=== PATIENT | female | born 1975 | race Caucasian/White ===

== ENCOUNTER 2023-07-22 19:50 | Emergency (ER) | payer OTHER, SELFPAY ==
[2023-07-22 19:56] VITALS: BP 97/77; PULSE 85; RESP 18; TEMP 37.3; O2SAT 98; BMI 34.5
--- NOTE | 2023-07-22 20:04 | PC.NURSE ---
pt presents to ED because pt states that she is having pain to her inner thigh on right side. pt denies injury and states it feels like she pulled a muscle but states she hasn't been exercising or doing anything to pull a muscle. pt states that she is here because she has a lot of allergies and can only smoke weed for her pain. pt states she smoked weed before arrival to help with pain. pt states swelling to right thigh and knee. denies any pain behind knees.
--- NOTE | 2023-07-22 20:10 | XR_ITS ---
The [address] [address] Patient Name: NISHA MONTAGUE MRN: [id number] date: 1975 Sex: F Assigned Patient Location: ED.MAIN Current Patient Location: ER Accession/Order Number: [id number] Exam Date: 07/22/2023 20:45 Report Date: 07/22/2023 21:19 At the request of: JEFFY LUCAS Procedure: XR knee RT 4V EXAM: XR knee RT 4V HISTORY: Fall COMPARISON: None. TECHNIQUE: 4 views FINDINGS: No osseous lesion, fracture, dislocation or subluxation. Joint spaces are normal. No visualized effusion. No visualized soft tissue edema. XR/XR knee RT 4V IMPRESSION: Normal x-rays Electronically authenticated by: DANIS ORTEGA Date: 07/22/2023 21:19
--- NOTE | 2023-07-22 20:10 | XR_ITS ---
The [address] [address] Patient Name: NISHA MONTAGUE MRN: [id number] date: 1975 Sex: F Assigned Patient Location: ED.MAIN Current Patient Location: ER Accession/Order Number: [id number] Exam Date: 07/22/2023 20:45 Report Date: 07/22/2023 21:19 At the request of: JEFFY LUCAS Procedure: XR femur RT 2V EXAM: XR femur RT 2V HISTORY: Fall COMPARISON: None. TECHNIQUE: 4 views of the femur and 4 views of the knee FINDINGS: No osseous lesion, fracture, dislocation or subluxation. Joint spaces are normal. No visualized effusion. No visualized soft tissue edema. XR/XR femur RT 2V IMPRESSION: Normal x-rays Electronically authenticated by: DANIS ORTEGA Date: 07/22/2023 21:19
--- NOTE | 2023-07-22 20:12 | ED.LOWEXI1 ---
HPI - Extremity Injury (Lower) General Chief Complaint: Extremity Injury, Lower Stated Complaint: Lower Pain Time Seen by Provider: 07/22/23 19:51 Source: patient Mode of arrival: walk-in History of Present Illness HPI Narrative: patient is a 48-year-old female who presents to the emergency department for the evaluation of right knee and thigh pain. She states she fell one month ago in her right knee has been swollen since. She reports pain to the right medial thigh in the last several days that is increasing. Patient has an extensive history of chronic pain syndrome, neuropathy and cervical radiculopathy. She has many drug intolerances, she states she has now developed an intolerance to Toradol and steroids. she denies any new paresthesias to the right lower extremity. She is not concerned for . Related Data Previous Rx's Medication Instructions Recorded diazepam 5 mg tablet (Valium) 5 mg PO TID PRN muscle pain #6 tabs 07/22/23 Allergies Allergy/AdvReac Type Severity Reaction Status Date / Time azithromycin [From Zithromax] Allergy Severe Verified 07/22/23 19:55 ketorolac [From Toradol] Allergy Severe Verified 07/22/23 19:55 levofloxacin [From Levaquin] Allergy Severe Verified 07/22/23 19:55 methylprednisolone Allergy Severe Verified 07/22/23 19:55 [From Solu-Medrol] morphine Allergy Severe Verified 07/22/23 19:55 NSAIDS (Non-Steroidal Allergy Severe Verified 07/22/23 19:55 Anti-Inflamma orphenadrine [From Norflex] Allergy Severe Verified 07/22/23 19:55 prednisone Allergy Severe Verified 07/22/23 19:55 sulfamethoxazole Allergy Severe Verified 07/22/23 19:55 [From Bactrim] tizanidine [From Zanaflex] Allergy Severe Verified 07/22/23 19:55 trimethoprim [From Bactrim] Allergy Severe Verified 07/22/23 19:55 Review of Systems ROS Constitutional Denies: fever or chills Ears, nose, mouth, and throat Denies: throat pain Cardiovascular Denies: chest pain Respiratory Denies: shortness of breath or cough Gastrointestinal Denies: nausea or vomiting Musculoskeletal Reports: back pain, neck pain, extremity pain, joint pain and joint swelling Neurological Denies: headache Endocrine Denies: excessive urination Hematologic/Lymphatic Denies: easy bruising Exam Narrative Exam Narrative: Gen.: Awake, alert, in no distress Head: Normocephalic, atraumatic ENT: Moist mucous membranes Respiratory: No respiratory distress Extremities: Moves extremities equally, mild tenderness of the right anterior patella, no joint effusion noted. Normal flexion and extension of the right knee. No appreciable swelling, firmness or redness of the right medial thigh. Normal flexion at the right hip Psych: Normal mood and affect Neuro: No focal neuro deficit Skin: Warm, dry, intact Constitutional Vital Signs, click to edit/add: Last Vital Signs Temp 99.1 F 07/22/23 19:56 Pulse 85 07/22/23 19:56 Resp 18 07/22/23 19:56 BP 97/77 07/22/23 19:56 Pulse Ox 98 07/22/23 19:56 O2 Del Method Room Air 07/22/23 19:56 Course Vital Signs Vital signs: Vital Signs Temperature 99.1 F 07/22/23 19:56 Pulse Rate 85 07/22/23 19:56 Respiratory Rate 18 07/22/23 19:56 Blood Pressure 97/77 07/22/23 19:56 Pulse Oximetry 98 07/22/23 19:56 Oxygen Delivery Method Room Air 07/22/23 19:56 Temperature 99.1 F 07/22/23 19:56 Pulse Rate 85 07/22/23 19:56 Respiratory Rate 18 07/22/23 19:56 Blood Pressure 97/77 07/22/23 19:56 Pulse Oximetry 98 07/22/23 19:56 Oxygen Delivery Method Room Air 07/22/23 19:56 MDM - Extremity Injury (Lower) MDM Narrative Medical decision making narrative: d-dimer is within normal limits, no concern for deep vein thrombosis at this time, exam of the right lower extremity is benign and x-rays of the right femur and knee are unremarkable. Patient with multiple drug ALLERGIES and intolerances. She states that Valium does work well for her for muscle spasm, her [facility] report does not show any recent benzodiazepine prescriptions and she is not currently prescribed any narcotics. She does have a prescription for Lyrica at home. She was instructed not to mix her Flexeril with the Valium, she is given a two day prescription of this medication until she can see her PCP. Right knee was wrapped with an Denzel wrap and she remains neurovascularly intact. Rest, ice, elevate. Follow-up with PCP and return to the Emergency Room if symptoms change or worsen. Medical Records Attestation: I reviewed the patient's medical records. Lab Data Attestation: I reviewed the patient's lab results. Labs: D-Dimer 0.26 Imaging Data XR femur: Attestation: I have reviewed the pertinent imaging results. Radiologist's impression: Procedure: XR femur RT 2V EXAM: XR femur RT 2V HISTORY: Fall COMPARISON: None. TECHNIQUE: 4 views of the femur and 4 views of the knee FINDINGS: No osseous lesion, fracture, dislocation or subluxation. Joint spaces are normal. No visualized effusion. No visualized soft tissue edema. IMPRESSION: Normal x-rays Electronically authenticated by: DANIS ORTEGA Date: 07/22/2023 21:19 XR knee: Attestation: I have reviewed the pertinent imaging results. Radiologist's impression: Procedure: XR knee RT 4V EXAM: XR knee RT 4V HISTORY: Fall COMPARISON: None. TECHNIQUE: 4 views FINDINGS: No osseous lesion, fracture, dislocation or subluxation. Joint spaces are normal. No visualized effusion. No visualized soft tissue edema. IMPRESSION: Normal x-rays Electronically authenticated by: DANIS ORTEGA Date: 07/22/2023 21:19 Discharge Plan Discharge Chief Complaint: Extremity Injury, Lower Clinical Impression: Acute pain of right knee Patient Disposition: Home, Self-Care Time of Disposition Decision: 21:23 Condition: Good Prescriptions / Home Meds: New diazepam [Valium] 5 mg tablet 5 mg PO TID PRN (Reason: muscle pain) Qty: 6 0RF Rx Instructions: DX: M79.604 Instructions: Knee Pain (ED) Stand Alone Forms: Portal Instructions Referrals: ALEJANDRO MCDERMOTT [Primary Care Provider] - 1 week
[2023-07-22 20:43] LABS: D Dimer 0.26 mg/L FEU (<=0.59)
[2023-07-22] MEDS: DIAZEPAM 5 MG TABLET PO (20:47)
[2023-07-22 20:48] VITALS: BP 112/68
[2023-07-22 21:09] VITALS: BP 95/72; PULSE 78; RESP 18; O2SAT 95
[2023-07-22 21:25] VITALS: BP 100/65; PULSE 79; RESP 18; O2SAT 94
== END 2023-07-22 21:35 | disposition home or self-care (01) ==
PROVIDERS: Physician Assistant; Emergency Provider Emergency Medicine; PCP Nurse Practitioner Family
DX: M25.561 Pain in right knee (principal)
CPT/HCPCS: 36415; 73552; 73564; 85378; 99284

== ENCOUNTER 2023-12-01 08:17 | Outpatient (OUT) | payer OTHER, SELFPAY ==
[2023-12-01 08:38] LABS: Basophils Percent Auto 0.3 % (0.2-2.0); Eosinophils Absolute Auto 0.1 10^3/uL (0.0-0.7); Eosinophils Percent Auto 1.5 % (0.9-7.0); Hematocrit 44.7 % (36.0-48.0); Hemoglobin 14.8 g/dL (12.0-16.0); Immature Granulocytes Abs Auto 0.03 10^3/uL (0.00-0.03); Immature Granulocytes Pct Auto 0.3 % (0.0-0.5); Lymphocytes Absolute Auto 2.6 10^3/uL (1.2-3.8); Lymphocytes Percent Auto 27.9 % (20.5-60.0); Mean Corpuscular HGB Conc 33.1 g/dL (29.9-35.2); Mean Corpuscular Hemoglobin 31.1 pg (26.7-34.0); Mean Corpuscular Volume 93.9 fL (81.0-99.0); Mean Platelet Volume 9.9 fL (9.5-13.5); Monocytes Absolute Auto 0.7 10^3/uL (0.3-0.8); Monocytes Percent Auto 7.3 % (1.7-12.0); Neutrophils Absolute Auto 5.7 10^3/uL (1.4-6.5); Neutrophils Percent Auto 62.7 % (43.0-75.0); Platelet Count 256 10^3/uL (150-450); Red Blood Count 4.76 10^6/uL (4.20-5.40); Red Cell Distribution Width 13.2 % (11.0-15.0); White Blood Count 9.2 10^3/uL (4.0-11.0)
[2023-12-01 09:38] LABS: Alanine Aminotransferase 28 U/L (14-59); Albumin Globulin Ratio 1.1; Albumin Level 4.1 g/dL (3.4-5.0); Alkaline Phosphatase 69 U/L (46-116); Anion Gap 13.1; Aspartate Amino Transferase 18 U/L (15-37); BUN Creatinine Ratio 9.2; Bilirubin Total 0.5 mg/dL (0.2-1.0); Calcium 9.1 mg/dL (8.5-10.1); Carbon Dioxide 26.9 mmol/L (21.0-32.0); Chloride 104 mmol/L (98-107); Chol HDL Ratio 2.9; Cholesterol 218 mg/dL (<=200); Estimated GFR (African America >60 (>=60); Estimated GFR (Non-African Ame >60 (>=60); Free T3 3.28 pg/mL (2.18-3.98); Globulin 3.8 g/dL; Glucose 96 mg/dL (74-106); HDL Cholesterol 75 mg/dL (40-60); Sodium 140 mmol/L (136-145); Thyroid Stimulating Hormone 3.167 uIU/mL (0.358-3.740); Total Protein 7.9 g/dL (6.4-8.2); Triglycerides 127 mg/dL (<=150); VLDL CHOLESTEROL 25.4 mg/dL
[2023-12-01 09:54] LABS: Estimated Average Glucose 108 mg/dL; Glycohemoglobin A1C 5.4 % (4.5-6.2)
== END 2023-12-01 08:18 | disposition home or self-care (01) ==
LOC: LAB 08:18
PROVIDERS: PCP Nurse Practitioner Family; Visit Provider Nurse Practitioner Family
DX: E16.1 Other hypoglycemia (principal)
CPT/HCPCS: 36415; 80053; 80061; 82306; 83036; 83525; 83540; 84436; 84443; 84481; 85025

== ENCOUNTER 2024-06-27 10:06 | Outpatient (OUT) | payer OTHER, SELFPAY ==
--- NOTE | 2024-06-27 10:08 | US_ITS ---
The [address] [address] Patient Name: NISHA MONTAGUE MRN: [id number] date: 1975 Sex: F Assigned Patient Location: [facility] Current Patient Location: Accession/Order Number: [id number] Exam Date: 06/27/2024 10:09 Report Date: 06/28/2024 07:13 At the request of: PADMINI GALINDO Procedure: US pelvis w/ transvaginal EXAMINATION: US pelvis w/ transvaginal HISTORY: PELVIC PAIN COMPARISON: No relevant comparison available. TECHNIQUE: Transabdominal and/or transvaginal sonographic examination was performed as indicated by examination type. FINDINGS: UTERUS: Hysterectomy. RIGHT OVARY: Not seen. LEFT OVARY: Normal size and appearance. Duplex Doppler demonstrates normal waveform and flow; resistive index 0.6. Ovary size: 2.2 x 1.1 x 1.6 cm CUL-DE-SAC: Unremarkable. No significant free fluid. BLADDER: Unremarkable. OTHER: None. US/US pelvis w/ transvaginal IMPRESSION: 1. No acute or suspicious findings to account for patient's symptoms. Electronically authenticated by: PATIENCE HERNANDEZ Date: 06/28/2024 07:13
== END 2024-06-27 10:07 | disposition home or self-care (01) ==
LOC: NOMS 10:06
PROVIDERS: PCP Nurse Practitioner Family; Visit Provider Obstetrics & Gynecology
DX: R10.2 Pelvic and perineal pain (principal)
CPT/HCPCS: 76830; 76856

== ENCOUNTER 2024-07-07 15:36 | Outpatient (OUT) | payer OTHER, SELFPAY ==
--- NOTE | 2024-07-07 | XR_ITS ---
The [address] [address] Patient Name: NISHA MONTAGUE MRN: [id number] date: 1975 Sex: F Assigned Patient Location: Current Patient Location: Accession/Order Number: [id number] Exam Date: 07/07/2024 15:44 Report Date: 07/08/2024 06:27 At the request of: KELLEE HERRERA Procedure: XR ankle DANA min 3V EXAMINATION: XR ankle DANA min 3V HISTORY: BILATERAL ANKLE PAIN COMPARISON: No relevant comparison available. FINDINGS: RIGHT FINDINGS: BONES: No significant arthropathy or acute abnormality. SOFT TISSUES: No visible soft tissue swelling. OTHER: Negative. LEFT FINDINGS: BONES: No significant arthropathy or acute abnormality. SOFT TISSUES: No visible soft tissue swelling. OTHER: Negative. XR/XR ankle DANA min 3V IMPRESSION: RIGHT CONCLUSION: Normal appearance LEFT CONCLUSION: Normal appearance Electronically authenticated by: PATIENCE HERNANDEZ Date: 07/08/2024 06:27
== END 2024-07-07 15:37 | disposition home or self-care (01) ==
LOC: EC 15:36
PROVIDERS: PCP Nurse Practitioner Family; Visit Provider Podiatrist Foot & Ankle Surgery
DX: M25.572 Pain in left ankle and joints of left foot (principal); M25.571 Pain in right ankle and joints of right foot
CPT/HCPCS: 73610

== ENCOUNTER 2024-08-08 16:04 | Outpatient (OUT) | payer OTHER, SELFPAY ==
--- OUTSIDE RECORDS SUMMARY | 2024-08-08 16:20 | XMS_ITS | CCD ---
Author Organization [facility] Inform ion [facility] Care Team Providers Care Fast Food Attendant Name Role Phone DELANO QUINTANILLA Unavailable Unavailable PEPE MACHUCA Dayna Unavailable Unavailable José Miguel Beltran Unavailable Armand De Paz Unavailable José Miguel Fuentes Unavailable Suresh HERNANDEZ Attending Unavailable Hugo Mendez MD Primary Care Provider [phone] Sharron ART HISTORIAN, Flower S Unavailable FLOWER MCDERMOTT Consulting Unavailable SHARRON, FLOWER Primary Care Unavailable SHARRON, FLOWER Attending Unavailable SHARRON, FLOWER Admitting Unavailable SHARRON, FLOWER Consulting Unavailable SHARRON, FLOWER Primary Care Unavailable SHARRON, FLOWER Attending Unavailable SHARRON, FLOWER Admitting Unavailable MATEO ., DR WASHINGTON Consulting Unavailable SHARRON, FLOWER Primary Care Unavailable MATEO ., DR WASHINGTON Attending Unavailable MATEO ., DR WASHINGTON Admitting Unavailable ZIEBER, DR PATIENCE Roman Consulting Unavailable SHARRON, FLOWER Primary Care Unavailable SHARRON, FLOWER Attending Unavailable SHARRON, FLOWER Admitting Unavailable ZIEBER, DR PATIENCE Roman Consulting Unavailable SHARRON, FLOWER Primary Care Unavailable SHARRON, FLOWER Attending Unavailable SHARRON, FLOWER Admitting Unavailable SHARRON, FLOWER Consulting Unavailable SHARRON, FLOWER Primary Care Unavailable ANDREA ., DR ARIAS Attending Unavailable ANDREA ., DR ARIAS Admitting Unavailable SHARRON, FLOWER Consulting Unavailable SHARRON, FLOWER Primary Care Unavailable SHARRON, FLOWER Attending Unavailable SHARRON, FLOWER Admitting Unavailable DR DANIS BERGER V Consulting Unavailable SHARRON, FLOWER Primary Care Unavailable SHARRON, FLOWER Attending Unavailable SHARRON, FLOWER Admitting Unavailable SHARRON, FLOWER Consulting Unavailable DR DANIS BERGER V Consulting Unavailable SHARRON, FLOWER Primary Care Unavailable MATEO ., DR WASHINGTON Attending Unavailable MATEO ., DR WASHINGTON Admitting Unavailable MATEO ., DR WASHINGTON Consulting Unavailable IDALIA, DR DANIS Harris Consulting Unavailable SHARRON, FLOWER Primary Care Unavailable SHARRON, FLOWER Attending Unavailable SHARRON, FLOWER Admitting Unavailable SHARRON, FLOWER Consulting Unavailable SHARRON, FLOWER Primary Care Unavailable SHARRON, FLOWER Attending Unavailable SHARRON, FLOWER Admitting Unavailable MATEO ., DR WASHINGTON Consulting Unavailable SHARRON, FLOWER Primary Care Unavailable MATEO ., DR WASHINGTON Attending Unavailable MATEO ., DR WASHINGTON Admitting Unavailable SHARRON, FLOWER Consulting Unavailable SHARRON, FLOWER Primary Care Unavailable SHARRON, FLOWER Attending Unavailable SHARRON, FLOWER Admitting Unavailable ZIEBER, DR PATIENCE Roman Consulting Unavailable SHARRON, FLOWER Primary Care Unavailable SHARRON, FLOWER Attending Unavailable SHARRON, FLOWER Admitting Unavailable SHARRON, FLOWER Consulting Unavailable SHAYY ., ELAINE BARDALES Consulting Unavailumberto BOCANEGRA ., DR BRICE Attending Unavailable DALJIT ., DR BRICE Admitting Unavailable SHARRON, FLOWER Primary Care Unavailable DANIS ORTEGA Consulting Unavailable JENELLE .NORAH Consulting Unavailable JENELLE ., NORAH Attending Unavailable JENELLE ., NORAH Admitting Unavailable SHARRON, FLOWER Primary Care Unavailable KELLEE CANO Consulting Unavailable RICHIE CRAWFORD Attending Unavailable DANYELL ., RICHIE Admitting Unavailable SHARRON, FLOWER Primary Care Unavailable JENELLE ., NORAH Consulting Unavailable RICHIE CRAWFORD Consulting Unavailable NON STAFF Primary Care Provider UnavailSAAD Tineo Attending Provider Hugo Mendez MD Primary Care Provider [phone] Hugo Mendez MD Unavailable Hugo Mendez MD Primary Care Provider [phone] PADMINI GALINDO Attending Unavailable HUGO MENDEZ Primary Care Unavailable DAKHIL, NOMA Referring Unavailable GODFRAY, RAKESH Referring Unavailable HUGO MENDEZ M Primary Care Unavailable GODFRAY, RAKESH Referring Unavailable HUGO MENDEZ M Primary Care Unavailable ANGELIC POPE Attending Unavailable MANDYAY, RAKESH Referring Unavailable HUGO MENDEZ M Primary Care Unavailable HUGO MENDEZ M Primary Care Unavailable GODFRAY, RAKESH Referring Unavailable HOY, HUGO M Primary Care Unavailable OG FARRELL Attending Unavailable DAKHIL, NOMA Referring Unavailable HOY, HUGO M Primary Care Unavailable DAKHIL, NOMA Referring Unavailable DAKHIL, NOMA Referring Unavailable HOY, HUGO M Primary Care Unavailable HOY, HUGO M Primary Care Unavailable HOY, HUGO M Referring Unavailable DAKHIL, NOMA Attending Unavailable CHICHO THOMPSONNE Referring Unavailable HOY, HUGO M Primary Care Unavailable HOY, HUGO M Primary Care Unavailable RAKESH THOMPSON Attending Unavailable HOY, HUGO M Primary Care Unavailable RAKESH THOMPSON Attending Unavailable Flower Hahn Attending Unavailable Flower Hahn Admitting Unavailable NON STAFF Primary Care Unavailable NON STAFF Primary Care Unavailable Sukumar Hill Attending Unavailab le Sukumar Hill Admitting Unavailab le Allergies Allergy Classification Reported Allergen(s) Allergy Type Date of Onset Reaction(s) Facility (17 sources) Morphine; Translations: [morphine] Drug Allergy 07-22-20 Vomiting [facility] Repository (6 sources) Orphenadrine; Translations: [Norflex] Drug Allergy heart race [facility] Repository (3 sources) Sulfamethoxazole / Trimethoprim Drug Allergy itching [facility] Other (5 sources) tiZANidine Drug Allergy 02-15-20 24 no appetite and parana [facility] (3 sources) Levoquin Propensity to adverse reactions joint swelling [facility] Other (2 sources) Azithromycin; Translations: [Zithromax] Drug Allergy 11-24-19 18 [facility] Repository (2 sources) levoFLOXacin; Translations: [Levaquin] Drug Allergy [facility] Repository (2 sources) Sulfamethoxazole / Trimethoprim; Translations: [Bactrim] Drug Allergy 11-24-19 18 [facility] Repository (3 sources) tiZANidine; Translations: [Zanaflex] Drug Allergy 03-22-20 18 [facility] Repository (20 sources) Glucocorticoid preparation; Translations: [CORTICOSTEROIDS (GLUCOCORTICOIDS)] Drug Intolerance 03-10-20 Unknown [facility] (20 sources) Non-steroidal anti-inflammatory agent; Translations: [NSAIDS (NON-STEROIDAL ANTI-INFLAMMATORY DRUG)] Drug Intolerance 03-10-20 Unknown [facility] (1 source) Corticosteroids Drug allergy (disorder) 11-02-19 [facility] Repository (2 sources) Morphine Drug Allergy [facility] Rep[facility] (1 source) NSAIDs Drug allergy (disorder) 11-02-19 23 [facility] Repository (3 sources) Azithromycin; Translations: [azithromycin] Drug Allergy 02-15-20 Nausea [facility] (3 sources) levoFLOXacin; Translations: [levofloxacin] Drug Allergy 02-15-20 Muscle Pain, joint swelling [facility] (3 sources) Orphenadrine; Translations: [orphenadrine] Drug Allergy 02-15-20 Palpitations, heart race [facility] (3 sources) Sulfamethoxazole; Translations: [sulfamethoxazole] Drug Allergy 02-15-20 Agitated, itching [facility] (3 sources) Sulfonamides (Antibiotic); Translations: [Sulfa (Sulfonamide Antibiotics)] Allergy to substance 02-15-20 Agitated [facility] (3 sources) Trimethoprim; Translations: [trimethoprim] Drug Allergy 02-15-20 Agitated, itching [facility] (1 source) Morphine Drug Allergy 02-15-20 [facility] Repository (1 source) tiZANidine Drug Allergy 02-15-20 [facility] Repository Medications Current Medications Medication Drug Class(es) Dates Sig (Normalized) Sig (Original) amoxicillin 875 mg / clavulanate 125 mg oral tablet (1 source) Penicillin-class Antibacterial Start: 09-26-2022 take 1 tablet by mouth every twelve hours Amoxicillin-Pot Clavulanate 875-125 MG 1 tablet Orally every 12 hrs for 10 day(s) Sep, Active 24 hr buPROPion hydrochloride 300 mg extended release oral tablet (20 sources) Aminoketone Start: 01-03-2018 buPROPion XL (WELLBUTRIN XL) 300 mg 24 hr tablet Every morning 01/03/2018 Active buPROPion HCl ER (XL) Active Wellbutrin Activ e Comment on above: Every morning cetirizine hydrochloride 10 mg oral capsule (18 sources) Histamine-1 Receptor Antagonist Cetirizine 10 mg cap Active clonazePAM 1 mg oral tablet (20 sources) Benzodiazepine Start: 02-15-2024 Clonazepam Active MG PO February 15, 2024 12:00am Start: 01-19-2024 take 2 tablets by mo uth every twelve hours clonazePAM (KLONOPIN) 0.5 mg tablet Take 1 mg by mouth every 12 hours. 01/19/2024 Active Start: 01-19-2024 take 1 tablet by donna th every twelve hours clonazePAM (KLONOPIN) 0.5 mg tablet Take 1 tablet by mouth every 12 hours. 0 01/19/2024 Active Comment on above: Take 1 tablet by donna th every 12 hours. enteric contrast (will be provided with radiology test) (1 source) Start: 02-29-2024 End: 03-01-2024 enteric contrast (will be provided with radiology test) Indications: Chronic abdominal pain For CT ABD/PEL W IVCON Routine order Administer, As Directed One Time Only, via Oral, Rectal, both Oral and Rectal, Enteric Tube, Stoma or Indwelling Catheter, Enteric Contrast as designated per enteric contrast guidelines 1 Each 0 02/29/2024 03/01/2024 Active esomeprazole 40 mg delayed release oral capsule (20 sources) Proton Pump Inhibitor Start: 02-15-2024 Esomeprazole Magnesium Active MG PO February 15, 2024 12:00am Start: 05-02-2023 End: 04-26-2024 take 1 capsule by mouth twice daily before mealtime esomeprazole (NEXIUM) 40 mg capsule Take 1 capsule by mouth two times a day before meals. 60 capsule 1 04/26/2024 Active Comment on above: 1 capsule. Estroven - (3 sources) Start: 11-07-2020 Estroven - as directed Orally Nov, Active famotidine 10 mg oral tablet (20 sources) Histamine-2 Receptor Antagonist famotidine (PEPCID) 10 mg tablet Active Pepcid Active hydrOXYzine (3 sources) Antihistamine hydrOXYzine HCl Active hyoscyamine sulfate 0.125 mg oral tablet (13 sources) Start: 04-26-2024 End: 08-01-2024 take 1 tablet by mouth twice daily in the morning, then take 9 tablets by mouth in the evening hyoscyamine (LEVSIN) 0.125 mg tablet TAKE 1 TABLET BY MOUTH TWO TIMES A DAY AT 6 AM AND 9 PM 60 tablet 1 08/01/2024 Active Start: 02-15-2024 Hyoscyamine Carver lfate Active MG PO February 15, 2024 12:00am iv contrast (will be provided with radiology test) (1 source) Start: 02-29-2024 End: 03-01-2024 iv contrast (will be provided with radiology test) Indications: Chronic abdominal pain CT ABD/PEL -Inject, intravenously, once for 1 dose.No IV access, insert saline lock prior to the beginning of sedation, infusion, injection of imaging exam. Discontinue saline lock post exam. If Pt. has a central line or IVAD, may access for administration according to line specific nursing protocol. Once exam is complete flush line and de-access according to line specific nursing protocol in the CT contrast administration guidelines link. 1 Each 0 02/29/2024 03/01/2024 Active Omeprazole (6 sources) Proton Pump Inhibitor Omeprazole Active PriLOSEC Active oxybutynin (20 sources) Cholinergic Muscarinic Antagonist Start: 02-15-2024 Oxybutynin Chloride Active MG PO February 15, 2024 12:00am Start: 11-24-2023 take 1 tablet by donna th every hour oxybutynin ER (DITROPAN XL) 15 mg 24 hr Extended Rel Tab Take 1 tablet by mouth every afternoon. 11/24/2023 Active Oxybutynin Chlor felicia ER Active Comment on above: Take 1 tablet by donna th every afternoon. sertraline 100 mg oral tablet (20 sources) Serotonin Reuptake Inhibitor Start: 01-03-2018 take 1 tablet by mouth once daily in the morning sertraline (ZOLOFT) 100 mg tablet Take 100 mg by mouth every morning. 01/27/2024 Active Sertraline HCl N ot-Taking Comment on above: Take 100 mg by mouth every morning. sucralfate 1000 mg oral tablet (8 sources) Aluminum Complex Start: 04-26-2024 End: 08-27-2024 take 1 tablet by mouth twice daily before mealtime sucralfate (CARAFATE) 1 gram tablet TAKE 1 TABLET BY MOUTH TWO TIMES A DAY BEFORE MEALS. 60 tablet 07/28/2024 08/27/2024 Active Completed/Discontinued Medications Medication Drug Class(es) Dates Sig (Normalized) Sig (Original) diazePAM 2 mg oral tablet (2 sources) Benzodiazepine Start: 01-03-2018 End: 01-05-2018 take 1 tablet by mouth three times daily Diazepam (Valium) 2 mg tablet Discontinued 2 MG PO Three times daily 6 2 January 03, 2018 1:00am January 05, 2018 1:03am fluticasone propionate 0.05 mg/actuat metered dose nasal spray (5 sources) Corticosteroid Start: 01-03-2018 End: 02-15-2024 Fluticasone Propionate (Flonase Allergy Relief) 50 mcg/actuation [place],Suspension Discontinued 2 SPRAY INTRANASAL Daily January 03, 2018 1:00am February 15, 2024 4:00pm Fluticasone Prop ionate Not-Taking Ketorolac (3 sources) Nonsteroidal Anti-inflammatory Drug, Cyclooxygenase Inhibitor Ketorolac Trome thamine Not-Taking Ketorolac Tromet hamine Active Methocarbamol (3 sources) Muscle Relaxant Robaxin Not-Taki ng methylPREDNISolone 4 mg oral tablet (3 sources) Corticosteroid Start: Medrol (Wiliam) 4 MG as directed Orally for 6 days Nov, Not-Taking mupirocin 0.02 mg/mg topical ointment (3 sources) RNA Synthetase Inhibitor Antibacterial Start: Mupirocin 2 % 1 application to affected area Externally 2 times a day for 7 days Aug, Not-Taking naproxen 375 mg oral tablet (3 sources) Nonsteroidal Anti-inflammatory Drug Start: take 1 tablet by mouth every twelve hours at mealtime as needed Naproxen 375 MG 1 tablet with food or milk as needed Orally every 12 hrs for 7 days Aug, Not-Taking pantoprazole 20 mg delayed release oral tablet (2 sources) Proton Pump Inhibitor Start: End: take 1 tablet by mouth once daily Pantoprazole (Protonix) 20 mg Tablet,Delayed Release (Dr/Ec) Discontinued 20 MG PO Daily January 03, 2018 1:00am February 15, 2024 4:01pm Triamcinolone (2 sources) Corticosteroid Start: KENALOG - 10 mg Nov, 60 mg varenicline 1 mg oral tablet (2 sources) Partial Cholinergic Nicotinic Agonist Start: End: 04-15-2 024 Varenicline Discontinued MG PO February 15, 2024 12:00am February 15, 2024 4:01pm Problems Active Problems Problem Classification Problem Date Documented Da te Episodic/Chronic Deficiency and other anemia (1 source) Anemia, unspecified; Translations: [ANEMIA UNSPECIFIED] Onset: 03-05-2023 Episodic Diabetes mellitus without complication (1 source) Other abnormal glucose; Translations: [OTHER ABNORMAL GLUCOSE] Onset: 03-05-2023 Episodic Diseases of white blood cells (4 sources) Other elevated white blood cell count; Translations: [OTH ELEVATED WHITE BLOOD CELL COUNT] Onset: 03-02-2023 Chronic Disorders of teeth and jaw (1 source) Other specified disorders of teeth and supporting structures; Translations: [OTH SPEC DISORDERS TEETH SUPP STRCT] Onset: 03-10-2023 Episodic Esophageal disorders (2 sources) Gastro-esophageal reflux disease with esophagitis; Translations: [Gastroesophageal reflux disease with esophagitis without hemorrhage] 02-29-2024 Chronic Gastroduodenal ulcer (except hemorrhage) (2 sources) Peptic ulcer; Translations: [Peptic ulcer, site unspecified, unspecified as acute or chronic, without hemorrhage or perforation] 02-29-2024 Chronic Gastrointestinal hemorrhage (2 sources) Rectal hemorrhage; Translations: [Hemorrhage of anus and rectum] 02-29-2024 Episodic Genitourinary symptoms and ill-defined conditions (1 source) Unspecified urinary incontinence; Translations: [UNSPECIFIED URINARY INCONTINENCE] Onset: 04-16-2022 Chronic Headache; including migraine (4 sources) Headache; including migraine; Translations: [HEADACHE UNSPECIFIED] Onset: 03-08-2023 Other aftercare (1 source) Other nursing home (current) drug therapy; Translations: [OTH MAINT MECHANIC CURRENT DRUG THERAPY] Onset: 03-10-2023 Episodic Other connective tissue disease (5 sources) History of cervical spine fusion; Translations: [Arthrodesis status] Episodic Other connective tissue disease (4 sources) Spasm; Translations: [Other muscle spasm] Episodic Other connective tissue disease (5 sources) Pain in left arm; Translations: [PAIN IN LEFT ARM] Onset: 12-31-2022 Episodic Other connective tissue disease (1 source) Pain in left arm; Translations: [Pain in left arm] Episodic Other connective tissue disease (2 sources) Pain of bilateral hands; Translations: [Pain in right hand] 02-19-2024 Episodic Other endocrine disorders (5 sources) Other hypoglycemia; Translations: [OTHER HYPOGLYCEMIA] Onset: 01-31-2023 Chronic Other gastrointestinal disorders (2 sources) Irritable bowel syndrome; Translations: [Mixed irritable bowel syndrome] 02-29-2024 Chronic Other injuries and conditions due to external causes (2 sources) Muscle strain; Translations: [Other injury of unspecified body region, initial encounter] 10-14-2023 Episodic Other nervous system disorders (4 sources) Other chronic pain; Translations: [Chronic midline low back pain without sciatica] Onset: 02-19-2024 Chronic Other nervous system disorders (4 sources) Paresthesia of upper limb; Translations: [Anesthesia of skin] Episodic Other nervous system disorders (1 source) Paresthesia; Translations: [Paresthesia of skin] Episodic Other nervous system disorders (2 sources) Paresthesia of hand ; Translations: [Anesthesia of skin] 02-19-2024 Episodic Other non-traumatic joint disorders (2 sources) Pain in right hip joint; Translations: [Pain in right hip] 03-11-2024 Episodic Other non-traumatic joint disorders (1 source) Pain in right hip; Translations: [Pain in right hip] Onset: 05-27-2024 Episodic Other screening for suspected conditions (not mental disorders or infectious disease) (14 sources) Encounter for screening for malignant neoplasm of rectum; Translations: [Other abnormal and inconclusive findings on diagnostic imaging of breast] Onset: 04-22-2022 Episodic Other upper respiratory infections (1 source) Acute sinusitis, unspecified Episodic Paralysis (1 source) 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; Translations: [Monoplegia of upper limb affecting left nondominant side] Chronic Spondylosis; intervertebral disc disorders; other back problems (13 sources) Other spondylosis with radiculopathy, lumbar region; Translations: [Other intervertebral disc degeneration, lumbosacral region] Onset: 03-01-2018 Chronic Spondylosis; intervertebral disc disorders; other back problems (20 sources) Cervical radiculopathy; Translations: [Radiculopathy, cervical region] Onset: 04-04-2022 Episodic Sprains and strains (3 sources) Strain of other muscle(s) and tendon(s) of posterior muscle group at lower leg level, left leg, initial encounter; Translations: [Low back strain] Onset: 02-06-2022 Resolved: 02-06-2022 Episodic Substance-related disorders (1 source) Nicotine dependence, cigarettes, uncomplicated; Translations: [NICOTINE DEPEND CIGARETTES UNCOMP] Onset: 12-01-2022 Chronic Substance-related disorders (1 source) Cannabis use, unspecified, uncomplicated; Translations: [CANNABIS USE UNS UNCOMPLICATED] Onset: 03-10-2023 Episodic Superficial injury; contusion (2 sources) Contusion of right foot, initial encounter; Translations: [Contusion of right hand, initial encounter] Onset: 11-14-2021 Resolved: 11-14-2021 Episodic Unclassified (3 sources) COUGH, UNSPECIFIED; Translations: [COUGH, UNSPECIFIED] Onset: 05-27-2022 Unclassified (2 sources) CONTACT W/AND (SUSP) EXPOS COVID-19; Translations: [CONTACT W/AND (SUSP) EXPOS COVID-19] Onset: 04-12-2022 Unclassified (3 sources) LOW BACK PAIN, UNSPECIFIED; Translations: [LOW BACK PAIN, UNSPECIFIED] Onset: 04-10-2022 Unclassified (1 source) Chronic midline low back pain without sciatica; Translations: [Chronic midline low back pain without sciatica] Onset: 05-27-2024 Viral infection (1 source) COVID-19; Translations: [COVID-19] Onset: 04-12-2022 Past or Other Problems Problem Classification Problem Date Documented Date Episodic/Chronic Abdominal pain (3 sources) Chronic abdominal pain; Translations: [Unspecified abdominal pain] Onset: 03-21-2024 02-29-2024 Episodic Immunizations and screening for infectious disease (1 source) Encounter for screening for human papillomavirus (HPV); Translations: [ENC SCREENING HUMAN PAPILLOMAVIRUS] Onset: 04-24-2022 Episodic Nausea and vomiting (4 sources) Nausea; Translations: [Nausea] Onset: 03-21-2024 02-29-2024 Episodic Other connective tissue disease (1 source) Pain in left lower leg Onset: 02-06-2022 Resolved: 02-06-2022 Episodic Other connective tissue disease (2 sources) Arthrodesis status; Translations: [ARTHRODESIS STATUS] Onset: 12-01-2022 Episodic Other connective tissue disease (3 sources) Other symptoms and signs involving the musculoskeletal system; Translations: [Other musculoskeletal symptoms referable to limbs] Onset: 03-18-2024 02-19-2024 Episodic Other connective tissue disease (2 sources) Pain in right hand; Translations: [Pain in both hands] Onset: 02-15-2024 Episodic Other connective tissue disease (1 source) Pain in left hand; Translations: [Pain in both hands] Onset: 03-18-2024 Episodic Other injuries and conditions due to external causes (1 source) Unspecified injury of right foot, initial encounter Onset: 11-14-2021 Resolved: 11-14-2021 Episodic Other nervous system disorders (1 source) Anesthesia of skin; Translations: [Numbness and tingling in both hands] Onset: 03-18-2024 Episodic Other nervous system disorders (1 source) Paresthesia of skin; Translations: [Numbness and tingling in both hands] Onset: 03-18-2024 Episodic Residual codes; unclassified (1 source) Family history of malignant neoplasm of kidney; Translations: [FAM HX MALIGNANT NEOPLASM KIDNEY] Onset: 11-09-2022 Episodic Residual codes; unclassified (1 source) Family history of malignant neoplasm of trachea, bronchus and lung; Translations: [FAM HX MALIG NEOPLSM TRACH BRON LNG] Onset: 11-09-2022 Episodic Residual codes; unclassified (1 source) Family history of malignant neoplasm of other genital organs; Translations: [FAM HX MALIG NEOPLSM OTH GENIT ORGN] Onset: 11-09-2022 Episodic Unclassified (1 source) COUGH, UNSPECIFIED; Translations: [COUGH, UNSPECIFIED] Onset: 05-22-2022 Unclassified (1 source) CONTACT W/AND (SUSP) EXPOS COVID-19; Translations: [CONTACT W/AND (SUSP) EXPOS COVID-19] Onset: 04-09-2022 Unclassified (1 source) LOW BACK PAIN, UNSPECIFIED; Translations: [LOW BACK PAIN, UNSPECIFIED] Onset: 04-04-2022 Results Test Name Value Interpretation Reference Range Facility CNTHERAPYon 07-08-2024 CNTHERAPY OT/PT/Speech Visit (LOPTRM) [facility] ([id number]) 1975 F Date Time Provider Department 07/08/24 1:45 PM ANGELIC POPE Date Time Provider Department Center 07/08/2024 1:45 PM [id number] POPEfahad Reason for Visit: Physical Therapy [503] Primary Visit Diagnosis:Chronic midline low back pain without sciatica [M54.50, G89.29] Allergies As of Date: 07/08/2024 Noted Allergy Reaction MORPHINE 07/22/2023 11 - Vomiting NSAIDS (NON-STEROIDAL ANTI-INFLAM*03/10/20 23 16 - Unknown Comments: Stomach upset , GI Issues, bleeding STEROIDS (CORTICOSTEROIDS (GLUCOC*03/10/2023 16 - Unknown Comments: PT states Bleeding Date Reviewed: 04/26/2024 Reviewed by: Maribell Becerra, RN - Fully Assessed Prescriptions as of 07/08/2024 - sucralfate (CARAFATE) 1 gram tablet TAKE 1 TABLET BY MOUTH TWO TIMES A DAY BEFORE MEALS. - esomeprazole (NEXIUM) 40 mg capsule Take 1 capsule by mouth two times a day before meals. - hyoscyamine (LEVSIN) 0.125 mg tablet Take 1 tablet by mouth two times a day at 6 am and 9 pm. - buPROPion XL (WELLBUTRIN XL) 300 mg 24 hr tablet Every morning - Cetirizine 10 mg cap - clonazePAM (KLONOPIN) 0.5 mg tablet Take 1 mg by mouth every 12 hours. - famotidine (PEPCID) 10 mg tablet - sertraline (ZOLOFT) 100 mg tablet Take 100 mg by mouth every morning. - oxybutynin ER (DITROPAN XL) 15 mg 24 hr Extended Rel Tab Take 1 tablet by mouth every afternoon. [employer] Etcher: Addendum Therapy (PT/OT/Speech/Resp) ID: [id number] 07/08/2024 2:36 PM Author: ANGELIC POPE Signed by ANGELIC POPE PT on 07/08/2024 at 2:36 PM * * * This document replaces document [id number] * * * Document text: Program_ID:[id number] Access Code: [email or web address] URL: [email or web address] Date: 07-08-2024 Prepared By: Nella Dupont Program Notes Exercises - Standing Hip Extension with Anchored Resistance - 2 x daily - 7 x weekly - 2 sets - 10 reps - Standing Hip Abduction with Anchored Resistance - 2 x daily - 7 x weekly - 2 sets - 10 reps - Bug - 2 x daily - 7 x weekly - 2 sets - 10 reps - Prone Hip Extension - 2 x daily - 7 x weekly - 2 sets - 10 reps - Sit to Stand Without Arm Support - 2 x daily - 7 x weekly - 3 sets - 10 reps -------- [facility] THERAPY NTon 07-08-2024 THERAPY NT HNO ID: [id number] Author: ANGELIC POPE PT Service: ? Author Type: Physical Therapist Type: Therapy (PT/OT/Speech/Resp) Filed: 07/08/2024 14:36 Note Text: Program_ID:[id number] Access Code: [email or web address] URL: [email or web address] Date: 07-08-2024 Prepared By: Nella Dupont Program Notes Exercises - Standing Hip Extension with Anchored Resistance - 2 x daily - 7 x weekly - 2 sets - 10 reps - Standing Hip Abduction with Anchored Resistance - 2 x daily - 7 x weekly - 2 sets - 10 reps - Bug - 2 x daily - 7 x weekly - 2 sets - 10 reps - Prone Hip Extension - 2 x daily - 7 x weekly - 2 sets - 10 reps - Sit to Stand Without Arm Support - 2 x daily - 7 x weekly - 3 sets - 10 reps [facility] CNTHERAPYon 06-17-2024 CNTHERAPY OT/PT/Speech Visit (SARAHPTRM) AURORA MONTAGUE ([id number]) 1975 F Date Time Provider Department 06/17/24 3:30 PM NELLA DUPONT Date Time Provider Department Center 06/17/2024 3:30 PM [id number] DUPONT Reason for Visit: Physical Therapy [503] Primary Visit Diagnosis:Chronic midline low back pain without sciatica [M54.50, G89.29] Allergies As of Date: 06/17/2024 Noted Allergy Reaction MORPHINE 07/22/2023 11 - Vomiting NSAIDS (NON-STEROIDAL ANTI-INFLAM*03/10/20 16 - Unknown Comments: Stomach upset , GI Issues, bleeding STEROIDS (CORTICOSTEROIDS (GLUCOC*03/10/2023 16 - Unknown Comments: PT states Bleeding Date Reviewed: 04/26/2024 Reviewed by: Maribell Becerra, RN - Fully Assessed Prescriptions as of 06/17/2024 - esomeprazole (NEXIUM) 40 mg capsule Take 1 capsule by mouth two times a day before meals. - hyoscyamine (LEVSIN) 0.125 mg tablet Take 1 tablet by mouth two times a day at 6 am and 9 pm. - buPROPion XL (WELLBUTRIN XL) 300 mg 24 hr tablet Every morning - Cetirizine 10 mg cap - clonazePAM (KLONOPIN) 0.5 mg tablet Take 1 mg by mouth every 12 hours. - famotidine (PEPCID) 10 mg tablet - sertraline (ZOLOFT) 100 mg tablet Take 100 mg by mouth every morning. - oxybutynin ER (DITROPAN XL) 15 mg 24 hr Extended Rel Tab Take 1 tablet by mouth every afternoon. Machine Precision Etcher: Therapy (PT/OT/Speech/Resp) ID: [id number] 06/17/2024 3:58 PM Author: NELLA DUPONT Signed by NELLA DUPONT PT on 06/17/2024 at 3:58 PM Document text: Program_ID:[id number] Access Code: [email or web address] URL: [email or web address] Date: 06-17-2024 Prepared By: Nella Dupont Program Notes Exercises - Supine Bridge - 1-2 x daily - 7 x weekly - 1 sets - 10-15 reps - Active Straight Leg Raise with Quad Set - 1-2 x daily - 7 x weekly - 1 sets - 10 reps - Sidelying Hip Abduction - 1-2 x daily - 7 x weekly - 1-2 sets - 10-15 reps - Seated Hamstring Stretch - 1 x daily - 7 x weekly - sets - 2 reps - Marching Bridge - 1 x daily - 7 x weekly - 1 sets - 10 reps - Hooklying Isometric Hip Flexion with Opposite Arm - 1-2 x daily - 7 x weekly - 1 sets - 10 reps -------- [facility] THERAPY NTon 06-17-2024 THERAPY NT HNO ID: [id number] Author: NELLA DUPONT PT Service: Physical Therapy Author Type: Physical Therapist Type: Therapy (PT/OT/Speech/Resp) Filed: 06/17/2024 15:58 Note Text: Program_ID:[id number] Access Code: [email or web address] URL: [email or web address] Date: 06-17-2024 Prepared By: Nella Dupont Program Notes Exercises - Supine Bridge - 1-2 x daily - 7 x weekly - 1 sets - 10-15 reps - Active Straight Leg Raise with Quad Set - 1-2 x daily - 7 x weekly - 1 sets - 10 reps - Sidelying Hip Abduction - 1-2 x daily - 7 x weekly - 1-2 sets - 10-15 reps - Seated Hamstring Stretch - 1 x daily - 7 x weekly - sets - 2 reps - Marching Bridge - 1 x daily - 7 x weekly - 1 sets - 10 reps - Hooklying Isometric Hip Flexion with Opposite Arm - 1-2 x daily - 7 x weekly - 1 sets - 10 reps [facility] [id number] 05-30-2024 [id number] HNO ID: [id number] Author: NELLA DUPONT PT Service: ? Author Type: Physical Therapist Type: [id number] Filed: 05/30/2024 11:05 Note Text: [facility] Physical Therapy Plan of Care Certification Patient Name: Aurora Montague : 1975 [facility] #: [id number] Date: 05/27/2024 To: Rakesh Thompson PA-C From Therapist: Nella Dupont PT RE: Patient Certification/ Recertification Your review, approval and electronic signature are required in order to comply with Payor: [facility] MEDICAID / Plan: [employer] MEDICAID / Product Type: Medicaid / regulations. The identified Physical Therapy PLAN OF CARE for the patient is as follows: M54.50, G89.29 Chronic midline low back pain without sciatica (primary encounter diagnosis) M47.816 Lumbar spondylosis M54.42, M54.41, G89.29 Chronic bilateral low back pain with bilateral sciatica M25.551 Pain in right hip PLAN OF CARE: Assessment: Aurora Montague presents with chief complaint of hip pain that interferes with rising from a chair, standing, walking, sitting, stair negotiation, heavy exertion, physical activities, recreational activities . She presents with impairments in ADL's, balance, overall function, range of motion, strength, symptom management, and tissue tenderness. PROMIS? (Patient-Reported Outcomes Measurement Information System) scores were reviewed and identified as a rehabilitation concern. Prognosis for therapy is Fair due to: clinical presentation, chronic nature of impairments . She will benefit from skilled therapy services to meet the goals established for this plan of care as noted below. Because of above mentioned impairments and past medical history patient qualifies as a low complexity evaluation. Goals for Episode of Care: created on 05/27/24 through 07/26/24 [place] in home exercise program. Patient will decrease pain rating by 2 points to meet minimal clinical important difference for numeric pain rating scale. Patient will demonstrate increase in R LE strength to 4+/5 during manual muscle testing in order to improve function for basic self-care tasks, home management tasks, and moderate to heavy functional tasks. Patient will increase flexibility of bilateral hamstrings to WNL to improve ability to maintain proper posture, improve mechanics, and decrease pain. Perform ADLs and work duties with decreased report of symptoms/pain in 8 weeks. Patient Goals: Out of pain so I can do my job Planned Interventions, Frequency, and Duration: Current Frequency: 1x every other week Duration: 8 weeks Total Number of Visits Planned: 4 Planned Treatment Interventions: Neuromuscular re-education (26719), Therapeutic exercise (04866), Manual therapy (66335), Therapeutic activities (68853), Self-halfway management (75727), Gait Training (92980), Patient/Family/Careg iver Education PLAN FOR NEXT VISIT: Review HEP, LE strength Patient demonstrates good understanding of plan of care and treatment. The above goals and plan of care were discussed and agreed upon by patient/family. For further details regarding this patient refer to the Physical Therapy electronically documented visit dated 05/27/2024. Provider Attestation I have reviewed the treatment plan for Aurora Montague CCDante# [id number] for the period of 05/27/24 -- 07/26/24, established on 05/27/2024. Signature certifies the need for therapy services. [facility] CNTHERAPYon 05-27-2024 CNTHERAPY OT/PT/Speech Visit (LOPTRM) AURORA MONTAGUE ([id number]) 1975 F Date Time Provider Department 05/27/24 2:00 PM NELLA DUPONT Date Time Provider Department [place] 05/27/2024 2:00 PM [id number] DUPONT Sunitha Tyson Reason for Visit: PT Eval [747] Patient Education [91] Primary Visit Diagnosis:Chronic midline low back pain without sciatica [M54.50, G89.29] Other Visit Diagnoses:Lumbar spondylosis [M47.816] Chronic bilateral low back pain with bilateral sciatica [M54.42, M54.41, G89.29] Pain in right hip [M25.551] Allergies As of Date: 05/27/2024 Noted Allergy Reaction MORPHINE 07/22/2023 11 - Vomiting NSAIDS (NON-STEROIDAL ANTI-INFLAM*03/10/20 23 16 - Unknown Comments: Stomach upset , GI Issues, bleeding STEROIDS (CORTICOSTEROIDS (GLUCOC*03/10/2023 16 - Unknown Comments: PT states Bleeding Date Reviewed: 04/26/2024 Reviewed by: Maribell Becerra, RN - Fully Assessed Prescriptions as of 05/30/2024 - esomeprazole (NEXIUM) 40 mg capsule Take 1 capsule by mouth two times a day before meals. - hyoscyamine (LEVSIN) 0.125 mg tablet Take 1 tablet by mouth two times a day at 6 am and 9 pm. - buPROPion XL (WELLBUTRIN XL) 300 mg 24 hr tablet Every morning - Cetirizine 10 mg cap - clonazePAM (KLONOPIN) 0.5 mg tablet Take 1 mg by mouth every 12 hours. - famotidine (PEPCID) 10 mg tablet - sertraline (ZOLOFT) 100 mg tablet Take 100 mg by mouth every morning. - oxybutynin ER (DITROPAN XL) 15 mg 24 hr Extended Rel Tab Take 1 tablet by mouth every afternoon. Machine Precision Etcher: Therapy (PT/OT/Speech/Resp) ID: [id number] 05/27/2024 2:34 PM Author: NELLA DUPONT Signed by NELLA DUPONT PT on 05/27/2024 at 2:34 PM Document text: Program_ID:[id number] Access Code: [email or web address] URL: [email or web address] Date: 05-27-2024 Prepared By: Nella Dupont Program Notes Exercises - Supine Bridge - 1-2 x daily - 7 x weekly - 1 sets - 10-15 reps - Active Straight Leg Raise with Quad Set - 1-2 x daily - 7 x weekly - 1 sets - 10 reps - Sidelying Hip Abduction - 1-2 x daily - 7 x weekly - 1-2 sets - 10-15 reps - Seated Hamstring Stretch - 1 x daily - 7 x weekly - sets - 2 reps -------- [facility] THERAPY NTon 05-27-2024 THERAPY NT HNO ID: [id number] Author: NELLA DUPONT PT Service: Physical Therapy Author Type: Physical Therapist Type: Therapy (PT/OT/Speech/Resp) Filed: 05/27/2024 14:34 Note Text: Program_ID:[id number] Access Code: [email or web address] URL: [email or web address] Date: 05-27-2024 Prepared By: Nella Dupont Program Notes Exercises - Supine Bridge - 1-2 x daily - 7 x weekly - 1 sets - 10-15 reps - Active Straight Leg Raise with Quad Set - 1-2 x daily - 7 x weekly - 1 sets - 10 reps - Sidelying Hip Abduction - 1-2 x daily - 7 x weekly - 1-2 sets - 10-15 reps - Seated Hamstring Stretch - 1 x daily - 7 x weekly - sets - 2 reps [facility] SURGICAL PATHOLOGYOrdered By : Dalila Logan on 04-28-2024 Case Report Surgical Pathology Report Case: [id number] Authorizing Provider: Ashley Shah MD Collected: 04/26/2024 11:12 AM Ordering Location: Ambulatory Surgery Received: 04/26/2024 11:32 PM Pathologist: Dalila Logan MD Specimens: A) - Small Bowel, Duodenum, Biopsy, r/o celiac B) - Stomach, Antrum, Biopsy, r/o hpylori C) - Stomach, Biopsy, body r/o hpylori D) - Colon, Biopsy, random colon r/o microscopic colitis E) - Colon, Sigmoid, Polyp, polyp x1 [facility] Work Phone: Diagnosis Comment b4pqiPTmCFPhuNDuVIDw YIugksYhYBMsgEOxJ9Fw svsgXRauSO5qXC4fhMys bRYxnUZjXINuCvOuf1cr p750hYRpy1miJPNFgdhr iUi9xDmkY25wu4F7Uwzl O45vfWJwBBF0OVJpIJZd mVVfJNOdWJV1PTTqhSBx Y7kyTKJfIF5waphqTKjy SLqnZDYlrPG5QGKzmQAq L9ThIXUuPGjfTTEinds6 JiZkTv4xaCHtoJnlJBgf YXJkXHBsYWluXGZzMjBc lBSkDH25kYAroXukRRP8 PTUksOT2OAtzHEPSUMNl B2Aug51tOLrlfbMmRBeh sPwjKEEji78uuAYyxBGI LiBccGFyfQ== [facility] Work Phone: FINAL DIAGNOSIS e6zvmFZeMMWzhVPjQAYs RNpjdfXoFGVgrGSvI3Dn ptvgSWpvLA4yFI8biRtm rNQsgGDoUMLhCnUrx8eu s053rPNkg0ptAWSFrdax uSf6sIpyL69qc7U9Wkiy X54erBWxLCO2OXYvPOHa vTFuDQYvCDN9TMWxjNYt V1msONIvDY8lbluwURfc NAhmTAFmcKT9LVNbdZFq C1HlWTLwWYpjIJSwakd8 MlXzBv8usEHipIpuSDog YXJkXHBsYWluXGZzMjBc cGFyIEEuICBTbWFsbCBp iaGvu8MhekGcJKM5u3Nk rrLjYTZrjF4gb6npiVKl UD4TjJ1sRQ6thNFjrEWo b3Abh3j6lLXjymVjwRtt aSWaO1HcgYHqPUKrg0ws Z1hrKMUyns2xuXQukGO5 XHBhciAtTmVnYXRpdmUg Tu5vVRA2m2Nroce4uTZv MK9rTSMqxKzvYmNfmGRc QGCmRHOnqgzcOEBqWn2o DLV5v67pZ3zsBDOqhGG3 mKetKlunlUQ3PLOnogAd X4EidVHbBpWuqcNhDXmb zAFxy9ItEHbelExbybLj U8FlucPuL7AefYFupJU6 mKcvsSNgXQ4CbmDwwLX2 k48sitKye6vzA6krNHA7 aAHwgwWjZD2nVDndxOmy b8TtY9IlisWtbsjwprnm aMMhDTIpzplqXOCdHq0a YXM7q56sE2ubIZWaTAsk PWUsj7VxePwcJFRwWGdq l1OsoUFdu5t8tgTgOpZy pVRjp5Pgy4o5tXXfasOj iVhmaPPwL8DawZCcAPQk p4qaN4xrOOEfuf8pfQRs xWK9ZUSepkQpAm3iqRaf eT9vg9JurJ1ru3wkHsIh ioafHY1jKZYdCxWCWFil N52aPVC5KTXcf8KrUU5b v94oSZhiFEFabJVfEPJf ZGOAo3owycixcrVbXM0g IMZonC8en1ikjUXgTN4H h1kqstduVV06E96uGYC8 uNMqBG5bcUXca7QaeqZl v4ylIBOpwvOoGcXkMXPr eaQyNi4kSCPstJj6rMWm ZOsgTU37cS7oJXArsXCw pW6utPNzqHM6vW5mPZFy ZCBkeXNwbGFzaWFccGFy OEBlooTTOzZnI33xn11e VYAkL25sjEFaGJBekHrf PUU6d016ZCYpcoPwM02y y18jKzCpgQGkp4Bep5m9 cSCfBYqhpk6qrJMaL45l aSgnUHUqDW3mZ1S4yOLu IGZvciBkeXNwbGFzaWEg QAKdILAwu39kCU68MHni YXJ9 [facility] Work Phone: Gross Description j2lvxFBnGXRcvSStGOPu ZFnwatEnEDYbtQHpY7Dz rnpgCSppGW9pOT2sxVji fPFzaIKtXUOqFsYte2oe n285jZRdm2pnMCNQwjyv lGp9nLceU39ph9Q2Gjhb C35qjHYfHCU0GMXoANEk nWRlIULkHQJ7YVKtxRVt G8rnCCGtJP1epqaiSMfj YNpwYZNnhMM2GUQcmZXr S0DnYODhEHowFKJyspz2 OkDnPw6dnAHseIkvYDvn AplteTpro5AlaDYgGDqs IDUxMDAwIFxcbmggXFx0 JIYxJEsnaQHlSQ4iiRso BmqnjLtqq7XlkEUxOZjh WLZzOKLkBCaoCRPoZ7LQ NUOoQtA0FPF8EAAqWJs2 AFw6GE0AKaAvERE0MRIb TnzkQtLqNCa0LAwsYM8U YGAgULM1VvO4BgQ2QGJ5 SKT8RUjvuBImWDnlh2Xw KhCeYEJdBHvsqzB4ZZPe eqRdhDgdmL8zFwTcOaFD YgXYlQBhiLKMo8tkhCla DAMvPAUptM0sWEWmq7Xs eVxwYXJccGFyZFxzYjMw TZRlpJYLn6OcDUhpGYMb RNRzdEQEe6YnVMfddCIn wxtlrgAsNNHaN1QcnyGo ITyvMDSxlp7lrVfaFLZy TMQ9i93eqHjsV9KjDM4r GFYoqurah15muPQ8fWIx dWUgYWdncmVnYXRpbmcg fM0gKN75KAcqAN0hTAik YU0wGMYuHuGJl3JvwPl7 ZOM5Dh8xxZXgNDRkjaNp vyZjR4Gll8W4yDNnq1gb oIvur3SiyFRvCS1fpEOz i6iwOKVxkYGhDIE4TJem aWQgNTEwMDIgXFxkYiBP YrDoMvA5IjZ8KRi4KoKq YEb7YTneQ6EKRUKrSFG1 SyL2LnUfGjO1GPb3FUGA Xw1dBFEhTDecHqU2RhZr MED1AVBmNHx7NDZlBGrq hfPaPBktFfhzZXqrQ24g cGFyZFxzYjEwNVxlcGlj LGHuGTN8CIKnPpXbUo9f N1JibOSpbHgyOZ22kkRx CBUHbF7lg8tyzVJaXIQk tmSgd7EkCVludVubHJRd MgBfv0YqVFaapGxbAMRh CsHtgSzfjI9qRwJpIXIV BXXcgJPgOCBxvtYas4Zc YWxpbiBhcmUgdHdvIHBp ZVHiprIcCqU3ZA3hMKHv KoOduJohx5EhJTInF4Bo Q3N8cA6gIWItTBPqMUH1 JLCiWeB4GBYqYrFvjD8b RI57IFiqmPHliXMxpRE5 FHSpdB8ap59kEPEor3Og dEDrSzanWBXjN0BkU4Qv ijM6QRTgsgrzEsbqwSsz y1FxtLGaJSpjKUWfKSVh SStgUUTlU1VEDLHuGyC5 CNZ3LYQaJIa5ZSd5EV5T QqKvLGV2CPFjTxtzZQEx EDs4SWwjUF1LWEJxZSW4 QxV3IbFxTQD0DRF6WUwg uRKnEVvsb3MxOkFgAXGo ZCyccqR8WXGiqiQby1Oq SDHzYNYeH9mdFnNfLYql ymEwMETdHZJ2p40uA2hf BSQdp1VzbIwaDJPpiGNo PTftKhAiAVPgfDMRm6Lv BJbxAJDbRSMaoCYIj9Zw MFxwbGFpblxmczIwIFJl P7MzejAuSEurZYXgfy7x oUtrSDBzEHX0q96nvXjz D6CjYE6uKELhkiedm78q vHB4sGDwoAAxWSrigaMp OFUorkdfzI8tFS57XVqn BW2nUEqvNB5xYOOkWuGL d2WtzDt4SCW3Ia0raWQp SRRpumVykqLeX5Dwx4U4 wRDqj9jneKebg5ZrwSWg PC3fcCWey5dkLAUwwZVo MZQ8VRkyuYVuINGsZRGe IIdsOeCVIeWeTmY4JtI3 LTq8MaHkBBs2CVysC7TI WWAtTHI6JjS9WKS0GiF4 PCn6FDZBPw4nIOMuHLzr HgW9IkLhVBV7SYJzBHk1 IDIgXFxzcyAzIFxcZmwg GBhkI52uaDBnZZbfVaRj BQhunFarQJMjLBP3TMJw CrCcZX7zB08sh39xVJPg d7NbpDbxALApnQRuIIri XmZdZRRsfJAFf2XqKCjr VGRnSULbyHVDj5BjQSfl sXDkbuzazkHkVZZcZ3Zb ueUgBEhaHHEiba4ldRvs OIMsZCDlgQn7vEVvVRZa sBIoZQChl7WagSWxOKCb v4U0UMDni3H3MGEfS0ae ABhucOkmEgR5ugYiJaFs bYIbOnMotWRgYpEiN72r TPPweYJaqTxlu4EnpPk5 nEMeYXnfKY6dMHKzVQUl FBC7IB51ABLcvIOxGDP3 DJ2heBbxMDE4YHloWNUe U2FjI4JdCFrqCFE6AFNv AaTkGATrJM8UDoGoUBP7 HjrwKBA5AuN6JNm6NLPQ LlQkDeGaDRLxYjl2BStf RLx8CHv4YZoRWiLpNbA1 DeJoBySqHFV1GQUcNSIn XHQgMiBcXHNzIDMgXFxm vWLbZQ8gzVrnMPYcBVFe WTC1MTGikUGRf3ZdQNTp OmJcDjYRFjNRa4bsdzwf O2jlvC0fBThzFQ4ppKWq iHLvISPohkEpl0PfQChd aTxeUAHsFgFfqJfnwD6q ZnMyMCBSZWNlaXZlZCBp gaZev0CkCBfoccWjiyYh nhNvmRqkV5Bvq0GpaMDm ZBGdx8O6RFQre0I2WYIj RZJjeAVwwkrxRX2eHYzi GI1bYVeoKB3hEHPfRjJR p1RomTp6HJV0Vn4qiIKd KSKbhqJpomQbP2Mil4W2 dGUuIFxwYXJccGFyZFxw UBEhV2FkWpYkOBFbGhcj MjAyNCAxOjExIEFNXHBh zyRRdd1thwUhcHDuiL0q uGlajzExBJCeq3SoHZLr ETQsT9dvewOoGI0vNLVo sW5dChnxLDWoJGSXgOUh aLQwINJrUvvyQ6fygvQw SM4pQWJMRSD9WQR4PIsx TOUzv2KdVHrhrAyxBMQp QlE8HZSkiIBlZNF6GP4s lKbbYENaS0JnY2HwabI6 XHBhcn0= [facility] Work Phone: Performing Lab s9rmpCOgGQUtvYLjHjYc ZDQaITPrf4nvIVYsfCPz ZzEwMzNcZnRuYmpcdWMx BKTsAaYxj6tvn850pWQx z5znKEMsNbV5bZFpEGJd uFPwB367RHQzUUkyy9xy h2HdFVIvcFWxu8D9YVAQ satyoBo1wBruW51lx0A2 KqvwX7mtWUIrDSBoP4Gu GI1iBJTkFlq6GRG8OHH3 APCiATPcY6UoJV8qQGTj oKYhWGl9t3lwtMyyKZSk MHJ2e9usYMxhkkCnDD0g bl8xnVd7h9rhehOcBRQe NKHgwGYJFAJjK1XhjVul Vy7jhOi6iKxeBwrjPLE1 Mau9UG9rve60lsh4eJhy HOFwdmrsRxN4HDbkCDQv qoxgUNg3XGckZYNhwSK7 CAFxmNKmP9FaSRcuXX0l ovw4PSL3EBelOTZmJpN0 NDBcaGVhZGVyeTcyMFxm g630OJN6WwRwZN2qH8Vw q1K4jI6jvDYyADXptWLh SpBfJYHnmy8vpLXtJZcg a4EkRBF5gwV4yTInoXSa GPGtCX25Kmosv4VuAymp m9JfI12bxBJ8LDwjf8bc BB7eQaZ7abIwDRecy2hc fA0mVbS7QNeoFT7eJM9d LHJiwG5pzffoAQAeRiNk cwboRNLonUiknqDjAo4z jIdqDLM2BEuoA6jruD1b RcE5VBzdE1dqxS8oIOc2 YRmvmAU1LJXnaM9fZB1e phwiy5ccPSkwNQddBQXn ovC6ozSdPEIzwJQrP2Es hG2aTEObPY3qhbhgi6ti QVI9ZJfjJPWiJEP1FwKk UFKhx7Jhsif8EgTzs3Vi nLWyNUxhH50ss102AIPa zyXdO2fxfEIzhdfexGZw zfnaDNuyvnT4FUJdLLTk YWluXGYxXGZzMjBcbGFu ZzEwMzNcaGljaFxmMVxk AdIwFFYkCWlgP4czKhAf HdSyLKQQxGBrth2yxQso WQtfcCSduRVsiPM7tC4p YWYsnjLccr6yVILfqADC pKE6WAzsdyHaO6zkfkkg SBA1ZJJuUEP8X8pdXVDS dmUsIENsZXZlbGFuZCBP IAB8JTX8IZNnKZESOWCl DTJ6JAD6KKTpSOYubSMh XHBhclxwYXJkXHBsYWlu DLKkZJHeKgHoiShaeE6q EqIgOyLaFBbaZH9kKAVu E2yksLZjKYSzNIZtV3sc ZzXcmX3zhKgsWIwzFrBw ZnMyMFxsdHJjaCBMYWJv dlR8e6A5GQjmzRMshdvw MVxmczIwXGxhbmcxMDMz HBzoZ0mlFoWwQEIpiHjs CNvqt3QnVMYkQASrOaOy XHwbWCX8m2F2BIcsuPPo acGSScXWRE4kjIMwezkk AG2DRgyjhUSuehylZUyr czIyXGxhbmcxMDMzXGhp V2luKlLwELVerXlfAPpp s9CvMYTjNNPnXiSjsKDi fQ== [facility] Work Phone: [facility] Work Phone: Mariya 04-27-2024 TREVIN Telephone (TEMITOPE) AURORA MONTAGUE ([id number]) 1975 F Date Time Provider Department 04/27/24 ASHLEY SHAH During your visit today, we recorded the following information about you: Dottie Kirby RN 04/27/2024 11:50 AM Signed Dottie Kirby RN 04/27/2024 11:50 AM Signed Call to [facility], spoke to Kenia. Resubmitted additional information via fax to . Dottie Kirby RN Allergies As of Date: 04/27/2024 Noted Allergy Reaction MORPHINE 07/22/2023 11 - Vomiting NSAIDS (NON-STEROIDAL ANTI-INFLAM*03/10/20 23 16 - Unknown Comments: Stomach upset , GI Issues, bleeding STEROIDS (CORTICOSTEROIDS (GLUCOC*03/10/2023 16 - Unknown Comments: PT states Bleeding Date Reviewed: 04/26/2024 Reviewed by: Maribell Becerra RN - Fully Assessed Reason for Visit: Insurance Authorization [[id number]] Cmt: ELAINE nexium Prescriptions as of 05/03/2024 - esomeprazole (NEXIUM) 40 mg capsule Take 1 capsule by mouth two times a day before meals. - sucralfate (CARAFATE) 1 gram tablet Take 1 tablet by mouth two times a day before meals. - hyoscyamine (LEVSIN) 0.125 mg tablet Take 1 tablet by mouth two times a day at 6 am and 9 pm. - buPROPion XL (WELLBUTRIN XL) 300 mg 24 hr tablet Every morning - Cetirizine 10 mg cap - clonazePAM (KLONOPIN) 0.5 mg tablet Take 1 mg by mouth every 12 hours. - famotidine (PEPCID) 10 mg tablet - sertraline (ZOLOFT) 100 mg tablet Take 100 mg by mouth every morning. - oxybutynin ER (DITROPAN XL) 15 mg 24 hr Extended Rel Tab Take 1 tablet by mouth every afternoon. Problem List As Of Date: 04/27/2024 (None) Encounter Status:Closed by DOTTIE KIRBY on 05/03/24 [facility] ANES POSTPROC EVALon 024 ANES POSTPROC EVAL HNO ID: [id number] Author: OG FARRELL APRN.POKER MANAGER Service: ? Author Type: Nurse Traveling Sales Executive Type: Anesthesia Postprocedure Evaluation Filed: 04/26/2024 11:39 Note Text: POST ANESTHESIA EVALUATION NOTE : 1975 Procedure Summary Date: 04/26/24 Room / Location: Ambulatory Surgery Anesthesia Start: 1107 Anesthesia Stop: 113 Procedures: EGD DIAGNOSTIC COLONOSCOPY DIAGNOSTIC Diagnosis: Gastroesophageal reflux disease with esophagitis without hemorrhage Nausea PUD (peptic ulcer disease) Rectal bleeding Irritable bowel syndrome with both constipation and diarrhea (Dyspepsia, Unspecified) Scheduled Providers: Ashley Shah MD; Dominique Miller RN; Nancy Rdoarte Tech; Og Farrell APRN.POKER MANAGER Responsible Provider: Og Farrell APRN.POKER MANAGER Anesthesia Type: MAC ASA Status: 3 Anesthesia Type: MAC Last Vitals Vitals Value Taken Time BP 111/72 04/26/24 1136 Temp 04/26/24 1136 Pulse 77 04/26/24 1136 Resp 20 04/26/24 1136 SpO2 100 04/26/24 1136 Post Anesthesia Patient Status Patient Evaluation: bedside. Anticipated Disposition: phase 2 then home. Neurological Status: aware and responsive. Pulmonary Status: breathing comfortably on room air Airway Control: returned to baseline unsupported. Cardiovascular Status: stable. Pain Management: clinically adequate Postoperative Hydration: acceptable. Intraoperative Events: no significant anesthesia events Post Operative Nausea/Vomiting Status: no significant post operative nausea or vomiting Recommendation: continue current plan of care. Anesthesia Observations No Documentation SIGNATURE: Og Farrell APRN.POKER MANAGER PATIENT NAME: Aurora Montague DATE: April 26, 2024 TIME: 11:36 AM CSN: [id number] Normal [facility] ANES PRE-OPon 04-26-2024 ANES PRE-OP HNO ID: [id number] Author: OG FARRELL APRN.POKER MANAGER Service: ? Author Type: Nurse Traveling Sales Executive Type: Anesthesia Preprocedure Evaluation Filed: 04/26/2024 11:05 Note Text: ANESTHESIOLOGY DAY OF SURGERY NOTE : 1975 Procedure Information Date/Time: 04/26/24 1045 Scheduled providers: Ashley Shah MD; Dominique Miller RN; Nancy Rodarte Tech; Og Farrell APRN.POKER MANAGER Procedures: EGD DIAGNOSTIC COLONOSCOPY DIAGNOSTIC Location: Ambulatory Surgery Estimated body mass index is 33.67 kg/m? as calculated from the following: Height as of this encounter: 170.2 cm (5' 7 ). Weight as of this encounter: 97.5 kg (215 lb). Most recent hematocrit and potassium results: Hematocrit 42.9 02/29/2024 Potassium 4.3 02/29/2024 Relevant Problems No relevant active problems Class I Obesity, GERD, anemia I - PHYSICAL EVALUATION AIRWAY Patient intubated: No. Tracheostomy tube not present Mallampati: I. TM distance: >3 FB. Neck ROM: full ROM without neurological symptoms. Mouth opening: adequate. Short neck: no. Thick neck: no Cuellar present: no DENTAL Dental findings: teeth intact. Dentures, upper: complete. Dentures, lower: partial. II - ANESTHESIA PLAN ASA Score: 3 Anesthetic Plan: MAC The patient is not a current smoker. NPO Status: adequate Beta Darnell Monitoring Plan Monitoring plan: standard ASA. Post Procedure Analgesic Plan Postoperative analgesic plan: per surgical service. Informed Consent Anesthetic risks, benefits, alternatives, personnel and consent discussed: yes. Patient / Responsible Constitution Party agrees to proceed: yes Patient / Surrogate agrees to blood products: blood products not planned DNR status not reviewed with patient and/or family prior to surgery. Significant changes in the patient condition since the History and Physical, not otherwise documented in primary service progress note: no. Potential Anesthesia issues that may suggest increased risk of complications or contraindication to planned procedure: none. Vitals Value Taken Time BP 113/66 04/26/24 1042 Pulse 79 04/26/24 1042 Resp Temp SpO2 96 % 04/26/24 1042 Outpatient Medications as of 04/26/2024 Medication Sig buPROPion XL (WELLBUTRIN XL) 300 mg 24 hr tablet Every morning Cetirizine 10 mg cap clonazePAM (KLONOPIN) 0.5 mg tablet Take 1 mg by mouth every 12 hours. esomeprazole (NEXIUM) 40 mg capsule 1 capsule. famotidine (PEPCID) 10 mg tablet sertraline (ZOLOFT) 100 mg tablet Take 100 mg by mouth every morning. oxybutynin ER (DITROPAN XL) 15 mg 24 hr Extended Rel Tab Take 1 tablet by mouth every afternoon. No current facility-administere d medications on file as of 04/26/2024. I have interviewed and examined the patient. I have reviewed the medical record and/or the pre-anesthesia evaluation, pertinent labs, and test results. This contains updated information obtained within 48 hours of Surgery/Procedure. SIGNATURE: Og Farrell APRN.POKER MANAGER PATIENT NAME: Aurora Montague DATE: April 26, 2024 TIME: 10:58 AM CSN: [id number] [facility] Colonoscopyon 04-26-2024 Colonoscopy [facility] Gastroenterology Gastrointestinal Endoscopy Patient Name: Aurora Montague Procedure Date: 04/26/2024 11:20 AM Date of : 1975 Admit Type: Outpatient Age: 49 Room: [facility] 2 Gender: Female Note Status: Finalized Attending MD: Ashley Shah MD, [id number] Procedure: Colonoscopy Indications: Lower abdominal pain, Rectal bleeding, Change in bowel habits Providers: Ashley Shah MD Patient Profile: This is a 49 year old female. Refer to note in patient chart for documentation of history and physical. Last Colonoscopy: none. The patient's first colonoscopy is today. Referring Physician: Ashley Shah MD (Referring MD) Medicines: Monitored Anesthesia Care Complications: No immediate complications. Requesting Provider: Procedure: Pre-Anesthesia Assessment: - Prior to the procedure, a History and Physical was performed, and patient medications and allergies were reviewed. The patient is competent. The risks and benefits of the procedure and the sedation options and risks were discussed with the patient. All questions were answered and informed consent was obtained. Patient identification and proposed procedure were verified by the physician, the nurse, the well logger and the facility technician in the procedure room. Mental Status Examination: alert and oriented. Airway Examination: normal oropharyngeal airway and neck mobility. Respiratory Examination: clear to auscultation. CV Examination: normal. Prophylactic Antibiotics: The patient does not require prophylactic antibiotics. Prior Anticoagulants: The patient has taken no anticoagulant or antiplatelet agents. ASA Grade Assessment: II - A patient with mild systemic disease. After reviewing the risks and benefits, the patient was deemed in satisfactory condition to undergo the procedure. The anesthesia plan was to use monitored anesthesia care (MAC). Immediately prior to administration of medications, the patient was re-assessed for adequacy to receive sedatives. The heart rate, respiratory rate, oxygen saturations, blood pressure, adequacy of pulmonary ventilation, and response to care were monitored throughout the procedure. The physical status of the patient was re-assessed after the procedure. After I obtained informed consent, the scope was passed under direct vision. Throughout the procedure, the patient's blood pressure, pulse, and oxygen saturations were monitored continuously. The Colonoscope was introduced through the anus and advanced to the terminal ileum. I was present and participated during the entire procedure, including non-farr portions, and during the administration and monitoring of Moderate Sedation. The colonoscopy was performed without difficulty. The patient tolerated the procedure well. The quality of the bowel preparation was good. The quality of the bowel preparation was evaluated using the BBPS ([place] Bowel Preparation Scale) with scores of: Right Colon = 2 (minor amount of residual staining, small fragments of stool and/or opaque liquid, but mucosa seen well), Transverse Colon = 2 (minor amount of residual staining, small fragments of stool and/or opaque liquid, but mucosa seen well) and Left Colon = 2 (minor amount of residual staining, small fragments of stool and/or opaque liquid, but mucosa seen well). The total BBPS score equals 6. The terminal ileum, ileocecal valve, appendiceal orifice, and rectum were photographed. Scope Withdrawal Time: 0 hours 7 minutes 58 seconds Moderate Sedation: MAC anesthesia was administered by the anesthesia team. Findings: The perianal and digital rectal examinations were normal. The terminal ileum appeared normal. A few small-mouthed diverticula were found in the sigmoid colon. Biopsies for histology were taken with a cold forceps from the entire colon for evaluation of microscopic colitis. A 4 mm polyp was found in the sigmoid colon. The polyp was sessile. The polyp was removed with a cold biopsy forceps. Resection and retrieval were complete. A 6 mm polyp was found in the rectum. The polyp was sessile. The polyp was removed with a cold snare. Resection was complete, but the polyp tissue was not retrieved. Internal hemorrhoids were found during retroflexion. The hemorrhoids were small. Impression: - The examined portion of the ileum was normal. - Diverticulosis in the sigmoid colon. Biopsied. - One 4 mm polyp in the sigmoid colon, removed with a cold biopsy forceps. Resected and retrieved. - One 6 mm polyp in the rectum, removed with a cold snare. Complete resection. Polyp tissue not retrieved. - Internal hemorrhoids. Recommendation: - Await pathology results. - High fiber diet and augmented water consumption diet. - Use Benefiber two teaspoons PO daily. - Align one capsule by mouth once a day - Use Levsin, NuLev (hyoscya (more content not included)... [facility] EGD Study observation [facility] 04-26-2024 [facility] Gastroenterology Gastrointestinal Endoscopy Patient Name: Aurora Montague Procedure Date: 04/26/2024 11:07 AM Date of : 1975 Admit Type: Outpatient Age: 49 Room: [facility] 2 Gender: Female Note Status: Finalized Attending MD: Ashley Shah MD, [id number] Procedure: Upper GI endoscopy Indications: Dyspepsia, Heartburn, Nausea with vomiting Providers: Ashley Shah MD Patient Profile: This is a 49 year old female. Refer to note in patient chart for documentation of history and physical. Referring Physician: Ashley Shah MD (Referring MD) Medicines: Monitored Anesthesia Care Complications: No immediate complications. Requesting Provider: Procedure: Pre-Anesthesia Assessment: - Prior to the procedure, a History and Physical was performed, and patient medications and allergies were reviewed. The patient is competent. The risks and benefits of the procedure and the sedation options and risks were discussed with the patient. All questions were answered and informed consent was obtained. Patient identification and proposed procedure were verified by the physician, the nurse, the well logger and the facility technician in the procedure room. Mental Status Examination: alert and oriented. Airway Examination: normal oropharyngeal airway and neck mobility. Respiratory Examination: clear to auscultation. CV Examination: normal. Prophylactic Antibiotics: The patient does not require prophylactic antibiotics. Prior Anticoagulants: The patient has taken no anticoagulant or antiplatelet agents. ASA Grade Assessment: II - A patient with mild systemic disease. After reviewing the risks and benefits, the patient was deemed in satisfactory condition to undergo the procedure. The anesthesia plan was to use monitored anesthesia care (MAC). Immediately prior to administration of medications, the patient was re-assessed for adequacy to receive sedatives. The heart rate, respiratory rate, oxygen saturations, blood pressure, adequacy of pulmonary ventilation, and response to care were monitored throughout the procedure. The physical status of the patient was re-assessed after the procedure. After obtaining informed consent, the endoscope was passed under direct vision. Throughout the procedure, the patient's blood pressure, pulse, and oxygen saturations were monitored continuously. The Endoscope was introduced through the mouth, and advanced to the second part of duodenum. I was present and participated during the entire procedure, including non-farr portions, and during the administration and monitoring of Moderate Sedation. The upper GI endoscopy was accomplished without difficulty. The patient tolerated the procedure well. Moderate Sedation: MAC anesthesia was administered by the anesthesia team. Findings: The hypopharynx was normal. LA Grade A (one or more mucosal breaks less than 5 mm, not extending between tops of 2 mucosal folds) esophagitis with no bleeding was found 38 cm from the incisors. The Z-line was regular and was found 38 cm from the incisors. Diffuse moderate inflammation characterized by congestion (edema), erosions and erythema was found in the gastric body and in the gastric antrum. Several biopsies were obtained with cold forceps for histology in the gastric antrum, as well as several biopsies in the gastric body. The cardia and gastric fundus were normal on retroflexion. Localized moderate inflammation characterized by congestion (edema), erosions and erythema was found in the duodenal bulb. Several biopsies were obtained with cold forceps for histology in the second portion of the duodenum. The exam of the duodenum was otherwise normal. Impression: - Normal hypopharynx. (more content not included)... [facility]ATION [facility] Radiology Study observation (narrative) [facility] Flexible sigmoidoscopy study on 04-26-2024 [facility] Gastroenterology Gastrointestinal Endoscopy Patient Name: Aurora Montague Procedure Date: 04/26/2024 11:20 AM Date of : 1975 Admit Type: Outpatient Age: 49 Room: [facility] 2 Gender: Female Note Status: Finalized Attending MD: Ashley Shah MD, [id number] Procedure: Colonoscopy Indications: Lower abdominal pain, Rectal bleeding, Change in bowel habits Providers: Ashley Shah MD Patient Profile: This is a 49 year old female. Refer to note in patient chart for documentation of history and physical. Last Colonoscopy: none. The patient's first colonoscopy is today. Referring Physician: Ashley Shah MD (Referring MD) Medicines: Monitored Anesthesia Care Complications: No immediate complications. Requesting Provider: Procedure: Pre-Anesthesia Assessment: - Prior to the procedure, a History and Physical was performed, and patient medications and allergies were reviewed. The patient is competent. The risks and benefits of the procedure and the sedation options and risks were discussed with the patient. All questions were answered and informed consent was obtained. Patient identification and proposed procedure were verified by the physician, the nurse, the well logger and the facility technician in the procedure room. Mental Status Examination: alert and oriented. Airway Examination: normal oropharyngeal airway and neck mobility. Respiratory Examination: clear to auscultation. CV Examination: normal. Prophylactic Antibiotics: The patient does not require prophylactic antibiotics. Prior Anticoagulants: The patient has taken no anticoagulant or antiplatelet agents. ASA Grade Assessment: II - A patient with mild systemic disease. After reviewing the risks and benefits, the patient was deemed in satisfactory condition to undergo the procedure. The anesthesia plan was to use monitored anesthesia care (MAC). Immediately prior to administration of medications, the patient was re-assessed for adequacy to receive sedatives. The heart rate, respiratory rate, oxygen saturations, blood pressure, adequacy of pulmonary ventilation, and response to care were monitored throughout the procedure. The physical status of the patient was re-assessed after the procedure. After I obtained informed consent, the scope was passed under direct vision. Throughout the procedure, the patient's blood pressure, pulse, and oxygen saturations were monitored continuously. The Colonoscope was introduced through the anus and advanced to the terminal ileum. I was present and participated during the entire procedure, including non-farr portions, and during the administration and monitoring of Moderate Sedation. The colonoscopy was performed without difficulty. The patient tolerated the procedure well. The quality of the bowel preparation was good. The quality of the bowel preparation was evaluated using the BBPS ([place] Bowel Preparation Scale) with scores of: Right Colon = 2 (minor amount of residual staining, small fragments of stool and/or opaque liquid, but mucosa seen well), Transverse Colon = 2 (minor amount of residual staining, small fragments of stool and/or opaque liquid, but mucosa seen well) and Left Colon = 2 (minor amount of residual staining, small fragments of stool and/or opaque liquid, but mucosa seen well). The total BBPS score equals 6. The terminal ileum, ileocecal valve, appendiceal orifice, and rectum were photographed. Scope Withdrawal Time: 0 hours 7 minutes 58 seconds Moderate Sedation: MAC anesthesia (more content not included)... [facility]ATION [facility] Radiology Study observation (narrative) [facility] HISTORY PHYSICALon HISTORY PHYSICAL HNO ID: [id number] Author: ASHLEY SHAH MD Service: Gastroenterology Author Type: Physician Type: H&P Filed: 04/26/2024 11:02 Note Text: SEDATION HISTORY AND PHYSICAL EXAM SERVICE DATE: 04/26/2024 SERVICE TIME: 11:01 AM Subjective HPI: This is a 49 year old female who presents with GERD, PUD, rectal bleeding, abd pain PAST ANESTHESIA HISTORY: No history of adverse event History reviewed. No pertinent past medical history. PAST SURGICAL HISTORY Procedure Laterality Date BACK SURGERY HX velma c4-c7 decompression and fusion COLONOSCOPY SCREENING EGD DIAGNOSTIC VAGINAL HYSTERECTOMY partial hysterectomy Prior to Admission medications as of 04/26/24 1036 Medication Sig Last Dose Taking buPROPion XL (WELLBUTRIN XL) 300 mg 24 hr tablet Every morning Yes Cetirizine 10 mg cap Yes clonazePAM (KLONOPIN) 0.5 mg tablet Take 1 mg by mouth every 12 hours. Yes esomeprazole (NEXIUM) 40 mg capsule 1 capsule. Yes famotidine (PEPCID) 10 mg tablet Yes sertraline (ZOLOFT) 100 mg tablet Take 100 mg by mouth every morning. Yes oxybutynin ER (DITROPAN XL) 15 mg 24 hr Extended Rel Tab Take 1 tablet by mouth every afternoon. Yes ALLERGIES Allergen Reactions Morphine Vomiting Nsaids (Non-Steroid* Unknown Stomach upset , GI Issues, bleeding Steroids [Corticost* Unknown PT states Bleeding Objective PHYSICAL EXAM: The remainder of the physical exam is noncontributory. AIRWAY: Airway Visualization of Uvula: Yes Mouth opening greater than 2 fingerbreadths: Yes Neck Full Range of Motion: Yes LUNGS: Lungs clear to auscultation CARDIAC: Regular rhythm,Regular rate Assessment/Plan ASA Class: ASA Class:: Patient with mild systemic disease Active Problems: GERD, PUD, rectal bleeding, abd pain Provisional Diagnosis/Treatment Plan: EGD Colonoscopy Procedure was discussed with the patient including risks of oversedation, bleeding, and perforation. Patient agreed to proceed. SEDATION GOAL: Anesthesia SIGNATURE: Ashley Shah MD PATIENT NAME: Aurora Montague DATE: April 26, 2024 TIME: 11:01 AM [facility] NURSING PROGon 04-26-2024 NURSING PROG HNO ID: [id number] Author: MARIBELL BECERRA RN Service: ? Author Type: Registered Nurse Type: Nursing Progress Note Filed: 04/26/2024 11:42 Note Text: POST OP LEARNING RESPONSE INSTRUCTION PROVIDED TO: Patient and family member METHOD OF INSTRUCTION: Individual instruction Written instruction/Handouts Verbal instruction PATIENT / FAMILY RESPONSE: Information received as demonstrated by interest and questions FOLLOW-UP PLAN: Recommend - Recommend continued instruction and follow up as directed SUPPLEMENTAL MATERIAL: Post op discharge instructions Post sedation instructions given REFERRAL (RECOMMENDATION): None Electronically Signed By: Maribell Becerra RN In Department: AMBULATORY SURGERY [facility] NURSING PROG HNO ID: [id number] Author: TRACIE WILLAMS RN Service: ? Author Type: Registered Nurse Type: Nursing Progress Note Filed: 04/26/2024 10:46 Note Text: PRE OP LEARNING ASSESSMENT PROCEDURE/SURGERY: GI PROCEDURES: Colonoscopy and EGD READINESS TO LEARN COGNITIVE ABILITY: Alert and oriented MOTIVATION TO LEARN: Interested FAMILY SUPPORT: High - Very involved in pt care PATIENT LEARNS BEST BY: Individual Instruction Written Instruction - Hand-outs Verbal Instruction FACTORS AFFECTING LEARNING: None PHYSICAL LIMITATIONS AFFECTING LEARNING: None Electronically Signed By: Tracie Willams RN In Department: AMBULATORY SURGERY [facility] SURGICAL PATHOLOGYon 024 CASE REPORT [facility] Comment on above: Order Comment: Speci zen Type: BLOOD SPECIMEN Ordering Facility: [facility] Address: [address] [place] [address] Result Comment: Surg ical Pathology Report Case: [id number] Authorizing Provider: Ashley Shah MD Collected: 04/26/2024 11:12 AM Ordering Location: Ambulatory Surgery Received: 04/26/2024 11:32 PM Pathologist: Dalila Logan MD Specimens: A) - Small Bowel, Duodenum, Biopsy, r/o celiac B) - Stomach, Antrum, Biopsy, r/o hpylori C) - Stomach, Biopsy, body r/o hpylori D) - Colon, Biopsy, random colon r/o microscopic colitis E) - Colon, Sigmoid, Polyp, polyp x1 Performed By: #### ARIANA ANDREA #### [facility] CLIA [id number] [address] [place] [address] [place] DIAGNOSIS COMMENT [facility] Comment on above: Order Comment: Jay zaldivar Type: BLOOD SPECIMEN Ordering Facility: [facility] Address: [address] [place] [address] Result Comment: [facility] iple step-level H&E sections were examined on part E. Performed By: #### ARIANA ANDREA #### [facility] CLIA [id number] [address] [place] [address] [place] FINAL DIAGNOSIS [facility] Comment on above: Order Comment: Jay zaldivar Type: BLOOD SPECIMEN Ordering Facility: [facility] Address: [address] [place] [address] Result Comment: A. S mall intestine, duodenum, biopsy -Duodenal mucosa with no significant pathologic abnormality -Negative for duodenitis and celiac disease B. Stomach, antrum, biopsy -Gastric antral mucosa with reactive gastropathy -No histomorphologic evidence of Helicobacter organisms C. Stomach, body, biopsy -Gastric oxyntic mucosa with no significant pathologic abnormality -No histomorphologic evidence of Helicobacter organisms D. Colon, random, biopsy -Colonic mucosa with melanosis coli -Negative for colitis, granulomatous inflammation and dysplasia E. Colon, sigmoid, polypectomy -Colonic mucosa with melanosis coli -Negative for dysplasia (see comment) Performed By: #### G ARIANA KLEIN #### [facility] CLIA [id number] [address] [place] [address] [place] FINAL PERFORMING LAB Normal [facility] Comment on above: Order Comment: Speci men Type: BLOOD SPECIMEN Ordering Facility: [facility] Address: [address] [place] [address] Result Comment: Diag nostic interpretation performed at [facility], [address] [place] [address] CLIA# [id number] Rice Drier: Gian Martinez M.D. Performed By: #### G ARIANA KLEIN #### [facility] CLIA [id number] [address] [place] [address] [place] GROSS DESCRIPTION [facility] Comment on above: Order Comment: Speci men Type: BLOOD SPECIMEN Ordering Facility: [facility] Address: [address] [place] [address] Result Comment: A. S mall Bowel, Duodenum, Biopsy Received in formalin are two pieces of hinton, soft tissue aggregating to 0.8 x 0.2 x 0.2 cm. Totally submitted in one cassette. B. Stomach, Antrum, Biopsy Received in formalin are two pieces of hinton, soft tissue aggregating to 0.8 x 0.2 x 0.2 cm. Totally submitted in one cassette. C. Stomach, Biopsy Received in formalin are two pieces of hinton, soft tissue aggregating to 0.8 x 0.2 x 0.2 cm. Totally submitted in one cassette. D. Colon, Biopsy Received in formalin are multiple pieces of hinton, soft tissue aggregating to 2.2 x 0.2 x 0.2 cm. Totally submitted in one cassette. E. Colon, Sigmoid, Polyp Received in formalin is one piece of hinton, soft tissue measuring 0.2 x 0.2 x 0.1 cm. Totally submitted in one cassette. April 27, 2024 1:11 [place] [address] Performed By: #### G ARIANA KLEIN #### [facility] CLIA [id number] [address] [place] [address] [place] Upper GI endoscopyon 04-26- 024 Upper GI endoscopy [facility] Gastroenterology Gastrointestinal Endoscopy Patient Name: Aurora Montague Procedure Date: 04/26/2024 11:07 AM Date of : 1975 Admit Type: Outpatient Age: 49 Room: [facility] 2 Gender: Female Note Status: Finalized Attending MD: Ashley Shah MD, [id number] Procedure: Upper GI endoscopy Indications: Dyspepsia, Heartburn, Nausea with vomiting Providers: Ashley Shah MD Patient Profile: This is a 49 year old female. Refer to note in patient chart for documentation of history and physical. Referring Physician: Ashley Shah MD (Referring MD) Medicines: Monitored Anesthesia Care Complications: No immediate complications. Requesting Provider: Procedure: Pre-Anesthesia Assessment: - Prior to the procedure, a History and Physical was performed, and patient medications and allergies were reviewed. The patient is competent. The risks and benefits of the procedure and the sedation options and risks were discussed with the patient. All questions were answered and informed consent was obtained. Patient identification and proposed procedure were verified by the physician, the nurse, the well logger and the facility technician in the procedure room. Mental Status Examination: alert and oriented. Airway Examination: normal oropharyngeal airway and neck mobility. Respiratory Examination: clear to auscultation. CV Examination: normal. Prophylactic Antibiotics: The patient does not require prophylactic antibiotics. Prior Anticoagulants: The patient has taken no anticoagulant or antiplatelet agents. ASA Grade Assessment: II - A patient with mild systemic disease. After reviewing the risks and benefits, the patient was deemed in satisfactory condition to undergo the procedure. The anesthesia plan was to use monitored anesthesia care (MAC). Immediately prior to administration of medications, the patient was re-assessed for adequacy to receive sedatives. The heart rate, respiratory rate, oxygen saturations, blood pressure, adequacy of pulmonary ventilation, and response to care were monitored throughout the procedure. The physical status of the patient was re-assessed after the procedure. After obtaining informed consent, the endoscope was passed under direct vision. Throughout the procedure, the patient's blood pressure, pulse, and oxygen saturations were monitored continuously. The Endoscope was introduced through the mouth, and advanced to the second part of duodenum. I was present and participated during the entire procedure, including non-farr portions, and during the administration and monitoring of Moderate Sedation. The upper GI endoscopy was accomplished without difficulty. The patient tolerated the procedure well. Moderate Sedation: MAC anesthesia was administered by the anesthesia team. Findings: The hypopharynx was normal. LA Grade A (one or more mucosal breaks less than 5 mm, not extending between tops of 2 mucosal folds) esophagitis with no bleeding was found 38 cm from the incisors. The Z-line was regular and was found 38 cm from the incisors. Diffuse moderate inflammation characterized by congestion (edema), erosions and erythema was found in the gastric body and in the gastric antrum. Several biopsies were obtained with cold forceps for histology in the gastric antrum, as well as several biopsies in the gastric body. The cardia and gastric fundus were normal on retroflexion. Localized moderate inflammation characterized by congestion (edema), erosions and erythema was found in the duodenal bulb. Several biopsies were obtained with cold forceps for histology in the second portion of the duodenum. The exam of the duodenum was otherwise normal. Impression: - Normal hypopharynx. - LA Grade A reflux esophagitis with no bleeding. - Z-line regular, 38 cm from the incisors. - Gastritis. - Duodenitis. - Biopsies performed in the gastric antrum and in the gastric body. - Biopsies performed in the second portion of the duodenum. Recommendation: - Await pathology results. - Use Nexium (esomeprazole) 40 mg PO BID for 8 weeks then back to once a day - Use sucralfate tablets 1 gram PO BID for 4 weeks. - Follow an antireflux regimen. - Refer to general surgery to discuss thea if symptoms persists - Perform a colonoscopy today. Procedure Code(s): --- Professional --- 82080, Esophagogastroduoden oscopy, flexible, transoral; with biopsy, single or multiple Diagnosis Code(s): --- Professional --- K21.00, Gastro-esophageal reflux disease with esophagitis, without bleeding K29.70, Gastritis, unspecified, without bleeding K29.80, Duodenitis without bleeding R10.13, Epigastric pain R12, Heartburn R11.2, Nausea with vomiting, unspecified CPT copyright 2020 [employer]. All rights reserved. The codes documented in this report are prelimina (more content not included)... [facility] CT ABD/PEL W IVCONon 024 CT ABD/PEL W IVCON * * *Final Report* * * DATE OF EXAM: Mar 21 2024 8:39AM [facility] 0530 - CT ABD/PEL W IVCON / PROCEDURE REASON: multiple diagnoses * * * * Physician Interpretation * * * * RESULT: EXAMINATION: CT ABDOMEN AND PELVIS WITH IV CONTRAST CLINICAL HISTORY: Chronic abdominal pain, nausea. TECHNIQUE: CT of the abdomen and pelvis was performed using standard technique, scanning from just above the dome of the diaphragm to the symphysis pubis. MQ: CTAP_3 Contrast: IV: 100 ml of Omnipaque 350 Oral: 450 ml of Omni 240 10-25ml diluted with water CT Radiation dose: Integrated Dose-length product (DLP) for this visit = 857 mGy*cm. CT Dose Reduction Employed: Automated exposure control (AEC) COMPARISON: None. RESULT: Liver: No mass. Biliary: No bile duct dilation. Cholelithiasis. The gallbladder is otherwise unremarkable. Spleen: No mass. No splenomegaly. Pancreas: No mass or duct dilation. Adrenals: No mass. Kidneys: Unremarkable. No mass or collecting system dilation. GI tract: No dilation or wall thickening. A normal appendix is visualized. Lymph nodes: No abdominal or pelvic lymphadenopathy. Mesentery/Peritoneum : No ascites or mass. Retroperitoneum: No mass. Vasculature: - Abdominal aorta and iliac arteries: Mild calcified atherosclerotic disease, no aneurysm - Celiac and SMA: Patent without stenosis. - Portal venous system (SMV, splenic vein, portal vein and branches): Patent. - Hepatic veins: Patent. Pelvis: No mass, ascites or fluid collection. Surgically absent uterus. Bones/Soft Tissues: Mild to moderate multilevel lower lumbar spine degenerative disease noted. No destructive skeletal lesion is present. Within the lower anterior midline abdominal wall, there is a small 1.7 x 1.1 cm cyst versus fluid collection within the subcutaneous fat abutting the rectus musculature, see series 3 image 144. This is favored to represent a small postoperative seroma. Lower thorax: No acute finding Localizer images: No additional findings. IMPRESSION: 1. No acute inflammatory process identified in the abdomen/pelvis. 2. Cholelithiasis. The gallbladder is otherwise unremarkable. 3. Surgically absent uterus. In this setting a small 1.7 x 1.1 cm cystic structure within the lower anterior abdominal wall likely represents a small postoperative seroma. Transcribe Date/Time: Mar 21 2024 10:41A Dictated by: SKY MCKEON MD This examination was interpreted and the report reviewed and electronically signed by: SKY MCKEON MD on Mar 21 2024 10:51AM EST Thank you for allowing us to participate in the care of your patient. Should there be any questions regarding this interpretation, please call [phone]. If you are unable to reach us at the number above, please feel free to contact [facility] eRadiology at [phone]. [id number] CN [facility] CT Abdomen and Pelvis W cont rast Delgado 03-21-2024 IMPRESSION: 1. No acute inflammatory process identified in the abdomen/pelvis. 2. Cholelithiasis. The gallbladder is otherwise unremarkable. 3. Surgically absent uterus. In this setting a small 1.7 x 1.1 cm cystic structure within the lower anterior abdominal wall likely represents a small postoperative seroma. Transcribe Date/Time: Mar 21 2024 10:41A Dictated by: SKY MCKEON MD This examination was interpreted and the report reviewed and electronically signed by: SKY MCKEON MD on Mar 21 2024 10:51AM EST Thank you for allowing us to participate in the care of your patient. Should there be any questions regarding this interpretation, please call [phone]. If you are unable to reach us at the number above, please feel free to [facility] at [phone]. DIVISION OF RADIOLOGY * * *Final Report* * * DATE OF EXAM: Mar 21 2024 8:39AM [facility] 0530 - CT ABD/PEL W IVCON / PROCEDURE REASON: multiple diagnoses * * * * Physician Interpretation * * * * RESULT: EXAMINATION: CT ABDOMEN AND PELVIS WITH IV CONTRAST CLINICAL HISTORY: Chronic abdominal pain, nausea. TECHNIQUE: CT of the abdomen and pelvis was performed using standard technique, scanning from just above the dome of the diaphragm to the symphysis pubis. MQ: CTAP_3 Contrast: IV: 100 ml of Omnipaque 350 Oral: 450 ml of Omni 240 10-25ml diluted with water CT Radiation dose: Integrated Dose-length product (DLP) for this visit = 857 mGy*cm. CT Dose Reduction Employed: Automated exposure control (AEC) COMPARISON: None. RESULT: Liver: No mass. Biliary: No bile duct dilation. Cholelithiasis. The gallbladder is otherwise unremarkable. Spleen: No mass. No splenomegaly. Pancreas: No mass or duct dilation. Adrenals: No mass. Kidneys: Unremarkable. No mass or collecting system dilation. GI tract: No dilation or wall thickening. A normal appendix is visualized. Lymph nodes: No abdominal or pelvic lymphadenopathy. Mesentery/Peritoneum : No ascites or mass. Retroperitoneum: No mass. Vasculature: - Abdominal aorta and iliac arteries: Mild calcified atherosclerotic disease, no aneurysm - Celiac and SMA: Patent without stenosis. - Portal venous system (SMV, splenic vein, portal vein and branches): Patent. - Hepatic veins: Patent. Pelvis: No mass, ascites or fluid collection. Surgically absent uterus. Bones/Soft Tissues: Mild to moderate multilevel lower lumbar spine degenerative disease noted. No destructive skeletal lesion is present. Within the lower anterior midline abdominal wall, there is a small 1.7 x 1.1 cm cyst versus fluid collection within the subcutaneous fat abutting the rectus musculature, see series 3 image 144. This is favored to represent a small postoperative seroma. Lower thorax: No acute finding Localizer images: No additional findings. DIVISION OF RADIOLOGY Provider, [facility] - 03/21/2024 * * *Final Report* * * DATE OF EXAM: Mar 21 2024 8:39AM [facility] 0530 - CT ABD/PEL W IVCON / PROCEDURE REASON: multiple diagnoses * * * * Physician Interpretation * * * * RESULT: EXAMINATION: CT ABDOMEN AND PELVIS WITH IV CONTRAST CLINICAL HISTORY: Chronic abdominal pain, nausea. TECHNIQUE: CT of the abdomen and pelvis was performed using standard technique, scanning from just above the dome of the diaphragm to the symphysis pubis. MQ: CTAP_3 Contrast: IV: 100 ml of Omnipaque 350 Oral: 450 ml of Omni 240 10-25ml diluted with water CT Radiation dose: Integrated Dose-length product (DLP) for this visit = 857 mGy*cm. CT Dose Reduction Employed: Automated exposure control (AEC) COMPARISON: None. RESULT: Liver: No mass. Biliary: No bile duct dilation. Cholelithiasis. The gallbladder is otherwise unremarkable. Spleen: No mass. No splenomegaly. Pancreas: No mass or duct dilation. Adrenals: No mass. Kidneys: Unremarkable. No mass or collecting system dilation. GI tract: No dilation or wall thickening. A normal appendix is visualized. Lymph nodes: No abdominal or pelvic lymphadenopathy. Mesentery/Peritoneum : No ascites or mass. Retroperitoneum: No mass. Vasculature: - Abdominal aorta and iliac arteries: Mild calcified atherosclerotic disease, no aneurysm - Celiac and SMA: Patent without stenosis. - Portal venous system (SMV, splenic vein, portal vein and branches): Patent. - Hepatic veins: Patent. Pelvis: No mass, ascites or fluid collection. Surgically absent uterus. Bones/Soft Tissues: Mild to moderate multilevel lower lumbar spine degenerative disease noted. No destructive skeletal lesion is present. Within the lower anterior midline abdominal wall, there is a small 1.7 x 1.1 cm cyst versus fluid collection within the subcutaneous fat abutting the rectus musculature, see series 3 image 144. This is favored to represent a small postoperative seroma. Lower thorax: No acute finding Localizer images: No additional findings. IMPRESSION IMPRESSION: 1. No acute inflammatory process identified in the abdomen/pelvis. 2. Cholelithiasis. The gallbladder is otherwise unremarkable. 3. Surgically absent uterus. In this setting a small 1.7 x 1.1 cm cystic structure within the lower anterior abdominal wall likely represents a small postoperative seroma. Transcribe Date/Time: Mar 21 2024 10:41A Dictated by: SKY MCKEON MD This examination was interpreted and the report reviewed and electronically signed by: SKY MCKEON MD on Mar 21 2024 10:51AM EST Thank you for allowing us to participate in the care of your patient. Should there be any questions regarding this interpretation, please call [phone]. If you are unable to reach us at the number above, please feel free to contact [facility]Radiology at [phone]. [facility] Radiology Study observation (narrative) [facility] CT Abdomen and Pelvis W cont rast IVOrdered By: [facility] Provider on 03-21-2024 [facility] [id number] 03-18-2024 [id number] HNO ID: [id number] Author: DUNIA ARANDA PT, SHAILA Service: ? Author Type: Physical Therapist Type: [id number] Filed: 03/18/2024 15:15 Note Text: [facility] Rehabilitation [facility] Sports Therapy Physical Therapy Plan of Care Certification Patient Name: Aurora Montague : 1975 [facility] #: [id number] Date: 03/18/2024 To: Rakesh Thompson PA-C From Therapist: Dunia Aranda PT, DPT RE: Patient Certification/ Recertification Your review, approval and electronic signature are required in order to comply with Payor: [facility] MEDICAID / Plan: [facility] MEDICAID / Product Type: Medicaid / regulations. The identified Physical Therapy PLAN OF CARE for the patient is as follows: Z98.1 S/P cervical spinal fusion R29.898 Left arm weakness M54.2 Neck pain R20.0, R20.2 Numbness and tingling in both hands M79.641, M79.642 Pain in both hands PLAN OF CARE: Assessment: Aurora Montague presents with chief complaint of neck pain that interferes with physical activities, reaching overhead, working, lifting, recreational activities, gripping . She presents with impairments in ADL's, overall function, posture, strength, and tissue tenderness. PROMIS? (Patient-Reported Outcomes Measurement Information System) scores were reviewed and identified as a rehabilitation concern. Prognosis for therapy is Fair due to: clinical presentation, chronic nature of impairments . She will benefit from skilled therapy services to meet the goals established for this plan of care as noted below. Patient's symptoms are predicted to improve appropriately with physical therapy. Pt presents with personal factors/comorbiditie s that may affect expected progress. Patient demonstrates moderate disability/functiona l limitations based on functional outcome measure score. Evaluation required moderate decision making skills. Goals for Episode of Care: created on 03/18/24 through 05/13/24 Pt will exhibit proper posturing and scapular retraction throughout session to aid in postural awareness and optimal mechanics through functional tasks of daily living. [place] in home exercise program. Patient will decrease pain to 1/10 with functional activities to allow patient to improve tolerance through ADLs. Restore pain free cervical ROM to WNL to allow for improved tolerance through ADLs. Patient Goals: to reduce pain Planned Interventions, Frequency, and Duration: Current Frequency: 1x/week Duration: 8 weeks Total Number of Visits Planned: 8 Planned Treatment Interventions: Therapeutic exercise (87941), Neuromuscular re-education (52684), Manual therapy (58514), Therapeutic activities (62147), Self-halfway management (38975), Patient/Family/Careg iver Education, Body Mechanics Training PLAN FOR NEXT VISIT: Continue addressing cervical mobility and postural strengthening as tolerated. Patient demonstrates good understanding of plan of care and treatment. The above goals and plan of care were discussed and agreed upon by patient/family. For further details regarding this patient refer to the Physical Therapy electronically documented visit dated 03/18/2024. Provider Attestation I have reviewed the treatment plan for Aurora Montague CC# [id number] for the period of 03/18/24 -- 05/17/24, established on 03/18/2024. Signature certifies the need for therapy services. [facility] CNTHERAPYon 03-18-2024 CNTHERAPY OT/PT/Speech Visit (LOPTRM) AURORA MONTAGUE ([id number]) 1975 F Date Time Provider Department 03/18/24 2:00 PM DUNIA ARANDA LOPTRM Date Time Provider Department Center 03/18/2024 2:00 PM [id number]-OGPDZOLYDUNIA ARANDA Reason for Visit: PT Eval [747] Patient Education [91] Visit Diagnoses:S/P cervical spinal fusion [Z98.1] Left arm weakness [R29.898] Neck pain [M54.2] Numbness and tingling in both hands [R20.0, R20.2] Pain in both hands [M79.641, M79.642] Allergies As of Date: 03/18/2024 Noted Allergy Reaction NSAIDS (NON-STEROIDAL ANTI-INFLAM*03/10/20 23 16 - Unknown Comments: Stomach upset , GI Issues, bleeding STEROIDS (CORTICOSTEROIDS (GLUCOC*03/10/2023 16 - Unknown Comments: PT states Bleeding Date Reviewed: 03/11/2024 Reviewed by: Rakesh Thompson PA-C - Fully Assessed Prescriptions as of 05/30/2024 - esomeprazole (NEXIUM) 40 mg capsule Take 1 capsule by mouth two times a day before meals. - hyoscyamine (LEVSIN) 0.125 mg tablet Take 1 tablet by mouth two times a day at 6 am and 9 pm. - buPROPion XL (WELLBUTRIN XL) 300 mg 24 hr tablet Every morning - Cetirizine 10 mg cap - clonazePAM (KLONOPIN) 0.5 mg tablet Take 1 mg by mouth every 12 hours. - famotidine (PEPCID) 10 mg tablet - sertraline (ZOLOFT) 100 mg tablet Take 100 mg by mouth every morning. - oxybutynin ER (DITROPAN XL) 15 mg 24 hr Extended Rel Tab Take 1 tablet by mouth every afternoon. [employer] Etcher: Therapy (PT/OT/Speech/Resp) ID: [id number] 03/18/2024 2:40 PM Author: DUNIA ARANDA Signed by DUNIA ARANDA PT, DPT on 03/18/2024 at 2:40 PM Document text: Program_ID:[id number] Access Code: [email or web address] URL: [email or web address] Date: 03-18-2024 Prepared By: Dunia Aranda Program Notes Exercises - Scapular Retraction with Resistance - 1 x daily - 7 x weekly - 2 sets - 15 reps - Scapular Retraction with Resistance Advanced - 1 x daily - 7 x weekly - 2 sets - 15 reps - Standing Shoulder Horizontal Abduction with Resistance - 1 x daily - 7 x weekly - 2 sets - 15 reps -------- [facility] THERAPY NTon 03-18-2024 THERAPY NT HNO ID: [id number] Author: DUNIA ARANDA, PT, DPT Service: ? Author Type: Physical Therapist Type: Therapy (PT/OT/Speech/Resp) Filed: 03/18/2024 14:40 Note Text: Program_ID:[id number] Access Code: [email or web address] URL: [email or web address] Date: 03-18-2024 Prepared By: Dunia Aranda Program Notes Exercises - Scapular Retraction with Resistance - 1 x daily - 7 x weekly - 2 sets - 15 reps - Scapular Retraction with Resistance Advanced - 1 x daily - 7 x weekly - 2 sets - 15 reps - Standing Shoulder Horizontal Abduction with Resistance - 1 x daily - 7 x weekly - 2 sets - 15 reps [facility] CNOVon 03-11-2024 CNOV Office Visit (SPMIND) AURORA MONTAGUE ([id number]) 1975 F Date Time Provider Department 03/11/24 11:15 AM RAKESH THOMPSON During your visit today, we recorded the following information about you: Pulse Blood pressure Weight Height 71/minute 129/68 97.5 kg 1.702 m Rakesh Thompson PA-C 03/11/2024 3:24 PM Signed [facility] Low back pain - chronic follow up Exam SUBJECTIVE HISTORY OF PRESENT ILLNESS: Aurora Montague is a 48 year old female who presents with a chief complaint of low back and leg pain. Here today for evaluation of her low back pain. Pain is located in midline to bilateral low back. Duration: 20+ years Radiates to: right lateral hip to right lateral thigh to knee. Pain in Right > left groin radiating to medial thigh. Intermittent pain in bilateral posterior lower legs with walking on treadmill for 30 min. Burning and heavy sensation throughout both legs with going up stairs. Intermittent pain at the ankles. Sometimes with walking she feels like the right leg gives out at the hip or thigh. Sometimes she notices that she walks on the lateral part of her feet. Numbness/tingling: bilateral feet - comes and goes. No progressive leg weakness. Urinary leakage with coughing/sneezing. Otherwise normal sensation and bale to use the restroom ok. Seen by GI 02/29/24 for generalized abdominal pain since age 19. CT abd/pel w contrast ordered as well as EGD and colonoscopy. Interventions: Medications: Wellbutrin (300mg qAM), Zoloft (100mg qAM), Klonopin (1mg BID) -Previously tried: [place], robaxin, diclofenac 75mg BID ,medrol dose pack (11/27/22), prednisone (01/26/23), naproxen - GI bleed/ulcer -tylenol - no relief -topicals - no relief -stopped NSAIDs due to GI issues Physical therapy: -scheduled to start PT for neck pain 03/18/24 -completed 4 weeks December 2022 for neck - caused more pain -PT for low back was 2021 at [facility] Previous spine injection history: none - states nervous of injections Previous spine surgery: -11/18/2016 : Anterior cervical C4/5, C5/6, C6/7 discectomy, C5, C6 corpectomy and fusion with iliac strut graft and Invizia plate with Dr. Harvey at [facility] Office visit 02/19/24: Pain is currently 2/10. Will increase to 6/10 at its worst (neck). She was last seen 03/10/23 for neck and arm symptoms. Has since completed CT, MRI and EMG. In May she stretched one day and her left shoulder popped and her pain improved. The pain radiating pain she had into the left arm is now better. Burning in posterior neck. Stiffness. Constant. Radiates to: bilateral shoulder blades - comes and goes. Tension headaches from back of the head and sometimes the entire head. Burning pain around the left elbow. Intermittent spasms in the left arm or sides. Sharp, nerve pain in bilateral hands and all the fingers. Comes and goes. Difficulty with right hand - drops things at times. Some dexterity issues. States this has gotten a little worse in the right hand. Still weakness in the left tricep. Unchanged. She feels off balance - mildly increased over time. Numbness/tingling: all the fingers. Comes and goes. She has intermittent numbness across the bilateral upper and lower jaw which started around June 2022. Urinary leakage with coughing/sneezing. Otherwise normal sensation and bale to use the restroom ok. Has been having abdominal pain - sees GI 02/28. Wanting to establish with a new PCP. Nicotine use: quit smoking March 23 Office visit 03/10/23: History of Anterior cervical C4/5, C5/6, C6/7 discectomy, C5, C6 corpectomy and fusion on 11/18/16 at [facility]. Prior to surgery she had severe pain in the neck to both shoulders. - pain improved after surgery. After surgery she developed weakness in the left arm. 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 The medial antebrachial nerve also could not be obtained. . MRI cervical, CT cervical and MRI left brachial plexus were also completed at that time. This weakness after surgery did improve some with time but not completely. She is here for another opinion on her symptoms and for new weakness in the left arm. Currently she has burning pain in posterior neck. Comes and goes but mostly constant. Intermittent shooting pain in right side of the neck - base of the skull. Pain throughout the left upper arm to posterior forearm to 2-4 fingers and sometimes thumb. Not sure about 5th digit. Intermittent numbness and tingling in all the left fingers. If she uses the left arm she gets muscle spasm in the left tricep and sometimes down her left side. Occasional twinge of pain in the right arm. Sometimes cramping and locking in the either hand. Started before surgery. Pain in b (more content not included)... [facility] CBC W Auto Differential pane l (Bld)on 02-29-2024 Basophils (Bld) [#/Vol] 0.03 10*3/uL [facility] Basophils/100 WBC (Bld) 0.4 % [facility] Differential cell count method Nom (Bld) Auto [facility] Eosinophils (Bld) [#/Vol] 0.06 10*3/uL [facility] Eosinophils/100 WBC (Bld) 0.8 % [facility] Erythrocyte distribution width (RBC) [Ratio] 12.9 % 11.5 - 15.0 % [facility] Hematocrit (Bld) [Volume fraction] 42.9 % 36.0 - 46.0 % [facility] Hemoglobin (Bld) [Mass/Vol] 14.6 g/dL 11.5 - 15.5 g/dL [facility] Immature granulocytes (Bld) [#/Vol] [facility] Immature granulocytes/100 WBC (Bld) 0.1 % [facility] Lymphocytes (Bld) [#/Vol] 2.44 10*3/uL [facility] Lymphocytes/100 WBC (Bld) 34.0 % [facility] MCH (RBC) [Entitic mass] 32.4 pg 26.0 - 34.0 pg [facility] MCHC (RBC) [Mass/Vol] 34.0 g/dL 30.5 - 36.0 g/dL [facility] MCV (RBC) [Entitic vol] 95.1 fL 80.0 - 100.0 fL [facility] Monocytes (Bld) [#/Vol] 0.50 10*3/uL [facility] Monocytes/100 WBC (Bld) 7.0 % [facility] Neutrophils (Bld) [#/Vol] 4.13 10*3/uL [facility] Neutrophils/100 WBC (Bld) 57.7 % [facility] Nucleated RBC (Bld) [#/Vol] NINF [facility] Nucleated RBC/100 WBC (Bld) [Ratio] 0.0 % /100 WBC [facility] Platelet mean volume (Bld) [Entitic vol] 10.8 fL 9.0 - 12.7 fL [facility] Platelets (Bld) [#/Vol] 253 10*3/uL [facility] RBC (Bld) [#/Vol] 4.51 10*6/uL 3.90 - 5.2 0 m/uL [facility] WBC (Bld) [#/Vol] 7.17 10*3/uL [facility] Basophils (Bld) [#/Vol] 0.03 10*3/uL Normal <0.11 [facility] Comment on above: Order Comment: Speci men Type: BLOOD SPECIMEN Ordering Facility: [facility] Address: [address] [place] [address] Performed By: #### 5 7021-8 #### [facility] CLIA [id number] [address] [place] [address] [place] Basophils/100 WBC (Bld) 0.4 % [facility] Comment on above: Order Comment: Speci men Type: BLOOD SPECIMEN Ordering Facility: [facility] Address: [address] [place] [address] Performed By: #### 5 7021-8 #### [facility] CLIA [id number] [address] [place] [address] [place] Differential cell count method Nom (Bld) Auto [facility] Comment on above: Order Comment: Speci men Type: BLOOD SPECIMEN Ordering Facility: [facility] Address: [address] [place] [address] Performed By: #### 5 7021-8 #### [facility] CLIA [id number] [address] [place] [address] [place] Eosinophils (Bld) [#/Vol] 0.06 10*3/uL Normal <0.46 [facility] Comment on above: Order Comment: Speci men Type: BLOOD SPECIMEN Ordering Facility: [facility] Address: [address] [place] [address] Performed By: #### 5 7021-8 #### [facility] CLIA [id number] [address] [place] [address] [place] Eosinophils/100 WBC (Bld) 0.8 % Normal [facility] Comment on above: Order Comment: Speci men Type: BLOOD SPECIMEN Ordering Facility: [facility] Address: [address] [place] [address] Performed By: #### 5 7021-8 #### [facility] CLIA [id number] [address] [place] [address] [place] Erythrocyte distribution width (RBC) [Ratio] 12.9 % Normal 11.5-15.0 [facility] Comment on above: Order Comment: Speci men Type: BLOOD SPECIMEN Ordering Facility: [facility] Address: [address] [place] [address] Performed By: #### 5 7021-8 #### [facility] CLIA [id number] [address] [place] [address] [place] Hematocrit (Bld) [Volume fraction] 42.9 % Normal 36.0-46.0 [facility] Comment on above: Order Comment: Speci men Type: BLOOD SPECIMEN Ordering Facility: [facility] Address: [address] [place] [address] Performed By: #### 5 7021-8 #### [facility] CLIA [id number] [address] [place] [address] [place] Hemoglobin (Bld) [Mass/Vol] 14.6 g/dL Normal 11.5-15.5 [facility] Comment on above: Order Comment: Speci men Type: BLOOD SPECIMEN Ordering Facility: [facility] Address: [address] [place] [address] Performed By: #### 5 7021-8 #### [facility] CLIA [id number] [address] [place] [address] [place] Immature granulocytes (Bld) [#/Vol] 10*3/uL Normal <0.10 [facility] Comment on above: Order Comment: Speci men Type: BLOOD SPECIMEN Ordering Facility: [facility] Address: [address] [place] [address] Performed By: #### 5 7021-8 #### [facility] CLIA [id number] [address] [place] [address] [place] Immature granulocytes/100 WBC (Bld) 0.1 % Normal [facility] Comment on above: Order Comment: Speci men Type: BLOOD SPECIMEN Ordering Facility: [facility] Address: [address] [place] [address] Performed By: #### 5 7021-8 #### [facility] CLIA [id number] [address] [place] [address] [place] Lymphocytes (Bld) [#/Vol] 2.44 10*3/uL Normal 1.00-4.00 [facility] Comment on above: Order Comment: Speci men Type: BLOOD SPECIMEN Ordering Facility: [facility] Address: [address] [place] [address] Performed By: #### 5 7021-8 #### [facility] CLIA [id number] [address] [place] [address] [place] Lymphocytes/100 WBC (Bld) 34.0 % Normal [facility] Comment on above: Order Comment: Speci men Type: BLOOD SPECIMEN Ordering Facility: [facility] Address: [address] [place] [address] Performed By: #### 5 7021-8 #### [facility] CLIA [id number] [address] [place] [address] [place] MCH (RBC) [Entitic mass] 32.4 pg Normal 26.0-34.0 [facility] Comment on above: Order Comment: Speci men Type: BLOOD SPECIMEN Ordering Facility: [facility] Address: [address] [place] [address] Performed By: #### 5 7021-8 #### [facility] CLIA [id number] [address] [place] [address] [place] MCHC (RBC) [Mass/Vol] 34.0 g/dL Normal 30.5-36.0 [facility] Comment on above: Order Comment: Speci men Type: BLOOD SPECIMEN Ordering Facility: [facility] Address: [address] [place] [address] Performed By: #### 5 7021-8 #### [facility] CLIA [id number] [address] [place] [address] [place] MCV (RBC) [Entitic vol] 95.1 fL Normal 80.0-100.0 [facility] Comment on above: Order Comment: Speci men Type: BLOOD SPECIMEN Ordering Facility: [facility] Address: [address] [place] [address] Performed By: #### 5 7021-8 #### [facility] CLIA [id number] [address] [place] [address] [place] Monocytes (Bld) [#/Vol] 0.50 10*3/uL Normal <0.87 [facility] Comment on above: Order Comment: Speci men Type: BLOOD SPECIMEN Ordering Facility: [facility] Address: [address] [place] [address] Performed By: #### 5 7021-8 #### [facility] CLIA [id number] [address] [place] [address] [place] Monocytes/100 WBC (Bld) 7.0 % Normal [facility] Comment on above: Order Comment: Speci men Type: BLOOD SPECIMEN Ordering Facility: [facility] Address: [address] [place] [address] Performed By: #### 5 7021-8 #### [facility] CLIA [id number] [address] [place] [address] [place] Neutrophils (Bld) [#/Vol] 4.13 10*3/uL Normal 1.45-7.50 [facility] Comment on above: Order Comment: Speci men Type: BLOOD SPECIMEN Ordering Facility: [facility] Address: [address] [place] [address] Performed By: #### 5 7021-8 #### [facility] CLIA [id number] [address] [place] [address] [place] Neutrophils/100 WBC (Bld) 57.7 % Normal [facility] Comment on above: Order Comment: Speci men Type: BLOOD SPECIMEN Ordering Facility: [facility] Address: [address] [place] [address] Performed By: #### 5 7021-8 #### [facility] CLIA [id number] [address] [place] [address] [place] Nucleated RBC (Bld) [#/Vol] 10*3/uL Normal <0.01 [facility] Comment on above: Order Comment: Speci men Type: BLOOD SPECIMEN Ordering Facility: [facility] Address: [address] [place] [address] Performed By: #### 5 7021-8 #### [facility] CLIA [id number] [address] [place] [address] [place] Nucleated RBC/100 WBC (Bld) [Ratio] 0.0 /100 WBC Normal [facility] Comment on above: Order Comment: Speci men Type: BLOOD SPECIMEN Ordering Facility: [facility] Address: [address] [place] [address] Performed By: #### 5 7021-8 #### [facility] CLIA [id number] [address] [place] [address] [place] Platelet mean volume (Bld) [Entitic vol] 10.8 fL Normal 9.0-12.7 [facility] Comment on above: Order Comment: Speci men Type: BLOOD SPECIMEN Ordering Facility: [facility] Address: [address] [place] [address] Performed By: #### 5 7021-8 #### [facility] CLIA [id number] [address] [place] [address] [place] Platelets (Bld) [#/Vol] 253 10*3/uL Normal 150-400 [facility] Comment on above: Order Comment: Speci men Type: BLOOD SPECIMEN Ordering Facility: [facility] Address: [address] [place] [address] Performed By: #### 5 7021-8 #### [facility] CLIA [id number] [address] [place] [address] [place] RBC (Bld) [#/Vol] 4.51 10*6/uL Normal 3.90-5.20 [facility] Comment on above: Order Comment: Speci men Type: BLOOD SPECIMEN Ordering Facility: [facility] Address: [address] [place] [address] Performed By: #### 5 7021-8 #### [facility] CLIA [id number] [address] [place] [address] [place] WBC (Bld) [#/Vol] 7.17 10*3/uL Normal 3.70-11.00 [facility] Comment on above: Order Comment: Speci men Type: BLOOD SPECIMEN Ordering Facility: [facility] Address: [address] [place] [address] Performed By: #### 5 7021-8 #### [facility] CLIA [id number] [address] [place] [address] [place] CNOVon 02-29-2024 CNOV Office Visit (GASTNO) AURORA MONTAGUE ([id number]) 1975 F Date Time Provider Department 02/29/24 1:15 PM ASHLEY SHAH During your visit today, we recorded the following information about you: Pulse Blood pressure Weight Height 76/minute 101/69 97.5 kg 1.727 m Ashley Shah MD 02/29/2024 1:50 PM Signed Chief Compliant: Aurora Montague, 48 year old female, presents in the office today at the request of Hugo Mendez for GERD and abdominal pain. My final recommendations will be communicated back to the requesting physician by the way of the shared medical record, fax, or via [place] Mail. HPI: Aurora Montague is a 48 year old female who presents for abdominal pain Pain is generalized throughout the abdomen This has been going since age 19 Has been getting worse in the last few years Cramps alternating with sharp pain + lower back and rectal burning sensation + associated with diaphoresis and intermittent vomiting Chronic issues with back pain Has been on NSAIDs almost all her life, takes advil and started taking steroids orally started in 2008. Currently she has rectal bleeding when taking NSAIDs or steroids. 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 + mucous in the stool This is chronic Previous OV N/A Previous Procedures: N/A Previous Imagin12-12-12 CT ABD CX PEL IMPRESSION: 1. Normal CTA of the aorta. 2. There is minimal atelectatic changes seen at the right lung base with no acute cardiopulmonary process seen. 11-19-16 Comprehensive metabolic panel Component Ref Range AND Units 7 yr ago Resulting Agency Comments Glucose 70 - 99 mg/dL 126 High [facility] BUN 6 - 20 mg/dL 8 [facility] Creatinine 0.50 - 0.90 mg/dL 0.63 [facility] Bun/Cre Ratio 9 - 20 NOT REPORTED [facility] Calcium 8.6 - 10.4 mg/dL 8.3 Low [facility] Sodium 135 - 144 mmol/L 138 [facility] Potassium 3.7 - 5.3 mmol/L 3.8 [facility] Chloride 98 - 107 mmol/L 102 [facility] CO2 20 - 31 mmol/L 22 [facility] Anion Gap 9 - 17 mmol/L 14 [facility] Alkaline Phosphatase 35 - 104 U/L 61 [facility] ALT 5 - 33 U/L 9 [facility] AST <32 U/L 11 [facility] Total Bilirubin 0.3 - 1.2 mg/dL 0.33 [facility] Total Protein 6.4 - 8.3 g/dL 6.2 Low [facility] Albumin 3.5 - 5.2 g/dL 3.7 [facility] Albumin/Globulin Ratio 1.0 - 2.5 1.5 [facility] GFR Non- >60 mL/min >60 [facility] GFR >60 mL/min >60 [facility] GFR Comment CBC Component Ref Range AND Units 7 yr ago Comments WBC 3.5 - 11.0 k/uL 15.7 High RBC 4.0 - 5.2 m/uL 3.87 Low Hemoglobin 12.0 - 16.0 g/dL 12.3 Hematocrit 36 - 46 % 35.9 Low MCV 80 - 100 fL 92.7 MCH 26 - 34 pg 31.8 MCHC 31 - 37 g/dL 34.3 RDW 12.5 - 15.4 % 13.4 Platelets 140 - 450 k/uL 234 MPV 6.0 - 12.0 fL 9.3 ALLERGIES Allergen Reactions Nsaids (Non-Steroid* Unknown Stomach upset , GI Issues, bleeding Steroids [Corticost* Unknown PT states Bleeding buPROPion XL (WELLBUTRIN XL) 300 mg 24 hr tablet Every morning Cetirizine 10 mg cap clonazePAM (KLONOPIN) 0.5 mg tablet Take 1 tablet by mouth every 12 hours. esomeprazole (NEXIUM) 40 mg capsule 1 capsule. famotidine (PEPCID) 10 mg tablet sertraline (ZOLOFT) 100 mg tablet Take 100 mg by mouth every morning. oxybutynin ER (DITROPAN XL) 15 mg 24 hr Extended Rel Tab Take 1 tablet by mouth every afternoon. HISTORIES: No family history on file. No past medical history on file. No past surgical history on file. REVIEW OF SYSTEMS: General:No weight loss, malaise or fevers Respiratory: Negative for cough, hemoptysis, wheezing or shortness of breath Cardiovascular: Negative for chest pain, leg swelling or palpitations Gastrointestinal: See HPI Genitourinary: No history of dysuria, frequency or incontinence Musculoskeletal: joint pain or swelling Neurologic:Positive for headaches: Skin:Negative for lesions, rash, and itching Psychiatric: Positive for depression: Hematologic/Lymph:Ne gative for prolonged bleeding, bruising easily or swollen nodes Endocrine: Negative for cold or heat intolerance, polyuria, polydipsia and goiter PHYSICAL EXAMINATION: There were no vitals taken for this visit. General appearance: Well appearing, alert, in no acute distress, well-hydrated, well nourished. Skin: Skin color, texture, turgor normal, no suspicious rashes or lesions Head: Normocephalic, no masses, lesions, tenderness or abnormalities Eyes: Anicteric sclera. Pupils are equally round and reactive t (more content not included)... Normal [facility] Comprehensive metabolic 2000 panelon 02-29-2024 Albumin [Mass/Vol] 4.5 g/dL 3.9 - 4.9 g/dL [facility] ALP [Catalytic activity/Vol] 75 U/L 34 - 123 U/L [facility] ALT [Catalytic activity/Vol] 17 U/L 7 - 38 U/L [facility] Anion gap [Moles/Vol] 11 mmol/L 9 - 18 mmol/L [facility] AST [Catalytic activity/Vol] 17 U/L 13 - 35 U/L [facility] Bilirubin [Mass/Vol] 0.5 mg/dL 0.2 - 1 .3 mg/dL [facility] Calcium [Mass/Vol] 9.3 mg/dL 8.5 - 10. 2 mg/dL [facility] Chloride [Moles/Vol] 104 mmol/L 97 - 10 5 mmol/L [facility] CO2 [Moles/Vol] 24 mmol/L 22 - 30 mmol/L [facility] Creatinine [Mass/Vol] 1.03 mg/dL High 0.58 - 0.96 mg/dL [facility] GFR/1.73 sq M.predicted among non-blacks MDRD (S/P/Bld) [Vol rate/Area] 68 mL/min/{1.73_m2} - PINF [facility] Comment on above: Estimated Glomerular Filtration Rate (eGFR) is calculated using the 2020 CKD-EPI creatinine equation. This equation utilizes serum creatinine, sex, and age as parameters. The creatinine assay has traceable calibration to isotope dilution-mass spectrometry. Refer to KDIGO guidelines for clinical interpretation. In patients with unstable renal function, e.g. those with acute kidney injury, the eGFR may not accurately reflect actual GFR. Glucose [Mass/Vol] 91 mg/dL 74 - 99 mg/dL [facility] Comment on above: The [place] Di[employer] Association (ADA) provides guidance for cutoff values for fasting glucose and random glucose. The ADA defines fasting as no caloric intake for at least 8 hours. Fasting plasma glucose results between 100 to 125 mg/dL indicate increased risk for diabetes (prediabetes). Fasting plasma glucose results greater than or equal to 126 mg/dL meet the criteria for diagnosis of diabetes. In the absence of unequivocal hyperglycemia, results should be confirmed by repeat testing. In a patient with classic symptoms of hyperglycemia or hyperglycemic crisis, random plasma glucose results greater than or equal to 200 mg/dL meet the criteria for diagnosis of diabetes. Reference: Standards of Medical Care in Diabetes 2016, [place] [employer]. Diabetes Care. 2016.39(Suppl 1). Interpretation and review of laboratory results Abnormal [facility] Potassium [Moles/Vol] 4.3 mmol/L 3.7 - 5.1 mmol/L [facility] Protein [Mass/Vol] 7.2 g/dL 6.3 - 8.0 g/dL [facility] Sodium [Moles/Vol] 139 mmol/L 136 - 144 mmol/L [facility] Urea nitrogen [Mass/Vol] 11 mg/dL 7 - 21 mg/dL [facility] Albumin [Mass/Vol] 4.5 g/dL Normal 3.9-4.9 [facility] Comment on above: Order Comment: Speci men Type: BLOOD SPECIMEN Ordering Facility: [facility] Address: [address] [id number] Performed By: #### ARIANA ANDREA #### [facility] CLIA [id number] [address] [place] [address] [place] ALP [Catalytic activity/Vol] 75 U/L Normal 34-123 [facility] Comment on above: Order Comment: Speci men Type: BLOOD SPECIMEN Ordering Facility: [facility] Address: [address] [place] [address] Performed By: #### ARIANA ANDREA #### [facility] CLIA [id number] [address] [place] [address] [place] ALT [Catalytic activity/Vol] 17 U/L Normal 7-38 [facility] Comment on above: Order Comment: Speci men Type: BLOOD SPECIMEN Ordering Facility: [facility] Address: [address] [place] [address] Performed By: #### ARIANA ANDREA #### [facility] CLIA [id number] [address] [place] [address] [place] Anion gap [Moles/Vol] 11 mmol/L Normal 9-18 [facility] Comment on above: Order Comment: Speci men Type: BLOOD SPECIMEN Ordering Facility: [facility] Address: [address] [place] [address] Performed By: #### ARIANA ANDREA #### [facility] CLIA [id number] [address] [place] [address] [place] AST [Catalytic activity/Vol] 17 U/L Normal 13-35 [facility] Comment on above: Order Comment: Speci men Type: BLOOD SPECIMEN Ordering Facility: [facility] Address: [address] [place] [address] Performed By: #### ARIANA ANDREA #### [facility] CLIA [id number] [address] [place] [address] [place] Bilirubin [Mass/Vol] 0.5 mg/dL Normal 0.2-1.3 [facility] Comment on above: Order Comment: Speci men Type: BLOOD SPECIMEN Ordering Facility: [facility] Address: [address] [place] [address] Performed By: #### ARIANA ANDREA #### [facility] CLIA [id number] [address] [place] [address] [place] Calcium [Mass/Vol] 9.3 mg/dL Normal 8.5-10.2 [facility] Comment on above: Order Comment: Speci men Type: BLOOD SPECIMEN Ordering Facility: [facility] Address: [address] [place] [address] Performed By: #### ARIANA ANDREA #### [facility] CLIA [id number] [address] [place] [address] [place] Chloride [Moles/Vol] 104 mmol/L Normal 97-105 [facility] Comment on above: Order Comment: Speci men Type: BLOOD SPECIMEN Ordering Facility: [facility] Address: [address] [place] [address] Performed By: #### ARIANA ANDREA #### [facility] CLIA [id number] [address] [place] [address] [place] CO2 [Moles/Vol] 24 mmol/L Normal 22-30 [facility] Comment on above: Order Comment: Speci men Type: BLOOD SPECIMEN Ordering Facility: [facility] Address: [address] [place] [address] Performed By: #### ARIANA ANDREA #### [facility] CLIA [id number] [address] [place] [address] [place] Creatinine [Mass/Vol] 1.03 mg/dL High 0.58-0.96 [facility] Comment on above: Order Comment: Speci men Type: BLOOD SPECIMEN Ordering Facility: [facility] Address: [address] [place] [address] Performed By: #### ARIANA ANDREA #### [facility] CLIA [id number] [address] [place] [address] [place] Creatinine and Glomerular filtration rate.predicted panel (S/P/Bld) 68 mL/min/1.73m??? Normal >=60 [facility] Comment on above: Order Comment: Jay zaldivar Type: BLOOD SPECIMEN Ordering Facility: [facility] Address: [address] [place] [address] Result Comment: Sarah mated Glomerular Filtration Rate (eGFR) is calculated using the 2020 CKD-EPI creatinine equation. This equation utilizes serum creatinine, sex, and age as parameters. The creatinine assay has traceable calibration to isotope dilution-mass spectrometry. Refer to KDIGO guidelines for clinical interpretation. In patients with unstable renal function, e.g. those with acute kidney injury, the eGFR may not accurately reflect actual GFR. Performed By: #### ARIANA ANDREA #### [facility] CLIA [id number] [address] [place] [address] [place] Glucose [Mass/Vol] 91 mg/dL Normal 74-99 [facility] Comment on above: Order Comment: Jay zaldivar Type: BLOOD SPECIMEN Ordering Facility: [facility] Address: [address] [place] [address] Result Comment: The [place] Diabetes Association (ADA) provides guidance for cutoff values for fasting glucose and random glucose. The ADA defines fasting as no caloric intake for at least 8 hours. Fasting plasma glucose results between 100 to 125 mg/dL indicate increased risk for diabetes (prediabetes). Fasting plasma glucose results greater than or equal to 126 mg/dL meet the criteria for diagnosis of diabetes. In the absence of unequivocal hyperglycemia, results should be confirmed by repeat testing. In a patient with classic symptoms of hyperglycemia or hyperglycemic crisis, random plasma glucose results greater than or equal to 200 mg/dL meet the criteria for diagnosis of diabetes. Reference: Standards of Medical Care in Diabetes 2016, [place] [employer]. Diabetes Care. 2016.39(Suppl 1). Performed By: #### ARIANA ANDREA #### [facility] CLIA [id number] [address] [place] [address] [place] Potassium [Moles/Vol] 4.3 mmol/L Normal 3.7-5.1 [facility] Comment on above: Order Comment: Speci men Type: BLOOD SPECIMEN Ordering Facility: [facility] Address: [address] [place] [address] Performed By: #### ARIANA ANDREA #### [facility] CLIA [id number] [address] [place] [address] [place] Protein [Mass/Vol] 7.2 g/dL Normal 6.3-8.0 [facility] Comment on above: Order Comment: Speci men Type: BLOOD SPECIMEN Ordering Facility: [facility] Address: [address] [place] [address] Performed By: #### ARIANA ANDREA #### [facility] CLIA [id number] [address] [place] [address] [place] Sodium [Moles/Vol] 139 mmol/L Normal 136-144 [facility] Comment on above: Order Comment: Speci men Type: BLOOD SPECIMEN Ordering Facility: [facility] Address: [address] [place] [address] Performed By: #### ARIANA ANDREA #### [facility] CLIA [id number] [address] [place] [address] [place] Urea nitrogen [Mass/Vol] 11 mg/dL Normal 7-21 [facility] Comment on above: Order Comment: Speci men Type: BLOOD SPECIMEN Ordering Facility: [facility] Address: [address] [place] [address] Performed By: #### ARIANA ANDREA #### [facility] CLIA [id number] [address] [place] [address] [place] ENDOMYSIAL ANTIBODY, IGGon 0 02-29-2024 ENDOMYSIAL ANTIBODY, IGG <1:10 Normal <1:10 [facility] Comment on above: Order Comment: Jay zaldivar Type: BLOOD SPECIMEN Ordering Facility: [facility] Address: [address] [place] [address] Result Comment: INTE RPRETIVE INFORMATION: Endomysial Antibody, IgG The presence of AMBER IgG antibody may be useful in the identification of IgA-deficient patients at risk for celiac disease. Positive results must be confirmed by biopsy of the small intestine to establish a diagnosis of celiac disease. This test was developed and its performance characteristics determined by [facility]. It has not been cleared or approved by the [place] Food and Drug Administration. This test was performed in a CLIA certified laboratory and is intended for clinical purposes. Performed By: [facility] [address] [place] [address] Rice Drier: Ramy Corbett MD, PhD CLIA Number: [id number] Performed By: #### ARIANA ANDREA #### [facility] CLIA [id number] [address] [place] [address] [place] Endomysium IgA Titr Ser IFon 02-29-2024 Endomysium IgA IF (S) [Titer] <1:10 Normal <1:10, Test Not Indicated [facility] Comment on above: Order Comment: Jay zaldivar Type: BLOOD SPECIMEN Ordering Facility: [facility] Address: [address] [place] [address] Performed By: #### ARIANA ANDREA #### [facility] CLIA [id number] [address] [place] [address] [place] GLIADIN (DEAMIDATED) AB, IGA on 02-29-2024 GLIAD DEAMIDATED IGA QUAL Negative Normal Negative, Test not Indicated [facility] Comment on above: Order Comment: Jay zaldivar Type: BLOOD SPECIMEN Ordering Facility: [facility] Address: [address] [place] [address] Result Comment: This is used as an aid in diagnosis of celiac disease. Clinical correlation is required. The following results were obtained with an [employer] QUANTA Lite Gliadin IgA MI Gliadin. Gliadin IgA values obtained with different manufacturers' assay methods may not be used interchangeably. The magnitude of the reported IgA levels cannot be correlated to an endpoint titer. Performed By: #### ARIANA ANDREA #### [facility] CLIA [id number] [address] [place] [address] [place] Gliadin peptide IgA Qn (S) 5 Units Normal <20 [facility] Comment on above: Order Comment: Speci men Type: BLOOD SPECIMEN Ordering Facility: [facility] Address: [address] [place] [address] Performed By: #### ARIANA ANDREA #### [facility] CLIA [id number] [address] [place] [address] [place] GLIADIN (DEAMIDATED) AB, IGG on 02-29-2024 GLIAD DEAMIDATED IGG QUAL Negative Normal Negative, Test not Indicated [facility] Comment on above: Order Comment: Speci [facility] Type: BLOOD SPECIMEN Ordering Facility: [facility] Address: [address] [place] [address] Result Comment: This test is used as an aid in diagnosis of celiac disease in IgA-deficient individuals only. Clinical correlation is required. The following results were obtained with an Inova QUANTA Lite Gliadin IgG [place] Gliadin. Gliadin IgG values obtained with different manufacturers' assay methods may not be used interchangeably. The magnitude of the reported IgG levels cannot be correlated to an endpoint titer. Performed By: #### ARIANA ANDREA #### [facility] CLIA [id number] [address] [place] [address] [place] Gliadin peptide IgG Qn (S) 2 Units Normal <20 [facility] Comment on above: Order Comment: Speci men Type: BLOOD SPECIMEN Ordering Facility: [facility] Address: [address] [place] [address] Performed By: #### ARIANA ANDREA #### [facility] CLIA [id number] [address] [place] [address] [place] tTG IgA Qn (S)on 02-29-2024 TRANSGLUTAMINASE IGA ABS INTERPRETATION Negative Normal Negative [facility] Comment on above: Order Comment: Speci men Type: BLOOD SPECIMENOrdering Facility: [facility] Address: [address] [place] [address] Result Comment: The following results were obtained with Inova QUANTA Lite R h-tTG IgA MI.???R h-tTG IgA values obtained with different manufacturers' assay methods may not be used interchangeably. The magnitude of the reported IgA levels cannot be correlated to an endpoint???concentration. This is used as an aid in diagnosis of celiac disease. Clinical correlation is required. Performed By: #### 3 1017-7, 25128-6 ####[facility] [id number] [place] [address] [place] tTG IgA Ser-aCncon tTG IgA Qn (S) <2 Normal <4 [facility] Comment on above: Order Comment: Speci men Type: BLOOD SPECIMENOrdering Facility: [facility] Address: [address] [place] [address] Performed By: #### 3 1017-7, 89189-7 ####[facility] [id number] [address] [place] tTG IgG Qn (S)on 02-29-2024 TRANSGLUTAMINASE IGG ABS INTERPRETATION Negative Normal Negative [facility] Comment on above: Order Comment: Speci men Type: BLOOD SPECIMENOrdering Facility: [facility] Address: [address] [place] [address] Result Comment: The following results were obtained with Inova QUANTA Lite R h-tTG IgG MI.???R h-tTG IgG values obtained with different manufacturers' assay methods may not be used interchangeably. The magnitude of the reported IgG levels cannot be correlated to an endpoint???concentration. This test is used as an aid in diagnosis of celiac disease in IgA-deficient individuals only. Clinical correlation is required. Performed By: #### 3 1017-7, 37798-0 ####[facility] [id number] [place] [address] [place] tTG IgG Ser-aCncon 4 tTG IgG Qn (S) 4 U/mL Normal <6 [facility] Comment on above: Order Comment: Speci men Type: BLOOD SPECIMENOrdering Facility: [facility] Address: [address] [place] [address] Performed By: #### 3 1017-7, 10568-1 ####[facility] [id number] [address] [place] CNOVon 02-19-2024 CNOV Office Visit (SPMIND) AURORA MONTAGUE ([id number]) 1975 F Date Time Provider Department 02/19/24 11:15 AM RAKESH THOMPSON SPMIND During your visit today, we recorded the following information about you: Weight Height 96.2 kg 1.702 m Rakesh Thompson PA-C 02/19/2024 12:54 PM Signed [facility] Radicular Arm Pain - Chronic (> 12 weeks) follow up Exam SUBJECTIVE HISTORY OF PRESENT ILLNESS: Aurora Montague is a 48 year old female who presents with a chief complaint of neck and arm pain. Pain is currently 2/10. Will increase to 6/10 at its worst (neck). She was last seen 03/10/23 for neck and arm symptoms. Has since completed CT, MRI and EMG. In May she stretched one day and her left shoulder popped and her pain improved. The pain radiating pain she had into the left arm is now better. Burning in posterior neck. Stiffness. Constant. Radiates to: bilateral shoulder blades - comes and goes. Tension headaches from back of the head and sometimes the entire head. Burning pain around the left elbow. Intermittent spasms in the left arm or sides. Sharp, nerve pain in bilateral hands and all the fingers. Comes and goes. Difficulty with right hand - drops things at times. Some dexterity issues. States this has gotten a little worse in the right hand. Still weakness in the left tricep. Unchanged. She feels off balance - mildly increased over time. Numbness/tingling: all the fingers. Comes and goes. She has intermittent numbness across the bilateral upper and lower jaw which started around June 2022. Urinary leakage with coughing/sneezing. Otherwise normal sensation and bale to use the restroom ok. Has been having abdominal pain - sees GI 02/28. Wanting to establish with a new PCP. Nicotine use: quit smoking March 23 Interventions: Medications: Wellbutrin, Zoloft, Klonopin -Previously tried: [place], robaxin, diclofenac 75mg BID ,medrol dose pack (11/27/22), prednisone (01/26/23), naproxen - GI bleed/ulcer -tylenol - no relief -topicals - no relief -stopped NSAIDs due to GI issues Physical therapy: completed 4 weeks December 2022 - caused more pain. Previous spine injection history: none - states nervous of injections Previous spine surgery: -11/18/2016 : Anterior cervical C4/5, C5/6, C6/7 discectomy, C5, C6 corpectomy and fusion with iliac strut graft and Invizia plate with Dr. Harvey at [facility] Office visit 03/10/23: History of Anterior cervical C4/5, C5/6, C6/7 discectomy, C5, C6 corpectomy and fusion on 11/18/16 at [facility]. Prior to surgery she had severe pain in the neck to both shoulders. - pain improved after surgery. After surgery she developed weakness in the left arm. 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 The medial antebrachial nerve also could not be obtained. . MRI cervical, CT cervical and MRI left brachial plexus were also completed at that time. This weakness after surgery did improve some with time but not completely. She is here for another opinion on her symptoms and for new weakness in the left arm. Currently she has burning pain in posterior neck. Comes and goes but mostly constant. Intermittent shooting pain in right side of the neck - base of the skull. Pain throughout the left upper arm to posterior forearm to 2-4 fingers and sometimes thumb. Not sure about 5th digit. Intermittent numbness and tingling in all the left fingers. If she uses the left arm she gets muscle spasm in the left tricep and sometimes down her left side. Occasional twinge of pain in the right arm. Sometimes cramping and locking in the either hand. Started before surgery. Pain in bilateral wrists New weakness in left arm starting in November. Difficulty lifting a blanket over her. Dropping her pen in the right hand for the past year. Able to do buttons and zippers. Some difficulty paper or grabbing small objects. No change in bowel/bladder. Urinary frequency. Balance has always been off. No changes. She has numbness across the bilateral upper and lower jaw which started around June 2022. Left side of the roof of the mouth is numb. This past Thursday she started to have pain in the left side of the face. Seen in ED and prescribed [place] as well as amoxicillin for possible tooth infection. 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 Lots of cervical flexion/extension which aggravates the neck. Sometimes when she looks up she will feel a band snap in the left leg . Smoking 5 cigarettes a day. Working on quitting. She reports an increase in her low back pain following administration of contrast for her CT face 03/08/23. This has improved. States she did have Covid 19 beginning April 2022. Recently following with her PCP fo (more content not included)... Normal [facility] XR LUMBAR 2V AP/LATon 2023 XR LUMBAR 2V AP/LAT * * *Final Report* * * DATE OF EXAM: Feb 19 2024 12:32PM CCX 5229 - XR LUMBAR 2V AP/LAT / PROCEDURE REASON: multiple diagnoses * * * * Physician Interpretation * * * * EXAMINATION / TECHNIQUE: XR LUMBAR 2V AP/LAT PATIENT/TECHNOLOGIST PROVIDED HISTORY: Pt sts spine issues and pain. CLINICAL INFORMATION ( PROVIDED BY ORDERING CLINICIAN) : Chronic bilateral low back pain with right-sided sciatica Chronic bilateral low back pain with right-sided sciatica COMPARISON: MRI lumbar spine 04/14/2022 RESULT: Counting reference: Lumbosacral junction. For the purposes of this report, L4-5 is considered the level of the iliac crest and there are 5 lumbar-type vertebrae. Anatomic Variants: None. There is a slight dextrocurvature of the lumbar spine centered at L3-L4. Vertebral body heights and lateral alignment are maintained. There is mild to moderate narrowing of the L5-S1 intervertebral disc space. There are mild degenerative changes of the L1-L3 levels. Facet joints are notable for mild degenerative changes. Sacroiliac joints are maintained.There are subchondral cysts of the right acetabulum, suggestive of hip osteoarthritis. IMPRESSION: Mild to moderate lumbar degenerative changes. Obstetrics Technician: DAMON Transcribe Date/Time: Feb 19 2024 4:22P Dictated by : SARAH SEBASTIAN MD This examination was interpreted and the report reviewed and electronically signed by: VEE ALEXANDER MD on Feb 19 2024 6:07PM EST [id number] CN Normal [facility] XR Lumbar spine AP and Later panda 02-19-2024 IMPRESSION: Mild to moderate lumbar degenerative changes. Obstetrics Technician: [facility] Transcribe Date/Time: Feb 19 2024 4:22P Dictated by : SARAH SEBASTIAN MD This examination was interpreted and the report reviewed and electronically signed by: VEE ALEXANDER MD on Feb 19 2024 6:07PM EST DIVISION OF RADIOLOGY * * *Final Report* * * DATE OF EXAM: Feb 19 2024 12:32PM CCX [id number] - XR LUMBAR 2V AP/LAT / PROCEDURE REASON: multiple diagnoses * * * * Physician Interpretation * * * * EXAMINATION / TECHNIQUE: XR LUMBAR 2V AP/LAT PATIENT/TECHNOLOGIST PROVIDED HISTORY: Pt sts spine issues and pain. CLINICAL INFORMATION ( PROVIDED BY ORDERING CLINICIAN) : Chronic bilateral low back pain with right-sided sciatica Chronic bilateral low back pain with right-sided sciatica COMPARISON: MRI lumbar spine 04/14/2022 RESULT: Counting reference: Lumbosacral junction. For the purposes of this report, L4-5 is considered the level of the iliac crest and there are 5 lumbar-type vertebrae. Anatomic Variants: None. There is a slight dextrocurvature of the lumbar spine centered at L3-L4. Vertebral body heights and lateral alignment are maintained. There is mild to moderate narrowing of the L5-S1 intervertebral disc space. There are mild degenerative changes of the L1-L3 levels. Facet joints are notable for mild degenerative changes. Sacroiliac joints are maintained.There are subchondral cysts of the right acetabulum, suggestive of hip osteoarthritis. DIVISION OF RADIOLOGY Provider, [facility] - 02/19/2024 * * *Final Report* * * DATE OF EXAM: Feb 19 2024 12:32PM CCX 5229 - XR LUMBAR 2V AP/LAT / PROCEDURE REASON: multiple diagnoses * * * * Physician Interpretation * * * * EXAMINATION / TECHNIQUE: XR LUMBAR 2V AP/LAT PATIENT/TECHNOLOGIST PROVIDED HISTORY: Pt sts spine issues and pain. CLINICAL INFORMATION ( PROVIDED BY ORDERING CLINICIAN) : Chronic bilateral low back pain with right-sided sciatica Chronic bilateral low back pain with right-sided sciatica COMPARISON: MRI lumbar spine 04/14/2022 RESULT: Counting reference: Lumbosacral junction. For the purposes of this report, L4-5 is considered the level of the iliac crest and there are 5 lumbar-type vertebrae. Anatomic Variants: None. There is a slight dextrocurvature of the lumbar spine centered at L3-L4. Vertebral body heights and lateral alignment are maintained. There is mild to moderate narrowing of the L5-S1 intervertebral disc space. There are mild degenerative changes of the L1-L3 levels. Facet joints are notable for mild degenerative changes. Sacroiliac joints are maintained.There are subchondral cysts of the right acetabulum, suggestive of hip osteoarthritis. IMPRESSION IMPRESSION: Mild to moderate lumbar degenerative changes. Obstetrics Technician: PSCB Transcribe Date/Time: Feb 19 2024 4:22P Dictated by : SARAH SEBASTIAN MD This examination was interpreted and the report reviewed and electronically signed by: VEE ALEXANDER MD on Feb 19 2024 6:07PM EST [facility] Radiology Study observation (narrative) [facility] XR Lumbar spine AP and Later alOrdered By: Ccf Provider on 02-19-2024 [facility] XR hand RT min 3V*on 04-15-2 024 XR hand RT min 3V* [facility] [place] [address] [place] [address] XRay Report Signed Patient: Aurora Montague MR#: [id number] : 1975 Acct:[id number] Age/Sex: 48 / F ADM Date: 02/15/24 Loc: XDUCLY Room: Type: [facility] Attending Dr: Flower NASH Copies to: SAAD Milian Ordering Provider: SAAD Milian Date of Service: 02/15/24 XR/XR hand RT min 3V*: M79.641 - Pain in right hand RIGHT HAND - 3 views COMPARISON: 08/02/2019 CLINICAL DATA: Patient punched a wall yesterday and has pain and abrasions at the fourth metacarpal. AP, lateral and oblique views were obtained. There is no evidence of fracture or dislocation. There is minor dorsal soft tissue swelling over the metacarpals. XR/XR hand RT min 3V* IMPRESSION: NO ACUTE BONY INJURY. Impression dictated by: Ekta Polo M.D.02/15/2024 4:34 PM Dictation Location: [place] [address] Transcribed By: [facility] 02/15/24 1634 Dictated By: Ekta Polo MD 02/15/24 1629 Signed By: 02/15/24 1634 Normal [facility] MR Cervical spine WO contras ton 04-21-2023 IMPRESSION: Cervical spondylosis and postoperative changes. Mild spinal canal stenosis at C3-C4. Varying degrees of up to moderate to severe foraminal stenoses, most notable at C5-C6 Anatomic Variant: None. Assume 7 cervical vertebrae with counting from the craniocervical junction. Obstetrics Technician: PSCB Transcribe Date/Time: Apr 21 2023 7:54A Dictated by : NATALY ROBLERO DO This examination was interpreted and the report reviewed and electronically signed by: NATALY ROBLERO DO on Apr 21 2023 8:02AM [facility] DIVISION OF RADIOLOGY * * *Final Report* * * DATE OF EXAM: Apr 20 2023 4:35PM [facility] 0297 - MRI CERVICAL SPINE WO IVCON / PROCEDURE REASON: multiple diagnoses * * * * Physician Interpretation * * * * EXAMINATION: MRI CERVICAL SPINE WO IVCON CLINICAL HISTORY: Radiculopathy, cervical region S/P cervical spinal fusion Numbness and tingling in left arm Numbness and tingling in left arm TECHNIQUE: Routine cervical spine MR protocol without gadolinium. MQ: [id number] COMPARISON: CT cervical spine 03/25/2023 RESULT: Counting reference: Craniocervical junction. Anatomic Variants: None. Localizer images: No additional findings. Alignment: Alignment is anatomic. Craniocervical junction: Craniocervical junction is normal. Cord: The visualized cord is within normal limits of signal intensity and morphology. Bone marrow signal/fracture: No evidence of pathologic marrow infiltration. No evidence of prior fracture. Anterior fusion C4-C7 with caudal lobectomy grafting unchanged. Cervical soft tissues: The paraspinal soft tissues are within normal limits. C2-C3: Canal and foramina are patent. C3-C4: Mild spinal canal stenosis secondary to small central protrusion. Mild bilateral foraminal stenosis secondary to uncovertebral joint degenerative hypertrophy. C4-C5: Spinal canal is patent. Mild bilateral foraminal stenosis secondary to uncovertebral joint degenerative changes. C5-C6: Spinal canal is patent. Dorsal endplate osteophytic hypertrophic changes flattening the ventral thecal sac. Moderate to severe right greater than left foraminal stenosis. C6-C7: Spinal canal is patent. Moderate bilateral foraminal stenosis. C7-T1: Canal and foramina are patent. DIVISION OF RADIOLOGY Provider, [facility] - 04/21/2023 * * *Final Report* * * DATE OF EXAM: Apr 20 2023 4:35PM [facility] 0297 - MRI CERVICAL SPINE WO IVCON / PROCEDURE REASON: multiple diagnoses * * * * Physician Interpretation * * * * EXAMINATION: MRI CERVICAL SPINE WO IVCON CLINICAL HISTORY: Radiculopathy, cervical region S/P cervical spinal fusion Numbness and tingling in left arm Numbness and tingling in left arm TECHNIQUE: Routine cervical spine MR protocol without gadolinium. MQ: [id number] COMPARISON: CT cervical spine 03/25/2023 RESULT: Counting reference: Craniocervical junction. Anatomic Variants: None. Localizer images: No additional findings. Alignment: Alignment is anatomic. Craniocervical junction: Craniocervical junction is normal. Cord: The visualized cord is within normal limits of signal intensity and morphology. Bone marrow signal/fracture: No evidence of pathologic marrow infiltration. No evidence of prior fracture. Anterior fusion C4-C7 with caudal lobectomy grafting unchanged. Cervical soft tissues: The paraspinal soft tissues are within normal limits. C2-C3: Canal and foramina are patent. C3-C4: Mild spinal canal stenosis secondary to small central protrusion. Mild bilateral foraminal stenosis secondary to uncovertebral joint degenerative hypertrophy. C4-C5: Spinal canal is patent. Mild bilateral foraminal stenosis secondary to uncovertebral joint degenerative changes. C5-C6: Spinal canal is patent. Dorsal endplate osteophytic hypertrophic changes flattening the ventral thecal sac. Moderate to severe right greater than left foraminal stenosis. C6-C7: Spinal canal is patent. Moderate bilateral foraminal stenosis. C7-T1: Canal and foramina are patent. IMPRESSION IMPRESSION: Cervical spondylosis and postoperative changes. Mild spinal canal stenosis at C3-C4. Varying degrees of up to moderate to severe foraminal stenoses, most notable at C5-C6 Anatomic Variant: None. Assume 7 cervical vertebrae with counting from the craniocervical junction. Obstetrics Technician: DAMON Transcribe Date/Time: Apr 21 2023 7:54A Dictated by : NATALY ROBLERO DO This examination was interpreted and the report reviewed and electronically signed by: NATALY ROBLERO DO on Apr 21 2023 8:02AM EST [facility] MR Cervical spine WO contras tOrdered By: Ccf Provider on 04-21-2023 [facility] MR Cervical spine WO contras ton 04-20-2023 Radiology Study observation (narrative) [facility] EMG(NEURO/NI)on 04-03-2023 [facility] [address] Cervical spine WO contras ton 03-25-2023 IMPRESSION: Multilevel degenerative changes of the cervical spine, most pronounced at C5-C6 and moderate bilateral neural foraminal narrowing. Anatomic Variant: None. Assume 7 cervical vertebrae with counting from the craniocervical junction. Obstetrics Technician: DAMON Transcribe Date/Time: Mar 25 2023 4:30P Dictated by : RORO SHER MD This examination was interpreted and the report reviewed and electronically signed by: RORO SHER MD on Mar 25 2023 4:37PM [facility] DIVISION OF RADIOLOGY * * *Final Report* * * DATE OF EXAM: Mar 25 2023 3:37PM [facility] 0505 - CT CERVICAL SPINE WO IVCON / PROCEDURE REASON: multiple diagnoses * * * * Physician Interpretation * * * * EXAMINATION: CT CERVICAL SPINE WO IVCON CLINICAL HISTORY: Radiculopathy, cervical region S/P cervical spinal fusion Numbness and tingling in left arm Numbness and tingling in left arm TECHNIQUE: Spiral, high resolution axial unenhanced images were obtained from the skull base to the cervicothoracic junction with sagittal and coronal planar reconstructions. MQ: [id number] CT Radiation dose: Integrated CT Dose-Length Product (DLP) for this visit = 728 mGy*cm CT Dose Reduction Employed: Automated exposure control (AEC) COMPARISON: None. RESULT: Counting reference: Craniocervical junction. Anatomic Variants: None. Postoperative change: There are postoperative findings related to anterior corpectomy, bone graft and fusion extending from C4 to C7. Accounts Administrator (topogram) images: No significant findings. Alignment: Alignment is anatomic. Craniocervical junction: Craniocervical junction is normal. Osseous structures/fracture: No evidence of a lytic or blastic process in the visualized spine. No evidence of acute or chronic fracture. Cervical soft tissues: The paraspinal soft tissues are within normal limits. Degenerative changes: C2-C3: Canal and foramina are patent. C3-C4: There is mild bilateral facet arthropathy resulting in minimal bilateral neural foraminal narrowing on the left. There is no significant spinal canal stenosis or right neural foraminal narrowing. C4-C5: There is mild bilateral facet arthropathy and uncovertebral osteophytes resulting in minimal right neural foraminal narrowing. There is no spinal canal stenosis or left neural foraminal narrowing. C5-C6: There is mild bilateral facet arthropathy and uncovertebral osteophytes resulting in moderate bilateral neural foraminal narrowing. There is no significant spinal canal stenosis. C6-C7: There is mild bilateral facet arthropathy and uncovertebral osteophytes resulting in moderate left and mild right neural foraminal narrowing. There is no spinal canal stenosis. C7-T1: Canal and foramina are patent. DIVISION OF RADIOLOGY Provider, [facility] - 03/25/2023 * * *Final Report* * * DATE OF EXAM: Mar 25 2023 3:37PM [facility] 0505 - CT CERVICAL SPINE WO IVCON / PROCEDURE REASON: multiple diagnoses * * * * Physician Interpretation * * * * EXAMINATION: CT CERVICAL SPINE WO IVCON CLINICAL HISTORY: Radiculopathy, cervical region S/P cervical spinal fusion Numbness and tingling in left arm Numbness and tingling in left arm TECHNIQUE: Spiral, high resolution axial unenhanced images were obtained from the skull base to the cervicothoracic junction with sagittal and coronal planar reconstructions. MQ: [id number] CT Radiation dose: Integrated CT Dose-Length Product (DLP) for this visit = 728 mGy*cm CT Dose Reduction Employed: Automated exposure control (AEC) COMPARISON: None. RESULT: Counting reference: Craniocervical junction. Anatomic Variants: None. Postoperative change: There are postoperative findings related to anterior corpectomy, bone graft and fusion extending from C4 to C7. Accounts Administrator (topogram) images: No significant findings. Alignment: Alignment is anatomic. Craniocervical junction: Craniocervical junction is normal. Osseous structures/fracture: No evidence of a lytic or blastic process in the visualized spine. No evidence of acute or chronic fracture. Cervical soft tissues: The paraspinal soft tissues are within normal limits. Degenerative changes: C2-C3: Canal and foramina are patent. C3-C4: There is mild bilateral facet arthropathy resulting in minimal bilateral neural foraminal narrowing on the left. There is no significant spinal canal stenosis or right neural foraminal narrowing. C4-C5: There is mild bilateral facet arthropathy and uncovertebral osteophytes resulting in minimal right neural foraminal narrowing. There is no spinal canal stenosis or left neural foraminal narrowing. C5-C6: There is mild bilateral facet arthropathy and uncovertebral osteophytes resulting in moderate bilateral neural foraminal narrowing. There is no significant spinal canal stenosis. C6-C7: There is mild bilateral facet arthropathy and uncovertebral osteophytes resulting in moderate left and mild right neural foraminal narrowing. There is no spinal canal stenosis. C7-T1: Canal and foramina are patent. IMPRESSION IMPRESSION: Multilevel degenerative changes of the cervical spine, most pronounced at C5-C6 and moderate bilateral neural foraminal narrowing. Anatomic Variant: None. Assume 7 cervical vertebrae with counting from the craniocervical junction. Obstetrics Technician: PSCB Transcribe Date/Time: Mar 25 2023 4:30P Dictated by : RORO SHER MD This examination was interpreted and the report reviewed and electronically signed by: RORO SHER MD on Mar 25 2023 4:37PM EST [facility] Radiology Study observation (narrative) [facility] CT Cervical spine WO contras tOrdered By: [facility] Provider on 03-25-2023 [facility] CT FACIAL BONES W CONon 05-0 CT FACIAL BONES W CON EXAMINATION: CT FACIAL BONES W CON HISTORY: Toothache left jaw pain and facial pain COMPARISON: CT from [facility] 11/05/2016 of the cervical spine TECHNIQUE: 100 mL IV Omnipaque-300. Dose reduction techniques were achieved by using automated exposure control and/or adjustment of mA and/or kV according to patient size and/or use of iterative reconstruction technique. FINDINGS: No evidence for soft tissue abscess in the region left mandible or maxilla. No significant facial cellulitis is suggested and no gas-forming infection demonstrated. Visualized salivary glands appear normal. Mildly prominent lymph nodes are seen in the upper deep cervical chain on left side. For example station 2 lymph nodes on left side measuring up to 1 cm short axis. There are no maxillary teeth. No evidence for osteomyelitis of the mandible and of the residual left mandibular teeth there is no apical tooth abscess identified. Partially visualized anterior fusion hardware in the cervical spine. IMPRESSION: 1. Patient has residual teeth 20-28. All other teeth are absent. 2. No apical tooth lucency in the residual teeth of the mandible. No osteomyelitis of the mandible. There are residual maxillary teeth. 3. No odontogenic abscess or significant facial cellulitis identified. 4. Probable reactive lymphadenopathy in the left upper deep cervical chain. However, not substantially changed as compared to study from [facility] on 11/05/2016 indicating this is a benign reactive lymph node. 5. No evidence for sinusitis. 6. No evidence for facial bone fracture. Electronically authenticated by: KELLEE CANO Date: 2023-03-08 20:44 Normal [facility] CBC AUTO DIFFon 03-02-2023 BASO # 0.0 103/ul Normal 0.0-0.1 [facility] Comment on above: Performed By: #### I NSULIN #### [facility] [address] [address] [address] Milad Garcia Basophils/100 WBC (Bld) 0.4 % Normal 0.2-2.0 [facility] Comment on above: Performed By: #### I NSULIN #### [facility] [address] [place] [address] Dr. Milad Garcia EO # 0.1 103/ul Normal 0.0-0.7 [facility] Comment on above: Performed By: #### I NSULIN #### [facility] [address] [place] [address] Dr. Milad Garcia Eosinophils/100 WBC (Bld) 1.3 % Normal 0.9-7.0 [facility] Comment on above: Performed By: #### I NSULIN #### [facility] [address] [place] [address] Dr. Milad Garcia Erythrocyte distribution width (RBC) [Ratio] 12.9 % Normal 11.0-15.0 [facility] Comment on above: Performed By: #### I NSULIN #### [facility] [address] [place] [address] Dr. Milad Garcia Hematocrit (Bld) [Volume fraction] 40.2 % Normal 36.0-48.0 [facility] Comment on above: Performed By: #### I NSULIN #### [facility] [address] [place] [address] Dr. Milad Garcia Hemoglobin (Bld) [Mass/Vol] 13.6 g/dL Normal 12.0-16.0 [facility] Comment on above: Performed By: #### I NSULIN #### [facility] [address] [place] [address] Dr. Milad Garcia IG # 0.02 10e3/ul Normal 0.00-0.03 [facility] Comment on above: Performed By: #### I NSULIN #### [facility] [address] [place] [address] Dr. Milad Garcia IG % 0.3 % Normal 0.0-0.5 [facility] Comment on above: Performed By: #### I NSULIN #### [facility] [address] [address] [address] Milad Garcia LYMPH # 2.8 103/ul Normal 1.2-3.8 [facility] Comment on above: Performed By: #### I NSULIN #### [facility] [address] [address] [address] Milad Garcia Lymphocytes/100 WBC (Bld) 37.5 % Normal 20.5-60.0 [facility] Comment on above: Performed By: #### I NSULIN #### [facility] [address] [place] [address] Dr. Milad Garcia MANUAL DIFF REQ NO Normal [facility] Comment on above: Performed By: #### I NSULIN #### [facility] [address] [place] [address] Dr. Milad Garcia MCH (RBC) [Entitic mass] 31.6 pg Normal 26.7-34.0 [facility] Comment on above: Performed By: #### I NSULIN #### [facility] [address] [place] [address] Dr. Milad Garcia MCHC (RBC) [Mass/Vol] 33.8 g/dL Normal 29.9-35.2 [facility] Comment on above: Performed By: #### I NSULIN #### [facility] [address] [place] [address] Dr. Milad Garcia MCV (RBC) [Entitic vol] 93.3 fL Normal 81.0-99.0 [facility] Comment on above: Performed By: #### I NSULIN #### [facility] [address] [place] [address] Dr. Milad Garcia MONO # 0.6 103/ul Normal 0.3-0.8 [facility] Comment on above: Performed By: #### I NSULIN #### [facility] [address] [place] [address] Dr. Milad Garcia Monocytes/100 WBC (Bld) 8.0 % Normal 1.7-12.0 [facility] Comment on above: Performed By: #### I NSULIN #### [facility] [address] [address] [address] Milad Garcia NEUT # 3.9 103/ul Normal 1.4-6.5 [facility] Comment on above: Performed By: #### I NSULIN #### [facility] [address] [address] [address] Milad Garcia Neutrophils/100 WBC (Bld) 52.5 % Normal 43.0-75.0 [facility] Comment on above: Performed By: #### I NSULIN #### [facility] [address] [address] [address] Milad Garcia Platelet mean volume (Bld) [Entitic vol] 9.4 fL Critically low 9.5-13.5 [facility] Comment on above: Performed By: #### I NSULIN #### [facility] [address] [place] [address] Dr. Milad Garcia PLT 252 103/ul Normal 150-450 [facility] Comment on above: Performed By: #### I NSULIN #### [facility] [address] [place] [address] Dr. Milad Garcia RBC 4.31 106/ul Normal 4.20-5.40 [facility] Comment on above: Performed By: #### I NSULIN #### [facility] [address] [place] [address] Dr. Milad Garcia WBC 7.4 103/ul Normal 4.0-11.0 [facility] Comment on above: Performed By: #### I NSULIN #### [facility] [address] [place] [address] Dr. Milad Garcia INSULINon 02-02-2023 Insulin 15.5 uIU/mL Normal 2.6-24.9 [facility] Comment on above: Performed By: #### I NSULIN #### [facility] [address] [place] [address] Dr. Milad Garcia OCC BLD IMMUNO SCREENon OCCULT BLOOD Positive Abnormal NEGATIVE [facility] Comment on above: Performed By: #### I NSULIN #### [facility] [address] [place] [address] Dr. Milad Garcia CBC AUTO DIFFon 01-31-2023 BASO # 0.0 103/ul Normal 0.0-0.1 [facility] Comment on above: Performed By: #### I NSULIN #### [facility] [address] [place] [address] Dr. Milad Garcia Basophils/100 WBC (Bld) 0.1 % Critically low 0.2-2.0 [facility] Comment on above: Performed By: #### I NSULIN #### [facility] [address] [place] [address] Dr. Milad Garcia EO # 0.0 103/ul Normal 0.0-0.7 [facility] Comment on above: Performed By: #### I NSULIN #### [facility] [address] [place] [address] Dr. Milad Garcia Eosinophils/100 WBC (Bld) 0.0 % Critically low 0.9-7.0 [facility] Comment on above: Performed By: #### I NSULIN #### [facility] [address] [place] [address] Dr. Milad Garcia Erythrocyte distribution width (RBC) [Ratio] 13.1 % Normal 11.0-15.0 [facility] Comment on above: Performed By: #### I NSULIN #### [facility] [address] [place] [address] Dr. Milad Garcia Hematocrit (Bld) [Volume fraction] 40.2 % Normal 36.0-48.0 [facility] Comment on above: Performed By: #### I NSULIN #### [facility] [address] [place] [address] Dr. Milad Garcia Hemoglobin (Bld) [Mass/Vol] 13.8 g/dL Normal 12.0-16.0 [facility] Comment on above: Performed By: #### I NSULIN #### [facility] [address] [place] [address] Dr. Milad Garcia IG # 0.07 10e3/ul Critically high 0.00-0.03 [facility] Comment on above: Performed By: #### I NSULIN #### [facility] [address] [place] [address] Dr. Milad Garcia IG % 0.4 % Normal 0.0-0.5 [facility] Comment on above: Performed By: #### I NSULIN #### [facility] [address] [place] [address] Dr. Milad Garcia LYMPH # 3.0 103/ul Normal 1.2-3.8 [facility] Comment on above: Performed By: #### I NSULIN #### [facility] [address] [place] [address] Dr. Milad Garcia Lymphocytes/100 WBC (Bld) 18.7 % Critically low 20.5-60.0 [facility] Comment on above: Performed By: #### I NSULIN #### [facility] [address] [place] [address] Dr. Milad Garcia MANUAL DIFF REQ NO Normal [facility] Comment on above: Performed By: #### I NSULIN #### [facility] [address] [place] [address] Dr. Milad Garcia MCH (RBC) [Entitic mass] 31.7 pg Normal 26.7-34.0 [facility] Comment on above: Performed By: #### I NSULIN #### [facility] [address] [place] [address] Dr. Milad Garcia MCHC (RBC) [Mass/Vol] 34.3 g/dL Normal 29.9-35.2 [facility] Comment on above: Performed By: #### I NSULIN #### [facility] [address] [place] [address] Dr. Milad Garcia MCV (RBC) [Entitic vol] 92.4 fL Normal 81.0-99.0 [facility] Comment on above: Performed By: #### I NSULIN #### [facility] [address] [place] [address] Dr. Milad Garcia MONO # 1.0 103/ul Critically high 0.3-0.8 [facility] Comment on above: Performed By: #### I NSULIN #### [facility] [address] [place] [address] Dr. Milad Garcia Monocytes/100 WBC (Bld) 5.9 % Normal 1.7-12.0 [facility] Comment on above: Performed By: #### I NSULIN #### [facility] [address] [place] [address] Dr. Milad Garcia NEUT # 12.0 103/ul Critically high 1.4-6.5 [facility] Comment on above: Performed By: #### I NSULIN #### [facility] [address] [place] [address] Dr. Milad Garcia Neutrophils/100 WBC (Bld) 74.9 % Normal 43.0-75.0 [facility] Comment on above: Performed By: #### I NSULIN #### [facility] [address] [place] [address] Dr. Milad Garcia Platelet mean volume (Bld) [Entitic vol] 10.0 fL Normal 9.5-13.5 [facility] Comment on above: Performed By: #### I NSULIN #### [facility] [address] [place] [address] Dr. Milad Garcia PLT 300 103/ul Normal 150-450 [facility] Comment on above: Performed By: #### I NSULIN #### [facility] [address] [place] [address] Dr. Milad Garcia RBC 4.35 106/ul Normal 4.20-5.40 [facility] Comment on above: Performed By: #### I NSULIN #### [facility] [address] [place] [address] Dr. Milad Garcia WBC 16.0 103/ul Critically high 4.0-11.0 [facility] Comment on above: Performed By: #### I NSULIN #### [facility] [address] [place] [address] Dr. Milad Garcia FREE THYROXINE INDEX T7on FTI 1.28 Critically low 1.30-4.50 [facility] Comment on above: Performed By: #### L IPID, TSH, CMP, T7 #### [facility] [address] [address] [address] Milad Garcia T3U 32.0 % Normal 30.0-39.0 [facility] Comment on above: Performed By: #### L IPID, TSH, CMP, T7 #### [facility] [address] [address] [address] Milad Garcia T4 [Mass/Vol] 4.00 ug/dL Critically low 4.80-13.90 [facility] Comment on above: Performed By: #### L IPID, TSH, CMP, T7 #### [facility] [address] [address] [address] Milad Garcia GLYCOHEMOGLOBIN A1Con 2022 ADA RECOMMENDATION SEE BELOW Normal [facility] Comment on above: Result Comment: ADA RECOMMENDED LIMIT 4.0 - 6.0 ADA THERAPEUTIC TARGET < 7.0 ACTION SUGGESTED > 7.0 Performed By: #### A 1C #### [facility] [address] [address] [address] Milad Garcia Glucose [Mass/Vol] 103 mg/dL Normal [facility] Comment on above: Performed By: #### A 1C #### [facility] [address] [address] [address] Milad Garcia HbA1c (Bld) [Mass fraction] 5.2 % Normal 4.5-6.2 [facility] Comment on above: Performed By: #### A 1C #### [facility] [address] [address] [address] Milad Garcia IRONon 01-31-2023 Iron [Mass/Vol] 88.0 ug/dL Normal 50.0-170.0 [facility] Comment on above: Performed By: #### I SATNAM #### [facility] [address] [address] [address] Milad Garcia LIPID PROFILEon 01-31-2023 CHOL-HDL RATIO NORM SEE BELOW Normal [facility] Comment on above: Result Comment: 3.3 - 4.4 LOW RISK 4.4 - 7.1 AVERAGE RISK 7.1 - 11.0 MODERATE RISK >11.0 HIGH RISK Performed By: #### L IPID, TSH, CMP, T7 #### [facility] [address] [address] [address] Milad Garcia Cholesterol [Mass/Vol] 194 mg/dL Normal <=200 [facility] Comment on above: Performed By: #### L IPID, TSH, CMP, T7 #### [facility] [address] [address] [address] Milad Garcia Cholesterol in HDL [Mass/Vol] 73 mg/dL Critically high 40-60 [facility] Comment on above: Performed By: #### L IPID, TSH, CMP, T7 #### [facility] [address] [address] [address] Milad Garcia Cholesterol in LDL [Mass/Vol] 105.0 mg/dL Normal [facility] Comment on above: Performed By: #### L IPID, TSH, CMP, T7 #### [facility] [address] [address] [address] Milad Garcia Cholesterol.total/Ch olesterol in HDL [Mass ratio] 2.7 {ratio} Normal [facility] Comment on above: Performed By: #### L IPID, TSH, CMP, T7 #### [facility] [address] [address] [address] Milad Garcia HDL NORMAL > or = 60 mg/dl - LOW CARDIOVASCULAR RISK <40 mg/dl - HIGH CARDIOVASCULAR RISK Normal [facility] Comment on above: Performed By: #### L IPID, TSH, CMP, T7 #### [facility] [address] [address] [address] Milad Garcia LDL CALC NORMAL SEE BELOW Normal [facility] Comment on above: Result Comment: <100 mg/dl OPTIMAL 100 - 129 mg/dl NEAR OR ABOVE OPTIMAL 130 - 159 mg/dl BORDERLINE HIGH 160 - 189 mg/dl HIGH >190 mg/dl VERY HIGH Performed By: #### L IPID, TSH, CMP, T7 #### [facility] [address] [address] [address] Milad Garcia Triglyceride [Mass/Vol] 80 mg/dL Normal <=150 [facility] Comment on above: Performed By: #### L IPID, TSH, CMP, T7 #### [facility] [address] [address] [address] Milad Garcia VLDL CALC 16.0 mg/dL Normal [facility] Comment on above: Performed By: #### L IPID, TSH, CMP, T7 #### [facility] [address] [address] [address] Milad Garcia PROF 14(COMP METB)on 023 Albumin [Mass/Vol] 4.0 g/dL Normal 3.4-5.0 [facility] Comment on above: Performed By: #### L IPID, TSH, CMP, T7 #### [facility] [address] [address] [address] Milad Garcia Albumin/Globulin [Mass ratio] 1.4 {ratio} Normal [facility] Comment on above: Performed By: #### L IPID, TSH, CMP, T7 #### [facility] [address] [address] [address] Milad Garcia ALP [Catalytic activity/Vol] 61 U/L Normal 46-116 [facility] Comment on above: Performed By: #### L IPID, TSH, CMP, T7 #### [facility] [address] [address] [address] Milad Garcia ALT [Catalytic activity/Vol] 20 U/L Normal 14-59 [facility] Comment on above: Performed By: #### L IPID, TSH, CMP, T7 #### [facility] [address] [address] [address] Milad Garcia Anion gap [Moles/Vol] 14.2 mmol/L Normal [facility] Comment on above: Performed By: #### L IPID, TSH, CMP, T7 #### [facility] [address] [address] [address] Milad Garcia AST [Catalytic activity/Vol] 7 U/L Critically low 15-37 [facility] Comment on above: Performed By: #### L IPID, TSH, CMP, T7 #### [facility] [address] [address] [address] Milad Garcia Bilirubin [Mass/Vol] 0.3 mg/dL Normal 0.2-1.0 [facility] Comment on above: Performed By: #### L IPID, TSH, CMP, T7 #### [facility] [address] [address] [address] Milad Garcia Calcium [Mass/Vol] 9.0 mg/dL Normal 8.5-10.1 [facility] Comment on above: Performed By: #### L IPID, TSH, CMP, T7 #### [facility] [address] [address] [address] Milad Garcia Chloride [Moles/Vol] 106 mmol/L Normal 98-107 [facility] Comment on above: Performed By: #### L IPID, TSH, CMP, T7 #### [facility] [address] [address] [address] Milad Garcia CO2 [Moles/Vol] 25.6 mmol/L Normal 21.0-32.0 [facility] Comment on above: Performed By: #### L IPID, TSH, CMP, T7 #### [facility] [address] [place] [address] Dr. Milad Garcia Creatinine [Mass/Vol] 0.87 mg/dL Normal 0.55-1.02 [facility] Comment on above: Performed By: #### L IPID, TSH, CMP, T7 #### [facility] [address] [place] [address] Dr. Milad Garcia EGFR-AF POLISH >60 Normal >=60 [facility] Comment on above: Performed By: #### L IPID, TSH, CMP, T7 #### [facility] [address] [place] [address] Dr. Milad Garcia EGFR-NON AF POLISH >60 Normal >=60 [facility] Comment on above: Performed By: #### L IPID, TSH, CMP, T7 #### [facility] [address] [address] [address] Milad Garcia Globulin (S) [Mass/Vol] 2.9 g/dL Normal [facility] Comment on above: Performed By: #### L IPID, TSH, CMP, T7 #### [facility] [address] [address] [address] Milad Garcia Glucose [Mass/Vol] 90 mg/dL Normal 74-106 [facility] Comment on above: Performed By: #### L IPID, TSH, CMP, T7 #### [facility] [address] [address] [address] Milad Garcia Potassium [Moles/Vol] 3.8 mmol/L Normal 3.5-5.1 [facility] Comment on above: Performed By: #### L IPID, TSH, CMP, T7 #### [facility] [address] [place] [address] Dr. Milad Garcia Protein [Mass/Vol] 6.9 g/dL Normal 6.4-8.2 [facility] Comment on above: Performed By: #### L IPID, TSH, CMP, T7 #### [facility] [address] [address] [address] Milad Garcia Sodium [Moles/Vol] 142 mmol/L Normal 136-145 [facility] Comment on above: Performed By: #### L IPID, TSH, CMP, T7 #### [facility] [address] [address] [address] Milad Garcia Urea nitrogen [Mass/Vol] 15.0 mg/dL Normal 7.0-18.0 [facility] Comment on above: Performed By: #### L IPID, TSH, CMP, T7 #### [facility] [address] [address] [address] Milad Garcia Urea nitrogen/Creatinine [Mass ratio] 17.2 mg/mg Normal [facility] Comment on above: Performed By: #### L IPID, TSH, CMP, T7 #### [facility] [address] [address] [address] Milad Garcia TSHon 01-31-2023 TSH 0.493 uIU/mL Normal 0.358-3.740 [facility] Comment on above: Performed By: #### L IPID, TSH, CMP, T7 #### [facility] [address] [place] [address] Dr. Milad Garcia CBC AUTO DIFFon 11-27-2022 BASO # 0.0 103/ul Normal 0.0-0.1 [facility] Comment on above: Performed By: #### C BC #### [facility] [address] [place] [address] Dr. Milad Garcia Basophils/100 WBC (Bld) 0.4 % Normal 0.2-2.0 [facility] Comment on above: Performed By: #### C BC #### [facility] [address] [place] [address] Dr. Milad Garcia EO # 0.1 103/ul Normal 0.0-0.7 [facility] Comment on above: Performed By: #### C BC #### [facility] [address] [place] [address] Dr. Milad Garcia Eosinophils/100 WBC (Bld) 0.9 % Normal 0.9-7.0 [facility] Comment on above: Performed By: #### C BC #### [facility] [address] [place] [address] Dr. Milad Garcia Erythrocyte distribution width (RBC) [Ratio] 13.0 % Normal 11.0-15.0 [facility] Comment on above: Performed By: #### C BC #### [facility] [address] [place] [address] Dr. Milad Garcia Hematocrit (Bld) [Volume fraction] 42.0 % Normal 36.0-48.0 [facility] Comment on above: Performed By: #### C BC #### [facility] [address] [place] [address] Dr. Milad Garcia Hemoglobin (Bld) [Mass/Vol] 13.3 g/dL Normal 12.0-16.0 [facility] Comment on above: Performed By: #### C BC #### [facility] [address] [place] [address] Dr. Milad Garcia IG # 0.02 10e3/ul Normal 0.00-0.03 [facility] Comment on above: Performed By: #### C BC #### [facility] [address] [place] [address] Dr. Milad Garcia IG % 0.2 % Normal 0.0-0.5 [facility] Comment on above: Performed By: #### C BC #### [facility] [address] [place] [address] Dr. Milad Garcia LYMPH # 2.8 103/ul Normal 1.2-3.8 [facility] Comment on above: Performed By: #### C BC #### [facility] [address] [place] [address] Dr. Milad Garcia Lymphocytes/100 WBC (Bld) 32.2 % Normal 20.5-60.0 [facility] Comment on above: Performed By: #### C BC #### [facility] [address] [place] [address] Dr. Milad Garcia MANUAL DIFF REQ NO Normal [facility] Comment on above: Performed By: #### C BC #### [facility] [address] [place] [address] Dr. Milad Garcia MCH (RBC) [Entitic mass] 31.5 pg Normal 26.7-34.0 [facility] Comment on above: Performed By: #### C BC #### [facility] [address] [place] [address] Dr. Milad Garcia MCHC (RBC) [Mass/Vol] 31.7 g/dL Normal 29.9-35.2 [facility] Comment on above: Performed By: #### C BC #### [facility] [address] [place] [address] Dr. Milad Garcia MCV (RBC) [Entitic vol] 99.5 fL Critically high 81.0-99.0 [facility] Comment on above: Performed By: #### C BC #### [facility] [address] [place] [address] Dr. Milad Garcia MONO # 0.6 103/ul Normal 0.3-0.8 [facility] Comment on above: Performed By: #### C BC #### [facility] [address] [place] [address] Dr. Milad Garcia Monocytes/100 WBC (Bld) 6.8 % Normal 1.7-12.0 [facility] Comment on above: Performed By: #### C BC #### [facility] [address] [place] [address] Dr. Milad Garcia NEUT # 5.1 103/ul Normal 1.4-6.5 [facility] Comment on above: Performed By: #### C BC #### [facility] [address] [place] [address] Dr. Milad Garcia Neutrophils/100 WBC (Bld) 59.5 % Normal 43.0-75.0 [facility] Comment on above: Performed By: #### C BC #### [facility] [address] [place] [address] Dr. Milad Garcia Platelet mean volume (Bld) [Entitic vol] 10.0 fL Normal 9.5-13.5 [facility] Comment on above: Performed By: #### C BC #### [facility] [address] [place] [address] Dr. Milad Garcia PLT 247 103/ul Normal 150-450 [facility] Comment on above: Performed By: #### C BC #### [facility] [address] [place] [address] Dr. Milad Garcia RBC 4.22 106/ul Normal 4.20-5.40 [facility] Comment on above: Performed By: #### C BC #### [facility] [address] [place] [address] Dr. Milad Garcia WBC 8.6 103/ul Normal 4.0-11.0 [facility] Comment on above: Performed By: #### C BC #### [facility] [address] [place] [address] Dr. Milad Garcia LIPASEon 11-27-2022 Lipase [Catalytic activity/Vol] 50.0 U/L Critically low 73.0-393.0 [facility] Comment on above: Performed By: #### I NSULIN #### [facility] [address] [place] [address] Dr. Milad Garcia PROF 14(COMP METB)on 023 Albumin [Mass/Vol] 3.7 g/dL Normal 3.4-5.0 [facility] Comment on above: Performed By: #### I NSULIN #### [facility] [address] [place] [address] Dr. Milad Garcia Albumin/Globulin [Mass ratio] 1.3 {ratio} Normal [facility] Comment on above: Performed By: #### I NSULIN #### [facility] [address] [place] [address] Dr. Milad Garcia ALP [Catalytic activity/Vol] 72 U/L Normal 46-116 [facility] Comment on above: Performed By: #### I NSULIN #### [facility] [address] [place] [address] Dr. Milad Garcia ALT [Catalytic activity/Vol] 14 U/L Normal 14-59 [facility] Comment on above: Performed By: #### I NSULIN #### [facility] [address] [place] [address] Dr. Milad Garcia Anion gap [Moles/Vol] 11.5 mmol/L Normal [facility] Comment on above: Performed By: #### I NSULIN #### [facility] [address] [place] [address] Dr. Milad Garcia AST [Catalytic activity/Vol] 13 U/L Critically low 15-37 [facility] Comment on above: Performed By: #### I NSULIN #### [facility] [address] [place] [address] Dr. Milad Garcia Bilirubin [Mass/Vol] 0.3 mg/dL Normal 0.2-1.0 [facility] Comment on above: Performed By: #### I NSULIN #### [facility] [address] [place] [address] Dr. Milad Garcia Calcium [Mass/Vol] 8.8 mg/dL Normal 8.5-10.1 [facility] Comment on above: Performed By: #### I NSULIN #### [facility] [address] [address] [address] Milad Garcia Chloride [Moles/Vol] 105 mmol/L Normal 98-107 [facility] Comment on above: Performed By: #### I NSULIN #### [facility] [address] [address] [address] Milad Garcia CO2 [Moles/Vol] 26.1 mmol/L Normal 21.0-32.0 [facility] Comment on above: Performed By: #### I NSULIN #### [facility] [address] [place] [address] Dr. Milad Garcia Creatinine [Mass/Vol] 0.78 mg/dL Normal 0.55-1.02 [facility] Comment on above: Performed By: #### I NSULIN #### [facility] [address] [place] [address] Dr. Milad Garcia EGFR-AF POLISH >60 Normal >=60 [facility] Comment on above: Performed By: #### I NSULIN #### [facility] [address] [place] [address] Dr. Milad Garcia EGFR-NON AF POLISH >60 Normal >=60 [facility] Comment on above: Performed By: #### I NSULIN #### [facility] [address] [place] [address] Dr. Milad Garcia Globulin (S) [Mass/Vol] 2.9 g/dL Normal [facility] Comment on above: Performed By: #### I NSULIN #### [facility] [address] [address] [address] Milad Garcia Glucose [Mass/Vol] 112 mg/dL Critically high 74-106 [facility] Comment on above: Performed By: #### I NSULIN #### [facility] [address] [place] [address] Dr. Milad Garcia Potassium [Moles/Vol] 3.6 mmol/L Normal 3.5-5.1 [facility] Comment on above: Performed By: #### I NSULIN #### [facility] [address] [address] [address] Milad Garcia Protein [Mass/Vol] 6.6 g/dL Normal 6.4-8.2 [facility] Comment on above: Performed By: #### I NSULIN #### [facility] [id number] Milad Garcia Sodium [Moles/Vol] 139 mmol/L Normal 136-145 [facility] Comment on above: Performed By: #### I NSULIN #### [facility] [address] [address] [address] Milad Garcia Urea nitrogen [Mass/Vol] 10.0 mg/dL Normal 7.0-18.0 [facility] Comment on above: Performed By: #### I NSULIN #### [facility] [address] [address] [address] Milad Garcia Urea nitrogen/Creatinine [Mass ratio] 12.8 mg/mg Normal [facility] Comment on above: Performed By: #### I NSULIN #### [facility] [address] [address] [address] Milad Garcia TROPONIN, HIGH SENSITIVITYon 11-27-2022 HSTROP <4.0 Normal 4.0-51.3 [facility] Comment on above: Result Comment: CUT- OFF POINTS HAVE BEEN ESTABLISHED BASED ON THE FOURTH UNIVERSAL DEFINITIONS OF MYOCARDIAL INFARCTION. THE UPPER REFERENCE LIMIT (URL) OF TROPONIN, DEFINED THE 99TH PERCENTILE OF cTnI DISTRIBUTION IN A REFERENCE POPULATION, HAS BEEN CONFIRMED THE DECISION THRESHOLD FOR OK DIAGNOSIS. Performed By: #### L IPA, HSTROPN, CMP #### [facility] [address] [address] [address] Milad Garcia XR RIBS LT PA Cristian 3 XR RIBS LT PA CH EXAMINATION: XR RIBS LT PA CH HISTORY: Pain COMPARISON: X-rays 05/22/2022 TECHNIQUE: PA chest and 6 views of the ribs FINDINGS: The lung parenchyma is free of consolidation or infiltrate. No pneumothorax or pleural effusion. The cardiac, mediastinal and hilar contours are normal. The visualized osseous structures exhibit no gross abnormality. IMPRESSION: No visualized abnormality Electronically authenticated by: DANIS ORTEGA Date: 2022-11-27 17:27 Normal [facility] MG MAMM RT DIAG FUon 023 MG MAMM RT DIAG FU Patient: AURORA MONTAGUE Exam Date: 11/07/2022 : 1975 Gender:F Ordering : DR PADMINI GALINDO . Admission #: [id number] Family : Order #: [id number] CLICK HERE TO VIEW EXAM RADIOLOGY REPORT PROCEDURE: MAMMOGRAM RIGHT DIAGNOSTIC DIGITAL FOLLOW UP, 11/07/2022, 10:21 ULTRASOUND BREAST RIGHT LIMITED, 11/07/2022, 10:53 COMPARISON: MG MAMM DX 3D RT CAD, 08/19/2021. MAMMO POST BIOPSY RIGHT, 02/13/2021. MG MAMM SCREEN DANA W CAD, 07/20/2017. MG MAMM SCREEN 3D DANA CAD, 09/02/2022. INDICATIONS: Abnormal findings on diagnostic imaging of breast Calculator Name NCI Breast Cancer Risk Assessment Tool 5 Year Breast Cancer Risk 1.40% Lifetime Breast Cancer Risk 12.50% Personal Breast Cancer No Personal Ovarian Cancer No Treatments None Family Cancers Sister with cervical cancer at age 42; Sister with kidney cancer at age 59; Father with lung cancer at age 72. LOCATION: [facility] BREAST COMPOSITION: Heterogeneously dense,which may obscure small masses. FINDINGS: DIAGNOSTIC CATEGORY 2--BENIGN FINDING: RIGHT BREAST: Spot magnification views demonstrate persistence of asymmetries within the upper-outer quadrant. Ultrasound evaluation demonstrates a few benign-appearing small cysts and a few islands of fibroglandular tissue. No suspicious findings. Annual screening mammography recommended. RECOMMENDATIONS: ROUTINE MAMMOGRAM AND CLINICAL EVALUATION IN 12 MONTHS. PLEASE NOTE: A NORMAL MAMMOGRAM DOES NOT EXCLUDE THE POSSIBILITY OF BREAST CANCER. A CLINICALLY SUSPICIOUS PALPABLE LUMP SHOULD BE BIOPSIED. Dictated by: Patience Hernandez M.D. on 11/07/2022 at 11:01 Approved by: Patience Hernandez M.D. on 11/07/2022 at 11:04 Normal [facility] US BREAST RIGHT LIMITEDon US BREAST RIGHT LIMITED Patient: AURORA MONTGAUEJuan J Exam Date: 11/07/2022 : 1975 Gender:F Ordering : DR PADMINI GALINDO . Admission #: [id number] Family : Order #: [id number] CLICK HERE TO VIEW EXAM RADIOLOGY REPORT PROCEDURE: MAMMOGRAM RIGHT DIAGNOSTIC DIGITAL FOLLOW UP, 11/07/2022, 10:21 ULTRASOUND BREAST RIGHT LIMITED, 11/07/2022, 10:53 COMPARISON: MG MAMM DX 3D RT CAD, 08/19/2021. MAMMO POST BIOPSY RIGHT, 02/13/2021. MG MAMM SCREEN DANA W CAD, 07/20/2017. MG MAMM SCREEN 3D DANA CAD, 09/02/2022. INDICATIONS: Abnormal findings on diagnostic imaging of breast Calculator Name NCI Breast Cancer Risk Assessment Tool 5 Year Breast Cancer Risk 1.40% Lifetime Breast Cancer Risk 12.50% Personal Breast Cancer No Personal Ovarian Cancer No Treatments None Family Cancers Sister with cervical cancer at age 42; Sister with kidney cancer at age 59; Father with lung cancer at age 72. LOCATION: [facility] BREAST COMPOSITION: Heterogeneously dense,which may obscure small masses. FINDINGS: DIAGNOSTIC CATEGORY 2--BENIGN FINDING: RIGHT BREAST: Spot magnification views demonstrate persistence of asymmetries within the upper-outer quadrant. Ultrasound evaluation demonstrates a few benign-appearing small cysts and a few islands of fibroglandular tissue. No suspicious findings. Annual screening mammography recommended. RECOMMENDATIONS: ROUTINE MAMMOGRAM AND CLINICAL EVALUATION IN 12 MONTHS. PLEASE NOTE: A NORMAL MAMMOGRAM DOES NOT EXCLUDE THE POSSIBILITY OF BREAST CANCER. A CLINICALLY SUSPICIOUS PALPABLE LUMP SHOULD BE BIOPSIED. Dictated by: Patience Hernandez M.D. on 11/07/2022 at 11:01 Approved by: Patience Hernandez M.D. on 11/07/2022 at 11:04 Normal [facility] XR CSPINE MIN 4 VIEWSon 11-0 XR CSPINE MIN 4 VIEWS EXAMINATION: XR CSPINE MIN 4 VIEWS HISTORY: Neck pain COMPARISON: 03/24/2019 FINDINGS: BONES: Loss of normal cervical lordosis with no acute fracture or spondylolisthesis. Anterior fusion C4-C7 with no mechanical failure. Degenerative spondylosis and facet osteoarthropathy DISC SPACES: Interbody fusion C4-C7 PARASPINOUS: Negative. No paraspinous abnormality is seen. OTHER: Negative. IMPRESSION: Stable anterior fusion C4-C7 Electronically authenticated by: DANIS BERGER Date: 2022-09-03 18:43 Normal [facility] MG MAMM SCREEN 3D DANA CADon 09-02-2022 MG MAMM SCREEN 3D DANA CAD Patient: AURORA MONTAGUE Exam Date: 09/02/2022 : 1975 Gender:F Ordering : DR PADMINI GALINDO . Admission #: [id number] Family : Order #: [id number] CLICK HERE TO VIEW EXAM RADIOLOGY REPORT PROCEDURE: MAMMOGRAM SCREENING 3D BILATERAL CAD COMPARISON: MG MAMM DIAGNOSTIC 3D DANA CAD, 02/08/2021. MAMMO POST BIOPSY RIGHT, 02/13/2021. MG MAMM DX 3D RT CAD, 08/19/2021. INDICATIONS: Screening mammography Calculator Name NCI Breast Cancer Risk Assessment Tool 5 Year Breast Cancer Risk 1.40% Lifetime Breast Cancer Risk 12.50% Personal Breast Cancer No Personal Ovarian Cancer No Treatments None Family Cancers Sister with cervical cancer at age 42; Sister with kidney cancer at age 59; Father with lung cancer at age 72. LOCATION: [facility] BREAST COMPOSITION: Heterogeneously dense,which may obscure small masses. FINDINGS: DIAGNOSTIC CATEGORY 0--INCOMPLETE: NEED ADDITIONAL IMAGING EVALUATION. Scattered benign-appearing calcifications are present. Scattered benign-appearing lymph nodes are present. RIGHT BREAST: Increased nodularity identified in the upper-outer quadrant. Spot compression and ultrasound follow-up is recommended. Again identified is an area asymmetric ill-defined and curvilinear density in the lower inner quadrant previously biopsied LEFT BREAST: No significant suspicious finding. RECOMMENDATIONS: ADDITIONAL MAMMOGRAPHIC VIEWS REQUIRED: RIGHT BREAST - spot compression views CC and MLO projection ULTRASOUND: RIGHT BREAST PLEASE NOTE: A NORMAL MAMMOGRAM DOES NOT EXCLUDE THE POSSIBILITY OF BREAST CANCER. A CLINICALLY SUSPICIOUS PALPABLE LUMP SHOULD BE BIOPSIED. Dictated by: Danis Berger MD on 09/03/2022 at 08:21 Approved by: Danis Berger MD on 09/03/2022 at 08:25 Normal [facility] XR CHEST 2 Von 05-22-2022 XR CHEST 2 V EXAMINATION: XR CHEST 2 V HISTORY: Cough COMPARISON: 10/14/2020 TECHNIQUE: PA and lateral FINDINGS: LUNGS: No significant pulmonary parenchymal abnormalities. VASCULATURE: No increased pulmonary vasculature. PLEURA: No pneumothorax, effusion, or pleural thickening. CARDIAC: No cardiomegaly or cardiac silhouette abnormality. MEDIASTINUM: No visible mass or adenopathy. BONES: No fracture or visible bone lesion. Cervical fusion hardware OTHER: Negative. IMPRESSION: No acute disease. Electronically authenticated by: DANIS BERGER Date: 2022-05-22 16:45 Normal [facility] PAP ACOG PANEL 2: 30 to 65on 04-25-2022 . . Normal [facility] Comment on above: Result Comment: Perf ormed at: WB Performed By: #### I NSULIN #### [facility] [address] [place] [address] Dr. Milad Garcia Age Gdln ACOG Testing 30-65 Normal [facility] Comment on above: Performed By: #### I NSULIN #### [facility] [address] [place] [address] Dr. Milad Garcia DIAGNOSIS: Comment Normal [facility] Comment on above: Result Comment: NEGA TIVE FOR INTRAEPITHELIAL LESION OR MALIGNANCY. THIS SPECIMEN WAS RESCREENED PART OF OUR MANAGER INFUSION PROGRAM. Performed at: WB Performed By: #### I NSULIN #### [facility] [address] [place] [address] Dr. Milad Garcia HPV Aptima Negative Normal Negative [facility] Comment on above: Result Comment: This nucleic acid amplification test detects fourteen high-risk HPV types (16,18,31,33,35,39,45,51,52,56,58,59,66,68) without differentiation. Performed at: =G Performed By: #### I NSULIN #### [facility] [address] [place] [address] Dr. Milad Garcia Methodology: Comment Normal [facility] Comment on above: Result Comment: This liquid based ThinPrep(R) pap test was screened with the use of an image guided system. Performed at: WB Performed By: #### I NSULIN #### [facility] [address] [place] [address] Dr. Milad Garcia Note: Comment Normal [facility] Comment on above: Result Comment: The Pap smear is a screening test designed to aid in the detection of premalignant and malignant conditions of the uterine cervix. It is not a diagnostic procedure and should not be used as the sole means of detecting cervical cancer. Both false-positive and false-negative reports do occur. . Performed at: WB Performed By: #### I NSULIN #### [facility] [address] [address] [address] Milad Garcia Performed by: Comment Normal [facility] Comment on above: Result Comment: Micaela Fernandez, Vegetable Buncher (ASCP) Performed at: WB Performed By: #### I NSULIN #### [facility] [address] [address] [address] Milad Garcia QC reviewed by: Comment Normal [facility] Comment on above: Result Comment: Brando Ruby, Vegetable Buncher (ASCP) Performed at: WB Performed By: #### I NSULIN #### [facility] [address] [address] [address] Milad Garcia Specimen adequacy: Comment Normal [facility] Comment on above: Result Comment: Sati sfactory for evaluation. No endocervical component is identified. Performed at: WB Performed By: #### I NSULIN #### [facility] [address] [address] [address] Milad Garcia MRI LSPINE WO CONon 04-15-20 22 MRI LSPINE WO CON EXAMINATION: MRI LSPINE WO CON HISTORY: Degeneration of lumbar intervertebral disc , urinary incontinence, acute lumbar pain, bilateral leg pain and weakness COMPARISON: XR lumbar spine 04/04/2022, CT lumbar spine 07/31/2021 TECHNIQUE: A variety of imaging planes and parameters were utilized for visualization of suspected pathology. FINDINGS: For the purposes of numbering, sagittal T2 image # 7 extends from the T11-T12 vertebral body superiorly to the L2 level inferiorly. PARASPINAL AREA: Normal with no visible mass. BONES: No fracture, pars defect, or osseous lesion. CORD/CAUDA EQUINA: Normal caliber, contour, and signal intensity. DISC LEVELS: 12-L1: Moderate degenerative disc disease is present without visible neural impingement. L1-L2: Early degenerative disc disease is present without focal protrusion or neural impingement. L2-L3: Early degenerative disc disease is present without focal protrusion or neural impingement. L3-L4: No significant disc/facet abnormality, spinal stenosis, or foraminal stenosis. L4-L5: Moderate diffuse disc bulging without significant central canal narrowing. Mild foramen narrowing bilaterally. Minimal disc height reduction and mild degenerative facet arthropathy. L5-S1: Moderate marked foramen narrowing bilaterally without significant central canal narrowing. Mild diffuse disc bulging with small right paracentral and foraminal broad-based disc protrusion. Moderate degenerative facet arthropathy bilaterally. IMPRESSION: 1. L5-S1 moderate marked foramen narrowing bilaterally secondary to degenerative disc disease, right paracentral disc protrusion, and bilateral facet arthropathy. 2. L4-L5 mild foramen narrowing bilaterally secondary to mild degenerative disc disease and degenerative facet arthropathy. Electronically authenticated by: PATIENCE HERNANDEZ Date: 2022-04-15 10:32 Normal [facility] SYMPTOMATIC COVID-19 ANTIGEN on 04-09-2022 EUA Statement SEE BELOW Normal [facility] Comment on above: Result Comment: This test has not been FDA cleared or approved, but has been authorized by the FDA under an Emergency Use Authorization (EUA) for use by authorized laboratories certified under CLIA that meet the requirements to perform moderate or high complexity testing. This test has been authorized only for the detection of proteins from SARS-CoV-2, not for any other viruses or pathogens. The emergency use of this test is authorized for the duration of the declaration that circumstances exist justifying the authorization of emergency use of in vitro diagnostic tests for detection and/or diagnosis of Covid-19 under section 564(b)(1) of the Act, 21 U.S.C. 360bbb-3(b)(1), unless the declaration is terminated or authorization is revoked sooner. Performed By: #### I NSULIN #### [facility] [address] [place] [address] Dr. Milad Garcia SARS-CoV-2 (COVID-19) RNA TINO+probe Ql (Unsp spec) Positive Critically abnormal NEGATIVE [facility] Comment on above: Performed By: #### I NSULIN #### [facility] [address] [place] [address] Dr. Milad Garcia CULTURE URINEon 04-04-2022 CULTURE URINE Culture Observations: LIGHT GROWTH OF MIXED GENITAL JOSEFA. NO POTENTIAL PATHOGENS SEEN. Normal [facility] Comment on above: Performed By: #### I NSULIN #### [facility] [address] [address] [address] Milad Garcia UA RANDOM W/MICROSCOPICon BACTERIA TRACE Abnormal NONE SEEN [facility] Comment on above: Performed By: #### U AMIC #### [facility] [address] [place] [address] Dr. Milad Garcia Bilirubin Ql (U) Negative Normal NEGATIVE [facility] Comment on above: Performed By: #### U AMIC #### [facility] [address] [address] [address] Milad Garcia CAST NONE SEEN Normal NONE SEEN [facility] Comment on above: Performed By: #### U AMIC #### [facility] [address] [place] [address] Dr. Milad Garcia Clarity (U) CLEAR Normal CLEAR [facility] Comment on above: Performed By: #### U AMIC #### [facility] [address] [place] [address] Dr. Milad Garcia Color (U) LT. YELLOW Normal YELLOW [facility] Comment on above: Performed By: #### U AMIC #### [facility] [address] [place] [address] Dr. Milad Garcia Crystals LM Nom (Urine sed) NONE SEEN Normal NONE SEEN [facility] Comment on above: Performed By: #### U AMIC #### [facility] [address] [place] [address] Dr. Milad Garcia Epithelial cells LM Ql (Urine sed) RARE Normal NONE SEEN /RARE [facility] [facility] Comment on above: Performed By: #### U AMIC #### [facility] [address] [place] [address] Dr. Milad Garcia Glucose Ql (U) Negative Normal NEGATIVE [facility] Comment on above: Performed By: #### U AMIC #### [facility] [address] [place] [address] Dr. Milad Garcia Hemoglobin Ql (U) TRACE-INTACT Abnormal NEGATIVE [facility] Comment on above: Performed By: #### U AMIC #### [facility] [address] [place] [address] Dr. Milad Garcia Ketones Ql (U) Negative Normal NEGATIVE [facility] Comment on above: Performed By: #### U AMIC #### [facility] [address] [place] [address] Dr. Milad Garcia LEUKOCYTES Negative Normal NEGATIVE [facility] Comment on above: Performed By: #### U AMIC #### [facility] [address] [place] [address] Dr. Milad Garcia MUCOUS NONE SEEN Normal NONE SEEN [facility] Comment on above: Performed By: #### U AMIC #### [facility] [address] [place] [address] Dr. Milad Garcia Nitrite Ql (U) Negative Normal NEGATIVE [facility] Comment on above: Performed By: #### U AMIC #### [facility] [address] [place] [address] Dr. Milad Garcia pH (U) 6.5 [pH] Normal 5-9 [facility] Comment on above: Performed By: #### U AMIC #### [facility] [address] [place] [address] Dr. Milad Garcia RBC 0-2 Normal 0-2 [facility] Comment on above: Performed By: #### U AMIC #### [facility] [address] [place] [address] Dr. Milad Garcia SPEC GRAVITY <=1.005 Abnormal 1.005-<=1.02 5 [facility] Comment on above: Performed By: #### U AMIC #### [facility] [address] [place] [address] Dr. Milad Garcia UA PROTEIN Negative Normal NEGATIVE/ TRACE [facility] Comment on above: Performed By: #### U AMIC #### [facility] [address] [place] [address] Dr. Milad Garcia Urobilinogen Qn (U) 0.2 {Dior'U}/dL Normal 0.2 - 1. 0 [facility] Comment on above: Performed By: #### U AMIC #### [facility] [address] [place] [address] Dr. Milad Garcia WBC NONE SEEN Normal NONE SEEN [facility] Comment on above: Performed By: #### U [facility] #### [facility] [address] [address] [address] Milad Garcia XR LSPINE MIN 4 VIEWSon 06-0 XR LSPINE MIN 4 VIEWS EXAMINATION: XR LSPINE MIN 4 VIEWS HISTORY: Low back pain , acute; no known injury COMPARISON: No relevant comparison available. FINDINGS: BONES: No significant spondylosis, scoliosis, fracture, or visible bony lesion. DISC SPACES: T12-L1 moderate-marked disc space narrowing. L4-L5 mild narrowing. L5-S1 moderate narrowing. PARASPINOUS: Negative. No paraspinous abnormality is seen. OTHER: Negative. IMPRESSION: 1. No appreciable acute bone abnormality. 2. Degenerative disc disease of the lower lumbar spine likely contributing to patient's symptoms. Consider MRI for further evaluation. Electronically authenticated by: PATIENCE HERNANDEZ Date: 2022-04-04 17:30 Normal [facility] XR foot RT min 3V*on 022 XR foot RT min 3V* [facility] Other XR foot RT min 3V* [facility] [employer] Other XR foot RT min 3V* [address] [place] [address] [facility] Other XR foot RT min 3V* [place] [address] [facility] Other XR foot RT min 3V* XRay Report [facility] Other XR foot RT min 3V* Signed [facility] Other XR foot RT min 3V* Patient: Aurora Montague MR#: [id number] [facility] Other XR foot RT min 3V* [id number] [facility] Other XR foot RT min 3V* : 1975 Acct:[id number] [facility] Other XR foot RT min 3V* Age/Sex: 46 / F ADM Date: 11/14/21 [facility] Other XR foot RT min 3V* Loc: XDUCLY Room: Type: REG CLI [facility] Other XR foot RT min 3V* Attending Dr: José Miguel Beltran PA-C [facility] Other XR foot RT min 3V* Ordering Provider: José Miguel Beltran [facility] Other XR foot RT min 3V* Date of Service: 11/14/21 [facility] Other XR foot RT min 3V* XR/XR foot RT min 3V*: Injury of right foot, initial encounter [facility] Other XR foot RT min 3V* Copies to: José Miguel Beltran [facility] Other XR foot RT min 3V* RIGHT FOOT - 3 views [facility] Other XR foot RT min 3V* COMPARISON: None [facility] Other XR foot RT min 3V* Reason for exam: Proximal phalanx pain of the third, fourth and fifth digits status post injury for [facility] Other XR foot RT min 3V* 1 day. [facility] Other XR foot RT min 3V* No focal soft tissue abnormality is noted. No acute bony process is seen. Joint spaces appear [facility] Other XR foot RT min 3V* well-maintained. No bony erosions. [facility] Other XR foot RT min 3V* XR/XR foot RT min 3V* [facility] Other XR foot RT min 3V* IMPRESSION: [facility] Other XR foot RT min 3V* NO ACUTE BONY INJURY. 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 Normal [facility] Vital Signs Date Time Vital Sign Value Performing Clinician Facility 04-26-2024 11:55-0400 Diastolic blood pressure 67 mm[Hg] Ashley Shah MD Work Phone: [facility] 04-26-2024 11:55-0400 Heart rate 75 /min Ashley Shah MD Work Phone: [facility] 04-26-2024 11:55-0400 Respiratory rate 24 /min Ashley Shah MD Work Phone: [facility] 04-26-2024 11:55-0400 SaO2% (BldA) [Mass fraction] 100 % Ashley Shah MD Work Phone: [facility] 04-26-2024 11:55-0400 Systolic blood pressure 111 mm[Hg] Ashley Shah MD Work Phone: [facility] 04-26-2024 10:42-0400 Body height 170.2 cm Ashley Shah MD Work Phone: [facility] 04-26-2024 10:42-0400 Body mass index (BMI) [Ratio] 33.67 kg/m2 Ashley Shah MD Work Phone: [facility] 04-26-2024 10:42-0400 Body weight 97.52 kg Ashley Shah MD Work Phone: [facility] 03-11-2024 11:20-0400 Body height 170.2 cm Rakesh Godfray PA-C Work Phone: [facility] 03-11-2024 11:20-0400 Body mass index (BMI) [Ratio] 33.67 kg/m2 Rakesh Godfray PA-C Work Phone: [facility] 03-11-2024 11:20-0400 Body weight 97.52 kg Rakesh Godfray PA-C Work Phone: [facility] 03-11-2024 11:20-0400 Diastolic blood pressure 68 mm[Hg] Rakesh Godfray PA-C Work Phone: [facility] 03-11-2024 11:20-0400 Heart rate 71 /min Rakesh Godfray PA-C Work Phone: [facility] 03-11-2024 11:20-0400 Systolic blood pressure 129 mm[Hg] Rakesh Godfray PA-C Work Phone: [facility] 02-29-2024 13:15-0400 Body height 172.7 cm Ashley Shah MD Work Phone: [facility] 02-29-2024 13:15-0400 Body mass index (BMI) [Ratio] 32.69 kg/m2 Ashley Shah MD Work Phone: [facility] 02-29-2024 13:15-0400 Body weight 97.52 kg Ashley Shah MD Work Phone: [facility] 02-29-2024 13:15-0400 Diastolic blood pressure 69 mm[Hg] Ashley Shah MD Work Phone: [facility] 02-29-2024 13:15-0400 Heart rate 76 /min Ashley Shah MD Work Phone: [facility] 02-29-2024 13:15-0400 Systolic blood pressure 101 mm[Hg] Ashley Shah MD Work Phone: [facility] 02-19-2024 11:20-0400 Body height 170.2 cm Rakesh Jesusfray PA-C Work Phone: [facility] 02-19-2024 11:20-0400 Body weight 96.16 kg Rakesh Jesusfray PA-C Work Phone: [facility] 02-15-2024 15:56-0400 Body height 172.09 cm [facility] 02-15-2024 15:56-0400 Body mass index (BMI) [Ratio] 33.7 kg/m2 [facility] 02-15-2024 15:56-0400 Body temperature 98.3 [degF] [facility] 02-15-2024 15:56-0400 Body weight 99.79 kg [facility] 02-15-2024 15:56-0400 Heart rate 87 /min [facility] 02-15-2024 15:56-0400 Respiratory rate 18 /min [facility] 02-15-2024 15:56-0400 SaO2% (BldA) [Mass fraction] 96 % [facility] 03-10-2023 10:03-0400 Body height 170.2 cm Rakesh Allenay PA-C Work Phone: [facility] 03-10-2023 10:03-0400 Body weight 96.16 kg Rakesh Jesusfray PA-C Work Phone: [facility] 09-26-2022 15:05-0500 Body height 175.26 cm José Miguel Fuentes Other [facility] Other 09-26-2022 15:05-0500 Body mass index (BMI) [Ratio] 30.86 kg/m2 José Miguel Fuentes Other [facility] Other 09-26-2022 15:05-0500 Body temperature 98.4 [degF] José Miguel Fuentes Other [facility] Other 09-26-2022 15:05-0500 Body weight 94.8 kg José Miguel Fuentes Other [facility] Other 09-26-2022 15:05-0500 Diastolic blood pressure 65 mm[Hg] José Miguel Fuentes Other [facility] Other 09-26-2022 15:05-0500 Respiratory rate 18 /min José Miguel Fuentes Other [facility] Other 09-26-2022 15:05-0500 SaO2% (BldA) [Mass fraction] 97 % José Miguel Fuentes Other [facility] Other 09-26-2022 15:05-0500 Systolic blood pressure 110 mm[Hg] José Miguel Fuentes Other [facility] Other 02-06-2022 11:30-0400 Body height 175.26 cm Armand De Paz Other [facility] Other 02-06-2022 11:30-0400 Body mass index (BMI) [Ratio] 29.53 kg/m2 Armand Olexa Other [facility] Other 02-06-2022 11:30-0400 Body weight 90.72 kg Armand Camposxa Other [facility] Other 11-14-2021 15:20-0500 Body height 175.26 cm José Miguel Ruby Other [facility] Other 11-14-2021 15:20-0500 Body mass index (BMI) [Ratio] 29.89 kg/m2 José Miguel Beltran Other [facility] Other 11-14-2021 15:20-0500 Body temperature 97.3 [degF] José Miguel Ruby Other [facility] Other 11-14-2021 15:20-0500 Body weight 91.81 kg José Miguel Ruby Other [facility] Other 11-14-2021 15:20-0500 Diastolic blood pressure 78 mm[Hg] Chynasteffany Beltran Other [facility] Other 11-14-2021 15:20-0500 Respiratory rate 18 /min José Miguel Ruby Other [facility] Other 11-14-2021 15:20-0500 SaO2% (BldA) [Mass fraction] 97 % José Miguel Ruby Other [facility] Other 11-14-2021 15:20-0500 Systolic blood pressure 130 mm[Hg] José Miguel Beltran Other [facility] Other Encounters Encounter Date Encounter Type Care Provider Facility Start: 08-01-2024 End: 08-01-2024 Refill Ashley Shah MD Work Phone: Ambulatory Surgery Comment on above: Refill Request Start: 07-28-2024 End: 07-28-2024 Refill Ashley Shah MD Work Phone: Ambulatory Surgery Comment on above: Refill Request (Evelia fate) Start: 07-27-2024 End: 07-27-2024 ambulatory Nella Dupont PT Work Phone: [facility] Comment on above: Chronic midline low back pain without sciatica (Primary Dx) Start: 07-25-2024 ambulatory NON STAFF Facility:[facility] Start: 07-08-2024 End: 07-08-2024 ambulatory Angelic Pope PT Work Phone: [facility] Comment on above: Chronic midline low back pain without sciatica (Primary Dx) Start: 06-26-2024 End: 06-27-2024 Refill Ashley Shah MD Work Phone: Ambulatory Surgery Comment on above: Refill Request (Evelia fate) Start: 06-17-2024 End: 06-17-2024 ambulatory Nella Gill PT Work Phone: [facility] Comment on above: Chronic midline low back pain without sciatica (Primary Dx) Start: 06-16-2024 End: 06-16-2024 ambulatory PADMINI GALINDO Not Available Start: 05-27-2024 End: 05-27-2024 ambulatory Nella Dupont PT Work Phone: [facility] Comment on above: Chronic midline low back pain without sciatica (Primary Dx); Lumbar spondylosis; Chronic bilateral low back pain with bilateral sciatica; Pain in right hip Start: 05-19-2024 ambulatory Rakesh ortiz PA-C Work Phone: [facility] Start: 05-19-2024 Patient encounter procedure Rakesh Thompson PA-C Work Phone: [facility] Comment on above: My cancelled appoint ment Start: 04-27-2024 Telephone encounter Ashley mckeon MD Work Phone: Gastroenterology Comment on above: Insurance Authorizat ion (PA nexium) Start: 04-26-2024 End: 04-26-2024 ambulatory HUGO Rubi MENDEZ Facility:[facility] Start: 04-26-2024 End: 04-26-2024 Subsequent hospital visit by physician Ashley Shah MD Work Phone: Ambulatory Surgery Comment on above: Gastroesophageal ref lux disease with esophagitis without hemorrhage [K21.00] Start: 04-25-2024 Admission to [facility] Ashley Shah MD Work Phone: Ambulatory Surgery Start: 04-25-2024 ambulatory Ashley Shah MD Work Phone: Ambulatory Surgery Start: 03-21-2024 End: 03-21-2024 ambulatory HUGO MENDEZ Facility:[facility] Start: 03-21-2024 End: 03-21-2024 Subsequent hospital visit by physician Erica [facility] Mary Kate Work Phone: Radiology Comment on above: Chronic abdominal pa in [R10.9, G89.29] Start: 03-18-2024 End: 03-18-2024 ambulatory Dunia Aranda PT, DPT Work Phone: [facility] Comment on above: S/P cervical spinal fusion; Left arm weakness; Neck pain; Numbness and tingling in both hands; Pain in both hands Start: 03-11-2024 End: 03-11-2024 ambulatory HUGO MENDEZ Facility:[facility] Start: 03-11-2024 End: 03-11-2024 Patient encounter procedure Rakesh Thompson PA-C Work Phone: [facility] Comment on above: Lumbar spondylosis ( Primary Dx); Chronic bilateral low back pain with bilateral sciatica; Pain in right hip Start: 02-29-2024 End: 02-29-2024 ambulatory ASHLEY SHAH Facility:[facility] Start: 02-29-2024 End: 02-29-2024 ambulatory HUGO MENDEZ Facility:[facility] Start: 02-29-2024 End: 02-29-2024 Patient encounter procedure Ashley Shah MD Work Phone: Gastroenterology Comment on above: Chronic abdominal pa in (Primary Dx); Gastroesophageal reflux disease with esophagitis without hemorrhage; Nausea; PUD (peptic ulcer disease); Rectal bleeding; Irritable bowel syndrome with both constipation and diarrhea Start: 02-19-2024 End: 02-19-2024 ambulatory RAKESH THOMPSON Facility:[facility] Start: 02-19-2024 End: 02-19-2024 Subsequent hospital visit by physician Xr [facility] Work Phone: Radiology Comment on above: Chronic bilateral lo w back pain with right-sided sciatica [M54.41, G89.29] Start: 02-19-2024 End: 02-19-2024 ambulatory HUGO MENDEZ Facility:[facility] Start: 02-19-2024 End: 02-19-2024 Patient encounter procedure Rakesh Thompson PA-C Work Phone: [facility] Comment on above: Left arm weakness (P rimary Dx); Neck pain; Numbness and tingling in both hands; Pain in both hands; S/P cervical spinal fusion; Chronic bilateral low back pain with right-sided sciatica Start: 02-15-2024 End: 02-15-2024 ambulatory NON STAFF [facility] Work Phone: Start: 02-15-2024 End: 02-15-2024 Patient encounter procedure [facility] Work Phone: Start: 04-20-2023 End: 04-20-2023 Subsequent hospital visit by physician [facility] [employer] [facility] (Lg Bore/3t) Radiology Comment on above: Radiculopathy, cervi michael region [M54.12] Start: 04-08-2023 Telephone encounter Rakesh mas PA-C Work Phone: [facility] Comment on above: Results Start: 04-03-2023 End: 04-03-2023 ambulatory Emg 1000) Work Phone: Neurology Comment on above: EMG Start: 04-03-2023 End: 04-03-2023 Patient encounter procedure Emg 4 Neur Main (Max Weight: 1000) Work Phone: [facility] Start: 03-25-2023 End: 03-25-2023 Subsequent hospital visit by physician [facility] Work Phone: Radiology Comment on above: Radiculopathy, cervi michael region [M54.12] Start: 03-10-2023 End: 03-10-2023 Patient encounter procedure Rakesh Thompson PA-C Work Phone: [facility] Comment on above: Radiculopathy, cervi michael region (Primary Dx); S/P cervical spinal fusion; Numbness and tingling in left arm; Spasm of muscle Start: 03-08-2023 End: 03-08-2023 ambulatory KELLEE CANO Facility:[facility] Start: 03-02-2023 End: 03-03-2023 ambulatory FLOWER MCDERMOTT Facility:[facility] Start: 02-17-2023 ambulatory Suresh HERNANDEZ Facility :[facility] Start: 02-02-2023 End: 02-02-2023 ambulatory FLOWER MCDERMOTT Facility:[facility] Start: 01-31-2023 End: 02-01-2023 ambulatory FLOWER MCDERMOTT Facility:[facility] Start: 12-31-2022 End: 02-05-2023 ambulatory FLOWER MCDERMOTT Facility:[facility] Start: 11-27-2022 End: 11-27-2022 ambulatory ELAINE LUCAS . Facility:[facility] Start: 11-07-2022 End: 11-08-[address] PADMINI GALINDO . Facility:[facility] Start: 09-26-2022 End: 09-26-2022 ambulatory José Miguel Fuentes Other [facility] [employer] Other Start: 09-26-2022 Office outpatient vi sit 15 minutes José Miguel Fuentes [facility] Start: 09-03-2022 End: 09-04-[address] DANIS BERGER Facility:[facility] Start: 09-02-2022 End: 09-03-[address] DANIS BERGER Facility:[facility] Start: 05-22-2022 End: 05-23-[address] DANIS BERGER Facility:[facility] Start: 04-22-2022 End: 04-22-[address] PADMINI GALINDO . Facility:[facility] Start: 04-16-2022 End: 05-17-2022 ambulatory FLOWER MCDERMOTT Facility:[facility] Start: 04-14-2022 End: 04-15-[address] PATIENCE HRENANDEZ Facility:[facility] Start: 04-09-2022 End: 04-09-2022 ambulatory FLOWER MCDERMOTT Facility:[facility] Start: 04-04-2022 End: 04-05-[address] PATIENCE HERNANDEZ Facility:[facility] Start: 03-30-2022 End: 03-30-2022 ambulatory NORAH JENELLE . Facility:[facility] Start: 02-06-2022 End: 02-06-2022 ambulatory Armand De Paz Other [facility] Other Start: 02-06-2022 Office outpatient ne w 30 minutes Armand De Paz [facility] Start: 11-14-2021 End: 11-14-2021 ambulatory José Miguel Beltran Other [facility] Other Start: 11-14-2021 Office outpatient vi sit 15 minutes José Miguel Beltran [facility] Start: 03-01-2018 End: 03-02-2018 [facility] Procedures Date Procedure Procedure Detail Performing Clinician Start: 04-26-2024 Colonoscopy flx dx w/collj spec when pfrmd Ashley Shah MD Work Phone: Start: 04-26-2024 Level iv surg pathology gross&microscopic exam Ashley Shah MD Work Phone: Start: 04-26-2024 Esophagogastroduodenoscopy transoral diagnostic Ashley Shah MD Work Phone: Start: 04-26-2024 Colonoscopy Ashley Shah MD Work Phone: Start: 03-21-2024 Ct abdomen & pelvis w/contrast material Ashley Shah MD Work Phone: Start: 02-19-2024 Radex spine lumbosacral 2/3 views Chicho Thompson PA-C Work Phone: Start: 02-15-2024 Plain X-ray of right hand Start: 04-20-2023 Mri spinal canal cervical w/o contrast matrl Rakesh Thompson PA-C Work Phone: Start: 04-03-2023 Nerve conduction studies 5-6 studies Rakesh Thompson PA-C Work Phone: Start: 03-25-2023 Ct cervical spine w/o contrast material Rakesh Thompson PA-C Work Phone: Plan of Treatment Date Care Activity Detail Author Start: 04-02-2029 Screening for malignant neoplasm of colon [facility] Start: 02-28-2027 Diabetes Screening Diabetes Screening [facility] Start: 07-25-2026 Urine microalbumin profile DTaP,Tdap,Td Vaccine (2 - Td or Tdap) [facility] Start: 07-27-2024 End: 07-27-2024 ambulatory 07/27/2024 3:45 PM EDT OT/PT/Speech Visit [facility] [address] [place] [address] Nella Dupont, PT [address] [place] [address] hip and back [facility] Comment on above: hip and back Start: 07-19-2024 End: 07-19-2024 ambulatory 07/19/2024 6:00 PM EDT OT/PT/Speech Visit [facility] [address] [place] [address] Dunia Aranda, PT, DPT [address] [facility] [place] [address] hip and back [facility] Comment on above: hip and back Start: 07-08-2024 End: 07-08-2024 ambulatory 07/08/2024 1:45 PM EDT OT/PT/Speech Visit [facility] [address] [place] [address] Angelic Pope, PT [address] [place] [address] hip and back [facility] Comment on above: hip and back Start: 07-03-2024 Covid-19 Vaccine () Covid-19 Vaccine ( season) [facility] Start: 07-03-2024 Covid-19 Vaccine ( season) Covid-19 Vaccine ( season) [facility] Start: 07-03-2024 Influenza vaccination [facility] Start: 06-17-2024 End: 06-17-2024 ambulatory 06/17/2024 3:30 PM EDT OT/PT/Speech Visit [facility] [address] [place] [address] Nella Dupont, PT [address] [place] [address] 2/8 visit hip and back [facility] Comment on above: 2/8 visit hip and back Start: 05-27-2024 End: 05-27-2024 ambulatory [facility] Comment on above: Pain / visits Pain Pain issues Start: 05-20-2024 End: 05-20-2024 Patient encounter procedure 05/20/2024 11:15 AM EDT Office Visit [facility] [address] [place] [id number] Rakesh Thompson PA-C [address] [place] [address] follow up after PT course [facility] Comment on above: follow up after PT course Start: 04-26-2024 End: 04-26-2024 Patient encounter procedure 04/26/2024 10:45 AM EDT Appointment Ambulatory Surgery [address] [place] [address] [place] [address] [place] [id number] Rectal bleeding [K62.5] Ambulatory Surgery Comment on above: Rectal bleeding [K62.5] Start: 04-12-2024 End: 04-12-2024 Anesthesia consultation 04/12/2024 11:59 PM EDT Anesthesia Event Ambulatory Surgery [address] [place] [address] Og Farrell APRN.POKER MANAGER Ambulatory [facility] Start: 04-05-2024 End: 04-05-2024 ambulatory 04/05/2024 4:30 PM EDT OT/PT/Speech Visit [facility] [address] [place] [address] Dunia Aranda, PT, DPT [address] [facility] [place] [address] S/P cervical spinal fusion [Z98.1] [facility] Comment on above: S/P cervical spinal fusion [Z98.1] Start: 03-21-2024 End: 03-21-2024 Patient encounter procedure Radiology Comment on above: Chronic abdominal pain [R10.9, G89.29] Start: 03-18-2024 End: 03-18-2024 ambulatory 03/18/2024 2:00 PM EDT OT/PT/Speech Visit [facility] [address] [place] [address] Dunia Aranda, PT, DPT [address] [facility] [place] [address] S/P cervical spinal fusion [Z98.1] [facility] Comment on above: S/P cervical spinal fusion [Z98.1] Start: 03-11-2024 End: 03-11-2024 Patient encounter procedure 03/11/2024 11:15 AM EDT Office Visit [facility] [address] [place], [place] [id number] Rakesh Thompson PA-C [address] [place] [address] low back pain [facility] Comment on above: low back pain Start: 02-29-2024 End: 05-30-2024 ENDOMYSIAL ANTIBODY, IGG Dietz Danyelle c Comment on above: Expected: 02/29/2024, Expires: Start: 02-29-2024 End: 05-30-2024 Endomysium IgA Ab [Titer] in Serum by Immunofluorescence [facility] Comment on above: Expected: 02/29/2024, Expires: Start: 02-29-2024 End: 05-30-2024 GLIADIN (DEAMINATED) ABS [facility] Comment on above: Expected: 02/29/2024, Expires: Start: 02-29-2024 End: 05-30-2024 Tissue transglutaminase IgA Ab [Units/volume] in Serum [facility] Comment on above: Expected: 02/29/2024, Expires: Start: 02-29-2024 End: 05-30-2024 Tissue transglutaminase IgG Ab [Units/volume] in Serum [facility] Comment on above: Expected: 02/29/2024, Expires: Start: 11-02-2023 Behavioral Health Screening Behavioral Health Screening [facility] Start: 09-02-2023 Screening for malignant neoplasm of breast Mammogram Screening [facility] Start: 07-03-2023 Covid-19 Vaccine ( season) Covid-19 Vaccine ( season) [facility] Start: 07-03-2023 Influenza vaccination [facility] Start: 03-23-2023 ambulatory Ambulatory Facility: Start: 11-02-2022 DEPRESSION ASSESSMENT DEPRESSION ASSESSMENT [facility] Start: 03-30-2021 COVID-19 VACCINE (2 - Booster for Moderna series) COVID-19 VACCINE (2 - Booster for Moderna series) [facility] Start: 2021 COLOGUARD (FIT-DNA) COLOGUARD (FIT-DNA) [facility] Start: 2021 Colonoscopy COLONOSCOPY [facility] Start: 2021 COLORECTAL CANCER SCREENING COLORECTAL CANCER SCREENING [facility] Start: [address] COLONOGRAPHY [facility] Start: 2021 DIABETES SCREEN DIABETES SCREEN [facility] Start: 2021 Diabetes Screening Diabetes Screening [facility] Start: 2021 FECAL OCCULT BLOOD FECAL OCCULT BLOOD [facility] Start: 2021 Lipid panel Lipid Screening [facility] Start: 2021 LIPID SCREEN LIPID SCREEN [facility] Start: 2021 Screening for malignant neoplasm of colon [facility] Start: 2021 SIGMOIDOSCOPY SIGMOIDOSCOPY [facility] Start: 2016 Mammography MAMMOGRAM [facility] Start: 2006 HPV TESTING HPV TESTING [facility] Start: 2006 Screening for malignant neoplasm of cervix HPV Testing [facility] Start: 1997 PAP TESTING PAP TESTING [facility] Start: 1997 Screening for malignant neoplasm of cervix [facility] Start: 1995 Hepatitis B Vaccine (1 of 3 - 19+ 3-dose series) Hepatitis B Vaccine (1 of 3 - 19+ 3-dose series) [facility] Start: 1995 Urine microalbumin profile DTAP,TDAP,TD (1 - Tdap) [facility] Start: 1994 Anxiety Screening Anxiety Screening [facility] Start: 1994 Depression Screening Depression Screening [facility] Start: 1994 HEPATITIS C SCREENING HEPATITIS C SCREENING [facility] Start: 1994 Hepatitis C screening Hepatitis C Screening [facility] Start: 1994 HIV SCREENING HIV SCREENING [facility] Start: 1994 HIV screening HIV Screening [facility] Start: 1976 COVID-19 VACCINE (#1) COVID-19 VACCINE (#1) [facility] Start: 1976 HEPATITIS B (1 of 3 - 3-dose series) HEPATITIS B (1 of 3 - 3-dose series) [facility] Calprotectin [Mass/m ass] in Stool CALPROTECTIN,FECAL Lab Routine Irritable bowel syndrome with both constipation and diarrhea Ordered: 02/29/2024 [facility] Comment on above: Ordered: 02/29/2024 Clostridioides diffi cile toxin genes [Presence] in Stool by TINO with probe detection C. DIFFICILE PCR Lab Routine Irritable bowel syndrome with both constipation and diarrhea Ordered: 02/29/2024 [facility] Comment on above: Ordered: 02/29/2024 End: 03-30-2025 CT Abdomen and Pelvis W contrast IV CT ABD/PEL W IVCON Radiology Routine Chronic abdominal pain Nausea 1 Occurrences starting 02/29/2024 until 03/30/2025 [facility] Work Phone: Comment on above: 1 Occurrences starting 02/29/2024 until 03/30/2025 End: 04-08-2024 Ct cervical spine w/o contrast material CT CERVICAL SPINE WO IVCON Radiology Routine Radiculopathy, cervical region S/P cervical spinal fusion Numbness and tingling in left arm Spasm of muscle 1 Occurrences starting 03/10/2023 until 04/08/2024 [facility] Work Phone: Comment on above: 1 Occurrences starting 03/10/2023 until 04/08/2024 End: 02-28-2025 EGD DIAGNOSTIC EGD DIAGNOSTIC Endoscopy Routine Gastroesophageal reflux disease with esophagitis without hemorrhage Nausea PUD (peptic ulcer disease) 1 Occurrences starting 02/29/2024 until 02/28/2025 [facility] Comment on above: 1 Occurrences starting 02/29/2024 until 02/28/2025 End: 03-10-2024 EMG(NEURO/NI) EMG(NEURO/NI) EMG Routine Radiculopathy, cervical region Numbness and tingling in left arm Spasm of muscle 1 Occurrences starting 03/10/2023 until 03/10/2024 [facility] Work Phone: Comment on above: 1 Occurrences starting 03/10/2023 until 03/10/2024 FAT, FECAL QUAL FAT, FECAL QUAL Lab Routine Irritable bowel syndrome with both constipation and diarrhea Ordered: 02/29/2024 [facility] Comment on above: Ordered: 02/29/2024 End: 02-28-2025 Flexible sigmoidoscopy study COLONOSCOPY DIAGNOSTIC Endoscopy Routine Rectal bleeding Irritable bowel syndrome with both constipation and diarrhea 1 Occurrences starting 02/29/2024 until 02/28/2025 [facility] Comment on above: 1 Occurrences starting 02/29/2024 until 02/28/2025 End: 04-08-2024 Mri spinal canal cervical w/o contrast matrl MRI CERVICAL SPINE WO IVCON Radiology Routine Radiculopathy, cervical region S/P cervical spinal fusion Numbness and tingling in left arm Spasm of muscle 1 Occurrences starting 03/10/2023 until 04/08/2024 [facility] Work Phone: Comment on above: 1 Occurrences starting 03/10/2023 until 04/08/2024 PANC ELASTASE, FECAL PANC ELASTA SE, FECAL Lab Routine Irritable bowel syndrome with both constipation and diarrhea Ordered: 02/29/2024 [facility] Comment on above: Ordered: 02/29/2024 [facility] Immunizations Immunization Date Immunization Notes Care Provider Donna thomasnawaf 08-04-2016 influenza virus vacc ine, unspecified formulation Rakesh Thompson PA-C Work Phone: [facility] Payers Date Payer Category Payer Self-pay [id number] 2022 Medicaid [employer] [facility] [place] [id number] 2022-Present [phone] [address] [place] [address] Medicaid [id number] 1976 Unknown [id number] 1976 Unknown [id number] [id number] 1976 Unknown [id number] 2.16840.1.754489.3.579.2.593 1976 Unknown [id number] 2.16840.1.326723.3.579.2.593 1976 Unknown [id number] 2.16840.1.426089.3.579.2.593 1976 Unknown [id number] 2.16.840.1.472675.3.579.2.593 1976 Unknown [id number] 2.16.840.1.763463.3.579.2.593 1976 Unknown [id number] 2.16.840.1.623939.3.579.2.593 1976 Unknown [id number] 2.16.840.1.520684.3.579.2.593 1976 Unknown [id number] 2.16.840.1.707217.3.579.2.593 1976 Unknown [id number] 2.16.840.1.302665.3.579.2.593 1976 Unknown [id number] 2.16.840.1.875435.3.579.2.593 1976 Unknown [id number] 2.16.840.1.732143.3.579.2.593 1976 Unknown [id number] 2.16.840.1.593602.3.579.2.593 1976 Unknown [id number] 2.16.840.1.459453.3.579.2.593 1976 Unknown [id number] 2.16.840.1.875168.3.579.2.593 1976 Unknown [id number] 2.16.840.1.683309.3.579.2.593 1976 Unknown [id number] 2.16.840.1.730284.3.579.2.593 1976 Unknown [id number] 2.16.840.1.646506.3.579.2.1259 1959 Unknown [id number] 1959 Unknown [id number] Unknown [id number] 2.16.840.1.046426.3.579.2.531 Unknown [id number] 2.16.840.1.790009.3.579.2.531 Social History Date Type Detail Facility Unknown if ever smoked [facility] Start: 02-18-2024 End: 02-19-2024 [facility] Assigned At [facility] Work Phone: Start: 1975 Sex Assigned At Not on file [facility] Start: 03-24-2023 End: 04-03-2023 Exposure to SARS-CoV-2 (event) Not sure [facility] Start: 02-15-2024 End: 04-26-2024 Tobacco smoking status NHIS Ex-smoker (finding) [facility] Start: 1975 Sex Assigned At Female [facility] Start: 02-18-2024 End: 02-19-2024 History of Social function [facility] Adult Depression Screening Assessment 2 [facility] Start: 02-18-2024 Gender identity Identifies as female gender (finding) [facility] Start: 02-18-2024 Sexual orientation Homosexual (finding) [facility] End: 03-23-2023 History of tobacco use Current smoker [facility] End: 03-23-2023 History of tobacco use Cigarette Smoker [facility] Start: 02-29-2024 End: 04-26-2024 Tobacco use and exposure Smokeless tobacco non-user [facility] Start: 02-29-2024 End: 04-26-2024 Alcohol intake Ex-drinker (finding) [facility] Clinical Notes 11-14-2021 to 08-01-2024 Telephone Encounter - Whitney Thorpe LPN - 08/01/2024 12:50 PM EDTTelephone Encounter - Whitney Thorpe LPN - 08/01/2024 12:50 PM Nella Harris PT - 07/27/2024 3:45 PM EDT Note Date & Type Note Facility 08-01-2024 Telephone encounter Note Refill Request Last office visit: 02/29/24 Request for medication is as follows: Requested Prescriptions Pending Prescriptions Disp Refills hyoscyamine (LEVSIN) 0.125 mg tablet [Pharmacy Med Name: HYOSCYAMINE SULF 0.125 MG TAB] 60 tablet 1 Sig: TAKE 1 TABLET BY MOUTH TWO TIMES A DAY AT 6 AM AND 9 PM Refused Prescriptions Disp Refills sucralfate (CARAFATE) 1 gram tablet [Pharmacy Med Name: SUCRALFATE 1 GM TABLET] 60 tablet 0 Sig: TAKE 1 TABLET BY MOUTH TWO TIMES A DAY BEFORE MEALS. Prescription(s) as above. Please process accordingly. Whitney Thorpe LPN [facility] 08-01-2024 Miscellaneous Notes Refill Request Last office visit: 02/29/24 Request for medication is as follows: Requested Prescriptions Pending Prescriptions Disp Refills hyoscyamine (LEVSIN) 0.125 mg tablet [Pharmacy Med Name: HYOSCYAMINE SULF 0.125 MG TAB] 60 tablet 1 Sig: TAKE 1 TABLET BY MOUTH TWO TIMES A DAY AT 6 AM AND 9 PM Refused Prescriptions Disp Refills sucralfate (CARAFATE) 1 gram tablet [Pharmacy Med Name: SUCRALFATE 1 GM TABLET] 60 tablet 0 Sig: TAKE 1 TABLET BY MOUTH TWO TIMES A DAY BEFORE MEALS. Prescription(s) as above. Please process accordingly. Whitney Thorpe LPN documented in this encounter [facility] 07-28-2024 Telephone encounter Note Pharmacy has requested the following refill(s): Requested Prescriptions Pending Prescriptions Disp Refills sucralfate (CARAFATE) 1 gram tablet [Pharmacy Med Name: SUCRALFATE 1 GM TABLET] 60 tablet 0 Sig: TAKE 1 TABLET BY MOUTH TWO TIMES A DAY BEFORE MEALS. [facility] 07-28-2024 Miscellaneous Notes Pharmacy has requested the following refill(s): Requested Prescriptions Pending Prescriptions Disp Refills sucralfate (CARAFATE) 1 gram tablet [Pharmacy Med Name: SUCRALFATE 1 GM TABLET] 60 tablet 0 Sig: TAKE 1 TABLET BY MOUTH TWO TIMES A DAY BEFORE MEALS. documented in this encounter [facility] 07-27-2024 History of Presen t illness Narrative Images from the original note were not included. Episode Visit Count: 4 Therapist That Will Accept/Oversee The Plan Of Care: Nella Dupont Start of Care Date: 05/27/24 Onset Date: 11/02/18 Plan of Care Certification Date: 05/27/24 Next Certification Due Date: 07/27/24 Patient Identified by Name and Date of : Yes REHABILITATION AND SPORTS THERAPY PHYSICAL THERAPY DISCONTINUANCE OF CARE PLAN OF CARE UPDATE: Assessment: Aurora Montague is discontinued from Physical Therapy services due to goal achievement and maximal benefit.. Patient was seen for 4 visits from Start of Care Date: 05/27/24 to 07/27/2024 and treatment included: Therapeutic exercise, Neuromuscular re-education, and Self-halfway management. Patient has had improvements in lumbar ROM, LE and core strength, ability to perform functional activities, and decreased pain since initiating physical therapy services. Patient continues to have LBP and hip pain. Is going to follow up with physician. Goals for Episode of Care: created on 05/27/24 through 07/27/24 Updated 07/27/24 [place] in home exercise program. MET Patient will decrease pain rating by 2 points to meet minimal clinical important difference for numeric pain rating scale. Not MET Patient will demonstrate increase in R LE strength to 4+/5 during manual muscle testing in order to improve function for basic self-care tasks, home management tasks, and moderate to heavy functional tasks. MET Patient will increase flexibility of bilateral hamstrings to WNL to improve ability to maintain proper posture, improve mechanics, and decrease pain. Not MET Perform ADLs and work duties with decreased report of symptoms/pain in 8 weeks. Not MET SUBJECTIVE: Patient reports that she is having trouble with her right arm. Just woke up one morning and could not move it. She is hurting a lot today. She went into a [employer] kitchen, and they had a board she didn't see over the door, and tripped and face planted. Her back and hips are hurting more. Is not sure what it is. Notes that she had a CT scan and has cysts in her hips. Is not sure what exercise will do for the cysts. Continues to go to the gym 3x/week. Is doing exercises at home. Feels like she can continue with exercises at home, is ready for discharge this visit. Is going to follow up with physician about imaging. Pain: Pain Pain Level: 7 Pain Location: Hip - Right, Hip - Left, Back Description: Aching Frequency: Continuous Post Treatment Pain Post Treatment Pain Level: Better PROMIS Scales 07/19/2024 05/26/2024 03/18/2024 Higher is Better Phys Func - Score 40 (mild dysfunction) 39 (moderate dysfunction) 41 (mild dysfunction) Phys Func - Percentile 16 14 18 Self-Eff Symptom - Score 36 (Low) 37 (Low) 37 (Low) Self-Eff Symptom - Percentile 8 10 10 T-scores: mean of general population = 50. 5 points is clinically meaningfully difference Percentiles provide an indication of how the patient's score ranks in relation to the general population. Higher percentile rankings indicate better function/quality of life. 50th percentile is the average of the general population and indicates half of respondents had a worse score. OBJECTIVE MEASURES WITH LEVEL OF FUNCTION: Posture / Alignment Posture: Rounded shoulders, Forward head Lumbar Spine AROM Lumbar Flexion: Normal Lumbar Extension: Normal Lumbar R Side-Bend: Normal Lumbar L Side-Bend: Normal Lumbar R Rotation: Normal Lumbar L Rotation: Normal LE Flexibility Flexibility: Hamstring Flexibility R Hamstring Flexibility: min restriction L Hamstring Flexibility: min restriction LE Strength R Hip Extension: 4+/5 R Hip Flexion (L2): 4+/5 R Hip ABduction: 4+/5 R Knee Extension (L3): 4+/5 R Knee Flexion: 4+/5 L Hip Extension: 4+/5 L Hip Flexion (L2): 4+/5 L Hip ABduction: 4+/5 L Knee Extension (L3): 4+/5 L Knee Flexion: 4+/5 Gait Gait: Independent TREATMENT: Therapeutic Exercise: 3: SLR x 15 reps each LE 4: GTB hip abduction x 15 reps each LE 5: GTB hip extension x 15 reps each LE 6: seated hamstring stretch x 30 sec x 2 reps each LE 7: Goal/Skill re-check x 12' Skilled Intervention: Patient was educated in proper exercise technique and purpose for exercises. Skilled judgment was used in selection of appropriate interventions. Correct performance of therapeutic exercises was facilitated with verbal, visual, and tactile cuing. Educated patient on rationale for performing exercises in regards to decreasing fatigue , improving fitness, increase ease of ADL, and ROM and function . Patient education as noted. Neuromuscular Re-Education: 1: hooklying hip flexion isometric alt UE/LE x 5 sec hold x 10 reps 2: bridge with TrA contraction x 15 reps Skilled Intervention: Education in proprioceptive/kinesthetic awareness during dynamic activities. Correct performance of home program was facilitated with verbal, visual, and tactile cueing. Patient education as noted. Billing Therapeutic Exercise Treatment Minutes: 21 Neuromuscular Re-Education Treatment Minutes: 10 Skilled Treatment Time Minutes (timed and untimed codes): 31 Total Session Time (minutes): 32 Session Start Time : 1545 Session Stop Time : 1617 Nella Dupont PT documented in this encounter [facility] 07-08-2024 History of Presen t illness Narrative Program_ID:[id number] Access Code: [email or web address] URL: [email or web address] Date: 07-08-2024 Prepared By: Nella Dupont Program Notes Exercises - Standing Hip Extension with Anchored Resistance - 2 x daily - 7 x weekly - 2 sets - 10 reps - Standing Hip Abduction with Anchored Resistance - 2 x daily - 7 x weekly - 2 sets - 10 reps - Bug - 2 x daily - 7 x weekly - 2 sets - 10 reps - Prone Hip Extension - 2 x daily - 7 x weekly - 2 sets - 10 reps - Sit to Stand Without Arm Support - 2 x daily - 7 x weekly - 3 sets - 10 reps Episode Visit Count: 3 Therapist That Will Accept/Oversee The Plan Of Care: Nella Dupont Start of Care Date: 05/27/24 Onset Date: 11/02/18 Plan of Care Certification Date: 05/27/24 Next Certification Due Date: 07/26/24 REHABILITATION AND SPORTS THERAPY PHYSICAL THERAPY TREATMENT NOTE ASSESSMENT: Aurora Montague tolerated the session with no issues. She had not physical c/o throughout session. She demonstrated good understanding of core activation and purpose throughout session. The patient will continue to benefit from ongoing skilled physical therapy to progress toward set goals. PLAN FOR NEXT VISIT: Progress as able SUBJECTIVE: Back pain is worst than normal today, due to sitting in car more recently. Pt goes to a gym, and does machines. Pt feels like the exercises are going to help her. Pain: Pain Pain Level: 3 Pain Location: Back Description: Aching Frequency: Continuous Additional Pain Information : Location 2 Pain Level 2: 5 Pain Location 2: Hip - Right OBJECTIVE MEASURES WITH LEVEL OF FUNCTION: TREATMENT: Therapeutic Exercise: 2: LTR x 15 reps each side 3: *stand GTB hip abd (brace cue) R/L x 15 4: *stand GTB hip ext R/L (brace cue) X 15 each 5: *sit to stand push press with 5# wt 3 x 10 Skilled Intervention: Patient was educated in proper exercise technique and purpose for exercises. Skilled judgment was used in selection of appropriate interventions. Provided written instruction for home exercise program to facilitate proper performance and compliance. Correct performance of therapeutic exercises was facilitated with verbal and visual cuing. Patient education as noted. Neuromuscular Re-Education: 1: hooklying hip flexion isometric alt UE/LE x 5 sec hold x 10 reps 2: bridge with ab brace x 15 reps 3: *alternating UE/LE raise (core stab cues) x 15 4: *alternating prone LE raise with brace x 15 Skilled Intervention: Patient education as noted. Home Exercise Program Assigned: 1: Access Code: [email or web address] URL: [email or web address] Date: 07/08/2024 Prepared by: Angelic Pope Exercises - Standing Hip Extension with Anchored Resistance - 2 x daily - 7 x weekly - 2 sets - 10 reps - Standing Hip Abduction with Anchored Resistance - 2 x daily - 7 x weekly - 2 sets - 10 reps - Bug - 2 x daily - 7 x weekly - 2 sets - 10 reps - Prone Hip Extension - 2 x daily - 7 x weekly - 2 sets - 10 reps - Sit to Stand Without Arm Support - 2 x daily - 7 x weekly - 3 sets - 10 reps Billing Therapeutic Exercise Treatment Minutes: 25 Neuromuscular Re-Education Treatment Minutes: 18 Skilled Treatment Time Minutes (timed and untimed codes): 43 Total Session Time (minutes): 43 Session Start Time : 1351 Session Stop Time : 1434 Angelic Pope PT documented in this encounter [facility] 07-08-2024 Note HNO ID: [id number] Author: ANGELIC POPE PT Service: ? Author Type: Physical Therapist Type: Progress Notes Filed: 07/08/2024 14:37 Note Text: Episode Visit Count: 3 Therapist That Will Accept/Oversee The Plan Of Care: Nella Dupont Start of Care Date: 05/27/24 Onset Date: 11/02/18 Plan of Care Certification Date: 05/27/24 Next Certification Due Date: 07/26/24 REHABILITATION AND SPORTS THERAPY PHYSICAL THERAPY TREATMENT NOTE ASSESSMENT: Aurora Montague tolerated the session with no issues. She had not physical c/o throughout session. She demonstrated good understanding of core activation and purpose throughout session. The patient will continue to benefit from ongoing skilled physical therapy to progress toward set goals. PLAN FOR NEXT VISIT: Progress as able SUBJECTIVE: Back pain is worst than normal today, due to sitting in car more recently. Pt goes to a gym, and does machines. Pt feels like the exercises are going to help her. Pain: Pain Pain Level: 3 Pain Location: Back Description: Aching Frequency: Continuous Additional Pain Information : Location 2 Pain Level 2: 5 Pain Location 2: Hip - Right OBJECTIVE MEASURES WITH LEVEL OF FUNCTION: TREATMENT: Therapeutic Exercise: 2: LTR x 15 reps each side 3: *stand GTB hip abd (brace cue) R/L x 15 4: *stand GTB hip ext R/L (brace cue) X 15 each 5: *sit to stand push press with 5# wt 3 x 10 Skilled Intervention: Patient was educated in proper exercise technique and purpose for exercises. Skilled judgment was used in selection of appropriate interventions. Provided written instruction for home exercise program to facilitate proper performance and compliance. Correct performance of therapeutic exercises was facilitated with verbal and visual cuing. Patient education as noted. Neuromuscular Re-Education: 1: hooklying hip flexion isometric alt UE/LE x 5 sec hold x 10 reps 2: bridge with ab brace x 15 reps 3: *alternating UE/LE raise (core stab cues) x 15 4: *alternating prone LE raise with brace x 15 Skilled Intervention: Patient education as noted. Home Exercise Program Assigned: 1: Access Code: [email or web address] URL: [email or web address] Date: 07/08/2024 Prepared by: Angelic Pope Exercises - Standing Hip Extension with Anchored Resistance - 2 x daily - 7 x weekly - 2 sets - 10 reps - Standing Hip Abduction with Anchored Resistance - 2 x daily - 7 x weekly - 2 sets - 10 reps - Bug - 2 x daily - 7 x weekly - 2 sets - 10 reps - Prone Hip Extension - 2 x daily - 7 x weekly - 2 sets - 10 reps - Sit to Stand Without Arm Support - 2 x daily - 7 x weekly - 3 sets - 10 reps Billing Therapeutic Exercise Treatment Minutes: 25 Neuromuscular Re-Education Treatment Minutes: 18 Skilled Treatment Time Minutes (timed and untimed codes): 43 Total Session Time (minutes): 43 Session Start Time : 1351 Session Stop Time : 1434 Angelic Pope PT [facility] 06-27-2024 Telephone encounter Note Pharmacy calls in requesting the following refill(s): Requested Prescriptions Pending Prescriptions Disp Refills sucralfate (CARAFATE) 1 gram tablet [Pharmacy Med Name: SUCRALFATE 1 GM TABLET] 60 tablet 0 Sig: TAKE 1 TABLET BY MOUTH TWO TIMES A DAY BEFORE MEALS. [facility] 06-27-2024 Miscellaneous Notes Pharmacy calls in requesting the following refill(s): Requested Prescriptions Pending Prescriptions Disp Refills sucralfate (CARAFATE) 1 gram tablet [Pharmacy Med Name: SUCRALFATE 1 GM TABLET] 60 tablet 0 Sig: TAKE 1 TABLET BY MOUTH TWO TIMES A DAY BEFORE MEALS. documented in this encounter [facility] 06-17-2024 History of Presen t illness Narrative Program_ID:[id number] Access Code: [email or web address] URL: [email or web address] Date: 06-17-2024 Prepared By: Nella Dupont Program Notes Exercises - Supine Bridge - 1-2 x daily - 7 x weekly - 1 sets - 10-15 reps - Active Straight Leg Raise with Quad Set - 1-2 x daily - 7 x weekly - 1 sets - 10 reps - Sidelying Hip Abduction - 1-2 x daily - 7 x weekly - 1-2 sets - 10-15 reps - Seated Hamstring Stretch - 1 x daily - 7 x weekly - sets - 2 reps - Marching Bridge - 1 x daily - 7 x weekly - 1 sets - 10 reps - Hooklying Isometric Hip Flexion with Opposite Arm - 1-2 x daily - 7 x weekly - 1 sets - 10 reps Episode Visit Count: 2 Therapist That Will Accept/Oversee The Plan Of Care: Nella Dupont Start of Care Date: 05/27/24 Onset Date: 11/02/18 Plan of Care Certification Date: 05/27/24 Next Certification Due Date: 07/26/24 Patient Identified by Name and Date of : Yes REHABILITATION AND SPORTS THERAPY PHYSICAL THERAPY TREATMENT NOTE ASSESSMENT: Aurora Montague tolerated the session with expected muscle soreness. She demonstrated improvements in tolerance to activities this visit, with increased difficulty of exercises performed today. The patient will continue to benefit from ongoing skilled physical therapy to progress toward set goals. PLAN FOR NEXT VISIT: Progress as able SUBJECTIVE: Patient reports that things have been good. Her hip feels the same. She can feel it in her back and then in the side of her foot. Feels like it is going to [employer]. Pain: Pain Pain Level: 4 Pain Location: Hip - Right Description: Aching Frequency: Continuous Post Treatment Pain Post Treatment Pain Level: Better OBJECTIVE MEASURES WITH LEVEL OF FUNCTION: Patient ambulated into the clinic independently. Lumbar Spine AROM Lumbar Flexion: Minimal limitation Lumbar Extension: Normal Lumbar R Side-Bend: Normal Lumbar L Side-Bend: Normal Lumbar R Rotation: Normal Lumbar L Rotation: Normal LE AROM Lumbar Spine Evaluated?: Yes TREATMENT: Therapeutic Exercise: 1: Nu Step x 5' discussing smptoms, discussing HEP and activities at home, discussing nutrition, discussing fueling correctly 2: LTR x 10 reps each side 3: SLR x 15 reps each LE 4: s/l hip abduction x 15 reps each LE 6: seated hamstring stretch x 30 sec x 2 reps each LE 7: Review of gym exercises, disucssed machines and strengtheing activities Skilled Intervention: Patient was educated in proper exercise technique and purpose for exercises. Reviewed and educated patient on additions/changes for home exercise program as above (*). Skilled judgment was used in selection of appropriate interventions. Correct performance of therapeutic exercises was facilitated with verbal, visual, and tactile cuing. Educated patient on rationale for performing exercises in regards to decreasing fatigue , improving fitness, increase ease of ADL, and ROM and function . Patient education as noted. Neuromuscular Re-Education: 1: *hooklying hip flexion isometric alt UE/LE x 5 sec hold x 10 reps 2: *bridge with december x 10 reps Skilled Intervention: Skilled judgment used to assess appropriate program for balance and coordination activity. Education in proprioceptive/kinesthetic awareness during standing and dynamic activities. Reviewed and educated patient on additions/changes for home program as noted above with an (*). Correct performance of home program was facilitated with verbal, visual, and tactile cueing. Patient education as noted. Billing Therapeutic Exercise Treatment Minutes: 22 Neuromuscular Re-Education Treatment Minutes: 16 Skilled Treatment Time Minutes (timed and untimed codes): 38 Total Session Time (minutes): 39 Session Start Time : 1525 Session Stop Time : 1604 Nella Dupont PT documented in this encounter [facility] 06-17-2024 Note HNO ID: [id number] Author: NELLA DUPONT PT Service: ? Author Type: Physical Therapist Type: Progress Notes Filed: 06/17/2024 16:04 Note Text: Episode Visit Count: 2 Therapist That Will Accept/Oversee The Plan Of Care: Nella Dupont Start of Care Date: 05/27/24 Onset Date: 11/02/18 Plan of Care Certification Date: 05/27/24 Next Certification Due Date: 07/26/24 Patient Identified by Name and Date of : Yes REHABILITATION AND SPORTS THERAPY PHYSICAL THERAPY TREATMENT NOTE ASSESSMENT: Aurora Montague tolerated the session with expected muscle soreness. She demonstrated improvements in tolerance to activities this visit, with increased difficulty of exercises performed today. The patient will continue to benefit from ongoing skilled physical therapy to progress toward set goals. PLAN FOR NEXT VISIT: Progress as able SUBJECTIVE: Patient reports that things have been good. Her hip feels the same. She can feel it in her back and then in the side of her foot. Feels like it is going to [employer]. Pain: Pain Pain Level: 4 Pain Location: Hip - Right Description: Aching Frequency: Continuous Post Treatment Pain Post Treatment Pain Level: Better OBJECTIVE MEASURES WITH LEVEL OF FUNCTION: Patient ambulated into the clinic independently. Lumbar Spine AROM Lumbar Flexion: Minimal limitation Lumbar Extension: Normal Lumbar R Side-Bend: Normal Lumbar L Side-Bend: Normal Lumbar R Rotation: Normal Lumbar L Rotation: Normal LE AROM Lumbar Spine Evaluated?: Yes TREATMENT: Therapeutic Exercise: 1: Nu Step x 5' discussing smptoms, discussing HEP and activities at home, discussing nutrition, discussing fueling correctly 2: LTR x 10 reps each side 3: SLR x 15 reps each LE 4: s/l hip abduction x 15 reps each LE 6: seated hamstring stretch x 30 sec x 2 reps each LE 7: Review of gym exercises, disucssed machines and strengtheing activities Skilled Intervention: Patient was educated in proper exercise technique and purpose for exercises. Reviewed and educated patient on additions/changes for home exercise program as above (*). Skilled judgment was used in selection of appropriate interventions. Correct performance of therapeutic exercises was facilitated with verbal, visual, and tactile cuing. Educated patient on rationale for performing exercises in regards to decreasing fatigue , improving fitness, increase ease of ADL, and ROM and function . Patient education as noted. Neuromuscular Re-Education: 1: *hooklying hip flexion isometric alt UE/LE x 5 sec hold x 10 reps 2: *bridge with december x 10 reps Skilled Intervention: Skilled judgment used to assess appropriate program for balance and coordination activity. Education in proprioceptive/kinesthetic awareness during standing and dynamic activities. Reviewed and educated patient on additions/changes for home program as noted above with an (*). Correct performance of home program was facilitated with verbal, visual, and tactile cueing. Patient education as noted. Billing Therapeutic Exercise Treatment Minutes: 22 Neuromuscular Re-Education Treatment Minutes: 16 Skilled Treatment Time Minutes (timed and untimed codes): 38 Total Session Time (minutes): 39 Session Start Time : 1525 Session Stop Time : 1604 Nella Dupont PT [facility] 05-27-2024 History of Presen t illness Narrative Program_ID:[id number] Access Code: [email or web address] URL: [email or web address] Date: 05-27-2024 Prepared By: Nella Dupont Program Notes Exercises - Supine Bridge - 1-2 x daily - 7 x weekly - 1 sets - 10-15 reps - Active Straight Leg Raise with Quad Set - 1-2 x daily - 7 x weekly - 1 sets - 10 reps - Sidelying Hip Abduction - 1-2 x daily - 7 x weekly - 1-2 sets - 10-15 reps - Seated Hamstring Stretch - 1 x daily - 7 x weekly - sets - 2 reps Images from the original note were not included. Episode Visit Count: 1 Therapist That Will Accept/Oversee The Plan Of Care: Nella Dupont Start of Care Date: 05/27/24 Onset Date: 11/02/18 Plan of Care Certification Date: 05/27/24 Next Certification Due Date: 07/26/24 Patient Identified by Name and Date of : Yes REHABILITATION AND SPORTS THERAPY PHYSICAL THERAPY EVALUATION PLAN OF CARE: Assessment: Aurora Montague presents with chief complaint of hip pain that interferes with rising from a chair, standing, walking, sitting, stair negotiation, heavy exertion, physical activities, recreational activities . She presents with impairments in ADL's, balance, overall function, range of motion, strength, symptom management, and tissue tenderness. PROMIS (Patient-Reported Outcomes Measurement Information System) scores were reviewed and identified as a rehabilitation concern. Prognosis for therapy is Fair due to: clinical presentation, chronic nature of impairments . She will benefit from skilled therapy services to meet the goals established for this plan of care as noted below. Because of above mentioned impairments and past medical history patient qualifies as a low complexity evaluation. Goals for Episode of Care: created on 05/27/24 through 07/26/24 [place] in home exercise program. Patient will decrease pain rating by 2 points to meet minimal clinical important difference for numeric pain rating scale. Patient will demonstrate increase in R LE strength to 4+/5 during manual muscle testing in order to improve function for basic self-care tasks, home management tasks, and moderate to heavy functional tasks. Patient will increase flexibility of bilateral hamstrings to WNL to improve ability to maintain proper posture, improve mechanics, and decrease pain. Perform ADLs and work duties with decreased report of symptoms/pain in 8 weeks. Patient Goals: Out of pain so I can do my job Planned Interventions, Frequency, and Duration: Current Frequency: 1x every other week Duration: 8 weeks Total Number of Visits Planned: 4 Planned Treatment Interventions: Neuromuscular re-education (06493), Therapeutic exercise (20411), Manual therapy (70413), Therapeutic activities (34390), Self-halfway management (03090), Gait Training (60204), Patient/Family/Caregiver Education PLAN FOR NEXT VISIT: Review HEP, LE strength Patient demonstrates good understanding of plan of care and treatment. The above goals and plan of care were discussed and agreed upon by patient/family. SUBJECTIVE: Patient was late to appointment. Patient reports that she had come in for her neck before, however couldn't have the follow ups because she had work conflicts. Is coming in for her hip today. Her hip has always bothered her. It got worse over the past few years. Has had trouble walking up and down stairs. States she has had 7+ falls in the past year. 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 It runs in her family. 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 Recreation / Current Exercise: Lifting, Hiking, Kayaking Hobbies / Interests: Gardening Intake Information: Prescription present Previous Treatment: (Anxiety medication, I smoke ) Falls Interview: Two or more falls in the last year Falls Intervention: More thorough falls assessment to be performed Pain: Pain Pain Level: 5 Pain Location: Hip - Right Description: Aching Frequency: Continuous Post Treatment Pain Post Treatment Pain Level: Better PROMIS Scales 05/26/2024 03/18/2024 02/18/2024 Higher is Better Phys Func - Score 39 (moderate dysfunction) 41 (mild dysfunction) 41 (mild dysfunction) Phys Func - Percentile 14 18 18 Self-Eff Symptom - Score 37 (Low) 37 (Low) Self-Eff Symptom - Percentile 10 10 T-scores: mean of general population = 50. 5 points is clinically meaningfully difference Percentiles provide an indication of how the patient's score ranks in relation to the general population. Higher percentile rankings indicate better function/quality of life. 50th percentile is the average of the general population and indicates half of respondents had a worse score. OBJECTIVE MEASURES WITH LEVEL OF FUNCTION: LE AROM R LE AROM: WNL L LE AROM: WNL LE Flexibility Flexibility: Hamstring Flexibility R Hamstring Flexibility: min restriction L Hamstring Flexibility: min restriction LE Strength R Hip Extension: 4/5 R Hip Flexion (L2): 4/5 R Hip ABduction: 4-/5 R Knee Extension (L3): 4+/5 R Knee Flexion: 4+/5 L Hip Extension: 4/5 L Hip Flexion (L2): 4+/5 L Hip ABduction: 4+/5 L Knee Extension (L3): 4+/5 L Knee Flexion: 4+/5 Special Tests - Hip and Spine Hip and Spine Special Tests: SLR Test, FADDIR Test, ERICKA Test SLR Test: Right Negative, Left Negative ERICKA Test: Right Negative, Left Negative FADDIR Test: Right Negative, Left Negative Gait Gait: Independent Education: Education Learning Preferences: Demonstration, Printed Materials, Performance, Explanation Barriers: None Learning/educational needs: Home exercise program, Plan of Care, Posture, Health promotion, Lifestyle changes Education Provided: Yes, see treatment interventions for education provided Education Provided To: Patient Education Mode/Type: Demonstration, Explanation/Discussion, Literature/Printed Materials, Performance, Teach Back Response to Education/Teach Back: States/Identifies, Return Demonstration TREATMENT: PT Treatment Interventions: Therapeutic Exercise, Self-Prison Management Evaluation Evaluation Therapeutic Exercise: 1: *SLR x 15 reps each LE 2: *s/l hip abduction x 15 reps each LE 3: *bridges x 15 reps 4: *seated hamstring stretch x 30 sec x 2 reps each LE Skilled Intervention: Patient was educated in proper exercise technique and purpose for exercises. Reviewed and educated patient on additions/changes for home exercise program as above (*). Skilled judgment was used in selection of appropriate interventions. Correct performance of therapeutic exercises was facilitated with verbal, visual, and tactile cuing. Educated patient on rationale for performing exercises in regards to decreasing fatigue , improving fitness, increase ease of ADL, and ROM and function . Patient education as noted. Self-Prison Management: 1: Patient educated on impairments noted this visit, discussed possible causes of pain, discussed treatment to address impairments to improve pain and function 2: Patient educated on plan of care and treatment 3: Patient educated on HEP and importance of compliance Skilled Intervention: Skilled judgment in the selection of proper modification for activity of daily living/home management based on clinical presentation, deficits, and needs. Reviewed patient specific diagnosis in relation to activities of daily living/home management. Activity progression based on professional judgement. Billing * Evaluation Low Complexity: 1 Unit Therapeutic Exercise Treatment Minutes: 10 Self-Care/Home Management Treatment Minutes: 5 Skilled Treatment Time Minutes (timed and untimed codes): 29 Total Session Time (minutes): 29 Session Start Time : 1408 Session Stop Time : 1437 Nella Dpuont PT documented in this encounter [facility] 05-27-2024 Note HNO ID: [id number] Author: NELLA DUPONT PT Service: ? Author Type: Physical Therapist Type: Progress Notes Filed: 05/27/2024 15:06 Note Text: Episode Visit Count: 1 Therapist That Will Accept/Oversee The Plan Of Care: Nella Dupont Start of Care Date: 05/27/24 Onset Date: 11/02/18 Plan of Care Certification Date: 05/27/24 Next Certification Due Date: 07/26/24 Patient Identified by Name and Date of : Yes REHABILITATION AND SPORTS THERAPY PHYSICAL THERAPY EVALUATION PLAN OF CARE: Assessment: Aurora Montague presents with chief complaint of hip pain that interferes with rising from a chair, standing, walking, sitting, stair negotiation, heavy exertion, physical activities, recreational activities . She presents with impairments in ADL's, balance, overall function, range of motion, strength, symptom management, and tissue tenderness. PROMIS? (Patient-Reported Outcomes Measurement Information System) scores were reviewed and identified as a rehabilitation concern. Prognosis for therapy is Fair due to: clinical presentation, chronic nature of impairments . She will benefit from skilled therapy services to meet the goals established for this plan of care as noted below. Because of above mentioned impairments and past medical history patient qualifies as a low complexity evaluation. Goals for Episode of Care: created on 05/27/24 through 07/26/24 [place] in home exercise program. Patient will decrease pain rating by 2 points to meet minimal clinical important difference for numeric pain rating scale. Patient will demonstrate increase in R LE strength to 4+/5 during manual muscle testing in order to improve function for basic self-care tasks, home management tasks, and moderate to heavy functional tasks. Patient will increase flexibility of bilateral hamstrings to WNL to improve ability to maintain proper posture, improve mechanics, and decrease pain. Perform ADLs and work duties with decreased report of symptoms/pain in 8 weeks. Patient Goals: Out of pain so I can do my job Planned Interventions, Frequency, and Duration: Current Frequency: 1x every other week Duration: 8 weeks Total Number of Visits Planned: 4 Planned Treatment Interventions: Neuromuscular re-education (17494), Therapeutic exercise (72206), Manual therapy (02132), Therapeutic activities (54904), Self-halfway management (10506), Gait Training (89157), Patient/Family/Caregiver Education PLAN FOR NEXT VISIT: Review HEP, LE strength Patient demonstrates good understanding of plan of care and treatment. The above goals and plan of care were discussed and agreed upon by patient/family. SUBJECTIVE: Patient was late to appointment. Patient reports that she had come in for her neck before, however couldn't have the follow ups because she had work conflicts. Is coming in for her hip today. Her hip has always bothered her. It got worse over the past few years. Has had trouble walking up and down stairs. States she has had 7+ falls in the past year. 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 It runs in her family. 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 Recreation / Current Exercise: Lifting, Hiking, Kayaking Hobbies / Interests: Gardening Intake Information: Prescription present Previous Treatment: (Anxiety medication, I smoke ) Falls Interview: Two or more falls in the last year Falls Intervention: More thorough falls assessment to be performed Pain: Pain Pain Level: 5 Pain Location: Hip - Right Description: Aching Frequency: Continuous Post Treatment Pain Post Treatment Pain Level: Better PROMIS Scales 05/26/2024 03/18/2024 02/18/2024 Higher is Better Phys Func - Score 39 (moderate dysfunction) 41 (mild dysfunction) 41 (mild dysfunction) Phys Func - Percentile 14 18 18 Self-Eff Symptom - Score 37 (Low) 37 (Low) Self-Eff Symptom - Percentile 10 10 T-scores: mean of general population = 50. 5 points is clinically meaningfully difference Percentiles provide an indication of how the patient's score ranks in relation to the general population. Higher percentile rankings indicate better function/quality of life. 50th percentile is the average of the general population and indicates half of respondents had a worse score. OBJECTIVE MEASURES WITH LEVEL OF FUNCTION: LE AROM R LE AROM: WNL L LE AROM: WNL LE Flexibility Flexibility: Hamstring Flexibility R Hamstring Flexibility: min restr (more content not included)... [facility] 04-27-2024 Telephone encounter Note Call to [facility], spoke to Kenia. Resubmitted additional information via fax to . Dottie Kirby RN [facility] 04-27-2024 Telephone encounter Note Images from the original note were not included. [facility] 04-27-2024 Miscellaneous Notes Call to [facility], spoke to Kenia. Resubmitted additional information via fax to . Dottie Kirby RN Images from the original note were not included. documented in this encounter [facility] 04-26-2024 Nurse Note POST OP LEARNING RESPONSE INSTRUCTION PROVIDED TO: Patient and family member METHOD OF INSTRUCTION: Individual instruction Written instruction/Handouts Verbal instruction PATIENT / FAMILY RESPONSE: Information received as demonstrated by interest and questions FOLLOW-UP PLAN: Recommend - Recommend continued instruction and follow up as directed SUPPLEMENTAL MATERIAL: Post op discharge instructions Post sedation instructions given REFERRAL (RECOMMENDATION): None Electronically Signed By: Maribell Becerra RN In Department: AMBULATORY SURGERY [facility] 04-26-2024 Nurse Note POST OP LEARNING RESPONSE INSTRUCTION PROVIDED TO: Patient and family member METHOD OF INSTRUCTION: Individual instruction Written instruction/Handouts Verbal instruction PATIENT / FAMILY RESPONSE: Information received as demonstrated by interest and questions FOLLOW-UP PLAN: Recommend - Recommend continued instruction and follow up as directed SUPPLEMENTAL MATERIAL: Post op discharge instructions Post sedation instructions given REFERRAL (RECOMMENDATION): None Electronically Signed By: Maribell Becerra RN In Department: AMBULATORY SURGERY PRE OP LEARNING ASSESSMENT PROCEDURE/SURGERY: GI PROCEDURES: Colonoscopy and EGD READINESS TO LEARN COGNITIVE ABILITY: Alert and oriented MOTIVATION TO LEARN: Interested FAMILY SUPPORT: High - Very involved in pt care PATIENT LEARNS BEST BY: Individual Instruction Written Instruction - Hand-outs Verbal Instruction FACTORS AFFECTING LEARNING: None PHYSICAL LIMITATIONS AFFECTING LEARNING: None Electronically Signed By: Tracie Willams RN In Department: AMBULATORY SURGERY documented in this encounter [facility] 04-26-2024 History and physical note SEDATION HISTORY AND PHYSICAL EXAM SERVICE DATE: 04/26/2024 SERVICE TIME: 11:01 AM Subjective HPI: This is a 49 year old female who presents with GERD, PUD, rectal bleeding, abd pain PAST ANESTHESIA HISTORY: No history of adverse event History reviewed. No pertinent past medical history. PAST SURGICAL HISTORY Procedure Laterality Date BACK SURGERY HX velma c4-c7 decompression and fusion COLONOSCOPY SCREENING EGD DIAGNOSTIC VAGINAL HYSTERECTOMY partial hysterectomy Prior to Admission medications as of 04/26/24 1036 Medication Sig Last Dose Taking buPROPion XL (WELLBUTRIN XL) 300 mg 24 hr tablet Every morning Yes Cetirizine 10 mg cap Yes clonazePAM (KLONOPIN) 0.5 mg tablet Take 1 mg by mouth every 12 hours. Yes esomeprazole (NEXIUM) 40 mg capsule 1 capsule. Yes famotidine (PEPCID) 10 mg tablet Yes sertraline (ZOLOFT) 100 mg tablet Take 100 mg by mouth every morning. Yes oxybutynin ER (DITROPAN XL) 15 mg 24 hr Extended Rel Tab Take 1 tablet by mouth every afternoon. Yes ALLERGIES Allergen Reactions Morphine Vomiting Nsaids (Non-Steroid* Unknown Stomach upset , GI Issues, bleeding Steroids [Corticost* Unknown PT states Bleeding Objective PHYSICAL EXAM: The remainder of the physical exam is noncontributory. AIRWAY: Airway Visualization of Uvula: Yes Mouth opening greater than 2 fingerbreadths: Yes Neck Full Range of Motion: Yes LUNGS: Lungs clear to auscultation CARDIAC: Regular rhythm,Regular rate Assessment/Plan ASA Class: ASA Class:: Patient with mild systemic disease Active Problems: GERD, PUD, rectal bleeding, abd pain Provisional Diagnosis/Treatment Plan: EGD Colonoscopy Procedure was discussed with the patient including risks of oversedation, bleeding, and perforation. Patient agreed to proceed. SEDATION GOAL: Anesthesia SIGNATURE: Ashley Shah MD PATIENT NAME: Aurora Montague DATE: April 26, 2024 TIME: 11:01 AM [facility] 04-26-2024 History and physical note SEDATION HISTORY AND PHYSICAL EXAM SERVICE DATE: 04/26/2024 SERVICE TIME: 11:01 AM Subjective HPI: This is a 49 year old female who presents with GERD, PUD, rectal bleeding, abd pain PAST ANESTHESIA HISTORY: No history of adverse event History reviewed. No pertinent past medical history. PAST SURGICAL HISTORY Procedure Laterality Date BACK SURGERY HX velma c4-c7 decompression and fusion COLONOSCOPY SCREENING EGD DIAGNOSTIC VAGINAL HYSTERECTOMY partial hysterectomy Prior to Admission medications as of 04/26/24 1036 Medication Sig Last Dose Taking buPROPion XL (WELLBUTRIN XL) 300 mg 24 hr tablet Every morning Yes Cetirizine 10 mg cap Yes clonazePAM (KLONOPIN) 0.5 mg tablet Take 1 mg by mouth every 12 hours. Yes esomeprazole (NEXIUM) 40 mg capsule 1 capsule. Yes famotidine (PEPCID) 10 mg tablet Yes sertraline (ZOLOFT) 100 mg tablet Take 100 mg by mouth every morning. Yes oxybutynin ER (DITROPAN XL) 15 mg 24 hr Extended Rel Tab Take 1 tablet by mouth every afternoon. Yes ALLERGIES Allergen Reactions Morphine Vomiting Nsaids (Non-Steroid* Unknown Stomach upset , GI Issues, bleeding Steroids [Corticost* Unknown PT states Bleeding Objective PHYSICAL EXAM: The remainder of the physical exam is noncontributory. AIRWAY: Airway Visualization of Uvula: Yes Mouth opening greater than 2 fingerbreadths: Yes Neck Full Range of Motion: Yes LUNGS: Lungs clear to auscultation CARDIAC: Regular rhythm,Regular rate Assessment/Plan ASA Class: ASA Class:: Patient with mild systemic disease Active Problems: GERD, PUD, rectal bleeding, abd pain Provisional Diagnosis/Treatment Plan: EGD Colonoscopy Procedure was discussed with the patient including risks of oversedation, bleeding, and perforation. Patient agreed to proceed. SEDATION GOAL: Anesthesia SIGNATURE: Ashley Shah MD PATIENT NAME: Aurora Montague DATE: April 26, 2024 TIME: 11:01 AM documented in this encounter [facility] 04-26-2024 Nurse Note PRE OP LEARNING ASSESSMENT PROCEDURE/SURGERY: GI PROCEDURES: Colonoscopy and EGD READINESS TO LEARN COGNITIVE ABILITY: Alert and oriented MOTIVATION TO LEARN: Interested FAMILY SUPPORT: High - Very involved in pt care PATIENT LEARNS BEST BY: Individual Instruction Written Instruction - Hand-outs Verbal Instruction FACTORS AFFECTING LEARNING: None PHYSICAL LIMITATIONS AFFECTING LEARNING: None Electronically Signed By: Tracie Willams RN In Department: AMBULATORY SURGERY [facility] 03-21-2024 History of Presen t illness Narrative Radiology Service Progress Note DATE OF SERVICE: March 21, 2024 TIME: 8:10 AM PATIENT IDENTITY VERIFICATION COMPLETED USING TWO (2) STANDARD IDENTIFIERS: Name and Date of confirmed by patient verbally and Name and Date of confirmed by identification band. FALL SCREENING: Has the patient had 2 falls in the last year or 1 fall with injury or currently using an Ambulatory Assistive Device (Walker, Cane, Wheelchair, Crutches, etc.)? No PATIENT GENDER DATA: Female. status: : No status: NO. PATIENT RELEVANT IMPLANT DATA REVIEWED: Not Applicable PATIENT PRESENTS WITH AN IMPLANTABLE OR ATTACHED LOGGING WORKER: No ALLERGIES: Reviewed and unchanged CONTRAST ALLERGY: NO. EXAM: CT -CONTRAST INDUCED NEPHROPATHY RISK FACTORS: Not applicable CREATININE: Creatinine Date Value Ref Range Status 02/29/2024 1.03 (H) 0.58 - 0.96 mg/dL Final Estimated Glomerular Filtration Rate Date Value Ref Range Status 02/29/2024 68 >=60 mL/min/1.73m Final Comment: Estimated Glomerular Filtration Rate (eGFR) is calculated using the 2020 CKD-EPI creatinine equation. This equation utilizes serum creatinine, sex, and age as parameters. The creatinine assay has traceable calibration to isotope dilution-mass spectrometry. Refer to KDIGO guidelines for clinical interpretation. In patients with unstable renal function, e.g. those with acute kidney injury, the eGFR may not accurately reflect actual GFR. P.O.C.T. RESULTS: POC done: Yes, See Lab Tab March 21, 2024 TREATMENT: N/A PERIPHERAL IV DATA: Ambulatory: A peripheral IV was started in the Right antecubital site with a Angio cath: 22 gauge. RADIOLOGY DEPARTMENT: CT; Exam(s) Completed: Abdomen/Pelvis SIGNATURE: RT Joanie(Abel) PATIENT NAME: Aurora Montague DATE: March 21, 2024 TIME: 8:10 AM documented in this encounter [facility] 03-21-2024 Note HNO ID: [id number] Author: DELFINA ELLINGTON RT(R) Service: ? Author Type: Technologist Type: Progress Notes Filed: 03/21/2024 08:28 Note Text: Radiology Service Progress Note DATE OF SERVICE: March 21, 2024 TIME: 8:10 AM PATIENT IDENTITY VERIFICATION COMPLETED USING TWO (2) STANDARD IDENTIFIERS: Name and Date of confirmed by patient verbally and Name and Date of confirmed by identification band. FALL SCREENING: Has the patient had 2 falls in the last year or 1 fall with injury or currently using an Ambulatory Assistive Device (Walker, Cane, Wheelchair, Crutches, etc.)? No PATIENT GENDER DATA: Female. status: : No status: NO. PATIENT RELEVANT IMPLANT DATA REVIEWED: Not Applicable PATIENT PRESENTS WITH AN IMPLANTABLE OR ATTACHED LOGGING WORKER: No ALLERGIES: Reviewed and unchanged CONTRAST ALLERGY: NO. EXAM: CT -CONTRAST INDUCED NEPHROPATHY RISK FACTORS: Not applicable CREATININE: Creatinine Date Value Ref Range Status 02/29/2024 1.03 (H) 0.58 - 0.96 mg/dL Final Estimated Glomerular Filtration Rate Date Value Ref Range Status 02/29/2024 68 >=60 mL/min/1.73m? Final Comment: Estimated Glomerular Filtration Rate (eGFR) is calculated using the 2020 CKD-EPI creatinine equation. This equation utilizes serum creatinine, sex, and age as parameters. The creatinine assay has traceable calibration to isotope dilution-mass spectrometry. Refer to KDIGO guidelines for clinical interpretation. In patients with unstable renal function, e.g. those with acute kidney injury, the eGFR may not accurately reflect actual GFR. P.O.C.T. RESULTS: POC done: Yes, See Lab Tab March 21, 2024 TREATMENT: N/A PERIPHERAL IV DATA: Ambulatory: A peripheral IV was started in the Right antecubital site with a Angio cath: 22 gauge. RADIOLOGY DEPARTMENT: CT; Exam(s) Completed: Abdomen/Pelvis SIGNATURE: RT Joanie(R) PATIENT NAME: Aurora Montague DATE: March 21, 2024 TIME: 8:10 AM [facility] 03-18-2024 History of Presen t illness Narrative Program_ID:[id number] Access Code: [email or web address] URL: [email or web address] Date: 03-18-2024 Prepared By: Dunia Aranda Program Notes Exercises - Scapular Retraction with Resistance - 1 x daily - 7 x weekly - 2 sets - 15 reps - Scapular Retraction with Resistance Advanced - 1 x daily - 7 x weekly - 2 sets - 15 reps - Standing Shoulder Horizontal Abduction with Resistance - 1 x daily - 7 x weekly - 2 sets - 15 reps Images from the original note were not included. Episode Visit Count: 1 Therapist That Will Accept/Oversee The Plan Of Care: Dunia Aranda Start of Care Date: 03/18/24 Onset Date: 11/02/23 Plan of Care Certification Date: 03/18/24 Next Certification Due Date: 05/17/24 Patient Identified by Name and Date of : Yes REHABILITATION AND SPORTS THERAPY PHYSICAL THERAPY EVALUATION PLAN OF CARE: Assessment: Aurora Montague presents with chief complaint of neck pain that interferes with physical activities, reaching overhead, working, lifting, recreational activities, gripping . She presents with impairments in ADL's, overall function, posture, strength, and tissue tenderness. PROMIS (Patient-Reported Outcomes Measurement Information System) scores were reviewed and identified as a rehabilitation concern. Prognosis for therapy is Fair due to: clinical presentation, chronic nature of impairments . She will benefit from skilled therapy services to meet the goals established for this plan of care as noted below. Patient's symptoms are predicted to improve appropriately with physical therapy. Pt presents with personal factors/comorbidities that may affect expected progress. Patient demonstrates moderate disability/functional limitations based on functional outcome measure score. Evaluation required moderate decision making skills. Goals for Episode of Care: created on 03/18/24 through 05/13/24 Pt will exhibit proper posturing and scapular retraction throughout session to aid in postural awareness and optimal mechanics through functional tasks of daily living. [place] in home exercise program. Patient will decrease pain to 1/10 with functional activities to allow patient to improve tolerance through ADLs. Restore pain free cervical ROM to WNL to allow for improved tolerance through ADLs. Patient Goals: to reduce pain Planned Interventions, Frequency, and Duration: Current Frequency: 1x/week Duration: 8 weeks Total Number of Visits Planned: 8 Planned Treatment Interventions: Therapeutic exercise (56048), Neuromuscular re-education (18168), Manual therapy (13255), Therapeutic activities (60354), Self-halfway management (94966), Patient/Family/Caregiver Education, Body Mechanics Training PLAN FOR NEXT VISIT: Continue addressing cervical mobility and postural strengthening as tolerated. Patient demonstrates good understanding of plan of care and treatment. The above goals and plan of care were discussed and agreed upon by patient/family. SUBJECTIVE: Pt presents with neck pain. H/o Anterior cervical C4/5, C5/6, C6/7 discectomy, C5, C6 corpectomy and fusion on 11/18/16. She states she did continue to have radicular symptoms into LUE and that has progressively worsened and now goes into RUE. Aggravating factors include lifting (particularly with shoulder press), reaching overhead, working, and c/o cramping. N/T presently intermittently, R>L. Does admit to dizziness, but is unsure if it is related to neck or abdominal issues. 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 Infection Clinical Reasoning: No identified risk factors. Cervical Arterial Dysfunction: Dizziness Cervical Arterial Dysfunction Clinical Reasoning: Proceed with caution Cervical Myelopathy: Age > 45 yo Cervical Myelopathy Diagnostic Rule: Proceed with caution Red Flags - Cervical Cancer Clinical Reasoning: No identified risk factors. Infection Clinical Reasoning: No identified risk factors. Cervical Arterial Dysfunction: Dizziness Cervical Arterial Dysfunction Clinical Reasoning: Proceed with caution Cervical Myelopathy: Age > 45 yo Cervical Myelopathy Diagnostic Rule: Proceed with caution Spine History Symptoms Location at Onset: Neck, Arm, Forearm, Hand Symptoms Since Onset: Unchanging Pain is Worse Sometimes: Prolonged positions Pain is Better Sometimes: Rest Sleep Affected by Pain: Not affected by pain Pain: Pain Pain Level: 1 Pain Location: Neck Description: Burning, Sharp Frequency: Intermittent, With movement Post Treatment Pain Post Treatment Pain Level: No Change PROMIS Scales 03/18/2024 02/18/2024 Higher is Better Phys Func - Score 41 (mild dysfunction) 41 (mild dysfunction) Phys Func - Percentile 18 18 Self-Eff Symptom - Score 37 (Low) Self-Eff Symptom - Percentile 10 T-scores: mean of general population = 50. 5 points is clinically meaningfully difference Percentiles provide an indication of how the patient's score ranks in relation to the general population. Higher percentile rankings indicate better function/quality of life. 50th percentile is the average of the general population and indicates half of respondents had a worse score. OBJECTIVE MEASURES WITH LEVEL OF FUNCTION: Posture / Alignment Posture: Rounded shoulders, Forward head Spine Observations R Cervical Spine Palpation Tenderness: Paraspinals L Cervical Spine Palpation Tenderness: Paraspinals Sensation - Cervical Spine Cervical Spine Sensation: Dermatomes Cervical Spine Sensation - Dermatomes: C7 3rd Digit Cervical Spine ROM Cervical ROM : Measurement AROM Cervical Flexion AROM (degrees) : 40 Degrees Cervical Extension AROM (degrees) : 40 Degrees Cervical Side-Bend Right AROM (degrees): 30 Degrees Cervical Side-Bend Left AROM (degrees) : 20 Degrees (painful) Cervical Rotation Right AROM (degrees) : 60 Degrees (painful) Cervical Rotation Left AROM (degrees) : 60 Degrees (painful) UE AROM R UE AROM: WFL L UE AROM: WFL (increase in radicular symptoms with flexion) UE and Cervical Strength Strength Tested: Shoulder All, Hand R Shoulder Flexion: 5/5 R Shoulder Abduction (C5): 5/5 R Shoulder Internal Rotation: 5/5 R Shoulder External Rotation: 5/5 R Upper Trapezius: 5/5 R Middle Trapezius: 5/5 R Lower Trapezius: 5/5 R Elbow Extension (C7): 4+/5 R Elbow Flexion (C6): 5/5 L Shoulder Flexion: 5/5 L Shoulder Abduction (C5): 5/5 L Shoulder Internal Rotation: 5/5 L Shoulder External Rotation: 5/5 L Upper Trapezius: 5/5 L Middle Trapezius: 5/5 L Lower Trapezius: 5/5 L Elbow Extension (C7): 4+/5 L Elbow Flexion (C6): 5/5 Hand Strength R Pearl Digger Position 1 (lbs): 78 lbs R Pearl Digger Position 2 (lbs): 65 lbs R Pearl Digger Position 3 (lbs): 55 lbs L Pearl Digger Position 1 (lbs): 70 lbs L Pearl Digger Position 2 (lbs): 80 lbs L Pearl Digger Position 3 (lbs): 70 lbs Education: Education Learning Preferences: Demonstration, Explanation, Performance, Printed Materials Barriers: None Learning/educational needs: Home exercise program, Plan of Care Education Provided: Yes, see treatment interventions for education provided Education Provided To: Patient Education Mode/Type: Demonstration, Explanation/Discussion, Literature/Printed Materials, Performance, Teach Back Response to Education/Teach Back: States/Identifies, Return Demonstration TREATMENT: PT Treatment Interventions: Therapeutic Exercise, Self-Prison Management Evaluation Evaluation Therapeutic Exercise: 1: *scapular row x15 GTB 2: *scap retrac c shldr ext x15 GTB 3: *B HAbd x10 RTB 4: review of cervical ROM HEP previously performed Skilled Intervention: Patient was educated in proper exercise technique and purpose for exercises. Reviewed and educated patient on additions/changes for home exercise program as above (*). Skilled judgment was used in selection of appropriate interventions. Provided written instruction for home exercise program to facilitate proper performance and compliance. Correct performance of therapeutic exercises was facilitated with verbal and tactile cuing. Patient education as noted. Self-Prison Management: 1: education through diagnosis, prognosis, HEP, plan of care 2: review of current exercise routine and appropriate activity modification/dosing Skilled Intervention: Skilled judgment in the selection of proper modification for activity of daily living/home management based on clinical presentation, deficits, and needs. Reviewed patient specific diagnosis in relation to activities of daily living/home management. Billing * Evaluation Moderate Complexity: 1 Unit Therapeutic Exercise Treatment Minutes: 18 Self-Care/Home Management Treatment Minutes: 8 Skilled Treatment Time Minutes (timed and untimed codes): 46 Total Session Time (minutes): 46 Session Start Time : 1400 Session Stop Time : 1446 Dunia Aranda PT, DPT documented in this encounter [facility] 03-18-2024 Note HNO ID: [id number] Author: DUNIA ARANDA PT, DPT Service: ? Author Type: Physical Therapist Type: Progress Notes Filed: 03/18/2024 15:15 Note Text: Episode Visit Count: 1 Therapist That Will Accept/Oversee The Plan Of Care: Dunia Aranda Start of Care Date: 03/18/24 Onset Date: 11/02/23 Plan of Care Certification Date: 03/18/24 Next Certification Due Date: 05/17/24 Patient Identified by Name and Date of : Yes REHABILITATION AND SPORTS THERAPY PHYSICAL THERAPY EVALUATION PLAN OF CARE: Assessment: Aurora Montague presents with chief complaint of neck pain that interferes with physical activities, reaching overhead, working, lifting, recreational activities, gripping . She presents with impairments in ADL's, overall function, posture, strength, and tissue tenderness. PROMIS? (Patient-Reported Outcomes Measurement Information System) scores were reviewed and identified as a rehabilitation concern. Prognosis for therapy is Fair due to: clinical presentation, chronic nature of impairments . She will benefit from skilled therapy services to meet the goals established for this plan of care as noted below. Patient's symptoms are predicted to improve appropriately with physical therapy. Pt presents with personal factors/comorbidities that may affect expected progress. Patient demonstrates moderate disability/functional limitations based on functional outcome measure score. Evaluation required moderate decision making skills. Goals for Episode of Care: created on 03/18/24 through 05/13/24 Pt will exhibit proper posturing and scapular retraction throughout session to aid in postural awareness and optimal mechanics through functional tasks of daily living. [place] in home exercise program. Patient will decrease pain to 1/10 with functional activities to allow patient to improve tolerance through ADLs. Restore pain free cervical ROM to WNL to allow for improved tolerance through ADLs. Patient Goals: to reduce pain Planned Interventions, Frequency, and Duration: Current Frequency: 1x/week Duration: 8 weeks Total Number of Visits Planned: 8 Planned Treatment Interventions: Therapeutic exercise (64029), Neuromuscular re-education (92539), Manual therapy (40090), Therapeutic activities (79332), Self-halfway management (17455), Patient/Family/Caregiver Education, Body Mechanics Training PLAN FOR NEXT VISIT: Continue addressing cervical mobility and postural strengthening as tolerated. Patient demonstrates good understanding of plan of care and treatment. The above goals and plan of care were discussed and agreed upon by patient/family. SUBJECTIVE: Pt presents with neck pain. H/o Anterior cervical C4/5, C5/6, C6/7 discectomy, C5, C6 corpectomy and fusion on 11/18/16. She states she did continue to have radicular symptoms into LUE and that has progressively worsened and now goes into RUE. Aggravating factors include lifting (particularly with shoulder press), reaching overhead, working, and c/o cramping. N/T presently intermittently, R>L. Does admit to dizziness, but is unsure if it is related to neck or abdominal issues. 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 Infection Clinical Reasoning: No identified risk factors. Cervical Arterial Dysfunction: Dizziness Cervical Arterial Dysfunction Clinical Reasoning: Proceed with caution Cervical Myelopathy: Age > 45 yo Cervical Myelopathy Diagnostic Rule: Proceed with caution Red Flags - Cervical Cancer Clinical Reasoning: No identified risk factors. Infection Clinical Reasoning: No identified risk factors. Cervical Arterial Dysfunction: Dizziness Cervical Arterial Dysfunction Clinical Reasoning: Proceed with caution Cervical Myelopathy: Age > 45 yo Cervical Myelopathy Diagnostic Rule: Proceed with caution Spine History Symptoms Location at Onset: Neck, Arm, Forearm, Hand Symptoms Since Onset: Unchanging Pain is Worse Sometimes: Prolonged positions Pain is Better Sometimes: Re (more content not included)... [facility] 03-11-2024 History of Presen t illness Narrative Images from the original note were not included. [facility] Low back pain - chronic follow up Exam SUBJECTIVE HISTORY OF PRESENT ILLNESS: Aurora Montague is a 48 year old female who presents with a chief complaint of low back and leg pain. Here today for evaluation of her low back pain. Pain is located in midline to bilateral low back. Duration: 20+ years Radiates to: right lateral hip to right lateral thigh to knee. Pain in Right > left groin radiating to medial thigh. Intermittent pain in bilateral posterior lower legs with walking on treadmill for 30 min. Burning and heavy sensation throughout both legs with going up stairs. Intermittent pain at the ankles. Sometimes with walking she feels like the right leg gives out at the hip or thigh. Sometimes she notices that she walks on the lateral part of her feet. Numbness/tingling: bilateral feet - comes and goes. No progressive leg weakness. Urinary leakage with coughing/sneezing. Otherwise normal sensation and bale to use the restroom ok. Seen by GI 02/29/24 for generalized abdominal pain since age 19. CT abd/pel w contrast ordered as well as EGD and colonoscopy. Interventions: Medications: Wellbutrin (300mg qAM), Zoloft (100mg qAM), Klonopin (1mg BID) -Previously tried: [place], robaxin, diclofenac 75mg BID ,medrol dose pack (11/27/22), prednisone (01/26/23), naproxen - GI bleed/ulcer -tylenol - no relief -topicals - no relief -stopped NSAIDs due to GI issues Physical therapy: -scheduled to start PT for neck pain 03/18/24 -completed 4 weeks December 2022 for neck - caused more pain -PT for low back was 2021 at [facility] Previous spine injection history: none - states nervous of injections Previous spine surgery: -11/18/2016 : Anterior cervical C4/5, C5/6, C6/7 discectomy, C5, C6 corpectomy and fusion with iliac strut graft and Invizia plate with Dr. Harvey at [facility] Office visit 02/19/24: Pain is currently 2/10. Will increase to 6/10 at its worst (neck). She was last seen 03/10/23 for neck and arm symptoms. Has since completed CT, MRI and EMG. In May she stretched one day and her left shoulder popped and her pain improved. The pain radiating pain she had into the left arm is now better. Burning in posterior neck. Stiffness. Constant. Radiates to: bilateral shoulder blades - comes and goes. Tension headaches from back of the head and sometimes the entire head. Burning pain around the left elbow. Intermittent spasms in the left arm or sides. Sharp, nerve pain in bilateral hands and all the fingers. Comes and goes. Difficulty with right hand - drops things at times. Some dexterity issues. States this has gotten a little worse in the right hand. Still weakness in the left tricep. Unchanged. She feels off balance - mildly increased over time. Numbness/tingling: all the fingers. Comes and goes. She has intermittent numbness across the bilateral upper and lower jaw which started around June 2022. Urinary leakage with coughing/sneezing. Otherwise normal sensation and bale to use the restroom ok. Has been having abdominal pain - sees GI 02/28. Wanting to establish with a new PCP. Nicotine use: quit smoking March 23 Office visit 03/10/23: History of Anterior cervical C4/5, C5/6, C6/7 discectomy, C5, C6 corpectomy and fusion on 11/18/16 at [facility]. Prior to surgery she had severe pain in the neck to both shoulders. - pain improved after surgery. After surgery she developed weakness in the left arm. 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 The medial antebrachial nerve also could not be obtained. . MRI cervical, CT cervical and MRI left brachial plexus were also completed at that time. This weakness after surgery did improve some with time but not completely. She is here for another opinion on her symptoms and for new weakness in the left arm. Currently she has burning pain in posterior neck. Comes and goes but mostly constant. Intermittent shooting pain in right side of the neck - base of the skull. Pain throughout the left upper arm to posterior forearm to 2-4 fingers and sometimes thumb. Not sure about 5th digit. Intermittent numbness and tingling in all the left fingers. If she uses the left arm she gets muscle spasm in the left tricep and sometimes down her left side. Occasional twinge of pain in the right arm. Sometimes cramping and locking in the either hand. Started before surgery. Pain in bilateral wrists New weakness in left arm starting in November. Difficulty lifting a blanket over her. Dropping her pen in the right hand for the past year. Able to do buttons and zippers. Some difficulty paper or grabbing small objects. No change in bowel/bladder. Urinary frequency. Balance has always been off. No changes. She has numbness across the bilateral upper and lower jaw which started around June 2022. Left side of the roof of the mouth is numb. This past Thursday she started to have pain in the left side of the face. Seen in ED and prescribed [place] as well as amoxicillin for possible tooth infection. 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 Lots of cervical flexion/extension which aggravates the neck. Sometimes when she looks up she will feel a band snap in the left leg . Smoking 5 cigarettes a day. Working on quitting. She reports an increase in her low back pain following administration of contrast for her CT face 03/08/23. This has improved. States she did have Covid 19 beginning April 2022. Recently following with her PCP for this. MRI cervical spine has been ordered but was denied by insurance due to not having PT. At last office visit 02/16/23 she was referred to [facility] for evaluation. Treating providers: --Neurosurgery Dr. Mina Browning 01/18/18 for various symptoms including low back pain into bilateral legs, full-body numbness, diffuse aches and pains. baseline chronic pain issues that are diffuse and inorganic in terms of imaging I do not think that this patient would be a great candidate for fusion. In addition she is an active smoker at this time. I will refer her to physical medicine for evaluation for any conservative management including injections or therapy that may be appropriate. In addition I do suspect that there is a component of hip arthropathy so I will obtain right hip x-rays as well. Regarding her upper extremities she does have significant foraminal stenosis that is residual from her anterior approach. Considering this I did offer her a posterior approach to foraminotomies at multiple levels to see if we can improve some of her upper extremity symptoms. At this point the patient is really not interested in any Surgery unless it is mandatory. I advised her that it is definitely not a mandatory procedure I do not think that her deficits worsening are considerably related to these findings. PAIN EVALUATION 03/11/2024 0914 03/11/2024 1118 Pain Level: 7 5 Pain Location: Back-Lower Back-Lower Description: Aching;Burning;Cramping;Numbness ;Sharp;Shooting;Spasm;Stabbing;S tiffness;Throbbing;Tightness Throbbing;Radiating;Sharp Duration Amount of Time: -- 5 Duration Units: -- Months Frequency: Continuous Continuous Intervention/Comfort measure: Medication;Relaxation;Cold;Massa ge;Pillow support Medication Litigation: No Workers' Compensation: No YELLOW & BLUE FLAGS No-Neg Attitude; Back Pain is Disabling No-Avoiding Activity (for Fear of Pain) YES-Depression or Anxiety Disorders No-Social Problems No-Substance Use Disorder No-Job Dissatisfaction No-Financial Disincentives Patient Entered Questionnaires 02/18/2024 03/11/2024 Spine Questions Pain Location: Neck Lower back Pain Duration: More than 5 years Pain over last 6 months: Every day or nearly every day in the past 6 months Symptoms from neck/cervical spine: Yes Yes Employment Status: Working now Involved in law suit/legal claim: No 02/18/2024 Spine Red Flags Any type of cancer: No Unexplained fever: No Bowel or bladder disfunction: No Unintentional weight loss: No Osteoporosis: No 02/18/2024 Neck Questionnaires Benzel Modified TAYLOR Score 12 (Moderate Myelopathy Symptoms) PROMIS Score Percentiles 02/18/2024 Physical Health Physical Function Percentile 18* Sleep Percentile 34 Fatigue Percentile 8 Pain Interference Percentile 2 02/18/2024 PROMIS SOCIAL ROLE SCORE Social Role Satisfaction Percentile 12 02/18/2024 PROMIS Global Health Scale Physical Health Percentile 10 Mental Health Percentile 1 Percentiles provide an indication of how the patient's score ranks in relation to the general population. Higher percentile rankings indicate better function/quality of life. 50th percentile is the average of the general population and indicates half of respondents had a worse score. Depression Screenin02/18/2024 PHQ-9 Score 11 02/18/2024 PHQ-9 Self Harm Question 9 Not at all PHQ-9 Self-Harm (Item 9) response options: 0 Not at all 1 Several days 2 More than half the days 3 Nearly every day PHQ-9 Levels: 0-4 No - mild depression 5-9 Mild depression 10-14 Moderate depression 15-19 Moderately severe depression 20-27 Severe depression There is no problem list on file for this patient. History reviewed. No pertinent past medical history. PAST SURGICAL HISTORY Procedure Laterality Date COLONOSCOPY SCREENING EGD DIAGNOSTIC Social History Tobacco Use Smoking status: Former Types: Cigarettes Smokeless tobacco: Never Vaping Use Vaping Use: Some days Substances: THC Substance Use Topics Alcohol use: Not Currently Drug use: Yes Types: Marijuana FAMILY HISTORY Problem Relation Age of Onset Colon Cancer Paternal Grandfather ALLERGIES Allergen Reactions Nsaids (Non-Steroid* Unknown Stomach upset , GI Issues, bleeding Steroids [Corticost* Unknown PT states Bleeding CURRENT MEDICATIONS: clonazePAM (KLONOPIN) 0.5 mg tablet Take 1 mg by mouth every 12 hours. buPROPion XL (WELLBUTRIN XL) 300 mg 24 hr tablet Every morning Cetirizine 10 mg cap esomeprazole (NEXIUM) 40 mg capsule 1 capsule. famotidine (PEPCID) 10 mg tablet sertraline (ZOLOFT) 100 mg tablet Take 100 mg by mouth every morning. oxybutynin ER (DITROPAN XL) 15 mg 24 hr Extended Rel Tab Take 1 tablet by mouth every afternoon. REVIEW OF SYSTEMS: PAIN ASSESSMENT: See HPI. GENERAL: Denies fever, chills CARDIOVASCULAR: Denies chest pain. RESPIRATORY: Denies SOB : Denies bowel or bladder incontinence MUSCULOSKELETAL: Positive for See HPI PSYCHOLOGICAL: Anxiety NEURO: Denies seizures ENDOCRINE: Denies diabetes HEMATOLOGY/LYMPHOLOGY: Denies cancer OBJECTIVE: PHYSICAL EXAM BP 129/68 Pulse 71 Ht 170.2 cm (5' 7 ) Wt 97.5 kg (215 lb) BMI 33.67 kg/m GENERAL APPEARANCE: Well appearing, well-hydrated, well nourished and alert SKIN: Head, neck, trunk, and extremities dry, intact and without lesions LUNGS: even and non-labored breathing, normal chest excursion NEURO/PSYCH: oriented to time, place, and person, speech normal, mental status intact GAIT: normal, toe walking normal, heel walking normal, mild difficulty with tandem gait POSTURE: Posture and spinal curves are normal PALPATION: no palpable masses, or spasm, no palpable subluxation or step-off, tenderness to midline lumbar spine and lumbar paraspinals at and below belt line. MUSCULOSKELETAL: Extended Low Back & Leg Exam Lumbar Range of Motion Flexion Touches floor Extension Normal with low back pain RIGHT LEFT Lateral Bending Limited Full Oblique Extension (facet loading) Within Normal Limits with low back pain Within Normal Limits Leg Raise Straight Leg Raise Negative Negative Contralateral Straight Leg Raise Negative Negative DTRs Knee Normal Normal Ankle Normal Normal Clonus negative Strength of Lower Extremities Hip Flexion 5/5 5/5 Knee Extension 5/5 5/5 Ankle Dorsiflexion 5/5 5/5 Ankle Plantarflexion 5/5 5/5 Hip Range of Motion RIGHT LEFT Flexion Normal Normal Extension Normal Normal Abduction Normal Normal Adduction Normal Normal Internal Rotation Normal Normal External Rotation Normal Normal Hip Exam RIGHT LEFT ERICKA Exam Normal Normal Trochanteric Bursa Tenderness Normal Normal FADIR Normal Normal Log-roll Hips: negative [place]'s (modified):negative Thigh thrust: negative Prone extension: states it does hurt but is a good hurt . NEUROSENSORY: Soft touch; Within Normal Limits Data Review: [facility] records independently reviewed Images independently reviewed with the patient Lumbar XR 02/19/24: Anatomic Variants: None. There is a slight dextrocurvature of the lumbar spine centered at L3-L4. Vertebral body heights and lateral alignment are maintained. There is mild to moderate narrowing of the L5-S1 intervertebral disc space. There are mild degenerative changes of the L1-L3 levels. Facet joints are notable for mild degenerative changes. Sacroiliac joints are maintained.There are subchondral cysts of the right acetabulum, suggestive of hip osteoarthritis MRI cervical 04/20/23: Anatomic Variants: None. Localizer images: No additional findings. Alignment: Alignment is anatomic. Craniocervical junction: Craniocervical junction is normal. Cord: The visualized cord is within normal limits of signal intensity and morphology. Bone marrow signal/fracture: No evidence of pathologic marrow infiltration. No evidence of prior fracture. Anterior fusion C4-C7 with caudal lobectomy grafting unchanged. Cervical soft tissues: The paraspinal soft tissues are within normal limits. C2-C3: Canal and foramina are patent. C3-C4: Mild spinal canal stenosis secondary to small central protrusion. Mild bilateral foraminal stenosis secondary to uncovertebral joint degenerative hypertrophy. C4-C5: Spinal canal is patent. Mild bilateral foraminal stenosis secondary to uncovertebral joint degenerative changes. C5-C6: Spinal canal is patent. Dorsal endplate osteophytic hypertrophic changes flattening the ventral thecal sac. Moderate to severe right greater than left foraminal stenosis. C6-C7: Spinal canal is patent. Moderate bilateral foraminal stenosis. C7-T1: Canal and foramina are patent. CT cervical 03/25/23: Anatomic Variants: None. Postoperative change: There are postoperative findings related to anterior corpectomy, bone graft and fusion extending from C4 to C7. Accounts Administrator (topogram) images: No significant findings. Alignment: Alignment is anatomic. Craniocervical junction: Craniocervical junction is normal. Osseous structures/fracture: No evidence of a lytic or blastic process in the visualized spine. No evidence of acute or chronic fracture. Cervical soft tissues: The paraspinal soft tissues are within normal limits. Degenerative changes: C2-C3: Canal and foramina are patent. C3-C4: There is mild bilateral facet arthropathy resulting in minimal bilateral neural foraminal narrowing on the left. There is no significant spinal canal stenosis or right neural foraminal narrowing. C4-C5: There is mild bilateral facet arthropathy and uncovertebral osteophytes resulting in minimal right neural foraminal narrowing. There is no spinal canal stenosis or left neural foraminal narrowing. C5-C6: There is mild bilateral facet arthropathy and uncovertebral osteophytes resulting in moderate bilateral neural foraminal narrowing. There is no significant spinal canal stenosis. C6-C7: There is mild bilateral facet arthropathy and uncovertebral osteophytes resulting in moderate left and mild right neural foraminal narrowing. There is no spinal canal stenosis. C7-T1: Canal and foramina are patent.' Cervical XR 09/03/22 FINDINGS: BONES: Loss of normal cervical lordosis with no acute fracture or spondylolisthesis. Anterior fusion C4-C7 with no mechanical failure. Degenerative spondylosis and facet osteoarthropathy DISC SPACES: Interbody fusion C4-C7 PARASPINOUS: Negative. No paraspinous abnormality is seen. OTHER: Negative. IMPRESSION: Stable anterior fusion C4-C7 EMG 04/03/23: Extensive electrodiagnostic examination of the left upper limb and additional studies of the right upper limb disclose the followin. Sensory and motor nerve conduction responses within normal limits 2. Chronic motor axon loss changes in left C7 myotome, [id number] in degree electrically, with significant active/ongoing motor axon loss features appreciated in the left pronator teres muscle. Taken together, these findings are most consistent with a subacute on chronic cervical intraspinal lesion affecting left C7 nerve root/segment. 3. There is no definite evidence of a superimposed left median, ulnar or radial mononeuropathy based on screening electrodiagnostic studies in those nerve distributions. MRI lumbar 04/15/22: For the purposes of numbering, sagittal T2 image # 7 extends from the T11-T12 vertebral body superiorly to the L2 level inferiorly. PARASPINAL AREA: Normal with no visible mass. BONES: No fracture, pars defect, or osseous lesion. CORD/CAUDA EQUINA: Normal caliber, contour, and signal intensity. DISC LEVELS: 12-L1: Moderate degenerative disc disease is present without visible neural impingement. L1-L2: Early degenerative disc disease is present without focal protrusion or neural impingement. L2-L3: Early degenerative disc disease is present without focal protrusion or neural impingement. L3-L4: No significant disc/facet abnormality, spinal stenosis, or foraminal stenosis. L4-L5: Moderate diffuse disc bulging without significant central canal narrowing. Mild foramen narrowing bilaterally. Minimal disc height reduction and mild degenerative facet arthropathy. L5-S1: Moderate marked foramen narrowing bilaterally without significant central canal narrowing. Mild diffuse disc bulging with small right paracentral and foraminal broad-based disc protrusion. Moderate degenerative facet arthropathy bilaterally. Lumbar XR 04/04/22: BONES: No significant spondylosis, scoliosis, fracture, or visible bony lesion. DISC SPACES: T12-L1 moderate-marked disc space narrowing. L4-L5 mild narrowing. L5-S1 moderate narrowing. PARASPINOUS: Negative. No paraspinous abnormality is seen. OTHER: Negative. MRI brachial plexus left 03/2017: report only The imaged nerve roots, trunks, divisions, cords, and branches of the brachial plexus appear unremarkable. No evidence of abnormal mass, mass effect, or signal. Limited evaluation of the lungs and soft tissues of the neck demonstrates no abnormality. MRI cervical 03/2017: report only Status post C4-C7 anterior instrumented fusion, C5-6 corpectomy and strut graft placement. Multilevel degenerative disc disease as described above, grossly stable. Spinal canal narrowing, mild at C4-5, minimal at C2-3 and C3-4. Foraminal narrowing, moderate at right C4-5 and bilateral C5-6, mild to moderate at bilateral C6-7, mild at bilateral C3-4 and left C4-5. CT cervical 03/2017: report only BONES/ALIGNMENT: There is normal alignment of the cervical spine. Postoperative changes with C5-C6 corpectomy, strut graft, an anterior cervical fusion from C4-C7 with plate and screws. Hardware appears intact. Clips in the left neck from previous surgery. Stable subtle 5 mm sclerotic focus in T1, likely a bone island. DEGENERATIVE CHANGES: Adequate decompression at the surgical levels without significant spinal stenosis identified within limits of the exam. At C4-C5 there is mild uncovertebral hypertrophy with mild neural foraminal stenosis on the right. At C5-C6 there is mild uncovertebral hypertrophy with mild neural foraminal stenosis, right greater than left. At C6-C7 there is mild bilateral uncovertebral hypertrophy with mild neural foraminal stenoses. Resultant mild multilevel neural foraminal stenoses. C7-T1 disc space appears unremarkable. SOFT TISSUES: There is no prevertebral soft tissue swelling. Lung apices show mild emphysematous changes and scarring. Shotty cervical lymph nodes. ASSESSMENT/PLAN (M47.816) Lumbar spondylosis (primary encounter diagnosis) (M54.42, M54.41, G89.29) Chronic bilateral low back pain with bilateral sciatica (M25.551) Pain in right hip Chronic pain in bilateral low back x20+ years. Radiating to right lateral thigh. Intermittent pain in bilateral groin and medial thighs. Strength is good on exam. PT has been helpful for her in the past. Recommend completing PT for low back and hip/leg pain. Re-evaluate after PT course and consider advanced imaging for interventional planning if pain persists. 1. Imaging/diagnostics: none 2. Physical therapy: start PT 3. Medication: none 4. Referrals: PT 5. Considerations: lumbar MRI, orthopedics for hip pain 6. Follow up: 2 months I spent a total of 25 minutes on the date of the service which included preparing to see the patient, [id number] patient care, completing clinical documentation, obtaining and/or reviewing separately obtained history, performing a medically appropriate examination, counseling and educating the patient/family/caregiver, independently interpreting results (not separately reported), and communicating results to the patient/family/caregiver. SIGNATURE: Rakesh Thompson PA-C PATIENT NAME: Aurora Montague DATE: March 11, 2024 TIME: 11:15 AM documented in this encounter [facility] 03-11-2024 Note HNO ID: [id number] Author: RAKESH THOMPSON PA-C Service: ? Author Type: Physician Hand Mounter Type: Progress Notes Filed: 03/11/2024 15:24 Note Text: Spine Care Path Low back pain - chronic follow up Exam SUBJECTIVE HISTORY OF PRESENT ILLNESS: Aurora Montague is a 48 year old female who presents with a chief complaint of low back and leg pain. Here today for evaluation of her low back pain. Pain is located in midline to bilateral low back. Duration: 20+ years Radiates to: right lateral hip to right lateral thigh to knee. Pain in Right > left groin radiating to medial thigh. Intermittent pain in bilateral posterior lower legs with walking on treadmill for 30 min. Burning and heavy sensation throughout both legs with going up stairs. Intermittent pain at the ankles. Sometimes with walking she feels like the right leg gives out at the hip or thigh. Sometimes she notices that she walks on the lateral part of her feet. Numbness/tingling: bilateral feet - comes and goes. No progressive leg weakness. Urinary leakage with coughing/sneezing. Otherwise normal sensation and bale to use the restroom ok. Seen by GI 02/29/24 for generalized abdominal pain since age 19. CT abd/pel w contrast ordered as well as EGD and colonoscopy. Interventions: Medications: Wellbutrin (300mg qAM), Zoloft (100mg qAM), Klonopin (1mg BID) -Previously tried: [place], robaxin, diclofenac 75mg BID ,medrol dose pack (11/27/22), prednisone (01/26/23), naproxen - GI bleed/ulcer -tylenol - no relief -topicals - no relief -stopped NSAIDs due to GI issues Physical therapy: -scheduled to start PT for neck pain 03/18/24 -completed 4 weeks December 2022 for neck - caused more pain -PT for low back was 2021 at [facility] Previous spine injection history: none - states nervous of injections Previous spine surgery: -11/18/2016 : Anterior cervical C4/5, C5/6, C6/7 discectomy, C5, C6 corpectomy and fusion with iliac strut graft and Invizia plate with Dr. Harvey at [facility] Office visit 02/19/24: Pain is currently 2/10. Will increase to 6/10 at its worst (neck). She was last seen 03/10/23 for neck and arm symptoms. Has since completed CT, MRI and EMG. In May she stretched one day and her left shoulder popped and her pain improved. The pain radiating pain she had into the left arm is now better. Burning in posterior neck. Stiffness. Constant. Radiates to: bilateral shoulder blades - comes and goes. Tension headaches from back of the head and sometimes the entire head. Burning pain around the left elbow. Intermittent spasms in the left arm or sides. Sharp, nerve pain in bilateral hands and all the fingers. Comes and goes. Difficulty with right hand - drops things at times. Some dexterity issues. States this has gotten a little worse in the right hand. Still weakness in the left tricep. Unchanged. She feels off balance - mildly increased over time. Numbness/tingling: all the fingers. Comes and goes. She has intermittent numbness across the bilateral upper and lower jaw which started around June 2022. Urinary leakage with coughing/sneezing. Otherwise normal sensation and bale to use the restroom ok. Has been having abdominal pain - sees GI 02/28. Wanting to establish with a new PCP. Nicotine use: quit smoking March 23 Office visit 03/10/23: History of Anterior cervical C4/5, C5/6, C6/7 discectomy, C5, C6 corpectomy and fusion on 11/18/16 at [facility]. Prior to surgery she had severe pain in the neck to both shoulders. - pain improved after surgery. After surgery she developed weakness in the left arm. 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 The medial antebrachial nerve also could not be obtained. . MRI cervical, CT cervical and MRI left brachial plexus were also completed at that time. This weakness after surgery did improve some with time but not completely. She is here for another opinion on her symptoms and for new weakness in the left arm. Currently she has burning pain in posterior neck. Comes and goes but mostly constant. Intermittent shooting pain in right side of the neck - base of the skull. Pain throughout the left upper arm to posterior forearm to 2-4 fingers and sometimes thumb. Not sure about 5th digit. Intermittent numbness and tingling in all the left fingers. If she uses the left arm she gets muscle spasm in the left tricep and sometimes down her left side. Occasional twinge of pain in the right arm. Sometimes cramping and locking in the either hand. Started before surgery. Pain in bilateral wrists New weakness in left arm starting in November. Difficulty lifting a blanket over her. Dropping her pen in the right hand for the past year. Able to do buttons and zippers. Some difficulty paper or grabbing small objects. (more content not included)... [facility] 02-29-2024 History of Presen t illness Narrative Chief Compliant: Aurora Montague, 48 year old female, presents in the office today at the request of Hugo Mendez for GERD and abdominal pain. My final recommendations will be communicated back to the requesting physician by the way of the shared medical record, fax, or via US Mail. HPI: Aurora Montague is a 48 year old female who presents for abdominal pain Pain is generalized throughout the abdomen This has been going since age 19 Has been getting worse in the last few years Cramps alternating with sharp pain + lower back and rectal burning sensation + associated with diaphoresis and intermittent vomiting Chronic issues with back pain Has been on NSAIDs almost all her life, takes advil and started taking steroids orally started in 2008. Currently she has rectal bleeding when taking NSAIDs or steroids. 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 + mucous in the stool This is chronic Previous OV N/A Previous Procedures: N/A Previous Imagin12-12-12 CT ABD CX PEL IMPRESSION: 1. Normal CTA of the aorta. 2. There is minimal atelectatic changes seen at the right lung base with no acute cardiopulmonary process seen. 11-19-16 Comprehensive metabolic panel Component Ref Range & Units 7 yr ago Resulting Agency Comments Glucose 70 - 99 mg/dL 126 High [facility] BUN 6 - 20 mg/dL 8 [facility] Creatinine 0.50 - 0.90 mg/dL 0.63 [facility] Bun/Cre Ratio 9 - 20 NOT REPORTED [facility] Calcium 8.6 - 10.4 mg/dL 8.3 Low [facility] Sodium 135 - 144 mmol/L 138 NEW [facility] Potassium 3.7 - 5.3 mmol/L 3.8 [facility] Chloride 98 - 107 mmol/L 102 [facility] CO2 20 - 31 mmol/L 22 [facility] Anion Gap 9 - 17 mmol/L 14 [facility] Alkaline Phosphatase 35 - 104 U/L 61 [facility] ALT 5 - 33 U/L 9 [facility] AST <32 U/L 11 [facility] Total Bilirubin 0.3 - 1.2 mg/dL 0.33 [facility] Total Protein 6.4 - 8.3 g/dL 6.2 Low [facility] Albumin 3.5 - 5.2 g/dL 3.7 [facility] Albumin/Globulin Ratio 1.0 - 2.5 1.5 [facility] GFR Non- >60 mL/min >60 [facility] GFR >60 mL/min >60 [facility] GFR Comment CBC Component Ref Range & Units 7 yr ago Comments WBC 3.5 - 11.0 k/uL 15.7 High RBC 4.0 - 5.2 m/uL 3.87 Low Hemoglobin 12.0 - 16.0 g/dL 12.3 Hematocrit 36 - 46 % 35.9 Low MCV 80 - 100 fL 92.7 MCH 26 - 34 pg 31.8 MCHC 31 - 37 g/dL 34.3 RDW 12.5 - 15.4 % 13.4 Platelets 140 - 450 k/uL 234 MPV 6.0 - 12.0 fL 9.3 ALLERGIES Allergen Reactions Nsaids (Non-Steroid* Unknown Stomach upset , GI Issues, bleeding Steroids [Corticost* Unknown PT states Bleeding buPROPion XL (WELLBUTRIN XL) 300 mg 24 hr tablet Every morning Cetirizine 10 mg cap clonazePAM (KLONOPIN) 0.5 mg tablet Take 1 tablet by mouth every 12 hours. esomeprazole (NEXIUM) 40 mg capsule 1 capsule. famotidine (PEPCID) 10 mg tablet sertraline (ZOLOFT) 100 mg tablet Take 100 mg by mouth every morning. oxybutynin ER (DITROPAN XL) 15 mg 24 hr Extended Rel Tab Take 1 tablet by mouth every afternoon. HISTORIES: No family history on file. No past medical history on file. No past surgical history on file. REVIEW OF SYSTEMS: General:No weight loss, malaise or fevers Respiratory: Negative for cough, hemoptysis, wheezing or shortness of breath Cardiovascular: Negative for chest pain, leg swelling or palpitations Gastrointestinal: See HPI Genitourinary: No history of dysuria, frequency or incontinence Musculoskeletal: joint pain or swelling Neurologic:Positive for headaches: Skin:Negative for lesions, rash, and itching Psychiatric: Positive for depression: Hematologic/Lymph:Negative for prolonged bleeding, bruising easily or swollen nodes Endocrine: Negative for cold or heat intolerance, polyuria, polydipsia and goiter PHYSICAL EXAMINATION: There were no vitals taken for this visit. General appearance: Well appearing, alert, in no acute distress, well-hydrated, well nourished. Skin: Skin color, texture, turgor normal, no suspicious rashes or lesions Head: Normocephalic, no masses, lesions, tenderness or abnormalities Eyes: Anicteric sclera. Pupils are equally round and reactive to light. Extraocular movements are intact. Ears: External ears normal, canals clear Nose/Sinuses: Nares normal, septum midline, mucosa normal, no drainage or sinus tenderness Neck: Supple, no adenopathy; thyroid symmetric, normal size, no bruits Lungs: Lungs clear to auscultation. No wheezing, rhonchi, rales Heart: RRR without murmur, gallop, or rubs. No ectopy Abdomen: Abdomen soft, . Bowel sounds normal. No masses, organomegaly, Positive findings: tenderness mild generalized Extremities: No deformities, edema, skin discoloration, clubbing or cyanosis. Good capillary refill. Musculoskeletal: Negative Neuro: Negative. ASSESSMENT/PLAN: 1. Chronic abdominal pain - ICD9: 789.00, 338.29, ICD10: R10.9, G89.29 (primary diagnosis) Chronic for many years Recent worsening after she quit tobacco Diffuse Daily Many years use of NSAIDs and steroids for back pain s/p surgery Will start with CT scan to eval mesenteric vessels and bowels EGD and colonoscopy to rule out mucosal disease - CT ABD/PEL W IVCON - IV CONTRAST (RADIOLOGY PROCEDURE) - ENTERIC CONTRAST (RADIOLOGY PROCEDURE) - COMPREHENSIVE METABOLIC PANEL - COMPLETE BLOOD COUNT AND DIFFERENTIAL 2. Gastroesophageal reflux disease with esophagitis without hemorrhage - ICD9: 530.81, 530.10, ICD10: K21.00 Known to have esophagitis No Sapp's esophagus - EGD DIAGNOSTIC 3. Nausea - ICD9: 787.02, ICD10: R11.0 Intermittent - CT ABD/PEL W IVCON - EGD DIAGNOSTIC - COMPREHENSIVE METABOLIC PANEL - COMPLETE BLOOD COUNT AND DIFFERENTIAL 4. PUD (peptic ulcer disease) - ICD9: 533.90, ICD10: K27.9 Secondary to NSAIDs - EGD DIAGNOSTIC 5. Rectal bleeding - ICD9: 569.3, ICD10: K62.5 - COLONOSCOPY DIAGNOSTIC 6. Irritable bowel syndrome with both constipation and diarrhea - ICD9: 564.1, ICD10: K58.2 - COLONOSCOPY DIAGNOSTIC - FAT, FECAL QUAL - PANC ELASTASE, FECAL - CALPROTECTIN,FECAL - C. DIFFICILE PCR - COMPLETE BLOOD COUNT AND DIFFERENTIAL - GLIADIN (DEAMINATED) ABS - ENDOMYSIAL IGA AB - TRANSGLUTAMINASE IGA - TRANSGLUTAMINASE IGG - ENDOMYSIAL ANTIBODY, IGG Ashley Shah MD Follow Up: No follow-ups on file. documented in this encounter [facility] 02-29-2024 Note HNO ID: [id number] Author: ASHLEY SHAH MD Service: ? Author Type: Physician Type: Progress Notes Filed: 02/29/2024 13:50 Note Text: Chief Compliant: Aurora Montague, 48 year old female, presents in the office today at the request of Hugo Mendez for GERD and abdominal pain. My final recommendations will be communicated back to the requesting physician by the way of the shared medical record, fax, or via US Mail. HPI: Aurora Montague is a 48 year old female who presents for abdominal pain Pain is generalized throughout the abdomen This has been going since age 19 Has been getting worse in the last few years Cramps alternating with sharp pain + lower back and rectal burning sensation + associated with diaphoresis and intermittent vomiting Chronic issues with back pain Has been on NSAIDs almost all her life, takes advil and started taking steroids orally started in 2008. Currently she has rectal bleeding when taking NSAIDs or steroids. 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 + mucous in the stool This is chronic Previous OV N/A Previous Procedures: N/A Previous Imagin12-12-12 CT ABD CX PEL IMPRESSION: 1. Normal CTA of the aorta. 2. There is minimal atelectatic changes seen at the right lung base with no acute cardiopulmonary process seen. 11-19-16 Comprehensive metabolic panel Component Ref Range AND Units 7 yr ago Resulting Agency Comments Glucose 70 - 99 mg/dL 126 High [facility] BUN 6 - 20 mg/dL 8 [facility] Creatinine 0.50 - 0.90 mg/dL 0.63 [facility] Bun/Cre Ratio 9 - 20 NOT REPORTED [facility] Calcium 8.6 - 10.4 mg/dL 8.3 Low [facility] Sodium 135 - 144 mmol/L 138 [facility] Potassium 3.7 - 5.3 mmol/L 3.8 [facility] Chloride 98 - 107 mmol/L 102 [facility] CO2 20 - 31 mmol/L 22 [facility] Anion Gap 9 - 17 mmol/L 14 [facility] Alkaline Phosphatase 35 - 104 U/L 61 [facility] ALT 5 - 33 U/L 9 [facility] AST <32 U/L 11 [facility] Total Bilirubin 0.3 - 1.2 mg/dL 0.33 [facility] Total Protein 6.4 - 8.3 g/dL 6.2 Low [facility] Albumin 3.5 - 5.2 g/dL 3.7 [facility] Albumin/Globulin Ratio 1.0 - 2.5 1.5 [facility] GFR Non- >60 mL/min >60 [facility] GFR >60 mL/min >60 [facility] GFR Comment CBC Component Ref Range AND Units 7 yr ago Comments WBC 3.5 - 11.0 k/uL 15.7 High RBC 4.0 - 5.2 m/uL 3.87 Low Hemoglobin 12.0 - 16.0 g/dL 12.3 Hematocrit 36 - 46 % 35.9 Low MCV 80 - 100 fL 92.7 MCH 26 - 34 pg 31.8 MCHC 31 - 37 g/dL 34.3 RDW 12.5 - 15.4 % 13.4 Platelets 140 - 450 k/uL 234 MPV 6.0 - 12.0 fL 9.3 ALLERGIES Allergen Reactions Nsaids (Non-Steroid* Unknown Stomach upset , GI Issues, bleeding Steroids [Corticost* Unknown PT states Bleeding buPROPion XL (WELLBUTRIN XL) 300 mg 24 hr tablet Every morning Cetirizine 10 mg cap clonazePAM (KLONOPIN) 0.5 mg tablet Take 1 tablet by mouth every 12 hours. esomeprazole (NEXIUM) 40 mg capsule 1 capsule. famotidine (PEPCID) 10 mg tablet sertraline (ZOLOFT) 100 mg tablet Take 100 mg by mouth every morning. oxybutynin ER (DITROPAN XL) 15 mg 24 hr Extended Rel Tab Take 1 tablet by mouth every afternoon. HISTORIES: No family history on file. No past medical history on file. No past surgical history on file. REVIEW OF SYSTEMS: General:No weight loss, malaise or fevers Respiratory: Negative for cough, hemoptysis, wheezing or shortness of breath Cardiovascular: Negative for chest pain, leg swelling or palpitations Gastrointestinal: See HPI Genitourinary: No history of dysuria, frequency or incontinence Musculoskeletal: joint pain or swelling Neurologic:Positive for headaches: Skin:Negative for lesions, rash, and itching Psychiatric: Positive for depression: Hematologic/Lymph:Negative for prolonged bleeding, bruising easily or swollen nodes Endocrine: Negative for cold or heat intolerance, polyuria, polydipsia and goiter PHYSICAL EXAMINATION: There were no vitals taken for this visit. General appearance: Well appearing, alert, in no acute distress, well-hydrated, well nourished. Skin: Skin color, texture, turgor normal, no suspicious rashes or lesions Head: Normocephalic, no masses, lesions, tenderness or abnormalities Eyes: Anicteric sclera. Pupils are equally round and reactive to light. Extraocular movements are intact. Ears: External ears normal, canals clear Nose/Sinuses: Nares normal, septum midline, mucosa normal, no drainage or sinus tenderness Neck: Supple, no adenopathy; thyroid symmetric, normal size, no bruits Lungs (more content not included)... [facility] 02-19-2024 History of Presen t illness Narrative Radiology Service Progress Note PATIENT NAME: Aurora Montague DATE OF SERVICE: February 19, 2024 TIME: 12:33 PM PATIENT IDENTITY VERIFICATION COMPLETED USING TWO (2) IDENTIFIERS: Name and Date of confirmed by patient verbally. FALL SCREENING: Has the patient had 2 falls in the last year or 1 fall with injury or currently using an Ambulatory Assistive Device (Walker, Cane, Wheelchair, Crutches, etc.)? No PATIENT GENDER DATA: Female. status: : No status: NO. PATIENT RELEVANT IMPLANT DATA REVIEWED: Not Applicable PATIENT PRESENTS WITH AN IMPLANTABLE OR ATTACHED LOGGING WORKER: No RADIOLOGY DEPARTMENT: General X-ray: Exam(s) Completed: Spine X-Ray(s): Lumbar AP / LAT / L5-S1 PERIPHERAL IV DATA: Not applicable SIGNED BY: AGATHA Barron) February 19, 2024 12:33 PM documented in this encounter [facility] 02-19-2024 Note HNO ID: [id number] Author: OLEKSANDR POPE RT(R) Service: Radiology Author Type: Technologist Type: Progress Notes Filed: 02/19/2024 12:33 Note Text: Radiology Service Progress Note PATIENT NAME: Aurora Montague DATE OF SERVICE: February 19, 2024 TIME: 12:33 PM PATIENT IDENTITY VERIFICATION COMPLETED USING TWO (2) IDENTIFIERS: Name and Date of confirmed by patient verbally. FALL SCREENING: Has the patient had 2 falls in the last year or 1 fall with injury or currently using an Ambulatory Assistive Device (Walker, Cane, Wheelchair, Crutches, etc.)? No PATIENT GENDER DATA: Female. status: : No status: NO. PATIENT RELEVANT IMPLANT DATA REVIEWED: Not Applicable PATIENT PRESENTS WITH AN IMPLANTABLE OR ATTACHED LOGGING WORKER: No RADIOLOGY DEPARTMENT: General X-ray: Exam(s) Completed: Spine X-Ray(s): Lumbar AP / LAT / L5-S1 PERIPHERAL IV DATA: Not applicable SIGNED BY: RT Beatrice(R) February 19, 2024 12:33 PM [facility] 02-19-2024 Note HNO ID: [id number] Author: RAKESH THOMPSON PA-C Service: ? Author Type: Physician Hand Mounter Type: Progress Notes Filed: 02/19/2024 12:54 Note Text: Spine Care Path Radicular Arm Pain - Chronic (> 12 weeks) follow up Exam SUBJECTIVE HISTORY OF PRESENT ILLNESS: Aurora Montague is a 48 year old female who presents with a chief complaint of neck and arm pain. Pain is currently 2/10. Will increase to 6/10 at its worst (neck). She was last seen 03/10/23 for neck and arm symptoms. Has since completed CT, MRI and EMG. In May she stretched one day and her left shoulder popped and her pain improved. The pain radiating pain she had into the left arm is now better. Burning in posterior neck. Stiffness. Constant. Radiates to: bilateral shoulder blades - comes and goes. Tension headaches from back of the head and sometimes the entire head. Burning pain around the left elbow. Intermittent spasms in the left arm or sides. Sharp, nerve pain in bilateral hands and all the fingers. Comes and goes. Difficulty with right hand - drops things at times. Some dexterity issues. States this has gotten a little worse in the right hand. Still weakness in the left tricep. Unchanged. She feels off balance - mildly increased over time. Numbness/tingling: all the fingers. Comes and goes. She has intermittent numbness across the bilateral upper and lower jaw which started around June 2022. Urinary leakage with coughing/sneezing. Otherwise normal sensation and bale to use the restroom ok. Has been having abdominal pain - sees GI 02/28. Wanting to establish with a new PCP. Nicotine use: quit smoking March 23 Interventions: Medications: Wellbutrin, Zoloft, Klonopin -Previously tried: [place], robaxin, diclofenac 75mg BID ,medrol dose pack (11/27/22), prednisone (01/26/23), naproxen - GI bleed/ulcer -tylenol - no relief -topicals - no relief -stopped NSAIDs due to GI issues Physical therapy: completed 4 weeks December 2022 - caused more pain. Previous spine injection history: none - states nervous of injections Previous spine surgery: -11/18/2016 : Anterior cervical C4/5, C5/6, C6/7 discectomy, C5, C6 corpectomy and fusion with iliac strut graft and Invizia plate with Dr. Harvey at [facility] Office visit 03/10/23: History of Anterior cervical C4/5, C5/6, C6/7 discectomy, C5, C6 corpectomy and fusion on 11/18/16 at [facility]. Prior to surgery she had severe pain in the neck to both shoulders. - pain improved after surgery. After surgery she developed weakness in the left arm. 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 The medial antebrachial nerve also could not be obtained. . MRI cervical, CT cervical and MRI left brachial plexus were also completed at that time. This weakness after surgery did improve some with time but not completely. She is here for another opinion on her symptoms and for new weakness in the left arm. Currently she has burning pain in posterior neck. Comes and goes but mostly constant. Intermittent shooting pain in right side of the neck - base of the skull. Pain throughout the left upper arm to posterior forearm to 2-4 fingers and sometimes thumb. Not sure about 5th digit. Intermittent numbness and tingling in all the left fingers. If she uses the left arm she gets muscle spasm in the left tricep and sometimes down her left side. Occasional twinge of pain in the right arm. Sometimes cramping and locking in the either hand. Started before surgery. Pain in bilateral wrists New weakness in left arm starting in November. Difficulty lifting a blanket over her. Dropping her pen in the right hand for the past year. Able to do buttons and zippers. Some difficulty paper or grabbing small objects. No change in bowel/bladder. Urinary frequency. Balance has always been off. No changes. She has numbness across the bilateral upper and lower jaw which started around June 2022. Left side of the roof of the mouth is numb. This past Thursday she started to have pain in the left side of the face. Seen in ED and prescribed [place] as well as amoxicillin for possible tooth infection. 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 Lots of cervical flexion/extension which aggravates the neck. Sometimes when she looks up she will feel a band snap in the left leg . Smoking 5 cigarettes a day. Working on quitting. She reports an increase in her low back pain following administration of contrast for her CT face 03/08/23. This has improved. States she did have Covid 19 beginning April 2022. Recently following with her PCP for this. MRI cervical spine has been ordered but was denied by insurance due to not having PT. At last office visit 02/16/23 she was referred to [facility] for evaluation. Treating providers: --Paige (more content not included)... [facility] 02-19-2024 History of Presen t illness Narrative Images from the original note were not included. Spine Care Path Radicular Arm Pain - Chronic (> 12 weeks) follow up Exam SUBJECTIVE HISTORY OF PRESENT ILLNESS: Aurora Montague is a 48 year old female who presents with a chief complaint of neck and arm pain. Pain is currently 2/10. Will increase to 6/10 at its worst (neck). She was last seen 03/10/23 for neck and arm symptoms. Has since completed CT, MRI and EMG. In May she stretched one day and her left shoulder popped and her pain improved. The pain radiating pain she had into the left arm is now better. Burning in posterior neck. Stiffness. Constant. Radiates to: bilateral shoulder blades - comes and goes. Tension headaches from back of the head and sometimes the entire head. Burning pain around the left elbow. Intermittent spasms in the left arm or sides. Sharp, nerve pain in bilateral hands and all the fingers. Comes and goes. Difficulty with right hand - drops things at times. Some dexterity issues. States this has gotten a little worse in the right hand. Still weakness in the left tricep. Unchanged. She feels off balance - mildly increased over time. Numbness/tingling: all the fingers. Comes and goes. She has intermittent numbness across the bilateral upper and lower jaw which started around June 2022. Urinary leakage with coughing/sneezing. Otherwise normal sensation and bale to use the restroom ok. Has been having abdominal pain - sees GI 02/28. Wanting to establish with a new PCP. Nicotine use: quit smoking March 23 Interventions: Medications: Wellbutrin, Zoloft, Klonopin -Previously tried: [place], robaxin, diclofenac 75mg BID ,medrol dose pack (11/27/22), prednisone (01/26/23), naproxen - GI bleed/ulcer -tylenol - no relief -topicals - no relief -stopped NSAIDs due to GI issues Physical therapy: completed 4 weeks December 2022 - caused more pain. Previous spine injection history: none - states nervous of injections Previous spine surgery: -11/18/2016 : Anterior cervical C4/5, C5/6, C6/7 discectomy, C5, C6 corpectomy and fusion with iliac strut graft and Invizia plate with Dr. Harvey at [facility] Office visit 03/10/23: History of Anterior cervical C4/5, C5/6, C6/7 discectomy, C5, C6 corpectomy and fusion on 11/18/16 at [facility]. Prior to surgery she had severe pain in the neck to both shoulders. - pain improved after surgery. After surgery she developed weakness in the left arm. 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 The medial antebrachial nerve also could not be obtained. . MRI cervical, CT cervical and MRI left brachial plexus were also completed at that time. This weakness after surgery did improve some with time but not completely. She is here for another opinion on her symptoms and for new weakness in the left arm. Currently she has burning pain in posterior neck. Comes and goes but mostly constant. Intermittent shooting pain in right side of the neck - base of the skull. Pain throughout the left upper arm to posterior forearm to 2-4 fingers and sometimes thumb. Not sure about 5th digit. Intermittent numbness and tingling in all the left fingers. If she uses the left arm she gets muscle spasm in the left tricep and sometimes down her left side. Occasional twinge of pain in the right arm. Sometimes cramping and locking in the either hand. Started before surgery. Pain in bilateral wrists New weakness in left arm starting in November. Difficulty lifting a blanket over her. Dropping her pen in the right hand for the past year. Able to do buttons and zippers. Some difficulty paper or grabbing small objects. No change in bowel/bladder. Urinary frequency. Balance has always been off. No changes. She has numbness across the bilateral upper and lower jaw which started around June 2022. Left side of the roof of the mouth is numb. This past Thursday she started to have pain in the left side of the face. Seen in ED and prescribed [place] as well as amoxicillin for possible tooth infection. 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 Lots of cervical flexion/extension which aggravates the neck. Sometimes when she looks up she will feel a band snap in the left leg . Smoking 5 cigarettes a day. Working on quitting. She reports an increase in her low back pain following administration of contrast for her CT face 03/08/23. This has improved. States she did have Covid 19 beginning April 2022. Recently following with her PCP for this. MRI cervical spine has been ordered but was denied by insurance due to not having PT. At last office visit 02/16/23 she was referred to [facility]surgery for evaluation. Treating providers: --Neurosurgery Dr. Mina Browning 01/18/18 for various symptoms including low back pain into bilateral legs, full-body numbness, diffuse aches and pains. baseline chronic pain issues that are diffuse and inorganic in terms of imaging I do not think that this patient would be a great candidate for fusion. In addition she is an active smoker at this time. I will refer her to physical medicine for evaluation for any conservative management including injections or therapy that may be appropriate. In addition I do suspect that there is a component of hip arthropathy so I will obtain right hip x-rays as well. Regarding her upper extremities she does have significant foraminal stenosis that is residual from her anterior approach. Considering this I did offer her a posterior approach to foraminotomies at multiple levels to see if we can improve some of her upper extremity symptoms. At this point the patient is really not interested in any Surgery unless it is mandatory. I advised her that it is definitely not a mandatory procedure I do not think that her deficits worsening are considerably related to these findings. PAIN EVALUATION 02/17/2024203802/19/2024 1114 Pain Level: 5 2 Pain Location: -- Neck Description: Aching;Burning;Numbness;Radiatin g;Sharp;Shooting;Spasm;Stiffness ;Throbbing;Tingling Stiffness;Burning Duration Amount of Time: -- 1 Duration Units: -- Years Frequency: -- Continuous Intervention/Comfort measure: Medication;Cold;Music;Rocking/ho lding Medication Litigation: No Workers' Compensation: No YELLOW & BLUE FLAGS No-Neg Attitude; Back Pain is Disabling No-Avoiding Activity (for Fear of Pain) YES-Depression or Anxiety Disorders No-Social Problems No-Substance Use Disorder No-Job Dissatisfaction No-Financial Disincentives Patient Entered Questionnaires 02/18/2024 Spine Questions Pain Location: Neck Pain Duration: More than 5 years Pain over last 6 months: Every day or nearly every day in the past 6 months Symptoms from neck/cervical spine: Yes Employment Status: Working now Involved in law suit/legal claim: No 02/18/2024 Spine Red Flags Any type of cancer: No Unexplained fever: No Bowel or bladder disfunction: No Unintentional weight loss: No Osteoporosis: No 02/18/2024 Neck Questionnaires Benzel Modified TAYLOR Score 12 (A lower score indicates increased pain and issues.) PROMIS Score Percentiles 02/18/2024 Physical Health Physical Function Percentile 18* Sleep Percentile 34 Fatigue Percentile 8 Pain Interference Percentile 2 02/18/2024 PROMIS SOCIAL ROLE SCORE Social Role Satisfaction Percentile 12 02/18/2024 PROMIS Global Health Scale Physical Health Percentile 10 Mental Health Percentile 1 Percentiles provide an indication of how the patient's score ranks in relation to the general population. Higher percentile rankings indicate better function/quality of life. 50th percentile is the average of the general population and indicates half of respondents had a worse score. Depression Screenin02/18/2024 PHQ-9 Score 11 02/18/2024 PHQ-9 Self Harm Question 9 Not at all PHQ-9 Self-Harm (Item 9) response options: 0 Not at all 1 Several days 2 More than half the days 3 Nearly every day PHQ-9 Levels: 0-4 No - mild depression 5-9 Mild depression 10-14 Moderate depression 15-19 Moderately severe depression 20-27 Severe depression There is no problem list on file for this patient. History reviewed. No pertinent past medical history. History reviewed. No pertinent surgical history. History reviewed. No pertinent family history. ALLERGIES Allergen Reactions Nsaids (Non-Steroid* Unknown Stomach upset , GI Issues, bleeding Steroids [Corticost* Unknown PT states Bleeding CURRENT MEDICATIONS: buPROPion XL (WELLBUTRIN XL) 300 mg 24 hr tablet Every morning esomeprazole (NEXIUM) 40 mg capsule 1 capsule. Cetirizine 10 mg cap clonazePAM (KLONOPIN) 0.5 mg tablet Take 1 tablet by mouth every 12 hours. famotidine (PEPCID) 10 mg tablet sertraline (ZOLOFT) 100 mg tablet Take 100 mg by mouth every morning. oxybutynin ER (DITROPAN XL) 15 mg 24 hr Extended Rel Tab Take 1 tablet by mouth every afternoon. REVIEW OF SYSTEMS: PAIN ASSESSMENT: See HPI. GENERAL: Denies fever, chills CARDIOVASCULAR: Denies chest pain. RESPIRATORY: Denies SOB : Denies bowel or bladder incontinence MUSCULOSKELETAL: Positive for See HPI PSYCHOLOGICAL: Anxiety NEURO: Denies seizures ENDOCRINE: Denies diabetes HEMATOLOGY/LYMPHOLOGY: Denies cancer OBJECTIVE: PHYSICAL EXAM Ht 170.2 cm (5' 7 ) Wt 96.2 kg (212 lb) BMI 33.20 kg/m GENERAL APPEARANCE: Well appearing, well-hydrated, well nourished and alert SKIN: Head, neck, trunk, and extremities dry, intact and without lesions LUNGS: even and non-labored breathing, normal chest excursion NEURO/PSYCH: oriented to time, place, and person, speech normal, mental status intact GAIT: normal, toe walking normal, heel walking normal, mild difficulty with tandem gait POSTURE: Posture and spinal curves are normal PALPATION: no palpable masses, or spasm, no palpable subluxation or step-off, tenderness to midline lower cervical and upper thoracic spine. Tenderness to bilateral cervical paraspinals and bilateral shoulders MUSCULOSKELETAL: Cervical Range of Motion Flexion Normal Extension Normal RIGHT LEFT Rotation Full ROM without pain Full ROM without pain Lateral Bend Full ROM without pain Full ROM without pain Upper Body Reflex Exam RIGHT LEFT Reflex Status Reflex Status Biceps 2+ Normal 2+ Normal Triceps 2+ Normal 2+ Normal Brachioradialis 2+ Normal 2+ Normal Santana's Sign absent absent Upper Extremity Strength RIGHT LEFT Strength (MMT) Strength (MMT) Shoulder Abduction 5/5 5/5 Biceps 5/5 5/5 Triceps 5/5 4-/5 Resisted Suppination 5/5 4+/5 Wrist Extension 5/5 5/5 Interossei 5/5 5/5 Shoulder Tests Neer Impingement Sign - negative Extended Low Back & Leg Exam RIGHT LEFT DTRs Knee Normal Normal Ankle Normal Normal Clonus negative Strength of Lower Extremities Hip Flexion 5/5 5/5 Knee Extension 5/5 5/5 Ankle Dorsiflexion 5/5 5/5 Ankle Plantarflexion 5/5 5/5 NEUROSENSORY: Soft touch; within normal limits Data Review: [facility] records independently reviewed Images independently reviewed with the patient MRI cervical 04/20/23: Anatomic Variants: None. Localizer images: No additional findings. Alignment: Alignment is anatomic. Craniocervical junction: Craniocervical junction is normal. Cord: The visualized cord is within normal limits of signal intensity and morphology. Bone marrow signal/fracture: No evidence of pathologic marrow infiltration. No evidence of prior fracture. Anterior fusion C4-C7 with caudal lobectomy grafting unchanged. Cervical soft tissues: The paraspinal soft tissues are within normal limits. C2-C3: Canal and foramina are patent. C3-C4: Mild spinal canal stenosis secondary to small central protrusion. Mild bilateral foraminal stenosis secondary to uncovertebral joint degenerative hypertrophy. C4-C5: Spinal canal is patent. Mild bilateral foraminal stenosis secondary to uncovertebral joint degenerative changes. C5-C6: Spinal canal is patent. Dorsal endplate osteophytic hypertrophic changes flattening the ventral thecal sac. Moderate to severe right greater than left foraminal stenosis. C6-C7: Spinal canal is patent. Moderate bilateral foraminal stenosis. C7-T1: Canal and foramina are patent. CT cervical 03/25/23: Anatomic Variants: None. Postoperative change: There are postoperative findings related to anterior corpectomy, bone graft and fusion extending from C4 to C7. Accounts Administrator (topogram) images: No significant findings. Alignment: Alignment is anatomic. Craniocervical junction: Craniocervical junction is normal. Osseous structures/fracture: No evidence of a lytic or blastic process in the visualized spine. No evidence of acute or chronic fracture. Cervical soft tissues: The paraspinal soft tissues are within normal limits. Degenerative changes: C2-C3: Canal and foramina are patent. C3-C4: There is mild bilateral facet arthropathy resulting in minimal bilateral neural foraminal narrowing on the left. There is no significant spinal canal stenosis or right neural foraminal narrowing. C4-C5: There is mild bilateral facet arthropathy and uncovertebral osteophytes resulting in minimal right neural foraminal narrowing. There is no spinal canal stenosis or left neural foraminal narrowing. C5-C6: There is mild bilateral facet arthropathy and uncovertebral osteophytes resulting in moderate bilateral neural foraminal narrowing. There is no significant spinal canal stenosis. C6-C7: There is mild bilateral facet arthropathy and uncovertebral osteophytes resulting in moderate left and mild right neural foraminal narrowing. There is no spinal canal stenosis. C7-T1: Canal and foramina are patent.' Cervical XR 09/03/22 FINDINGS: BONES: Loss of normal cervical lordosis with no acute fracture or spondylolisthesis. Anterior fusion C4-C7 with no mechanical failure. Degenerative spondylosis and facet osteoarthropathy DISC SPACES: Interbody fusion C4-C7 PARASPINOUS: Negative. No paraspinous abnormality is seen. OTHER: Negative. IMPRESSION: Stable anterior fusion C4-C7 EMG 04/03/23: Extensive electrodiagnostic examination of the left upper limb and additional studies of the right upper limb disclose the followin. Sensory and motor nerve conduction responses within normal limits 2. Chronic motor axon loss changes in left C7 myotome, [id number] in degree electrically, with significant active/ongoing motor axon loss features appreciated in the left pronator teres muscle. Taken together, these findings are most consistent with a subacute on chronic cervical intraspinal lesion affecting left C7 nerve root/segment. 3. There is no definite evidence of a superimposed left median, ulnar or radial mononeuropathy based on screening electrodiagnostic studies in those nerve distributions. MRI lumbar 04/15/22: For the purposes of numbering, sagittal T2 image # 7 extends from the T11-T12 vertebral body superiorly to the L2 level inferiorly. PARASPINAL AREA: Normal with no visible mass. BONES: No fracture, pars defect, or osseous lesion. CORD/CAUDA EQUINA: Normal caliber, contour, and signal intensity. DISC LEVELS: 12-L1: Moderate degenerative disc disease is present without visible neural impingement. L1-L2: Early degenerative disc disease is present without focal protrusion or neural impingement. L2-L3: Early degenerative disc disease is present without focal protrusion or neural impingement. L3-L4: No significant disc/facet abnormality, spinal stenosis, or foraminal stenosis. L4-L5: Moderate diffuse disc bulging without significant central canal narrowing. Mild foramen narrowing bilaterally. Minimal disc height reduction and mild degenerative facet arthropathy. L5-S1: Moderate marked foramen narrowing bilaterally without significant central canal narrowing. Mild diffuse disc bulging with small right paracentral and foraminal broad-based disc protrusion. Moderate degenerative facet arthropathy bilaterally. Lumbar XR 04/04/22: BONES: No significant spondylosis, scoliosis, fracture, or visible bony lesion. DISC SPACES: T12-L1 moderate-marked disc space narrowing. L4-L5 mild narrowing. L5-S1 moderate narrowing. PARASPINOUS: Negative. No paraspinous abnormality is seen. OTHER: Negative. MRI brachial plexus left 03/2017: report only The imaged nerve roots, trunks, divisions, cords, and branches of the brachial plexus appear unremarkable. No evidence of abnormal mass, mass effect, or signal. Limited evaluation of the lungs and soft tissues of the neck demonstrates no abnormality. MRI cervical 03/2017: report only Status post C4-C7 anterior instrumented fusion, C5-6 corpectomy and strut graft placement. Multilevel degenerative disc disease as described above, grossly stable. Spinal canal narrowing, mild at C4-5, minimal at C2-3 and C3-4. Foraminal narrowing, moderate at right C4-5 and bilateral C5-6, mild to moderate at bilateral C6-7, mild at bilateral C3-4 and left C4-5. CT cervical 03/2017: report only BONES/ALIGNMENT: There is normal alignment of the cervical spine. Postoperative changes with C5-C6 corpectomy, strut graft, an anterior cervical fusion from C4-C7 with plate and screws. Hardware appears intact. Clips in the left neck from previous surgery. Stable subtle 5 mm sclerotic focus in T1, likely a bone island. DEGENERATIVE CHANGES: Adequate decompression at the surgical levels without significant spinal stenosis identified within limits of the exam. At C4-C5 there is mild uncovertebral hypertrophy with mild neural foraminal stenosis on the right. At C5-C6 there is mild uncovertebral hypertrophy with mild neural foraminal stenosis, right greater than left. At C6-C7 there is mild bilateral uncovertebral hypertrophy with mild neural foraminal stenoses. Resultant mild multilevel neural foraminal stenoses. C7-T1 disc space appears unremarkable. SOFT TISSUES: There is no prevertebral soft tissue swelling. Lung apices show mild emphysematous changes and scarring. Shotty cervical lymph nodes. ASSESSMENT/PLAN (R29.898) Left arm weakness (primary encounter diagnosis) (M54.2) Neck pain (R20.0, R20.2) Numbness and tingling in both hands (M79.641, M79.642) Pain in both hands (Z98.1) S/P cervical spinal fusion (M54.41, G89.29) Chronic bilateral low back pain with right-sided sciatica History of C4-7 anterior fusion 11/2016 at OSH. She developed weakness in the left arm following surgery which did improve some but she continues to have weakness primarily in the left tricep. The radiating left arm pain that she had one year ago has improved. She continues to have pain in posterior neck to shoulder blades ad shoulders. Intermittent pain, numbness/tingling in all fingers. EMG 04/2023 showed subacute on chronic cervical intraspinal lesion affecting left C7 nerve root/segment. MRI showed moderate to severe bilateral foraminal stenosis at C5-6 and moderate bilateral foraminal stenosis at C6-7. No significant canal stenosis. She is wanting to avoid any further spine surgery. Recommend physical therapy for the neck, strengthening. Due to time constraints she will schedule a follow up to discuss her low back and leg pain/symptoms. Obtain lumbar XR prior to this visit. 1. Imaging/diagnostics: lumbar XR 2. Physical therapy: start PT for neck 3. Medication: continue current regimen 4. Referrals: PT 5. Considerations: C7-T1 STEVE 6. Follow up: for low back evaluation I spent a total of 45 minutes on the date of the service which included preparing to see the patient, [id number] patient care, completing clinical documentation, obtaining and/or reviewing separately obtained history, performing a medically appropriate examination, counseling and educating the patient/family/caregiver, ordering medications, tests, or procedures, independently interpreting results (not separately reported), and communicating results to the patient/family/caregiver. SIGNATURE: Rakesh Thompson PA-C PATIENT NAME: Aurora Montague DATE: February 19, 2024 TIME: 11:15 AM documented in this encounter [facility] 04-20-2023 History of Presen t illness Narrative Radiology Service Progress Note PATIENT NAME: Aurora Montague DATE OF SERVICE: April 20, 2023 TIME: 5:02 PM PATIENT IDENTITY VERIFICATION COMPLETED USING TWO (2) IDENTIFIERS: Name and Date of confirmed by patient verbally. FALL SCREENING: Has the patient had 2 falls in the last year or 1 fall with injury or currently using an Ambulatory Assistive Device (Walker, Cane, Wheelchair, Crutches, etc.)? No PATIENT GENDER DATA: Female. status: : No status: NO. PATIENT RELEVANT IMPLANT DATA REVIEWED: Yes RADIOLOGY DEPARTMENT: MR; Exam(s) Completed: Spine: Cervical spine PERIPHERAL IV DATA: Not applicable SIGNED BY: Sherlyn Haile RT(R)MRJohan RT(R)MR April 20, 2023 5:02 PM documented in this encounter [facility] 04-08-2023 Miscellaneous Notes Attempted to reach again. Not able to leave VM. Rakesh Thompson PA-C Attempted to reach patient to review imaging she completed including EMG and CT and also remind her to reschedule her cervical MRI (no show on 03/11) as well as schedule a follow up with a covering medical spine provider to follow completion of MRI. VM reached and full - not able to leave message. Patient does not have mychart. EMG 04/03/23 shows Chronic motor axon loss changes in left C7 myotome, [id number] in degree electrically, with significant active/ongoing motor axon loss features appreciated in the left pronator teres muscle. Taken together, these findings are most consistent with a subacute on chronic cervical intraspinal lesion affecting left C7 nerve root/segment. There is no definite evidence of a superimposed left median, ulnar or radial mononeuropathy based on screening electrodiagnostic studies in those nerve distributions. CT cervical shows moderate bilateral foraminal stenosis at C5-6 and moderate left foraminal stenosis at C6-7. MRI cervical not completed. Rakesh Thompson PA-C documented in this encounter [facility] 04-03-2023 History of Presen t illness Narrative UNIVERSAL PROTOCOL / SAFETY CHECKLIST Procedure to be Performed: EMG Sign In: A Moment of CARE was completed. Personnel directly involved with the procedure wore the appropriate PPE (Personal Protective Equipment). Patient/Surrogate Stated/Verified: PATIENT VERIFIED(optional for EMERGENT procedures): Patient name, Date of , Relevant allergies, and The intended procedure Time Out Communication: Intended patient and procedure match the source documents. Correct side/site marked and visible. Sign Out: SIGN OUT (optional for EMERGENT procedures): Post-procedure follow-up management communicated and Plan of Care Visit completed when applicable. Rebeca Philip MD Staff, [facility] documented in this encounter [facility] 03-25-2023 History of Presen t illness Narrative Radiology Service Progress Note PATIENT NAME: Aurora Montague DATE OF SERVICE: March 25, 2023 TIME: 3:33 PM PATIENT IDENTITY VERIFICATION COMPLETED USING TWO (2) IDENTIFIERS: Name and Date of confirmed by patient verbally. FALL SCREENING: Has the patient had 2 falls in the last year or 1 fall with injury or currently using an Ambulatory Assistive Device (Walker, Cane, Wheelchair, Crutches, etc.)? No PATIENT GENDER DATA: Female. status: : No status: NO. PATIENT RELEVANT IMPLANT DATA REVIEWED: Yes RADIOLOGY DEPARTMENT: CT; Exam(s) Completed: Spine PERIPHERAL IV DATA: Not applicable SIGNED BY: ERICA Maynard/RT Hazel(R)(CT) March 25, 2023 3:33 PM documented in this encounter [facility] 03-10-2023 History of Presen t illness Narrative Spine Care Path Radicular Arm Pain - Chronic (> 12 weeks) Initial Exam SUBJECTIVE HISTORY OF PRESENT ILLNESS: Aurora Montague is a 47 year old female who presents with a chief complaint of neck and arm pain and is seen in consultation requested by Flower Mcdermott CNP for an opinion regarding neck and arm pain. My final recommendations will be communicated back to the requesting physician by way of shared medical record or letter via US mail. History of Anterior cervical C4/5, C5/6, C6/7 discectomy, C5, C6 corpectomy and fusion on 11/18/16 at [facility]. Prior to surgery she had severe pain in the neck to both shoulders. - pain improved after surgery. After surgery she developed weakness in the left arm. 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 The medial antebrachial nerve also could not be obtained. . MRI cervical, CT cervical and MRI left brachial plexus were also completed at that time. This weakness after surgery did improve some with time but not completely. She is here for another opinion on her symptoms and for new weakness in the left arm. Currently she has burning pain in posterior neck. Comes and goes but mostly constant. Intermittent shooting pain in right side of the neck - base of the skull. Pain throughout the left upper arm to posterior forearm to 2-4 fingers and sometimes thumb. Not sure about 5th digit. Intermittent numbness and tingling in all the left fingers. If she uses the left arm she gets muscle spasm in the left tricep and sometimes down her left side. Occasional twinge of pain in the right arm. Sometimes cramping and locking in the either hand. Started before surgery. Pain in bilateral wrists New weakness in left arm starting in November. Difficulty lifting a blanket over her. Dropping her pen in the right hand for the past year. Able to do buttons and zippers. Some difficulty paper or grabbing small objects. No change in bowel/bladder. Urinary frequency. Balance has always been off. No changes. She has numbness across the bilateral upper and lower jaw which started around June 2022. Left side of the roof of the mouth is numb. This past Thursday she started to have pain in the left side of the face. Seen in ED and prescribed [place] as well as amoxicillin for possible tooth infection. 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 Lots of cervical flexion/extension which aggravates the neck. Sometimes when she looks up she will feel a band snap in the left leg . Smoking 5 cigarettes a day. Working on quitting. She reports an increase in her low back pain following administration of contrast for her CT face 03/08/23. This has improved. States she did have Covid 19 beginning April 2022. Recently following with her PCP for this. MRI cervical spine has been ordered but was denied by insurance due to not having PT. At last office visit 02/16/23 she was referred to [facility] Neurosurgery for evaluation. Interventions: Medications: norco (for face pain), Robaxin, diclofenac 75mg BID -Previously tried: medrol dose pack (11/27/22), prednisone (01/26/23), naproxen - GI bleed/ulcer -tylenol - no relief -topicals - no relief Physical therapy: completed 4 weeks December 2022 - causing more pain. She does continue home exercises Previous spine injection history: none - states nervous of injections Previous spine surgery: -11/18/2016 : Anterior cervical C4/5, C5/6, C6/7 discectomy, C5, C6 corpectomy and fusion with iliac strut graft and Invizia plate with Dr. Harvey at [facility] Treating providers: --Neurosurgery Dr. Mina Browning 01/18/18 for various symptoms including low back pain into bilateral legs, full-body numbness, diffuse aches and pains. baseline chronic pain issues that are diffuse and inorganic in terms of imaging I do not think that this patient would be a great candidate for fusion. In addition she is an active smoker at this time. I will refer her to physical medicine for evaluation for any conservative management including injections or therapy that may be appropriate. In addition I do suspect that there is a component of hip arthropathy so I will obtain right hip x-rays as well. Regarding her upper extremities she does have significant foraminal stenosis that is residual from her anterior approach. Considering this I did offer her a posterior approach to foraminotomies at multiple levels to see if we can improve some of her upper extremity symptoms. At this point the patient is really not interested in any Surgery unless it is mandatory. I advised her that it is definitely not a mandatory procedure I do not think that her deficits worsening are considerably related to these findings. PAIN EVALUATION 03/10/2023 1000 Pain Level: 2 Pain Location: Neck Description: Burning;Sharp;Shooting Duration Amount of Time: 5 Duration Units: Years Frequency: Continuous Intervention/Comfort measure: Medication Litigation: No Workers' Compensation: No YELLOW & BLUE FLAGS No-Neg Attitude; Back Pain is Disabling No-Avoiding Activity (for Fear of Pain) YES-Depression or Anxiety Disorders No-Social Problems No-Substance Use Disorder No-Job Dissatisfaction No-Financial Disincentives Patient Entered Questionnaires PROMIS Score Percentiles Percentiles provide an indication of how the patient's score ranks in relation to the general population. Higher percentile rankings indicate better function/quality of life. 50th percentile is the average of the general population and indicates half of respondents had a worse score. Depression Screening: PHQ-9 Self-Harm (Item 9) response options: 0 Not at all 1 Several days 2 More than half the days 3 Nearly every day PHQ-9 Levels: 0-4 No - mild depression 5-9 Mild depression 10-14 Moderate depression 15-19 Moderately severe depression 20-27 Severe depression There is no problem list on file for this patient. History reviewed. No pertinent past medical history. History reviewed. No pertinent surgical history. History reviewed. No pertinent family history. ALLERGIES Allergen Reactions Nsaids (Non-Steroid* Unknown Stomach upset , GI Issues, bleeding Steroids [Corticost* Unknown PT states Bleeding CURRENT MEDICATIONS: No prescriptions on file. REVIEW OF SYSTEMS: PAIN ASSESSMENT: See HPI. GENERAL: Denies fever, chills CARDIOVASCULAR: Denies chest pain. RESPIRATORY: Denies SOB : Denies bowel or bladder incontinence MUSCULOSKELETAL: Positive for See HPI PSYCHOLOGICAL: Anxiety NEURO: Denies seizures ENDOCRINE: Denies diabetes HEMATOLOGY/LYMPHOLOGY: Denies cancer OBJECTIVE: PHYSICAL EXAM Ht 170.2 cm (5' 7 ) Wt 96.2 kg (212 lb) BMI 33.20 kg/m GENERAL APPEARANCE: Well appearing, well-hydrated, well nourished and alert SKIN: Head, neck, trunk, and extremities dry, intact and without lesions LUNGS: even and non-labored breathing, normal chest excursion NEURO/PSYCH: oriented to time, place, and person, speech normal, mental status intact GAIT: normal, toe walking normal, heel walking normal, difficulty with tandem gait POSTURE: Posture and spinal curves are normal PALPATION: no palpable masses, or spasm, no palpable subluxation or step-off, tenderness to midline lower cervical and upper thoracic spine. Tenderness to bilateral cervical paraspinals and left shoulder MUSCULOSKELETAL: Cervical Range of Motion Flexion Normal Extension Normal RIGHT LEFT Rotation Full ROM without pain Full ROM without pain Lateral Bend Full ROM without pain Full ROM without pain Upper Body Reflex Exam RIGHT LEFT Reflex Status Reflex Status Biceps 2+ Normal 2+ Normal Triceps 2+ Normal 2+ Normal Brachioradialis 2+ Normal 2+ Normal Santana's Sign absent absent Upper Extremity Strength RIGHT LEFT Strength (MMT) Strength (MMT) Shoulder Abduction 5/5 5/5 Biceps 5/5 5/5 Triceps 5/5 3/5 - pain and weakness Resisted Suppination 5/5 4/5 - pain and weakness Wrist Extension 5/5 5/5 Interossei 5/5 5/5 Shoulder Range of Motion RIGHT LEFT Flexion Normal Normal Extension Normal Normal Abduction Normal Normal Adduction Normal Normal Internal Rotation Normal Normal External Rotation Normal Normal Shoulder Tests Neer Impingement Sign - pain in left shoulder Extended Low Back & Leg Exam RIGHT LEFT DTRs Knee Normal Normal Ankle Normal Normal Clonus negative Strength of Lower Extremities Hip Flexion 5/5 5/5 Knee Extension 5/5 5/5 Ankle Dorsiflexion 5/5 5/5 Ankle Plantarflexion 5/5 5/5 NEUROSENSORY: Soft touch; diminished sensation to left radial hand Tinel's test at right wrist tingling into right fingers Tinel's test at right elbow negative Tinel's test at left wrist tingling into left fingers Tinel's test at left elbow tingling in left ulnar forearm to 5th digit Phalen's test numbness in left hand and fingers Data Review: [facility] records independently reviewed Images independently reviewed with the patient Cervical XR 09/03/22 FINDINGS: BONES: Loss of normal cervical lordosis with no acute fracture or spondylolisthesis. Anterior fusion C4-C7 with no mechanical failure. Degenerative spondylosis and facet osteoarthropathy DISC SPACES: Interbody fusion C4-C7 PARASPINOUS: Negative. No paraspinous abnormality is seen. OTHER: Negative. IMPRESSION: Stable anterior fusion C4-C7 MRI lumbar 04/15/22: For the purposes of numbering, sagittal T2 image # 7 extends from the T11-T12 vertebral body superiorly to the L2 level inferiorly. PARASPINAL AREA: Normal with no visible mass. BONES: No fracture, pars defect, or osseous lesion. CORD/CAUDA EQUINA: Normal caliber, contour, and signal intensity. DISC LEVELS: 12-L1: Moderate degenerative disc disease is present without visible neural impingement. L1-L2: Early degenerative disc disease is present without focal protrusion or neural impingement. L2-L3: Early degenerative disc disease is present without focal protrusion or neural impingement. L3-L4: No significant disc/facet abnormality, spinal stenosis, or foraminal stenosis. L4-L5: Moderate diffuse disc bulging without significant central canal narrowing. Mild foramen narrowing bilaterally. Minimal disc height reduction and mild degenerative facet arthropathy. L5-S1: Moderate marked foramen narrowing bilaterally without significant central canal narrowing. Mild diffuse disc bulging with small right paracentral and foraminal broad-based disc protrusion. Moderate degenerative facet arthropathy bilaterally. Lumbar XR 04/04/22: BONES: No significant spondylosis, scoliosis, fracture, or visible bony lesion. DISC SPACES: T12-L1 moderate-marked disc space narrowing. L4-L5 mild narrowing. L5-S1 moderate narrowing. PARASPINOUS: Negative. No paraspinous abnormality is seen. OTHER: Negative. MRI brachial plexus left 03/2017: report only The imaged nerve roots, trunks, divisions, cords, and branches of the brachial plexus appear unremarkable. No evidence of abnormal mass, mass effect, or signal. Limited evaluation of the lungs and soft tissues of the neck demonstrates no abnormality. MRI cervical 03/2017: report only Status post C4-C7 anterior instrumented fusion, C5-6 corpectomy and strut graft placement. Multilevel degenerative disc disease as described above, grossly stable. Spinal canal narrowing, mild at C4-5, minimal at C2-3 and C3-4. Foraminal narrowing, moderate at right C4-5 and bilateral C5-6, mild to moderate at bilateral C6-7, mild at bilateral C3-4 and left C4-5. CT cervical 03/2017: report only BONES/ALIGNMENT: There is normal alignment of the cervical spine. Postoperative changes with C5-C6 corpectomy, strut graft, an anterior cervical fusion from C4-C7 with plate and screws. Hardware appears intact. Clips in the left neck from previous surgery. Stable subtle 5 mm sclerotic focus in T1, likely a bone island. DEGENERATIVE CHANGES: Adequate decompression at the surgical levels without significant spinal stenosis identified within limits of the exam. At C4-C5 there is mild uncovertebral hypertrophy with mild neural foraminal stenosis on the right. At C5-C6 there is mild uncovertebral hypertrophy with mild neural foraminal stenosis, right greater than left. At C6-C7 there is mild bilateral uncovertebral hypertrophy with mild neural foraminal stenoses. Resultant mild multilevel neural foraminal stenoses. C7-T1 disc space appears unremarkable. SOFT TISSUES: There is no prevertebral soft tissue swelling. Lung apices show mild emphysematous changes and scarring. Shotty cervical lymph nodes. ASSESSMENT/PLAN (M54.12) Radiculopathy, cervical region (primary encounter diagnosis) (Z98.1) S/P cervical spinal fusion (R20.0, R20.2) Numbness and tingling in left arm (M62.838) Spasm of muscle 47 year old female with history of C4-7 anterior fusion 11/2016 at [facility]. She developed weakness in the left arm following surgery which did improve some but she continues to have weakness primarily in the left tricep. She will also develop muscle spasms in the tricep. Pain in neck to left arm. Reports new weakness in left arm with suppination. Occasional cramping in hands. She has worked with physical therapy for 4 weeks in December 2022 with continued HEP without relief. Recommend further workup with CT and MRI cervical spine and EMG for interventional planning. Encouraged smoking cessation. 1. Imaging/diagnostics: EMG, cervical CT and MRI 2. Physical therapy: continue HEP 3. Medication: continue current 4. Referrals: none 5. Considerations: [facility], spine surgery, center for chronic pain. Consider neurology for facial numbness. 6. Follow up: after imaging completed I spent a total of 55 minutes on the date of the service which included preparing to see the patient, [id number] patient care, completing clinical documentation, obtaining and/or reviewing separately obtained history, performing a medically appropriate examination, counseling and educating the patient/family/caregiver, ordering medications, tests, or procedures, independently interpreting results (not separately reported), and communicating results to the patient/family/caregiver. Imaging Ordered: For possible Cervical Radiculopathy due to interventional planning, surgical planning, progressive arm weakness, arm pain unresponsive to medical management, and Failure of conservative treatments listed in HPI/Conservative Treatment Section (NSAIDs, PT, HEP and/or [employer] within last 3-6 months) . physical therapy for 4 weeks in December 2022 with continued HEP without relief. SIGNATURE: Rakesh Thompson PA-C PATIENT NAME: Aurora Montague DATE: March 10, 2023 TIME: 9:45 AM documented in this encounter [facility] 09-26-2022 Evaluation note Encounter Date Diagnosis Assessment Notes Sep, Acute non-recurrent sinusitis, unspecified location (ICD-10 - J01.90) Pt is to take abx as prescribed with food. Daily flonase and antihistamine. Push fluids and rest. Pt is to take otc antipyretic prn for fever and aches. Pt is to take otc cough suppressant prn for cough. No q tips in ear canal until small abrasion is healed. Pt is to be re-evaluated after tx if sx worsen or don't improve by pcp or UC. Pt is to call the office with any questions or concerns regarding dx and tx. Pt understood and agreed to tx plan. [facility] Other 04-07-2022 Evaluation note* Encounter Date Diagnosis Assessment Notes Treatment Notes Treatment Clinical Notes Jan, Pain of left calf (ICD-10 - M79.662) Jan, Strain of gastrocnemius muscle of left lower extremity, initial encounter (ICD-10 - S86.112A) We will treat this as a gastroc strain for now. Extensive discussion about current condition and treatment options available. Instructed on stretching and strengthening exercises, these were demonstrated. Avoid impact exercises, suggested to do biking and leg press. Patient declines formal therapy order today. Instructed on use of massage. If no improvement, may consider MRI. Call with questions/concerns. [facility] Other 01-13-2022 Evaluation note* Encounter Date Diagnosis Assessment Notes Treatment Notes Treatment Clinical Notes Nov, Injury of right foot, initial encounter (ICD-10 - S99.921A) FINAL READ shows no acute bony abnormality. Results were reviewed and discussed with pt in office at time of visit and they verbally understood these findings. Nov, Contusion of right foot, initial encounter (ICD-10 - S90.31XA) Pt to take otc nsaid prn as directed for pain and swelling. Ice first 48 hrs as directed, then moist heat thereafter. RICE therapy. No heavy lifting or strenuous exercise. Pt to f/u as needed for any persistent or worsening symptoms. Pt understood and agreed to treatment plan. 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 Work Phone: Evalujdmlb note* Diagnosis Onset Date Resolution Status Contusion of right hand none active [facility] Work Phone: Evaluation note* Diagnosis Left arm weakness- Primary Other musculoskeletal symptoms referable to limbs Neck pain Cervicalgia Numbness and tingling in both hands Pain in both hands S/P cervical spinal fusion Arthrodesis status Chronic bilateral low back pain with right-sided sciatica [facility] Diagnosis Chronic abdominal pain- Primary Abdominal pain, unspecified site Gastroesophageal reflux disease with esophagitis without hemorrhage Nausea Nausea alone PUD (peptic ulcer disease) Peptic ulcer, unspecified site, unspecified as acute or chronic, without mention of hemorrhage, perforation, or obstruction Rectal bleeding Hemorrhage of rectum and anus Irritable bowel syndrome with both constipation and diarrhea [facility] this [facility]* Diagnosis Lumbar spondylosis- Primary Lumbosacral spondylosis without myelopathy Chronic bilateral low back pain with bilateral sciatica Pain in right hip Pain in joint, pelvic region and thigh [facility] Diagnosis S/P cervical spinal fusion Arthrodesis status Left arm weakness Other musculoskeletal symptoms referable to limbs Neck pain Cervicalgia Numbness and tingling in both hands Pain in both hands [facility] Diagnosis Chronic abdominal pain Abdominal pain, unspecified site Nausea Nausea alone documented in this encounter [facility] note* Diagnosis Chronic midline low back pain without sciatica- Primary Lumbar spondylosis Lumbosacral spondylosis without myelopathy Chronic bilateral low back pain with bilateral sciatica Pain in right hip Pain in joint, pelvic region and thigh documented in this encounter [facility] note* Diagnosis Chronic midline low back pain without sciatica- Primary documented in this encounter [facility] note* Diagnosis Chronic midline low back pain without sciatica- Primary documented in this encounter [facility] note* Diagnosis Gastroesophageal reflux disease with esophagitis without hemorrhage Nausea Nausea alone PUD (peptic ulcer disease) Peptic ulcer, unspecified site, unspecified as acute or chronic, without mention of hemorrhage, perforation, or obstruction Rectal bleeding Hemorrhage of rectum and anus Irritable bowel syndrome with both constipation and diarrhea documented in this encounter [facility] note* Diagnosis Chronic bilateral low back pain with right-sided sciatica documented in this encounter [facility] note* Diagnosis Radiculopathy, cervical region Brachial neuritis or radiculitis nos S/P cervical spinal fusion Arthrodesis status Numbness and tingling in left arm Disturbance of skin sensation Spasm of muscle documented in this encounter [facility] note* Diagnosis Radiculopathy, cervical region Brachial neuritis or radiculitis nos S/P cervical spinal fusion Arthrodesis status Numbness and tingling in left arm Disturbance of skin sensation Spasm of muscle documented in this encounter [facility] note* Diagnosis Chronic midline low back pain without sciatica- Primary documented in this encounter [facility] Narrative - Reported* Type Description Date Medical History anxiety Medical History degenerative disc disease Medical History Acid reflux Medical History nerve damage Medical History incontinent of urine Surgical History neck surgery Surgical History oral surgry Surgical History LEEP Surgical History CONE Surgical History laparoscopy Surgical History [place] teeth Surgical History hysterectomy Hospitalization History see above Hospitalization History [facility] Other Reason for referral (narrative)* Outpatient Procedure (Routine) - Pending Review Specialty Diagnoses / Procedures Referred By Roberto irizarry Referred To [facility] Diagnoses Radiculopathy, cervical region Numbness and tingling in left arm Spasm of muscle Procedures EMG(NEURO/NI) NERVE CONDUCTION STUDIES 9-10 STUDIES Rakesh Thompson PA-C [address] [place] [address] [facility] [address] [place] [address] Referral ID Status Reason Start Date Expiration Date Visits Requested Visits Authorized [id number] Pending Review Auto-Generat ed Referral 03/10/2023 03/10/2024 1 1 * MRI/CT (Routine) - Additional Clinical Info Needed Specialty Diagnoses / Procedures Referred By Contac t Referred To Contact CT IMAGING Diagnoses Radiculopathy, cervical region S/P cervical spinal fusion Numbness and tingling in left arm Spasm of muscle Procedures CT CERVICAL SPINE WO IVCON CT CERVICAL SPINE W/O CONTRAST MATERIAL Rakesh Thompson PA-C [address] [place] [address] Ct Imaging Referral ID Status Reason Start Date Expiration Date Visits Requested Visits Authorized [id number] Additional Clinical Info Needed Auto-Generat ed Referral 03/10/2023 04/08/2024 1 1 * MRI/CT (Routine) - Additional Clinical Info Needed Specialty Diagnoses / Procedures Referred By Contac t Referred To Contact MR IMAGING Diagnoses Radiculopathy, cervical region S/P cervical spinal fusion Numbness and tingling in left arm Spasm of muscle Procedures MRI CERVICAL SPINE WO IVCON MRI SPINAL CANAL CERVICAL W/O CONTRAST MATRL Rakesh Thompson PA-C [address] [place] [address] Mr Imaging Referral ID Status Reason Start Date Expiration Date Visits Requested Visits Authorized [id number] Additional Clinical Info Needed Patient Cleared - Admin/Chair man/Directo r advise to proceed 03/10/2023 04/08/2024 1 1 [facility] for referral (narrative)* Diagnostic Procedure Only (Routine) - Closed Specialty Diagnoses / Procedures Referred By Contac t Referred To Contact XR IMAGING Diagnoses Chronic bilateral low back pain with right-sided sciatica Procedures XR LUMBAR LIMITED 2V AP/LAT RADEX SPINE LUMBOSACRAL 2/3 VIEWS Rakesh Thompson PA-C [address] [place] [address] [place] [id number] Referral ID Status Reason Start Date Expiration Date V isits Requested Visits Authorized [id number] Closed Auto-Generate d Referral 02/19/2024 03/20/2025 1 1 * Physical Therapy (Routine) - Authorized Specialty Diagnoses / Procedures Referred By Contac t Referred To Contact [facility] Diagnoses S/P cervical spinal fusion Left arm weakness Neck pain Numbness and tingling in both hands Pain in both hands Procedures CONSULT TO PHYSICAL THERAPY PHYSICAL THERAPY EVALUATION HIGH COMPLEX 45 MINS Rakesh Thompson PA-C [address] [place] [address] [facility] [address] [address] Referral ID Status Reason Start Date Expiration Date Visits Requested Visits Authorized [id number] Authorized Auto-Generat ed Referral 11/02/2023 11/01/2024 1 1 [facility] for referral (narrative)* Outpatient Procedure (Routine) - Authorized Specialty Diagnoses / Procedures Referred By Contac t Referred To Contact [facility] Diagnoses Rectal bleeding Irritable bowel syndrome with both constipation and diarrhea Procedures COLONOSCOPY DIAGNOSTIC COLONOSCOPY FLX DX W/[place] [address] [place] [address] [facility] [address] [place] [address] Referral ID Status Reason Start Date Expiration Date Visits Requested Visits Authorized [id number] Authorized Auto-Generat ed Referral 02/29/2024 02/28/2025 1 1 * Outpatient Procedure (Routine) - Authorized Specialty Diagnoses / Procedures Referred By Contac t Referred To Contact [facility] Diagnoses Gastroesophageal reflux disease with esophagitis without hemorrhage Nausea PUD (peptic ulcer disease) Procedures EGD DIAGNOSTIC ESOPHAGOGASTRODUODENOSC OPY [place]ANS[place] [address] [place] [address] [facility] [address] [place] [id number] Referral ID Status Reason Start Date Expiration Date Visits Requested Visits Authorized [id number] Authorized Auto-Generat ed Referral 02/29/2024 02/28/2025 1 1 * MRI/CT (Routine) - Additional Clinical Info Needed Specialty Diagnoses / Procedures Referred By Contac t Referred To Contact CT IMAGING Diagnoses Chronic abdominal pain Nausea Procedures CT ABD/PEL W IVCON CT ABD & PELVIS W/[place] [address] [place] [address] [address] Imaging [id number] Referral ID Status Reason Start Date Expiration Date Visits Requested Visits Authorized [id number] Additional Clinical Info Needed Auto-Generat ed Referral 02/29/2024 03/30/2025 1 1 [facility] for referral (narrative)* Diagnostic Procedure Only (Routine) - Closed Specialty Diagnoses / Procedures Referred By Contac t Referred To Contact XR IMAGING Diagnoses Chronic bilateral low back pain with right-sided sciatica Procedures XR LUMBAR LIMITED 2V AP/LAT RADEX SPINE LUMBOSACRAL 2/3 VIEWS Rakesh Thompson PA-C [address] [place] [address] Xr Imaging [id number] Referral ID Status Reason Start Date Expiration Date V isits Requested Visits Authorized [id number] Closed Auto-Generate d Referral 02/19/2024 03/20/2025 1 1 [facility] Procedure (Routine) - Closed Specialty Diagnoses / Procedures Referred By Contac t Referred To Contact [facility] Diagnoses Rectal bleeding Irritable bowel syndrome with both constipation and diarrhea Procedures COLONOSCOPY DIAGNOSTIC COLONOSCOPY FLX DX W/[place] [address] [place] [address] [facility] [address] [place] [address] Referral ID Status Reason Start Date Expiration Date V isits Requested Visits Authorized [id number] Closed Auto-Generate d Referral 02/29/2024 02/28/2025 1 1 [facility] Summary Purpose Family History No Family History Records Found Relationship Condition Age at Onset Recorded Date/T enoc father Unknown Not Specified Unknown Advance Directives No Advanced Directives Records Found Advance Directive Response Recorded Date/ Time Advance Directives No January 03 9:18pm Chief Complaint and Reason for Visit Chief Complaint right hand pain w in jury M79.641 - Pain in right hand Chief Complaint right hand pain w in jury M79.641 - Pain in right hand Reason for Visit Contusion of right h and Reason for Referral Specialty Diagnoses / Procedures Referred By Contac t Referred To Contact CT IMAGING Diagnoses Radiculopathy, cervical region S/P cervical spinal fusion Numbness and tingling in left arm Spasm of muscle Procedures CT CERVICAL SPINE WO IVCON CT CERVICAL SPINE W/O CONTRAST MATERIAL Rakesh Thompson PA-C [address] [place] [address] [place] [id number] Referral ID Status Reason Start Date Expiration Date V isits Requested Visits Authorized [id number] Closed Auto-Generate d Referral 03/11/2023 05/10/2023 1 1 Specialty Diagnoses / Procedures Referred By Contac t Referred To Contact MR IMAGING Diagnoses Radiculopathy, cervical region S/P cervical spinal fusion Numbness and tingling in left arm Spasm of muscle Procedures MRI CERVICAL SPINE WO IVCON MRI SPINAL CANAL CERVICAL W/O CONTRAST Rakesh Dave PA-C [address] [place] [address] [place] [address] Referral ID Status Reason Start Date Expiration Date V isits Requested Visits Authorized [id number] Closed Patient Cleared - Admin/Chairm an/Director advise to proceed or did not respond 03/11/2023 05/10/2023 1 1 Specialty Diagnoses / Procedures Referred By Roberto [place] [address] [place] [address] Referral ID Status Reason Start Date Expiration Date Visits Re quested Visits Authorized [id number] Denied 1 1 Specialty Diagnoses / Procedures Referred By Contac t Referred To Contact [facility] Diagnoses Rectal bleeding Irritable bowel syndrome with both constipation and diarrhea Procedures COLONOSCOPY DIAGNOSTIC COLONOSCOPY FLX DX W/COLLJ [place] [address] [place] [address] [place] [address] Referral ID Status Reason Start Date Expiration Date V isits Requested Visits Authorized [id number] Closed Auto-Generate d Referral 02/29/2024 02/28/2025 1 1 Specialty Diagnoses / Procedures Referred By Contac t Referred To Contact [facility] Diagnoses Gastroesophageal reflux disease with esophagitis without hemorrhage Nausea PUD (peptic ulcer disease) Procedures EGD DIAGNOSTIC ESOPHAGOGASTRODUODENOSC OPY [place]ANS[place] [address] [place] [address] [facility] [address] [address] Referral ID Status Reason Start Date Expiration Date V isits Requested Visits Authorized [id number] Closed Auto-Generate d Referral 02/29/2024 02/28/2025 1 1 Specialty Diagnoses / Procedures Referred By Contac t Referred To Contact CT IMAGING Diagnoses Chronic abdominal pain Nausea Procedures CT ABD/PEL W IVCON CT ABD & PEL[place] W/[place] [address] [place] [address] [address] [id number] Referral ID Status Reason Start Date Expiration Date V isits Requested Visits Authorized [id number] Closed Auto-Generate d Referral 03/08/2024 05/07/2024 1 1 Specialty Diagnoses / Procedures Referred By Contac t Referred To Contact [facility] Diagnoses S/P cervical spinal fusion Left arm weakness Neck pain Numbness and tingling in both hands Pain in both hands Procedures PT REHAB FOLLOW UP ORDER THERAPEUTIC EXERCISES RE, EA 15 MIN. Dunia Aranda, PT, DPT [address] [place] [address] [facility] [place] [id number] Referral ID Status Reason Start Date Expiration Date Visits Requested Visits Authorized [id number] Pending Review PCP Requested Referral Auto-Generate d Referral 03/18/2024 06/16/2024 1 1 Specialty Diagnoses / Procedures Referred By Contac t Referred To Contact [facility] Diagnoses Lumbar spondylosis Chronic bilateral low back pain with bilateral sciatica Pain in right hip Procedures CONSULT TO PHYSICAL THERAPY PHYSICAL THERAPY EVALUATION HIGH COMPLEX 45 MINS Rakesh Thompson PA-C [address] [place] [address] [facility] [address] [address] Referral ID Status Reason Start Date Expiration Date Visits Requested Visits Authorized [id number] Pending Review Auto-Generat ed Referral 03/11/2024 03/11/2025 1 1 Additional Source Comments INFORMATION SOURCE (unrecogn ized section and content) DATE CREATED AUTHOR 04/21/2018 [facility] DATE CREATED AUTHOR AUTHOR'S ORGANIZ ATION 04/22/2018 [facility] DATE CREATED AUTHOR AUTHOR'S ORGANIZ ATION 02/12/2023 [facility] DATE CREATED AUTHOR AUTHOR'S ORGANIZ ATION 03/15/2023 [facility] DATE CREATED AUTHOR AUTHOR'S ORGANIZ ATION 06/17/2024 [facility]ical [facility] EPIC DATE CREATED AUTHOR AUTHOR'S ORGANIZ ATION 07/10/2024 [facility] DATE CREATED AUTHOR AUTHOR'S ORGANIZ ATION 08/06/2024 [facility] REASON FOR VISIT (unrecogniz ed section and content) Reason Comments PT Discharge Specialty Diagnoses / Procedures Referred By Contac t Referred To Contact Physical Therapy / PHYSICAL THERAPY Diagnoses hip and back Procedures EST RS PT ORTH MSK Rakesh Thompson PA-C [address] [place] [address] Angelic Pope, PT [address] [place] [address] Referral ID Status Reason Start Date Expiration Date V isits Requested Visits Authorized [id number] Authorized 07/04/2024 10/01/2024 5 5 Reason Comments Physical Therapy Reason Comments New Patient Nov 2016 had cervica l surgery C4-C7, Neck and going down Left arm pain, lack of ROM without severe pain Reason Onset Date Comments EMG 04/04/2023 Specialty Diagnoses / Procedures Referred By Contac t Referred To Contact [facility] Diagnoses Radiculopathy, cervical region Numbness and tingling in left arm Spasm of muscle Procedures EMG(NEURO/NI) NERVE CONDUCTION STUDIES 9-10 STUDIES Rakesh Thompson PA-C [address] [place] [address] [facility] [address] [place] [address] Referral ID Status Reason Start Date Expiration Date V isits Requested Visits Authorized [id number] Closed Auto-Generate d Referral 03/10/2023 03/10/2024 1 1 Reason Comments Results Reason Comments Established Patient MRI EMG and CT test results Reason Comments GERD Reason Comments Follow Up Follow up/ new onset back pain . Reason Comments PT Eval Patient Education Specialty Diagnoses / Procedures Referred By Contac t Referred To Contact [facility] Diagnoses S/P cervical spinal fusion Left arm weakness Neck pain Numbness and tingling in both hands Pain in both hands Procedures CONSULT TO PHYSICAL THERAPY PHYSICAL THERAPY EVALUATION HIGH COMPLEX 45 MINS Rakesh Thompson PA-C [address] [place] [address] [facility] [address] [address] Referral ID Status Reason Start Date Expiration Date V isits Requested Visits Authorized [id number] Closed Auto-Generate d Referral 11/02/2023 11/01/2024 1 1 Specialty Diagnoses / Procedures Referred By Contac t Referred To Contact CT IMAGING Diagnoses Chronic abdominal pain Nausea Procedures CT ABD/PEL W IVCON CT ABD & PEL[place] W/[place] [address] [place] [address] [place] [address] Referral ID Status Reason Start Date Expiration Date V isits Requested Visits Authorized [id number] Closed Auto-Generate d Referral 03/08/2024 05/07/2024 1 1 Reason Comments Insurance Authorization ELAINE shaw Specialty Diagnoses / Procedures Referred By Contac t Referred To Contact [facility] Diagnoses S/P cervical spinal fusion Left arm weakness Neck pain Numbness and tingling in both hands Pain in both hands Procedures PT REHAB FOLLOW UP ORDER THERAPEUTIC EXERCISES RE, EA 15 MIN. Dunia Aranda, PT, DPT [address] [place] [address] [facility] [address] [address] Referral ID Status Reason Start Date Expiration Date Visits Requested Visits Authorized [id number] Authorized PCP Requested Referral Auto-Generate d Referral 03/22/2024 07/03/2024 8 8 Specialty Diagnoses / Procedures Referred By Contac t Referred To Contact [facility] Diagnoses S/P cervical spinal fusion Left arm weakness Neck pain Numbness and tingling in both hands Pain in both hands Procedures PT REHAB FOLLOW UP ORDER THERAPEUTIC EXERCISES RE, EA 15 MIN. Dunia Aranda, PT, DPT [address] [place] [address] [facility] [address] [place] [address] Reason Comments Refill Request Carafate Reason Comments Radio Gen RMP Specialty Diagnoses / Procedures Referred By Contac t Referred To Contact XR IMAGING Diagnoses Chronic bilateral low back pain with right-sided sciatica Procedures XR LUMBAR LIMITED 2V AP/LAT RADEX SPINE LUMBOSACRAL 2/3 VIEWS Rakesh Thompson PA-C [address] [place] [id number] Xr Imaging [place] [address] Referral ID Status Reason Start Date Expiration Date V isits Requested Visits Authorized [id number] Closed Auto-Generate d Referral 02/19/2024 03/20/2025 1 1 Reason Comments Radiology MRI Specialty Diagnoses / Procedures Referred By Contac t Referred To Contact MR IMAGING Diagnoses Radiculopathy, cervical region S/P cervical spinal fusion Numbness and tingling in left arm Spasm of muscle Procedures MRI CERVICAL SPINE WO IVCON MRI SPINAL CANAL CERVICAL W/O CONTRAST MATRL Rakesh Thompson PA-C [address] [place] [id number] Mr Imaging [place] [address] Referral ID Status Reason Start Date Expiration Date V isits Requested Visits Authorized [id number] Closed Patient Cleared - Admin/Chairm an/Director advise to proceed or did not respond 03/11/2023 05/10/2023 [address] Specialty Diagnoses / Procedures Referred By Contac t Referred To Contact CT IMAGING Diagnoses Radiculopathy, cervical region S/P cervical spinal fusion Numbness and tingling in left arm Spasm of muscle Procedures CT CERVICAL SPINE WO IVCON CT CERVICAL SPINE W/O CONTRAST MATERIAL Rakesh Thompson PA-C [address] [place] [id number] [id number] Referral ID Status Reason Start Date Expiration Date V isits Requested Visits Authorized [id number] Closed Auto-Generate d Referral 03/11/2023 05/10/2023 1 1 Reason Comments Refill Request Source Comments (unrecognize d section and content) In the event this informatio n is protected by the Federal Confidentiality of Alcohol and Drug Abuse Patient Records regulations: The Federal rules restrict any use of the information to criminally investigate or prosecute any alcohol or drug abuse patient.[facility] the event this information is protected by the Federal Confidentiality of Alcohol and Drug Abuse Patient Records regulations: The Federal rules restrict any use of the information to criminally investigate or prosecute any alcohol or drug abuse patient.[facility] the event this information is protected by the Federal Confidentiality of Alcohol and Drug Abuse Patient Records regulations: The Federal rules restrict any use of the information to criminally investigate or prosecute any alcohol or drug abuse patient.[facility] the event this information is protected by the Federal Confidentiality of Alcohol and Drug Abuse Patient Records regulations: The Federal rules restrict any use of the information to criminally investigate or prosecute any alcohol or drug abuse patient.[facility] the event this information is protected by the Federal Confidentiality of Alcohol and Drug Abuse Patient Records regulations: The Federal rules restrict any use of the information to criminally investigate or prosecute any alcohol or drug abuse patient.[facility] the event this information is protected by the Federal Confidentiality of Alcohol and Drug Abuse Patient Records regulations: The Federal rules restrict any use of the information to criminally investigate or prosecute any alcohol or drug abuse patient.[facility] the event this information is protected by the Federal Confidentiality of Alcohol and Drug Abuse Patient Records regulations: The Federal rules restrict any use of the information to criminally investigate or prosecute any alcohol or drug abuse patient.[facility] the event this information is protected by the Federal Confidentiality of Alcohol and Drug Abuse Patient Records regulations: The Federal rules restrict any use of the information to criminally investigate or prosecute any alcohol or drug abuse patient.[facility] the event this information is protected by the Federal Confidentiality of Alcohol and Drug Abuse Patient Records regulations: The Federal rules restrict any use of the information to criminally investigate or prosecute any alcohol or drug abuse patient.[facility] the event this information is protected by the Federal Confidentiality of Alcohol and Drug Abuse Patient Records regulations: The Federal rules restrict any use of the information to criminally investigate or prosecute any alcohol or drug abuse patient.[facility] the event this information is protected by the Federal Confidentiality of Alcohol and Drug Abuse Patient Records regulations: The Federal rules restrict any use of the information to criminally investigate or prosecute any alcohol or drug abuse patient.[facility] the event this information is protected by the Federal Confidentiality of Alcohol and Drug Abuse Patient Records regulations: The Federal rules restrict any use of the information to criminally investigate or prosecute any alcohol or drug abuse patient.[facility] the event this information is protected by the Federal Confidentiality of Alcohol and Drug Abuse Patient Records regulations: The Federal rules restrict any use of the information to criminally investigate or prosecute any alcohol or drug abuse patient.[facility] the event this information is protected by the Federal Confidentiality of Alcohol and Drug Abuse Patient Records regulations: The Federal rules restrict any use of the information to criminally investigate or prosecute any alcohol or drug abuse patient.[facility] the event this information is protected by the Federal Confidentiality of Alcohol and Drug Abuse Patient Records regulations: The Federal rules restrict any use of the information to criminally investigate or prosecute any alcohol or drug abuse patient.[facility] Center[facility] the event this information is protected by the Federal Confidentiality of Alcohol and Drug Abuse Patient Records regulations: The Federal rules restrict any use of the information to criminally investigate or prosecute any alcohol or drug abuse patient.[facility] Center[facility] the event this information is protected by the Federal Confidentiality of Alcohol and Drug Abuse Patient Records regulations: The Federal rules restrict any use of the information to criminally investigate or prosecute any alcohol or drug abuse patient.[facility] Center[facility] the event this information is protected by the Federal Confidentiality of Alcohol and Drug Abuse Patient Records regulations: The Federal rules restrict any use of the information to criminally investigate or prosecute any alcohol or drug abuse patient.[facility] Center[facility] the event this information is protected by the Federal Confidentiality of Alcohol and Drug Abuse Patient Records regulations: The Federal rules restrict any use of the information to criminally investigate or prosecute any alcohol or drug abuse patient.[facility] Center[facility] the event this information is protected by the Federal Confidentiality of Alcohol and Drug Abuse Patient Records regulations: The Federal rules restrict any use of the information to criminally investigate or prosecute any alcohol or drug abuse patient.[facility] Center[facility] the event this information is protected by the Federal Confidentiality of Alcohol and Drug Abuse Patient Records regulations: The Federal rules restrict any use of the information to criminally investigate or prosecute any alcohol or drug abuse patient.[facility] Center[facility] the event this information is protected by the Federal Confidentiality of Alcohol and Drug Abuse Patient Records regulations: The Federal rules restrict any use of the information to criminally investigate or prosecute any alcohol or drug abuse patient.[facility] Center[facility] the event this information is protected by the Federal Confidentiality of Alcohol and Drug Abuse Patient Records regulations: The Federal rules restrict any use of the information to criminally investigate or prosecute any alcohol or drug abuse patient.[facility] Care Teams (unrecognized sec tion and content) Fast Food Attendant Relationship Specialty Start Date End Date Hugo Mendez MD [address] [facility] [place] [address] PCP - General Family Medicine 02/19/23 Flower Mcdermott, ART HISTORIAN [address] [place] [facility] [place] [address] Internal Medicine 02/19/23 Fast Food Attendant Relationship Specialty Start Date End Date Hugo Mendez MD [address] [facility] [place] [address] PCP - General Family Medicine 02/19/23 Flower Mcdermott, ART HISTORIAN [address] [place] [place] [address] Internal Medicine 02/19/23 Fast Food Attendant Relationship Specialty Start Date End Date Hugo Mendez MD [address] [facility] [place] [address] PCP - General Family Medicine 02/19/23 Flower Mcdermott, ART HISTORIAN [address] [place] [place] [address] Internal Medicine 02/19/23 Team Status: Active Member Role Status Dates NON STAFF Primary Care Provider Active Team Status: Inactive Member Role Status Dates NON STAFF Primary Care Provider Active Start: February 15, 2024 End: February 15, 2024 SAAD Ca Attending Provider Active S tart: February 15, 2024 End: February 15, 2024 Team Status: Active Member Role Status Dates NON STAFF Primary Care Provider Active Start: February 15, 2024 SAAD Ca Attending Provider Active S tart: February 15, 2024 Fast Food Attendant Relationship Specialty Start Date End Date Hugo Mendez MD [address] [facility] [place] [address] PCP - General Family Medicine 02/19/23 Flower Mcdermott, ART HISTORIAN [address] [place] [place] [address] Internal Medicine 02/19/23 Hugo Mendez MD [address] [place] [place] [address] Referring Family Medicine 12/01/23 Fast Food Attendant Relationship Specialty Start Date End Date Hugo Mendez MD [address] [place] [address] PCP - General Family Medicine 02/19/23 Flower Mcdermott, ART HISTORIAN [address] [place] [place] [address] Internal Medicine 02/19/23 Hugo Mendez MD [address] [place] [address] Referring Family Medicine 12/01/23 Fast Food Attendant Relationship Specialty Start Date End Date Hugo Mendez MD [address] [place] [address] PCP - General Family Medicine 02/19/23 Flower Mcdermott, ART HISTORIAN [address] [place] [place] [address] Internal Medicine 02/19/23 Hugo Mendez MD [address] [place] [address] Referring Family Medicine 12/01/23 Fast Food Attendant Relationship Specialty Start Date End Date Hugo Mendez MD [address] [place] [address] PCP - General Family Medicine 02/19/23 Flower Mcdermott, ART HISTORIAN [address] [place] [place] [address] Internal Medicine 02/19/23 Hugo Mendez MD [address] [place] [address] Referring Family Medicine 12/01/23 Fast Food Attendant Relationship Specialty Start Date End Date Hugo Mendez MD [address] [place] [address] PCP - General Family Medicine 02/19/23 Flower Mcdermott, ART HISTORIAN [address] [place] [place] [address] Internal Medicine 02/19/23 Hugo Mendez MD [address] [place] [address] Referring Family Medicine 12/01/23 Fast Food Attendant Relationship Specialty Start Date End Date uHgo Mendez MD [address] [place] [address] PCP - General Family Medicine 02/19/23 Flower Mcdermott, ART HISTORIAN [address] [place] [place] [address] Internal Medicine 02/19/23 Hugo Mendez MD [address] [place] [address] Referring Family Medicine 12/01/23 Fast Food Attendant Relationship Specialty Start Date End Date Hugo Mendez MD [address] [place] [address] PCP - General Family Medicine 02/19/23 Flower Mcdermott, ART HISTORIAN [address] [place] [place] [address] Internal Medicine 02/19/23 Hugo Mendez MD [address] [place] [address] Referring Family Medicine 12/01/23 Fast Food Attendant Relationship Specialty Start Date End Date Hugo Mendez MD [address] [place] [address] PCP - General Family Medicine 02/19/23 Flower Mcdermott, ART HISTORIAN [address] [place] [address] Internal Medicine 02/19/23 Hugo Mendez MD [address] [place] [address] Referring Family Medicine 12/01/23 Fast Food Attendant Relationship Specialty Start Date End Date Hugo Mendez MD [address] [place] [address] PCP - General Family Medicine 02/19/23 Flower Mcdermott, ART HISTORIAN [address] [place] [place] [address] Internal Medicine 02/19/23 Hugo Mendez MD [address] [place] [address] Referring Family Medicine 12/01/23 Fast Food Attendant Relationship Specialty Start Date End Date Hugo Mendez MD [address] [place] [address] PCP - General Family Medicine 02/19/23 Flower Mcdermott, ART HISTORIAN [address] [place] [place] [address] Internal Medicine 02/19/23 Hugo Mendez MD [address] [place] [address] Referring Family Medicine 12/01/23 Fast Food Attendant Relationship Specialty Start Date End Date Hugo Mendez MD [address] [place] [address] PCP - General Family Medicine 02/19/23 Flower Mcdermott, ART HISTORIAN [address] [place] [address] Internal Medicine 02/19/23 Hugo Mendez MD [address] [place] [address] Referring Family Medicine 12/01/23 Fast Food Attendant Relationship Specialty Start Date End Date Hugo Mendez MD [address] [place] [address] PCP - General Family Medicine 02/19/23 Flower Mcdermott, ART HISTORIAN [address] [place] [address] Internal Medicine 02/19/23 Hugo Mendez MD [address] [place] [address] Referring Family Medicine 12/01/23 Fast Food Attendant Relationship Specialty Start Date End Date Hugo Mendez MD [address] [place] [address] PCP - General Family Medicine 02/19/23 Flower Mcdermott, ART HISTORIAN [address] [place] [address] Internal Medicine 02/19/23 Hugo Mendez MD [address] [place] [address] Referring Family Medicine 12/01/23 Fast Food Attendant Relationship Specialty Start Date End Date Huog Mendze MD [address] [place] [address] PCP - General Family Medicine 02/19/23 Flower Mcdermott, ART HISTORIAN [address] [place] [address] Internal Medicine 02/19/23 Hugo Mendez MD [address] [place] [address] Referring Family Medicine 12/01/23 Fast Food Attendant Relationship Specialty Start Date End Date Hugo Mendze MD [address] [place] [address] PCP - General Family Medicine 02/19/23 Flower Mcdermott, ART HISTORIAN [address] [place] [address] Internal Medicine 02/19/23 Fast Food Attendant Relationship Specialty Start Date End Date Hugo Mendez MD [address] [place] [address] PCP - General Family Medicine 02/19/23 Flower Mcdermott, ART HISTORIAN [address] [place] [address] Internal Medicine 02/19/23 Fast Food Attendant Relationship Specialty Start Date End Date Hugo Mendez MD [address] [place] [address] PCP - General Family Medicine 02/19/23 Flower Mcdermott, ART HISTORIAN [address] [place] [address] Internal Medicine 02/19/23 Hugo Mendez MD [address] [place] [address] Referring Family Medicine 12/01/23 Fast Food Attendant Relationship Specialty Start Date End Date Hugo Mendez MD [address] [place] [address] PCP - General Family Medicine 02/19/23 Flower Mcdermott, NAHUM [address] [place] [address] Internal Medicine 02/19/23 Hugo Mendez MD [address] [place] [address] Referring Family Medicine 12/01/23 Goals (unrecognized section and content) Goals may be documented in a n alternate section FOR RECORDS PERTAINING TO PATIENTS WHO ARE OR HAVE BEEN ENROLLED IN A CHEMICAL DEPENDENCY/SUBSTANCEABUSE PROGRAM, SOME INFORMATION MAY BE OMITTED. This clinical summary was aggregated from multiple sources. Caution should be exercised in using it in the provision of clinical care. This summary normalizes information from multiple sources, and as a consequence, information in this document may materially change the coding, format and clinical context of patient data. In addition, data may be omitted in some cases. CLINICAL DECISIONS SHOULD BE BASED ON THE PRIMARY CLINICAL RECORDS. [facility] [employer] [facility]. provides no warranty or guarantee of the accuracy or completeness of information in this document.
[2024-08-08 16:21] LABS: Bilirubin Urine NEGATIVE (NEGATIVE); Blood Urine NEGATIVE (NEGATIVE); Clarity Urine CLEAR (CLEAR); Color Urine LT. YELLOW (YELLOW); Glucose Urine UA NEGATIVE (NEGATIVE); Ketones Urine NEGATIVE (NEGATIVE); Leukocyte Esterase Urine TRACE (NEGATIVE); Nitrite Urine POSITIVE (NEGATIVE); Protein Urine NEGATIVE (NEG/TRACE); Specific Gravity Urine 1.015 (1.005-1.025); Urobilinogen Urine 0.2 EU/dL (0.2-1.0); pH Urine 6.5 (5.0-9.0)
== END 2024-08-08 16:05 | disposition home or self-care (01) ==
LOC: LAB 16:06
PROVIDERS: PCP Nurse Practitioner Family; Visit Provider Nurse Practitioner Family
DX: R82.90 Unspecified abnormal findings in urine (principal)
CPT/HCPCS: 81003; 87086; 87186

== ENCOUNTER 2024-09-03 12:36 | Outpatient (OUT) | payer OTHER, SELFPAY ==
[2024-09-03 12:52] LABS: Bilirubin Urine NEGATIVE (NEGATIVE); Blood Urine NEGATIVE (NEGATIVE); Clarity Urine CLEAR (CLEAR); Color Urine YELLOW (YELLOW); Glucose Urine UA NEGATIVE (NEGATIVE); Ketones Urine NEGATIVE (NEGATIVE); Leukocyte Esterase Urine NEGATIVE (NEGATIVE); Nitrite Urine NEGATIVE (NEGATIVE); Protein Urine NEGATIVE (NEG/TRACE); Urobilinogen Urine 0.2 EU/dL (0.2-1.0); pH Urine 7.5 (5.0-9.0)
[2024-09-03 13:18] LABS: Bacteria Urine SMALL #/HPF (NONE SEEN); Mucus Urine MODERATE (NONE SEEN)
[2024-09-03 13:19] LABS: RBC Urine 0-2 #/HPF (0-2); WBC Urine 0-2 #/HPF (NONE SEEN)
[2024-09-03 13:20] LABS: Amorphous Sediment Urine MODERATE; Cast Seen? NONE SEEN #/LPF (NONE SEEN); Crystals Seen? None Seen #/HPF (None Seen); Squamous Epithelial Cell Urine MODERATE #/LPF (NONE/RARE); Urine Culture Indicated ALREADY ORDERED
== END 2024-09-03 12:37 | disposition home or self-care (01) ==
LOC: LAB 12:37
PROVIDERS: PCP Nurse Practitioner Family; Visit Provider Nurse Practitioner Family
DX: N39.0 Urinary tract infection, site not specified (principal)
CPT/HCPCS: 81001; 87086

== ENCOUNTER 2024-10-03 20:13 | Outpatient (REF) | payer OTHER, SELFPAY ==
--- OUTSIDE RECORDS SUMMARY | 2024-10-03 20:28 | XMS_ITS | CCD ---
Author Organization [facility] Inform ion Partnership [facility] Care Team Providers Care Data Officer Name Role Phone DELANO QUINTANILLA Unavailable Unavailable PEPE MACHUCA Unavailable Unavailable José Miguel Beltran Unavailable Armand De Paz Unavailable José Miguel Fuentes Unavailable Suresh HERNANDEZ Attending Unavailable Hugo Mendez MD Primary Care Provider Sharron POWER GENERATION EQUIPMENT REPAIRER, Flower S Unavailable [phone] FLOWER MCDERMOTT Consulting Unavailable SHARRON, FLOWER Primary Care Unavailable SHARRON, FLOWER Attending Unavailable SHARRON, FLOWER Admitting Unavailable SHARRON, FLOWER Consulting Unavailable SHARRON, FLOWER Primary Care Unavailable SHARRON, FLOWER Attending Unavailable SHARRON, FLOWER Admitting Unavailable EVERARDO ., DR WASHINGTON Consulting Unavailable SHARRON, FLOWER Primary Care Unavailable EVERARDO ., DR WASHINGTON Attending Unavailable EVERARDO ., DR WASHINGTON Admitting Unavailable ZIEBER, DR [...] Consulting Unavailable SHARRON, FLOWER Primary Care Unavailable EVERARDO ., DR WASHINGTON Attending Unavailable EVERARDO ., DR WASHINGTON Admitting Unavailable EVERARDO ., DR WASHINGTON Consulting Unavailable [place], DR DANIS Harris Consulting Unavailable SHARRON, FLOWER Primary Care Unavailable SHARRON, FLOWER Attending Unavailable SHARRON, FLOWER Admitting Unavailable SHARRON, FLOWER Consulting Unavailable SHARRON, FLOWER Primary Care Unavailable SHARRON, FLOWER Attending Unavailable SHARRON, FLOWER Admitting Unavailable EVERARDO ., DR WASHINGTON Consulting Unavailable SHARRON, FLOWER Primary Care Unavailable EVERARDO ., DR WASHINGTON Attending Unavailable EVERARDO ., DR WASHINGTON Admitting Unavailable SHARRON, FLOWER [...] Primary Care Provider UnavailSAAD Tineo Attending Provider [phone] Hugo Mendez MD Primary Care Provider [phone] Hugo Mendez MD Unavailable Hugo Mendez MD Primary Care Provider Flower Hahn Admitting Unavailable Flower Hahn Attending Unavailable NON STAFF Primary Care Unavailable Sukumar Hill Admitting Unavailab le Sukumar Hill Attending Unavailab le NON STAFF Primary Care Unavailable Unavailable Primary Care Provider UnavailTANG Tyson Attending Unavailable TANG MCGEE Attending Unavailable HUGO MENDEZ Primary Care Unavailable RAKESH THOMPSON Referring Unavailable POPE, ANGELIC L Attending Unavailable GODFRAY, RAKESH Referring Unavailable HOY, HUGO M Primary Care Unavailable HOY, HUGO M Primary Care Unavailable GODFRAY, RAKESH Referring Unavailable GODFRAY, RAKESH Referring Unavailable HOY, HUGO M Primary Care Unavailable HOY, HUGO M Primary Care Unavailable DAKHIL, NOMA Referring Unavailable HOY, HUGO M Primary Care Unavailable GODFRAY, RAKESH Attending Unavailable DAKHIL, NOMA Referring Unavailable HOY, HUGO M Primary Care Unavailable DAKHIL, NOMA Referring Unavailable HOY, HUGO M Primary Care Unavailable HOY, HUGO M Primary Care Unavailable DAKHIL, NOMA Referring Unavailable AGUSTINA, OG Attending Unavailable HOY, HUGO M Primary Care Unavailable GODFRAY, RAKESH Attending Unavailable DAKHIL, NOMA Attending Unavailable HOY, HUGO M Primary Care Unavailable HOY, HUGO M Referring Unavailable HOY, HUGO M Primary Care Unavailable GODFRAY, RAKESH Attending Unavailable GODFRAY, RAKESH Referring Unavailable HOY, HUGO M Primary Care Unavailable HOY, HUGO M Primary Care Unavailable GODFRAY, RAKESH Referring Unavailable Allergies Allergy Classification Reported Allergen(s) Allergy Type Date of Onset Reaction(s) Facility (19 sources) Morphine; Translations: [morphine] Drug Allergy 07-22-20 23 Vomiting [facility] Repository (6 sources) Orphenadrine; Translations: [Norflex] Drug Allergy heart race [facility] Repository (7 sources) Sulfamethoxazole / Trimethoprim Drug Allergy 10-29-20 16 itching [facility] Other (5 sources) tiZANidine Drug Allergy 02-15-20 24 no appetite and paranoia [facility] (3 sources) Levoquin Propensity to adverse reactions joint swelling [facility] Other (2 sources) Azithromycin; Translations: [Zithromax] Drug Allergy 11-24-19 18 [facility] Rep[facility] (2 sources) levoFLOXacin; Translations: [Levaquin] Drug Allergy [facility] (2 sources) Sulfamethoxazole / Trimethoprim; Translations: [Bactrim] Drug Allergy 11-24-19 18 [facility] (3 sources) tiZANidine; Translations: [Zanaflex] Drug Allergy 03-22-20 18 [facility] (20 sources) Glucocorticoid preparation; Translations: [CORTICOSTEROIDS (GLUCOCORTICOIDS)] Drug Intolerance 03-10-20 23 Unknown [facility] (20 sources) Non-steroidal anti-inflammatory agent; Translations: [NSAIDS (NON-STEROIDAL ANTI-INFLAMMATORY DRUG)] Drug Intolerance 03-10-20 23 Unknown [facility] (1 source) Corticosteroids Drug allergy (disorder) 11-02-19 23 [facility] Repository (2 sources) Morphine Drug Allergy [facility] (1 source) NSAIDs Drug allergy (disorder) 11-02-19 23 [facility] (7 sources) Azithromycin; Translations: [azithromycin] Drug Allergy 10-29-20 16 Nausea [facility] (7 sources) levoFLOXacin; Translations: [levofloxacin] Drug Allergy 11-11-19 17 Swelling [facility] (7 sources) Orphenadrine; Translations: [orphenadrine] Drug Allergy 10-29-20 16 Palpitations, heart race [facility] (3 sources) Sulfamethoxazole; Translations: [sulfamethoxazole] Drug Allergy 02-15-20 24 Agitated, itching [facility] (3 sources) Sulfonamides (Antibiotic); Translations: [Sulfa (Sulfonamide Antibiotics)] Allergy to substance 02-15-20 24 Agitated [facility] (3 sources) Trimethoprim; Translations: [trimethoprim] Drug Allergy 02-15-20 24 Agitated, itching [facility] (1 source) Morphine Drug Allergy 02-15-20 24 [facility] (1 source) tiZANidine Drug Allergy 02-15-20 24 [facility] Repository (4 sources) levoFLOXacin Drug Allergy 10-29-20 16 [facility] (4 sources) Non-steroidal anti-inflammatory agent Drug Intolerance 03-10-20 23 Other [facility] (4 sources) tiZANidine Drug Allergy 03-16-20 18 [facility] (4 sources) Wound Dressing Adhesive Drug Intolerance 11-11-19 17 Itching [facility] Medications Current Medications Medication Drug Class(es) Dates Sig (Normalized) Sig (Original) amoxicillin 875 mg / clavulanate 125 mg oral tablet (1 source) Penicillin-class Antibacterial Start: 09-26-2022 take 1 tablet by mouth every twelve hours Amoxicillin-Pot Clavulanate 875-125 MG 1 tablet Orally every 12 hrs for 10 day(s) Sep, Active ARIPiprazole 15 mg oral tablet (1 source) Atypical Antipsychotic Start: 08-12-2024 take 1 tablet by mouth once ARIPiprazole (ABILIFY) 15 mg tablet Take 1 tablet by mouth every afternoon. 08/12/2024 Active 24 hr buPROPion hydrochloride 150 mg extended release oral tablet (20 sources) Aminoketone Start: 04-23-2023 take 1 tablet by mouth every twenty-four hours in the morning buPROPion XL (Wellbutrin XL) 150 MG 24 hr tablet Take 150 mg by mouth in the morning. 04/23/2023 Active Start: 01-03-2018 End: 09-06-2024 buPROPion XL (WELLBUTRIN XL) 300 mg 24 hr tablet Every morning 01/03/2018 09/06/2024 Discontinued take 1 tablet by donna th once daily buPROPion XL (WELLBUTRIN XL) 150 mg 24 hr tablet Take 150 mg by mouth once daily. Active buPROPion HCl ER (XL) Active Wellbutrin Activ e Comment on above: Every morning cephalexin 500 mg oral capsule (3 sources) Cephalosporin Antibacterial Start: End: take 1 capsule by mouth once daily cephalexin (Keflex) 500 MG capsule Indications: UTI symptoms Take 1 capsule (500 mg) by mouth Daily 42 capsule 09/28/2024 11/09/2024 Active clonazePAM 1 mg oral tablet (20 sources) Benzodiazepine Start: clonazePAM (KlonoPIN) 1 MG tablet 1 mg 2 (two) times a day as needed 02/15/2024 Active Start: 01-19-2024 End: 09-06-2024 take 2 tablets by mouth every twelve hours clonazePAM (KLONOPIN) 0.5 mg tablet Take 1 mg by mouth every 12 hours. 01/19/2024 09/06/2024 Discontinued (Dosage adjustment) Start: 01-19-2024 take 1 tablet by donna [...] End: 04-26-2024 take 1 capsule by mouth in the morning esomeprazole (NexIUM) [address] capsule Take 40 mg by mouth in the morning. 05/02/2023 Active Comment on above: 1 capsule. Estroven - (3 sources) Start: 11-07-2020 Estroven - as directed Orally Nov, Active hyoscyamine sulfate 0.125 mg oral tablet (20 sources) Start: 04-26-2024 End: 09-05-2024 take 1 tablet by mouth twice daily in the morning, then take 9 tablets by mouth in the evening hyoscyamine (LEVSIN) 0.125 mg tablet TAKE 1 TABLET BY MOUTH TWO TIMES A DAY AT 6 AM AND 9 PM 60 tablet 1 09/05/2024 Active Start: 02-15-2024 Hyoscyamine Carver lfate Active MG PO February 15, 2024 12:00am Start: 12-29-2022 take 1 tablet by [facility] every six hours as needed hyoscyamine (Levsin) 0.125 MG SL tablet Take 0.125 mg by mouth every 6 (six) hours if needed. 12/29/2022 Active iv contrast (will be provided with radiology [...] tablet by mouth every afternoon. 11/24/2023 Active take 1 tablet by donna th every twenty-four hours in the morning oxybutynin XL (Ditropan-XL) 15 MG 24 hr tablet Take 15 mg by mouth in the morning. Active Oxybutynin Chlor felicia ER Active Comment on above: Take 1 tablet by donna th every afternoon. sertraline 100 mg oral tablet (20 sources) Serotonin Reuptake Inhibitor Start: 01-03-2018 take 1 tablet by mouth once daily in the morning sertraline (Zoloft) 100 MG tablet Indications: Mood changes TAKE 1 TABLET BY MOUTH EVERY DAY IN THE MORNING 30 tablet 5 11/30/2023 Active Sertraline HCl N ot-Taking Comment on [...] Drug Class(es) Dates Sig (Normalized) Sig (Original) cetirizine hydrochloride 10 mg oral tablet (20 sources) Histamine-1 Receptor Antagonist End: 09-28-2024 take 1 tablet by mouth in the morning cetirizine (ZyrTEC) 10 MG tablet Take 10 mg by mouth in the morning. 09/28/2024 Discontinued End: 09-06-2024 Cetirizine 10 mg cap 024 Discontinued (Course of therapy completed) diazePAM 2 mg oral tablet (2 sources) Benzodiazepine Start: 01-03-2018 End: 01-05-2018 take 1 tablet by mouth three times daily Diazepam (Valium) 2 mg tablet Discontinued 2 MG PO Three times daily 6 2 January 03, 2018 1:00am January 05, 2018 1:03am famotidine 20 mg oral tablet (20 sources) Histamine-2 Receptor Antagonist End: 09-28-2024 take 1 tablet by mouth in the morning famotidine (Pepcid) 20 MG tablet Take 20 mg by mouth in the morning. 09/28/2024 Discontinued End: 09-06-2024 famotidine (PEPCID) 10 mg ta blet 09/06/2024 Discontinued (Course of therapy completed) Pepcid Active fluconazole 150 mg oral tablet (2 sources) Azole Antifungal Start: 09-28-2024 End: 09-28-2024 fluconazole (Diflucan) 150 MG tablet Indications: Yeast infection Take 1 tablet (150 mg) by mouth 1 (one) time for 1 dose Repeat in 7 days if symptoms persist. 2 tablet 1 09/28/2024 09/28/2024 fluticasone propionate 0.05 mg/actuat metered dose nasal spray (5 sources) Corticosteroid Start: 01-03-2018 End: 02-15-2024 Fluticasone Propionate (Flonase Allergy Relief) 50 mcg/actuation [place],Suspension Discontinued 2 SPRAY INTRANASAL Daily January 03, 2018 1:00am February 15, 2024 4:00pm Fluticasone Prop ionate Not-Taking hydrOXYzine hydrochloride 25 mg oral tablet (6 sources) Antihistamine End: 09-28-2024 take 2 tablets by mouth once hydrOXYzine HCl (Atarax) 25 MG tablet Take 50 mg by mouth 1 (one) time. 09/28/2024 Discontinued hydrOXYzine HCl Active Ketorolac (3 sources) Nonsteroidal Anti-inflammatory Drug, Cyclooxygenase Inhibitor Ketorolac Trome thamine Not-Taking Ketorolac Tromet hamine Active Methocarbamol (3 sources) Muscle Relaxant Robaxin Not-Taki ng methylPREDNISolone 4 mg oral tablet (3 sources) Corticosteroid Start: 021 Medrol (Wiliam) 4 MG as directed Orally for 6 days Nov, Not-Taking montelukast 10 mg oral tablet (3 sources) Leukotriene Receptor Antagonist End: take 1 tablet by mouth at bedtime montelukast (Singulair) 10 MG tablet Take 10 mg by mouth at bedtime. 09/28/2024 Discontinued mupirocin 0.02 mg/mg topical ointment (3 sources) [...] sources) Partial Cholinergic Nicotinic Agonist Start: End: Varenicline Discontinued MG PO February 15, 2024 12:00am February 15, 2024 4:01pm Problems Active Problems Problem Classification Problem Date Documented Da te Episodic/Chronic Blindness and vision defects (1 source) Eye / vision finding; Translations: [Unspecified visual disturbance] 09-06-2024 Episodic Deficiency and other anemia (1 source) Anemia, [...] Translations: [UNSPECIFIED URINARY INCONTINENCE] Onset: 04-16-2022 Chronic Genitourinary symptoms and ill-defined conditions (2 sources) Urinary symptoms ; Translations: [Unspecified symptoms and signs involving the genitourinary system] 09-28-2024 Episodic Headache; including migraine (4 sources) Headache; including migraine; Translations: [HEADACHE UNSPECIFIED] Onset: 03-08-2023 Other aftercare (1 source) Other prison (current) drug therapy; Translations: [OTH [facility] CURRENT DRUG THERAPY] Onset: 03-10-2023 Episodic Other [...] [Pain in right hand] 02-19-2024 Episodic Other connective tissue disease (1 source) Recurrent falls ; Translations: [Repeated falls] 09-06-2024 Episodic Other endocrine disorders (5 sources) Other hypoglycemia; Translations: [OTHER HYPOGLYCEMIA] Onset: 01-31-2023 Chronic Other gastrointestinal disorders (2 sources) Irritable bowel syndrome; Translations: [Mixed irritable bowel syndrome] 02-29-2024 Chronic Other injuries and conditions due to external causes (2 sources) Muscle strain; Translations: [Other injury of unspecified body region, initial encounter] 10-14-2023 Episodic Other nervous system disorders (1 source) Chronic pain; Translations: [Other chronic pain] 09-06-2024 Chronic Other nervous system disorders (4 sources) Other chronic pain; Translations: [Chronic midline low back pain without sciatica] Onset: 02-19-2024 Chronic Other nervous system disorders (4 sources) Paresthesia of upper limb; Translations: [Anesthesia of skin] Episodic Other nervous system disorders (2 sources) Paresthesia; Translations: [Paresthesia of skin] Episodic Other nervous system disorders (2 sources) Paresthesia of hand ; Translations: [Anesthesia of skin] 02-19-2024 Episodic Other non-traumatic joint disorders (2 sources) Pain in right hip joint; Translations: [Pain in right hip] 03-11-2024 Episodic Other screening for suspected conditions (not [...] Spondylosis; intervertebral disc disorders; other back problems (14 sources) Other spondylosis with radiculopathy, lumbar region; Translations: [Other intervertebral disc degeneration, lumbosacral region] Onset: 03-01-2018 Chronic Sprains and strains (3 sources) Strain of [...] Problem Date Documented Date Episodic/Chronic Abdominal pain (7 sources) Chronic abdominal pain; Translations: [Unspecified abdominal pain] Onset: 03-21-2024 02-29-2024 Episodic Immunizations and screening for infectious disease (1 source) Encounter for screening for human papillomavirus (HPV); Translations: [ENC SCREENING HUMAN PAPILLOMAVIRUS] Onset: 04-24-2022 Episodic Inflammatory diseases of female pelvic organs (4 sources) Bacterial vaginosis; Translations: [Acute vaginitis] Onset: 06-16-2024 06-16-2024 Episodic Mycoses (6 sources) Mycosis; Translations: [Candidiasis, unspecified] Onset: 06-16-2024 06-16-2024 Episodic Nausea and vomiting (4 sources) Nausea; [...] Pain in right hand; Translations: [Pain in right hand] Onset: 02-15-2024 Episodic Other connective tissue disease [...] in both hands] Onset: 03-18-2024 Episodic Other non-traumatic joint disorders (1 source) Pain in right hip; Translations: [Pain in right hip] Onset: 05-27-2024 Episodic Residual codes; unclassified (1 source) Family [...] NEOPLSM OTH GENIT ORGN] Onset: 11-09-2022 Episodic Spondylosis; intervertebral disc disorders; other back problems (20 sources) Cervical radiculopathy; Translations: [Radiculopathy, cervical region] Onset: 04-04-2022 Episodic Unclassified (1 source) COUGH, UNSPECIFIED; Translations: [COUGH, UNSPECIFIED] Onset: 05-22-2022 Unclassified (1 source) CONTACT W/AND (SUSP) EXPOS COVID-19; Translations: [CONTACT W/AND (SUSP) EXPOS COVID-19] Onset: 04-09-2022 Unclassified (1 source) LOW BACK PAIN, UNSPECIFIED; Translations: [LOW BACK PAIN, UNSPECIFIED] Onset: 04-04-2022 Results Test Name Value Interpretation Reference Range Facility Urinalysis macro (dipstick) panel (U)on 09-28-2024 Bilirubin, UA Negative Negative - 4(70) +++ mg/dL [facility] Blood, UA Positive Negative - 50 Raj/mcL [facility] Comment on above: trace-intact Clarity, UA Clear [facility] Color, UA Yellow [facility] Glucose, UA Negative Negative - 1999(110) ++++ mg/dL [facility] Interpretation and review of laboratory results Abnormal [facility] Ketones, UA Negative Negative - 160(16) ++++ mg/dL [facility] Leukocytes, UA Negative Negative - 500+++ Alex/mcL [facility] Nitrite, UA Negative Negative - Positive [facility] pH, UA 6.5 5 - 9 [facility] [employer] Protein, UA Negative Negative - 1999(20) ++++ mg/dL [facility] Spec Grav, UA 1.03 1 - 1.03 [facility] Urobilinogen, UA 1.0 0.2 - 12 mg/dL [facility] CNOV Office Visit (SPMIND) AURORA MONTAGUE ([id number]) 1975 F Date Time Provider Department 09/06/24 11:15 AM RAKESH THOMPSON SPMIND During your visit today, we recorded the following information about you: Weight Height 97.5 kg 1.702 m Rakesh Thompson PA-C 09/07/2024 9:35 AM Signed [facility] Low back pain - chronic follow up Exam SUBJECTIVE HISTORY OF PRESENT ILLNESS: Aurora Montague is a 49 year old female who presents with a chief complaint of low back and leg pain. Here for PT follow up. #1. Low back Change in pain with pain radiating to both legs the past 2 weeks. Using ice at night to help. Pain is located in midline low back. Radiates to bilateral (R>L) lateral hips to lateral thighs. Intermittent pain in bilateral toes or arches of feet. Intermittent tingling in toes. Feels like rubber band around the left thigh. Occasionally waking up with severe pain, cramp throughout the right leg. Right ankle gave out about one week ago. Difficulty going up stairs due to generalized weak sensation, burning in anterior thighs. Reports about 10 falls since last office visit. Trips over nothing or foot slips off the step. Urinary leakage with coughing/sneezing. Otherwise normal sensation and able to use the restroom. Pain ratio: 25% low back vs 75% leg pain #2. Neck Burning pain, stiffness in posterior neck. Mostly constant. No recent radiation. No radiating arm pain. No recent headaches. Sharp, nerve pain in bilateral hands and all the fingers. Comes and goes. Intermittent numbness/tingling in left 2nd and 4th fingers and right 2nd - 4th fingers. States she feels numbness over 90% of her body. Dropping things with both hands since her neck surgery 2016. No longer feeling the left arm weakness. Feeling weakness right shoulder/upper arm for 2-3 weeks when trying to pulling blanket onto herself. Recently had first session EMDR with therapist for PTSD. Vision changes - blurred vision, double vision. Astigmatism. Nicotine use: none Interventions: Medications: Wellbutrin (150mg qAM), Zoloft (100mg qAM), Klonopin (1mg BID) -Previously tried: [place], robaxin, diclofenac 75mg BID ,medrol dose pack (11/27/22), prednisone (01/26/23), naproxen - GI bleed/ulcer -tylenol - no relief -topicals - no relief -stopped NSAIDs due to GI issues Physical therapy: x4 visits 05/27/24-07/27/24 for low back pain, right hip pain -PT x1 visit for neck pain 03/18/24 -completed 4 weeks December 2022 for neck - caused more pain -PT for low back was 2021 at [facility] Previous spine injection history: none - states nervous of injections Previous spine surgery: -11/18/2016 : Anterior cervical C4/5, C5/6, C6/7 discectomy, C5, C6 corpectomy and fusion with iliac strut graft and Invizia plate with Dr. Harvey at [facility] Office visit 03/11/24: Here today for evaluation of her low [...] ordered as well as EGD and colonoscopy. Office visit 02/19/24: Pain is currently 2/10. [...] started around June 2022. Urinary leakage with coughing/sneezing (more content not included)... Normal [facility] CNTHERAPYon 07-27-2024 CNTHERAPY OT/PT/Speech Visit (LOPTRM) AURORA MONTAGUE ([id number]) 1975 F Date Time Provider Department 07/27/24 3:45 PM NELLA DUPONT FAMILIA Date Time Provider Department Center 07/27/2024 3:45 PM [id number], NELLA Tyson Reason for Visit: PT Discharge [752] Primary Visit Diagnosis:Chronic midline low back pain without sciatica [M54.50, G89.29] Allergies As of Date: 07/27/2024 Noted Allergy Reaction MORPHINE 07/22/2023 11 - Vomiting NSAIDS (NON-STEROIDAL ANTI-INFLAM*03/10/20 23 16 - Unknown Comments: Stomach upset , GI Issues, bleeding STEROIDS (CORTICOSTEROIDS (GLUCOC*03/10/2023 16 - Unknown Comments: PT states Bleeding Date Reviewed: 04/26/2024 Reviewed by: Maribell Becerra, RN - Fully Assessed Prescriptions as of 07/27/2024 - sucralfate (CARAFATE) 1 gram tablet TAKE [...] Take 1 tablet by mouth every afternoon. Normal [facility] CNTHERAPYon 07-08-2024 CNTHERAPY OT/PT/Speech Visit (LOPTRM) EDDISAVANNAHAURORA ([id number]) 1975 F Date Time Provider Department 07/08/24 1:45 PM ANGELIC POPE Date Time Provider Department Center 07/08/2024 1:45 PM [id number] [id number] Reason for Visit: Physical Therapy [503] Primary [...] Take 1 tablet by mouth every afternoon. Hardboard Factory Worker: Addendum Therapy (PT/OT/Speech/Resp) ID: [id number] 07/08/2024 2:36 PM Author: ANGELIC POPE Signed by ANGELIC POPE PT on 07/08/2024 at 2:36 PM * * * This document replaces document [id number] * * * Document text: Program_ID:[id number] Access Code: [email or web address] URL: [email or web address]/ Date: 07-08-2024 Prepared By: Nella Dupont Program [...] 3 sets - 10 reps -------- Normal [facility] THERAPY NTon 07-08-2024 THERAPY NT HNO ID: [id number] Author: ANGELIC POPE PT Service: ? Author Type: Physical Therapist Type: Therapy (PT/OT/Speech/Resp) Filed: 07/08/2024 14:36 Note Text: Program_ID:[id number] Access Code: [email or web address] URL: [email or web address]/ Date: 07-08-2024 Prepared By: Nella Dupont Program [...] - 3 sets - 10 reps Normal [facility] CNTHERAPYon 06-17-2024 CNTHERAPY OT/PT/Speech Visit (LOPTRM) AURORA MONTAGUE ([id number]) 1975 F Date Time Provider Department 06/17/24 3:30 PM NELLA DUPONT Date Time Provider Department Center 06/17/2024 3:30 PM [id number] DUPONT Reason for Visit: Physical Therapy [503] [...] Take 1 tablet by mouth every afternoon. 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 (PT/OT/Speech/Resp) ID: [id number] 06/17/2024 3:58 PM Author: NELLA DUPONT Signed by NELLA DUPONT PT on 06/17/2024 at 3:58 PM Document text: Program_ID:[id number] Access Code: [email or web address] URL: [email or web address]/ Date: 06-17-2024 Prepared By: Nella Dupont Program [...] 1 sets - 10 reps -------- Normal [facility] THERAPY NTon 06-17-2024 THERAPY NT HNO ID: [id number] Author: NELLA DUPONT PT Service: Physical Therapy Author Type: Physical Therapist Type: Therapy (PT/OT/Speech/Resp) Filed: 06/17/2024 15:58 Note Text: Program_ID:[id number] Access Code: [email or web address] URL: [email or web address]/ Date: 06-17-2024 Prepared By: Nella Dupont Program [...] - 1 sets - 10 reps Normal [facility] [id number] 05-30-2024 [id number] HNO ID: [id number] Author: NELLA DUPONT PT Service: ? Author Type: Physical Therapist Type: [id number] Filed: 05/30/2024 11:05 Note Text: [facility] Physical Therapy Plan of Care Certification Patient Name: Aurora Montague : 1975 CCF #: [id number] Date: 05/27/2024 To: Rakesh Thompson PA-C From Therapist: Nella Dupont PT RE: Patient Certification/ Recertification Your review, approval and electronic signature are required in order to comply with Payor: [facility] MEDICAID / Plan: [employer] MEDICAID / [...] of Care: created on 05/27/24 through 07/26/24 [place] in home exercise program. Patient will decrease [...] Planned: 4 Planned Treatment Interventions: Neuromuscular re-education (19400), Therapeutic exercise (22371), Manual therapy (08621), Therapeutic activities (53329), Self-correction management (51460), Gait Training (92605), Patient/Family/Careg iver Education PLAN FOR NEXT VISIT: Review HEP, LE strength Patient demonstrates good understanding of plan of care and treatment. The above goals and plan of care were discussed and agreed upon by patient/family. For further details regarding this patient refer to the Physical Therapy electronically documented visit dated 05/27/2024. Provider Attestation I have reviewed the treatment plan for Aurora Montague, CC# [id number] for the period of 05/27/24 -- 07/26/24, established on 05/27/2024. Signature certifies the need for therapy services. Normal [facility] CNTHERAPYon 05-27-2024 CNTHERAPY OT/PT/Speech Visit (LOPTRM) EDDISAVANNAHAURORA ([id number]) 1975 F Date Time Provider Department 05/27/24 2:00 PM NELLA DUPONT Date Time Provider Department Center 05/27/2024 2:00 PM [id number] DUPONT Reason for Visit: PT Eval [747] Patient [...] Take 1 tablet by mouth every afternoon. 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 (PT/OT/Speech/Resp) ID: [id number] 05/27/2024 2:34 PM Author: NELLA DUPONT Signed by NELLA DUPONT PT on 05/27/2024 at 2:34 PM Document text: Program_ID:[id number] Access Code: [email or web address] URL: [email or web address]/ Date: 05-27-2024 Prepared By: Nella Dupont Program [...] - sets - 2 reps -------- Normal [facility] THERAPY NTon 05-27-2024 THERAPY NT O ID: [id number] Author: NELLA DUPONT, PT Service: Physical Therapy Author Type: Physical Therapist Type: Therapy (PT/OT/Speech/Resp) Filed: 05/27/2024 14:34 Note Text: Program_ID:[id number] Access Code: [email or web address] URL: [email or web address]/ Date: 05-27-2024 Prepared By: Nella Dupont Program [...] weekly - sets - 2 reps Normal [facility] SURGICAL PATHOLOGYOrdered By : Dalila Logan on 04-28-2024 Case Report Surgical Pathology Report Case: [id number] Authorizing Provider: Ashley Shah MD Collected: 04/26/2024 11:12 AM Ordering Location: Ambulatory Surgery Received: 04/26/2024 11:32 PM Pathologist: Dalila Logan MD Specimens: A) - Small Bowel, Duodenum, Biopsy, r/o celiac B) - Stomach, Antrum, Biopsy, r/o hpylori C) - Stomach, Biopsy, body r/o hpylori D) - Colon, Biopsy, random colon r/o microscopic colitis E) - Colon, Sigmoid, Polyp, polyp x1 [facility] Work Phone: Diagnosis Comment o5mjoLQeQCMzxHVmTWIv NAfsgtTvVYEvgWUnC4Bt qpfdRDmbAH4iYF7gxGbo mLKtoHMwLIEpYxSyh5pu w012zKNtk6dsNSHHuznk pKe8nLzwX75qe3N5Nyyh T45eyADrMPG4DMEmBTCy nPUcQCQpOOA4GOCexNTq F9ujCHVkIG5haidqBYae DBvuMHLsgZP3FSQuxBDz S8FqMAEuLHieJRRbijw1 WzImVo1yoCUuwRqtDHmx YXJkXHBsYWluXGZzMjBc qJDmRZ56rYZryFloSNG2 PEKmiKK3VGdzYBWZNRRi D1Ojr48dQNidnyYrOXvj wQmsXAPpu17xaHBsqLWR LiBccGFyfQ== [facility] Work Phone: FINAL DIAGNOSIS i0nisAYeYHNaiUCoDOMb LKzikkUdXZBrhDSvF2Gc rmkrLJygIF3rUE7rnGgx nYVheIYdRMQgElUdl5ju p846sSKns6xpVTWTwupq tPc2iKevE19ta9K0Sscw T11qiYKhKXC6INPbGDFr cCNtNJQmFQB6EEYbcKZs E5frQNRtZC0rsjtdVPib MKvpCWZmzCI4DQAemBWo W0PdTHTwFZjvXUBoimt6 VuYmXu0ltKCieNldFHpz YXJkXHBsYWluXGZzMjBc cGFyIEEuICBTbWFsbCBp fwGjg2TetcYiDFS3j9Yi gmYrHYLnuY8ma0arvKWa WF0DxP1yJI4dpCXzjRVd j7Gvj9l7cIEmvjOdvKrr nHKxT3DswKYoGRHdw6hl O6skTJYeup7eiZBabSC6 XHBhciAtTmVnYXRpdmUg Bc0qVVE7l8Bagin7zCCm TI2dUHKqdKtmAuKnjCGr GMGmDDThojtvHQOhPe8t ZVO2q45lL7zbJOOdkRA3 hMcuQlfpuQT4RXZgwxKn R5QubJDeYbAkrsBeUPbt cRTzx0KgVRsrzUehwlPp B9TfjqYlX2DdcCRhmIX2 cNrojIUdUR3QqiNbrXL8 e51xfeAcg3raF2yzTCC9 eIXvjyGeUS5zPXqlfEmm e9UlE8KocaXwrojqxybp rTFcSKVgxcpiIHMqZj6x FNB5l62wB4xdEYXlTMgg ETDlr6WuqGvfQKElNFpf x9MevCFoe4c6kuCfEoPl bYTay9Hme8g6cZUlmvIm cMxgjNZiR3FbzVUbIMPv r1zsV7dfRYHqzi4byXXa mHS3YSZgkpOnPv0guYml tO1oc2EosG8ot2ipWoPp jdqdYW9wFYMyOjVABXol J36gKTD6HZBhy6ErAF4o q81yERpcZGUiwALjHZPu WHAIx9mrjvzhvjHiMQ1s DZOgxO8sd0cxkNTaJN0F k6exqxkdDA60E53qRMB6 aMMaSU9lbGUak1OzdiMr f8xcMBIdrpDcLsIuFFSp ruXrAc2jSRWfoLc2dRDf DHykWS10wL3sCECtqKNb qP4onSTzoCA7hN9iHESy ZCBkeXNwbGFzaWFccGFy NBZblxJOOfIgM65ak85n TJVaW12wcIIyQXEkeOcq CTF9w144PMDzhwIxQ09w p64oAmHalCCtl1Orh4n9 cTZfHYcoey3azCXgJ71l vLyaDMZgUY9fN9D8zYAz IGZvciBkeXNwbGFzaWEg NBDiAAIcf35cJZ13FBcd YXJ9 [facility] Work Phone: Gross Description c3wxxMIxYTKruMZxFCKp SKwfbfAtHINczMUdW5Gm rnlfMBfuMB8dEZ4rpJel iJXwvBPoASXwLvWlk1ik w567tLTfr4fcTELWcjsr gUa0pGxsJ97lm2C6Zamd Q49moECxWWF7MCYzWZJc yONoGLEqHCH2BJRggHYc H3udJCRpIH7sshzxTZxu DLjoJCOnoPW2OQZbvUIg T9HjYJHoEOloMWCbvfn9 HyNiLb0chFDfbOlfGZkp GcupqNcyn5QhoBSfCGgu IDUxMDAwIFxcbmggXFx0 WTCjIIyzpELxED8qvCsf ArhfbQucw9TebLMvWFcg MGFtDHHtKKrmKJVvS6NV QFVrLmA7FWH5CEQaPRp8 EAd7DA9TXaOjIGG1NWDa TciyJxNvJYq4NJrzZL4P PQAyPGV6FdS1MaB3AZO5 RWX3VXxgxKMzJIzut0Sr DxDzCSOlKTglkpK0PUUp idHygXjmbF6hJtVjJzYU UsDGhRKaaCJEb2wdwMzp MWNjNJTxjL3wOYAnu2Kx eVxwYXJccGFyZFxzYjMw SVFbpPEXv5BiGXkdUFNi WACzyAEPl8YqOHqdmBOy vwxcsmWvLQSkG4HefnHj DRkhNFJhnj5pyZpyCEGk YIB8p09smLiyD8ZgDW2e BTNyksucl69wbXQ3yXNa dWUgYWdncmVnYXRpbmcg tK9vRK73JOtiVM6lWYll WD3cOWChGtSQt5GkgTf5 FZA7Yp6aqNLqVBLkxiSe tsMgG5Xar5E0dHGvi1ca bCrgg5QwdPOkEC4fiXYs k7kfRCFsjFVoJJT6RMtm aWQgNTEwMDIgXFxkYiBP MxDcJhX3BgV2ARl6HdBw DKu5GHqvZ9PATFBsUMI7 VuT9OeYmDvA4QOk7TRQF Rg1yGIMrFFbrCaK6HvKw GFD0PTKfZIf8FMIfRJcu qbVeSQxhIcukYSdjL03q cGFyZFxzYjEwNVxlcGlj ARQvFYQ4FBFsTlEnUz8s Q2LnuJOriJmvLB60feJs GWCWrW2jk2jugNWwBAEd tkNmm4QzHNwpaBlwXYVq CcIsi8LmFMnhnHurAUWf NbOfsWoxnS8jYeBtEPNX TVUweHCvCCXworFqw4Kf YWxpbiBhcmUgdHdvIHBp YGSfecTyGjE0WR9qVRGw BcFgfFsbw0OpUHJgB9Xn C9V2kP9vFNSvSONtTZG9 UDTgLiB9KVWyNuYucR2o EK36ZEddwTPqaZZluUC1 MZWhgB9zu40fVDDpd6Qj xZXdRjkkQEXqE1DvA2Us oqO5ADDsfcckSkuyrBps g5GbsGBfECgwMMUaSZVq IHmuZIZvW4JHIYGrCbV1 JFN5NLUgQDy9RRs8BZ3T ZwPtZXJ3CKYlCiogQROu WTx5NFniXY4SSGGgOKP1 DtU0JrSuOLI8HSA4AXwk cFJyXPzqx7XwUrZzCPZc VQdvjpS4BRZmumQcq6Vp VPJhOREnL0gsJqYwKZnk xoOnLEKzUUZ7m27nF5vw LPAdi1WhkAyxJFDcrALe ZBteXdAkSHWvvREFb7Yb VOenQUBdITTcoDKAc5Fh MFxwbGFpblxmczIwIFJl O7KtthDkLPsbVULgqt4g hBwaQWToDQX0v84zkYvv I2BpGZ1qPQFevhxqb76w dKA4zDVqaTPaIMlfpcHb OEBvhlvegI8eKE88CCee CO6xXRwjAB4zBNOeUwUV p4XgkUl0OAZ3Xj9efTXd NVGvaoKlppXsH5Jui2I8 pHLrf4qpbViuc8DngHDo AS4ohHIpx9aiMKBjqWHu DXL3THzfzNTvFJApJNVy FAbzXfUYLyMqVoS5HqQ5 XDs1YvScSDc8KBnrB0XG UCYqZKY9WlU9JWZ8WjD3 HZa8JROLKt2aQQQzMEqi QzL9FmQoPVW4RSJyIOc3 IDIgXFxzcyAzIFxcZmwg UPhkU47jaWQoKIkuWsDk RNiibBggUYWzBLJ4JQHf XhSuZM4xE65nj23iZMJf j7AafWbkNWThbAOcUEkx DkJkDGFizMUZo5YhRLau MHScZEVnlTGRf2AeLXgl rICdyjrgjkGuIFOfB6Ep dqStVZvbNYRgfh0ckXpb MJCiJLOlfLh4bTSlHNRn rHBxAUGpu4AiqAYmTNUo a6I1EHNfw7E4WKWxH2qu WJecqVefThC2wwPnDkCy hUPuIfTttTPxEaHnR24s SQJkgIFwtHsvp3QjvBh7 lLUsISteQK8bPVYpWQYc PIP5OG91HKAhxPQoYUN6 NB9dzMeoIAV9VMduTZUz H1RfO5IsIOccNOW5BMPa ZpQrBZOsOT9DVlLlDBJ2 UfvpTRX7LtU5SVw4BPST PbBjVlWxGSDqEgj6CHbv ACt0IHi8WYlICsOiUuB2 BtLxTzCjCBH2MGPjRGLp XHQgMiBcXHNzIDMgXFxm fVZfKS4kzOfnLWOqUQGh NEJ7QGCitPQEp2JrGRQm XyMpGdAPLrAUk0ofpihy I9atfK8ySYslHG2usQDq xQVwWFEvwcTnc0PlYJnj hEykENNkEiKhxTbfoD2v ZnMyMCBSZWNlaXZlZCBp odTfq7SxWQwizxWdluWz bfQsjVgfW2Cdc6ItePIe BBNlf5V6XMDux4K1OJFa UPChfYZfqjzmBR1sGObu XB1pFEnxPP7zIHUvIbNX o3SilBe7ZTB0Ea5ifYOj SKMaksHgrrAwN6Nry9X3 dGUuIFxwYXJccGFyZFxw VVIdM8ByIiJcNESxFlhs MjAyNCAxOjExIEFNXHBh rsPPrc2sqjDdoBZnyA9y kMbjwqGmYHZzg1GpMVUs TJKtJ9bayyGpBQ7fTJAu fK5nQzkjAWPwEHOJePTa gUZcHVQeMxlxW0qjprVx WQ2oXQBSWIL0UBE6VXlp QHZjv5ZxDRvdiUrbNWYi LlG3OKJhyRFtNQQ6UA2y fQqdCPSmQ6NjZ3MridV4 XHBhcn0= [facility] Work Phone: Performing Lab f3ycvIOdOULtbRLfXrCc VZWtQSTqd4bfHEMkbAHg ZzEwMzNcZnRuYmpcdWMx RSEkCdZwh1jxw333hZRg p7xpYEUgBxR5hJJrTMUl qNDdB409DBWpVYaop8zz s2PaKANhjBXwm8N0EKPE ffrotEt5iYrtT31zv2T2 KrsdD2vsTHQyTIAiN3Rs LD7gBZKoBio8CAT0GAF7 DBDdYPXaP0ShGT2xZPCq vKFbLOn6d3ngmCffDNZi MKK8v6kmQBjhtuChBQ6r ww2rtJd6a6lqiePcSUQx LIWksYYYQPKkA7FvtSuf Ph8jvTn5oJdaNeqvUMW1 Ckq0DK2lni43kur1eOxf CNNylvdrIfR6XMipJLWc ibewDLr9NYezRPQnfWO2 CILgvVJoF8WvNJhfXN3f xmq4GCP9VYtxQGNiVsS2 NDBcaGVhZGVyeTcyMFxm f027JXB6ZxDnKW3iW4Ew l5Q6vF2euVCkERLkpGCx EbSxMAUwxt0dhKLsTZdw n3HdNLI0atR4zSWynIYe GYArYU12Mqmes4UcZjrx y5NcI02xgCS2IBfru5gl SD1xRvL1usGrSAylh9bb sQ8qOoD7NMxdUU1rJV9p MSPqvW5hgtujZEJdFkBy izcrYJLikIzuhaXlXg0k lCeqSWW0RShwK9yifW4k BhW0DXrgS0sxbD0iGPl2 MRzubOY4CHYnpR5kQR2c yxkhk7mkCElzLKysODKz pzE0spHfIUAwaQMjN5Lm zI8fCXFqGH5blculq4ga BMN7TOcsDWCiOCK0HgSi BVPaz4Bulqf3NvGpy6Nq oRZhZYzwT26zk357PTIg vhVnY9ojnIDndimzfKEe dzyqTYgptpU8YHOlKBOx YWluXGYxXGZzMjBcbGFu ZzEwMzNcaGljaFxmMVxk WkTkIDUnOOqsY4ndWfCg LpWxYIRApZVxns5bwBva MUdanWOztRAjfDH8vX5o LBUwroUhnw6mGOGiyVTB vVH5MEtqgoOtP7mreusd QGA1ETYqTZT2I2huKVBL dmUsIENsZXZlbGFuZCBP MES1YHM2XUSdKGXTLBSi OJZ6EHE2JYGwXHWauYIc XHBhclxwYXJkXHBsYWlu OFOqMGCjVsKkwLlstL9i LfQsHnMcQEhyTC1hERMi X9fycJWeYWTeTQWcH1oo SiYxsV3buVciNLwvDwVx ZnMyMFxsdHJjaCBMYWJv ekR4r0G5UPwgsBQsdytz MVxmczIwXGxhbmcxMDMz TNcfZ0mbDxFiQMCejDyx AEkfz3KgTQLxJQAeHrKu DTonMBI5t7Z0CWmhlIWl rrAQAwWWGT1sfKHapgxi NY7DTrwmqBEdpkccKIed czIyXGxhbmcxMDMzXGhp I5ukPcPnXMZtlUmjKTjs a2MhTAWsPLYaAeYnqDXs fQ== [facility] Work Phone: [facility] Work Phone: Mari[facility] AURORA MONTAGUE ([id number]) 1975 F Date Time Provider Department 04/27/24 ASHLEY SHAH During your visit today, we recorded the following information about you: Dottie Kirby RN 04/27/2024 11:50 AM Signed Dottie Kirby RN 04/27/2024 11:50 AM Signed Call to [facility], spoke to Kenia. Resubmitted additional [...] Fully Assessed Reason for Visit: Insurance Authorization [[id number]] Cmt: ELAINE nexium Prescriptions as of 05/03/2024 [...] Encounter Status:Closed by DOTTIE KIRBY on 05/03/24 [facility] ANES POSTPROC EVALon 024 ANES POSTPROC EVAL HNO ID: [id number] Author: OG FARRELL APRN.PHOTOGRAPHER PORTRAIT Service: ? Author Type: Nurse Barrelhead Inspector Type: Anesthesia Postprocedure Evaluation Filed: 04/26/2024 11:39 Note Text: POST ANESTHESIA EVALUATION NOTE : 1975 Procedure Summary Date: 04/26/24 Room / Location: Ambulatory Surgery Anesthesia Start: 1107 Anesthesia Stop: 1132 Procedures: EGD DIAGNOSTIC COLONOSCOPY DIAGNOSTIC Diagnosis: Gastroesophageal reflux disease with esophagitis without hemorrhage Nausea PUD (peptic ulcer disease) Rectal bleeding Irritable bowel syndrome with both constipation and diarrhea (Dyspepsia, Unspecified) Scheduled Providers: Ashley Shah MD; Dominique Miller RN; Nancy Rodarte Tech; Og Farrell APRN.PHOTOGRAPHER PORTRAIT Responsible Provider: Og Farrell APRN.PHOTOGRAPHER PORTRAIT Anesthesia Type: MAC ASA Status: 3 Anesthesia [...] Anesthesia Observations No Documentation SIGNATURE: Og Farrell APRN.PHOTOGRAPHER PORTRAIT PATIENT NAME: Aurora Montague DATE: April 26, 2024 TIME: 11:36 AM CSN: [id number] Normal [facility] ANES PRE-OPon 04-26-2024 ANES PRE-OP HNO ID: [id number] Author: OG FARRELL APRN.PHOTOGRAPHER PORTRAIT Service: ? Author Type: Nurse Barrelhead Inspector Type: Anesthesia Preprocedure Evaluation Filed: 04/26/2024 11:05 Note Text: ANESTHESIOLOGY DAY OF SURGERY NOTE : 1975 Procedure Information Date/Time: 04/26/24 1045 Scheduled providers: Ashley Shah MD; Dominique Miller RN; Nancy Rodarte Tech; Og Farrell APRN.PHOTOGRAPHER PORTRAIT Procedures: EGD DIAGNOSTIC COLONOSCOPY DIAGNOSTIC Location: Ambulatory [...] and consent discussed: yes. Patient / Responsible Democrat agrees to proceed: yes Patient / Surrogate [...] 48 hours of Surgery/Procedure. SIGNATURE: Og Farrell APRN.PHOTOGRAPHER PORTRAIT PATIENT NAME: Aurora Montague DATE: April 26, 2024 TIME: 10:58 AM CSN: [id number] Normal [facility] Colonoscopyon 04-26-2024 Colonoscopy [facility] Gastroenterology Gastrointestinal Endoscopy Patient Name: Aurora Montague Procedure Date: 04/26/2024 11:20 AM Date of : 1975 Admit Type: Outpatient Age: 49 Room: [facility] Gender: Female Note Status: Finalized Attending MD: Ashley Shah MD, [id number] Procedure: Colonoscopy Indications: Lower abdominal pain, Rectal [...] verified by the physician, the nurse, the care coordination manager and the emissions testing and repair technician in the procedure room. Mental Status [...] bowel preparation was evaluated using the BBPS (Milligan Bowel Preparation Scale) with scores of: Right [...] NuLev (hyoscya (more content not included)... Normal [facility] EGD Study observation Narrat maximo 04-26-2024 [facility] Gastroenterology Gastrointestinal Endoscopy Patient Name: Aurora Montague Procedure Date: 04/26/2024 11:07 AM Date of : 1975 Admit Type: Outpatient Age: 49 Room: [place] [address] Gender: Female Note Status: Finalized Attending MD: Ashley Shah MD, [id number] Procedure: Upper GI endoscopy Indications: Dyspepsia, Heartburn, [...] verified by the physician, the nurse, the care coordination manager and the emissions testing and repair technician in the procedure room. Mental Status [...] Normal hypopharynx. (more content not included)... PROVATION [facility] Radiology Study observation (narrative) [facility] Flexible sigmoidoscopy study on 04-26-2024 [facility] Gastroenterology Gastrointestinal Endoscopy Patient Name: Aurora Montague Procedure Date: 04/26/2024 11:20 AM Date of : 1975 Admit Type: Outpatient Age: 49 Room: [facility] 2 Gender: Female Note Status: Finalized Attending MD: Ashley Shah MD, [id number] Procedure: Colonoscopy Indications: Lower abdominal pain, Rectal [...] verified by the physician, the nurse, the care coordination manager and the emissions testing and repair technician in the procedure room. Mental Status [...] bowel preparation was evaluated using the BBPS (Milligan Bowel Preparation Scale) with scores of: Right [...] MAC anesthesia (more content not included)... PROVATION [facility] Radiology Study observation (narrative) [facility] HISTORY PHYSICALon HISTORY PHYSICAL HNO ID: [id number] Author: ASHLEY SHAH MD Service: Gastroenterology Author [...] April 26, 2024 TIME: 11:01 AM Normal [facility] NURSING PROGon 04-26-2024 NURSING PROG HNO ID: [id number] Author: MARIBELL BECERRA RN Service: ? Author [...] Becerra RN In Department: AMBULATORY SURGERY Normal [facility] NURSING PROG HNO ID: [id number] Author: TRACIE WILLAMS RN Service: ? Author [...] Willams RN In Department: AMBULATORY SURGERY Normal [facility] SURGICAL PATHOLOGYon 024 CASE REPORT Normal [facility] Comment on above: Order Comment: Jay zaldivar Type: TISSUE SPECIMEN Ordering Facility: [facility] Address: [address] [place] [address] Result Comment: Surg ical Pathology Report Case: [id number] Authorizing Provider: Ashley Shah MD Collected: 04/26/2024 11:12 AM Ordering Location: Ambulatory Surgery Received: 04/26/2024 11:32 PM Pathologist: Dalila Logan MD Specimens: A) - Small Bowel, Duodenum, Biopsy, r/o celiac B) - Stomach, Antrum, Biopsy, r/o hpylori C) - Stomach, Biopsy, body r/o hpylori D) - Colon, Biopsy, random colon r/o microscopic colitis E) - Colon, Sigmoid, Polyp, polyp x1 Performed By: #### S #### [facility] CLIA [id number] [address] [place] [address] [place] DIAGNOSIS COMMENT Normal [facility] Comment on above: Order Comment: Jay zaldivar Type: TISSUE SPECIMEN Ordering Facility: [facility] Address: [address] [place] [address] Result Comment: [facility] iple step-level H&E sections were examined on part E. Performed By: #### S #### [facility] CLIA [id number] [address] [place] [address] [place] FINAL DIAGNOSIS Normal [facility] Comment on above: Order Comment: Jay zaldivar Type: TISSUE SPECIMEN Ordering Facility: [facility] Address: [address] [place] [address] Result Comment: A. S mall intestine, duodenum, [...] for dysplasia (see comment) Performed By: #### S #### [facility] CLIA [id number] [address] [place] [address] [place] FINAL PERFORMING LAB Normal [facility] Comment on above: Order Comment: Speci men Type: TISSUE SPECIMEN Ordering Facility: [facility] Address: [address] [place] [address] Result Comment: Diag nostic interpretation performed at [facility], [address] [place] [address] CLIA# [id number] [place] Operator: Gian Martinez M.D. Performed By: #### S #### [facility] CLIA [id number] [address] [place] [address] [place] GROSS DESCRIPTION Normal [facility] Comment on above: Order Comment: Speci men Type: TISSUE SPECIMEN Ordering Facility: [facility] Address: [address] [place] [address] Result Comment: A. S mall Bowel, Duodenum, [...] 0.1 cm. Totally submitted in one cassette. SS April 27, 2024 1:11 AM Gross examination performed at [facility], [address] [place] [address] Performed By: #### S #### [facility] CLIA [id number] [address] [place] [address] [id number] [id number] [facility] Upper GI endoscopyon 024 Upper GI endoscopy [facility] Gastroenterology Gastrointestinal Endoscopy Patient Name: Aurora Montague Procedure Date: 04/26/2024 11:07 AM Date of : 1975 Admit Type: Outpatient Age: 49 Room: [place] [address] Gender: Female Note Status: Finalized Attending MD: Ashley Shah MD, [id number] Procedure: Upper GI endoscopy Indications: Dyspepsia, Heartburn, [...] verified by the physician, the nurse, the care coordination manager and the emissions testing and repair technician in the procedure room. Mental Status [...] colonoscopy today. Procedure Code(s): --- Professional --- 64801, Esophagogastroduoden oscopy, flexible, transoral; with biopsy, single or multiple Diagnosis Code(s): --- Professional --- K21.00, Gastro-esophageal reflux disease with esophagitis, without bleeding K29.70, Gastritis, unspecified, without bleeding K29.80, Duodenitis without bleeding R10.13, Epigastric pain R12, Heartburn R11.2, Nausea with vomiting, unspecified CPT copyright 2020 [employer]. All rights reserved. The codes documented in this report are prelimina (more content not included)... Normal [facility] CT ABD/PEL W IVCONon 024 CT ABD/PEL W IVCON * * *Final Report* * * DATE OF EXAM: Mar 21 2024 8:39AM [facility] 0530 - CT ABD/PEL W IVCON [...] any questions regarding this interpretation, please call [phone]. If you are unable to reach us at the number above, please feel free to contact [facility] eRadiology at [phone]. [id number] CN Normal [facility] CT Abdomen and Pelvis W cont [...] any questions regarding this interpretation, please call [phone]. If you are unable to reach us at the number above, please feel free to contact [facility] at [phone]. DIVISION OF RADIOLOGY * * *Final Report* * * DATE OF EXAM: Mar 21 2024 8:39AM LN 0530 - CT ABD/PEL W IVCON / [...] No additional findings. DIVISION OF RADIOLOGY Provider, [facility] [place] - 03/21/2024 * * *Final Report* * * DATE OF EXAM: Mar 21 2024 8:39AM [facility] 0530 - CT ABD/PEL W IVCON [...] any questions regarding this interpretation, please call [phone]. If you are unable to reach us at the number above, please feel free to contact [facility] at [phone]. [facility] Radiology Study observation (narrative) [facility] CT Abdomen and Pelvis W cont rast IVOrdered By: [facility] Provider on 03-21-2024 [facility] [id number] 03-18-2024 [id number] HNO ID: [id number] Author: DUNIA ARANDA PT, DPT Service: ? Author Type: Physical Therapist Type: [id number] Filed: 03/18/2024 15:15 Note Text: [facility] Physical Therapy Plan of Care Certification Patient Name: Aurora Montague : 1975 [facility] #: [id number] Date: 03/18/2024 To: Rakesh Thompson PA-C From Therapist: Dunia Aranda PT, DPT RE: Patient Certification/ Recertification Your review, approval and electronic signature are required in order to comply with Payor: [facility] [employer] / Plan: [facility] MEDICA[employer] / Product Type: Medicaid / [...] mechanics through functional tasks of daily living. [place] in home exercise program. Patient will decrease pain to 1/10 with functional activities to allow patient to improve tolerance through ADLs. Restore pain free cervical ROM to WNL to allow for improved tolerance through ADLs. Patient Goals: to reduce pain Planned Interventions, Frequency, and Duration: Current Frequency: 1x/week Duration: 8 weeks Total Number of Visits Planned: 8 Planned Treatment Interventions: Therapeutic exercise (36469), Neuromuscular re-education (66591), Manual therapy (54422), Therapeutic activities (04225), Self-correction management (88984), Patient/Family/Careg iver Education, Body Mechanics Training PLAN [...] have reviewed the treatment plan for Aurora Montague, CC# [id number] for the period of 03/18/24 -- 05/17/24, established on 03/18/2024. Signature certifies the need for therapy services. Normal [facility] CNTHERAPYon 03-18-2024 CNTHERAPY OT/PT/Speech Visit (LOPTRM) AUR[place]A MONT[place]UE ([id number]) 1975 F Date Time Provider Department 03/18/24 2:00 PM DUNIA ARANDA Date Time Provider Department Center 03/18/2024 2:00 PM [id number] ARANDA Reason for Visit: PT Eval [747] [...] Take 1 tablet by mouth every afternoon. 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 (PT/OT/Speech/Resp) ID: [id number] 03/18/2024 2:40 PM Author: DUNIA ARANDA Signed by DUNIA ARANDA PT, DPT on 03/18/2024 at 2:40 PM Document text: Program_ID:[id number] Access Code: [email or web address] URL: [email or web address]/ Date: 03-18-2024 Prepared By: Dunia Aranda Program [...] 2 sets - 15 reps -------- Normal [facility] THERAPY NTon 03-18-2024 THERAPY NT HNO ID: [id number] Author: DUNIA ARANDA, PT, DPT Service: ? Author Type: Physical Therapist Type: Therapy (PT/OT/Speech/Resp) Filed: 03/18/2024 14:40 Note Text: Program_ID:[id number] Access Code: [email or web address] URL: [email or web address]/ Date: 03-18-2024 Prepared By: Dunia Aranda Program [...] - 2 sets - 15 reps Normal [facility] CNOVon 03-11-2024 CNOV Office Visit (SPMIND) AUR[place]A MONTAGUE ([id number]) 1975 F Date Time Provider Department 03/11/24 11:15 AM RAKESH THOMPSON SPMIND During your [...] (100mg qAM), Klonopin (1mg BID) -Previously tried: [place], robaxin, diclofenac 75mg BID ,medrol dose pack [...] and [employer] plate with Dr. Harvey at [facility] Office visit 02/19/24: Pain is currently 2/10. [...] C6 corpectomy and fusion on 11/18/16 at [facility]. Prior to surgery she had severe pain [...] in b (more content not included)... Normal [facility] CBC W Auto Differential pane l (Bld)on 02-29-2024 Basophils (Bld) [#/Vol] 0.03 10*3/uL [facility] Basophils/100 WBC (Bld) 0.4 % [facility] Differential cell count method Nom (Bld) Auto [facility] Eosinophils (Bld) [#/Vol] 0.06 10*3/uL [facility] Eosinophils/100 WBC (Bld) 0.8 % [facility] Erythrocyte distribution width (RBC) [Ratio] 12.9 % 11.5 - 15.0 % [facility] Hematocrit (Bld) [Volume fraction] 42.9 % 36.0 - 46.0 % [facility] Hemoglobin (Bld) [Mass/Vol] 14.6 g/dL 11.5 - 15.5 g/dL [facility] Immature granulocytes (Bld) [#/Vol] [facility] Immature granulocytes/100 WBC (Bld) 0.1 % [facility] Lymphocytes (Bld) [#/Vol] 2.44 10*3/uL [facility] Lymphocytes/100 WBC (Bld) 34.0 % [facility] MCH (RBC) [Entitic mass] 32.4 pg 26.0 - 34.0 pg [facility] MCHC (RBC) [Mass/Vol] 34.0 g/dL 30.5 - 36.0 g/dL [facility] MCV (RBC) [Entitic vol] 95.1 fL 80.0 - 100.0 fL [facility] Monocytes (Bld) [#/Vol] 0.50 10*3/uL [facility] Monocytes/100 WBC (Bld) 7.0 % [facility] Neutrophils (Bld) [#/Vol] 4.13 10*3/uL [facility] Neutrophils/100 WBC (Bld) 57.7 % [facility] Nucleated RBC (Bld) [#/Vol] NINF [facility] Nucleated RBC/100 WBC (Bld) [Ratio] 0.0 % /100 WBC [facility] Platelet mean volume (Bld) [Entitic vol] 10.8 fL 9.0 - 12.7 fL [facility] Platelets (Bld) [#/Vol] 253 10*3/uL [facility] RBC (Bld) [#/Vol] 4.51 10*6/uL 3.90 - 5.2 0 m/uL [facility] WBC (Bld) [#/Vol] 7.17 10*3/uL [facility] Basophils (Bld) [#/Vol] 0.03 10*3/uL Normal <0.11 [facility] Comment on above: Order Comment: Speci men Type: BLOOD SPECIMENOrdering Facility: [facility] Address: [address] [place] [address] Performed By: #### 5 7021-8 ####[facility] LABCLIA [id number] [place] [address] [place] Basophils/100 WBC (Bld) 0.4 % Normal [facility] Comment on above: Order Comment: Speci men Type: BLOOD SPECIMENOrdering Facility: [facility] Address: [address] [place] [address] Performed By: #### 5 7021-8 ####[facility] LABCLIA [id number] [place] [address] [place] Differential cell count method Nom (Bld) Auto Normal [facility] Comment on above: Order Comment: Speci men Type: BLOOD SPECIMENOrdering Facility: [facility] Address: [address] [place] [address] Performed By: #### 5 7021-8 ####[facility] LABCLIA [id number] [place] [address] [place] Eosinophils (Bld) [#/Vol] 0.06 10*3/uL Normal <0.46 [facility] Comment on above: Order Comment: Speci men Type: BLOOD SPECIMENOrdering Facility: [facility] Address: [address] [place] [address] Performed By: #### 5 7021-8 ####[facility] LABIA [id number] [place] [address] [place] Eosinophils/100 WBC (Bld) 0.8 % Normal [facility] Comment on above: Order Comment: Speci men Type: BLOOD SPECIMENOrdering Facility: [facility] Address: [address] [place] [address] Performed By: #### 5 7021-8 ####[facility] LABIA [id number] [place] [address] [place] Erythrocyte distribution width (RBC) [Ratio] 12.9 % Normal 11.5-15.0 [facility] Comment on above: Order Comment: Speci men Type: BLOOD SPECIMENOrdering Facility: [facility] Address: [address] [place] [address] Performed By: #### 5 7021-8 ####[facility] LABIA [id number] [place] [address] [place] Hematocrit (Bld) [Volume fraction] 42.9 % Normal 36.0-46.0 [facility] Comment on above: Order Comment: Speci men Type: BLOOD SPECIMENOrdering Facility: [facility] Address: [address] [place] [address] Performed By: #### 5 7021-8 ####[facility] LABIA [id number] [place] [address] [place] Hemoglobin (Bld) [Mass/Vol] 14.6 g/dL Normal 11.5-15.5 [facility] Comment on above: Order Comment: Speci men Type: BLOOD SPECIMENOrdering Facility: [facility] Address: [address] [place] [address] Performed By: #### 5 7021-8 ####[facility] LABCLIA [id number] [place] [address] [place] Immature granulocytes (Bld) [#/Vol] 10*3/uL Normal <0.10 [facility] Comment on above: Order Comment: Speci men Type: BLOOD SPECIMENOrdering Facility: [facility] Address: [address] [place] [address] Performed By: #### 5 7021-8 ####[facility] LABCLIA [id number] [place] [address] [place] Immature granulocytes/100 WBC (Bld) 0.1 % Normal [facility] Comment on above: Order Comment: Speci men Type: BLOOD SPECIMENOrdering Facility: [facility] Address: [address] [place] [address] Performed By: #### 5 7021-8 ####[facility] LABCLIA [id number] [place] [address] [place] Lymphocytes (Bld) [#/Vol] 2.44 10*3/uL Normal 1.00-4.00 [facility] Comment on above: Order Comment: Speci men Type: BLOOD SPECIMENOrdering Facility: [facility] Address: [address] [place] [address] Performed By: #### 5 7021-8 ####[facility] LABCLIA [id number] [place] [address] [place] Lymphocytes/100 WBC (Bld) 34.0 % Normal [facility] Comment on above: Order Comment: Speci men Type: BLOOD SPECIMENOrdering Facility: [facility] Address: [address] [place] [address] Performed By: #### 5 7021-8 ####[facility] LABCLIA [id number] [place] [address] [place] MCH (RBC) [Entitic mass] 32.4 pg Normal 26.0-34.0 [facility] Comment on above: Order Comment: Speci men Type: BLOOD SPECIMENOrdering Facility: [facility] Address: [address] [place] [address] Performed By: #### 5 7021-8 ####[facility] LABIA [id number] [place] [address] [place] MCHC (RBC) [Mass/Vol] 34.0 g/dL Normal 30.5-36.0 [facility] Comment on above: Order Comment: Speci men Type: BLOOD SPECIMENOrdering Facility: [facility] Address: [address] [place] [address] Performed By: #### 5 7021-8 ####[facility] [id number] [place] [address] [place] MCV (RBC) [Entitic vol] 95.1 fL Normal 80.0-100.0 [facility] Comment on above: Order Comment: Speci men Type: BLOOD SPECIMENOrdering Facility: [facility] Address: [address] [place] [address] Performed By: #### 5 7021-8 ####[facility] [id number] [place] [address] [place] Monocytes (Bld) [#/Vol] 0.50 10*3/uL Normal <0.87 [facility] Comment on above: Order Comment: Speci men Type: BLOOD SPECIMENOrdering Facility: [facility] Address: [address] [place] [address] Performed By: #### 5 7021-8 ####[facility] LABIA [id number] [place] [address] [place] Monocytes/100 WBC (Bld) 7.0 % Normal [facility] Comment on above: Order Comment: Speci men Type: BLOOD SPECIMENOrdering Facility: [facility] Address: [address] [place] [address] Performed By: #### 5 7021-8 ####[facility] LABCLIA [id number] [place] [address] [place] Neutrophils (Bld) [#/Vol] 4.13 10*3/uL Normal 1.45-7.50 [facility] Comment on above: Order Comment: Speci men Type: BLOOD SPECIMENOrdering Facility: [facility] Address: [address] [place] [address] Performed By: #### 5 7021-8 ####[facility] LABCLIA [id number] [place] [address] [place] Neutrophils/100 WBC (Bld) 57.7 % Normal [facility] Comment on above: Order Comment: Speci men Type: BLOOD SPECIMENOrdering Facility: [facility] Address: [address] [place] [address] Performed By: #### 5 7021-8 ####[facility] LABCLIA [id number] [place] [address] [place] Nucleated RBC (Bld) [#/Vol] 10*3/uL Normal <0.01 [facility] Comment on above: Order Comment: Speci men Type: BLOOD SPECIMENOrdering Facility: [facility] Address: [address] [place] [address] Performed By: #### 5 7021-8 ####[facility] LABCLIA [id number] [place] [address] [place] Nucleated RBC/100 WBC (Bld) [Ratio] 0.0 /100 WBC Normal [facility] Comment on above: Order Comment: Speci men Type: BLOOD SPECIMENOrdering Facility: [facility] Address: [address] [place] [address] Performed By: #### 5 7021-8 ####[facility] LABCLIA [id number] [place] [address] [place] Platelet mean volume (Bld) [Entitic vol] 10.8 fL Normal 9.0-12.7 [facility] Comment on above: Order Comment: Speci men Type: BLOOD SPECIMENOrdering Facility: [facility] Address: [address] [place] [address] Performed By: #### 5 7021-8 ####[facility] LABCLIA [id number] [place] [address] [place] Platelets (Bld) [#/Vol] 253 10*3/uL Normal 150-400 [facility] Comment on above: Order Comment: Speci men Type: BLOOD SPECIMENOrdering Facility: [facility] Address: [address] [place] [address] Performed By: #### 5 7021-8 ####[facility] LABIA [id number] [place] [address] [place] RBC (Bld) [#/Vol] 4.51 10*6/uL Normal 3.90-5.20 [facility] Comment on above: Order Comment: Speci men Type: BLOOD SPECIMENOrdering Facility: [facility] Address: [address] [place] [address] Performed By: #### 5 7021-8 ####[facility] LABIA [id number] [place] [address] [place] WBC (Bld) [#/Vol] 7.17 10*3/uL Normal 3.70-11.00 [facility] Comment on above: Order Comment: Speci men Type: BLOOD SPECIMENOrdering Facility: [facility] Address: [address] [place] [address] Performed By: #### 5 7021-8 ####[facility] LABIA [id number] [place] [address] [place] CNOVon 02-29-2024 CNOV Office Visit ([place]) [place] ([id number]) 1975 F Date Time Provider Department 02/29/24 [...] 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) Has a bowel movement every 2 days [...] LAB Creatinine 0.50 - 0.90 mg/dL 0.63 [facility] Bun/Cre Ratio 9 - 20 NOT REPORTED [facility] STV LAB Calcium 8.6 - 10.4 mg/dL 8.3 Low [facility] Sodium 135 - 144 mmol/L 138 [facility] Potassium 3.7 - 5.3 mmol/L 3.8 [facility] Chloride 98 - 107 mmol/L 102 [facility] CO2 20 - 31 mmol/L 22 [facility] Anion Gap 9 - 17 mmol/L 14 [facility] LAB Alkaline Phosphatase 35 - 104 U/L 61 PN LAB ALT 5 - 33 U/L 9 [facility] AST <32 U/L 11 [facility] LAB Total Bilirubin 0.3 - 1.2 mg/dL 0.33 [facility] Total Protein 6.4 - 8.3 g/dL 6.2 Low [facility] LAB Albumin 3.5 - 5.2 g/dL 3.7 [facility] Albumin/Globulin Ratio 1.0 - 2.5 1.5 [facility] LAB GFR Non- >60 mL/min >60 [facility] LAB GFR >60 mL/min >60 PN LAB GFR Comment CBC Component Ref Range [...] reactive t (more content not included)... Normal [facility] Comprehensive metabolic 2000 panelon 02-29-2024 Albumin [Mass/Vol] 4.5 g/dL 3.9 - 4.9 g/dL [facility] ALP [Catalytic activity/Vol] 75 U/L 34 - 123 U/L [facility] ALT [Catalytic activity/Vol] 17 U/L 7 - 38 U/L [facility] Anion gap [Moles/Vol] 11 mmol/L 9 - 18 mmol/L [facility] AST [Catalytic activity/Vol] 17 U/L 13 - 35 U/L [facility] Bilirubin [Mass/Vol] 0.5 mg/dL 0.2 - 1 .3 mg/dL [facility] Calcium [Mass/Vol] 9.3 mg/dL 8.5 - 10. 2 mg/dL [facility] Chloride [Moles/Vol] 104 mmol/L 97 - 10 5 mmol/L [facility] CO2 [Moles/Vol] 24 mmol/L 22 - 30 mmol/L [facility] Creatinine [Mass/Vol] 1.03 mg/dL High 0.58 - 0.96 mg/dL [facility] GFR/1.73 sq M.predicted among non-blacks MDRD (S/P/Bld) [Vol rate/Area] 68 mL/min/{1.73_m2} - PINF [facility] Comment on above: Estimated Glomerular Filtration Rate [...] [Mass/Vol] 91 mg/dL 74 - 99 mg/dL [facility] Comment on above: The [place] Diab[employer] Association (ADA) provides guidance for [...] Standards of Medical Care in Diabetes 2016, [place] [employer]. Diabetes Care. 2016.39(Suppl 1). Interpretation and review of laboratory results Abnormal [facility] Potassium [Moles/Vol] 4.3 mmol/L 3.7 - 5.1 mmol/L [facility] Protein [Mass/Vol] 7.2 g/dL 6.3 - 8.0 g/dL [facility] Sodium [Moles/Vol] 139 mmol/L 136 - 144 mmol/L [facility] Urea nitrogen [Mass/Vol] 11 mg/dL 7 - 21 mg/dL [facility] Albumin [Mass/Vol] 4.5 g/dL Normal 3.9-4.9 [facility] Comment on above: Order Comment: Speci men Type: BLOOD SPECIMENOrdering Facility: [facility] Address: [address] [place] [address] Performed By: #### 2 4323-8 ####[facility] LABCLIA [id number] [place] [address] [place] ALP [Catalytic activity/Vol] 75 U/L Normal 34-123 [facility] Comment on above: Order Comment: Speci men Type: BLOOD SPECIMENOrdering Facility: [facility] Address: [address] [place] [address] Performed By: #### 2 4323-8 ####[facility] LABCLIA [id number] [place] [address] [place] ALT [Catalytic activity/Vol] 17 U/L Normal 7-38 [facility] Comment on above: Order Comment: Speci men Type: BLOOD SPECIMENOrdering Facility: [facility] Address: [address] [place] [address] Performed By: #### 2 4323-8 ####[facility] LABCLIA [id number] [place] [address] [place] Anion gap [Moles/Vol] 11 mmol/L Normal 9-18 [facility] Comment on above: Order Comment: Speci men Type: BLOOD SPECIMENOrdering Facility: [facility] Address: [address] [place] [address] Performed By: #### 2 4323-8 ####[facility] LABCLIA [id number] [place] [address] [place] AST [Catalytic activity/Vol] 17 U/L Normal 13-35 [facility] Comment on above: Order Comment: Speci men Type: BLOOD SPECIMENOrdering Facility: [facility] Address: [address] [place] [address] Performed By: #### 2 4323-8 ####[facility] LABCLIA [id number] [place] [address] [place] Bilirubin [Mass/Vol] 0.5 mg/dL Normal 0.2-1.3 [facility] Comment on above: Order Comment: Speci men Type: BLOOD SPECIMENOrdering Facility: [facility] Address: [address] [place] [address] [place] [address] Performed By: #### 2 4323-8 ####[facility] LABCLIA [id number] [address] [address] [place] Calcium [Mass/Vol] 9.3 mg/dL Normal 8.5-10.2 [facility] Comment on above: Order Comment: Speci men Type: BLOOD SPECIMENOrdering Facility: [facility] Address: [address] [place], [place] [address] Performed By: #### 2 4323-8 ####[facility] LABCLIA [id number] [place] [address] [place] Chloride [Moles/Vol] 104 mmol/L Normal 97-105 [facility] Comment on above: Order Comment: Speci men Type: BLOOD SPECIMENOrdering Facility: [facility] Address: [address] [place] [address] Performed By: #### 2 4323-8 ####[facility] LABCLIA [id number] [place] [address] [place] CO2 [Moles/Vol] 24 mmol/L Normal 22-30 [facility] Comment on above: Order Comment: Speci men Type: BLOOD SPECIMENOrdering Facility: [facility] Address: [address] [place], [place] [address] Performed By: #### 2 4323-8 ####[facility] LABCLIA [id number] [place] [id number] [place] Creatinine [Mass/Vol] 1.03 mg/dL High 0.58-0.96 [facility] Comment on above: Order Comment: Speci men Type: BLOOD SPECIMENOrdering Facility: [facility] Address: [address] [place], [place] [address] Performed By: #### 2 4323-8 ####[facility] LABCLIA [id number] [place] [address] [place] Creatinine and Glomerular filtration rate.predicted panel (S/P/Bld) 68 mL/min/1.73m??? Normal >=60 [facility] Comment on above: Order Comment: Jay zaldivar Type: BLOOD SPECIMENOrdering Facility: [facility] Address: [address] [place] [address] Result Comment: Sarah mated Glomerular Filtration Rate [...] accurately reflect actual GFR. Performed By: #### 2 4323-8 ####[facility] LABIA [id number] [place] [address] [place] Glucose [Mass/Vol] 91 mg/dL Normal 74-99 [facility] Comment on above: Order Comment: Jay zaldivar Type: BLOOD SPECIMENOrdering Facility: [facility] Address: [address] [place] [address] Result Comment: The [place] Diabetes Association (ADA) provides guidance for cutoff [...] Standards of Medical Care in Diabetes 2016, [place] [employer]. Diabetes Care. 2016.39(Suppl 1). Performed By: #### 2 4323-8 ####[facility] LABIA [id number] [place] [address] [place] Potassium [Moles/Vol] 4.3 mmol/L Normal 3.7-5.1 [facility] Comment on above: Order Comment: Speci men Type: BLOOD SPECIMENOrdering Facility: [facility] Address: [address] [place] [address] Performed By: #### 2 4323-8 ####[facility] LABCLIA [id number] [place] [address] [place] Protein [Mass/Vol] 7.2 g/dL Normal 6.3-8.0 [facility] Comment on above: Order Comment: Speci men Type: BLOOD SPECIMENOrdering Facility: [facility] Address: [address] [place] [address] Performed By: #### 2 4323-8 ####[facility] LABCLIA [id number] [place] [address] [place] Sodium [Moles/Vol] 139 mmol/L Normal 136-144 [facility] Comment on above: Order Comment: Speci men Type: BLOOD SPECIMENOrdering Facility: [facility] Address: [address] [place] [address] Performed By: #### 2 4323-8 ####[facility] LABCLIA [id number] [place] [address] [place] Urea nitrogen [Mass/Vol] 11 mg/dL Normal 7-21 [facility] Comment on above: Order Comment: Speci men Type: BLOOD SPECIMENOrdering Facility: [facility] Address: [address] [place] [address] Performed By: #### 2 4323-8 ####[facility] LABCLIA [id number] [place] [address] [place] ENDOMYSIAL ANTIBODY, IGGon 0 02-29-2024 ENDOMYSIAL ANTIBODY, IGG <1:10 Normal <1:10 [facility] Comment on above: Order Comment: Speci men Type: BLOOD SPECIMENOrdering Facility: [facility] Address: [address] [place] [address] Result Comment: INTE RPRETIVE INFORMATION: Endomysial Antibody, IgG The presence of AMBER IgG antibody may be useful in the identification of IgA-deficient patients at risk for celiac disease. Positive results must be confirmed by biopsy of the small intestine to establish a diagnosis of celiac disease. This test was developed and its performance characteristics determined by [employer]. It has not been cleared or approved by the [place] Food and Drug Administration. This test was performed in a CLIA certified laboratory and is intended for clinical purposes. Performed By: [facility] [address] [place] [address] [employer] Operator: Ramy Corbett MD, PhD CLIA Number: [id number] Performed By: #### E NDIGG ####[facility] [id number] [place] [address] Endomysium IgA Titr Ser IFon 02-29-2024 Endomysium IgA IF (S) [Titer] <1:10 Normal <1:10, Test Not Indicated [facility] Comment on above: Order Comment: Speci men Type: BLOOD SPECIMENOrdering Facility: [facility] Address: [address] [place] [address] Performed By: #### 2 7038-9 ####[facility] LABIA [id number] [place] [address] [place] GLIADIN (DEAMIDATED) AB, IGA on 02-29-2024 GLIAD DEAMIDATED IGA QUAL Negative Normal Negative, Test not Indicated [facility] Comment on above: Order Comment: Speci men Type: BLOOD SPECIMENOrdering Facility: [facility] Address: [address] [place] [address] Result Comment: This is used as an aid in diagnosis of celiac disease. Clinical correlation is required. The following results were obtained with an [employer]made [employer]ANT[employer]ite Gliadin IgA MI Gliadin. Gliadin IgA values obtained with different manufacturers' assay methods may not be used interchangeably. The magnitude of the reported IgA levels cannot be correlated to an endpoint titer. Performed By: #### G ARIANA KLEIN ####[facility] LABCLIA [id number] [place] [address] [place] Gliadin peptide IgA Qn (S) 5 Units Normal <20 [facility] Comment on above: Order Comment: Speci men Type: BLOOD SPECIMENOrdering Facility: [facility] Address: [address] [place] [address] Performed By: #### ARIANA ANDREA ####[facility] LABCLIA [id number] [place] [address] [place] GLIADIN (DEAMIDATED) AB, IGG on 02-29-2024 GLIAD DEAMIDATED IGG QUAL Negative Normal Negative, Test not Indicated [facility] Comment on above: Order Comment: Speci men Type: BLOOD SPECIMENOrdering Facility: [facility] Address: [address] [place] [address] Result Comment: This test is used as an aid in diagnosis of celiac disease in IgA-deficient individuals only. Clinical correlation is required. The following results were obtained with an [employer]made [employer]ite Gliadin IgG MI Gliadin. Gliadin IgG values obtained with different manufacturers' assay methods may not be used interchangeably. The magnitude of the reported IgG levels cannot be correlated to an endpoint titer. Performed By: #### ARIANA ANDREA ####[facility] LABCLIA [id number] [place] [address] [place] Gliadin peptide IgG Qn (S) 2 Units Normal <20 [facility] Comment on above: Order Comment: Speci men Type: BLOOD SPECIMENOrdering Facility: [facility] Address: [address] [place] [address] Performed By: #### G ARIANA KLEIN ####[facility] LABIA [id number] [place] [address] [place] tTG IgA Qn (S)on 02-29-2024 TRANSGLUTAMINASE IGA ABS INTERPRETATION Negative Normal Negative [facility] Comment on above: Order Comment: Jose Migueli men Type: BLOOD SPECIMENOrdering Facility: [facility] Address: [address] [place] [address] Result Comment: The following results were obtained with [employer] QUANTA Lite R h-tTG IgA MI.???R h-tTG IgA values obtained with different manufacturers' assay methods may not be used interchangeably. The magnitude of the reported IgA levels cannot be correlated to an endpoint???concentration. This is used as an aid in diagnosis of celiac disease. Clinical correlation is required. Performed By: #### 3 1017-7, 73844-2 ####[facility] LABCLIA [id number] [address] [place] tTG IgA Ser-aCncon 4 tTG IgA Qn (S) <2 Normal <4 [facility] Comment on above: Order Comment: Speci men Type: BLOOD SPECIMENOrdering Facility: [facility] Address: [address] [place] [address] Performed By: #### 3 1017-7, 63063-8 ####[facility] LABIA [id number] [address] tTG IgG Qn (S)on 02-29-2024 TRANSGLUTAMINASE IGG ABS INTERPRETATION Negative Normal Negative [facility] Comment on above: Order Comment: Jay zaldivar Type: BLOOD SPECIMENOrdering Facility: [facility] Address: [address] [place] [address] Result Comment: The following results were obtained [...] is required. Performed By: #### 3 1017-7, 60925-8 ####[facility] LABIA [id number] [place] [address] [place] tTG IgG Ser-aCncon 4 tTG IgG Qn (S) 4 U/mL Normal <6 [facility] Comment on above: Order Comment: Speci men Type: BLOOD SPECIMENOrdering Facility: [facility] Address: [address] [place] [address] Performed By: #### 3 1017-7, 92317-1 ####[facility] ANGELITO [id number] [address] [id number] [address] [place] CNOVon 02-19-2024 CNOV Office Visit (SPMIND) AURORA MONTAGUE ([id number]) 1975 F Date Time Provider Department 02/19/24 [...] Interventions: Medications: Wellbutrin, Zoloft, Klonopin -Previously tried: [place], robaxin, diclofenac 75mg BID ,medrol dose pack [...] and Invizia plate with Dr. Harvey at [facility] Office visit 03/10/23: History of Anterior cervical C4/5, C5/6, C6/7 discectomy, C5, C6 corpectomy and fusion on 11/18/16 at [facility]. Prior to surgery she had severe pain [...] the face. Seen in ED and prescribed [place] as well as amoxicillin for possible tooth infection. 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 Lots of cervical flexion/extension which aggravates [...] PCP fo (more content not included)... Normal [facility] XR LUMBAR 2V AP/LATon 2023 XR [...] IMPRESSION: Mild to moderate lumbar degenerative changes. Hand Paster: DAMON Transcribe Date/Time: Feb 19 2024 4:22P Dictated by : SARAH SEBASTIAN MD This examination was interpreted and the report reviewed and electronically signed by: VEE ALEXANDER MD on Feb 19 2024 6:07PM EST [id number] Normal [facility] XR Lumbar spine AP and Later panda 02-19-2024 IMPRESSION: Mild to moderate lumbar degenerative changes. Hand Paster: [facility] Transcribe Date/Time: Feb 19 2024 4:22P Dictated [...] of hip osteoarthritis. DIVISION OF RADIOLOGY Provider, [facility] [place] - 02/19/2024 * * *Final Report* * [...] IMPRESSION: Mild to moderate lumbar degenerative changes. Hand Paster: [facility] Transcribe Date/Time: Feb 19 2024 4:22P Dictated by : SARAH SEBASTIAN MD This examination was interpreted and the report reviewed and electronically signed by: VEE ALEXANDER MD on Feb 19 2024 6:07PM [facility] Radiology Study observation (narrative) [facility] XR Lumbar spine AP and Later alOrdered By: Ccf Provider on 02-19-2024 [facility] XR hand RT min 3V*on 024 XR hand RT min 3V* [facility] [place] [address] XRay Report Signed Patient: Aurora Montague MR#: [id number] : 1975 Acct:[id number] Age/Sex: 48 / F ADM Date: 02/15/24 Loc: XDUCLY Room: Type: [facility] Attending Dr: Flower NASH Copies to: [...] Ekta Polo M.D.02/15/2024 4:34 PM Dictation Location: [place] [address] Transcribed By: [facility] 02/15/24 1634 Dictated By: Ekta Polo MD 02/15/24 1629 Signed By: 02/15/24 1634 [facility] MR Cervical spine WO contras ton 04-21-2023 IMPRESSION: Cervical spondylosis and postoperative changes. Mild spinal canal stenosis at C3-C4. Varying degrees of up to moderate to severe foraminal stenoses, most notable at C5-C6 Anatomic Variant: None. Assume 7 cervical vertebrae with counting from the craniocervical junction. Hand Paster: [facility] Transcribe Date/Time: Apr 21 2023 7:54A Dictated by : NATALY ROBLERO DO This examination was interpreted and the report reviewed and electronically signed by: NATALY ROBLERO DO on Apr 21 2023 8:02AM [facility] DIVISION OF RADIOLOGY * * *Final Report* * * DATE OF EXAM: Apr 20 2023 4:35PM [facility] 0297 - MRI CERVICAL SPINE WO IVCON [...] foramina are patent. DIVISION OF RADIOLOGY Provider, [facility] - 04/21/2023 * * *Final Report* * * DATE OF EXAM: Apr 20 2023 4:35PM [facility] 0297 - MRI CERVICAL SPINE WO IVCON [...] vertebrae with counting from the craniocervical junction. Hand Paster: DAMON Transcribe Date/Time: Apr 21 2023 7:54A Dictated by : NATALY ROBLERO DO This examination was interpreted and the report reviewed and electronically signed by: NATALY ROBLERO DO on Apr 21 2023 8:02AM EST [facility] MR Cervical spine WO contras tOrdered By: Ccf Provider on 04-21-2023 [facility] MR Cervical spine WO contras ton 04-20-2023 Radiology Study observation (narrative) [facility] EMG(NEURO/NI)on 04-03-[address] [facility] [address] Cervical spine WO contras ton 03-25-2023 IMPRESSION: Multilevel degenerative changes of the cervical spine, most pronounced at C5-C6 and moderate bilateral neural foraminal narrowing. Anatomic Variant: None. Assume 7 cervical vertebrae with counting from the craniocervical junction. Hand Paster: DAMON Transcribe Date/Time: Mar 25 2023 4:30P Dictated by : RORO SHER MD This examination was interpreted and the report reviewed and electronically signed by: RORO SHER MD on Mar 25 2023 4:37PM [facility] DIVISION OF RADIOLOGY * * *Final Report* * * DATE OF EXAM: Mar 25 2023 3:37PM [facility] 0505 - CT CERVICAL SPINE WO IVCON [...] and fusion extending from C4 to C7. Market Editor (topogram) images: No significant findings. Alignment: Alignment [...] foramina are patent. DIVISION OF RADIOLOGY Provider, [facility] [place] - 03/25/2023 * * *Final Report* * * DATE OF EXAM: Mar 25 2023 3:37PM [facility] 0505 - CT CERVICAL SPINE WO IVCON [...] and fusion extending from C4 to C7. Market Editor (topogram) images: No significant findings. Alignment: Alignment [...] vertebrae with counting from the craniocervical junction. Hand Paster: [facility] Transcribe Date/Time: Mar 25 2023 4:30P Dictated by : RORO SHER MD This examination was interpreted and the report reviewed and electronically signed by: RORO SHER MD on Mar 25 2023 4:37PM EST [facility] Radiology Study observation (narrative) [facility] CT Cervical spine WO contras tOrdered By: Ccf Provider on 03-25-[address] [facility] [address] FACIAL BONES W CONon 05-0 CT FACIAL BONES W CON EXAMINATION: CT FACIAL BONES W CON HISTORY: Toothache left jaw pain and facial pain COMPARISON: CT from [facility] 11/05/2016 of the cervical spine TECHNIQUE: 100 [...] substantially changed as compared to study from [facility] on 11/05/2016 indicating this is a benign reactive lymph node. 5. No evidence for sinusitis. 6. No evidence for facial bone fracture. Electronically authenticated by: KELLEE CANO Date: 2023-03-08 20:44 Normal [facility] CBC AUTO DIFFon 03-02-2023 BASO # 0.0 103/ul Normal 0.0-0.1 [facility] Comment on above: Performed By: #### I NSULIN #### [facility] [address] [place] [address] [address] Milad Garcia Basophils/100 WBC (Bld) 0.4 % Normal 0.2-2.0 [facility] Comment on above: Performed By: #### I NSULIN #### [facility] [address] [place] [address] [address] Milad Garcia EO # 0.1 103/ul Normal 0.0-0.7 [facility] Comment on above: Performed By: #### I NSULIN #### [facility] [address] [place] [address] Dr. Milad Garcia Eosinophils/100 WBC (Bld) 1.3 % Normal 0.9-7.0 [facility] Comment on above: Performed By: #### I NSULIN #### [facility] [address] [place] [address] Dr. Milad Garcia Erythrocyte distribution width (RBC) [Ratio] 12.9 % Normal 11.0-15.0 [facility] Comment on above: Performed By: #### I NSULIN #### [facility] [address] [place] [address] Dr. Milad Garcia Hematocrit (Bld) [Volume fraction] 40.2 % Normal 36.0-48.0 [facility] Comment on above: Performed By: #### I NSULIN #### [facility] [address] [place] [address] Dr. Milad Garcia Hemoglobin (Bld) [Mass/Vol] 13.6 g/dL Normal 12.0-16.0 [facility] Comment on above: Performed By: #### I NSULIN #### [facility] [address] [place] [address] Dr. Milad Garcia IG # 0.02 10e3/ul Normal 0.00-0.03 [facility] Comment on above: Performed By: #### I NSULIN #### [facility] [address] [place] [address] Dr. Milad Garcia IG % 0.3 % Normal 0.0-0.5 [facility] Comment on above: Performed By: #### I NSULIN #### [facility] [address] [place] [address] Dr. Milad Garcia LYMPH # 2.8 103/ul Normal 1.2-3.8 [facility] Comment on above: Performed By: #### I NSULIN #### [facility] [address] [place] [address] Dr. Milad Garcia Lymphocytes/100 WBC (Bld) 37.5 % Normal 20.5-60.0 [facility] Comment on above: Performed By: #### I NSULIN #### [facility] [address] [place] [address] Dr. Milad Garcia MANUAL DIFF REQ NO Normal [facility] Comment on above: Performed By: #### I NSULIN #### [facility] [address] [place] [address] Dr. Milad Garcia MCH (RBC) [Entitic mass] 31.6 pg Normal 26.7-34.0 [facility] Comment on above: Performed By: #### I NSULIN #### [facility] [address] [place] [address] Dr. Milad Garcia MCHC (RBC) [Mass/Vol] 33.8 g/dL Normal 29.9-35.2 [facility] Comment on above: Performed By: #### I NSULIN #### [facility] [address] [place] [address] Dr. Milad Garcia MCV (RBC) [Entitic vol] 93.3 fL Normal 81.0-99.0 [facility] Comment on above: Performed By: #### I NSULIN #### [facility] [address] [place] [address] Dr. Milad Garcia MONO # 0.6 103/ul Normal 0.3-0.8 [facility] Comment on above: Performed By: #### I NSULIN #### [facility] [address] [place] [address] Dr. Milad Garcia Monocytes/100 WBC (Bld) 8.0 % Normal 1.7-12.0 [facility] Comment on above: Performed By: #### I NSULIN #### [facility] [address] [place] [address] Dr. Milad Garcia NEUT # 3.9 103/ul Normal 1.4-6.5 [facility] Comment on above: Performed By: #### I NSULIN #### [facility] [address] [place] [address] Dr. Milad Garcia Neutrophils/100 WBC (Bld) 52.5 % Normal 43.0-75.0 [facility] Comment on above: Performed By: #### I NSULIN #### [facility] [address] [place] [address] Dr. Milad Garcia Platelet mean volume (Bld) [Entitic vol] 9.4 fL Critically low 9.5-13.5 [facility] Comment on above: Performed By: #### I NSULIN #### [facility] [address] [place] [address] Dr. Milad Garcia PLT 252 103/ul Normal 150-450 [facility] Comment on above: Performed By: #### I NSULIN #### [facility] [address] [place] [address] Dr. Milad Garcia RBC 4.31 106/ul Normal 4.20-5.40 [facility] Comment on above: Performed By: #### I NSULIN #### [facility] [address] [place] [address] Dr. Milad Garcia WBC 7.4 103/ul Normal 4.0-11.0 [facility] Comment on above: Performed By: #### I NSULIN #### [facility] [address] [place] [address] Dr. Milad Garcia INSULINon 02-02-2023 Insulin 15.5 uIU/mL Normal 2.6-24.9 [facility] Comment on above: Performed By: #### I NSULIN #### [facility] [address] [place] [address] Dr. Milad Garcia OCC BLD IMMUNO SCREENon OCCULT BLOOD Positive Abnormal NEGATIVE [facility] Comment on above: Performed By: #### I NSULIN #### [facility] [address] [place] [address] Dr. Milad Garcia CBC AUTO DIFFon 01-31-2023 BASO # 0.0 103/ul Normal 0.0-0.1 [facility] Comment on above: Performed By: #### I NSULIN #### [facility] [address] [place] [address] Dr. Milad Garcia Basophils/100 WBC (Bld) 0.1 % Critically low 0.2-2.0 [facility] Comment on above: Performed By: #### I NSULIN #### [facility] [address] [place] [address] Dr. Milad Garcia EO # 0.0 103/ul Normal 0.0-0.7 [facility] Comment on above: Performed By: #### I NSULIN #### [facility] [address] [place] [address] Dr. Milad Garcia Eosinophils/100 WBC (Bld) 0.0 % Critically low 0.9-7.0 [facility] Comment on above: Performed By: #### I NSULIN #### [facility] [address] [place] [address] Dr. Milad Garcia Erythrocyte distribution width (RBC) [Ratio] 13.1 % Normal 11.0-15.0 [facility] Comment on above: Performed By: #### I NSULIN #### [facility] [address] [place] [address] Dr. Milad Garcia Hematocrit (Bld) [Volume fraction] 40.2 % Normal 36.0-48.0 [facility] Comment on above: Performed By: #### I NSULIN #### [facility] [address] [place] [address] Dr. Milad Garcia Hemoglobin (Bld) [Mass/Vol] 13.8 g/dL Normal 12.0-16.0 [facility] Comment on above: Performed By: #### I NSULIN #### [facility] [address] [place] [address] Dr. Milad Garcia IG # 0.07 10e3/ul Critically high 0.00-0.03 [facility] Comment on above: Performed By: #### I NSULIN #### [facility] [address] [place] [address] Dr. Milad Garcia IG % 0.4 % Normal 0.0-0.5 [facility] Comment on above: Performed By: #### I NSULIN #### [facility] [address] [place] [address] Dr. Milad Garcia LYMPH # 3.0 103/ul Normal 1.2-3.8 [facility] Comment on above: Performed By: #### I NSULIN #### [facility] [address] [place] [address] Dr. Milad Garcia Lymphocytes/100 WBC (Bld) 18.7 % Critically low 20.5-60.0 [facility] Comment on above: Performed By: #### I NSULIN #### [facility] [address] [place] [address] Dr. Milad Garcia MANUAL DIFF REQ NO Normal [facility] Comment on above: Performed By: #### I NSULIN #### [facility] [address] [place] [address] Dr. Milad Garcia MCH (RBC) [Entitic mass] 31.7 pg Normal 26.7-34.0 [facility] Comment on above: Performed By: #### I NSULIN #### [facility] [address] [place] [address] Dr. Milad Garcia MCHC (RBC) [Mass/Vol] 34.3 g/dL Normal 29.9-35.2 [facility] Comment on above: Performed By: #### I NSULIN #### [facility] [address] [place] [address] Dr. Milad Garcia MCV (RBC) [Entitic vol] 92.4 fL Normal 81.0-99.0 [facility] Comment on above: Performed By: #### I NSULIN #### [facility] [address] [place] [address] Dr. Milad Garcia MONO # 1.0 103/ul Critically high 0.3-0.8 [facility] Comment on above: Performed By: #### I NSULIN #### [facility] [address] [place] [address] Dr. Milad Garcia Monocytes/100 WBC (Bld) 5.9 % Normal 1.7-12.0 [facility] Comment on above: Performed By: #### I NSULIN #### [facility] [address] [place] [address] Dr. Milad Garcia NEUT # 12.0 103/ul Critically high 1.4-6.5 [facility] Comment on above: Performed By: #### I NSULIN #### [facility] [address] [place] [address] Dr. Milad Garcia Neutrophils/100 WBC (Bld) 74.9 % Normal 43.0-75.0 [facility] Comment on above: Performed By: #### I NSULIN #### [facility] [address] [place] [address] Dr. Milad Garcia Platelet mean volume (Bld) [Entitic vol] 10.0 fL Normal 9.5-13.5 [facility] Comment on above: Performed By: #### I NSULIN #### [facility] [address] [place] [address] Dr. Milad Garcia PLT 300 103/ul Normal 150-450 [facility] Comment on above: Performed By: #### I NSULIN #### [facility] [address] [place] [address] Dr. Milad Garcia RBC 4.35 106/ul Normal 4.20-5.40 [facility] Comment on above: Performed By: #### I NSULIN #### [facility] [address] [place] [address] Dr. Milad Garcia WBC 16.0 103/ul Critically high 4.0-11.0 [facility] Comment on above: Performed By: #### I NSULIN #### [facility] [address] [place] [address] Dr. Milad Garcia FREE THYROXINE INDEX T7on FTI 1.28 Critically low 1.30-4.50 [facility] Comment on above: Performed By: #### L IPID, TSH, CMP, T7 #### [facility] [address] [place] [address] Dr. Milad Garcia T3U 32.0 % Normal 30.0-39.0 [facility] Comment on above: Performed By: #### L IPID, TSH, CMP, T7 #### [facility] [address] [place] [address] Dr. Milad Garcia T4 [Mass/Vol] 4.00 ug/dL Critically low 4.80-13.90 [facility] Comment on above: Performed By: #### L IPID, TSH, CMP, T7 #### [facility] [address] [address] [address] Milad Garcia GLYCOHEMOGLOBIN A1Con 2022 ADA RECOMMENDATION SEE BELOW Normal [facility] Comment on above: Result Comment: ADA RECOMMENDED LIMIT 4.0 - 6.0 ADA THERAPEUTIC TARGET < 7.0 ACTION SUGGESTED > 7.0 Performed By: #### A 1C #### [facility] [address] [place] [address] [address] Milad Garcia Glucose [Mass/Vol] 103 mg/dL Normal [facility] Comment on above: Performed By: #### A 1C #### [facility] [address] [place] [address] Dr. Milad Garcia HbA1c (Bld) [Mass fraction] 5.2 % Normal 4.5-6.2 [facility] Comment on above: Performed By: #### A 1C #### [facility] [address] [place] [address] [address] Milad Garcia IRONon 01-31-2023 Iron [Mass/Vol] 88.0 ug/dL Normal 50.0-170.0 [facility] Comment on above: Performed By: #### I SATNAM #### [facility] [address] [place] [address] Dr. Milad Garcia LIPID PROFILEon 01-31-2023 CHOL-HDL RATIO NORM SEE BELOW Normal [facility] Comment on above: Result Comment: 3.3 - 4.4 LOW RISK 4.4 - 7.1 AVERAGE RISK 7.1 - 11.0 MODERATE RISK >11.0 HIGH RISK Performed By: #### L IPID, TSH, CMP, T7 #### [facility] [address] [address] [address] Milad Garcia Cholesterol [Mass/Vol] 194 mg/dL Normal <=200 [facility] Comment on above: Performed By: #### L IPID, TSH, CMP, T7 #### [facility] [address] [address] [address] Milad Garcia Cholesterol in HDL [Mass/Vol] 73 mg/dL Critically high 40-60 [facility] Comment on above: Performed By: #### L IPID, TSH, CMP, T7 #### [facility] [address] [address] [address] Milad Garcia Cholesterol in LDL [Mass/Vol] 105.0 mg/dL Normal [facility] Comment on above: Performed By: #### L IPID, TSH, CMP, T7 #### [facility] [address] [address] [address] Milad Garcia Cholesterol.total/Ch olesterol in HDL [Mass ratio] 2.7 {ratio} Normal [facility] Comment on above: Performed By: #### L IPID, TSH, CMP, T7 #### [facility] [address] [address] [address] Milad Garcia HDL NORMAL > or = 60 mg/dl - LOW CARDIOVASCULAR RISK <40 mg/dl - HIGH CARDIOVASCULAR RISK Normal [facility] Comment on above: Performed By: #### L IPID, TSH, CMP, T7 #### [facility] [address] [address] [address] Milad Garcia LDL CALC NORMAL SEE BELOW Normal [facility] Comment on above: Result Comment: <100 mg/dl OPTIMAL 100 - 129 mg/dl NEAR OR ABOVE OPTIMAL 130 - 159 mg/dl BORDERLINE HIGH 160 - 189 mg/dl HIGH >190 mg/dl VERY HIGH Performed By: #### L IPID, TSH, CMP, T7 #### [facility] [address] [address] [address] Milad Garcia Triglyceride [Mass/Vol] 80 mg/dL Normal <=150 [facility] Comment on above: Performed By: #### L IPID, TSH, CMP, T7 #### [facility] [address] [address] [address] Milad Garcia VLDL CALC 16.0 mg/dL Normal [facility] Comment on above: Performed By: #### L IPID, TSH, CMP, T7 #### [facility] [address] [place] [address] Dr. Milad Garcia PROF 14(COMP METB)on 023 Albumin [Mass/Vol] 4.0 g/dL Normal 3.4-5.0 [facility] Comment on above: Performed By: #### L IPID, TSH, CMP, T7 #### [facility] [address] [place] [address] Dr. Milad Garcia Albumin/Globulin [Mass ratio] 1.4 {ratio} Normal [facility] Comment on above: Performed By: #### L IPID, TSH, CMP, T7 #### [facility] [address] [place] [address] Dr. Milad Garcia ALP [Catalytic activity/Vol] 61 U/L Normal 46-116 [facility] Comment on above: Performed By: #### L IPID, TSH, CMP, T7 #### [facility] [address] [place] [address] Dr. Milad Garcia ALT [Catalytic activity/Vol] 20 U/L Normal 14-59 [facility] Comment on above: Performed By: #### L IPID, TSH, CMP, T7 #### [facility] [address] [place] [address] Dr. Milad Garcia Anion gap [Moles/Vol] 14.2 mmol/L Normal [facility] Comment on above: Performed By: #### L IPID, TSH, CMP, T7 #### [facility] [address] [place] [address] Dr. Milad Garcia AST [Catalytic activity/Vol] 7 U/L Critically low 15-37 [facility] Comment on above: Performed By: #### L IPID, TSH, CMP, T7 #### [facility] [address] [place] [address] Dr. Milad Garcia Bilirubin [Mass/Vol] 0.3 mg/dL Normal 0.2-1.0 [facility] Comment on above: Performed By: #### L IPID, TSH, CMP, T7 #### [facility] [address] [place] [address] Dr. Milad Garcia Calcium [Mass/Vol] 9.0 mg/dL Normal 8.5-10.1 [facility] Comment on above: Performed By: #### L IPID, TSH, CMP, T7 #### [facility] [address] [address] [address] Milad Garcia Chloride [Moles/Vol] 106 mmol/L Normal 98-107 [facility] Comment on above: Performed By: #### L IPID, TSH, CMP, T7 #### [facility] [address] [address] [address] Milad Garcia CO2 [Moles/Vol] 25.6 mmol/L Normal 21.0-32.0 The [facility] Comment on above: Performed By: #### L IPID, TSH, CMP, T7 #### [facility] [address] [address] [address] Milad Garcia Creatinine [Mass/Vol] 0.87 mg/dL Normal 0.55-1.02 [facility] Comment on above: Performed By: #### L IPID, TSH, CMP, T7 #### [facility] [address] [address] [address] Milad Garcia EGFR-AF GUAMANIAN >60 Normal >=60 The [facility] Comment on above: Performed By: #### L IPID, TSH, CMP, T7 #### [facility] [address] [place] [address] Dr. Milad Garcia EGFR-NON AF GUAMANIAN >60 Normal >=60 [facility] Comment on above: Performed By: #### L IPID, TSH, CMP, T7 #### [facility] [address] [address] [address] Milad Garcia Globulin (S) [Mass/Vol] 2.9 g/dL Normal [facility] Comment on above: Performed By: #### L IPID, TSH, CMP, T7 #### [facility] [address] [address] [address] Milad Garcia Glucose [Mass/Vol] 90 mg/dL Normal 74-106 [facility] Comment on above: Performed By: #### L IPID, TSH, CMP, T7 #### [facility] [address] [place] [address] Dr. Milad Garcia Potassium [Moles/Vol] 3.8 mmol/L Normal 3.5-5.1 [facility] Comment on above: Performed By: #### L IPID, TSH, CMP, T7 #### [facility] [address] [place] [address] Dr. Milad Garcia Protein [Mass/Vol] 6.9 g/dL Normal 6.4-8.2 [facility] Comment on above: Performed By: #### L IPID, TSH, CMP, T7 #### [facility] [address] [place] [address] Dr. Milad Garcia Sodium [Moles/Vol] 142 mmol/L Normal 136-145 [facility] Comment on above: Performed By: #### L IPID, TSH, CMP, T7 #### [facility] [address] [place] [address] Dr. Milad Garcia Urea nitrogen [Mass/Vol] 15.0 mg/dL Normal 7.0-18.0 [facility] Comment on above: Performed By: #### L IPID, TSH, CMP, T7 #### [facility] [address] [place] [address] Dr. Milad Garcia Urea nitrogen/Creatinine [Mass ratio] 17.2 mg/mg Normal [facility] Comment on above: Performed By: #### L IPID, TSH, CMP, T7 #### [facility] [address] [place] [address] Dr. Milad Garcia TSHon 01-31-2023 TSH 0.493 uIU/mL Normal 0.358-3.[address] [facility] Comment on above: Performed By: #### L IPID, TSH, CMP, T7 #### [facility] [address] [place] [address] Dr. Milad Garcia CBC AUTO DIFFon 11-27-2022 BASO # 0.0 103/ul Normal 0.0-0.1 [facility] Comment on above: Performed By: #### C BC #### [facility] [address] [address] [address] Milad Garcia Basophils/100 WBC (Bld) 0.4 % Normal 0.2-2.0 [facility] Comment on above: Performed By: #### C BC #### [facility] [address] [place] [address] Dr. Milad Garcia EO # 0.1 103/ul Normal 0.0-0.7 [facility] Comment on above: Performed By: #### C BC #### [facility] [address] [place] [address] Dr. Milad Garcia Eosinophils/100 WBC (Bld) 0.9 % Normal 0.9-7.0 [facility] Comment on above: Performed By: #### C BC #### [facility] [address] [place] [address] Dr. Milad Garcia Erythrocyte distribution width (RBC) [Ratio] 13.0 % Normal 11.0-15.0 [facility] Comment on above: Performed By: #### C BC #### [facility] [address] [place] [address] Dr. Milad Garcia Hematocrit (Bld) [Volume fraction] 42.0 % Normal 36.0-48.0 [facility] Comment on above: Performed By: #### C BC #### [facility] [address] [place] [address] Dr. Milad Garcia Hemoglobin (Bld) [Mass/Vol] 13.3 g/dL Normal 12.0-16.0 [facility] Comment on above: Performed By: #### C BC #### [facility] [address] [place] [address] Dr. Milad Garcia IG # 0.02 10e3/ul Normal 0.00-0.03 [facility] Comment on above: Performed By: #### C BC #### [facility] [address] [place] [address] Dr. Milad Garcia IG % 0.2 % Normal 0.0-0.5 [facility] Comment on above: Performed By: #### C BC #### [facility] [address] [address] [address] Milad Garcia LYMPH # 2.8 103/ul Normal 1.2-3.8 [facility] Comment on above: Performed By: #### C BC #### [facility] [address] [place] [address] Dr. Milad Garcia Lymphocytes/100 WBC (Bld) 32.2 % Normal 20.5-60.0 [facility] Comment on above: Performed By: #### C BC #### [facility] [address] [place] [address] Dr. Milad Garcia MANUAL DIFF REQ NO Normal [facility] Comment on above: Performed By: #### C BC #### [facility] [address] [place] [address] Dr. Milad Garcia MCH (RBC) [Entitic mass] 31.5 pg Normal 26.7-34.0 [facility] Comment on above: Performed By: #### C BC #### [facility] [address] [place] [address] Dr. Milad Garcia MCHC (RBC) [Mass/Vol] 31.7 g/dL Normal 29.9-35.2 [facility] Comment on above: Performed By: #### C BC #### [facility] [address] [place] [address] Dr. Milad Garcia MCV (RBC) [Entitic vol] 99.5 fL Critically high 81.0-99.0 [facility] Comment on above: Performed By: #### C BC #### [facility] [address] [place] [address] Dr. Milad Garcia MONO # 0.6 103/ul Normal 0.3-0.8 [facility] Comment on above: Performed By: #### C BC #### [facility] [address] [place] [address] Dr. Milad Garcia Monocytes/100 WBC (Bld) 6.8 % Normal 1.7-12.0 [facility] Comment on above: Performed By: #### C BC #### [facility] [address] [place] [address] Dr. Milad Garcia NEUT # 5.1 103/ul Normal 1.4-6.5 [facility] Comment on above: Performed By: #### C BC #### [facility] [address] [place] [address] Dr. Milad Garcia Neutrophils/100 WBC (Bld) 59.5 % Normal 43.0-75.0 [facility] Comment on above: Performed By: #### C BC #### [facility] [address] [place] [address] Dr. Milad Garcia Platelet mean volume (Bld) [Entitic vol] 10.0 fL Normal 9.5-13.5 [facility] Comment on above: Performed By: #### C BC #### [facility] [address] [place] [address] Dr. Milad Garcia PLT 247 103/ul Normal 150-450 [facility] Comment on above: Performed By: #### C BC #### [facility] [address] [place] [address] Dr. Milad Garcia RBC 4.22 106/ul Normal 4.20-5.40 [facility] Comment on above: Performed By: #### C BC #### [facility] [address] [place] [address] Dr. Milad Garcia WBC 8.6 103/ul Normal 4.0-11.0 [facility] Comment on above: Performed By: #### C BC #### [facility] [address] [place] [address] Dr. Milad Garcia LIPASEon 11-27-2022 Lipase [Catalytic activity/Vol] 50.0 U/L Critically low 73.0-393.0 [facility] Comment on above: Performed By: #### I NSULIN #### [facility] [address] [place] [address] Dr. Milad Garcia PROF 14(COMP METB)on 023 Albumin [Mass/Vol] 3.7 g/dL Normal 3.4-5.0 [facility] Comment on above: Performed By: #### I NSULIN #### [facility] [address] [place] [address] Dr. Milad Garcia Albumin/Globulin [Mass ratio] 1.3 {ratio} Normal [facility] Comment on above: Performed By: #### I NSULIN #### [facility] [address] [place] [address] Dr. Milad Garcia ALP [Catalytic activity/Vol] 72 U/L Normal 46-116 [facility] Comment on above: Performed By: #### I NSULIN #### [facility] [address] [place] [address] Dr. Milad Garcia ALT [Catalytic activity/Vol] 14 U/L Normal 14-59 [facility] Comment on above: Performed By: #### I NSULIN #### [facility] [address] [place] [address] Dr. Milad Garcia Anion gap [Moles/Vol] 11.5 mmol/L Normal [facility] Comment on above: Performed By: #### I NSULIN #### [facility] [address] [place] [address] Dr. Milad Garcia AST [Catalytic activity/Vol] 13 U/L Critically low 15-37 [facility] Comment on above: Performed By: #### I NSULIN #### [facility] [address] [place] [address] Dr. Milad Garcia Bilirubin [Mass/Vol] 0.3 mg/dL Normal 0.2-1.0 [facility] Comment on above: Performed By: #### I NSULIN #### [facility] [address] [place] [address] Dr. Milad Garcia Calcium [Mass/Vol] 8.8 mg/dL Normal 8.5-10.1 [facility] Comment on above: Performed By: #### I NSULIN #### [facility] [address] [place] [address] Dr. Milad Garcia Chloride [Moles/Vol] 105 mmol/L Normal 98-107 [facility] Comment on above: Performed By: #### I NSULIN #### [facility] [address] [place] [address] Dr. Milad Garcia CO2 [Moles/Vol] 26.1 mmol/L Normal 21.0-32.0 [facility] Comment on above: Performed By: #### I NSULIN #### [facility] [address] [place] [address] Dr. Milad Garcia Creatinine [Mass/Vol] 0.78 mg/dL Normal 0.55-1.02 [facility] Comment on above: Performed By: #### I NSULIN #### [facility] [address] [address] [address] Milad Garcia EGFR-AF GUAMANIAN >60 Normal >=60 [facility] Comment on above: Performed By: #### I NSULIN #### [facility] [address] [place] [address] Dr. Milad Garcia EGFR-NON AF GUAMANIAN >60 Normal >=60 [facility] Comment on above: Performed By: #### I NSULIN #### [facility] [address] [place] [address] Dr. Milad Garcia Globulin (S) [Mass/Vol] 2.9 g/dL Normal [facility] Comment on above: Performed By: #### I NSULIN #### [facility] [address] [place] [address] Dr. Milad Garcia Glucose [Mass/Vol] 112 mg/dL Critically high 74-[address] [facility] Comment on above: Performed By: #### I NSULIN #### [facility] [address] [place] [address] Dr. Milad Garcia Potassium [Moles/Vol] 3.6 mmol/L Normal 3.5-5.1 [facility] Comment on above: Performed By: #### I NSULIN #### [facility] [address] [place] [address] Dr. Milad Garcia Protein [Mass/Vol] 6.6 g/dL Normal 6.4-8.2 [facility] Comment on above: Performed By: #### I NSULIN #### [facility] [address] [place] [address] Dr. Milad Garcia Sodium [Moles/Vol] 139 mmol/L Normal 136-145 [facility] Comment on above: Performed By: #### I NSULIN #### [facility] [address] [address] [address] Milad Garcia Urea nitrogen [Mass/Vol] 10.0 mg/dL Normal 7.0-18.0 [facility] Comment on above: Performed By: #### I NSULIN #### [facility] [address] [address] [address] Milad Garcia Urea nitrogen/Creatinine [Mass ratio] 12.8 mg/mg Normal [facility] Comment on above: Performed By: #### I NSULIN #### [facility] [address] [address] [address] Milad Garcia TROPONIN, HIGH SENSITIVITYon 11-27-2022 HSTROP <4.0 Normal 4.0-51.3 [facility] Comment on above: Result Comment: CUT- OFF POINTS HAVE BEEN ESTABLISHED BASED ON THE FOURTH UNIVERSAL DEFINITIONS OF MYOCARDIAL INFARCTION. THE UPPER REFERENCE LIMIT (URL) OF TROPONIN, DEFINED THE 99TH PERCENTILE OF cTnI DISTRIBUTION IN A REFERENCE POPULATION, HAS BEEN CONFIRMED THE DECISION THRESHOLD FOR PA DIAGNOSIS. Performed By: #### L IPA, HSTROPN, CMP #### [facility] [address] [place] [address] Dr. Milad Garcia XR RIBS LT PA [...] by: DANIS ORTEGA Date: 2022-11-27 17:27 Normal [facility] MG MAMM RT DIAG FUon 023 MG MAMM RT DIAG FU Patient: AURORA MONTAGUE Exam Date: 11/07/2022 : 1975 Gender:F Ordering : DR TANG MCGEE . Admission #: [id number] Family : Order #: [id number] CLICK HERE TO VIEW EXAM RADIOLOGY REPORT [...] lung cancer at age 73. LOCATION: The [facility] BREAST COMPOSITION: Heterogeneously dense,which may obscure small [...] M.D. on 11/07/2022 at 11:04 Normal [facility] US BREAST RIGHT LIMITEDon US BREAST RIGHT LIMITED Patient: AURORA MONTAGUE Exam Date: 11/07/2022 : 1975 Gender:F Ordering : DR TANG MCGEE . Admission #: [id number] Family : Order #: [id number] CLICK HERE TO VIEW EXAM RADIOLOGY REPORT [...] lung cancer at age 73. LOCATION: The [facility] BREAST COMPOSITION: Heterogeneously dense,which may obscure small [...] M.D. on 11/07/2022 at 11:04 Normal [facility] XR CSPINE MIN 4 VIEWSon XR CSPINE MIN 4 VIEWS EXAMINATION: XR [...] by: DANIS BERGER Date: 2022-09-03 18:43 Normal [facility] MAMM SCREEN 3D DANA CADon 09-02-2022 MG MAMM SCREEN 3D DANA CAD Patient: AURORA MONTAGUE Exam Date: 09/02/2022 : 1975 Gender:F Ordering : DR TANG MCGEE . Admission #: [id number] Family : Order #: [id number] CLICK HERE TO VIEW EXAM RADIOLOGY REPORT [...] lung cancer at age 73. LOCATION: [facility] BREAST COMPOSITION: Heterogeneously dense,which may obscure small [...] Berger MD on 09/03/2022 at 08:25 Normal [facility] XR CHEST 2 Von 05-22-2022 XR [...] by: DANIS BERGER Date: 2022-05-22 16:45 Normal [facility] PAP ACOG PANEL 2: 30 to 65on 04-25-2022 . . Normal [facility] Comment on above: Result Comment: Perf ormed at: WB Performed By: #### I NSULIN #### [facility] [address] [place] [address] Dr. Milad Garcia Age Gdln ACOG Testing 30-65 Normal [facility] Comment on above: Performed By: #### I NSULIN #### [facility] [address] [place] [address] Dr. Milad Garcia DIAGNOSIS: Comment Normal [facility] Comment on above: Result Comment: NEGA TIVE FOR INTRAEPITHELIAL LESION OR MALIGNANCY. THIS SPECIMEN WAS RESCREENED PART OF OUR [employer] PROGRAM. Performed at: WB Performed By: #### I NSULIN #### [facility] [address] [place] [address] Dr. Milad Garcia HPV Aptima Negative Normal Negative [facility] Comment on above: Result Comment: This nucleic acid amplification test detects fourteen high-risk HPV types (16,18,31,33,35,39,45,51,52,56,58,59,66,68) without differentiation. Performed at: =G Performed By: #### I NSULIN #### [facility] [address] [place] [address] Dr. Milad Garcia Methodology: Comment Normal [facility] Comment on above: Result Comment: This liquid based ThinPrep(R) pap test was screened with the use of an image guided system. Performed at: WB Performed By: #### I NSULIN #### [facility] [address] [place] [address] Dr. Milad Garcia Note: Comment Normal [facility] Comment on above: Result Comment: The [...] WB Performed By: #### I NSULIN #### [facility] [address] [place] [address] Dr. Milad Garcia Performed by: Comment Normal [facility] Comment on above: Result Comment: Micaela Fernandez, Career Based Intervention Coordinator (ASCP) Performed at: WB Performed By: #### I NSULIN #### [facility] [address] [place] [address] Dr. Milad Garcia QC reviewed by: Comment Normal [facility] Comment on above: Result Comment: Brando Ruby, Career Based Intervention Coordinator (ASCP) Performed at: WB Performed By: #### I NSULIN #### [facility] [address] [place], [place] [address] Dr. Milad Garcia Specimen adequacy: Comment Normal [facility] Comment on above: Result Comment: Sati sfactory for evaluation. No endocervical component is identified. Performed at: WB Performed By: #### I NSULIN #### [facility] [address] [place], [place] [address] Dr. Milad Garcia MRI LSPINE WO CONon [...] PATIENCE HERNANDEZ Date: 2022-04-15 10:32 Normal [facility] SYMPTOMATIC COVID-19 ANTIGEN on 04-09-2022 EUA Statement SEE BELOW Normal [facility] Comment on above: Result Comment: [...] sooner. Performed By: #### I NSULIN #### [facility] [address] [place] [address] Dr. Milad Garcia SARS-CoV-2 (COVID-19) RNA TINO+probe Ql (Unsp spec) Positive Critically abnormal NEGATIVE [facility] Comment on above: Performed By: #### I NSULIN #### [facility] [address] [place] [address] Dr. Milad Garcia CULTURE URINEon 04-04-2022 CULTURE URINE Culture Observations: LIGHT GROWTH OF MIXED GENITAL JOSEFA. NO POTENTIAL PATHOGENS SEEN. Normal [facility] Comment on above: Performed By: #### I NSULIN #### [facility] [address] [place] [address] Dr. Milad Garcia UA RANDOM W/MICROSCOPICon BACTERIA TRACE Abnormal NONE SEEN [facility] Comment on above: Performed By: #### U AMIC #### [facility] [address] [place] [address] Dr. Milad Garcia Bilirubin Ql (U) Negative Normal NEGATIVE [facility] Comment on above: Performed By: #### U AMIC #### [facility] [address] [place], [place] [id number] Dr. Milad Garcia CAST NONE SEEN Normal NONE SEEN [facility] Comment on above: Performed By: #### U AMIC #### [facility] [address] [address] [address] Milad Garcia Clarity (U) CLEAR Normal CLEAR [facility] Comment on above: Performed By: #### U AMIC #### [facility] [address] [address] [address] Milad Garcia Color (U) LT. YELLOW Normal YELLOW [facility] Comment on above: Performed By: #### U AMIC #### [facility] [address] [address] [address] Milad Garcia Crystals LM Nom (Urine sed) NONE SEEN Normal NONE SEEN [facility] Comment on above: Performed By: #### U AMIC #### [facility] [address] [place] [address] Dr. Milad Garcia Epithelial cells LM Ql (Urine sed) RARE Normal NONE SEEN /RARE [facility] Comment on above: Performed By: #### U AMIC #### [facility] [address] [place] [address] Dr. Milad Garcia Glucose Ql (U) Negative Normal NEGATIVE [facility] Comment on above: Performed By: #### U AMIC #### [facility] [address] [place] [address] Dr. Milad Garcia Hemoglobin Ql (U) TRACE-INTACT Abnormal NEGATIVE [facility] Comment on above: Performed By: #### U AMIC #### [facility] [address] [place] [address] Dr. Milad Garcia Ketones Ql (U) Negative Normal NEGATIVE [facility] Comment on above: Performed By: #### U AMIC #### [facility] [address] [place] [address] Dr. Milad Garcia LEUKOCYTES Negative Normal NEGATIVE [facility] Comment on above: Performed By: #### U AMIC #### [facility] [address] [place] [address] Dr. Milad Garcia MUCOUS NONE SEEN Normal NONE SEEN [facility] Comment on above: Performed By: #### U AMIC #### [facility] [address] [address] [address] Milad Garcia Nitrite Ql (U) Negative Normal NEGATIVE [facility] Comment on above: Performed By: #### U AMIC #### [facility] [address] [place] [address] Dr. Milad Garcia pH (U) 6.5 [pH] Normal 5-9 [facility] Comment on above: Performed By: #### U AMIC #### [facility] [address] [place] [address] Dr. Milad Garcia RBC 0-2 Normal 0-2 [facility] Comment on above: Performed By: #### U AMIC #### [facility] [address] [place] [address] Dr. Milad Garcia SPEC GRAVITY <=1.005 Abnormal 1.005-<=1.02 5 [facility] Comment on above: Performed By: #### U AMIC #### [facility] [address] [place] [address] Dr. Milad Gracia UA PROTEIN Negative Normal NEGATIVE/ TRACE [facility] Comment on above: Performed By: #### U AMIC #### [facility] [address] [place] [address] Dr. Milad Garcia Urobilinogen Qn (U) 0.2 {Dior'U}/dL Normal 0.2 - 1. 0 [facility] Comment on above: Performed By: #### U AMIC #### [facility] [address] [place] [address] Dr. Milad Garcia WBC NONE SEEN Normal NONE SEEN [facility] Comment on above: Performed By: #### U AMIC #### [facility] [address] [place] [address] Dr. Milad Garcia XR LSPINE MIN 4 [...] by: PATIENCE HERNANDEZ Date: 2022-04-04 17:30 Normal [facility] XR foot RT min 3V*on 022 XR foot RT min 3V* [facility] [employer] Other XR foot RT min 3V* [facility] [employer] Other XR foot RT min 3V* [address] [place] [address] [employer] Other XR foot RT min 3V* [place] [address] [employer] Other XR foot RT min 3V* XRay Report [employer] Other XR foot RT min 3V* Signed [employer] Other XR foot RT min 3V* Patient: Aurora Montague MR#: [id number] [employer] Other XR foot RT min 3V* [id number] [employer] Other XR foot RT min 3V* : 1975 Acct:[id number] [employer] Other XR foot RT min 3V* Age/Sex: 46 / F ADM Date: 11/14/21 [employer] Other XR foot RT min 3V* Loc: XDUCLY Room: Type: [facility] [employer] Other XR foot RT min 3V* Attending Dr: José Miguel Beltran PA-C [employer] Other XR foot RT min 3V* Ordering Provider: José Miguel Beltran [employer] Other XR foot RT min 3V* Date of Service: 11/14/21 [employer] Other XR foot RT min 3V* XR/XR foot RT min 3V*: Injury of right foot, initial encounter [employer] Other XR foot RT min 3V* Copies to: José Miguel Beltran [employer] Other XR foot RT min 3V* RIGHT FOOT - 3 views [employer] Other XR foot RT min 3V* COMPARISON: None [employer] Other XR foot RT min 3V* Reason for exam: Proximal phalanx pain of the third, fourth and fifth digits status post injury for [employer] Other XR foot RT min 3V* 1 day. [employer] Other XR foot RT min 3V* No focal soft tissue abnormality is noted. No acute bony process is seen. Joint spaces appear [employer] Other XR foot RT min 3V* well-maintained. No bony erosions. [employer] Other XR foot RT min 3V* XR/XR foot RT min 3V* [employer] Other XR foot RT min 3V* IMPRESSION: [employer] Other XR foot RT min 3V* NO ACUTE BONY INJURY. [employer] Other XR foot RT min 3V* Impression dictated by: Ruben Kelsey Jr., D.OJuan J11/14/2021 3:49 PM [employer] Other XR foot RT min 3V* Dictation Location: [place] [address] [employer] Other XR foot RT min 3V* Transcribed By: SHAWNEE 11/14/21 1549 [employer] Other XR foot RT min 3V* Dictated By: Ruben Kelsey Jr DO 11/14/21 1547 [facility] [employer] Other XR foot RT min 3V* Signed By: [employer] Other XR foot RT min 3V* 11/14/21 1549 [facility] [employer] Other Progress Noteon 03-16-2018 HIM IP Note OR [employer] Work[employer] Normal [facility] Vital Signs Date Time Vital Sign Value Performing Clinician Facility 09-28-2024 15:27-0500 Body mass index (BMI) [Ratio] 33.36 kg/m2 Tang Everardo DO Work Phone: [facility] 09-28-2024 15:27-0500 Body weight 96.62 kg Tang Everardo DO Work Phone: [facility] 09-28-2024 15:27-0500 Diastolic blood pressure 70 mm[Hg] Tang Everardo DO Work Phone: [facility] 09-28-2024 15:27-0500 Systolic blood pressure 120 mm[Hg] Tang Everardo DO Work Phone: [facility] 09-06-2024 11:06-0500 Body height 170.2 cm Rakesh Thompson PA-C Work Phone: [facility] 09-06-2024 11:06-0500 Body mass index (BMI) [Ratio] 33.67 kg/m2 Rakesh Thompson PA-C Work Phone: [facility] 09-06-2024 11:06-0500 Body weight 97.52 kg Rakesh Allenay PA-C Work Phone: [facility] 04-26-2024 11:55-0400 Diastolic blood pressure 67 mm[Hg] Ashley Shah MD Work Phone: [facility] 04-26-2024 11:55-0400 Heart rate 75 /min Ashley Shah MD Work Phone: [facility] 04-26-2024 11:55-0400 Respiratory rate 24 /min Ashley Shah MD Work Phone: [facility] 04-26-2024 11:55-0400 SaO2% (BldA) [Mass fraction] 100 % Ashley Shah MD Work Phone: [facility] 04-26-2024 11:55-0400 Systolic blood pressure 111 mm[Hg] Ashley Shah MD Work Phone: [facility] 04-26-2024 10:42-0400 Body height 170.2 cm Ashley Shah MD Work Phone: [facility] 04-26-2024 10:42-0400 Body mass index (BMI) [Ratio] 33.67 kg/m2 Ashley Shah MD Work Phone: [facility] 04-26-2024 10:42-0400 Body weight 97.52 kg Ashley Shah MD Work Phone: [facility] 03-11-2024 11:20-0400 Body height 170.2 cm Rakesh Allenay PA-C Work Phone: [facility] 03-11-2024 11:20-0400 Body mass index (BMI) [Ratio] 33.67 kg/m2 Rakesh Allenay PA-C Work Phone: [facility] 03-11-2024 11:20-0400 Body weight 97.52 kg Rakesh Allenay PA-C Work Phone: [facility] 03-11-2024 11:20-0400 Diastolic blood pressure 68 mm[Hg] Rakesh Allenay PA-C Work Phone: [facility] 03-11-2024 11:20-0400 Heart rate 71 /min Rakesh Thompson PA-C Work Phone: [facility] 03-11-2024 11:20-0400 Systolic blood pressure 129 mm[Hg] Rakesh HENRY-Dayna Work Phone: [facility] 02-29-2024 13:15-0400 Body height 172.7 cm Ashley Shah MD Work Phone: [facility] 02-29-2024 13:15-0400 Body mass index (BMI) [Ratio] 32.69 kg/m2 Ashley Shah MD Work Phone: [facility] 02-29-2024 13:15-0400 Body weight 97.52 kg Ashley Shah MD Work Phone: [facility] 02-29-2024 13:15-0400 Diastolic blood pressure 69 mm[Hg] Ashley Shah MD Work Phone: [facility] 02-29-2024 13:15-0400 Heart rate 76 /min Ashley Shah MD Work Phone: [facility] 02-29-2024 13:15-0400 Systolic blood pressure 101 mm[Hg] Ashley Shah MD Work Phone: [facility] 02-19-2024 11:20-0400 Body height 170.2 cm Rakesh HENRY-C Work Phone: [facility] 02-19-2024 11:20-0400 Body weight 96.16 kg Rakesh HENRY-C Work Phone: [facility] 02-15-2024 15:56-0400 Body height 172.09 cm [facility] 02-15-2024 15:56-0400 Body mass index (BMI) [Ratio] 33.7 kg/m2 [facility] 02-15-2024 15:56-0400 Body temperature 98.3 [degF] [facility] 02-15-2024 15:56-0400 Body weight 99.79 kg [facility] 02-15-2024 15:56-0400 Heart rate 87 /min [facility] 02-15-2024 15:56-0400 Respiratory rate 18 /min [facility] 02-15-2024 15:56-0400 SaO2% (BldA) [Mass fraction] 96 % [facility] 03-10-2023 10:03-0400 Body height 170.2 cm Rakesh Thompson PA-C Work Phone: [facility] 03-10-2023 10:03-0400 Body weight 96.16 kg Rakeshcecil Thompson [employer] Work Phone: [facility] 09-26-2022 15:05-0500 Body height 175.26 cm José Miguel Fuentes Other [employer] Other 09-26-2022 15:05-0500 Body mass index (BMI) [Ratio] 30.86 kg/m2 José Miguel Fuentes Other [employer] Other 09-26-2022 15:05-0500 Body temperature 98.4 [degF] José Miguel Fuentes Other [employer] Other 09-26-2022 15:05-0500 Body weight 94.8 kg José Miguel Fuentes Other [employer] Other 09-26-2022 15:05-0500 Diastolic blood pressure 65 mm[Hg] José Miguel Fuentes Other [employer] Other 09-26-2022 15:05-0500 Respiratory rate 18 /min José Miguel Fuentes Other [employer] Other 09-26-2022 15:05-0500 SaO2% (BldA) [Mass fraction] 97 % José Miguel Fuentes Other [employer] Other 09-26-2022 15:05-0500 Systolic blood pressure 110 mm[Hg] José Miguel Fuentes Other [employer] Other 02-06-2022 11:30-0400 Body height 175.26 cm Armand Camposxa Other [employer] Other 02-06-2022 11:30-0400 Body mass index (BMI) [Ratio] 29.53 kg/m2 Armand Olexa Other [employer] Other 02-06-2022 11:30-0400 Body weight 90.72 kg Armand Camposxa Other [employer] Other 11-14-2021 15:20-0500 Body height 175.26 cm José Miguel Beltran Other [employer] Other 11-14-2021 15:20-0500 Body mass index (BMI) [Ratio] 29.89 kg/m2 José Miguel Beltran Other [employer] Other 11-14-2021 15:20-0500 Body temperature 97.3 [degF] José Miguel Beltran Other [employer] Other 11-14-2021 15:20-0500 Body weight 91.81 kg José Miguel Beltran Other [employer] Other 11-14-2021 15:20-0500 Diastolic blood pressure 78 mm[Hg] José Miguel Beltran Other [employer] Other 11-14-2021 15:20-0500 Respiratory rate 18 /min José Miguel Beltran Other [employer] Other 11-14-2021 15:20-0500 SaO2% (BldA) [Mass fraction] 97 % José Miguel Beltran Other [employer] Other 11-14-2021 15:20-0500 Systolic blood pressure 130 mm[Hg] José Miguel Beltran Other [employer] Other Encounters Encounter Date Encounter Type Care Provider Facility Start: 10-03-2024 End: 10-03-2024 Bamboo flowsheet Tang Everardo DO Work Phone: [facility] Start: 10-03-2024 End: 10-03-2024 Bamboo flowsheet Tang Everardo DO Work Phone: [facility] Start: 09-28-2024 End: 09-28-2024 Office outpatient visit 15 minutes Tang Everardo DO Work Phone: [facility] Comment on above: Yeast infection; UTI symptoms Start: 09-28-2024 End: 09-28-2024 ambulatory TANG EVERARDO Not Available Start: 09-28-2024 End: 09-28-2024 Bamboo flowsheet Tang Everardo DO Work Phone: [facility] Start: 09-28-2024 End: 09-28-2024 Bamboo flowsheet Tang Everardo DO Work Phone: [facility] Start: 09-09-2024 ambulatory Sukumar Howell acility:[facility] Start: 09-06-2024 End: 09-06-2024 ambulatory HUGO MENDEZ Facility:[facility] Start: 09-06-2024 End: 09-06-2024 Patient encounter procedure Rakesh Thompson PA-C Work Phone: [facility] Comment on above: Chronic midline low back pain with bilateral sciatica (Primary Dx); Lumbar spondylosis; Paresthesias; Neck pain; Falls frequently; Vision changes; Other chronic pain Start: 09-05-2024 End: 09-05-2024 Refill Ashley Shah MD Work Phone: Ambulatory Surgery Comment on above: Refill Request (Levs in) Start: 08-01-2024 End: 08-01-2024 Refill Ashley Shah MD Work Phone: Ambulatory Surgery Comment on above: Refill Request Start: 07-28-2024 End: 07-28-2024 Refill Ashley Shah MD Work Phone: Ambulatory Surgery Comment on above: Refill Request (Evelia fate) Start: 07-27-2024 End: 07-27-2024 ambulatory Nella Gill PT Work Phone: [facility] Comment on above: Chronic midline low back pain without sciatica (Primary Dx) Start: 07-08-2024 End: 07-08-2024 ambulatory Angelic Pope PT Work Phone: [facility] Comment on above: Chronic midline low back pain without sciatica (Primary Dx) Start: 06-26-2024 End: 06-27-2024 Refill Ashley Shah MD Work Phone: Ambulatory Surgery Comment on above: Refill Request (Evelia fate) Start: 06-17-2024 End: 06-17-2024 ambulatory Nella Gill PT Work Phone: [facility] Comment on above: Chronic midline low back pain without sciatica (Primary Dx) Start: 06-16-2024 End: 06-16-2024 ambulatory TANG IRWINO Not Available Start: 05-27-2024 End: 05-27-2024 ambulatory Nella Gill PT Work Phone: [facility] Comment on above: Chronic midline low back pain without sciatica (Primary Dx); Lumbar spondylosis; Chronic bilateral low back pain with bilateral sciatica; Pain in right hip Start: 05-19-2024 ambulatory Rakesh ortiz PA-C Work Phone: [facility] Start: 05-19-2024 Patient encounter procedure Rakesh Thompson PA-C Work Phone: [facility] Comment on above: My cancelled appoint ment Start: 04-27-2024 Telephone encounter Ashley mckeon MD Work Phone: Gastroenterology Comment on above: Insurance Authorizat ion ([place] nexium) Start: 04-26-2024 End: 04-26-2024 ambulatory HUGO MENDEZ Facility:[facility] Start: 04-26-2024 End: 04-26-2024 Subsequent hospital visit by physician Ashley Shah MD Work Phone: Ambulatory Surgery Comment on above: Gastroesophageal ref lux disease with esophagitis without hemorrhage [K21.00] Start: 04-25-2024 Admission to [facility] Ashley Shah MD Work Phone: Ambulatory Surgery Start: 04-25-2024 ambulatory Ashley Shah MD Work Phone: Ambulatory Surgery Start: 03-21-2024 End: 03-21-2024 ambulatory ASHLEY SHAH Facility:[facility] Start: 03-21-2024 End: 03-21-2024 Subsequent hospital visit by physician [facility] Mary Kate Work Phone: Radiology Comment on above: Chronic abdominal pa in [R10.9, G89.29] Start: 03-18-2024 End: 03-18-2024 ambulatory Dunia Aranda PT, DPT Work Phone: [facility] Comment on above: S/P cervical spinal fusion; Left arm weakness; Neck pain; Numbness and tingling in both hands; Pain in both hands Start: 03-11-2024 End: 03-11-2024 ambulatory HUGO MENDEZ Facility:[facility] Start: 03-11-2024 End: 03-11-2024 Patient encounter procedure Rakesh Thompson PA-C Work Phone: [facility] Comment on above: Lumbar spondylosis ( Primary Dx); Chronic bilateral low back pain with bilateral sciatica; Pain in right hip Start: 02-29-2024 End: 02-29-2024 ambulatory HUGO MENDEZ Facility:[facility] Start: 02-29-2024 End: 02-29-2024 ambulatory FORRESTRoslyn DEBBIESCKannan Facility:[facility] Start: 02-29-2024 End: 02-29-2024 Patient encounter procedure Ashley Shah MD Work Phone: Gastroenterology Comment on above: Chronic abdominal pa in (Primary Dx); Gastroesophageal reflux disease with esophagitis without hemorrhage; Nausea; PUD (peptic ulcer disease); Rectal bleeding; Irritable bowel syndrome with both constipation and diarrhea Start: 02-19-2024 End: 02-19-2024 ambulatory RAKESH THOMPSON Facility:[facility] Start: 02-19-2024 End: 02-19-2024 Subsequent hospital visit by physician Xr [facility] Work Phone: Radiology Comment on above: Chronic bilateral lo w back pain with right-sided sciatica [M54.41, G89.29] Start: 02-19-2024 End: 02-19-2024 ambulatory HUGO MENDEZ Facility:[facility] Start: 02-19-2024 End: 02-19-2024 Patient encounter procedure Rakesh Thompson PA-C Work Phone: [facility] Comment on above: Left arm weakness (P rimary Dx); Neck pain; Numbness and tingling in both hands; Pain in both hands; S/P cervical spinal fusion; Chronic bilateral low back pain with right-sided sciatica Start: 02-15-2024 End: 02-15-2024 ambulatory NON STAFF [facility] Work Phone: Start: 02-15-2024 End: 02-15-2024 Patient encounter procedure [facility] Work Phone: Start: 04-20-2023 End: 04-20-2023 Subsequent hospital visit by physician [employer] (Lg Bore/3t) Radiology Comment on above: Radiculopathy, cervi michael region [M54.12] Start: 04-08-2023 Telephone encounter Rakesh mas PA-C Work Phone: [facility] Comment on above: Results Start: 04-03-2023 End: 04-03-2023 ambulatory Emg 1000) Work Phone: Neurology Comment on above: EMG Start: 04-03-2023 End: 04-03-2023 Patient encounter procedure Emg 4 Neur Main (Max Weight: 1000) Work Phone: [facility] Start: 03-25-2023 End: 03-25-2023 Subsequent hospital visit by physician Ct [facility] Work Phone: Radiology Comment on above: Radiculopathy, cervi michael region [M54.12] Start: 03-10-2023 End: 03-10-2023 Patient encounter procedure Rakesh Thompson PA-C Work Phone: [facility] Comment on above: Radiculopathy, cervi michael region (Primary Dx); S/P cervical spinal fusion; Numbness and tingling in left arm; Spasm of muscle Start: 03-08-2023 End: 03-08-2023 ambulatory KELLEE CANO Facility:[facility] Start: 03-02-2023 End: 03-03-2023 ambulatory FLOWER MCDERMOTT Facility:[facility] Start: 02-17-2023 ambulatory Suresh HERNANDEZ Facility : [facility] Start: 02-02-2023 End: 02-02-2023 ambulatory FLOWER MCDERMOTT Facility:[facility] Start: 01-31-2023 End: 02-01-2023 ambulatory FLOWER MCDERMOTT Facility:[facility] Start: 12-31-2022 End: 02-05-2023 ambulatory FLOWER MCDERMOTT Facility:[facility] Start: 11-27-2022 End: 11-27-2022 ambulatory ELAINE LUCAS . Facility:[facility] Start: 11-07-2022 End: 11-08-[address] TANG MCGEE . Facility:[facility] Start: 09-26-2022 End: 09-26-2022 ambulatory José Miguel Fuentes Other [employer] Other Start: 09-26-2022 Office outpatient vi sit 15 minutes José Miguel Fuentes [facility] Start: 09-03-2022 End: 09-04-[address] DANIS BERGER Facility:[facility] Start: 09-02-2022 End: 09-03-[address] DANIS BERGER Facility:[facility] Start: 05-22-2022 End: 05-23-[address] DANIS BERGER Facility:[facility] Start: 04-22-2022 End: 04-22-[address] TANG MCGEE . Facility:[facility] Start: 04-16-2022 End: 05-17-2022 ambulatory FLOWER MCDERMOTT Facility:[facility] Start: 04-14-2022 End: 04-15-[address] PATIENCE HERNANDEZ Facility:[facility] Start: 04-09-2022 End: 04-09-2022 ambulatory FLOWER MCDERMOTT Facility:[facility] Start: 04-04-2022 End: 04-05-[address] PATIENCE HERNANDEZ Facility:[facility] Start: 03-30-2022 End: 03-30-2022 ambulatory NORAH Arita Facility:[facility] Start: 02-06-2022 End: 02-06-2022 ambulatory Armand De Paz Other [employer] Other Start: 02-06-2022 Office outpatient ne w 30 minutes Armand De Paz [facility] Start: 11-14-2021 End: 11-14-2021 ambulatory José Miguel Beltran Other [employer] Other Start: 11-14-2021 Office outpatient vi sit 15 minutes José Miguel Beltran [facility] Start: 03-01-2018 End: 03-02-2018 [facility] Procedures Date Procedure Procedure Detail Performing Clinician Start: 09-28-2024 Urnls dip stick/tablet rgnt non-auto w/o micrscp Tang Mcgee DO Work Phone: Start: 04-26-2024 Colonoscopy flx dx w/collj spec [...] contrast material Rakesh Thompson PA-C Work Phone: Start: 11-07-2022 Mammography Tangángel Mcgee DO Work Phone: Plan of Treatment Date Care Activity Detail Author Start: 04-26-2034 Screening for malignant neoplasm of colon [facility] Start: 04-02-2029 Screening for malignant neoplasm of colon [facility] Start: 02-28-2027 Diabetes Screening Diabetes Screening [facility] Start: 07-25-2026 Urine microalbumin profile DTaP,Tdap,Td Vaccine (2 - Td or Tdap) [facility] Start: 10-28-2024 End: 10-28-2024 Patient encounter procedure 10/28/2024 2:00 PM EST Office Visit Neurology [facility] [address] [place] [address] [place] [address] [place] [address] Falls frequently [R29.6]; Vision changes [H53.9]; Paresthesias [R20.2] Neurology [facility] Comment on above: Falls frequently [R29.6]; Vision changes [H53.9]; Paresthesias [R20.2] Start: 10-07-2024 End: 10-07-2024 Patient encounter procedure 10/07/2024 8:00 AM EST Office Visit [facility] [address] [place] [address] Rakesh Thompson PA-C [address] [place] [address] Rosao wup after MRi [facility] Comment on above: Follo wup after MRi Start: 10-03-2024 End: 10-03-2024 Patient encounter procedure Radiology Comment on above: Chronic midline low back pain with bilat eral sciatica [M54.41, M54.42, G89.29]; Lumbar spondylosis [M47.816]; Paresthesias [R20.2] Arrived Start: 09-30-2024 End: 09-30-2024 Patient encounter procedure 09/30/2024 2:00 PM EST Office Visit Neurology Pain [address] [place] [address] Sophie Turcios PA-C [address] [place] [address] Chronic midline low back pain with bilateral sciatica [M54.41, M54.42, G89.29]; Lumbar spondylosis [M47.816]; Neck pain [M54.2]; Other chronic pain [G89.29] Neurology [facility] Comment on above: Chronic midline low back pain with bilat eral sciatica [M54.41, M54.42, G89.29]; Lumbar spondylosis [M47.816]; Neck pain [M54.2]; Other chronic pain [G89.29] Start: 09-28-2024 End: 09-28-2024 Patient encounter procedure 09/28/2024 2:50 PM EST Office Visit [facility] [address] [place] [address] Tang Mcgee DO [address] [place] [address] Arrived [facility] Comment on above: Arrived Start: 09-06-2024 End: 09-06-2024 Patient encounter procedure 09/06/2024 11:15 AM EST Office Visit [facility] [address] [place] [address] Rakesh Thompson PA-C [address] [place] [address] Neck and back pt follow up [facility] Comment on above: Neck and back pt follow up Start: 07-27-2024 End: 07-27-2024 ambulatory 07/27/2024 3:45 PM EDT OT/PT/Speech Visit [facility] [address] [address] Nella Dupont, PT [address] [place] [address] hip and back [facility] Comment on above: hip and back Start: 07-19-2024 End: 07-19-2024 ambulatory 07/19/2024 6:00 PM EDT OT/PT/Speech Visit [facility] [address] [place] [address] Dunia Aranda, PT, DPT [address] [place] [address] hip and back [facility] Comment on above: hip and back Start: 07-08-2024 End: 07-08-2024 ambulatory 07/08/2024 1:45 PM EDT OT/PT/Speech Visit [facility] [address] [place] [address] Angelic Pope, PT [address] [address] hip and back [facility] Comment on above: hip and back Start: 07-03-2024 Covid-19 Vaccine ( season) Covid-19 Vaccine ( season) [facility] Start: 07-03-2024 Covid-19 Vaccine ( season) Covid-19 Vaccine ( season) [facility] Start: 07-03-2024 Influenza vaccination [facility] Start: 06-17-2024 End: 06-17-2024 ambulatory 06/17/2024 3:30 PM EDT OT/PT/Speech Visit [facility] [address] [place] [address] Nella Dupont, PT [address] [address] 12/10 visit hip and back [facility] Comment on above: 12/10 visit hip and back Start: 05-27-2024 End: 05-27-2024 ambulatory [facility] Comment on above: Pain 11/09 visits Pain Pain issues Start: 05-20-2024 End: 05-20-2024 Patient encounter procedure 05/20/2024 11:15 AM EDT Office Visit [facility] [address] [place] [address] Rakesh Thompson PA-C [address] [place] [address] follow up after PT course [facility] Comment on above: follow up after PT course Start: 04-26-2024 End: 04-26-2024 Patient encounter procedure 04/26/2024 10:45 AM EDT Appointment Ambulatory Surgery [address] [place] [address] [place] [address] [place] [id number] Rectal bleeding [K62.5] Ambulatory Surgery Comment on above: Rectal bleeding [K62.5] Start: 04-12-2024 End: 04-12-2024 Anesthesia consultation 04/12/2024 11:59 PM EDT Anesthesia Event Ambulatory Surgery [address] [place] [address] Og Farrell APRN.CRNA Ambulatory Surgery Start: 04-05-2024 End: 04-05-2024 ambulatory 04/05/2024 4:30 PM EDT OT/PT/Speech Visit [facility] [address] [place] [address] Dunia Aranda, PT, DPT [address] [facility] [place] [address] S/P cervical spinal fusion [Z98.1] [facility] Comment on above: S/P cervical spinal fusion [Z98.1] Start: 03-21-2024 End: 03-21-2024 Patient encounter procedure Radiology Comment on above: Chronic abdominal pain [R10.9, G89.29] Start: 03-18-2024 End: 03-18-2024 ambulatory 03/18/2024 2:00 PM EDT OT/PT/Speech Visit [facility] [address] [place] [address] Dunia Aranda, PT, DPT [address] [place] [address] S/P cervical spinal fusion [Z98.1] [facility] Comment on above: S/P cervical spinal fusion [Z98.1] Start: 03-11-2024 End: 03-11-2024 Patient encounter procedure 03/11/2024 11:15 AM EDT Office Visit [facility] [address] [place] [address] Rakesh Thompson PA-C [address] [place] [address] low back pain [facility] Comment on above: low back pain Start: 02-29-2024 End: 05-30-2024 ENDOMYSIAL ANTIBODY, [facility] Comment on above: Expected: 02/29/2024, Expires: Start: 02-29-2024 End: 05-30-2024 Endomysium IgA Ab [Titer] in Serum by Immunofluorescence [facility] Comment on above: Expected: 02/29/2024, Expires: Start: 02-29-2024 End: 05-30-2024 GLIADIN (DEAMINATED) ABS [facility] Comment on above: Expected: 02/29/2024, Expires: 4 Start: 02-29-2024 End: 05-30-2024 Tissue transglutaminase IgA Ab [Units/volume] in Serum [facility] Comment on above: Expected: 02/29/2024, Expires: 4 Start: 02-29-2024 End: 05-30-2024 Tissue transglutaminase IgG Ab [Units/volume] in Serum [facility] Comment on above: Expected: 02/29/2024, Expires: 4 Start: 11-07-2023 Screening for malignant neoplasm of breast Mammogram [facility] Start: 11-02-2023 Behavioral Health Screening Behavioral Health Screening [facility] Start: 09-02-2023 Screening for malignant neoplasm of breast Mammogram Screening [facility] Start: 07-03-2023 Covid-19 Vaccine ( season) Covid-19 Vaccine () [facility] Start: 07-03-2023 Influenza vaccination INFLUENZA (Season Ended) [facility] Start: 03-23-2023 ambulatory Ambulatory Facility: Start: 11-02-2022 DEPRESSION ASSESSMENT DEPRESSION ASSESSMENT [facility] Start: 03-30-2021 COVID-19 VACCINE (2 - Booster for Moderna series) COVID-19 VACCINE (2 - Booster for Moderna series) [facility] Start: 2021 COLOGUARD (FIT-DNA) COLOGUARD (FIT-DNA) [facility] Start: 2021 Colonoscopy COLONOSCOPY [facility] Start: 2021 COLORECTAL CANCER SCREENING COLORECTAL CANCER SCREENING [facility] Start: [address] COLONOGRAPHY [facility] Start: 2021 DIABETES SCREEN DIABETES SCREEN [facility] Start: 2021 Diabetes Screening Diabetes Screening [facility] Start: 2021 FECAL OCCULT BLOOD FECAL OCCULT BLOOD [facility] Start: 2021 Lipid panel Lipid Screening [facility] Start: 2021 LIPID SCREEN LIPID SCREEN [facility] Start: 2021 Screening for malignant neoplasm of colon [facility] Start: 2021 SIGMOIDOSCOPY SIGMOIDOSCOPY [facility] Start: 2016 Mammography MAMMOGRAM [facility] Start: 2006 HPV TESTING HPV TESTING [facility] Start: 2006 Screening for malignant neoplasm of cervix [facility] Start: 1997 PAP TESTING PAP TESTING [facility] Start: 1997 Screening for malignant neoplasm of cervix [facility] Start: 1995 Hepatitis B Vaccine (1 of 3 - 19+ 3-dose series) Hepatitis B Vaccine (1 of 3 - 19+ 3-dose series) [facility] Start: 1995 Urine microalbumin profile DTAP,TDAP,TD (1 - Tdap) [facility] Start: 1994 Anxiety Screening Anxiety Screening [facility] Start: 1994 Depression Screening Depression Screening [facility] Start: 1994 HEPATITIS C SCREENING HEPATITIS C SCREENING [facility] Start: 1994 Hepatitis C screening Hepatitis C Screening [facility] Start: 1994 HIV SCREENING HIV SCREENING [facility] Start: 1994 HIV screening HIV Screening [facility] Start: 1976 COVID-19 VACCINE (#1) COVID-19 VACCINE (#1) [facility] Start: 1976 HEPATITIS B (1 of 3 - 3-dose series) HEPATITIS B (1 of 3 - 3-dose series) [facility] Start: 1976 Screening for malignant neoplasm of colon [facility] Bacteria identified in Urine by Culture Urine culture Microbiology Routine UTI symptoms Ordered: 09/28/2024 [facility] Work Phone: Comment on above: Ordered: 09/28/2024 Calprotectin [Mass/m ass] in Stool CALPROTECTIN,FECAL Lab Routine Irritable bowel syndrome with both constipation and diarrhea Ordered: 02/29/2024 [facility] Comment on above: Ordered: 02/29/2024 Clostridioides diffi cile toxin genes [Presence] in Stool by TINO with probe detection C. DIFFICILE PCR Lab Routine Irritable bowel syndrome with both constipation and diarrhea Ordered: 02/29/2024 [facility] Comment on above: Ordered: 02/29/2024 End: 03-30-2025 CT Abdomen and Pelvis W contrast IV CT ABD/PEL W IVCON Radiology Routine Chronic abdominal pain Nausea 1 Occurrences starting 02/29/2024 until 03/30/2025 [facility] Work Phone: Comment on above: 1 Occurrences starting 02/29/2024 until 03/30/2025 End: 04-08-2024 Ct cervical spine w/o contrast material CT CERVICAL SPINE WO IVCON Radiology Routine Radiculopathy, cervical region S/P cervical spinal fusion Numbness and tingling in left arm Spasm of muscle 1 Occurrences starting 03/10/2023 until 04/08/2024 [facility] Work Phone: Comment on above: 1 Occurrences starting 03/10/2023 until 04/08/2024 End: 02-28-2025 EGD DIAGNOSTIC EGD DIAGNOSTIC Endoscopy Routine Gastroesophageal reflux disease with esophagitis without hemorrhage Nausea PUD (peptic ulcer disease) 1 Occurrences starting 02/29/2024 until 02/28/2025 [facility] Comment on above: 1 Occurrences starting 02/29/2024 until 02/28/2025 End: 03-10-2024 EMG(NEURO/NI) EMG(NEURO/NI) EMG Routine Radiculopathy, cervical region Numbness and tingling in left arm Spasm of muscle 1 Occurrences starting 03/10/2023 until 03/10/2024 [facility] Work Phone: Comment on above: 1 Occurrences starting 03/10/2023 until 03/10/2024 FAT, FECAL QUAL FAT, FECAL QUAL Lab Routine Irritable bowel syndrome with both constipation and diarrhea Ordered: 02/29/2024 [facility] Comment on above: Ordered: 02/29/2024 End: 02-28-2025 Flexible sigmoidoscopy study COLONOSCOPY DIAGNOSTIC Endoscopy Routine Rectal bleeding Irritable bowel syndrome with both constipation and diarrhea 1 Occurrences starting 02/29/2024 until 02/28/2025 [facility] Comment on above: 1 Occurrences starting 02/29/2024 until 02/28/2025 End: 10-06-2025 MR Lumbar spine WO contrast MRI LUMBAR SPINE WO IVCON Radiology Routine Chronic midline low back pain with bilateral sciatica Lumbar spondylosis Paresthesias 1 Occurrences starting 09/06/2024 until 10/06/2025 [facility] Work Phone: Comment on above: 1 Occurrences starting 09/06/2024 until 10/06/2025 End: 04-08-2024 Mri spinal canal cervical w/o contrast matrl MRI CERVICAL SPINE WO IVCON Radiology Routine Radiculopathy, cervical region S/P cervical spinal fusion Numbness and tingling in left arm Spasm of muscle 1 Occurrences starting 03/10/2023 until 04/08/2024 [facility] Work Phone: Comment on above: 1 Occurrences starting 03/10/2023 until 04/08/2024 PANC ELASTASE, FECAL PANC ELASTA SE, FECAL Lab Routine Irritable bowel syndrome with both constipation and diarrhea Ordered: 02/29/2024 [facility] Comment on above: Ordered: 02/29/2024 [facility] Immunizations Immunization Date Immunization Notes Care Provider Donna kramer 08-04-2016 influenza virus vacc ine, unspecified formulation Rakesh Thompson PA-C Work Phone: [facility] Payers Date Payer Category Payer Self-pay [id number] 2022 Medicaid [facility] MEDIC AID [facility] MEDICAID [id number] 2022-Present [phone] [address] [place] [address] Medicaid [id number] 2021 Private Health Insurance [facility] MEDICAID [id number] 1976 Unknown [id number] ..[id number]. 727 1976 Unknown [id number] 2.16.840.1.109080.3.579.2. 593 1976 Unknown [id number] 2.16.840.1.979148.3.579.2. 593 1976 Unknown [id number] 2.16.840.1.561169.3.579.2. 593 1976 Unknown [id number] 2.16.840.1.131492.3.579.2. 593 1976 Unknown [id number] 2.16.840.1.723234.3.579.2. 593 1976 Unknown [id number] 2.16.840.1.224970.3.579.2. 593 1976 Unknown [id number] 2.16.840.1.343137.3.579.2. 593 1976 Unknown [id number] 2.16.840.1.452569.3.579.2. 593 1976 Unknown [id number] 2.16.840.1.931732.3.579.2. 593 1976 Unknown [id number] 2.16.840.1.125907.3.579.2. 593 1976 Unknown [id number] 2.16.840.1.632296.3.579.2. 593 1976 Unknown [id number] 2.16.840.1.504264.3.579.2. 593 1976 Unknown [id number] 2.16.840.1.126721.3.579.2. 593 1976 Unknown [id number] 2.16.840.1.042107.3.579.2. 593 1976 Unknown [id number] 2.16.840.1.710424.3.579.2. 593 1976 Unknown [id number] 2.16.840.1.439688.3.579.2. 593 1976 Unknown [id number] 2.16.840.1.644026.3.579.2. 593 1976 Unknown [id number] 2.16.840.1.589301.3.579.2. 1259 1976 Unknown [id number] 2.16.840.1.033560.3.579.2. 1259 1959 Unknown [id number] 1959 Unknown [id number] Unknown [id number] 2.16.840.1.812133.3.579.2. 531 Unknown [id number] 2.16.840.1.581608.3.579.2. 531 Social History Date Type Detail Facility Unknown if ever smoked [employer] Other Start: 02-18-2024 End: 06-16-2024 Sex Assigned At [facility] Tobacco smoking stat us [facility] Tobacco smoking consumption unknown [facility] Work Phone: Start: 1975 Sex Assigned At Not on file [facility] Start: 03-24-2023 End: 04-03-2023 Exposure to SARS-CoV-2 (event) Not sure [facility] Start: 02-15-2024 End: 06-16-2024 Tobacco smoking status UTIS Ex-smoker (finding) [facility] Start: 1975 Sex Assigned At Female [facility] Start: 02-18-2024 End: 06-16-2024 History of Social function [facility] Adult Depression Screening Assessment 2 [facility] Start: 02-18-2024 Gender identity Identifies as female gender (finding) [facility] Start: 02-18-2024 Sexual orientation Homosexual (finding) [facility] End: 2023 History of tobacco use Current smoker [facility] End: 2023 History of tobacco use Cigarette Smoker [facility] Start: 02-29-2024 End: 06-16-2024 Tobacco use and exposure Smokeless tobacco non-user [facility] Start: 02-29-2024 End: 09-28-2024 Alcohol intake Ex-drinker (finding) [facility] Start: 05-30-2023 Tobacco Comment Patient smokes 11-20 cigarettes/day after 6-30 minutes of waking up.Thinking about quitting. [facility] Start: 05-30-2023 Alcohol Comment Caffeine: 5-6 cups/day coffee [facility] Clinical Notes 11-14-2021 to 09-28-2024 Ekta Olson, ALEJANDRA - 09/28/2024 2:50 PM Rakesh Bahena PA-C - 09/06/2024 11:15 AM ESTTelephone Encounter - Yadira Ramírez, MA - 09/05/2024 9:09 AM Angelic Gunter PT - 07/08/2024 2:36 PM EDT Note Date & Type Note Facility 09-28-2024 History of Present illness Narrative Reason for Appointment: Patient ID: Lana Montague is a 49 y.o. female who presents for Vaginitis/Bacterial Vaginosis and UTI concerns Patient presents today for Acute Visit. MEDICATIONS Current Outpatient Medications Medication Instructions buPROPion XL (WELLBUTRIN XL) 150 mg, Daily clonazePAM (KLONOPIN) 1 mg, 2 times daily PRN esomeprazole (NEXIUM) 40 mg, Daily hyoscyamine (LEVSIN) 0.125 mg, Every 6 hours PRN oxybutynin XL (DITROPAN-XL) 15 mg, Daily sertraline (ZOLOFT) 100 mg, Oral, Every morning ALLERGIES Allergies Allergen Reactions Azithromycin nausea Levofloxacin Swelling Joint swelling Levofloxacin In D5w Swelling of the joints Nsaids Other Stomach upset , GI Issues, bleeding Orphenadrine Rapid heartbeat, nausea, jittery Sulfamethoxazole-Trimethoprim itching Tizanidine Hcl Wound Dressing Adhesive Itching PROBLEMS Active Ambulatory Problems Diagnosis Date Noted Bacterial vaginal infection 06/16/2024 Pelvic pain in female 06/16/2024 Yeast infection 06/16/2024 Resolved Ambulatory Problems Diagnosis Date Noted No Resolved Ambulatory Problems Past Medical History: Diagnosis Date Abnormal Pap smear of cervix Bacterial vaginosis Fibrocystic breast HPV (human papilloma virus) infection Ovarian cyst Urinary incontinence Urinary tract infection HISTORY PAST MEDICAL HISTORY SOCIAL HISTORY Past Medical History: Diagnosis Date Abnormal Pap smear of cervix Bacterial vaginosis Fibrocystic breast HPV (human papilloma virus) infection Ovarian cyst Urinary incontinence Urinary tract infection Social History Tobacco Use Smoking status: Former Current packs/day: 0.00 Types: Cigarettes Quit date: 2023 Years since quittin.5 Smokeless tobacco: Never Tobacco comments: Patient smokes 11-20 cigarettes/day after 6-30 minutes of waking up. Thinking about quitting. Substance Use Topics Alcohol use: Not Currently Comment: Caffeine: 5-6 cups/day coffee Drug use: Yes Types: Marijuana FAMILY HISTORY Family History Problem Relation Name Age of Onset Asthma Mother Stephanie Diabetes Mother Stephanie Heart failure Mother Stephanie Hypertension Mother Stephanie Cancer Father Mateusz Hypertension Father Mateusz Lung cancer Father Mateusz Cancer Sister Saba lara Ovarian cancer Sister Kylee Rashes / Skin problems Sister Kylee Breast cancer Mother's Sister Vandana Lung cancer Mother's Sister Vandana Stroke Maternal Grandfather Harvey SURGICAL HISTORY Past Surgical History: Procedure Laterality Date BREAST BIOPSY 01/2021 CERVICAL BIOPSY W/ LOOP ELECTRODE EXCISION COLONOSCOPY 01/2021 COLPOSCOPY HYSTERECTOMY OTHER SURGICAL HISTORY 01/2021 Endoscopy REVIEW OF SYSTEMS Review of Systems: Review of Systems Constitutional: Negative. HENT: Negative. Eyes: Negative. Respiratory: Negative. Cardiovascular: Negative. Gastrointestinal: Negative. Genitourinary: Negative. Musculoskeletal: Negative. Skin: Negative. Neurological: Negative. All other systems reviewed and are negative. Hematological: Negative. Endocrine: Negative. Allergic/Immunologic: Negative. OBJECTIVE Objective: Physical Exam Constitutional: Appearance: Normal appearance. She is well-developed. Cardiovascular: Rate and Rhythm: Normal rate and regular rhythm. Pulmonary: Effort: Pulmonary effort is normal. Breath sounds: Normal breath sounds. Abdominal: General: Bowel sounds are normal. There is no distension. Palpations: Abdomen is soft. Tenderness: There is no abdominal tenderness. There is no guarding or rebound. Musculoskeletal: General: No swelling. Normal range of motion. Right lower leg: No edema. Left lower leg: No edema. Neurological: Mental Status: She is alert and oriented to person, place, and time. Skin: General: Skin is warm and dry. Psychiatric: Mood and Affect: Mood normal. Behavior: Behavior normal. Vitals and nursing note reviewed. Exam conducted with a ammonia box operator present. Vitals: Estimated body mass index is 33.36 kg/m as calculated from the following: Height as of 06/16/24: 5' 7 . Weight as of this encounter: 213 lb. BP: 120/70 No LMP recorded. Patient has had a hysterectomy. ASSESSMENT & PLAN ICD-10-CM 1. Yeast infection B37.9 2. UTI symptoms R39.9 POCT urinalysis dipstick manually resulted Pt presents with UTI symptoms and recurrent yeast infections. Pt had E coli contaminated UTI. Pt did take keflex- discussed adding keflex 500 daily for 6 weeks. Pt given order for UA to have obtained in 7 weeks. Documented by Ekta Olson LPN on behalf of: Tang Mcgee DO documented in this encounter [facility] 09-06-2024 History of Present illness Narrative Images from the original note were not included. [facility] Low back pain - chronic follow up Exam SUBJECTIVE HISTORY OF PRESENT ILLNESS: Aurora Montague is a 49 year old female who presents with a chief complaint of low back and leg pain. Here for PT follow up. #1. Low back Change in pain with pain radiating to both legs the past 2 weeks. Using ice at night to help. Pain is located in midline low back. Radiates to bilateral (R>L) lateral hips to lateral thighs. Intermittent pain in bilateral toes or arches of feet. Intermittent tingling in toes. Feels like rubber band around the left thigh. Occasionally waking up with severe pain, cramp throughout the right leg. Right ankle gave out about one week ago. Difficulty going up stairs due to generalized weak sensation, burning in anterior thighs. Reports about 10 falls since last office visit. Trips over nothing or foot slips off the step. Urinary leakage with coughing/sneezing. Otherwise normal sensation and able to use the restroom. Pain ratio: 25% low back vs 75% leg pain #2. Neck Burning pain, stiffness in posterior neck. Mostly constant. No recent radiation. No radiating arm pain. No recent headaches. Sharp, nerve pain in bilateral hands and all the fingers. Comes and goes. Intermittent numbness/tingling in left 2nd and 4th fingers and right 2nd - 4th fingers. States she feels numbness over 90% of her body. Dropping things with both hands since her neck surgery 2016. No longer feeling the left arm weakness. Feeling weakness right shoulder/upper arm for 2-3 weeks when trying to pulling blanket onto herself. Recently had first session EMDR with therapist for PTSD. Vision changes - blurred vision, double vision. Astigmatism. Nicotine use: none Interventions: Medications: Wellbutrin (150mg qAM), Zoloft (100mg qAM), Klonopin (1mg BID) -Previously tried: [place], robaxin, diclofenac 75mg BID ,medrol dose pack (11/27/22), prednisone (01/26/23), naproxen - GI bleed/ulcer -tylenol - no relief -topicals - no relief -stopped NSAIDs due to GI issues Physical therapy: x4 visits 05/27/24-07/27/24 for low back pain, right hip pain -PT x1 visit for neck pain 03/18/24 -completed 4 weeks December 2022 for neck - caused more pain -PT for low back was 2021 at [facility] Previous spine injection history: none - states nervous of injections Previous spine surgery: -11/18/2016 : Anterior cervical C4/5, C5/6, C6/7 discectomy, C5, C6 corpectomy and fusion with iliac strut graft and Invizia plate with Dr. Harvey at [facility] Office visit 03/11/24: Here today for evaluation of her low [...] ordered as well as EGD and colonoscopy. Office visit 02/19/24: Pain is currently 2/10. [...] C6 corpectomy and fusion on 11/18/16 at [facility]. Prior to surgery she had severe pain [...] the face. Seen in ED and prescribed [place] as well as amoxicillin for possible tooth infection. 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 Lots of cervical flexion/extension which aggravates [...] office visit 02/16/23 she was referred to [facility] Neurosurgery for evaluation. Treating providers: --Neurosurgery Dr. [...] considerably related to these findings. PAIN EVALUATION 09/05/20246 09/06/2024 1103 09/06/2024 1106 Pain Level: 8 8 8 Pain Location: Back Back-Lower Back-Lower neck neck Description: Aching;Burning;Contraction;Cramp ing;Pulsating;Radiating;Sharp;Sh ooting;Stabbing;Stiffness;Tightn ess;Tingling Sharp;Radiating;Burning;Stabbing Radiating;Burning;Stabbing;Sharp Duration Amount of Time: 2 2 2 Duration Units: Weeks Weeks Weeks Frequency: Continuous Continuous Continuous Intervention/Comfort measure: -- Exercise;Medication Exercise;Medication Comments: Pain from back is shooting down both legs -- -- Litigation: No Workers' Compensation: No YELLOW & BLUE FLAGS No-Neg Attitude; Back Pain is Disabling No-Avoiding Activity (for Fear of Pain) YES-Depression or Anxiety Disorders No-Social Problems No-Substance Use Disorder No-Job Dissatisfaction No-Financial Disincentives Patient Entered Questionnaires 02/18/2024 03/11/2024 09/05/2024 Spine Questions Pain Location: Neck Lower back Leg Pain Duration: More than 5 years 1 to 5 years Pain over last 6 months: Every day or nearly every day in the past 6 months Every day or nearly every day in the past 6 months Symptoms from neck/cervical spine: Yes Yes Yes Employment Status: Working now Working now Involved in law suit/legal claim: No 02/18/2024 09/05/2024 Spine Red Flags Any type of cancer: No No Unexplained fever: No No Bowel or bladder disfunction: No No Unintentional weight loss: No No Osteoporosis: No No 02/18/2024 09/05/2024 Neck Questionnaires Benzel Modified TAYLOR Score 12 (Moderate Myelopathy Symptoms) Incomplete PROMIS Score Percentiles 05/26/2024 07/19/2024 09/05/2024 Physical Health Physical Function Percentile 14 16* 12 Sleep Percentile 34 Fatigue Percentile 1 Pain Interference Percentile 2 1 02/18/2024 09/05/2024 PROMIS SOCIAL ROLE SCORE Social Role Satisfaction Percentile 12 2 02/18/2024 05/26/2024 09/05/2024 PROMIS Global Health Scale Physical Health Percentile 10 4 Mental Health Percentile 1 1 2 Percentiles provide an indication of how the patient's score ranks in relation to the general population. Higher percentile rankings indicate better function/quality of life. 50th percentile is the average of the general population and indicates half of respondents had a worse score. Depression Screenin02/18/2024 09/05/2024 PHQ-9 Score 11 13 09/05/2024 02/18/2024 PHQ-9 Self Harm Question 9 Not at all Not at all PHQ-9 Self-Harm (Item 9) response options: 0 Not at all 1 Several days 2 More than half the days 3 Nearly every day PHQ-9 Levels: 0-4 No - mild depression 5-9 Mild depression 10-14 Moderate depression 15-19 Moderately severe depression 20-27 Severe depression ACTIVE PROBLEM LIST Chronic Midline Low Back Pain Without Sciatica History reviewed. No pertinent past medical history. PAST SURGICAL HISTORY Procedure Laterality Date BACK SURGERY HX velma c4-c7 decompression and fusion COLONOSCOPY SCREENING EGD DIAGNOSTIC VAGINAL HYSTERECTOMY partial hysterectomy Social History Tobacco Use Smoking status: Former Current packs/day: 0.00 Types: Cigarettes Quit date: 03/23/2023 Years since quittin.4 Smokeless tobacco: Never Vaping Use Vaping status: Never Used Substance Use Topics Alcohol use: Not Currently Drug use: Yes Types: Marijuana Comment: daily FAMILY HISTORY Problem Relation Age of Onset Colon Cancer Paternal Grandfather ALLERGIES Allergen Reactions Morphine Vomiting Nsaids (Non-Steroid* Unknown Stomach upset , GI Issues, bleeding Steroids [Corticost* Unknown PT states Bleeding CURRENT MEDICATIONS: ARIPiprazole (ABILIFY) 15 mg tablet Take 1 tablet by mouth every afternoon. clonazePAM (KLONOPIN) 1 mg tablet Take 1 mg by mouth two times a day as needed for anxiety. For Anxiety buPROPion XL (WELLBUTRIN XL) 150 mg 24 hr tablet Take 150 mg by mouth once daily. hyoscyamine (LEVSIN) 0.125 mg tablet TAKE 1 TABLET BY MOUTH TWO TIMES A DAY AT 6 AM AND 9 PM esomeprazole (NEXIUM) 40 mg capsule Take 1 capsule by mouth two times a day before meals. sertraline (ZOLOFT) 100 mg tablet Take 100 [...] paraspinals at and below belt line. MUSCULOSKELETAL: Cervical Range of Motion Flexion Normal with neck pain Extension Normal RIGHT LEFT Rotation Full ROM without pain Full ROM without pain Upper Body Reflex Exam RIGHT LEFT Reflex Status Reflex Status Biceps 2+ Normal 2+ Normal Triceps 2+ Normal 2+ Normal Brachioradialis 2+ Normal 2+ Normal Santana's Sign absent absent Upper Extremity Strength RIGHT LEFT Strength (MMT) Strength (MMT) Shoulder Abduction 5/5 5/5 Biceps 5/5 5/5 Triceps 5/5 4-/5 Wrist Extension 5/5 5/5 Interossei 5/5 5/5 Shoulder Tests Neer Impingement Sign - negative Extended Low Back & Leg Exam Lumbar Range of Motion Flexion Touches floor Extension Normal with increased low back pain RIGHT LEFT Lateral Bending Limited with left low back pain Full Oblique Extension (facet loading) Within Normal Limits with increased low back pain Within Normal Limits with increased low back pain Leg Raise Straight Leg Raise Negative Negative Contralateral Straight Leg Raise Negative Negative DTRs Knee Normal Normal Ankle Normal Normal Clonus negative Strength of Lower Extremities Hip Flexion 5/5 5/5 Knee Extension 5/5 5/5 Ankle Dorsiflexion 5/5 5/5 Ankle Plantarflexion 5/5 5/5 NEUROSENSORY: Soft touch; Within Normal Limits Data [...] and fusion extending from C4 to C7. Market Editor (topogram) images: No significant findings. Alignment: Alignment [...] axon loss changes in left C7 myotome, [id number] in degree electrically, with significant active/ongoing motor [...] and scarring. Shotty cervical lymph nodes. ASSESSMENT/PLAN (M54.41, M54.42, G89.29) Chronic midline low back pain with bilateral sciatica (primary encounter diagnosis) (M47.816) Lumbar spondylosis (R20.2) Paresthesias (M54.2) Neck pain (R29.6) Falls frequently (H53.9) Vision changes (G89.29) Other chronic pain Continued pain in midline low back to R>L lateral thighs despite completed PT course x4 visits 05/27/24-07/27/24. Recommend lumbar MRI for possible injection planning. Continued pain posterior neck. No recent radicular arm pain. She had a neck specific PT session 03/18/24 and states she was told to continue her HEP since she was already doing the same exercises on her own. She is interested in neurology evaluation for her paresthesias, vision changes, imbalance/falls. States she has a family history of MS. She would like to hold off on further cervical imaging until her evaluation with neurology. Cervical MRI 04/2023 did not show any high grade canal stenosis or cord compression. Cervical spondylosis with varying degrees of foraminal stenosis. History of C4-7 anterior fusion. [facility]iscuss[facility] evaluation with [facility]. 1. Imaging/diagnostics: lumbar MRI 2. Physical therapy: continue HEP 3. Medication: none 4. Referrals: neurology, [facility] 5. Considerations: lumbar TFESI 6. Follow up: office visit after MRI I spent a total of 35 minutes on the date of the service which included preparing to see the patient, [id number] patient care, completing clinical documentation, obtaining and/or reviewing separately obtained history, performing a medically appropriate examination, counseling and educating the patient/family/caregiver, and ordering medications, tests, or procedures. SIGNATURE: Rakesh Thompson PA-C PATIENT NAME: Aurora Montague DATE: September 06, 2024 TIME: 11:15 AM documented in this encounter [facility] 09-06-2024 Note HNO ID: [id number] Author: RAKESH THOMPSON PA-C Service: ? Author Type: Physician Customer Service Officer Type: Progress Notes Filed: 09/07/2024 09:35 Note Text: [facility] Low back pain - chronic follow up Exam SUBJECTIVE HISTORY OF PRESENT ILLNESS: Aurora Montague is a 49 year old female who presents with a chief complaint of low back and leg pain. Here for PT follow up. #1. Low back Change in pain with pain radiating to both legs the past 2 weeks. Using ice at night to help. Pain is located in midline low back. Radiates to bilateral (R>L) lateral hips to lateral thighs. Intermittent pain in bilateral toes or arches of feet. Intermittent tingling in toes. Feels like rubber band around the left thigh. Occasionally waking up with severe pain, cramp throughout the right leg. Right ankle gave out about one week ago. Difficulty going up stairs due to generalized weak sensation, burning in anterior thighs. Reports about 10 falls since last office visit. Trips over nothing or foot slips off the step. Urinary leakage with coughing/sneezing. Otherwise normal sensation and able to use the restroom. Pain ratio: 25% low back vs 75% leg pain #2. Neck Burning pain, stiffness in posterior neck. Mostly constant. No recent radiation. No radiating arm pain. No recent headaches. Sharp, nerve pain in bilateral hands and all the fingers. Comes and goes. Intermittent numbness/tingling in left 2nd and 4th fingers and right 2nd - 4th fingers. States she feels numbness over 90% of her body. Dropping things with both hands since her neck surgery 2016. No longer feeling the left arm weakness. Feeling weakness right shoulder/upper arm for 2-3 weeks when trying to pulling blanket onto herself. Recently had first session EMDR with therapist for PTSD. Vision changes - blurred vision, double vision. Astigmatism. Nicotine use: none Interventions: Medications: Wellbutrin (150mg qAM), Zoloft (100mg qAM), Klonopin (1mg BID) -Previously tried: [place], robaxin, diclofenac 75mg BID ,medrol dose pack (11/27/22), prednisone (01/26/23), naproxen - GI bleed/ulcer -tylenol - no relief -topicals - no relief -stopped NSAIDs due to GI issues Physical therapy: x4 visits 05/27/24-07/27/24 for low back pain, right hip pain -PT x1 visit for neck pain 03/18/24 -completed 4 weeks December 2022 for neck - caused more pain -PT for low back was 2021 at [facility] Previous spine injection history: none - states nervous of injections Previous spine surgery: -11/18/2016 : Anterior cervical C4/5, C5/6, C6/7 discectomy, C5, C6 corpectomy and fusion with iliac strut graft and Invizia plate with Dr. Harvey at [facility] Office visit 03/11/24: Here today for evaluation of her low [...] ordered as well as EGD and colonoscopy. Office visit 02/19/24: Pain is currently 2/10. [...] smoking March 23 Office visit 03/10/23: History (more content not included)... [facility] 09-05-2024 Telephone encounter Note Pharmacy calling in requesting refills as follows: Requested Prescriptions Pending Prescriptions Disp Refills hyoscyamine (LEVSIN) 0.125 mg tablet [Pharmacy Med Name: HYOSCYAMINE SULF 0.125 MG TAB] 60 tablet 1 Sig: TAKE 1 TABLET BY MOUTH TWO TIMES A DAY AT 6 AM AND 9 PM [facility] - 02/29/2024 [facility] 09-05-2024 Miscellaneous Notes Pharmacy calling in requesting refills as follows: Requested Prescriptions Pending Prescriptions Disp Refills hyoscyamine (LEVSIN) 0.125 mg tablet [Pharmacy Med Name: HYOSCYAMINE SULF 0.125 MG TAB] 60 tablet 1 Sig: TAKE 1 TABLET BY MOUTH TWO TIMES A DAY AT 6 AM AND 9 PM [facility] 02/29/2024 documented in this encounter [facility] 08-01-2024 Telephone encounter Note Refill Request Last [...] above. Please process accordingly. Whitney Thorpe LPN [facility] 08-01-2024 Miscellaneous Notes Refill Request Last office [...] Whitney Thorpe LPN documented in this encounter [facility] 07-28-2024 Telephone encounter Note Pharmacy has requested the following refill(s): Requested Prescriptions Pending Prescriptions Disp Refills sucralfate (CARAFATE) 1 gram tablet [Pharmacy Med Name: SUCRALFATE 1 GM TABLET] 60 tablet 0 Sig: TAKE 1 TABLET BY MOUTH TWO TIMES A DAY BEFORE MEALS. [facility] 07-28-2024 Miscellaneous Notes Pharmacy has requested the following refill(s): Requested Prescriptions Pending Prescriptions Disp Refills sucralfate (CARAFATE) 1 gram tablet [Pharmacy Med Name: SUCRALFATE 1 GM TABLET] 60 tablet 0 Sig: TAKE 1 TABLET BY MOUTH TWO TIMES A DAY BEFORE MEALS. documented in this encounter [facility] 07-27-2024 Note HNO ID: [id number] Author: NELLA DUPONT, PT Service: ? Author Type: Physical Therapist Type: Progress Notes Filed: 07/27/2024 16:17 Note Text: Episode Visit Count: 4 Therapist That Will [...] treatment included: Therapeutic exercise, Neuromuscular re-education, and Self-correction management. Patient has had improvements in lumbar ROM, LE and core strength, ability to perform functional activities, and decreased pain since initiating physical therapy services. Patient continues to have LBP and hip pain. Is going to follow up with physician. Goals for Episode of Care: created on 05/27/24 through 07/27/24 Updated 07/27/24 [place] in home exercise program. MET Patient will [...] a lot today. She went into a [email or web address] kitchen, and they had a board she [...] x 15 reps Skilled Intervention: Education in proprioceptive/kinesth (more content not included)... [facility] 07-27-2024 History of Present illness Narrative Images from the original note [...] treatment included: Therapeutic exercise, Neuromuscular re-education, and Self-correction management. Patient has had improvements in lumbar ROM, LE and core strength, ability to perform functional activities, and decreased pain since initiating physical therapy services. Patient continues to have LBP and hip pain. Is going to follow up with physician. Goals for Episode of Care: created on 05/27/24 through 07/27/24 Updated 07/27/24 [place] in home exercise program. MET Patient will [...] a lot today. She went into a [employer] kitchen, and they had a board she [...] Nella Dupont PT documented in this encounter [facility] 07-08-2024 History of Present illness Narrative Program_ID:[id number] Access Code: [email or web address] URL: [email or web address]/ Date: 07-08-2024 Prepared By: Nella Dupont Program [...] Home Exercise Program Assigned: 1: Access Code: [email or web address] URL: [email or web address]/ Date: 07/08/2024 Prepared by: Angelic Pope Exercises [...] Angelic Pope PT documented in this encounter [facility] 07-08-2024 Note HNO ID: [id number] Author: ANGELIC POPE PT Service: ? Author [...] Home Exercise Program Assigned: 1: Access Code: [email or web address] URL: [email or web address] Date: 07/08/2024 Prepared by: Angelic Pope Exercises [...] 1351 Session Stop Time : 1434 Angelic Pope, PT [facility] 06-27-2024 Telephone encounter Note Pharmacy calls in requesting the following refill(s): Requested Prescriptions Pending Prescriptions Disp Refills sucralfate (CARAFATE) 1 gram tablet [Pharmacy Med Name: SUCRALFATE 1 GM TABLET] 60 tablet 0 Sig: TAKE 1 TABLET BY MOUTH TWO TIMES A DAY BEFORE MEALS. [facility] 06-27-2024 Miscellaneous Notes Pharmacy calls in requesting the following refill(s): Requested Prescriptions Pending Prescriptions Disp Refills sucralfate (CARAFATE) 1 gram tablet [Pharmacy Med Name: SUCRALFATE 1 GM TABLET] 60 tablet 0 Sig: TAKE 1 TABLET BY MOUTH TWO TIMES A DAY BEFORE MEALS. documented in this encounter [facility] 06-17-2024 History of Present illness Narrative Program_ID:[id number] Access Code: [email or web address] URL: [email or web address] Date: 06-17-2024 Prepared By: Nella Dupont Program [...] Nella Dupont PT documented in this encounter [facility] 06-17-2024 Note HNO ID: [id number] Author: NELLA DUPONT PT Service: ? Author Type: Physical Therapist Type: Progress Notes Filed: 06/17/2024 16:04 Note Text: Episode Visit Count: 2 Therapist That Will Accept/Oversee The Plan Of Care: Gill Nella Start of Care Date: 05/27/24 Onset Date: [...] Stop Time : 1604 Nella Dupont PT [facility] 05-27-2024 History of Present illness Narrative Program_ID:[id number] Access Code: [email or web address] URL: [email or web address] Date: 05-27-2024 Prepared By: Nella Dupont Program [...] of Care: created on 05/27/24 through 07/26/24 [place] in home exercise program. 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 Patient education as noted. Self-Skilled Nursing Management: 1: Patient educated on impairments noted [...] 1408 Session Stop Time : 1437 Nella Dupont PT documented in this encounter [facility] 05-27-2024 Note HNO ID: [id number] Author: NELLA DUPONT PT Service: ? Author [...] of Care: created on 05/27/24 through 07/26/24 [place] in home exercise program. 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 [facility] 04-27-2024 Telephone encounter Note Call to [facility], spoke to Kenia. Resubmitted additional information via fax to . Dottie Kirby RN [facility] 04-27-2024 Telephone encounter Note Images from the original note were not included. [facility] 04-27-2024 Miscellaneous Notes Call to [employer] [facility], spoke to Kenia. Resubmitted additional information via fax to . Dottie Kirby RN Images from the original note were not included. documented in this encounter [facility] 04-26-2024 Nurse Note POST OP LEARNING RESPONSE [...] Maribell Becerra RN In Department: AMBULATORY SURGERY [facility] 04-26-2024 Nurse Note POST OP LEARNING RESPONSE [...] Department: AMBULATORY SURGERY documented in this encounter [facility] 04-26-2024 History and physical note SEDATION HISTORY [...] DATE: April 26, 2024 TIME: 11:01 AM [facility] 04-26-2024 History and physical note SEDATION HISTORY [...] TIME: 11:01 AM documented in this encounter [facility] 04-26-2024 Nurse Note PRE OP LEARNING ASSESSMENT [...] Tracie Willams RN In Department: AMBULATORY SURGERY [facility] 03-21-2024 History of Present illness Narrative Radiology Service Progress Note DATE [...] PATIENT PRESENTS WITH AN IMPLANTABLE OR ATTACHED BREWERY TECHNICIAN: No ALLERGIES: Reviewed and unchanged CONTRAST ALLERGY: [...] TIME: 8:10 AM documented in this encounter [facility] 03-21-2024 Note HNO ID: [id number] Author: DELFINA ELLINGTON RT(R) Service: ? Author [...] PATIENT PRESENTS WITH AN IMPLANTABLE OR ATTACHED BREWERY TECHNICIAN: No ALLERGIES: Reviewed and unchanged CONTRAST ALLERGY: [...] DATE: March 21, 2024 TIME: 8:10 AM [facility] 03-18-2024 History of Present illness Narrative Program_ID:[id number] Access Code: [email or web address] URL: [email or web address] Date: 03-18-2024 Prepared By: Dunia Aranda Program [...] mechanics through functional tasks of daily living. [place] in home exercise program. Patient will decrease pain to 1/10 with functional activities to allow patient to improve tolerance through ADLs. Restore pain free cervical ROM to WNL to allow for improved tolerance through ADLs. 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) Recreation / [...] Elbow Flexion (C6): 5/5 Hand Strength R Baking Assistant Position 1 (lbs): 78 lbs R Baking Assistant Position 2 (lbs): 65 lbs R Baking Assistant Position 3 (lbs): 55 lbs L Baking Assistant Position 1 (lbs): 70 lbs L Baking Assistant Position 2 (lbs): 80 lbs L Baking Assistant Position 3 (lbs): 70 lbs Education: Education Learning Preferences: Demonstration, Explanation, Performance, Printed Materials Barriers: None Learning/educational needs: Home exercise program, Plan of Care Education Provided: Yes, see treatment interventions for education provided Education Provided To: Patient Education Mode/Type: Demonstration, Explanation/Discussion, Literature/Printed Materials, Performance, Teach Back Response to Education/Teach Back: States/Identifies, Return Demonstration TREATMENT: PT Treatment Interventions: Therapeutic Exercise, Self-Skilled Nursing Management Evaluation Evaluation Therapeutic Exercise: 1: *scapular [...] and tactile cuing. Patient education as noted. Self-Skilled Nursing Management: 1: education through diagnosis, prognosis, HEP, [...] Aranda PT, DPT documented in this encounter [facility] 03-18-2024 Note HNO ID: [id number] Author: DUNIA ARANDA PT, DPT Service: ? [...] mechanics through functional tasks of daily living. [place] in home exercise program. Patient will decrease pain to 1/10 with functional activities to allow patient to improve tolerance through ADLs. Restore pain free cervical ROM to WNL to allow for improved tolerance through ADLs. 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 [facility] 03-11-2024 History of Present illness Narrative Images from the original note [...] (100mg qAM), Klonopin (1mg BID) -Previously tried: [place], robaxin, diclofenac 75mg BID ,medrol dose pack [...] and Invizia plate with Dr. Harvey at [facility] Office visit 02/19/24: Pain is currently 2/10. [...] C6 corpectomy and fusion on 11/18/16 at [facility]. Prior to surgery she had severe pain [...] the face. Seen in ED and prescribed [place] as well as amoxicillin for possible tooth infection. 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 Lots of cervical flexion/extension which aggravates [...] office visit 02/16/23 she was referred to [facility] Neurosurgery for evaluation. Treating providers: --Neurosurgery Dr. [...] Normal FADIR Normal Normal Log-roll Hips: negative Kell's (modified):negative Thigh thrust: negative Prone extension: states [...] and fusion extending from C4 to C7. Market Editor (topogram) images: No significant findings. Alignment: Alignment [...] axon loss changes in left C7 myotome, tnffvuws-ty-ixwwel in degree electrically, with significant active/ongoing motor [...] which included preparing to see the patient, ukvr-jb-[id number] patient care, completing clinical documentation, obtaining and/or reviewing separately obtained history, performing a medically appropriate examination, counseling and educating the patient/family/caregiver, independently interpreting results (not separately reported), and communicating results to the patient/family/caregiver. SIGNATURE: Rakesh Thompson PA-C PATIENT NAME: Aurora Montague DATE: March 11, 2024 TIME: 11:15 AM documented in this encounter [facility] 03-11-2024 Note HNO ID: [id number] Author: RAKESH THOMPSON PA-C Service: ? Author Type: Physician Customer Service Officer Type: Progress Notes Filed: 03/11/2024 15:24 Note [...] (100mg qAM), Klonopin (1mg BID) -Previously tried: [place], robaxin, diclofenac 75mg BID ,medrol dose pack [...] and Invizia plate with Dr. Harvey at [facility] Office visit 02/19/24: Pain is currently 2/10. [...] C6 corpectomy and fusion on 11/18/16 at [facility]. Prior to surgery she had severe pain [...] grabbing small objects. (more content not included)... 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 documented in this encounter [facility] 02-29-2024 Note HNO ID: [id number] Author: ASHLEY SHAH MD Service: ? Author [...] fax, or via US Mail. 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 [facility] 02-19-2024 History of Present illness Narrative Radiology Service Progress Note PATIENT [...] PATIENT PRESENTS WITH AN IMPLANTABLE OR ATTACHED BREWERY TECHNICIAN: No RADIOLOGY DEPARTMENT: General X-ray: Exam(s) Completed: Spine X-Ray(s): Lumbar AP / LAT / L5-S1 PERIPHERAL IV DATA: Not applicable SIGNED BY: RT Beatrice(R) February 19, 2024 12:33 PM documented in this encounter [facility] 02-19-2024 Note HNO ID: [id number] Author: OLEKSANDR POPE RT(R) Service: Radiology Author [...] PATIENT PRESENTS WITH AN IMPLANTABLE OR ATTACHED BREWERY TECHNICIAN: No RADIOLOGY DEPARTMENT: General X-ray: Exam(s) Completed: Spine X-Ray(s): Lumbar AP / LAT / L5-S1 PERIPHERAL IV DATA: Not applicable SIGNED BY: RT Beatrice(R) February 19, 2024 12:33 PM [facility] 02-19-2024 Note HNO ID: [id number] Author: RAKESH THOMPSON PA-C Service: ? Author Type: Physician Customer Service Officer Type: Progress Notes Filed: 02/19/2024 12:54 Note [...] Interventions: Medications: Wellbutrin, Zoloft, Klonopin -Previously tried: [place], robaxin, diclofenac 75mg BID ,medrol dose pack [...] and Invizia plate with Dr. Harvey at [facility] Office visit 03/10/23: History of Anterior cervical C4/5, C5/6, C6/7 discectomy, C5, C6 corpectomy and fusion on 11/18/16 at [facility]. Prior to surgery she had severe pain [...] the face. Seen in ED and prescribed [place] as well as amoxicillin for possible tooth infection. 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 Lots of cervical flexion/extension which aggravates [...] office visit 02/16/23 she was referred to [facility]surgery for evaluation. Treating providers: --Paige (more content not included)... [facility] 02-19-2024 History of Present illness Narrative Images from the original note [...] Interventions: Medications: Wellbutrin, Zoloft, Klonopin -Previously tried: [place], robaxin, diclofenac 75mg BID ,medrol dose pack [...] and Invizia plate with Dr. Harvey at [facility] Office visit 03/10/23: History of Anterior cervical C4/5, C5/6, C6/7 discectomy, C5, C6 corpectomy and fusion on 11/18/16 at [facility]. Prior to surgery she had severe pain [...] the face. Seen in ED and prescribed [place] as well as amoxicillin for possible tooth infection. 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 Lots of cervical flexion/extension which aggravates [...] office visit 02/16/23 she was referred to [facility]surgery for evaluation. Treating providers: --Neurosurgery Dr. [...] and fusion extending from C4 to C7. Market Editor (topogram) images: No significant findings. Alignment: Alignment [...] axon loss changes in left C7 myotome, nflnvjbe-zc-dwjxjt in degree electrically, with significant active/ongoing motor [...] which included preparing to see the patient, iswv-hx-xtsb patient care, completing clinical documentation, obtaining and/or reviewing separately obtained history, performing a medically appropriate examination, counseling and educating the patient/family/caregiver, ordering medications, tests, or procedures, independently interpreting results (not separately reported), and communicating results to the patient/family/caregiver. SIGNATURE: Rakesh Thompson PA-C PATIENT NAME: Aurora Montague DATE: February 19, 2024 TIME: 11:15 AM documented in this encounter [facility] 04-20-2023 History of Present illness Narrative Radiology Service Progress Note PATIENT [...] Not applicable SIGNED BY: Sherlyn Haile RT(R)MRJohan RT(R) April 20, 2023 5:02 PM documented in this encounter [facility] 04-08-2023 Miscellaneous Notes Attempted to reach again. [...] axon loss changes in left C7 myotome, axasohng-xa-cmlunh in degree electrically, with significant active/ongoing motor [...] Rakesh Thompson PA-C documented in this encounter [facility] 04-03-2023 History of Present illness Narrative UNIVERSAL PROTOCOL / SAFETY CHECKLIST [...] applicable. Rebeca Philip MD Staff, Neuromuscular Center [facility] [place] documented in this encounter [facility] 03-25-2023 History of Present illness Narrative Radiology Service Progress Note PATIENT [...] 2023 3:33 PM documented in this encounter [facility] 03-10-2023 History of Present illness Narrative Spine Care Path Radicular Arm [...] C6 corpectomy and fusion on 11/18/16 at [facility]. Prior to surgery she had severe pain [...] the face. Seen in ED and prescribed [place] as well as amoxicillin for possible tooth infection. 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 Lots of cervical flexion/extension which aggravates [...] office visit 02/16/23 she was referred to [facility]surgery for evaluation. Interventions: Medications: norco (for [...] and Invizia plate with Dr. Harvey at [facility] Treating providers: --Neurosurgery Dr. Mina Browning 01/18/18 [...] which included preparing to see the patient, [id number]-yflr patient care, completing clinical documentation, obtaining and/or [...] HPI/Conservative Treatment Section (NSAIDs, PT, HEP and/or Manager Port within last 3-6 months) . physical therapy for 4 weeks in December 2022 with continued HEP without relief. SIGNATURE: Rakesh Thompson PA-C PATIENT NAME: Aurora Montague DATE: March 10, 2023 TIME: 9:45 AM documented in this encounter [facility] 09-26-2022 Evaluation note Encounter Date Diagnosis Assessment [...] Pt understood and agreed to tx plan. [employer] Other 04-07-2022 Evaluation note* Encounter Date Diagnosis [...] improvement, may consider MRI. Call with questions/concerns. [employer] Other 01-13-2022 Evaluation note* Encounter Date Diagnosis [...] Pt understood and agreed to treatment plan. 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) [facility] noteNo assessment information availableL[facility] Work Phone: Evaluation note* Diagnosis Onset Date Resolution Status Contusion of right hand none active [facility] Work Phone: Evaluation note* Diagnosis Left arm weakness- Primary Other musculoskeletal symptoms referable to limbs Neck pain Cervicalgia Numbness and tingling in both hands Pain in both hands S/P cervical spinal fusion Arthrodesis status Chronic bilateral low back pain with right-sided sciatica [facility] Diagnosis Chronic abdominal pain- Primary Abdominal pain, unspecified site Gastroesophageal reflux disease with esophagitis without hemorrhage Nausea Nausea alone PUD (peptic ulcer disease) Peptic ulcer, unspecified site, unspecified as acute or chronic, without mention of hemorrhage, perforation, or obstruction Rectal bleeding Hemorrhage of rectum and anus Irritable bowel syndrome with both constipation and diarrhea [facility]* Diagnosis Lumbar spondylosis- Primary Lumbosacral spondylosis without myelopathy Chronic bilateral low back pain with bilateral sciatica Pain in right hip Pain in joint, pelvic region and thigh [facility]* Diagnosis S/P cervical spinal fusion Arthrodesis status Left arm weakness Other musculoskeletal symptoms referable to limbs Neck pain Cervicalgia Numbness and tingling in both hands Pain in both hands [facility] Diagnosis Chronic abdominal pain Abdominal pain, unspecified site Nausea Nausea alone [facility] Diagnosis Chronic midline low back pain without sciatica- Primary Lumbar spondylosis Lumbosacral spondylosis without myelopathy Chronic bilateral low back pain with bilateral sciatica Pain in right hip Pain in joint, pelvic region and thigh [facility]* Diagnosis Chronic midline low back pain without sciatica- Primary [facility]* Diagnosis Chronic midline low back pain without sciatica- Primary [facility]* Diagnosis Gastroesophageal reflux disease with esophagitis without hemorrhage Nausea Nausea alone PUD (peptic ulcer disease) Peptic ulcer, unspecified site, unspecified as acute or chronic, without mention of hemorrhage, perforation, or obstruction Rectal bleeding Hemorrhage of rectum and anus Irritable bowel syndrome with both constipation and diarrhea [facility]* Diagnosis Chronic bilateral low back pain with right-sided sciatica [facility]* Diagnosis Radiculopathy, cervical region Brachial neuritis or radiculitis nos S/P cervical spinal fusion Arthrodesis status Numbness and tingling in left arm Disturbance of skin sensation Spasm of muscle [facility]* Diagnosis Radiculopathy, cervical region Brachial neuritis or radiculitis nos S/P cervical spinal fusion Arthrodesis status Numbness and tingling in left arm Disturbance of skin sensation Spasm of muscle [facility]* Diagnosis Chronic midline low back pain without sciatica- Primary [facility]* Diagnosis Chronic midline low back pain with bilateral sciatica- Primary Lumbar spondylosis Lumbosacral spondylosis without myelopathy Paresthesias Disturbance of skin sensation Neck pain Cervicalgia Falls frequently Personal history of fall Vision changes Unspecified visual disturbance Other chronic pain [facility]* Diagnosis Yeast infection UTI symptoms [facility] - [facility]orted* Type Description Date Medical History anxiety Medical History degenerative disc disease Medical History Acid reflux Medical History nerve damage Medical History incontinent of urine Surgical History neck surgery Surgical History oral surgry Surgical History LEEP Surgical History CONE Surgical History laparoscopy Surgical History wisodom teeth Surgical History hysterectomy Hospitalization History see above Hospitalization History [facility] Other Reason for referral (narrative)* Outpatient Procedure (Routine) - Pending Review Specialty Diagnoses / Procedures Referred By Roberto irizarry Referred To Contact [facility] Diagnoses Radiculopathy, cervical region Numbness and tingling in left arm Spasm of muscle Procedures EMG(NEURO/NI) NERVE CONDUCTION STUDIES 9-10 STUDIES Rakesh Thompson PA-C [address] [place] [id number] [facility] [place] [address] [place] [address] Referral ID Status Reason Start Date Expiration Date Visits Requested Visits Authorized [id number] Pending Review Auto-Generat ed Referral 03/10/2023 03/10/2024 1 1 * MRI/CT (Routine) - Additional Clinical Info Needed Specialty Diagnoses / Procedures Referred By Roberto irizarry Referred To Contact CT IMAGING Diagnoses Radiculopathy, cervical region S/P cervical spinal fusion Numbness and tingling in left arm Spasm of muscle Procedures CT CERVICAL SPINE WO IVCON CT CERVICAL SPINE W/O CONTRAST MATERIAL Rakesh Thompson PA-C [address] [place] [address] Ct Imaging Referral ID Status Reason Start Date Expiration Date Visits Requested Visits Authorized [id number] Additional Clinical Info Needed Auto-Generat ed Referral [...] CERVICAL W/O CONTRAST MATRL Rakesh Thompson PA-C [address] [place] [address] [phone] Mr Imaging Referral ID Status Reason Start Date Expiration Date Visits Requested Visits Authorized [id number] Additional Clinical Info Needed Patient Cleared - Admin/Chair man/Directo r advise to proceed 03/10/2023 04/08/2024 1 1 [facility] for referral (narrative)* Diagnostic Procedure Only (Routine) - Closed Specialty Diagnoses / Procedures Referred By Contac t Referred To Contact XR IMAGING Diagnoses Chronic bilateral low back pain with right-sided sciatica Procedures XR LUMBAR LIMITED 2V AP/LAT RADEX SPINE LUMBOSACRAL 2/3 VIEWS Rakesh Thompson PA-C [address] [phone] X[facility] [place] [address] Referral ID Status Reason Start Date Expiration Date V isits Requested Visits Authorized [id number] Closed Auto-Generate d Referral 02/19/2024 03/20/2025 1 [...] HIGH COMPLEX 45 MINS Rakesh Thompson PA-C [address] [place] [address] [facility] [address] [address] Referral ID Status Reason Start Date Expiration Date Visits Requested Visits Authorized [id number] Authorized Auto-Generat ed Referral 11/02/2023 11/01/2024 1 1 [facility] for referral (narrative)* Outpatient Procedure (Routine) - Authorized Specialty Diagnoses / Procedures Referred By Contac t Referred To Contact [facility] Diagnoses Rectal bleeding Irritable bowel syndrome with both constipation and diarrhea Procedures COLONOSCOPY DIAGNOSTIC COLONOSCOPY FLX DX W/[place] [address] [place] [address] [address] Referral ID Status Reason Start Date Expiration Date Visits Requested Visits Authorized [id number] Authorized Auto-Generat ed Referral 02/29/2024 02/28/2025 1 1 * Outpatient Procedure (Routine) - Authorized Specialty Diagnoses / Procedures Referred By Contac t Referred To Contact [facility] Diagnoses Gastroesophageal reflux disease with esophagitis without hemorrhage Nausea PUD (peptic ulcer disease) Procedures EGD DIAGNOSTIC ESOPHAGOGASTRODUODENOSC OPY [place] [address] [place] [address] [facility] [address] [place] [address] Referral ID Status Reason Start Date Expiration Date Visits Requested Visits Authorized [id number] Authorized Auto-Generat ed Referral 02/29/2024 02/28/2025 1 1 * MRI/CT (Routine) - Additional Clinical Info Needed Specialty Diagnoses / Procedures Referred By Contac t Referred To Contact CT IMAGING Diagnoses Chronic abdominal pain Nausea Procedures CT ABD/PEL W IVCON CT ABD & PELVIS W/[place] [address] [place] [address] [place] [address] Referral ID Status Reason Start Date Expiration Date Visits Requested Visits Authorized [id number] Additional Clinical Info Needed Auto-Generat ed Referral 02/29/2024 03/30/2025 1 1 [facility] for referral (narrative)* Diagnostic Procedure Only (Routine) - Closed Specialty Diagnoses / Procedures Referred By Contac t Referred To Contact XR IMAGING Diagnoses Chronic bilateral low back pain with right-sided sciatica Procedures XR LUMBAR LIMITED 2V AP/LAT RADEX SPINE LUMBOSACRAL 2/3 VIEWS Rakesh Thompson PA-C [address] [place] [address] Xr Imaging [facility] Referral ID Status Reason Start Date Expiration Date V isits Requested Visits Authorized [id number] Closed Auto-Generate d Referral 02/19/2024 03/20/2025 1 1 [facility] for visit Narrative* Outpatient Procedure (Routine) - Closed Specialty Diagnoses / Procedures Referred By Contac t Referred To [facility] Diagnoses Rectal bleeding Irritable bowel syndrome with both constipation and diarrhea Procedures COLONOSCOPY DIAGNOSTIC COLONOSCOPY FLX DX W/COLLJ [place] [address] [place] [address] [facility] [place] [address] [place] [address] Referral ID Status Reason Start Date Expiration Date V isits Requested Visits Authorized [id number] Closed Auto-Generate d Referral 02/29/2024 02/28/2025 1 1 [facility] Summary Purpose Family History Relationship Condition Age at Onset Recorded Date/T enoc father Unknown Not Specified Unknown Advance Directives Advance Directive Response Recorded Date/ Time Advance Directives No January 03 18 9:18pm Chief Complaint and Reason for Visit Chief Complaint right hand pain w in laurie M79.641 - Pain in right hand Chief Complaint right hand pain w in laurie M79.641 - Pain in right hand Reason for Visit Contusion of right h and Reason for Referral Specialty Diagnoses / Procedures Referred By Kandisac t Referred To Contact [facility] [place] Diagnoses Chronic midline low back pain with bilateral sciatica Lumbar spondylosis Neck pain Other chronic pain Procedures CONSULT TO [facility]) OFFICE/OUTPATIENT [facility] 60 MINUTES Rakesh Thompson PA-C [address] [address] [phone] Referral ID Status Reason Start Date Expiration Date Visits Requested Visits Authorized [id number] Pending Review PCP Requested Referral 09/06/2024 09/06/2025 1 1 Specialty Diagnoses / Procedures Referred By Roberto t Referred To Contact Neurology Diagnoses Falls frequently Vision changes Paresthesias Procedures CONSULT TO NEUROLOGY OFFICE/OUTPATIENT [facility] 60 MINUTES Rakesh Thompson PA-C [address] [place] [address] Referral ID Status Reason Start Date Expiration Date Visits Requested Visits Authorized [id number] Authorized PCP Requested Referral 09/06/2024 09/06/2025 1 1 Specialty Diagnoses / Procedures Referred By Roberto t Referred To Contact MR IMAGING Diagnoses Chronic midline low back pain with bilateral sciatica Lumbar spondylosis Paresthesias Procedures MRI LUMBAR SPINE WO IVCON MRI SPINAL CANAL LUMBAR W/O CONTRAST MATERIAL Rakesh Thompson PA-C [address] [phone] Mr [facility] [place] [address] Referral ID Status Reason Start Date Expiration Date Visits Requested Visits Authorized [id number] Pending Review Auto-Generat ed Referral 09/06/2024 10/06/2025 1 1 Specialty Diagnoses / Procedures Referred By Roberto t Referred To Contact CT IMAGING Diagnoses Radiculopathy, cervical region S/P cervical spinal fusion Numbness and tingling in left arm Spasm of muscle Procedures CT CERVICAL SPINE WO IVCON CT CERVICAL SPINE W/O CONTRAST MATERIAL Rakesh Thompson PA-C [address] [place] [address] [place] [address] Referral ID Status Reason Start Date Expiration Date V isits Requested Visits Authorized [id number] Closed Auto-Generate d Referral 03/11/2023 05/10/2023 1 1 Specialty Diagnoses / Procedures Referred By Contac t Referred To Contact MR IMAGING Diagnoses Radiculopathy, cervical region S/P cervical spinal fusion Numbness and tingling in left arm Spasm of muscle Procedures MRI CERVICAL SPINE WO IVCON MRI SPINAL CANAL CERVICAL W/O CONTRAST Rakesh Dave PA-C [address] [place] [address] [place] [address] Referral ID Status Reason Start Date Expiration Date V isits Requested Visits Authorized [id number] Closed Patient Cleared - Admin/Chairm an/Director advise to proceed or did not respond 03/11/2023 05/10/2023 1 1 Specialty Diagnoses / Procedures Referred By Contac [place] [address] [place] [address] Referral ID Status Reason Start Date Expiration Date Visits Re quested Visits Authorized [id number] Denied 1 1 Specialty Diagnoses / Procedures Referred By Contac t Referred To Contact [facility] Diagnoses Rectal bleeding Irritable bowel syndrome with both constipation and diarrhea Procedures COLONOSCOPY DIAGNOSTIC COLONOSCOPY FLX DX W/COLLJ [place] [address] [place] [address] [facility] [address] [place] [address] Referral ID Status Reason Start Date Expiration Date V isits Requested Visits Authorized [id number] Closed Auto-Generate d Referral 02/29/2024 02/28/2025 1 1 Specialty Diagnoses / Procedures Referred By Contac t Referred To Contact [facility] Diagnoses Gastroesophageal reflux disease with esophagitis without hemorrhage Nausea PUD (peptic ulcer disease) Procedures EGD DIAGNOSTIC ESOPHAGOGASTRODUODENOSC OPY TRANSORAL DIAGNOST[place] [address] [place] [address] [facility] [address] [place] [address] Referral ID Status Reason Start Date Expiration Date V isits Requested Visits Authorized [id number] Closed Auto-Generate d Referral 02/29/2024 02/28/2025 1 1 Specialty Diagnoses / Procedures Referred By Contac t Referred To Contact CT IMAGING Diagnoses Chronic abdominal pain Nausea Procedures CT ABD/PEL W IVCON CT ABD & P[place] W/[place] [address] [place] [address] [place] [address] Referral ID Status Reason Start Date Expiration Date V isits Requested Visits Authorized [id number] Closed Auto-Generate d Referral 03/08/2024 05/07/2024 1 1 Specialty Diagnoses / Procedures Referred By Contac t Referred To Contact [facility] Diagnoses S/P cervical spinal fusion Left arm weakness Neck pain Numbness and tingling in both hands Pain in both hands Procedures PT REHAB FOLLOW UP ORDER THERAPEUTIC EXERCISES RE, EA 15 MIN. Dunia Aranda, PT, DPT [address] [place] [address] [facility] [address] [address] Referral ID Status Reason Start Date Expiration Date Visits Requested Visits Authorized [id number] Pending Review PCP Requested Referral Auto-Generate d Referral 03/18/2024 06/16/2024 1 1 Specialty Diagnoses / Procedures Referred By Contac t Referred To Contact [facility] Diagnoses Lumbar spondylosis Chronic bilateral low back pain with bilateral sciatica Pain in right hip Procedures CONSULT TO PHYSICAL THERAPY PHYSICAL THERAPY EVALUATION HIGH COMPLEX 45 MINS Rakesh Thompson PA-C [address] [place] [address] [facility] [address] [address] Referral ID Status Reason Start Date Expiration Date Visits Requested Visits Authorized [id number] Pending Review Auto-Generat ed Referral 03/11/2024 03/11/2025 1 1 Additional Source Comments INFORMATION SOURCE (unrecogn ized section and content) DATE CREATED AUTHOR 04/21/2018 [facility] DATE CREATED AUTHOR AUTHOR'S ORGANIZ ATION 04/22/2018 [facility] DATE CREATED AUTHOR AUTHOR'S ORGANIZ ATION 02/12/2023 [facility] [place] [facility] DATE CREATED AUTHOR AUTHOR'S ORGANIZ ATION 03/15/2023 [facility] DATE CREATED AUTHOR AUTHOR'S ORGANIZ ATION 09/11/2024 [facility] DATE CREATED AUTHOR AUTHOR'S ORGANIZ ATION 10/01/2024 [facility] EPIC DATE CREATED AUTHOR AUTHOR'S ORGANIZ ATION 10/02/2024 [facility] REASON FOR VISIT (unrecogniz ed section and content) Reason Comments PT Discharge Specialty Diagnoses / Procedures Referred By Contac t Referred To Contact Physical Therapy / PHYSICAL THERAPY Diagnoses hip and back Procedures EST RS PT ORTH MSK Rakesh Thompson PA-C [address] [place] [address] Angelic Pope, PT [address] [place] [address] Referral ID Status Reason Start Date Expiration Date V isits Requested Visits Authorized [id number] Authorized 07/04/2024 10/01/2024 5 5 Reason Comments [...] CONDUCTION STUDIES 9-10 STUDIES Rakesh Thompson PA-C [address] [facility] [place] [address] [facility] [place] [address] [place] [address] Referral ID Status Reason Start Date Expiration Date V isits Requested Visits Authorized [id number] Closed Auto-Generate d Referral 03/10/2023 03/10/2024 1 [...] HIGH COMPLEX 45 MINS Rakesh Thompson PA-C [address] [place] [address] [facility] [address] [address] Referral ID Status Reason Start Date Expiration Date V isits Requested Visits Authorized [id number] Closed Auto-Generate d Referral 11/02/2023 11/01/2024 1 1 Specialty Diagnoses / Procedures Referred By Contac t Referred To Contact CT IMAGING Diagnoses Chronic abdominal pain Nausea Procedures CT ABD/PEL W IVCON CT ABD & PELVIS W/[place] [address] [place] [address] [place] [address] Referral ID Status Reason Start Date Expiration Date V isits Requested Visits Authorized [id number] Closed Auto-Generate d Referral 03/08/2024 05/07/2024 1 1 Reason Comments Insurance Authorization PA colin Specialty Diagnoses / Procedures Referred By Contac t Referred To Contact [facility] Diagnoses S/P cervical spinal fusion Left arm weakness Neck pain Numbness and tingling in both hands Pain in both hands Procedures PT REHAB FOLLOW UP ORDER THERAPEUTIC EXERCISES RE, EA 15 MIN. Dunia Aranda, PT, DPT [address] [place] [address] [facility] [address] [address] Referral ID Status Reason Start Date Expiration Date Visits Requested Visits Authorized [id number] Authorized PCP Requested Referral Auto-Generate d Referral [...] 15 MIN. Dunia Aranda, PT, DPT [address] [facility] [place] [address] [facility] [place] [address] [place] [address] Reason Comments Refill Request Carafate Reason Comments Radio Gen RMP Specialty Diagnoses / Procedures Referred By Contac t Referred To Contact XR IMAGING Diagnoses Chronic bilateral low back pain with right-sided sciatica Procedures XR LUMBAR LIMITED 2V AP/LAT RADEX SPINE LUMBOSACRAL 2/3 VIEWS Rakesh Thompson PA-C [address] [place] [address] [place] [address] Referral ID Status Reason Start Date Expiration Date V isits Requested Visits Authorized [id number] Closed Auto-Generate d Referral 02/19/2024 03/20/2025 1 1 Reason Comments Radiology MRI Specialty Diagnoses / Procedures Referred By Contac t Referred To Contact MR IMAGING Diagnoses Radiculopathy, cervical region S/P cervical spinal fusion Numbness and tingling in left arm Spasm of muscle Procedures MRI CERVICAL SPINE WO IVCON MRI SPINAL CANAL CERVICAL W/O CONTRAST MATRL Rakesh Thompson PA-C [address] [place] [address] Mr Imaging [facility] Referral ID Status Reason Start Date Expiration Date V isits Requested Visits Authorized [id number] Closed Patient Cleared - Admin/Chairm an/Director advise [...] SPINE W/O CONTRAST MATERIAL Rakesh Thompson PA-C [address] [place] [address] [place] [address] Referral ID Status Reason Start Date Expiration Date V isits Requested Visits Authorized [id number] Closed Auto-Generate d Referral 03/11/2023 05/10/2023 1 1 Reason Comments Refill Request Reason Comments Refill Request Levsin Reason Comments Follow Up PT follow up Reason Comments Vaginitis/Bacterial Vaginosis UTI concerns Source Comments (unrecognize d section and content) In the event this informatio n is protected by the Federal Confidentiality of Alcohol and Drug Abuse Patient Records regulations: The Federal rules restrict any use of the information to criminally investigate or prosecute any alcohol or drug abuse patient.[facility] the event this information is protected by the Federal Confidentiality of Alcohol and Drug Abuse Patient Records regulations: The Federal rules restrict any use of the information to criminally investigate or prosecute any alcohol or drug abuse patient.[facility] the event this information is protected by the Federal Confidentiality of Alcohol and Drug Abuse Patient Records regulations: The Federal rules restrict any use of the information to criminally investigate or prosecute any alcohol or drug abuse patient.[facility] the event this information is protected by the Federal Confidentiality of Alcohol and Drug Abuse Patient Records regulations: The Federal rules restrict any use of the information to criminally investigate or prosecute any alcohol or drug abuse patient.[facility] the event this information is protected by the Federal Confidentiality of Alcohol and Drug Abuse Patient Records regulations: The Federal rules restrict any use of the information to criminally investigate or prosecute any alcohol or drug abuse patient.[facility] the event this information is protected by the Federal Confidentiality of Alcohol and Drug Abuse Patient Records regulations: The Federal rules restrict any use of the information to criminally investigate or prosecute any alcohol or drug abuse patient.[facility] Memorial[facility] the event this information is protected by the Federal Confidentiality of Alcohol and Drug Abuse Patient Records regulations: The Federal rules restrict any use of the information to criminally investigate or prosecute any alcohol or drug abuse patient.[facility] Memorial[facility] the event this information is protected by the Federal Confidentiality of Alcohol and Drug Abuse Patient Records regulations: The Federal rules restrict any use of the information to criminally investigate or prosecute any alcohol or drug abuse patient.[facility] Memorial[facility] the event this information is protected by the Federal Confidentiality of Alcohol and Drug Abuse Patient Records regulations: The Federal rules restrict any use of the information to criminally investigate or prosecute any alcohol or drug abuse patient.[facility] MemorialIn the event this information is protected by the Federal Confidentiality of Alcohol and Drug Abuse Patient Records regulations: The Federal rules restrict any use of the information to criminally investigate or prosecute any alcohol or drug abuse patient.[facility] MemorialIn the event this information is protected by the Federal Confidentiality of Alcohol and Drug Abuse Patient Records regulations: The Federal rules restrict any use of the information to criminally investigate or prosecute any alcohol or drug abuse patient.[facility] MemorialIn the event this information is protected by the Federal Confidentiality of Alcohol and Drug Abuse Patient Records regulations: The Federal rules restrict any use of the information to criminally investigate or prosecute any alcohol or drug abuse patient.[facility] MemorialIn the event this information is protected by the Federal Confidentiality of Alcohol and Drug Abuse Patient Records regulations: The Federal rules restrict any use of the information to criminally investigate or prosecute any alcohol or drug abuse patient.[facility] MemorialIn the event this information is protected by the Federal Confidentiality of Alcohol and Drug Abuse Patient Records regulations: The Federal rules restrict any use of the information to criminally investigate or prosecute any alcohol or drug abuse patient.[facility] MemorialIn the event this information is protected by the Federal Confidentiality of Alcohol and Drug Abuse Patient Records regulations: The Federal rules restrict any use of the information to criminally investigate or prosecute any alcohol or drug abuse patient.[facility] MemorialIn the event this information is protected by the Federal Confidentiality of Alcohol and Drug Abuse Patient Records regulations: The Federal rules restrict any use of the information to criminally investigate or prosecute any alcohol or drug abuse patient.[facility] MemorialIn the event this information is protected by the Federal Confidentiality of Alcohol and Drug Abuse Patient Records regulations: The Federal rules restrict any use of the information to criminally investigate or prosecute any alcohol or drug abuse patient.[facility] MemorialIn the event this information is protected by the Federal Confidentiality of Alcohol and Drug Abuse Patient Records regulations: The Federal rules restrict any use of the information to criminally investigate or prosecute any alcohol or drug abuse patient.[facility] MemorialIn the event this information is protected by the Federal Confidentiality of Alcohol and Drug Abuse Patient Records regulations: The Federal rules restrict any use of the information to criminally investigate or prosecute any alcohol or drug abuse patient.[facility] MemorialIn the event this information is protected by the Federal Confidentiality of Alcohol and Drug Abuse Patient Records regulations: The Federal rules restrict any use of the information to criminally investigate or prosecute any alcohol or drug abuse patient.[facility] MemorialIn the event this information is protected by the Federal Confidentiality of Alcohol and Drug Abuse Patient Records regulations: The Federal rules restrict any use of the information to criminally investigate or prosecute any alcohol or drug abuse patient.[facility] MemorialIn the event this information is protected by the Federal Confidentiality of Alcohol and Drug Abuse Patient Records regulations: The Federal rules restrict any use of the information to criminally investigate or prosecute any alcohol or drug abuse patient.[facility] MemorialIn the event this information is protected by the Federal Confidentiality of Alcohol and Drug Abuse Patient Records regulations: The Federal rules restrict any use of the information to criminally investigate or prosecute any alcohol or drug abuse patient.[facility] MemorialIn the event this information is protected by the Federal Confidentiality of Alcohol and Drug Abuse Patient Records regulations: The Federal rules restrict any use of the information to criminally investigate or prosecute any alcohol or drug abuse patient.[facility] MemorialIn the event this information is protected by the Federal Confidentiality of Alcohol and Drug Abuse Patient Records regulations: The Federal rules restrict any use of the information to criminally investigate or prosecute any alcohol or drug abuse patient.[facility] Care Teams (unrecognized sec tion and content) Data Officer Relationship Specialty Start Date End Date Hugo Mendez MD [address] [place] [address] PCP - General Family Medicine 02/19/23 Flower Mcdermott CNP [address] [place] [address] Internal Medicine 02/19/23 Data Officer Relationship Specialty Start Date End Date Hugo Mendez MD [address] [place] [address] PCP - General Family Medicine 02/19/23 Flower Mcdermott, POWER GENER[employer] EQUIPMENT REPAIRER [address] [place] [address] Internal Medicine 02/19/23 Data Officer Relationship Specialty Start Date End Date Hugo Mendez MD [address] [place] [address] PCP - General Family Medicine 02/19/23 Flower Mcdermott, POWER GENER[employer] EQUIPMENT REPAIRER [address] [place] [address] Internal Medicine 02/19/23 Team Status: Active Member [...] Provider Active S tart: February 15, 2024 Data Officer Relationship Specialty Start Date End Date Hugo Mendez MD [address] [place] [address] PCP - General Family Medicine 02/19/23 Flower Mcdermott, POWER GENERATION EQUIPMENT REPAIRER [address] [facility] [place] [address] Internal Medicine 02/19/23 Hugo Mendez MD [address] [place] [address] Referring Family Medicine 12/01/23 Data Officer Relationship Specialty Start Date End Date Hugo Mendez MD [address] [place] [address] PCP - General Family Medicine 02/19/23 Flower Mcdermott, POWER GENER[employer] EQUIPMENT REPAIRER [address] [facility] [place] [address] Internal Medicine 02/19/23 Hugo Mendez MD [address] [place] [address] Referring Family Medicine 12/01/23 Data Officer Relationship Specialty Start Date End Date Hugo Mendez MD [address] [place] [address] PCP - General Family Medicine 02/19/23 Flower cMdermott, POWER GENERATION EQUIPMENT REPAIRER [address] [facility] [place] [address] Internal Medicine 02/19/23 Hugo Mendez MD [address] [place] [address] Referring Family Medicine 12/01/23 Data Officer Relationship Specialty Start Date End Date Hugo Mendez MD [address] [place] [address] PCP - General Family Medicine 02/19/23 Flower Mcdermott, POWER GENER[employer] EQUIPMENT REPAIRER [address] [facility] [place] [address] Internal Medicine 02/19/23 Hugo Mendez MD [address] [place] [address] Referring Family Medicine 12/01/23 Data Officer Relationship Specialty Start Date End Date Hugo Mendez MD [address] [place] [address] PCP - General Family Medicine 02/19/23 Flower Mcdermott, POWER GENER[employer] EQUIPMENT REPAIRER [address] [facility] [place] [address] Internal Medicine 02/19/23 Hugo Mendez MD [address] [place] [address] Referring Family Medicine 12/01/23 Data Officer Relationship Specialty Start Date End Date Hugo Mendez MD [address] [place] [address] PCP - General Family Medicine 02/19/23 Flower Mcdermott, POWER GENERATION EQUIPMENT REPAIRER [address] [facility] [place] [address] Internal Medicine 02/19/23 Hugo Mendez MD [address] [place] [address] Referring Family Medicine 12/01/23 Data Officer Relationship Specialty Start Date End Date Hugo Mendez MD [address] [place] [address] PCP - General Family Medicine 02/19/23 Flower Mcdermott, POWER GENER[employer] EQUIPMENT REPAIRER [address] [facility] [place] [address] Internal Medicine 02/19/23 Hugo Mendez MD [address] [place] [address] Referring Family Medicine 12/01/23 Data Officer Relationship Specialty Start Date End Date Hugo Mendez MD [address] [place] [address] PCP - General Family Medicine 02/19/23 Flower Mcdermott, POWER GENER[employer] EQUIPMENT REPAIRER [address] [facility] [place] [address] Internal Medicine 02/19/23 Hugo Mendez MD [address] [place] [address] Referring Family Medicine 12/01/23 Data Officer Relationship Specialty Start Date End Date Hugo Mendez MD [address] [place] [address] PCP - General Family Medicine 02/19/23 Flower Mcdermott, POWER GENERATION EQUIPMENT REPAIRER [address] [facility] [place] [address] Internal Medicine 02/19/23 Hugo Mendez MD [address] [place] [address] Referring Family Medicine 12/01/23 Data Officer Relationship Specialty Start Date End Date Hugo Mendez MD [address] [place] [address] PCP - General Family Medicine 02/19/23 Flower Mcdermott, POWER GENERATION EQUIPMENT REPAIRER [address] [facility] [place] [address] Internal Medicine 02/19/23 Hugo Mendez MD [address] [place] [address] Referring Family Medicine 12/01/23 Data Officer Relationship Specialty Start Date End Date Hugo Mendez MD [address] [place] [address] PCP - General Family Medicine 02/19/23 Flower Mcdermott, POWER GENERATION EQUIPMENT REPAIRER [address] [facility] [place] [address] Internal Medicine 02/19/23 Hugo Mendez MD [address] [place] [address] Referring Family Medicine 12/01/23 Data Officer Relationship Specialty Start Date End Date Hugo Mendez MD [address] [place] [address] PCP - General Family Medicine 02/19/23 Flower Mcdermott, POWER GENERATION EQUIPMENT REPAIRER [address] [facility] [place] [address] Internal Medicine 02/19/23 Hugo Mendez MD [address] [place] [address] Referring Family Medicine 12/01/23 Data Officer Relationship Specialty Start Date End Date Hugo Mendez MD [address] [place] [address] PCP - General Family Medicine 02/19/23 Flower Mcdermott, POWER GENERATION EQUIPMENT REPAIRER [address] [facility] [place] [address] Internal Medicine 02/19/23 Hugo Mendez MD [address] [place] [address] Referring Family Medicine 12/01/23 Data Officer Relationship Specialty Start Date End Date Hugo Mendez MD [address] [place] [address] PCP - General Family Medicine 02/19/23 Flower Mcdermott, POWER GENERATION EQUIPMENT REPAIRER [address] [facility] [place] [address] Internal Medicine 02/19/23 Hugo Mendez MD [address] [place] [address] Referring Family Medicine 12/01/23 Data Officer Relationship Specialty Start Date End Date Hugo Mendez MD [address] [place] [address] PCP - General Family Medicine 02/19/23 Flower Mcdermott, POWER GENERATION EQUIPMENT REPAIRER [address] [facility] [place] [address] Internal Medicine 02/19/23 Data Officer Relationship Specialty Start Date End Date Hugo Mendez MD [address] [place] [address] PCP - General Family Medicine 02/19/23 Flower Mcdermott, POWER GENERATION EQUIPMENT REPAIRER [address] [facility] [place] [address] Internal Medicine 02/19/23 Data Officer Relationship Specialty Start Date End Date Hugo Mendez MD [address] [place] [address] PCP - General Family Medicine 02/19/23 Flower Mcdermott, POWER GENERATION EQUIPMENT REPAIRER [address] [facility] [place] [address] Internal Medicine 02/19/23 Hugo Mendez MD [address] [place] [address] Referring Family Medicine 12/01/23 Data Officer Relationship Specialty Start Date End Date Hugo Mendez MD [address] [place] [address] PCP - General Family Medicine 02/19/23 Flower Mcdermott, POWER GENERATION EQUIPMENT REPAIRER [address] [facility] [place] [address] Internal Medicine 02/19/23 Hugo Mendez MD [address] [place] [address] Referring Family Medicine 12/01/23 Data Officer Relationship Specialty Start Date End Date Hugo Mendez MD [address] [place] [address] PCP - General Family Medicine 02/19/23 Flower Mcdermott, POWER GENERATION EQUIPMENT REPAIRER [address] [facility] [place] [address] Internal Medicine 02/19/23 Hugo Mendez MD [address] [place] [address] Referring Family Medicine 12/01/23 Goals (unrecognized section [...] BE BASED ON THE PRIMARY CLINICAL RECORDS. [facility]. provides no warranty or guarantee of the accuracy or completeness of information in this document.
== END 2024-10-03 20:14 | disposition home or self-care (01) ==
LOC: LAB 20:13
PROVIDERS: PCP Nurse Practitioner Family; Visit Provider Obstetrics & Gynecology
DX: Z01.419 Encounter for gynecological examination (general) (routine) without abnormal findings (principal)
CPT/HCPCS: 87624; 88175

== ENCOUNTER 2024-10-07 14:35 | Outpatient (OUT) | payer OTHER, SELFPAY ==
[2024-10-07 15:08] LABS: Basophils Percent Auto 0.3 % (0.2-2.0); Eosinophils Absolute Auto 0.1 10^3/uL (0.0-0.7); Eosinophils Percent Auto 1.1 % (0.9-7.0); Hematocrit 39.4 % (36.0-48.0); Hemoglobin 13.2 g/dL (12.0-16.0); Immature Granulocytes Abs Auto 0.01 10^3/uL (0.00-0.03); Immature Granulocytes Pct Auto 0.1 % (0.0-0.5); Lymphocytes Absolute Auto 2.8 10^3/uL (1.2-3.8); Lymphocytes Percent Auto 37.2 % (20.5-60.0); Mean Corpuscular HGB Conc 33.5 g/dL (29.9-35.2); Mean Corpuscular Hemoglobin 31.6 pg (26.7-34.0); Mean Corpuscular Volume 94.3 fL (81.0-99.0); Mean Platelet Volume 9.9 fL (9.5-13.5); Monocytes Absolute Auto 0.5 10^3/uL (0.3-0.8); Monocytes Percent Auto 6.6 % (1.7-12.0); Neutrophils Absolute Auto 4.1 10^3/uL (1.4-6.5); Neutrophils Percent Auto 54.7 % (43.0-75.0); Platelet Count 234 10^3/uL (150-450); Red Blood Count 4.18 10^6/uL (4.20-5.40); Red Cell Distribution Width 12.9 % (11.0-15.0); White Blood Count 7.5 10^3/uL (4.0-11.0)
[2024-10-07 15:42] LABS: Estimated Average Glucose 105 mg/dL; Glycohemoglobin A1C 5.3 % (4.5-6.2)
[2024-10-07 15:45] LABS: Free T4 0.64 ng/dL (0.76-1.46)
[2024-10-07 15:49] LABS: Thyroid Stimulating Hormone 2.293 uIU/mL (0.358-3.740)
== END 2024-10-07 14:36 | disposition home or self-care (01) ==
LOC: LAB 14:36
PROVIDERS: PCP Nurse Practitioner Family; Visit Provider Obstetrics & Gynecology
DX: R53.83 Other fatigue (principal)
CPT/HCPCS: 36415; 83036; 84439; 84443; 85025

== ENCOUNTER 2025-08-04 12:52 | Outpatient (OUT) | payer OTHER, SELFPAY ==
--- NOTE | 2025-08-04 12:56 | CT_ITS ---
The [address] [address] Patient Name: NISHA MONTAGUE MRN: [id number] date: 1975 Sex: F Assigned Patient Location: CT Current Patient Location: CT Accession/Order Number: [id number] Exam Date: 08/04/2025 13:10 Report Date: 08/04/2025 15:27 At the request of: ALEJANDRO MCDERMOTT Procedure: CT chest wo con CT CHEST WITHOUT IV CONTRAST: CLINICAL HISTORY: pulmonary nodule COMPARISON: Outside CT chest 06/14/2025 no report available. TECHNIQUE: Spiral images were obtained through the chest without IV contrast. This CT exam was performed using one or more following dose reduction techniques: Automated exposure control, adjustment of the mA and/or kV according to patient size, or use of iterative reconstruction technique. FINDINGS: Mediastinum:Vascular appears normal in caliber. Pulmonary trunk appears nondilated. No pleural effusion. Calcified right hilar lymph node. Multiple prominent mediastinal lymph nodes. The esophagus is grossly unremarkable. Lungs:Emphysema. No lung consolidation pneumothorax or pleural effusion. Mild dependent atelectatic changes. Stable 6 mm noncalcified pulmonary nodule right upper lobe series 4 image 44. Abd:Cholelithiasis. No acute process. Soft tissues/Bones: No acute findings. Osseous structures demonstrate degenerative change. CT/CT chest wo con IMPRESSION: Stable 6 mm pulmonary nodule right upper lobe. Emphysema. Cholelithiasis. Fleischner Society guidelines for follow-up and management of incidentally detected pulmonary nodules: Nodule size equals 6-8 mm In a low-risk patient, CT at 6-12 months, then consider CT at 18-24 months. In a high-risk patient, CT at 6-12 months, then CT at 18-24 months. - Low risk patients include individuals with minimal or absent history of smoking and other known risk factors. - High risk patients include individuals with a history or smoking or known risk factors. Radiology 2017 http://pubs.rsna.org/doi/full/10.1148/[email or web address] Impression dictated by: Ruben Kelsey Jr., D.O. 08/04/2025 3:27 PM Dictation Location: [place] [address] Electronically authenticated by: [id number] Y Date: 08/04/2025 15:27
--- OUTSIDE RECORDS SUMMARY | 2025-08-04 12:58 | XMS_ITS | CCD ---
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 complaint as listed below, and is seen in consultation requested by PA. Rakesh Thompson for an opinion regarding these symptoms. My final recommendations will be communicated back to the requesting physician by way of shared medical record or letter via US mail. Dear Ms. Thompson, Thank you for the referral. Please let me know if you have any questions. Individuals who were included in, or assisted with the encounter were: Aurora Eddi Ji (friend) Bhavana Mckay MD Chief Complaint/Issues: Aurora Montague is a 49 year old female seen in the [facility] for: Frequent falls Vision changes - right eye blurred vision, color vision seems to be ok. Paresthesias HPI: She has always been clumsy and in the 6 months she fell 10 times. No significant injuries and just worsens her neck and back. She has been in physical therapy for back and other things for 20 yrs. She usually trips and there is no dizziness involved. Has had episodes of feeling like she is going to black out and thought it was due to hyperglycemic and was told that by her [employer] DRIVER (F[place] Dunham) at her PCP's nurse. She is afraid of that as she has a family hx of diabetes, runs strong on her mother's side. She has a strong family hx of fibromyalgia and one aunt has MS and MD. 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 Summer of last year she noticed that intermittently she will feel numbness from neck down. Sometimes she will feel like novocaine in the mouth area and if she scratches it she will feel tingly. ROM of motion above the 90 degrees is not as good. She drops things all the time and sometimes it will go a little numb but mostly tingling and nerve pain. Nerve pain in the right hand is more than left but left hand cramps up more. No family hx of arthritis known. PTSD and anxiety is under control. Mother young due to complications of her diabetes with kidney failure. General Examination: BP 122/75 (BP Site: Right Arm, BP Position: Sitting, BP Cuff Size: Large Adult) Pulse 78 Temp 36.9 ?C (98.4 ?F) (Oral) Ht 170.2 cm (5' 7 ) Wt 97.5 kg (215 lb) No BMI 33.67 kg/m? General: Awake, alert, interactive, no acute distress, good nutritional status, normal development, well-kept Neurological Exam Mental Status Alert, fully oriented, attentive, with normal cognition, memory, speech and affect. Cranial Nerves Visual soliz intact. Fundi with normal discs and vasculature. Pupils reactive. Extraocular movements conjugate and full. No ptosis. No nystagmus. Facial sensation intact. Face symmetric and strong. Palate and tongue normal. XI normal. Hearing is normal Motor Examination and Coordination Motor examination with normal bulk, strength and tone. No drift. Normal rapid alternating movements and coordination. No adventitious movements or significant tremor. Neuromuscular Examination Axial Muscles Ptosis: R: none L: none Face-eye closure: normal Face-mouth closure: normal Palatal movement: normal Tongue: normal Extremity Muscles Upper Extremity Right Left Shoulder external rotation 5 5 Shoulder abduction 5 5 Elbow flexion 5 5 Elbow extension 5 5 Wrist flexion 5 5 Wrist extension 5 5 Finger flexion/tar distillation supervisor 5 5 Finger extension 5 5 First dorsal interosseous 5 Abductor digiti minimi 5 rhomboid 5 4+ Lower Extremity Right Left Hip flexion 5 5 Hip extension 5 5 Hip abduction 5 5 Hip adduction 5 5 Knee flexion 5 5 Knee extension 5 5 Ankle inversion 5 5 Ankle eversion 5 5 Extensor hallucis longus 5 5 Flexor digitorum longus 5 5 Atrophy: none Fasciculations: none Tone (Amna spasticity) UE: Right: A0=normal (none) Left: A0=normal (none) LE: Right: A0=normal (none) Left: A0=normal (none) Finger taps: R: normal L: normal Foot taps: R: normal L: normal Tremor: normal Reflexes Deep tendon reflexes graded by MRC Deep Tendon Reflexes Right Left Biceps 1+ 1+ Triceps 2 2 Brachioradialis 1+ 1+ Patellar 2 2 Achilles 0 0 Plantar Downgoing Downgoing Sensation Sensation intact to light touch, pinprick, proprioception and vibration. (more content not included)... Normal [facility] XR SHLDR >/=3V AP/ANDREA AP/OTH R LTon 10-28-2024 XR SHLDR >/=3V AP/ANDREA AP/OTHR LT * * *Final Report* * * DATE OF EXAM: Oct 28 2024 3:36PM M2X 5252 - XR SHLDR >/=3V AP/ANDREA AP/OTHR LT / PROCEDURE REASON: Left shoulder pain, unspecified chronicity * * * * Physician Interpretation * * * * HISTORY: Left shoulder pain, unspecified chronicity . TECHNIQUE: XR SHLDR >/=3V AP/ANDREA AP/OTHR LT Laterality: LEFT Number of different views (projections): 3 COMPARISON: None available. RESULT: Incomplete evaluation of the spinal fusion hardware. No acute fracture or dislocation. Acromioclavicular and glenohumeral joints are unremarkable. Acromiohumeral interval is preserved. No soft tissue swelling. There is no evidence of acute process in the included chest. No other significant abnormality. --- IMPRESSION: Normal study. Cardiac Catheterization Technologist: DAMON Transcribe Date/Time: Oct 28 2024 5:55P Dictated by : CLIFF GOTTI MD This examination was interpreted and the report reviewed and electronically signed by: CLIFF GOTTI MD on Oct 28 2024 5:56PM EST [id number] Normal [facility] XR Shoulder - left 3 Viewson 12-27-2024 IMPRESSION: Normal study. Cardiac Catheterization Technologist: DAMON Transcribe Date/Time: Oct 28 2024 5:55P Dictated by : CLIFF GOTTI MD This examination was interpreted and the report reviewed and electronically signed by: CLIFF GOTTI MD on Oct 28 2024 5:56PM [facility] DIVISION OF RADIOLOGY * * *Final Report* * * DATE OF EXAM: Oct 28 2024 3:36PM M2X 5252 - XR SHLDR >/=3V AP/ANDREA AP/OTHR LT / PROCEDURE REASON: Left shoulder pain, unspecified chronicity * * * * Physician Interpretation * * * * HISTORY: Left shoulder pain, unspecified chronicity . TECHNIQUE: XR SHLDR >/=3V AP/ANDREA AP/OTHR LT Laterality: LEFT Number of different views (projections): 3 COMPARISON: None available. RESULT: Incomplete evaluation of the spinal fusion hardware. No acute fracture or dislocation. Acromioclavicular and glenohumeral joints are unremarkable. Acromiohumeral interval is preserved. No soft tissue swelling. There is no evidence of acute process in the included chest. No other significant abnormality. --- DIVISION OF RADIOLOGY Provider, [facility] - 10/28/2024 * * *Final Report* * * DATE OF EXAM: Oct 28 2024 3:36PM M2X 5252 - XR SHLDR >/=3V AP/ANDREA AP/OTHR LT / PROCEDURE REASON: Left shoulder pain, unspecified chronicity * * * * Physician Interpretation * * * * HISTORY: Left shoulder pain, unspecified chronicity . TECHNIQUE: XR SHLDR >/=3V AP/ANDREA AP/OTHR LT Laterality: LEFT Number of different views (projections): 3 COMPARISON: None available. RESULT: Incomplete evaluation of the spinal fusion hardware. No acute fracture or dislocation. Acromioclavicular and glenohumeral joints are unremarkable. Acromiohumeral interval is preserved. No soft tissue swelling. There is no evidence of acute process in the included chest. No other significant abnormality. --- IMPRESSION IMPRESSION: Normal study. Cardiac Catheterization Technologist: DAMON Transcribe Date/Time: Oct 28 2024 5:55P Dictated by : CLIFF GOTTI MD This examination was interpreted and the report reviewed and electronically signed by: CLIFF GOTTI MD on Oct 28 2024 5:56PM EST [facility] Radiology Study observation (narrative) [facility] XR Shoulder - left 3 ViewsOr dered By: Ccf Provider on 10-28-2024 [facility] IGP,APTIMA HPV,AGE GDLNon AGE GDLN ACOG TESTING Note . [facility] Comment on above: TESTS RESULT FLAG UN ITS REF RANGE LAB Clinician Provided Cytology Information Source.............Vagina No. of containers..01 ThinPrep Vial Age Algo ACOG Adrianna... 31 FLAG LEGEND: L-Low Normal,H-High Normal,LL-Alert Low,HH-Alert High <-Panic Low,>-Panic High,A-Abnormal,AA-Critical Abnormal Performed at: 01 =G [facility] [place] [address] Amanda Vidal MD, HPV APTIMA Negative Negative [facility] Comment on above: This nucleic acid am plification test detects fourteen high- risk HPV types (16,18,31,33,35,39,45,51,52,56,58,59,66,68) without differentiation. Performed at: =G - [facility], [place] [id number] Glass Blower Helper: Amanda Vidal MD, Phone: [phone] Performed at: - [facility], [place] [id number] Glass Blower Helper: Amanda Vidal MD, Phone: [phone] IGP, APTIMA HPV, RFX 16/18,45 Note . [facility] Comment on above: TESTS RESULT FLAG UN ITS REF RANGE LAB DIAGNOSIS: 02 NEGATIVE FOR INTRAEPITHELIAL LESION OR MALIGNANCY. Specimen adequacy: 02 Satisfactory for evaluation. Performed by: Oscar Doe, Rug Shampooer (ASCP) . 02 Note: Note 02 The Pap smear is a screening test designed to aid in the detection of premalignant and malignant conditions of the uterine cervix. It is not a diagnostic procedure and should not be used as the sole means of detecting cervical cancer. Both false-positive and false-negative reports do occur. Test Methodology: Note 02 This liquid based ThinPrep(R) pap test was screened with the use of an image guided system. HPV Genotype Reflex Note 02 Criteria not met, HPV Genotype not performed. FLAG LEGEND: L-Low Normal,H-High Normal,LL-Alert Low,HH-Alert High <-Panic Low,>-Panic High,A-Abnormal,AA-Critical Abnormal Performed at: [address] [address] Amanda Vidal MD, SPATULA-ALONE VAG[facility] ALL CBC WITH AUTO DIFFon BASOPHILS ABSOLUTE AUTO 0 [facility] Basophils/100 WBC (Bld) 0.3 % 0.2 - 2.0 % [facility] Eosinophils/100 WBC (Bld) 1.1 % 0.9 - 7.0 % [facility] Erythrocyte distribution width (RBC) [Ratio] 12.9 % 11.0 - 15.0 % [facility] Hematocrit (Bld) [Volume fraction] 39.4 % 36.0 - 48.0 % [facility] Hemoglobin (Bld) [Mass/Vol] 13.2 g/dL 12.0 - 16.0 g/dL [facility] IMMATURE GRANULOCYTES ABS AUTO 0.01 [facility] Immature granulocytes/100 WBC (Bld) 0.1 % 0.0 - 0.5 % [facility] Interpretation and review of laboratory results Abnormal [facility] LYMPHOCYTES ABSOLUTE AUTO 2.8 [facility] Lymphocytes/100 WBC (Bld) 37.2 % 20.5 - 60.0 % [facility] MCH (RBC) [Entitic mass] 31.6 pg 26.7 - 34.0 pg [facility] MCHC (RBC) [Mass/Vol] 33.5 g/dL 29.9 - 35.2 g/dL [facility] MCV (RBC) [Entitic vol] 94.3 fL 81.0 - 99.0 fL [facility] MONOCYTES ABSOLUTE AUTO 0.5 [facility] Monocytes/100 WBC (Bld) 6.6 % 1.7 - 12.0 % [facility] NEUTROPHILS ABSOLUTE AUTO 4.1 [facility] Neutrophils/100 WBC (Bld) 54.7 % 43.0 - 75.0 % [facility] Platelet mean volume (Bld) [Entitic vol] 9.9 fL 9.5 - 13.5 fL [facility] TBH EO # 0.1 [facility] TBH PLT 234 [facility] TB RBC 4.18 Low [facility] TBH WBC 7.5 [facility] CLINISYNC [facility] CNPNon 10-03-2024 CNPN Telephone (LOORRM) EDDIAURORA ([id number]) 1975 F Date Time Provider Department 10/03/24 CENTRAL IMAGING OPEN MRI LOORRM During your visit today, we recorded the following information about you: Deya Stapleton 10/03/2024 4:22 PM Signed Patient came in to the office today for her MRI appointment.The patient's MRI was not authorized to proceed. I brought the patient back and explained to her that it appears she was sent a My Chart message regarding the MRI and the financial aspect of it. Patient was very understanding and I suggested that we rescheduled the appointment in case there was still a chance that the approval is still in the process. Allergies As of Date: 10/03/2024 Noted Allergy Reaction MORPHINE 07/22/2023 11 - Vomiting NSAIDS (NON-STEROIDAL ANTI-INFLAM* 3 16 - Unknown Comments: Stomach upset , GI Issues, bleeding STEROIDS (CORTICOSTEROIDS (GLUCOC*03/10/2023 16 - Unknown Comments: PT states Bleeding Date Reviewed: 09/06/2024 Reviewed by: Rakesh Thompson PA-C - Fully Assessed Reason for Visit: Appointment [186] Prescriptions as of 10/03/2024 - clonazePAM (KLONOPIN) 1 mg tablet Take 1 mg by mouth two times a day as needed for anxiety. For Anxiety - ARIPiprazole (ABILIFY) 15 mg tablet Take 1 tablet by mouth every afternoon. - buPROPion XL (WELLBUTRIN XL) 150 mg 24 hr tablet Take 150 mg by mouth once daily. - hyoscyamine (LEVSIN) 0.125 mg tablet TAKE 1 TABLET BY MOUTH TWO TIMES A DAY AT 6 AM AND 9 PM - esomeprazole (NEXIUM) 40 mg capsule Take 1 capsule by mouth two times a day before meals. - sertraline (ZOLOFT) 100 mg tablet Take 100 mg by mouth every morning. - oxybutynin ER (DITROPAN XL) 15 mg 24 hr Extended Rel Tab Take 1 tablet by mouth every afternoon. Problem List As Of Date 10/03/2024 Noted Resolved Chronic midline low back pain without sciatica *05/27/2024 Encounter Status:Closed by DEYA STAPLETON on 10/03/24 Normal [facility] Urinalysis macro (dipstick) panel (U)on 09-28-2024 Bilirubin, UA Negative Negative - 4(70) +++ mg/dL [facility] Blood, UA Positive Negative - 50 Raj/mcL [facility] Comment on above: trace-intact Clarity, UA Clear [facility] Color, UA Yellow [facility] Glucose, UA Negative Negative - 1999(110) ++++ mg/dL [facility] Interpretation and review of laboratory results Abnormal [facility] Ketones, UA Negative Negative - 160(16) ++++ mg/dL [facility] Leukocytes, UA Negative Negative - 500+++ Alex/mcL [facility] Nitrite, UA Negative Negative - Positive [facility] pH, UA 6.5 5 - 9 [facility] Protein, UA Negative Negative - 1999(20) ++++ mg/dL [facility] Spec Grav, UA 1.03 1 - 1.03 [facility] Urobilinogen, UA 1.0 0.2 - 12 mg/dL [facility] 09-[facility]24 CNOV Office Visit (SPMIND ) AURORA MONTAGUE ([id number]) 1975 F Date Time Provider Department 09/06/24 11:15 AM RAKESH THOMPSON During your visit [...] (100mg qAM), Klonopin (1mg BID) -Previously tried: [place], robaxin, diclofenac 75mg BID ,medrol dose pack [...] and [employer] plate with Dr. Harvey at [facility] Office visit 03/11/24: Here today for evaluation [...] with coughing/sneezing (more content not included)... [facility] CNTHERAPYon 07-27-2024 CNTHERAPY OT/PT/Speech Visit (SARAHPTRM) AURORA MONTAGUE ([id number]) 1975 F Date Time Provider Department 07/27/24 3:45 PM NELLA DUPONT Date Time Provider Department Center 07/27/2024 3:45 PM [id number] DUPONT Reason for Visit: PT Discharge [752] Primary Visit Diagnosis:Chronic midline low back pain without sciatica [M54.50, G89.29] Allergies As of Date: 07/27/2024 Noted Allergy Reaction MORPHINE 07/22/2023 11 - Vomiting NSAIDS (NON-STEROIDAL ANTI-INFLAM* 3 16 - Unknown Comments: Stomach upset , [...] 1 tablet by mouth every afternoon. Normal [facility] CNTHERAPYon 07-08-2024 CNTHERAPY OT/PT/Speech Visit (LOPTRM) AURORA MONTAGUE ([id number]) 1975 F Date Time Provider Department 07/08/24 1:45 PM ANGELIC POPE Date Time Provider Department Center 07/08/2024 1:45 PM [id number] POPE Reason for Visit: Physical Therapy [503] Primary Visit Diagnosis:Chronic midline low back pain without sciatica [M54.50, G89.29] Allergies As of Date: 07/08/2024 Noted Allergy Reaction MORPHINE 07/22/2023 11 - Vomiting NSAIDS (NON-STEROIDAL ANTI-INFLAM* 16 - Unknown Comments: Stomach upset , [...] Take 1 tablet by mouth every afternoon. Recep: Addendum Therapy (PT/OT/Speech/Resp) ID: [id number] 07/08/2024 2:36 PM Author: ANGELIC POPE Signed by ANGELIC POPE PT on 07/08/2024 at 2:36 PM * * * This document replaces document [id number] * * * Document text: Program_ID:[id number] Access Code: [email or web address] URL: [email or web address] Date: 07-08-2024 Prepared By: Nella Dupont Program [...] weekly - 3 sets - 10 reps ----- [facility] THERAPY NTon 07-08-2024 THERAPY NT HNO ID: [id number] Author: ANGELIC POPE PT Service: ? Author Type: Physical Therapist Type: Therapy (PT/OT/Speech/Resp) Filed: 07/08/2024 14:36 Note Text: Program_ID:[id number] Access Code: [email or web address] URL: [email or web address] Date: 07-08-2024 Prepared By: Nella Dupont Program [...] - 3 sets - 10 reps Normal [facility] SURGICAL PATHOLOGYOrdered By : Dalila Logan on 04-28-2024 Case Report Surgical Pathology Report Case: [id number] Authorizing Provider: Ashley Shah MD Collected: 04/26/2024 11:12 AM Ordering Location: Ambulatory Surgery Received: 04/26/2024 11:32 PM Pathologist: Dalila Logan MD Specimens: A) - Small Bowel, Duodenum, Biopsy, r/o celiac B) - Stomach, Antrum, Biopsy, r/o hpylori C) - Stomach, Biopsy, body r/o hpylori D) - Colon, Biopsy, random colon r/o microscopic colitis E) - Colon, Sigmoid, Polyp, polyp x1 [facility] Work Phone: Diagnosis Comment h2lkbUFqAFKdpTYwLMWr N UlwyqEuMEFskSYiR5Azvh rpXQvsRF1oDZ7rcLimiPR zzQUcJWOfQgBeg1oqi324 nDFes9crLEKDrtmatAz1z EzbO63yo9U1CoyxB31jvO AwHYC8PMRsXXAcbGAoQDE tEOP2JXHruAYyK2dgFWEj ZO3cqpgsFCulVDcoKUEzp LR5GVAsiHMlE9CyRRNaFD vnOZJfkhu9CkBoHw8bdBV yeTcyMFxwYXJkXHBsYWlu NBTrQpBxlMPjJL98hEDyc QxbNZU1NZXnuDV6YJtcML DBGYSrD0Lqa61eLDmdkvJ rJWpglKobKYYsp50zjIDb dCBFLiBccGFyfQ== [facility] Work Phone: FINAL DIAGNOSIS d1mwdAYdZMTibRNiWGJc N PegbgCrNXUumOWdN8Kfsh mdMFveDN3dWR6hoBzwdMD dxGImVTVoTcQol8lax936 gWAfd8elVRXBdzlalFe4c IshD23ou6Q5NhnrM01mcC PzEMD5RUGpNLVhrXNfYAD rIEM0GUAbvGZyM4ikYUVm UK3jyornDEpuHWppEVWtj FY9VPWsuTDzA9XpNQIeLX ozSRYagft8UcIgHy1urIB yeTcyMFxwYXJkXHBsYWlu XGZzMjBccGFyIEEuICBTb WZiqKXmptMrp8YcwaLcPJ X1z3TcpiSoTUSkbK8na3z qeJDyHR1TaE5xDK5kfATk wBFht9Wry9r0jZNsllWap EhvkAXsK1JayMRsFBJul7 joX7ujTEBhuz5nfFSzfAR 5XHBhciAtTmVnYXRpdmUg Rj3vGBN2f4Gpnko4vWYyW T7pWOOftXilJoGsqPGcXQ TqQDWmrzseHKXlWq6hDYK 0o95qF1bgXHHfmCM3eAnk XlyblLB3NORhxyMvY0Isn HJpYyBhbnRyYWwgbXVjb3 LxOOgdfHjiudIpQ3ZeyoV wB4MruAOulWD8xIaqpLIz ZD3WtfUfmLA1y58nmmQni 1vtS6svEUW6tSLpknYeWW 5iZYmnvByhe3LjP8BohgX vcmdhbmlzbXMgXHBhclxw XKMdRz5nBYY9v65tG6vtT LRbINzhMBCjm3RwaCtbJH FoQPtii2VezVYph5i1jfP uPaFwcMMef7Zor9h1hUJw thJqcBjumPGpX6HyqZKrA YPta8glC5riUIDrcb8umA GolCO3USEcxcFjHo7afRl fqA1pe3BooG7ku5sqUaZb ulgnIG1aSMRzGrCDREyyP 38sWDG2CQElm2YwHR7sd5 1zIFxwYXJccGFyIEQuICB Ox9gzwlfwobOlDQ1rZFGi iR6du9jtjKQbZI5Ed1iuv iuqCN73A95nDOS5aDAeSX 7lqWBdn9GiqyOoj8duLDE rnuTcRyPgNDShqmMvSj0h YAQtvJv8rFBnENyvHI44f J7lAPRraHBmgD0evCKbuA L4tK8oUEVnBIKtvHUqrAZ zaWFccGFyXHBhciBFLiAg Q11cy88gAZLaB49itNGrD UTanFyqYTR2s800GIThuo PaK14gs55qGrSnxVPwa1A js2j6cHBpGSxlhs8llGZs X60gmQzsESXtOP9qM4P7m XZlIGZvciBkeXNwbGFzaW WbQTJfJLKkz46vJE81DPo wYXJ9 [facility] Work Phone: Gross Description r2dlfEZlVXBgxODnARIz N OuzrsZaZQGfoXLsK3Laoa lhNZyvXC4eBX5vbNvgzKJ jfAYtYFJoDoHoo1rpe369 rPAkx3vdQIAMmxjusRu6t WotG64fc8X4XuraU28ieM EsELF6TOPxQTOauEEvKRS vXKJ0KPOriIHvE9vdUGKo KF2ubjzcLYofQMksWTZcy WL6ONDqqQInN2RhWRIaOL rnEOOtivg2ShRhWy0ozQI enVgdRJeeJobtkZmhd3Mx dCBcXGlkIDUxMDAwIFxcb vppOOe5YBMuNCbfmJAtTQ 6gqKnoPehkdXeyn6XsjAO cXGlkIDUxMDAyIFxcZGIg J3BLXEWcPpW9NJI9YSHjU Ju6HAl0CK0QIjXvZWT4GV FvJzemMpKeBXw1EXqxPO4 AVERqFRN1VkQ0GzE9RRE6 GFL9RLfllHPhQJwfk2RpZ uRcTNGlPObewoC3PGCsby ZqqErfhF2hAtXhDaJJHiI GnZHupXYZd0xsaDsmUIOz ZWSesE1sJFBuj8FupVnsJ XJccGFyZFxzYjMwXGVwaW CZd9BtWDbgHTMrPQJqyUK Wh9WqZIktaJRbwpprxbGy CLMwK6PopvHzKFtyDYKpz j5fjHpuEUGuXNK7r93xvW ohT0BcRE2sQCLlwskmf16 iwGF7kXLcaGLxSGsynpBk MMAcoxvpmG7xSO66WZtuU G5iEKaoZB8xQBSkOiRLc2 EuqFp1SGZ3Wh7wiMRsXBQ gipTzbfNoV1Jex6T3cTLq a1awzRuio7TqaPAdFA6if RCiu0eoIPVceGFpWSK0VY xcaWQgNTEwMDIgXFxkYiB PXwGhXnC9WiQ7HUf2InYv HSh1EJlvE7EVBXWhQVZ5Z xJ9LfEsOjI0EKc5ZCIEKg 6mFVDoYGhnNaH9OiZxOST 4DSAuDHu0MYJsKUcqtoEq QGdpXlldLGxbL36jaPJnB FxzYjEwNVxlcGljWHNiMT S7GSWfCvJuGq3sH8RlfSF qrPpmFI72nsElNWZOdK8r j4eomJRzAONvrzLda9YaI AxxiUikWKGfMtZlf4OnPT xlcGljWHNhMzBccGxhaW5 cZnMyMCBSZWNlaXZlZCBp tdBqy0UyTPwmilLmwwSal UclVZUmSGQffjOmPgJ3BM 0dLXIwVwOtePwnq9PpBMJ sR5QjS9I5eV3nBQVsJCCg WXG7RNStSiC2OAFkJrZmr K8lEQ18VIcnfHEznLDfbX V5GFGrmB4pl90pTILrd8I qpNFkMbvjDDAwI8CmP6Nm jqQ4NWJxogenWjypkEzsy 2VjdCBcXGlkIDUxMDAyIF gdTZPfV8DDPMBlTtT7WKT 7JVDlHAu7ZBx8XI2BFvZj IIO8RCSqBhkyGVGlMCy9S IxkRK0YZITdITY8MzQ2Xx NjHXI3NYM2KGpbdHJzHGb ga5IpMpHxOPIhXQgcytX3 KRFjaoObk2FrORGnJLXfD 1hzYjEwNVxmczIyIEMuIF J2j42dS4vcQLWrf3TgjJn wYXJccGFyZFxzYjMwXGVw pPHDa6PgKGpjNZLeTMWxj ZYXa5IlBRraxFTnlgmrxl LoTOQwG6IcysXrFFwlNMW igr5yzSqzHNKyNYX9a49j eMmtH6HiSM7pNBOyfiujx 20psFP5zYKqgPGhVOjgih FaDVDowkelmE5qEW62EYs bPI1pCLnsGC0tADNdQgZQ e3LhtSw8FZE2Zu0wpFMyN PKyeaYmmsMbO2Amh4X3mY Bpq3hqkLbzl0VhxNVmBS5 xqFWnd5kkHOGgtAFcPZM2 IFxcaWQgNTEwMDIgXFxkY wBFNgLyPnC5PaN3CGy9Nt ExWKi4LDcmY7UWHJMgPPL 5QfO1NJV1QdX0VDa7YVDO Qn5fSNDsBYwrFaV2BvMmR GT1AKGcONd9KJTbOMqrdl PhDFxsDjlhPZxoJ06ndQT yZFxzYjEwNVxlcGljWHNi EOU7JRLhBgVmFR1aX59zq 00zWCSgb1OwuXkaRXTugE ThNHhjAqZfSJPvcBLXq1T aBEtaEJTsCRZswESYa3Nz MFxwbGFpblxmczIwIFJlY 0XpssMyMHhqDACvxl7mwM qmXUFdFWIogOv6yDHyCWP idUXxSFTsq6OhhNOnKKSh a2W2YDKdq4Q9NZJhB4cxK TixcVvuAsJ0boBbPmRxrP QkMsPdpHKvOmCvE68uZHW deRNaoJict3RbvTp1xLXg MPjmTD5gLPMpTIPyRMT0X Z08LMMykNCgKGI8NF9hnW saBBP2XRodRNRfE9CoN6D gRVukQHG9BDXlUlOyXJMx KX5THoRbUND8OizfERK8A sD7MYj2MAQYHzHhCpEfMY NtLoe4MMkpCQq3LLe7RFn RFjMbMtF7UgPkJaFnCEN3 NDUxNSBcXHQgMiBcXHNzI ZEoKOdipJKvLH3juAxyZH OoBATzRHP9BGJmyCFCs6U fSDFhGrUeLlMJMgHLa7ys gjrgB3xjrC0hOEqbQE9rr XZlbRXbRLSmorTfx6WmXF xlcGljWHNiMzBccGxhaW5 cZnMyMCBSZWNlaXZlZCBp ypBgj0MuULjxasLjjrUvm oDlmXakI2Rdc1AsnNBqYC Med0K5XVAqb9M2WIFnTOV owIYghqugTT8wSZnwVU5y VTphML5mEIJxHgDWy8Umy Dn1BDP6Rn2cdRDjDRTeev JunrAyE7Yoz7A7zIJeASk bYCQbjTDlAFyuFKCmS6Jz SnVuZSAyNiwgMjAyNCAxO dAjPKERPUYdanYSay9xuk FqvXVkzO9sxOjmfjRgBFK uo9GwWAMoOFZeP9jgdnFz YC0hBAIfyQ9vRkpfZHCaZ CBFdWNsaWQgQXZlLiwgQ2 qspkBlPS0eQUPZAVJ2AFI 7QKaeKAPdu0EvLDpipRot KGTfVdZ4TAYviNTbYRS6Y R0nnMvhNVIoT1IxJ0Stla J6TUNxbk7= [facility] Work Phone: Performing Lab x3alsVXwFAHwpDXjFvWc M WPzGIYuk6azLZVnaQKuUe EwMzNcZnRuYmpcdWMxXGR eAkTrt8kar543nOOig1tt VREeUrN6nSGwSIGxeHCkM 525UKOmSGhry4nyj1WjKG LcaVKdm9T1BXEVadguiEj 2fVdeV61lj9Y1ZvsfE4xf KKJzDHKlO3FpTE9zXWAqU fr1RBC1GNI7UJNvOUAxM4 UwXH3nKGOpjGAaXOh1t7w fhQtcXJKjZJU5a4eaQIkr neJmRW1qip6kxZa7l8spb zEgRGVmYXVsdCBQYXJhZ3 MyqZujFm8oePi2jHknPrm bKAV7Xcr4YP0trm71emd6 jPkvDOXvsfjqGrW3FBvwX GPhokzaPIu2ZFnsPAYllV K9VHXojFWqG9ZzQLmbNY6 cadf9ZYD2HJvtJDXsOtJ5 NDBcaGVhZGVyeTcyMFxmb 509SNX0RuEgPO7bG7Zia3 V6vL4kkSHhFDGnpBXaEcR bZHMezc8ynVKaITlna0Un KOT0tlU8iCNhcPItWKAzL L84Uxwdz3DnXiodh2WnL5 5rpEV9FPdbo4grSP3hOvL 8viGoOKieo0entM0sRhQ6 YGbcOK2cFA5fTKOdcG8wg mxjXHBnYnJkcmhlYWRccG ykygBgOk7uzUsqBTS1YGd sS4ebkB4eJwN9FSvmB4bi hA4sUHy8WAntvJO2UNIzx Q2tIZ6cndozn2blELilMW juSKBtcjA0sqZcGMIcaFL lD5BgcH7dIQPyGA9voeam b7pdNAK2EOhcCUGlWRO0G wEpUMIkd6Tzsmc2DdQqm4 PnpRDsXDutD42al247NZR aigAoH0fvpNNfcekhhNLy jhwjDUsllgX7FOCjFTFoN WluXGYxXGZzMjBcbGFuZz EwMzNcaGljaFxmMVxkYmN nFQAxEIytP9nfLlXwGfQb BTLOfQGoqt1prTkuPNhqu DOcbAWmdHJ6zE9qRDVkky Ihdv1iKMByaEBEiRG3PVy kduAkK9qkgogcZPT7GRRa ZSA3A0fxNGOGqgIeEXGiR YWkiUOqYEFFULF0ABO8EO HnMKZOMWBoQRM3SAY8QDI wOTRccGFyXHBhclxwYXJk XHBsYWluXGYwXGZzMjRcc LxjcJ1wXhUrOtHrTLayRN 6oPKDhR6khvYOzETBmPMK kA5iiWxGgfJ1blLngPEsv ZjJcZnMyMFxsdHJjaCBMY FTfmyD0n8F5NLitoIJlot xmMVxmczIwXGxhbmcxMDM eLRrjZ5shDzUpHYGykHtb CBrzz2OnGTJuVYMbLbFxF ClhDDH9w9Q1UIedpEKkww UGGnVJYE9ayQNtjmoeJY2 ELlxwbGFpblxmMVxmczIy TQrpgzmaRADnMHflJ5jqC jVuAZGemHzbDGpjz0CpXR YxXGZzMjJccGFyfQ== [facility] Work Phone: [facility] Work Phone: EGD Study observation Narrat maximo 04-26-2024 [facility] Gastroenterology Gastrointestinal Endoscopy Patient Name: Aurora Montague Procedure Date: 04/26/2024 11:07 AM Date of : 1975 Admit Type: Outpatient Age: 49 Room: [place] [address] Gender: Female Note Status: Finalized Attending MD: Ashley Shah MD, [id number] Procedure: Upper GI endoscopy Indications: Dyspepsia, Heartburn, [...] verified by the physician, the nurse, the sampler pickup and the cardiopulmonary technician and eeg tech in the procedure room. Mental Status Examination: [...] Normal hypopharynx. (more content not included)... [facility] Radiology Study observation (narrative) [facility] Flexible sigmoidoscopy study on 04-26-2024 [facility] Gastroenterology Gastrointestinal Endoscopy Patient Name: Aurora Montague Procedure Date: 04/26/2024 11:20 AM Date of : 1975 Admit Type: Outpatient Age: 49 Room: [facility] Gender: Female Note Status: Finalized Attending MD: Ashley Shah MD, [id number] Procedure: Colonoscopy Indications: Lower abdominal pain, Rectal [...] verified by the physician, the nurse, the sampler pickup and the cardiopulmonary technician and eeg tech in the procedure room. Mental Status Examination: [...] bowel preparation was evaluated using the BBPS ([place] Bowel Preparation Scale) with scores of: Right [...] MAC anesthesia (more content not included)... [facility] Radiology Study observation (narrative) [facility] CT Abdomen and Pelvis W cont [...] any questions regarding this interpretation, please call [phone]. If you are unable to reach us at the number above, please feel free to contact [facility] eRadiology at [phone]. DIVISION OF RADIOLOGY * * *Final Report* * * DATE OF EXAM: Mar 21 2024 8:39AM [facility] 0530 - CT ABD/PEL W IVCON / [...] Lymph nodes: No abdominal or pelvic lymphadenopathy. Mesentery/Peritoneum: No ascites or mass. Retroperitoneum: No mass. [...] No additional findings. DIVISION OF RADIOLOGY Provider, [facility] - 03/21/2024 * * *Final Report* * * DATE OF EXAM: Mar 21 2024 8:39AM [facility] 0530 - CT ABD/PEL W IVCON / [...] Lymph nodes: No abdominal or pelvic lymphadenopathy. Mesentery/Peritoneum: No ascites or mass. Retroperitoneum: No mass. [...] any questions regarding this interpretation, please call [phone]. If you are unable to reach us at the number above, please feel free to contact [facility]iology at [phone]. [facility] Radiology Study observation (narrative) [facility] CT Abdomen and Pelvis W cont rast IVOrdered By: Ccf Provider on 03-21-2024 [facility] CBC W Auto Differential pane l (Bld)on 02-29-2024 Basophils (Bld) [#/Vol] 0.03 10*3/uL [facility] Basophils/100 WBC (Bld) 0.4 % [facility] Differential cell count method Nom (Bld) Auto [facility] Eosinophils (Bld) [#/Vol] 0.06 10*3/uL [facility] Eosinophils/100 WBC (Bld) 0.8 % [facility] Erythrocyte distribution width (RBC) [Ratio] 12.9 % 11.5 - 15.0 % [facility] Hematocrit (Bld) [Volume fraction] 42.9 % 36.0 - 46.0 % [facility] Hemoglobin (Bld) [Mass/Vol] 14.6 g/dL 11.5 - 15.5 g/dL [facility] Immature granulocytes (Bld) [#/Vol] [facility] Immature granulocytes/100 WBC (Bld) 0.1 % [facility] Lymphocytes (Bld) [#/Vol] 2.44 10*3/uL [facility] Lymphocytes/100 WBC (Bld) 34.0 % [facility] MCH (RBC) [Entitic mass] 32.4 pg 26.0 - 34.0 pg [facility] MCHC (RBC) [Mass/Vol] 34.0 g/dL 30.5 - 36.0 g/dL [facility] MCV (RBC) [Entitic vol] 95.1 fL 80.0 - 100.0 fL [facility] Monocytes (Bld) [#/Vol] 0.50 10*3/uL [facility] Monocytes/100 WBC (Bld) 7.0 % [facility] Neutrophils (Bld) [#/Vol] 4.13 10*3/uL [facility] Neutrophils/100 WBC (Bld) 57.7 % [facility] Nucleated RBC (Bld) [#/Vol] [facility] Nucleated RBC/100 WBC (Bld) [Ratio] 0.0 % /100 WBC [facility] Platelet mean volume (Bld) [Entitic vol] 10.8 fL 9.0 - 12.7 fL [facility] Platelets (Bld) [#/Vol] 253 10*3/uL [facility] RBC (Bld) [#/Vol] 4.51 10*6/uL 3.90 - 5.2 0 m/uL [facility] WBC (Bld) [#/Vol] 7.17 10*3/uL [facility] Comprehensive metabolic 2000 panelon 02-29-2024 Albumin [Mass/Vol] 4.5 g/dL 3.9 - 4.9 g/dL [facility] ALP [Catalytic activity/Vol] 75 U/L 34 - 123 U/L [facility] ALT [Catalytic activity/Vol] 17 U/L 7 - 38 U/L [facility] Anion gap [Moles/Vol] 11 mmol/L 9 - 18 mmol/L [facility] AST [Catalytic activity/Vol] 17 U/L 13 - 35 U/L [facility] Bilirubin [Mass/Vol] 0.5 mg/dL 0.2 - 1 .3 mg/dL [facility] Calcium [Mass/Vol] 9.3 mg/dL 8.5 - 10. 2 mg/dL [facility] Chloride [Moles/Vol] 104 mmol/L 97 - 10 5 mmol/L [facility] CO2 [Moles/Vol] 24 mmol/L 22 - 30 mmol/L [facility] Creatinine [Mass/Vol] 1.03 mg/dL High 0.58 - 0.96 mg/dL [facility] GFR/1.73 sq M.predicted among non-blacks MDRD (S/P/Bld) [Vol rate/Area] 68 mL/min/{1.73_m2} - PINF [facility] Comment on above: Estimated Glomerular Filtration Rate [...] [Mass/Vol] 91 mg/dL 74 - 99 mg/dL [facility] Comment on above: The [place] Diab[employer] s Association (ADA) provides guidance for [...] Standards of Medical Care in Diabetes 2016, [place] [employer]. Diabetes Care. 2016.39(Suppl 1). Interpretation and review of laboratory results Abnormal [facility] Potassium [Moles/Vol] 4.3 mmol/L 3.7 - 5.1 mmol/L [facility] Protein [Mass/Vol] 7.2 g/dL 6.3 - 8.0 g/dL [facility] Sodium [Moles/Vol] 139 mmol/L 136 - 144 mmol/L [facility] Urea nitrogen [Mass/Vol] 11 mg/dL 7 - 21 mg/dL [facility] XR Lumbar spine AP and Later panda 02-19-2024 IMPRESSION: Mild to moderate lumbar degenerative changes. Cardiac Catheterization Technologist: DAMON Transcribe Date/Time: Feb 19 2024 4:22P Dictated by : SARAH SEBASTIAN MD This examination was interpreted and the report reviewed and electronically signed by: VEE ALEXANDER MD on Feb 19 2024 6:07PM [facility] DIVISION OF RADIOLOGY * * *Final Report* [...] of hip osteoarthritis. DIVISION OF RADIOLOGY Provider, Bobbi Solo - 02/19/2024 * * *Final Report* * [...] IMPRESSION: Mild to moderate lumbar degenerative changes. Cardiac Catheterization Technologist: DAMON Transcribe Date/Time: Feb 19 2024 4:22P Dictated by : SARAH SEBASTIAN MD This examination was interpreted and the report reviewed and electronically signed by: VEE ALEXANDER MD on Feb 19 2024 6:07PM EST [facility] Radiology Study observation (narrative) [facility] XR Lumbar spine AP and Later alOrdered By: Ccf Provider on 02-19-2024 [facility] MR Cervical spine WO contras ton 04-21-2023 IMPRESSION: Cervical spondylosis and postoperative changes. Mild spinal canal stenosis at C3-C4. Varying degrees of up to moderate to severe foraminal stenoses, most notable at C5-C6 Anatomic Variant: None. Assume 7 cervical vertebrae with counting from the craniocervical junction. Cardiac Catheterization Technologist: PSCB Transcribe Date/Time: Apr 21 2023 7:54A Dictated by : NATALY ROBLERO DO This examination was interpreted and the report reviewed and electronically signed by: NATALY ROBLERO DO on Apr 21 2023 8:02AM [facility] DIVISION OF RADIOLOGY * * *Final Report* * * DATE OF EXAM: Apr 20 2023 4:35PM [facility] 0297 - MRI CERVICAL SPINE WO [...] foramina are patent. DIVISION OF RADIOLOGY Provider, Bobbi Solo - 04/21/2023 * * *Final Report* * * DATE OF EXAM: Apr 20 2023 4:35PM [facility] 0297 - MRI CERVICAL SPINE WO [...] vertebrae with counting from the craniocervical junction. Cardiac Catheterization Technologist: PSCB Transcribe Date/Time: Apr 21 2023 7:54A Dictated by : NATALY ROBLERO DO This examination was interpreted and the report reviewed and electronically signed by: NATALY ROBLERO DO on Apr 21 2023 8:02AM EST [facility] MR Cervical spine WO contras tOrdered By: Ccf Provider on 04-21-2023 [facility] MR Cervical spine WO contras ton 04-20-2023 Radiology Study observation (narrative) [facility] EMG(NEURO/NI)on 04-03-[address] [facility] [address] Cervical spine WO contras ton 03-25-2023 IMPRESSION: Multilevel degenerative changes of the cervical spine, most pronounced at C5-C6 and moderate bilateral neural foraminal narrowing. Anatomic Variant: None. Assume 7 cervical vertebrae with counting from the craniocervical junction. Cardiac Catheterization Technologist: DAMON Transcribe Date/Time: Mar 25 2023 4:30P Dictated by : RORO SHER MD This examination was interpreted and the report reviewed and electronically signed by: RORO SHER MD on Mar 25 2023 4:37PM [facility] DIVISION OF RADIOLOGY * * *Final Report* * * DATE OF EXAM: Mar 25 2023 3:37PM [facility] 0505 - CT CERVICAL SPINE WO IVCON [...] and fusion extending from C4 to C7. Watch Inspector Final Movement (topogram) images: No significant findings. Alignment: Alignment [...] foramina are patent. DIVISION OF RADIOLOGY Provider, Bobbi Constantino [facility] - 03/25/2023 * * *Final Report* * * DATE OF EXAM: Mar 25 2023 3:37PM [facility] 0505 - CT CERVICAL SPINE WO IVCON [...] and fusion extending from C4 to C7. Watch Inspector Final Movement (topogram) images: No significant findings. Alignment: Alignment [...] vertebrae with counting from the craniocervical junction. Cardiac Catheterization Technologist: PSCB Transcribe Date/Time: Mar 25 2023 4:30P Dictated by : RORO SHER MD This examination was interpreted and the report reviewed and electronically signed by: RORO SHER MD on Mar 25 2023 4:37PM EST [facility] Radiology Study observation (narrative) [facility] CT Cervical spine WO contras tOrdered By: Ccf Provider on 03-25-[address] [facility] [address] FACIAL BONES W CONon 05-0 CT FACIAL BONES W CON EXAMINATION: CT FACIAL BONES W CON HISTORY: Toothache left jaw pain and facial pain COMPARISON: CT from [facility] 11/05/2016 of the cervical spine TECHNIQUE: 100 [...] substantially changed as compared to study from [facility] on 11/05/2016 indicating this is a benign reactive lymph node. 5. No evidence for sinusitis. 6. No evidence for facial bone fracture. Electronically authenticated by: KELLEE CANO Date: 2023-03-08 20:44 Normal [facility] CBC AUTO DIFFon 03-02-2023 BASO # 0.0 103/ul Normal 0.0-0.[address] [facility] Comment on above: Performed By: #### I NSULIN #### [facility] [address] [address] [address] Milad Garcia Basophils/100 WBC (Bld) 0.4 % Normal 0.2-2.[address] [facility] Comment on above: Performed By: #### I NSULIN #### [facility] [address] [address] [address] Milad Garcia EO # 0.1 103/ul Normal 0.0-0.[address] [facility] Comment on above: Performed By: #### I NSULIN #### [facility] [address] [address] [address] Milad Garcia Eosinophils/100 WBC (Bld) 1.3 % Normal 0.9-7.[address] [facility] Comment on above: Performed By: #### I NSULIN #### [facility] [address] [address] [address] Milad Garcia Erythrocyte distribution width (RBC) [Ratio] 12.9 % Normal 11.0-15.[address] [facility] Comment on above: Performed By: #### I NSULIN #### [facility] [address] [address] [address] Milad Garcia Hematocrit (Bld) [Volume fraction] 40.2 % Normal 36.0-48.[address] [facility] Comment on above: Performed By: #### I NSULIN #### [facility] [address] [address] [address] Milad Garcia Hemoglobin (Bld) [Mass/Vol] 13.6 g/dL Normal 12.0-16.[address] [facility] Comment on above: Performed By: #### I NSULIN #### [facility] [address] [address] [address] Milad Garcia IG # 0.02 10e3/ul Normal 0.00-0.03 [facility] Comment on above: Performed By: #### I NSULIN #### [facility] [address] [place] [address] Dr. Milad Garcia IG % 0.3 % Normal 0.0-0.[address] [facility] Comment on above: Performed By: #### I NSULIN #### [facility] [address] [place] [address] Dr. Milad Garcia LYMPH # 2.8 103/ul Normal 1.2-3.8 [facility] Comment on above: Performed By: #### I NSULIN #### [facility] [address] [place] [address] Dr. Milad Garcia Lymphocytes/100 WBC (Bld) 37.5 % Normal 20.5-60.0 [facility] Comment on above: Performed By: #### I NSULIN #### [facility] [address] [place] [address] Dr. Milad Garcia MANUAL DIFF REQ NO Normal [facility] Comment on above: Performed By: #### I NSULIN #### [facility] [address] [place] [address] Dr. Milad Garcia MCH (RBC) [Entitic mass] 31.6 pg Normal 26.7-34.0 [facility] Comment on above: Performed By: #### I NSULIN #### [facility] [address] [place] [address] Dr. Milad Garcia MCHC (RBC) [Mass/Vol] 33.8 g/dL Normal 29.9-35.2 [facility] Comment on above: Performed By: #### I NSULIN #### [facility] [address] [place] [address] Dr. Milad Garcia MCV (RBC) [Entitic vol] 93.3 fL Normal 81.0-99.0 [facility] Comment on above: Performed By: #### I NSULIN #### [facility] [address] [address] [address] Milad Garcia MONO # 0.6 103/ul Normal 0.3-0.8 [facility] Comment on above: Performed By: #### I NSULIN #### [facility] [address] [address] [address] Milad Garcia Monocytes/100 WBC (Bld) 8.0 % Normal 1.7-12.[address] [facility] Comment on above: Performed By: #### I NSULIN #### [facility] [address] [place] [address] Dr. Milad Garcia NEUT # 3.9 103/ul Normal 1.4-6.[address] [facility] Comment on above: Performed By: #### I NSULIN #### [facility] [address] [place] [address] Dr. Milad Garcia Neutrophils/100 WBC (Bld) 52.5 % Normal 43.0-75.[address] [facility] Comment on above: Performed By: #### I NSULIN #### [facility] [address] [place] [address] Dr. Milad Garcia Platelet mean volume (Bld) [Entitic vol] 9.4 fL Critically low 9.5-13.5 [facility] Comment on above: Performed By: #### I NSULIN #### [facility] [address] [place] [address] Dr. Milad Garcia PLT 252 103/ul Normal 150-[address] [facility] Comment on above: Performed By: #### I NSULIN #### [facility] [address] [place] [address] Dr. Milad Garcia RBC 4.31 106/ul Normal 4.20-5.[address] [facility] Comment on above: Performed By: #### I NSULIN #### [facility] [address] [place] [address] Dr. Milad Garcia WBC 7.4 103/ul Normal 4.0-11.[address] [facility] Comment on above: Performed By: #### I NSULIN #### [facility] [address] [place] [address] Dr. Milad Garcia INSULINon 02-02-2023 Insulin 15.5 uIU/mL Normal 2.6-24.[address] [facility] Comment on above: Performed By: #### I NSULIN #### [facility] [address] [place] [address] Dr. Milad Garcia OCC BLD IMMUNO SCREENon OCCULT BLOOD Positive Abnormal NEGATIVE [facility] Comment on above: Performed By: #### I NSULIN #### [facility] [address] [place] [address] Dr. Milad Garcia CBC AUTO DIFFon 01-31-2023 BASO # 0.0 103/ul Normal 0.0-0.[address] [facility] Comment on above: Performed By: #### I NSULIN #### [facility] [address] [place] [address] Dr. Milad Garcia Basophils/100 WBC (Bld) 0.1 % Critically low 0.2-2.0 [facility] Comment on above: Performed By: #### I NSULIN #### [facility] [address] [place] [address] Dr. Milad Garcia EO # 0.0 103/ul Normal 0.0-0.7 [facility] Comment on above: Performed By: #### I NSULIN #### [facility] [address] [place] [address] Dr. Milad Garcia Eosinophils/100 WBC (Bld) 0.0 % Critically low 0.9-7.0 [facility] Comment on above: Performed By: #### I NSULIN #### [facility] [address] [place] [address] Dr. Milad Garcia Erythrocyte distribution width (RBC) [Ratio] 13.1 % Normal 11.0-15.[address] [facility] Comment on above: Performed By: #### I NSULIN #### [facility] [address] [place] [address] Dr. Milad Garcia Hematocrit (Bld) [Volume fraction] 40.2 % Normal 36.0-48.[address] [facility] Comment on above: Performed By: #### I NSULIN #### [facility] [address] [place] [address] Dr. Milad Garcia Hemoglobin (Bld) [Mass/Vol] 13.8 g/dL Normal 12.0-16.0 [facility] Comment on above: Performed By: #### I NSULIN #### [facility] [address] [place] [address] Dr. Milad Garcia IG # 0.07 10e3/ul Critically high 0.00-0.03 [facility] Comment on above: Performed By: #### I NSULIN #### [facility] [address] [place] [address] Dr. Milad Garcia IG % 0.4 % Normal 0.0-0.5 [facility] Comment on above: Performed By: #### I NSULIN #### [facility] [address] [place] [address] Dr. Milad Garcia LYMPH # 3.0 103/ul Normal 1.2-3.8 [facility] Comment on above: Performed By: #### I NSULIN #### [facility] [address] [place] [address] Dr. Milad Garcia Lymphocytes/100 WBC (Bld) 18.7 % Critically low 20.5-60.0 [facility] Comment on above: Performed By: #### I NSULIN #### [facility] [address] [place] [address] Dr. Milad Garcia MANUAL DIFF REQ NO Normal [facility] Comment on above: Performed By: #### I NSULIN #### [facility] [address] [place] [address] Dr. Milad Garcia MCH (RBC) [Entitic mass] 31.7 pg Normal 26.7-34.0 [facility] Comment on above: Performed By: #### I NSULIN #### [facility] [address] [place] [address] Dr. Milad Garcia MCHC (RBC) [Mass/Vol] 34.3 g/dL Normal 29.9-35.2 [facility] Comment on above: Performed By: #### I NSULIN #### [facility] [address] [address] [address] Milad Garcia MCV (RBC) [Entitic vol] 92.4 fL Normal 81.0-99.0 [facility] Comment on above: Performed By: #### I NSULIN #### [facility] [address] [place] [address] Dr. Milad Garcia MONO # 1.0 103/ul Critically high 0.3-0.8 [facility] Comment on above: Performed By: #### I NSULIN #### [facility] [address] [place] [address] Dr. Milad Garcia Monocytes/100 WBC (Bld) 5.9 % Normal 1.7-12.0 [facility] [facility] Comment on above: Performed By: #### I NSULIN #### [facility] [address] [place] [address] Dr. Milad Garcia NEUT # 12.0 103/ul Critically high 1.4-6.5 [facility] Comment on above: Performed By: #### I NSULIN #### [facility] [address] [place] [address] Dr. Milad Garcia Neutrophils/100 WBC (Bld) 74.9 % Normal 43.0-75.0 [facility] Comment on above: Performed By: #### I NSULIN #### [facility] [address] [place] [address] Dr. Milad Garcia Platelet mean volume (Bld) [Entitic vol] 10.0 fL Normal 9.5-13.[address] [facility] Comment on above: Performed By: #### I NSULIN #### [facility] [address] [place] [address] Dr. Milad Garcia PLT 300 103/ul Normal 150-[address] [facility] Comment on above: Performed By: #### I NSULIN #### [facility] [address] [place] [address] Dr. Milad Garcia RBC 4.35 106/ul Normal 4.20-5.[address] [facility] Comment on above: Performed By: #### I NSULIN #### [facility] [address] [address] [address] Milad Garcia WBC 16.0 103/ul Critically high 4.0-11.0 [facility] Comment on above: Performed By: #### I NSULIN #### [facility] [address] [place] [address] Dr. Milad Garcia FREE THYROXINE INDEX T7on FTI 1.28 Critically low 1.30-4.50 [facility] Comment on above: Performed By: #### L IPID, TSH, CMP, T7 #### [facility] [address] [place] [address] Dr. Milad Garcia T3U 32.0 % Normal 30.0-39.0 [facility] Comment on above: Performed By: #### L IPID, TSH, CMP, T7 #### [facility] [address] [place] [address] Dr. Milad Garcia T4 [Mass/Vol] 4.00 ug/dL Critically low 4.80-13.90 [facility] Comment on above: Performed By: #### L IPID, TSH, CMP, T7 #### [facility] [address] [place] [address] Dr. Milad Garcia GLYCOHEMOGLOBIN A1Con 2022 ADA RECOMMENDATION SEE BELOW Normal [facility] Comment on above: Result Comment: ADA RECOMMENDED LIMIT 4.0 - 6.0 ADA THERAPEUTIC TARGET < 7.0 ACTION SUGGESTED > 7.0 Performed By: #### A 1C #### [facility] [address] [place] [address] Dr. Milad Garcia Glucose [Mass/Vol] 103 mg/dL Normal [facility] Comment on above: Performed By: #### A 1C #### [facility] [address] [place] [address] Dr. Milad Garcia HbA1c (Bld) [Mass fraction] 5.2 % Normal 4.5-6.2 [facility] Comment on above: Performed By: #### A 1C #### [facility] [address] [place] [address] Dr. Milad Garcia IRONon 01-31-2023 Iron [Mass/Vol] 88.0 ug/dL Normal 50.0-170.0 [facility] Comment on above: Performed By: #### I SATNAM #### [facility] [address] [place] [address] Dr. Milad Garcia LIPID PROFILEon 01-31-2023 CHOL-HDL RATIO NORM SEE BELOW Normal [facility] Comment on above: Result Comment: 3.3 - 4.4 LOW RISK 4.4 - 7.1 AVERAGE RISK 7.1 - 11.0 MODERATE RISK >11.0 HIGH RISK Performed By: #### L IPID, TSH, CMP, T7 #### [facility] [address] [address] [address] Milad Garcia Cholesterol [Mass/Vol] 194 mg/dL Normal <=200 [facility] Comment on above: Performed By: #### L IPID, TSH, CMP, T7 #### [facility] [address] [place] [address] Dr. Milad Garcia Cholesterol in HDL [Mass/Vol] 73 mg/dL Critically high 40-60 [facility] Comment on above: Performed By: #### L IPID, TSH, CMP, T7 #### [facility] [address] [place] [address] Dr. Milad Garcia Cholesterol in LDL [Mass/Vol] 105.0 mg/dL Normal [facility] Comment on above: Performed By: #### L IPID, TSH, CMP, T7 #### [facility] [address] [address] [address] Milad Garcia Cholesterol.total/Ch olesterol in HDL [Mass ratio] 2.7 {ratio} Normal [facility] Comment on above: Performed By: #### L IPID, TSH, CMP, T7 #### [facility] [address] [place] [address] Dr. Milad Garcia HDL NORMAL > or = 60 mg/dl - LO W CARDIOVASCULAR RISK <40 mg/dl - HIGH CARDIOVASCULAR RISK Normal [facility] Comment on above: Performed By: #### L IPID, TSH, CMP, T7 #### [facility] [address] [address] [address] Milad Garcia LDL CALC NORMAL SEE BELOW Normal [facility] Comment on above: Result Comment: <100 mg/dl OPTIMAL 100 - 129 mg/dl NEAR OR ABOVE OPTIMAL 130 - 159 mg/dl BORDERLINE HIGH 160 - 189 mg/dl HIGH >190 mg/dl VERY HIGH Performed By: #### L IPID, TSH, CMP, T7 #### [facility] [address] [address] [address] Milad Garcia Triglyceride [Mass/Vol] 80 mg/dL Normal <=150 [facility] Comment on above: Performed By: #### L IPID, TSH, CMP, T7 #### [facility] [address] [address] [address] Milad Garcia VLDL CALC 16.0 mg/dL Normal [facility] Comment on above: Performed By: #### L IPID, TSH, CMP, T7 #### [facility] [address] [place] [address] Dr. Milad Garcia PROF 14(COMP METB)on 023 Albumin [Mass/Vol] 4.0 g/dL Normal 3.4-5.0 [facility] Comment on above: Performed By: #### L IPID, TSH, CMP, T7 #### [facility] [address] [place] [address] Dr. Milad Garcia Albumin/Globulin [Mass ratio] 1.4 {ratio} Normal [facility] Comment on above: Performed By: #### L IPID, TSH, CMP, T7 #### [facility] [address] [place] [address] Dr. Milad Garcia ALP [Catalytic activity/Vol] 61 U/L Normal 46-116 [facility] Comment on above: Performed By: #### L IPID, TSH, CMP, T7 #### [facility] [address] [place] [address] Dr. Milad Garcia ALT [Catalytic activity/Vol] 20 U/L Normal 14-59 [facility] Comment on above: Performed By: #### L IPID, TSH, CMP, T7 #### [facility] [address] [address] [address] Milad Garcia Anion gap [Moles/Vol] 14.2 mmol/L Normal [facility] Comment on above: Performed By: #### L IPID, TSH, CMP, T7 #### [facility] [address] [address] [address] Milad Garcia AST [Catalytic activity/Vol] 7 U/L Critically low 15-37 [facility] Comment on above: Performed By: #### L IPID, TSH, CMP, T7 #### [facility] [address] [address] [address] Milad Garcia Bilirubin [Mass/Vol] 0.3 mg/dL Normal 0.2-1.0 [facility] Comment on above: Performed By: #### L IPID, TSH, CMP, T7 #### [facility] [address] [place] [address] Dr. Milad Garcia Calcium [Mass/Vol] 9.0 mg/dL Normal 8.5-10.1 [facility] Comment on above: Performed By: #### L IPID, TSH, CMP, T7 #### [facility] [address] [address] [address] Milad Garcia Chloride [Moles/Vol] 106 mmol/L Normal 98-[address] [facility] Comment on above: Performed By: #### L IPID, TSH, CMP, T7 #### [facility] [address] [address] [address] Milad Garcia CO2 [Moles/Vol] 25.6 mmol/L Normal 21.0-32.0 [facility] Comment on above: Performed By: #### L IPID, TSH, CMP, T7 #### [facility] [address] [address] [address] Milad Garcia Creatinine [Mass/Vol] 0.87 mg/dL Normal 0.55-1.02 [facility] Comment on above: Performed By: #### L IPID, TSH, CMP, T7 #### [facility] [address] [address] [address] Milad Garcia EGFR-AF CITIZEN [place] >60 Normal >=60 [facility] Comment on above: Performed By: #### L IPID, TSH, CMP, T7 #### [facility] [address] [place] [address] Dr. Milad Garcia EGFR-NON AF CITIZEN OF [place] >60 Normal >=[address] [facility] Comment on above: Performed By: #### L IPID, TSH, CMP, T7 #### [facility] [address] [address] [address] Milad Garcia Globulin (S) [Mass/Vol] 2.9 g/dL Normal [facility] Comment on above: Performed By: #### L IPID, TSH, CMP, T7 #### [facility] [address] [place] [address] Dr. Milad Garcia Glucose [Mass/Vol] 90 mg/dL Normal 74-106 [facility] Comment on above: Performed By: #### L IPID, TSH, CMP, T7 #### [facility] [address] [address] [address] Milad Garcia Potassium [Moles/Vol] 3.8 mmol/L Normal 3.5-5.[address] [facility] Comment on above: Performed By: #### L IPID, TSH, CMP, T7 #### [facility] [address] [place] [address] Dr. Milad Garcia Protein [Mass/Vol] 6.9 g/dL Normal 6.4-8.2 [facility] Comment on above: Performed By: #### L IPID, TSH, CMP, T7 #### [facility] [address] [place] [address] Dr. Milad Garcia Sodium [Moles/Vol] 142 mmol/L Normal 136-145 [facility] Comment on above: Performed By: #### L IPID, TSH, CMP, T7 #### [facility] [address] [place] [address] Dr. Milad Garcia Urea nitrogen [Mass/Vol] 15.0 mg/dL Normal 7.0-18.[address] [facility] Comment on above: Performed By: #### L IPID, TSH, CMP, T7 #### [facility] [address] [place] [address] Dr. Milad Garcia Urea nitrogen/Creatinine [Mass ratio] 17.2 mg/mg Normal [facility] Comment on above: Performed By: #### L IPID, TSH, CMP, T7 #### [facility] [address] [place] [address] Dr. Milad Garcia TSHon 01-31-2023 TSH 0.493 uIU/mL Normal 0.358-3.740 [facility] Comment on above: Performed By: #### L IPID, TSH, CMP, T7 #### [facility] [address] [place] [address] Dr. Milad Garcia CBC AUTO DIFFon 11-27-2022 BASO # 0.0 103/ul Normal 0.0-0.1 [facility] Comment on above: Performed By: #### C BC #### [facility] [address] [place] [address] Dr. Milad Garcia Basophils/100 WBC (Bld) 0.4 % Normal 0.2-2.0 [facility] Comment on above: Performed By: #### C BC #### [facility] [address] [place] [address] Dr. Milad Garcia EO # 0.1 103/ul Normal 0.0-0.7 [facility] Comment on above: Performed By: #### C BC #### [facility] [address] [place] [address] Dr. Milad Garcia Eosinophils/100 WBC (Bld) 0.9 % Normal 0.9-7.0 [facility] Comment on above: Performed By: #### C BC #### [facility] [address] [place] [address] Dr. Milad Garcia Erythrocyte distribution width (RBC) [Ratio] 13.0 % Normal 11.0-15.0 [facility] Comment on above: Performed By: #### C BC #### [facility] [address] [place] [address] Dr. Milad Garcia Hematocrit (Bld) [Volume fraction] 42.0 % Normal 36.0-48.0 [facility] Comment on above: Performed By: #### C BC #### [facility] [address] [place] [address] Dr. Milad Garcia Hemoglobin (Bld) [Mass/Vol] 13.3 g/dL Normal 12.0-16.0 [facility] Comment on above: Performed By: #### C BC #### [facility] [address] [place] [address] Dr. Milad Garcia IG # 0.02 10e3/ul Normal 0.00-0.03 [facility] Comment on above: Performed By: #### C BC #### [facility] [address] [place] [address] Dr. Milad Garcia IG % 0.2 % Normal 0.0-0.5 [facility] Comment on above: Performed By: #### C BC #### [facility] [address] [place] [address] Dr. Milad Garcia LYMPH # 2.8 103/ul Normal 1.2-3.8 [facility] Comment on above: Performed By: #### C BC #### [facility] [address] [place] [address] Dr. Milad Garcia Lymphocytes/100 WBC (Bld) 32.2 % Normal 20.5-60.0 [facility] Comment on above: Performed By: #### C BC #### [facility] [address] [place] [address] Dr. Milad Garcia MANUAL DIFF REQ NO Normal [facility] Comment on above: Performed By: #### C BC #### [facility] [address] [place] [address] Dr. Milad Garcia MCH (RBC) [Entitic mass] 31.5 pg Normal 26.7-34.0 [facility] Comment on above: Performed By: #### C BC #### [facility] [address] [place] [address] Dr. Milad Garcia MCHC (RBC) [Mass/Vol] 31.7 g/dL Normal 29.9-35.2 [facility] Comment on above: Performed By: #### C BC #### [facility] [address] [address] [address] Milad Garcia MCV (RBC) [Entitic vol] 99.5 fL Critically high 81.0-99.0 [facility] Comment on above: Performed By: #### C BC #### [facility] [address] [address] [address] Milad Garcia MONO # 0.6 103/ul Normal 0.3-0.8 [facility] Comment on above: Performed By: #### C BC #### [facility] [address] [address] [address] Milad Garcia Monocytes/100 WBC (Bld) 6.8 % Normal 1.7-12.0 [facility] Comment on above: Performed By: #### C BC #### [facility] [address] [place] [address] Dr. Milad Garcia NEUT # 5.1 103/ul Normal 1.4-6.5 [facility] Comment on above: Performed By: #### C BC #### [facility] [address] [place] [address] Dr. Milad Garcia Neutrophils/100 WBC (Bld) 59.5 % Normal 43.0-75.0 [facility] Comment on above: Performed By: #### C BC #### [facility] [address] [address] [address] Milad Garcia Platelet mean volume (Bld) [Entitic vol] 10.0 fL Normal 9.5-13.5 [facility] Comment on above: Performed By: #### C BC #### [facility] [address] [address] [address] Milad Garcia PLT 247 103/ul Normal 150-[address] [facility] Comment on above: Performed By: #### C BC #### [facility] [address] [address] [address] Milad Garcia RBC 4.22 106/ul Normal 4.20-5.[address] [facility] Comment on above: Performed By: #### C BC #### [facility] [address] [place] [address] Dr. Milad Garcia WBC 8.6 103/ul Normal 4.0-11.0 [facility] Comment on above: Performed By: #### C BC #### [facility] [address] [place] [address] Dr. Milad Garcia LIPASEon 11-27-2022 Lipase [Catalytic activity/Vol] 50.0 U/L Critically low 73.0-393.0 [facility] Comment on above: Performed By: #### I NSULIN #### [facility] [address] [place] [address] Dr. Milad Garcia PROF 14(COMP METB)on 023 Albumin [Mass/Vol] 3.7 g/dL Normal 3.4-5.0 [facility] Comment on above: Performed By: #### I NSULIN #### [facility] [address] [place] [address] Dr. Milad Garcia Albumin/Globulin [Mass ratio] 1.3 {ratio} Normal [facility] Comment on above: Performed By: #### I NSULIN #### [facility] [address] [place] [address] Dr. Milad Garcia ALP [Catalytic activity/Vol] 72 U/L Normal 46-116 [facility] Comment on above: Performed By: #### I NSULIN #### [facility] [address] [place] [address] Dr. Milad Garcia ALT [Catalytic activity/Vol] 14 U/L Normal 14-[address] [facility] Comment on above: Performed By: #### I NSULIN #### [facility] [address] [place] [address] Dr. Milad Garcia Anion gap [Moles/Vol] 11.5 mmol/L Normal [facility] Comment on above: Performed By: #### I NSULIN #### [facility] [address] [place] [address] Dr. Milad Garcia AST [Catalytic activity/Vol] 13 U/L Critically low 15-37 [facility] Comment on above: Performed By: #### I NSULIN #### [facility] [address] [address] [address] Milad Garcia Bilirubin [Mass/Vol] 0.3 mg/dL Normal 0.2-1.0 [facility] Comment on above: Performed By: #### I NSULIN #### [facility] [address] [address] [address] Milad Garcia Calcium [Mass/Vol] 8.8 mg/dL Normal 8.5-10.1 [facility] Comment on above: Performed By: #### I NSULIN #### [facility] [address] [place] [address] Dr. Milad Garcia Chloride [Moles/Vol] 105 mmol/L Normal 98-107 [facility] Comment on above: Performed By: #### I NSULIN #### [facility] [address] [place] [address] Dr. Milad Garcia CO2 [Moles/Vol] 26.1 mmol/L Normal 21.0-32.0 [facility] Comment on above: Performed By: #### I NSULIN #### [facility] [address] [place] [address] Dr. Milad Garcia Creatinine [Mass/Vol] 0.78 mg/dL Normal 0.55-1.02 [facility] Comment on above: Performed By: #### I NSULIN #### [facility] [address] [place] [address] Dr. Milad Garcia EGFR-AF CITIZEN [place] >60 Normal >=60 [facility] Comment on above: Performed By: #### I NSULIN #### [facility] [address] [place] [address] Dr. Milad Garcia EGFR-NON AF CITIZEN OF [place] >60 Normal >=60 [facility] Comment on above: Performed By: #### I NSULIN #### [facility] [address] [place] [address] Dr. Milad Garcia Globulin (S) [Mass/Vol] 2.9 g/dL Normal [facility] Comment on above: Performed By: #### I NSULIN #### [facility] [address] [address] [address] Milad Garcia Glucose [Mass/Vol] 112 mg/dL Critically high 74-106 [facility] Comment on above: Performed By: #### I NSULIN #### [facility] [address] [address] [address] Milad Garcia Potassium [Moles/Vol] 3.6 mmol/L Normal 3.5-5.1 [facility] Comment on above: Performed By: #### I NSULIN #### [facility] [address] [address] [address] Milad Garcia Protein [Mass/Vol] 6.6 g/dL Normal 6.4-8.2 [facility] Comment on above: Performed By: #### I NSULIN #### [facility] [address] [address] [address] Milad Garcia Sodium [Moles/Vol] 139 mmol/L Normal 136-145 [facility] Comment on above: Performed By: #### I NSULIN #### [facility] [address] [address] [address] Milad Garcia Urea nitrogen [Mass/Vol] 10.0 mg/dL Normal 7.0-18.0 [facility] Comment on above: Performed By: #### I NSULIN #### [facility] [address] [address] [address] Milad Garcia Urea nitrogen/Creatinine [Mass ratio] 12.8 mg/mg Normal [facility] Comment on above: Performed By: #### I NSULIN #### [facility] [address] [address] [address] Milad Garcia TROPONIN, HIGH SENSITIVITYon 11-27-2022 HSTROP <4.0 Normal 4.0-51.3 [facility] Comment on above: Result Comment: CUT- OFF POINTS HAVE BEEN ESTABLISHED BASED ON THE FOURTH UNIVERSAL DEFINITIONS OF MYOCARDIAL INFARCTION. THE UPPER REFERENCE LIMIT (URL) OF TROPONIN, DEFINED THE 99TH PERCENTILE OF cTnI DISTRIBUTION IN A REFERENCE POPULATION, HAS BEEN CONFIRMED THE DECISION THRESHOLD FOR [place] DIAGNOSIS. Performed By: #### L IPA, HSTROPN, CMP #### [facility] [address] [address] [address] Milad Garcia XR RIBS LT PA [...] DANIS ORTEGA Date: 2022-11-27 17:27 Normal [facility] MG MAMM RT DIAG FUon 023 MG MAMM RT DIAG FU Patient: AURORA MONTAGUE Exam Date: 11/07/2022 : 1975 Gender:F Ordering : DR TANG MCGEE . Admission #: [id number] Family : Order #: [id number] CLICK HERE TO VIEW EXAM RADIOLOGY REPORT [...] lung cancer at age 73. LOCATION: [facility] BREAST COMPOSITION: Heterogeneously dense,which may [...] Hernandez M.D. on 11/07/2022 at 11:04 Normal [facility] US BREAST RIGHT LIMITEDon US BREAST RIGHT LIMITED Patient: AURORA MONTAGUE Exam Date: 11/07/2022 : 1975 Gender:F Ordering : DR TANG MCGEE . Admission #: [id number] Family : Order #: [id number] CLICK HERE TO VIEW EXAM RADIOLOGY REPORT [...] lung cancer at age 73. LOCATION: [facility] BREAST COMPOSITION: Heterogeneously dense,which may [...] Hernandez M.D. on 11/07/2022 at 11:04 Normal [facility] XR CSPINE MIN 4 VIEWSon XR [...] by: DANIS BERGER Date: 2022-09-03 18:43 Normal [facility] MG MAMM SCREEN 3D DANA CADon 09-02-2022 MG MAMM SCREEN 3D DANA CAD Patient: AURORA MONTAGUE Exam Date: 09/02/2022 : 1975 Gender:F Ordering : DR TANG MCGEE . Admission #: [id number] Family : Order #: [id number] CLICK HERE TO VIEW EXAM RADIOLOGY REPORT [...] lung cancer at age 73. LOCATION: [facility] BREAST COMPOSITION: Heterogeneously dense,which may [...] Berger MD on 09/03/2022 at 08:25 Normal [facility] XR CHEST 2 Von 05-22-2022 XR CHEST 2 V EXAMINATION: XR CHES T 2 V HISTORY: Cough COMPARISON: 10/14/2020 TECHNIQUE: [...] by: DANIS BERGER Date: 2022-05-22 16:45 Normal [facility] PAP ACOG PANEL 2: 30 to 65on 04-25-2022 . . Normal [facility] Comment on above: Result Comment: Perf ormed at: WB Performed By: #### I NSULIN #### [facility] [address] [place] [address] Dr. Milad Garcia Age Gdln ACOG Testing 30-65 Normal [facility] Comment on above: Performed By: #### I NSULIN #### [facility] [address] [place] [address] Dr. Milad Garcia DIAGNOSIS: Comment Normal [facility] Comment on above: Result Comment: NEGA TIVE FOR INTRAEPITHELIAL LESION OR MALIGNANCY. THIS SPECIMEN WAS RESCREENED PART OF OUR RETAIL BUSINESS ANALYST PROGRAM. Performed at: WB Performed By: #### I NSULIN #### [facility] [address] [place] [address] Dr. Milad Garcia HPV Aptima Negative Normal Negative [facility] Comment on above: Result Comment: This nucleic acid amplification test detects fourteen high-risk HPV types (16,18,31,33,35,39,45,51,52,56,58,59,66,68) without differentiation. Performed at: =G Performed By: #### I NSULIN #### [facility] [address] [place] [address] Dr. Milad Garcia Methodology: Comment Normal [facility] Comment on above: Result Comment: This liquid based ThinPrep(R) pap test was screened with the use of an image guided system. Performed at: WB Performed By: #### I NSULIN #### [facility] [address] [address] [address] Milad Garcia Note: Comment Normal [facility] Comment on above: Result Comment: The [...] WB Performed By: #### I NSULIN #### [facility] [address] [address] [address] Milad Garcia Performed by: Comment Normal [facility] Comment on above: Result Comment: Micaela Fernandez, Rug Shampooer (ASCP) Performed at: WB Performed By: #### I NSULIN #### [facility] [address] [place] [address] Dr. Milad Garcia QC reviewed by: Comment Normal [facility] Comment on above: Result Comment: Brando Ruby, Rug Shampooer (ASCP) Performed at: WB Performed By: #### I NSULIN #### [facility] [address] [place] [address] Dr. Milad Garcia Specimen adequacy: Comment Normal [facility] Comment on above: Result Comment: Sati sfactory for evaluation. No endocervical component is identified. Performed at: WB Performed By: #### I NSULIN #### [facility] [address] [place] [address] Dr. Milad Garcia MRI LSPINE WO CONon 04-15-20 MRI LSPINE WO CON EXAMINATION: MRI LSPINE [...] PATIENCE HERNANDEZ Date: 2022-04-15 10:32 Normal [facility] SYMPTOMATIC COVID-19 ANTIGEN on 04-09-2022 EUA Statement SEE BELOW Normal [facility] Comment on above: Result Comment: This test [...] sooner. Performed By: #### I NSULIN #### [facility] [address] [place] [address] Dr. Milad Garcia SARS-CoV-2 (COVID-19) RNA TINO+probe Ql (Unsp spec) Positive Critically abnormal NEGATIVE [facility] Comment on above: Performed By: #### I NSULIN #### [facility] [address] [place] [address] Dr. Milad Garcia CULTURE URINEon 04-04-2022 CULTURE URINE Culture Observations : LIGHT GROWTH OF MIXED GENITAL JOSEFA. NO POTENTIAL PATHOGENS SEEN. Normal [facility] Comment on above: Performed By: #### I NSULIN #### [facility] [address] [place] [address] Dr. Milad Garcia UA RANDOM W/MICROSCOPICon BACTERIA TRACE Abnormal NONE SEEN [facility] Comment on above: Performed By: #### U AMIC #### [facility] [address] [place] [address] Dr. Milad Garcia Bilirubin Ql (U) Negative Normal NEGATIVE [facility] Comment on above: Performed By: #### U AMIC #### [facility] [address] [place] [address] Dr. Milad Garcia CAST NONE SEEN Normal NONE SEEN [facility] Comment on above: Performed By: #### U AMIC #### [facility] [address] [place] [address] Dr. Milad Garcia Clarity (U) CLEAR Normal CLEAR [facility] Comment on above: Performed By: #### U AMIC #### [facility] [address] [place] [address] Dr. Milad Garcia Color (U) LT. YELLOW Normal YELLOW [facility] Comment on above: Performed By: #### U AMIC #### [facility] [address] [place] [address] Dr. Milad Garcia Crystals LM Nom (Urine sed) NONE SEEN Normal NONE SEEN [facility] Comment on above: Performed By: #### U AMIC #### [facility] [address] [place] [address] Dr. Milad Garcia Epithelial cells LM Ql (Urine sed) RARE Normal NONE SEEN /RARE [facility] Comment on above: Performed By: #### U AMIC #### [facility] [address] [place] [address] Dr. Milad Garcia Glucose Ql (U) Negative Normal NEGATIVE [facility] Comment on above: Performed By: #### U AMIC #### [facility] [address] [address] [address] Milad Garcia Hemoglobin Ql (U) TRACE-INTACT Abnormal NEGATIVE [facility] Comment on above: Performed By: #### U AMIC #### [facility] [address] [address] [address] Milad Garcia Ketones Ql (U) Negative Normal NEGATIVE [facility] Comment on above: Performed By: #### U AMIC #### [facility] [address] [address] [address] Milad Garcia LEUKOCYTES Negative Normal NEGATIVE [facility] Comment on above: Performed By: #### U AMIC #### [facility] [address] [address] [address] Milad Garcia MUCOUS NONE SEEN Normal NONE SEEN [facility] Comment on above: Performed By: #### U AMIC #### [facility] [address] [address] [address] Milad Garcia Nitrite Ql (U) Negative Normal NEGATIVE [facility] Comment on above: Performed By: #### U AMIC #### [facility] [address] [address] [address] Milad Garcia pH (U) 6.5 [pH] Normal 5-9 [facility] Comment on above: Performed By: #### U AMIC #### [facility] [address] [address] [address] Milad Garcia RBC 0-2 Normal 0-2 [facility] Comment on above: Performed By: #### U AMIC #### [facility] [address] [address] [address] Milad Garcia SPEC GRAVITY <=1.005 Abnormal 1.005-<=1.02 5 [facility] Comment on above: Performed By: #### U AMIC #### [facility] [address] [place] [address] Dr. Milad Garcia UA PROTEIN Negative Normal NEGATIVE/ TRACE [facility] Comment on above: Performed By: #### U AMIC #### [facility] [address] [address] [address] Milad Garcia Urobilinogen Qn (U) 0.2 {Dior'U}/dL Normal 0.2 - 1. [address] [facility] Comment on above: Performed By: #### U AMIC #### [facility] [id number] Milad Garcia WBC NONE SEEN Normal NONE SEEN [facility] Comment on above: Performed By: #### U AMIC #### [facility] [address] [address] [address] Milad Garcia XR LSPINE MIN 4 VIEWSon XR LSPINE MIN 4 VIEWS EXAMINATION: XR [...] PATIENCE HERNANDEZ Date: 2022-04-04 17:30 Normal [address] [facility] XR foot RT min 3V*on 022 XR foot RT min 3V* [facility] [employer] Other XR foot RT min 3V* [facility] [employer] Other XR foot RT min 3V* [address] [place] [address] [employer] Other XR foot RT min 3V* [place] [address] [address] [employer] Other XR foot RT min 3V* XRay Report [employer] Other XR foot RT min 3V* Signed [employer] Other XR foot RT min 3V* Patient: Aurora Montague MR#: [id number] [employer] Other XR foot RT min 3V* [id number] [employer] Other XR foot RT min 3V* : 1975 Acct:[id number] [employer] Other XR foot RT min 3V* Age/Sex: 46 / F ADM Date: 11/14/21 [employer] Other XR foot RT min 3V* Loc: XDUCLY Room: Type: [facility] [employer] Other XR foot RT min 3V* Attending Dr: José Miguel Beltran PA-C [employer] Other XR foot RT min 3V* Ordering Provider: José Miguel Beltran [employer] Other XR foot RT min 3V* Date of Service: 11/14/21 [employer] Other XR foot RT min 3V* XR/XR foot RT min 3V*: Injury of right foot, initial encounter [employer] Other XR foot RT min 3V* Copies to: José Miguel Beltran [employer] Other XR foot RT min 3V* RIGHT FOOT - 3 views [employer] Other XR foot RT min 3V* COMPARISON: None [employer] Other XR foot RT min 3V* Reason for exam: Proximal phalanx pain of the third, fourth and fifth digits status post injury for [employer] Other XR foot RT min 3V* 1 day. [employer] Other XR foot RT min 3V* No focal soft tissue abnormality is noted. No acute bony process is seen. Joint spaces appear [employer] Other XR foot RT min 3V* well-maintained. No bony erosions. [employer] Other XR foot RT min 3V* XR/XR foot RT min 3V* [employer] Other XR foot RT min 3V* IMPRESSION: [employer] Other XR foot RT min 3V* NO ACUTE BONY INJURY. [employer] Other XR foot RT min 3V* Impression dictated by: Ruben Kelsey Jr., D.O.11/14/2021 3:49 PM [employer] Other XR foot RT min 3V* Dictation Location: [address] [address] [employer] Other XR foot RT min 3V* Transcribed By: PWS 11/14/21 [facility] [employer] Other XR foot RT min 3V* Dictated By: Ruben Kelsey Jr, DO 11/14/21 [facility] [employer] Other XR foot RT min 3V* Signed By: [employer] Other XR foot RT min 3V* 11/14/[address] [place] [address] [employer] Other Progress Noteon 03-16-2018 HIM IP Note OR Recep Normal [facility] Vital Signs Date Time Vital Sign Value Performing Clinician Facility 07-10-2025 14:55-0400 Body mass index (BMI) [Ratio] 32.8 kg/m2 Tang Everardo DO Work Phone: [facility] 07-10-2025 14:55-0400 Body weight 94.98 kg Tang Everardo DO Work Phone: [facility] 07-10-2025 14:55-0400 Diastolic blood pressure 64 mm[Hg] Tang Everardo DO Work Phone: [facility] 07-10-2025 14:55-0400 Systolic blood pressure 110 mm[Hg] Tang Everardo DO Work Phone: [facility] 06-27-2025 11:31-0400 Body weight 94 kg [facility] 06-14-2025 16:32-0400 Body temperature 98.6 [degF] [facility] 06-14-2025 16:32-0400 Diastolic blood pressure 56 mm[Hg] Deon Fuentes MD [facility] 06-14-2025 16:32-0400 Heart rate 54 /min Deon Fuentes MD [facility] [employer] 06-14-2025 16:32-0400 Respiratory rate 18 /min Deon Fuentes MD [facility] [employer] 06-14-2025 16:32-0400 SaO2% (BldA) [Mass fraction] 98 % Deon Fuentes MD [facility] 06-14-2025 16:32-0400 Systolic blood pressure 126 mm[Hg] Deon Fuentes MD [facility] [employer] 06-14-2025 13:45-0400 Body height 172.1 cm Deon Fuentes [facility] 06-14-2025 13:45-0400 Body mass index (BMI) [Ratio] 33.39 kg/m2 Deon Fuentes MD [facility] 06-14-2025 13:45-0400 Body weight 98.88 kg Deon Fuentes MD [facility] 10-28-2024 14:05-0500 Body height 170.2 cm Bhavana Mckay MD Work Phone: [facility] Comment on above: per patient 10-28-2024 14:05-0500 Body mass index (BMI) [Ratio] 33.67 kg/m2 Bhavana Mckay MD Work Phone: [facility] 10-28-2024 14:05-0500 Body temperature 98.4 [degF] Bhavana Mckay MD Work Phone: [facility] 10-28-2024 14:05-0500 Body weight 97.52 kg Bhavana Mckay MD Work Phone: [facility] Comment on above: per patient 10-28-2024 14:05-0500 Diastolic blood pressure 75 mm[Hg] Bhavana Mckay MD Work Phone: [facility] 10-28-2024 14:05-0500 Heart rate 78 /min Bhavana Mckay MD Work Phone: [facility] 10-28-2024 14:05-0500 Systolic blood pressure 122 mm[Hg] Bhavana Mckay MD Work Phone: [facility] 10-03-2024 10:22-0500 Body mass index (BMI) [Ratio] 33.89 kg/m2 Tang Everardo DO Work Phone: [facility] 10-03-2024 10:22-0500 Body weight 98.16 kg Tang Everardo DO Work Phone: [facility] 10-03-2024 10:22-0500 Diastolic blood pressure 62 mm[Hg] Tang Everardo DO Work Phone: [facility] 10-03-2024 10:22-0500 Systolic blood pressure 110 mm[Hg] Tang Everardo DO Work Phone: [facility] 09-28-2024 15:27-0500 Body mass index (BMI) [Ratio] 33.36 kg/m2 Tang Everardo DO Work Phone: [facility] 09-28-2024 15:27-0500 Body weight 96.62 kg Tang Everardo DO Work Phone: [facility] 09-28-2024 15:27-0500 Diastolic blood pressure 70 mm[Hg] Tang Everardo DO Work Phone: [facility] 09-28-2024 15:27-0500 Systolic blood pressure 120 mm[Hg] Tang Mcgee DO Work Phone: [facility] 09-06-2024 11:06-0500 Body height 170.2 cm Rakesh Monsoon Commerce[employer] PA-C Work Phone: [facility] 09-06-2024 11:06-0500 Body mass index (BMI) [Ratio] 33.67 kg/m2 Rakesh Monsoon [employer] PA-C Work Phone: [facility] 09-06-2024 11:06-0500 Body weight 97.52 kg Rakesh Monsoon [employer] PA-C Work Phone: [facility] 04-26-2024 11:55-0400 Diastolic blood pressure 67 mm[Hg] Ashley Shah MD Work Phone: [facility] 04-26-2024 11:55-0400 Heart rate 75 /min Ashley Shah MD Work Phone: [facility] 04-26-2024 11:55-0400 Respiratory rate 24 /min Ashley Shah MD Work Phone: [facility] 04-26-2024 11:55-0400 SaO2% (BldA) [Mass fraction] 100 % Ashley Shah MD Work Phone: [facility] 04-26-2024 11:55-0400 Systolic blood pressure 111 mm[Hg] Ashley Shah MD Work Phone: [facility] 04-26-2024 10:42-0400 Body height 170.2 cm Ashley Shah MD Work Phone: [facility] 04-26-2024 10:42-0400 Body mass index (BMI) [Ratio] 33.67 kg/m2 Ashley Shah MD Work Phone: [facility] 04-26-2024 10:42-0400 Body weight 97.52 kg Ashley Shah MD Work Phone: [facility] 03-11-2024 11:20-0400 Body height 170.2 cm Rakesh Godfray PA-C Work Phone: [facility] 03-11-2024 11:20-0400 Body mass index (BMI) [Ratio] 33.67 kg/m2 Rakesh Godfray PA-C Work Phone: [facility] 03-11-2024 11:20-0400 Body weight 97.52 kg Rakesh Godfray PA-C Work Phone: [facility] 03-11-2024 11:20-0400 Diastolic blood pressure 68 mm[Hg] Rakesh Godfray PA-C Work Phone: [facility] 03-11-2024 11:20-0400 Heart rate 71 /min Rakesh Godfray PA-C Work Phone: [facility] 03-11-2024 11:20-0400 Systolic blood pressure 129 mm[Hg] Rakesh Godfray PA-C Work Phone: [facility] 02-29-2024 13:15-0400 Body height 172.7 cm Ashley Shah MD Work Phone: [facility] 02-29-2024 13:15-0400 Body mass index (BMI) [Ratio] 32.69 kg/m2 Ashley Shah MD Work Phone: [facility] 02-29-2024 13:15-0400 Body weight 97.52 kg Ashley Shah MD Work Phone: [facility] 02-29-2024 13:15-0400 Diastolic blood pressure 69 mm[Hg] Ashley Shah MD Work Phone: [facility] 02-29-2024 13:15-0400 Heart rate 76 /min Ashley Shah MD Work Phone: [facility] 02-29-2024 13:15-0400 Systolic blood pressure 101 mm[Hg] Ashley Shah MD Work Phone: [facility] 02-19-2024 11:20-0400 Body height 170.2 cm Rakesh Thompson PA-C Work Phone: [facility] 02-19-2024 11:20-0400 Body weight 96.16 kg Rakesh Thompson PA-C Work Phone: [facility] 02-15-2024 15:56-0400 Body height 172.09 cm [facility] 02-15-2024 15:56-0400 Body mass index (BMI) [Ratio] 33.7 kg/m2 [facility] 02-15-2024 15:56-0400 Body temperature 98.3 [degF] [facility] 02-15-2024 15:56-0400 Body weight 99.79 kg [facility] 02-15-2024 15:56-0400 Heart rate 87 /min [facility] 02-15-2024 15:56-0400 Respiratory rate 18 /min [facility] 02-15-2024 15:56-0400 SaO2% (BldA) [Mass fraction] 96 % [facility] 03-10-2023 10:03-0400 Body height 170.2 cm Rakesh Thompson PA-C Work Phone: [facility] 03-10-2023 10:03-0400 Body weight 96.16 kg Rakesh Thompson PA-C Work Phone: [facility] 09-26-2022 15:05-0500 Body height 175.26 cm José Miguel Fuentes Other [employer] Other 09-26-2022 15:05-0500 Body mass index (BMI) [Ratio] 30.86 kg/m2 José Miguel Fuentes Other [employer] Other 09-26-2022 15:05-0500 Body temperature 98.4 [degF] José Miguel Fuentes Other [employer] Other 09-26-2022 15:05-0500 Body weight 94.8 kg José Miguel Fuentes Other [employer] Other 09-26-2022 15:05-0500 Diastolic blood pressure 65 mm[Hg] José Miguel Fuentes Other [employer] Other 09-26-2022 15:05-0500 Respiratory rate 18 /min José Miguel Fuentes Other [employer] Other 09-26-2022 15:05-0500 SaO2% (BldA) [Mass fraction] 97 % José Miguel Fuentes Other [employer] Other 09-26-2022 15:05-0500 Systolic blood pressure 110 mm[Hg] José Miguel Fuentes Other [employer] Other 02-06-2022 11:30-0400 Body height 175.26 cm Armand De Paz Other [employer] Other 02-06-2022 11:30-0400 Body mass index (BMI) [Ratio] 29.53 kg/m2 Armand De Paz Other [employer] Other 02-06-2022 11:30-0400 Body weight 90.72 kg Armand De Paz Other [employer] Other 11-14-2021 15:20-0500 Body height 175.26 cm José Miguel Beltran Other [employer] Other 11-14-2021 15:20-0500 Body mass index (BMI) [Ratio] 29.89 kg/m2 José Miguel Beltran Other [employer] Other 11-14-2021 15:20-0500 Body temperature 97.3 [degF] José Miguel Beltran Other [employer] Other 11-14-2021 15:20-0500 Body weight 91.81 kg José Miguel Beltran Other [employer] Other 11-14-2021 15:20-0500 Diastolic blood pressure 78 mm[Hg] José Miguel Beltran Other [employer] Other 11-14-2021 15:20-0500 Respiratory rate 18 /min José Miguel Beltran Other [employer] Other 11-14-2021 15:20-0500 SaO2% (BldA) [Mass fraction] 97 % José Miguel Beltran Other [employer] Other 11-14-2021 15:20-0500 Systolic blood pressure 130 mm[Hg] José Miguel Beltran Other [employer] Other Encounters Encounter Date Encounter Type Care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 Progress Notes Filed: 10/28/2024 15:35 Note Text: Radiology Service Progress Note PATIENT NAME: Aurora Montague DATE OF SERVICE: October 28, 2024 TIME: 3:34 PM PATIENT IDENTITY VERIFICATION COMPLETED USING TWO [...] PATIENT PRESENTS WITH AN IMPLANTABLE OR ATTACHED LABORER LABORATORY: No RADIOLOGY DEPARTMENT: General X-ray: Exam(s) Completed: Upper Extremity X-Ray(s): Shoulder, AP / TRUE AP left PERIPHERAL IV DATA: Not applicable SIGNED BY: Danis Phillip, RT(R) October 28, 2024 3:34 PM [facility] 10-28-2024 Note HNO ID: [id number] Author: BHAVANA MCKAY MD Service: ? Author Type: Physician Type: Progress Notes Filed: 10/28/2024 19:55 Note Text: [facility] General Neurology New Patient Evaluation Consulting Provider: Rakesh Thompson [id number] [address] [facility] [id number] The patient presents with a chief complaint as listed below, and is seen in consultation requested by PA. Rakesh Thompson for an opinion regarding these symptoms. My final recommendations will be communicated back to the requesting physician by way of shared medical record or letter via US mail. Dear Ms. Thompson, Thank you for the referral. Please let me know if you have any questions. Individuals who were included in, or assisted with the encounter were: Aurora Montague Margy (friend) Bhavana Mckay MD Chief Complaint/Issues: Aurora Montague is a 49 year old female seen in the [facility] for General Neurology for: Frequent falls Vision changes - right eye blurred vision, color vision seems to be ok. Paresthesias HPI: She has always been clumsy and in the 6 months she fell 10 times. No significant injuries and just worsens her neck and back. She has been in physical therapy for back and other things for 20 yrs. She usually trips and there is no dizziness involved. Has had episodes of feeling like she is going to black out and thought it was due to hyperglycemic and was told that by her [employer] DRIVER (Flower Dunham) at her PCP's nurse. She is afraid of that as she has a family hx of diabetes, runs strong on her mother's side. She has a strong family hx of fibromyalgia and one aunt has MS and MD. 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 Summer of last year she noticed that intermittently she will feel numbness from neck down. Sometimes she will feel like novocaine in the mouth area and if she scratches it she will feel tingly. ROM of motion above the 90 degrees is not as good. She drops things all the time and sometimes it will go a little numb but mostly tingling and nerve pain. Nerve pain in the right hand is more than left but left hand cramps up more. No family hx of arthritis known. PTSD and anxiety is under control. Mother young due to complications of her diabetes with kidney failure. General Examination: BP 122/75 (BP Site: Right Arm, BP Position: Sitting, BP Cuff Size: Large Adult) Pulse 78 Temp 36.9 ?C (98.4 ?F) (Oral) Ht 170.2 cm (5' 7 ) Wt 97.5 kg (215 lb) No BMI 33.67 kg/m? General: Awake, alert, interactive, no acute distress, good nutritional status, normal development, well-kept Neurological Exam Mental Status Alert, fully oriented, attentive, with normal cognition, memory, speech and affect. Cranial Nerves Visual soliz intact. Fundi with normal discs and vasculature. Pupils reactive. Extraocular movements conjugate and full. No ptosis. No nystagmus. Facial sensation intact. Face symmetric and strong. Palate and tongue normal. XI normal. Hearing is normal Motor Examination and Coordination Motor examination with normal bulk, strength and tone. No drift. Normal rapid alternating movements and coordination. No adventitious movements or significant tremor. Neuromuscular Examination Axial Muscles Ptosis: R: none L: none Face-eye closure: normal Face-mouth closure: normal Palatal movement: normal Tongue: normal Extremity Muscles Upper Extremity Right Left Shoulder external rotation 5 5 Shoulder abduction 5 5 Elbow flexion 5 5 Elbow extension 5 5 Wrist flexion 5 5 Wrist extension 5 5 Finger flexion/tar distillation supervisor 5 5 Finger extension 5 5 First dorsal interosseous 5 Abductor digiti minimi 5 rhomboid 5 4+ Lower Extremity Right Left Hip flexion 5 5 Hip extension 5 5 Hip abduction 5 5 Hip adduction 5 5 Knee flexion 5 5 Knee extension 5 5 Ankle inversion 5 5 Ankle eversion 5 5 Extensor hallucis longus 5 5 Flexor digitorum longus 5 5 Atrophy: none Fasciculations: none Tone (Amna spasticity) UE: Right: A0=normal (none) Left: A0=normal (none) LE: Right: A0=normal (none) Left: A0=normal (none) Finger taps: R: normal L: normal Foot taps: R: normal L: normal Tremor: normal Reflexes Deep tendon reflexes graded by MRC Deep Tendon Reflexes Right Left Biceps 1+ 1+ Triceps 2 2 Brachioradialis 1+ 1+ Patellar 2 2 Achilles 0 0 Plantar Downgoing Downgoing Sensation Sensation intact to light touch, pinprick, proprioception and vibration. Gait Arises easily. Casual gait, tandem, and Romberg are normal. Can rise on heels and toes. CV: RRR without any murmurs and no carotid bruits. Assessment AND Plan 10/28/2024 - General Neurology, Bhavana Mckay MD ASSESSMENT 1) Frequent falls with right eye blurred vision, intermittent paresthesias and urinary incontinence along wi (more content not included)... [facility] 10-28-2024 History of Present illness Narrative Images from the original note were not included. [facility] for General Neurology New Patient Evaluation Consulting Provider: Rakesh Thompson [id number] [address] [facility] [address] The patient presents with a chief complaint as listed below, and is seen in consultation requested by PA. Rakesh Thompson for an opinion regarding these symptoms. My final recommendations will be communicated back to the requesting physician by way of shared medical record or letter via US mail. Dear Ms. Thompson, Thank you for the referral. Please let me know if you have any questions. Individuals who were included in, or assisted with the encounter were: Aurora Montague Margy (friend) Bhavana Mckay MD Chief Complaint/Issues: Aurora Montague is a 49 year old female seen in the [facility] for General Neurology for: Frequent falls Vision changes - right eye blurred vision, color vision seems to be ok. Paresthesias HPI: She has always been clumsy and in the 6 months she fell 10 times. No significant injuries and just worsens her neck and back. She has been in physical therapy for back and other things for 20 yrs. She usually trips and there is no dizziness involved. Has had episodes of feeling like she is going to black out and thought it was due to hyperglycemic and was told that by her [employer] DRIVER (Flower Dunham) at her PCP's nurse. She is afraid of that as she has a family hx of diabetes, runs strong on her mother's side. She has a strong family hx of fibromyalgia and one aunt has MS and MD. 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 Summer of last year she noticed that intermittently she will feel numbness from neck down. Sometimes she will feel like novocaine in the mouth area and if she scratches it she will feel tingly. ROM of motion above the 90 degrees is not as good. She drops things all the time and sometimes it will go a little numb but mostly tingling and nerve pain. Nerve pain in the right hand is more than left but left hand cramps up more. No family hx of arthritis known. PTSD and anxiety is under control. Mother young due to complications of her diabetes with kidney failure. General Examination: BP 122/75 (BP Site: Right Arm, BP Position: Sitting, BP Cuff Size: Large Adult) Pulse 78 Temp 36.9 C (98.4 F) (Oral) Ht 170.2 cm (5' 7 ) Wt 97.5 kg (215 lb) No BMI 33.67 kg/m General: Awake, alert, interactive, no acute distress, good nutritional status, normal development, well-kept Neurological Exam Mental Status Alert, fully oriented, attentive, with normal cognition, memory, speech and affect. Cranial Nerves Visual soliz intact. Fundi with normal discs and vasculature. Pupils reactive. Extraocular movements conjugate and full. No ptosis. No nystagmus. Facial sensation intact. Face symmetric and strong. Palate and tongue normal. XI normal. Hearing is normal Motor Examination and Coordination Motor examination with normal bulk, strength and tone. No drift. Normal rapid alternating movements and coordination. No adventitious movements or significant tremor. Neuromuscular Examination Axial Muscles Ptosis: R: none L: none Face-eye closure: normal Face-mouth closure: normal Palatal movement: normal Tongue: normal Extremity Muscles Upper Extremity Right Left Shoulder external rotation 5 5 Shoulder abduction 5 5 Elbow flexion 5 5 Elbow extension 5 5 Wrist flexion 5 5 Wrist extension 5 5 Finger flexion/tar distillation supervisor 5 5 Finger extension 5 5 First dorsal interosseous 5 Abductor digiti minimi 5 rhomboid 5 4+ Lower Extremity Right Left Hip flexion 5 5 Hip extension 5 5 Hip abduction 5 5 Hip adduction 5 5 Knee flexion 5 5 Knee extension 5 5 Ankle inversion 5 5 Ankle eversion 5 5 Extensor hallucis longus 5 5 Flexor digitorum longus 5 5 Atrophy: none Fasciculations: none Tone (Amna spasticity) UE: Right: A0=normal (none) Left: A0=normal (none) LE: Right: A0=normal (none) Left: A0=normal (none) Finger taps: R: normal L: normal Foot taps: R: normal L: normal Tremor: normal Reflexes Deep tendon reflexes graded by MRC Deep Tendon Reflexes Right Left Biceps 1+ 1+ Triceps 2 2 Brachioradialis 1+ 1+ Patellar 2 2 Achilles 0 0 Plantar Downgoing Downgoing Sensation Sensation intact to light touch, pinprick, proprioception and vibration. Gait Arises easily. Casual gait, tandem, and Romberg are normal. Can rise on heels and toes. CV: RRR without any murmurs and no carotid bruits. Assessment & Plan 10/28/2024 - General Neurology, Bhavana Mckay MD ASSESSMENT 1) Frequent falls with right eye blurred vision, intermittent paresthesias and urinary incontinence along with fatigue with normal periods in between and a family hx of Multiple Sclerosis. 2) Left shoulder pain and loss of ROM and she thinks strength - all this after Cervical spine surgery - no neuro deficits found, will get XR and have her see orthopedics. Consider EMG/NCS if ortho workup is negative PLAN 1a) Order MRI of head with contrast, order put in and discussed with patient. 1b) Order blood work for mimickers of MS ( patient has not brought any blood work from her PCP for me), TSH, B12, Folate, SSA/SSB, SEBASTIÁN, GUZMAN 2) XR of left shoulder and ortho consult Encounter Diagnosis ICD-10-CM 1. Left shoulder pain, unspecified chronicity M25.512 XR SHOULDER GENERAL 3V OR MORE AP/TRUE AP/OTHER LEFT CONSULT TO ORTHOPAEDICS 2. Falls frequently R29.6 3. Vision changes H53.9 4. Paresthesias R20.2 5. Demyelinating disease of central nervous system (HCC) G37.9 MRI BRAIN WO/W IVCON iv contrast (will be provided with radiology test) VITAMIN B12 FOLATE, SERUM SJOGREN ABS SSA/SSB SEBASTIÁN BLOOD GUZMAN/ANGIOTENSIN BLD Return in about 3 months (around 01/26/2025) for with Dr. Mckay. = Data Review Objective Current Outpatient Medications Medication Sig Benzonatate 200 mg capsule TAKE 1 CAPSULE BY MOUTH THREE TIMES A DAY NEEDED FOR 7 DAYS cephALEXin (KEFLEX) 500 mg capsule Take 500 mg by mouth. clonazePAM (KLONOPIN) 1 mg tablet Take 1 mg by mouth two times a day as needed for anxiety. For Anxiety ARIPiprazole (ABILIFY) 15 mg tablet Take 1 tablet by mouth every afternoon. buPROPion XL (WELLBUTRIN XL) 150 mg 24 [...] Take 1 tablet by mouth every afternoon. iv contrast (will be provided with radiology test) MRI Brain Inject, intravenously, once for 1 dose.No IV access, insert saline lock prior to beginning of sedation, infusion, injection of imaging exam.Discontinue saline lock post exam. If Pt. has a central line or IVAD, may access for administration according to line specific nursing protocol.Once exam is complete flush line and de-access according to line specific nursing protocol in the MR contrast administration guidelines link No current facility-administered medications for this visit. ACTIVE PROBLEM LIST Chronic Midline Low Back Pain Without Sciatica No past medical history on file. PAST SURGICAL HISTORY Procedure Laterality Date BACK SURGERY HX velma c4-c7 decompression and fusion COLONOSCOPY SCREENING EGD DIAGNOSTIC VAGINAL HYSTERECTOMY partial hysterectomy Social History Tobacco Use Smoking status: Former Current packs/day: 0.00 Types: Cigarettes Quit date: 03/23/2023 Years since quittin.6 Smokeless tobacco: Never Vaping Use Vaping status: Never Used Substance Use Topics Alcohol use: Not Currently Drug use: Yes Types: Marijuana Comment: daily FAMILY HISTORY Problem Relation Age of Onset Colon Cancer Paternal Grandfather Review of Systems Constitutional: Positive for fatigue. Skin: Eczema and uses red light and it keeps it at bay HENT: Negative. Musculoskeletal: Positive for arthralgias, back pain, neck pain and neck stiffness. Eyes: Negative. Respiratory: Negative. Gastrointestinal: Positive for reflux. Hx of diverticulitis, ulcers and reflux. She has gallstones Endocrine: Negative. Genitourinary: Positive for incontinence. 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 Allergic/Immunologic: Negative. Psychiatric: Positive for nervous/anxious. Lab and Test Review: General Medical Labs: Last 3 sets of CBC, CMP, Lipids, HBA1C, TSH Latest Ref Rng & Units 02/29/2024 CBC WBC 3.70 - 11.00 k/uL 7.17 RBC 3.90 - 5.20 m/uL 4.51 Hemoglobin 11.5 - 15.5 g/dL 14.6 Hematocrit 36.0 - 46.0 % 42.9 MCV 80.0 - 100.0 fL 95.1 MCH 26.0 - 34.0 pg 32.4 MCHC 30.5 - 36.0 g/dL 34.0 RDW-CV 11.5 - 15.0 % 12.9 Platelet Count 150 - 400 k/uL 253 MPV 9.0 - 12.7 fL 10.8 Baso% % 0.4 Abs Neut (ANC) 1.45 - 7.50 k/uL 4.13 Abs Lymph 1.00 - 4.00 k/uL 2.44 Abs Garfield <0.87 k/uL 0.50 Abs Eosin <0.46 k/uL 0.06 Abs Baso <0.11 k/uL 0.03 NRBC /100 WBC 0.0 Latest Ref Rng & Units 02/29/2024 CMP Sodium 136 - 144 mmol/L 139 Potassium 3.7 - 5.1 mmol/L 4.3 Chloride 97 - 105 mmol/L 104 CO2 22 - 30 mmol/L 24 Glucose 74 - 99 mg/dL 91 BUN 7 - 21 mg/dL 11 Creatinine 0.58 - 0.96 mg/dL 1.03 EGFR >=60 mL/min/1.73m 68 Protein, Total 6.3 - 8.0 g/dL 7.2 Albumin 3.9 - 4.9 g/dL 4.5 Calcium 8.5 - 10.2 mg/dL 9.3 Bilirubin, Total 0.2 - 1.3 mg/dL 0.5 AST 13 - 35 U/L 17 ALT 7 - 38 U/L 17 Alkaline Phosphatase 34 - 123 U/L 75 Common Neurology Labs: Last 3 sets of ESR, CRP, CK, Vitamin B12, MMA, Folate, Vitamin D, Copper No data to display MRI Head/Brain - Last 2 Impressions No resulted procedures found. MRI Cervical Spine - Last 2 Impressions MRI CERVICAL SPINE WO IVCON Exam End: 04/20/2023 5:08 PM (Final result) Impression: IMPRESSION: Cervical spondylosis and postoperative changes. Mild spinal canal stenosis at C3-C4. Varying degrees of up to moderate to severe foraminal stenoses, most notable at C5-C6 Anatomic Variant: None. Assume 7 cervical vertebrae with counting from the craniocervical junction. Cardiac Catheterization Technologist: DAMON Transcribe Date/Time: Apr 21 2023 7:54A Dictated by : NATALY ROBLERO DO MRI CERVICAL SPINE WO IVCON Exam End: 03/18/2017 8:34 AM (Final result) Impression: Status post C4-C7 anterior instrumented fusion, C5-6 corpectomy and strut graft placement. Multilevel degenerative disc disease as described above, grossly stable. Spinal canal narrowing, mild at C4-5, minimal at C2-3 and C3-4. Foraminal narrowing, moderate at right C4-5 and bilateral C5-6, mild to moderate at bilateral C6-7, mild at bilateral C3-4 and left C4-5. MRI Lumbar Spine - Last 2 Impressions MRI LUMBAR SPINE WO IVCON Exam End: 12/12/2016 11:22 AM (Final result) Impression: 1. Findings mainly of degenerative disc disease and facet joint degenerative change most prominent at L4-5 and L5-S1. 2. Bilateral foraminal stenosis as noted above including moderate bilateral L4-5 foraminal stenosis. MRI Thoracic Spine - Last 2 Impressions No resulted procedures found. CTA Head and/or Neck - Last 2 No resulted procedures found. Outside Data/Labs: reviewed Subjective Patient-Entered Data: 10/28/24 - GENERAL NEUROLOGY SCORES 02/18/2024 05/26/2024 09/05/2024 PROMIS 10 Health, in general Fair Fair Fair Quality of life, in general Poor Poor Poor Physical health, in general Poor Poor Poor Mental health, in general Fair Fair Fair Social activities satisfaction Poor Poor Fair Performing ADL's Mostly Moderately Moderately Social role satisfaction Fair Fair Fair Pain, on average 5 6 8 Fatigue, on average Moderate Moderate Emotional problems Always Always Always PHYSICAL Score 37.4 (Fair) Incomplete 32.4 (Poor) MENTAL Score 25.1 (Poor) 25.1 (Poor) 28.4 (Poor) 09/05/2024 09/29/2024 09/29/2024 Depression Screening PHQ-2 Score 3 5 PHQ-9 Score 13 21 CAR[place]-2 Total Score 6 [place]-7 Total Score 20 10/24/2024 SLEEP APNEA SCORE Probability of moderate-severe sleep apnea (%) SAPS V2 21 (Sleep study not recommended) 02/18/2024 09/05/2024 PROMIS CAT Sleep Disturbance PROMIS Sleep Disturbance T-Score 54 (within normal limits) 54 (within normal limits) PROMIS Sleep Disturbance Percentile 34 34 I spent a total of 60 minutes on the date of the service which included preparing to see the patient, [id number] patient care, completing clinical documentation, obtaining and/or reviewing separately obtained history, performing a medically appropriate examination, counseling and educating the patient/family/caregiver, ordering medications, tests, or procedures, communicating with other HCPs (not separately reported), and communicating results to the patient/family/caregiver. Bhavana Mckay MD documented in this encounter [facility] 10-06-2024 Telephone encounter Note [facility]: 09/06/24 w/ NAKIA NOV: 10/07/24 w/ JLucretia Plan at [facility]: 1. Imaging/diagnostics: lumbar MRI scheduled for 10/23/24, but denied per pt 2. Physical therapy: continue HEP 3. Medication: none 4. Referrals: neurology scheduled for 10/28/24 w/ Dr. Mckay, [facility] not yet scheduled 5. Considerations: lumbar TFESI 6. Follow up: office visit after MRI Inquiry about denial shared w/ pt via . JG notified. Mckenzie Dean, JOSE, RN Archeology Professor October 06, 2024 8:42 AM [facility] 10-06-2024 Miscellaneous Notes PAUL: 09/06/24 w/ JG NOV: 10/07/24 w/ JG Plan at [facility]: 1. Imaging/diagnostics: lumbar MRI scheduled for 10/23/24, but denied per pt 2. Physical therapy: continue HEP 3. Medication: none 4. Referrals: neurology scheduled for 10/28/24 w/ Dr. Mckay, [facility] not yet scheduled 5. Considerations: lumbar TFESI 6. Follow up: office visit after MRI Inquiry about denial shared w/ pt via [facility]. JG notified. Mckenzie Dean, MSN, RN Archeology Professor October 06, 2024 8:42 AM documented in this encounter [facility] 10-03-2024 Telephone encounter Note Patient came in to the office today for her MRI appointment.The patient's MRI was not authorized to proceed. I brought the patient back and explained to her that it appears she was sent a My Chart message regarding the MRI and the financial aspect of it. Patient was very understanding and I suggested that we rescheduled the appointment in case there was still a chance that the approval is still in the process. [facility] 10-03-2024 Miscellaneous Notes Patient came in to the office today for her MRI appointment.The patient's MRI was not authorized to proceed. I brought the patient back and explained to her that it appears she was sent a My Chart message regarding the MRI and the financial aspect of it. Patient was very understanding and I suggested that we rescheduled the appointment in case there was still a chance that the approval is still in the process. documented in this encounter [facility] 10-03-2024 History of Present illness Narrative Reason for Appointment: Patient ID: Lana Montague is a 49 y.o. female who presents for Well Women Visit Patient presents today for Annual Exam. MEDICATIONS Current Outpatient Medications Medication Instructions buPROPion XL (WELLBUTRIN XL) 150 mg, Daily cephalexin (KEFLEX) 500 mg, Oral, Daily clonazePAM (KLONOPIN) 1 mg, 2 times [...] Lung cancer Father Mateusz Cancer Sister Saba an kylee Ovarian cancer Sister Kylee Rashes / Skin [...] Constitutional: Appearance: Normal appearance. She is well-developed. Genitourinary: Vulva normal. Vaginal cuff intact. Cervix is absent. Uterus is absent. Breasts: Breasts are soft. Right: Normal. Left: Normal. Cardiovascular: Rate and Rhythm: Normal rate and regular rhythm. Abdominal: General: Bowel sounds are normal. There [...] nursing note reviewed. Exam conducted with a computer systems hardware analyst present. Vitals: Estimated body mass index is 33.89 kg/m as calculated from the following: Height as of 06/16/24: 5' 7 . Weight as of this encounter: 216 lb 6.4 oz. BP: 110/62 No LMP recorded. Patient has had a hysterectomy. ASSESSMENT & PLAN ICD-10-CM 1. Well woman exam with routine gynecological exam Z01.419 THIN PREP TIS PAP AND HR HPV DNA 2. Breast cancer screening by mammogram Z12.31 Bilateral screening mammogram Bilateral screening mammogram 3. Exposure to STD Z20.2 CHLAMYDIA TRACHOMATIS (GENITO/STI) Neisseria gonorrhea DNA probe, direct 4. Vaginal discharge N89.8 SURESWAB(R) ADVANCED VAGINITIS PLUS, TMA Annual: Patient presents today for an annual exam. Patient states she is doing well and has complaints of discharge. Pap and cultures was obtained without difficulty and patient given mammogram order to have scheduled/obtained. Orders Placed This Encounter Procedures Bilateral screening mammogram CHLAMYDIA TRACHOMATIS (GENITO/STI) Neisseria gonorrhea DNA probe, direct Follow Up: Patient is to return in one year for annual unless needed otherwise. Documented by Ekta Olson LPN on behalf of: Tang Mcgee DO documented in this encounter [facility] 09-28-2024 History of Present illness Narrative Reason [...] nursing note reviewed. Exam conducted with a computer systems hardware analyst present. Vitals: Estimated body mass index is 33.36 kg/m as calculated from the following: Height as of 24: 5' 7 . Weight as of this [...] Tang Mcgee DO documented in this encounter [facility] 09-06-2024 History of Present illness Narrative Images [...] with both hands since her neck surgery 2017. No longer feeling the left arm weakness. Feeling weakness right shoulder/upper arm for 2-3 weeks when trying to pulling blanket onto herself. Recently had first session EMDR with therapist for PTSD. Vision changes - blurred vision, double vision. Astigmatism. Nicotine use: none Interventions: Medications: Wellbutrin (150mg qAM), Zoloft (100mg qAM), Klonopin (1mg BID) -Previously tried: [place], robaxin, diclofenac 75mg BID ,medrol dose pack [...] and Invizia plate with Dr. Harvey at [facility] Office visit 03/11/24: Here today for evaluation [...] C6 corpectomy and fusion on 11/18/[address] [facility]. Prior to surgery she had severe pain [...] the face. Seen in ED and prescribed [place] as well as amoxicillin for possible tooth infection. 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 Lots of cervical flexion/extension which aggravates [...] office visit 02/16/23 she was referred to [facility] for evaluation. Treating providers: --Neurosurgery Dr. [...] considerably related to these findings. PAIN EVALUATION 09/05/2024 2236 09/06/2024 1103 09/06/2024 1106 Pain Level: 8 [...] and fusion extending from C4 to C7. Watch Inspector Final Movement (topogram) images: No significant findings. Alignment: Alignment [...] axon loss changes in left C7 myotome, [id number] in degree electrically, with significant active/ongoing motor [...] HEP 3. Medication: none 4. Referrals: neurology, [facility] 5. Considerations: lumbar TFESI 6. Follow up: office visit after MRI I spent a total of 35 minutes on the date of the service which included preparing to see the patient, [id number] patient care, completing clinical documentation, obtaining and/or reviewing separately obtained history, performing a medically appropriate examination, counseling and educating the patient/family/caregiver, and ordering medications, tests, or procedures. SIGNATURE: Rakesh Thompson PA-C PATIENT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 the information to criminally investigate or prosecute any alcohol or drug abuse patient.[facility] HospitalIn the event this information is protected by the Federal Confidentiality of Alcohol and Drug Abuse Patient Records regulations: The Federal rules restrict any use of the information to criminally investigate or prosecute any alcohol or drug abuse patient.[facility] HospitalIn the event this information is protected by the Federal Confidentiality of Alcohol and Drug Abuse Patient Records regulations: The Federal rules restrict any use of the information to criminally investigate or prosecute any alcohol or drug abuse patient.[facility] HospitalIn the event this information is protected by the Federal Confidentiality of Alcohol and Drug Abuse Patient Records regulations: The Federal rules restrict any use of the information to criminally investigate or prosecute any alcohol or drug abuse patient.[facility] HospitalIn the event this information is protected by the Federal Confidentiality of Alcohol and Drug Abuse Patient Records regulations: The Federal rules restrict any use of the information to criminally investigate or prosecute any alcohol or drug abuse patient.[facility] HospitalIn the event this information is protected by the Federal Confidentiality of Alcohol and Drug Abuse Patient Records regulations: The Federal rules restrict any use of the information to criminally investigate or prosecute any alcohol or drug abuse patient.[facility] HospitalIn the event this information is protected by the Federal Confidentiality of Alcohol and Drug Abuse Patient Records regulations: The Federal rules restrict any use of the information to criminally investigate or prosecute any alcohol or drug abuse patient.[facility] HospitalIn the event this information is protected by the Federal Confidentiality of Alcohol and Drug Abuse Patient Records regulations: The Federal rules restrict any use of the information to criminally investigate or prosecute any alcohol or drug abuse patient.[facility] HospitalIn the event this information is protected by the Federal Confidentiality of Alcohol and Drug Abuse Patient Records regulations: The Federal rules restrict any use of the information to criminally investigate or prosecute any alcohol or drug abuse patient.[facility] HospitalIn the event this information is protected by the Federal Confidentiality of Alcohol and Drug Abuse Patient Records regulations: The Federal rules restrict any use of the information to criminally investigate or prosecute any alcohol or drug abuse patient.[facility] HospitalIn the event this information is protected by the Federal Confidentiality of Alcohol and Drug Abuse Patient Records regulations: The Federal rules restrict any use of the information to criminally investigate or prosecute any alcohol or drug abuse patient.[facility] HospitalIn the event this information is protected by the Federal Confidentiality of Alcohol and Drug Abuse Patient Records regulations: The Federal rules restrict any use of the information to criminally investigate or prosecute any alcohol or drug abuse patient.[facility] HospitalIn the event this information is protected by the Federal Confidentiality of Alcohol and Drug Abuse Patient Records regulations: The Federal rules restrict any use of the information to criminally investigate or prosecute any alcohol or drug abuse patient.[facility] HospitalIn the event this information is protected by the Federal Confidentiality of Alcohol and Drug Abuse Patient Records regulations: The Federal rules restrict any use of the information to criminally investigate or prosecute any alcohol or drug abuse patient.[facility] HospitalIn the event this information is protected by the Federal Confidentiality of Alcohol and Drug Abuse Patient Records regulations: The Federal rules restrict any use of the information to criminally investigate or prosecute any alcohol or drug abuse patient.[facility] HospitalIn the event this information is protected by the Federal Confidentiality of Alcohol and Drug Abuse Patient Records regulations: The Federal rules restrict any use of the information to criminally investigate or prosecute any alcohol or drug abuse patient.[facility] HospitalIn the event this information is protected by the Federal Confidentiality of Alcohol and Drug Abuse Patient Records regulations: The Federal rules restrict any use of the information to criminally investigate or prosecute any alcohol or drug abuse patient.[facility] HospitalIn the event this information is protected by the Federal Confidentiality of Alcohol and Drug Abuse Patient Records regulations: The Federal rules restrict any use of the information to criminally investigate or prosecute any alcohol or drug abuse patient.[facility] HospitalIn the event this information is protected by the Federal Confidentiality of Alcohol and Drug Abuse Patient Records regulations: The Federal rules restrict any use of the information to criminally investigate or prosecute any alcohol or drug abuse patient.[facility] HospitalIn the event this information is protected by the Federal Confidentiality of Alcohol and Drug Abuse Patient Records regulations: The Federal rules restrict any use of the information to criminally investigate or prosecute any alcohol or drug abuse patient.[facility] HospitalIn the event this information is protected by the Federal Confidentiality of Alcohol and Drug Abuse Patient Records regulations: The Federal rules restrict any use of the information to criminally investigate or prosecute any alcohol or drug abuse patient.[facility] HospitalIn the event this information is protected by the Federal Confidentiality of Alcohol and Drug Abuse Patient Records regulations: The Federal rules restrict any use of the information to criminally investigate or prosecute any alcohol or drug abuse patient.[facility] Care Teams (unrecognized sec tion and content) Aerosol Supervisor Relationship Specialty Start Date End Date Hugo Damon MD [address] [place] [address] PCP - General Family Medicine 02/19/23 Flower Mcdermott CNP [address] [place] [address] Internal Medicine 02/19/23 Aerosol Supervisor Relationship Specialty Start Date End Date Hugo Damon MD [address] [place] [address] PCP - General Family Medicine 02/19/23 Flower Mcdermott, [employer] [address] [facility] [place] [address] Internal Medicine 02/19/23 Aerosol Supervisor Relationship Specialty Start Date End Date Hugo Damon MD [address] [facility] [place] [address] PCP - General Family Medicine 02/19/23 Flower Mcdermott, [employer] [address] [facility] [place] [address] Internal Medicine 02/19/23 Team Status: Active Member [...] Provider Active S tart: February 15, 2024 Aerosol Supervisor Relationship Specialty Start Date End Date Hugo Damon MD [address] [facility] [place] [address] PCP - General Family Medicine 02/19/23 Flowre Mcdermott, [employer] [address] [facility] [place] [address] Internal Medicine 02/19/23 Hugo Damon MD [address] [facility] [address] Referring Family Medicine 12/01/23 Aerosol Supervisor Relationship Specialty Start Date End Date Hugo Damon MD [address] [facility] [place] [address] PCP - General Family Medicine 02/19/23 Flower Mcdermott, [employer] [address] [facility] [place] [address] Internal Medicine 02/19/23 Hugo Damon MD [address] [facility] [address] Referring Family Medicine 12/01/23 Aerosol Supervisor Relationship Specialty Start Date End Date Hugo Damon MD [address] [facility] [place] [address] PCP - General Family Medicine 02/19/23 Flower Mcdermott, [employer] [address] [facility] [place] [address] Internal Medicine 02/19/23 Hugo Damon MD [address] [facility] [address] Referring Family Medicine 12/01/23 Aerosol Supervisor Relationship Specialty Start Date End Date Hugo Damon MD [address] [facility] [place] [address] PCP - General Family Medicine 02/19/23 Flower Mcdermott, [employer] [address] [facility] [place] [address] Internal Medicine 02/19/23 Hugo Damon MD [address] [facility] [place] [address] Referring Family Medicine 12/01/23 Aerosol Supervisor Relationship Specialty Start Date End Date Huog Damon MD [address] [facility] [place] [address] PCP - General Family Medicine 02/19/23 Flower Mcdermott, [employer] [address] [facility] [place] [address] Internal Medicine 02/19/23 Hugo Damon MD [address] [facility] [place] [address] Referring Family Medicine 12/01/23 Aerosol Supervisor Relationship Specialty Start Date End Date Hugo Damon MD [address] [facility] [place] [address] PCP - General Family Medicine 02/19/23 Flower Mcdermott, [employer] [address] [facility] [place] [address] Internal Medicine 02/19/23 Hugo Damon MD [address] [facility] [place] [address] Referring Family Medicine 12/01/23 Aerosol Supervisor Relationship Specialty Start Date End Date Hugo Damon MD [address] [facility] [place] [address] PCP - General Family Medicine 02/19/23 Flower Mcdermott, [employer] [address] [facility] [place] [address] Internal Medicine 02/19/23 Hugo Damon MD [address] [facility] [place] [address] Referring Family Medicine 12/01/23 Aerosol Supervisor Relationship Specialty Start Date End Date Hugo Damon MD [address] [facility] [place] [address] PCP - General Family Medicine 02/19/23 Flower Mcdermott, [employer] [address] [facility] [place] [address] Internal Medicine 02/19/23 Hugo Damon MD [address] [facility] [place] [address] Referring Family Medicine 12/01/23 Aerosol Supervisor Relationship Specialty Start Date End Date Hugo Damon MD [address] [facility] [place] [address] PCP - General Family Medicine 02/19/23 Flower Mcdermott, [employer] [address] [facility] [place] [address] Internal Medicine 02/19/23 Hugo Damon MD [address] [facility] [place] [address] Referring Family Medicine 12/01/23 Aerosol Supervisor Relationship Specialty Start Date End Date Hugo Damon MD [address] [facility] [place] [address] PCP - General Family Medicine 02/19/23 Flower Mcdermott, [employer] [address] [facility] [place] [address] Internal Medicine 02/19/23 Huog Damon MD [address] [facility] [place] [address] Referring Family Medicine 12/01/23 Aerosol Supervisor Relationship Specialty Start Date End Date Hugo Damon MD [address] [facility] [place] [address] PCP - General Family Medicine 02/19/23 Flower Mcdermott, [employer] [address] [facility] [place] [address] Internal Medicine 02/19/23 Hugo Damon MD [address] [facility] [place] [address] Referring Family Medicine 12/01/23 Aerosol Supervisor Relationship Specialty Start Date End Date Hugo Damon MD [address] [facility] [place] [address] PCP - General Family Medicine 02/19/23 Flower Mcdermott, [employer] [address] [facility] [place] [address] Internal Medicine 02/19/23 Hugo Damon MD [address] [facility] [place] [address] Referring Family Medicine 12/01/23 Aerosol Supervisor Relationship Specialty Start Date End Date Hugo Damon MD [address] [facility] [place] [address] PCP - General Family Medicine 02/19/23 Flower Mcdermott, [employer] [address] [facility] [place] [address] Internal Medicine 02/19/23 Hugo Damon MD [address] [facility] [place] [address] Referring Family Medicine 12/01/23 Aerosol Supervisor Relationship Specialty Start Date End Date Hugo Damon MD [address] [facility] [place] [address] PCP - General Family Medicine 02/19/23 Flower Mcdermott, [employer] [address] [facility] [place] [address] Internal Medicine 02/19/23 Hugo Damon MD [address] [facility] [place] [address] Referring Family Medicine 12/01/23 Aerosol Supervisor Relationship Specialty Start Date End Date Hugo Damon MD [address] [facility] [place] [address] PCP - General Family Medicine 02/19/23 Flower Mcdermott, [employer] [address] [facility] [place] [address] Internal Medicine 02/19/23 Aerosol Supervisor Relationship Specialty Start Date End Date Hugo Daomn MD [address] [facility] [place] [address] PCP - General Family Medicine 02/19/23 Flower Mcdermott, [employer] [address] [facility] [place] [address] Internal Medicine 02/19/23 Aerosol Supervisor Relationship Specialty Start Date End Date Hugo Damon MD [address] [facility] [place] [address] PCP - General Family Medicine 02/19/23 Flower Mcdermott, [employer] [address] [facility] [place] [address] Internal Medicine 02/19/23 Hugo Damon MD [address] [facility] [place] [address] Referring Family Medicine 12/01/23 Aerosol Supervisor Relationship Specialty Start Date End Date Hugo Damon MD [address] [facility] [place] [address] PCP - General Family Medicine 02/19/23 Flower Mcdermott, [employer] [address] [facility] [place] [address] Internal Medicine 02/19/23 Hugo Damon MD [address] [facility] [place] [address] Referring Family Medicine 12/01/23 Aerosol Supervisor Relationship Specialty Start Date End Date Hugo Damon MD [address] [facility] [place] [address] PCP - General Family Medicine 02/19/23 Floewr Mcdermott, [employer] [address] [facility] [place] [address] Internal Medicine 02/19/23 Hugo Damon MD [address] [facility] [place] [address] Referring Family Medicine 12/01/23 Aerosol Supervisor Relationship Specialty Start Date End Date Hugo Damon MD [address] [facility] [place] [address] PCP - General Family Medicine 02/19/23 Flower Mcdermott, [employer] [address] [facility] [place] [address] Internal Medicine 02/19/23 Hugo Damon MD [address] [facility] [place] [address] Referring Family Medicine 12/01/23 Aerosol Supervisor Relationship Specialty Start Date End Date Hugo Damon MD [address] [facility] [place] [address] PCP - General Family Medicine 02/19/23 Flower Mcdermott, [employer] [address] [facility] [place] [address] Internal Medicine 02/19/23 Hugo Damon MD [address] [facility] [place] [address] Referring Family Medicine 12/01/23 Aerosol Supervisor Relationship Specialty Start Date End Date Hugo Damon MD [address] [facility] [place] [address] PCP - General Family Medicine 02/19/23 Flower Mcdermott, [employer] [address] [facility] [place] [address] Internal Medicine 02/19/23 Hugo Damon MD [address] [facility] [place] [address] Referring Family Medicine 12/01/23 Aerosol Supervisor Relationship Specialty Start Date End Date Hugo Damon MD [address] [facility] [place] [address] PCP - General Family Medicine 02/19/23 Flower Mcdermott CNP [address] [place] [address] Internal Medicine 02/19/23 Hugo Damon MD [address] [place] [address] Referring Family Medicine 12/01/23 Aerosol Supervisor Relationship Specialty Start Date End Date Flower Mcdermott APRN - NAHUM [address] [place] [address] PCP - General 06/14/25 Team Status: Active Member Role Status Dates SAAD Abreu Primary Care Provider Active Team Status: Active Member Role Status Dates NON STAFF Primary Care Provider Active Start: June 20, 2025 Sukumar Hill MD Attending Provider Active Start: June 20, 2025 Team Status: Inactive Member Role Status Dates Mckenna Paul APRN Attending Provider Active Start: June 27, 2025 End: June 27, 2025 SAAD Abreu Primary Care Provider Active Start: June 27, 2025 End: June 27, 2025 Goals (unrecognized section and content) Goals may be documented in a n alternate section Ordered Prescriptions (unrec ognized section and content) Prescription Sig Dispense Quantity Refills Last Filled Start Date End Date oxyCODONE-acetamin ophen (PERCOCET) 5-325 MG per tabletIndications: Closed compression fracture of L2 lumbar vertebra, initial encounter ([facility]) Take 1 tablet by mouth every 6 hours as needed for Pain for up to 3 days. Intended supply: 3 days. Take lowest dose possible to manage pain Max Daily Amount: 4 tablets 12 tablet 06/14/2025 5 cyclobenzaprine (FLEXERIL) 10 MG tablet Take 1 tablet by mouth 3 times daily as needed for Muscle spasms 21 tablet 06/14/2025 5 oxyCODONE-acetamin ophen (PERCOCET) 5-325 MG per tabletIndications: Closed compression fracture of L2 lumbar vertebra, initial encounter ([facility]) Take 1 tablet by mouth every 6 hours as needed for Pain for up to 3 days. Intended supply: 3 days. Take lowest dose possible to manage pain Max Daily Amount: 4 tablets 12 tablet 06/14/2025 5 cyclobenzaprine (FLEXERIL) 10 MG tablet Take 1 tablet by mouth 3 times daily as needed for Muscle spasms 21 tablet 06/14/2025 5 Scheduled Active and Recently Administ ered Medications (unrecognized section and content) Medication Order 06/12/2025 06/13/2025 06/14/2025 fentaNYL (SUBLIMAZE) injection 50 mcg (COMPLETED) 50 mcg, IntraVENous, ONCE, 1 dose, On Thu06/14/25 at 1345, If oral and IV narcotics ordered, use oral first and only use IV if oral is ineffective or cannot take oral. Do Not give oral and IV within 1 hour of each other unless specifically ordered. 1350 (Given - Provid er: Lachelle Smith RN) sodium chloride 0.9 % bolus 1,000 mL (COMPLETED) 1,000 mL, IntraVENous, at 1,000 mL/hr, Administer over 1 Hours, ONCE, On Thu06/14/25 at 1345, For 1 dose 1518 (New Bag - Prov ider: Paola Campos RN)1630 (Stopped - Provider: Paola Campos RN) PRN Medication Order 06/12/2025 06/13/2025 06/14/2025 iopamidol (ISOVUE-370) 76 % injection 75 mL (COMPLETED) 75 mL, IntraVENous, IMG ONCE PRN, 1 dose, Starting on Thu06/14/25 at 1421, Until Thu06/14/25 at 1452, Other 1452 (Given - Provid er: Janine Gomez) FOR RECORDS PERTAINING TO PATIENTS WHO ARE [...] BE BASED ON THE PRIMARY CLINICAL RECORDS. [facility] [employer] [facility]. provides no warranty or guarantee of the accuracy or completeness of information in this document.
== END 2025-08-04 12:53 | disposition home or self-care (01) ==
LOC: CT 12:52
PROVIDERS: PCP Nurse Practitioner Family; Visit Provider Nurse Practitioner Family
DX: R91.1 Solitary pulmonary nodule (principal); J43.9 Emphysema, unspecified; K80.20 Calculus of gallbladder without cholecystitis without obstruction
CPT/HCPCS: 71250

== ENCOUNTER 2025-08-11 11:05 | Outpatient (OUT) | payer OTHER, SELFPAY ==
--- NOTE | 2025-08-11 11:06 | US_ITS ---
The [address] [address] Patient Name: NISHA MONTAGUE MRN: [id number] date: 1975 Sex: F Assigned Patient Location: [place] Current Patient Location: [place] Accession/Order Number: [id number] Exam Date: 08/11/2025 11:07 Report Date: 08/11/2025 14:12 At the request of: ALEJANDRO MCDERMOTT Procedure: US right upper quadrant LIMITED ABDOMINAL ULTRASOUND: CLINICAL HISTORY: right upper quadrant abdominal pain COMPARISON: CT abdomen and pelvis 06/14/2025 TECHNIQUE: Grayscale and color Doppler images of the right upper quadrant organs were obtained. FINDINGS: Pancreas: Visualized portions appear unremarkable. Liver: Remarkable. Gallbladder: Cholelithiasis. CBD: 8.4 mm. RT KIDNEY: No Hydronephrosis US/US right upper quadrant IMPRESSION: CHOLELITHIASIS WITH PROMINENT CBD. IF DEVELOPING ACUTE CHOLECYSTITIS IS OF CLINICAL CONCERN, FURTHER EVALUATION WITH HIDA SCAN IS SUGGESTED. Impression dictated by: Ruben Kelsey Jr., D.O. 08/11/2025 2:12 PM Dictation Location: [place] [address] Electronically authenticated by: [id number] Y Date: 08/11/2025 14:12
--- OUTSIDE RECORDS SUMMARY | 2025-08-11 11:10 | XMS_ITS | CCD ---
Author Organization [facility] [place] Care Team Providers Care Dragline Operator Name Role Phone DELANO QUINTANILLA Unavailable Unavailable SVENPEPE Dayna Unavailable Unavailable José Miguel Beltran Unavailable Armand De Paz Unavailable José Miguel Fuentes Unavailable Hugo Damon MD Primary Care Provider [phone] Sharron CATCH BASIN CLEANER, Flower S Unavailable SHARRON, FLOWER Consulting Unavailable SHARRON, FLOWER [...] Consulting Unavailable SHARRON, FLOWER Primary Care Unavailable HSARRON, FLOWER Attending Unavailable SHARRON, FLOWER Admitting Unavailable SHARRON, FLOWER Consulting Unavailable SHARRON, FLOWER Primary Care Unavailable BELINDAY ., DR ARIAS Attending Unavailable BELINDAY ., DR RAIAS Admitting Unavailable SHARRON, FLOWER Consulting Unavailable SHARRON, FLOWER Primary Care Unavailable SHARRON, FLOWER Attending Unavailable SHARRON, FLOWER Admitting Unavailable CROW, DR DANIS Harris Consulting Unavailable SHARRON, FLOWER Primary Care Unavailable SHARRON, FLOWER Attending Unavailable SHARRON, FLOWER Admitting Unavailable SHARRON, FLOWER Consulting Unavailable CROW, DR DANIS Harris Consulting Unavailable SHARRON, FLOWER Primary Care Unavailable EVERARDO ., DR WASHINGTON Attending Unavailable EVERARDO ., DR WASHINGTON Admitting Unavailable EVERARDO ., DR WASHINGTON Consulting Unavailable WHITETOP, DR DANIS Harris Consulting Unavailable SHARRON, FLOWER [...] Primary Care Unavailable DANIS ORTEGA Consulting Unavailable NORAH ARRIOLA Consulting Unavailable JENELLE ., NORAH Attending Unavailable JENELLE ., NORAH Admitting Unavailable SHARRON, FLOWER Primary Care Unavailable KELLEE CANO Consulting Unavailable RICHIE CRAWFORD Attending Unavailable DANYELL ., RICHIE Admitting Unavailable SHARRON, FLOWER Primary Care Unavailable JENELLE ., NORAH Consulting Unavailable DANYELL .RICHIE Consulting Unavailable NON STAFF Primary Care Provider Unavailumberto Hahn NP-Dayna Crenshaw Attending Provider [phone] Hugo Damon MD Primary Care Provider [phone] Hugo Damon MD Unavailable Hugo Damon MD Primary Care Provider [phone] Unavailable Primary Care Provider Unavailumberto Mcdermott CRIME SCENE SPECIALIST - NAHUM, Flower S Primary Care Provide r DEON FUENTES Attending Unavailable SHARRON, FLOWER S Primary Care Unavailable NON STAFF Primary Care Provider UnavailSukumar Morales MD Attending Provider Mckenna Paul APRN Attending Provider Sharron CASINO ASSISTANT MANAGER-C, Flower Carvere Primary Care Provider ANGELIC POPE Attending Unavailable RAKESH THOMPSON Referring Unavailable HOY, HUGO M Primary Care Unavailable GODFRAY, RAKESH Referring Unavailable HOY, HUGO M Primary Care Unavailable GODFRMICHEAL RAKESH Attending Unavailable HOY, HUGO M Primary Care Unavailable GODFRAY, RAKESH Attending Unavailable HOY, HUGO M Primary Care Unavailable WOODY, SAGARIKA M Attending Unavailable GODFRAY, RAKESH Referring Unavailable HOY, HUGO M Primary Care Unavailable WOODY, SAGARIKA M Referring Unavailable HOY, HUGO M Primary Care Unavailable JUAN MANUEL YU Attending Unavailable WOODY, SAGARIKA M Referring Unavailable HOY, HUGO M Primary Care Unavailable WOODY, SAGARIKA M Referring Unavailable HOY, HUGO M Primary Care Unavailable TANG MCGEE Attending Unavailable TANG MCGEE Attending Unavailable TANG MCGEE Attending Unavailable NON STAFF Primary Care Provider UnavailSukumar Morales MD Attending Provider Wale Dillard PA-C Emergency Provider Wale Dillard Attending Unavailable Wale Dillard Admitting Unavailable Flower Mcdermott Primary Care Unavailable NON STAFF Primary Care Unavailable Sukumar Hill Attending Unavailab Sukumar Box Admitting Unavailab Suresh Milton Attending Unavailable Allergies Allergy Classification Reported Allergen(s) Allergy Type Date of Onset Reaction(s) Facility (20 sources) Morphine; Translations: [MORPHINE] Drug Allergy 07-22-20 Vomiting, Nausea And Vomiting [facility] (6 sources) Orphenadrine; Translations: [Norflex] Drug Allergy heart race [facility] (15 sources) Sulfamethoxazole / Trimethoprim Drug Allergy 10-29-20 16 itching [facility] Other (7 sources) tiZANidine Drug Allergy 02-15-20 24 no appetite and paranoia [facility] (3 sources) Levoquin Propensity to adverse reactions joint swelling [facility] Other (20 sources) Glucocorticoid preparation; Translations: [CORTICOSTEROIDS (GLUCOCORTICOIDS)] Drug Intolerance 03-10-20 23 Unknown [facility] (20 sources) Non-steroidal anti-inflammatory agent; Translations: [NSAIDS (NON-STEROIDAL ANTI-INFLAMMATORY DRUG)] Drug Intolerance 03-10-20 23 Unknown [facility] (2 sources) Azithromycin; Translations: [Zithromax] Drug Allergy 11-24-19 18 [facility] (1 source) Corticosteroids Drug allergy (disorder) 11-02-19 23 [facility] (2 sources) levoFLOXacin; Translations: [Levaquin] Drug Allergy [facility] (2 sources) Morphine Drug Allergy [facility] (1 source) NSAIDs Drug allergy (disorder) 11-02-19 23 [facility] (2 sources) Sulfamethoxazole / Trimethoprim; Translations: [Bactrim] Drug Allergy 11-24-19 18 [facility] (3 sources) tiZANidine; Translations: [Zanaflex] Drug Allergy 03-22-20 18 [facility] (17 sources) Azithromycin; Translations: [azithromycin] Drug Allergy 10-29-20 16 Nausea [facility] (17 sources) levoFLOXacin; Translations: [levofloxacin] Drug Allergy 11-11-19 17 Swelling [facility] (16 sources) Orphenadrine; Translations: [orphenadrine] Drug Allergy 10-29-20 16 Palpitations, heart race [facility] (5 sources) Sulfamethoxazole; Translations: [sulfamethoxazole] Drug Allergy 02-15-20 24 Agitated, itching [facility] (5 sources) Sulfonamides (Antibiotic); Translations: [Sulfa (Sulfonamide Antibiotics)] Allergy to substance 02-15-20 24 Agitated [facility] (5 sources) Trimethoprim; Translations: [trimethoprim] Drug Allergy 02-15-20 24 Agitated, itching [facility] (12 sources) levoFLOXacin Drug Allergy 10-29-20 16 [facility] (16 sources) Non-steroidal anti-inflammatory agent Drug Intolerance 03-10-20 23 Other, Unknown [facility] (12 sources) tiZANidine Drug Allergy 03-16-20 18 [facility] (11 sources) Wound Dressing Adhesive Drug Intolerance 11-11-19 17 Itching [facility] (1 source) Orphenadrine Drug Allergy 10-29-20 16 [facility] (1 source) Silicone adhesive tape Propensity to adverse reactions to drug 11-11-[address] [facility] (2 sources) NSAIDS (Non-Steroidal Anti-Inflamma Allergy to substance 06-27-20 25 GI Bleed [facility] (2 sources) steriods Allergy to substance 06-27-20 25 GI Bleed [facility] (1 source) Morphine Drug Allergy 02-15-20 [facility] (1 source) tiZANidine Drug Allergy 02-15-20 [facility] Medications Current Medications Medication [...] by mouth once daily in the morning take 1 tablet by donna th once [...] oral tablet (20 sources) Benzodiazepine Start: 02-15-2024 Start: 01-19-2024 End: 09-06-2024 take 2 tablets [...] with radiology test) (1 source) Start: 02-29-20 End: 03-01-20 24 enteric contrast (will be [...] (20 sources) Proton Pump Inhibitor Start: 02-15-20 Esomeprazole Magnesium Active MG PO February 15, 2024 12:00am Start: 05-02-2023 End: 05-02-2025 Start: 05-02-2023 End: 05-02-2025 take 1 capsule [...] tablet 07/10/2025 07/14/2025 Active Start: 09-28-2024 End: 10-03-2024 fluconazole (Diflucan) 150 M G tablet Indications: Yeast infection Take 1 tablet (150 mg) by mouth 1 (one) time for 1 dose Repeat in 7 days if symptoms persist. 2 tablet 1 09/28/2024 10/03/2024 Discontinued hyoscyamine sulfate 0.125 mg oral tablet (20 sources) Start: 02-15-2024 End: 04-04-2025 Start: 02-15-2024 Hyoscyamine Carver lfate Active MG [...] link. 1 Each 0 02/29/2024 03/01/2024 Active omeprazole 20 mg delayed release oral capsule (7 sources) Proton Pump Inhibitor take 1 capsule by mouth once daily omeprazole (PRILOSEC) 20 MG delayed release capsule Take 20 mg by mouth daily Active Omeprazole Activ e PriLOSEC Active 24 hr oxybutynin chloride 15 mg extended release oral tablet (20 sources) Cholinergic Muscarinic Antagonist Start: 02-15-2024 take 1 tablet by mouth every twenty-four hours Start: 02-15-2024 Oxybutynin Chl oride Active MG [...] every afternoon. pregabalin 50 mg oral capsule (5 sources) Start: 06-30-2025 take 1 capsule by mouth once daily pregabalin (Lyrica) 50 MG capsule Take 50 mg by mouth Daily 06/30/2025 Active Start: 06-29-2025 End: 08-02-2025 take 1 capsule by mouth twice daily sertraline 100 mg oral tablet (20 sources) Serotonin Reuptake Inhibitor Start: 01-03-2018 take 1 tablet by mouth once daily take 2 tablets by mouth once rachel ly sertraline (ZOLOFT) 50 MG tablet Take 2 tablets by mouth daily Active Sertraline HCl N ot-Taking Comment on above: Take 100 mg by mouth every morning. sucralfate 1000 mg oral tablet (8 sources) Aluminum Complex Start: 4 End: take 1 tablet by mouth twice [...] fracture of L2 lumbar vertebra, initial encounter ([facility]) Take 1 tablet by mouth every 6 [...] therapy completed) diazePAM 2 mg oral tablet (4 sources) Benzodiazepine Start: 01-03-2018 End: 01-05-2018 take [...] propionate 0.05 mg/actuat metered dose nasal spray (8 sources) Corticosteroid Start: 01-03-2018 End: 02-15-2024 Fluticasone Propionate (Flonase Allergy Relief) 50 mcg/actuation [place],Suspension Discontinued 2 SPRAY INTRANASAL Daily January 03, [...] Ketorolac Tromethamine Not-Taking Ketorolac Tromet hamine Active meloxicam 7.5 mg oral tablet (2 sources) Nonsteroidal Anti-inflammatory Drug Start: 06-27-2025 End: 06-29-2025 take 1 tablet by mouth once daily Meloxicam 7.5 mg tablet Discontinued 7.5 MG PO Daily June 27, 2025 12:00am June 29, 2025 1:23pm Methocarbamol (3 sources) Muscle Relaxant Robaxin Not-Taking methylPREDNISolone 4 mg oral tablet (3 sources) Corticosteroid Start: 11-07-2020 Medrol (Wiliam) 4 MG as directed Orally for 6 days Nov, Not-Taking montelukast 10 mg oral tablet (3 sources) Leukotriene Receptor Antagonist End: 09-28-2024 take 1 tablet by mouth at bedtime montelukast (Singulair) 10 MG tablet Take 10 mg by mouth at bedtime. 09/28/2024 Discontinued mupirocin 0.02 mg/mg topical ointment (3 sources) RNA Synthetase Inhibitor Antibacterial Start: 08-02-2019 Mupirocin 2 % 1 application to affected area Externally 2 times a day for 7 days Aug, Not-Taking naproxen 375 mg oral tablet (3 sources) Nonsteroidal Anti-inflammatory Drug Start: 08-02-2019 take 1 tablet by mouth every twelve hours at mealtime as needed Naproxen 375 MG 1 tablet with food or milk as needed Orally every 12 hrs for 7 days Aug, Not-Taking pantoprazole 20 mg delayed release oral tablet (5 sources) Proton Pump Inhibitor Start: 01-03-2018 End: 02-15-2024 take 1 tablet by mouth once daily [...] dose Triamcinolone (2 sources) Corticosteroid Start: 11-07-2020 KENALOG - 10 m g Nov, 60 mg varenicline 1 mg oral tablet (5 sources) Partial Cholinergic Nicotinic Agonist Start: 02-15-2024 [...] 02-29-2024 Episodic Other aftercare (1 source) Other longterm (current) drug therapy; Translations: [OTH DIRECTOR PART CURRENT DRUG THERAPY] Onset: 03-10-2023 Episodic Other [...] disorders of vagina] 10-03-2024 Episodic Other fractures (6 sources) Compression fracture of L2; Translations: [Wedge compression fracture of second lumbar vertebra, initial encounter for closed fracture] 06-14-2025 Episodic Other fractures (2 sources) Wedge compression fracture of second lumbar vertebra, initial encounter for closed fracture; Translations: [Wedge compression fracture of second lumbar vertebra, initial encounter for closed fracture (HCC)] Onset: 06-14-2025 Episodic Other gastrointestinal disorders (2 sources) Irritable bowel syndrome; Translations: [Mixed irritable bowel syndrome] 02-29-2024 Chronic Other injuries and conditions due to external causes (4 sources) Muscle strain; Translations: [Other injury of [...] Translations: [Radiculopathy, cervical region] Onset: 03-16-2018 Episodic Sprains and strains (7 sources) Strain of other muscle(s) and tendon(s) [...] Test Name Value Interpretation Reference Range Facility [facility] 06-16-2025 [facility] Telephone (SSINDP) AURORA MONTAGUE ([id number]) 1975 F Date Time Provider Department 06/16/25 RAKESH THOMPSON [facility] During your visit today, we recorded the [...] Bleeding Date Reviewed: 11/11/2024 Reviewed by: Laura Villareal RT(R) - Fully Assessed Reason for Visit: [...] Status:Closed by TRACIE AYALA on 06/19/25 Normal [facility] CBC with Auto Differentialon 06-14-2025 Basophils (Bld) [#/Vol] 0.01 10*3/uL [facility] Basophils/100 WBC (Bld) 0 % 0 - 2 % [facility] Eosinophils (Bld) [#/Vol] 0.06 10*3/uL [facility] Eosinophils/100 WBC (Bld) 1 % 0 - 5 % [facility] Erythrocyte distribution width (RBC) [Ratio] 13.1 % 12.1 - 15.2 % [facility] Hematocrit (Bld) [Volume fraction] 40.6 % 36.0 - 46.0 % [facility] Hemoglobin (Bld) [Mass/Vol] 13.6 g/dL 12.0 - 16.0 g/dL [facility] Immature granulocytes (Bld) [#/Vol] 0.07 10*3/uL [facility] Immature granulocytes/100 WBC (Bld) 1 % 0 - 5 % [facility] Lymphocytes/100 WBC (Bld) 33 % 15 - 40 % [facility] Lymphocytes/100 WBC (Bld) 2.84 % [facility] MCH (RBC) [Entitic mass] 31.5 pg 26.0 - 34.0 pg [facility] MCHC (RBC) [Mass/Vol] 33.5 g/dL 31.0 - 37.0 g/dL [facility] MCV (RBC) [Entitic vol] 94.0 fL 80.0 - 100.0 fL [facility] Monocytes/100 WBC (Bld) 6 % 4 - 8 % [facility] Monocytes/100 WBC (Bld) 0.53 % [facility] Neutrophils/100 WBC (Bld) 59 % 47 - 75 % [facility] Platelet mean volume (Bld) [Entitic vol] 9.9 fL 6.0 - 12.0 fL [facility] Platelets (Bld) [#/Vol] 213 10*3/uL [facility] RBC (Bld) [#/Vol] 4.32 10*6/uL 4.00 - 5.2 0 m/uL [facility] Segmented neutrophils/100 WBC (Bld) 5.06 % [facility] WBC other (Bld) [#/Vol] 8.6 [facility] CBC with Diffon 06-14-2025 Abs. Basophil 0.01 k/uL Normal 0.00-0.20 [facility] Comment on above: Performed By: #### C DP, CP, HCG #### [facility] [address] [place] [address] Title Supervisor: Danis Burris MD Abs.Imm.Granulocyte 0.07 k/uL Normal 0.00-0.30 [facility] Comment on above: Performed By: #### C DP, CP, HCG #### [facility] [address] [place] [phone] Title Supervisor: Danis Burris MD Abs.Neutrophil (Seg) 5.06 k/uL Normal 2.5-7.0 [facility] Comment on above: Performed By: #### C DP, CP, HCG #### [facility] [address] [id number] Title Supervisor: Danis Burris MD Basophils/100 WBC (Bld) 0 % Normal 0-2 [facility] Comment on above: Performed By: #### C DP, CP, HCG #### [facility] [address] [place] [address] Title Supervisor: Danis Burris MD Eosinophils (Bld) [#/Vol] 0.06 10*3/uL Normal 0.00-0.40 [facility] Comment on above: Performed By: #### C DP, CP, HCG #### [facility] [address] [phone] Title Supervisor: Danis Burris MD Eosinophils/100 WBC (Bld) 1 % Normal 0-5 [facility] Comment on above: Performed By: #### C DP, CP, HCG #### [facility] [address] [place] [address] Title Supervisor: Danis Burris MD Erythrocyte distribution width (RBC) [Ratio] 13.1 % Normal 12.1-15.2 [facility] Comment on above: Performed By: #### C DP, CP, HCG #### [facility] [address] [place] [address] Title Supervisor: Danis Burris MD Hematocrit (Bld) [Volume fraction] 40.6 % Normal 36.0-46.0 [facility] Comment on above: Performed By: #### C DP, CP, HCG #### [facility] [address] [place] [address] Title Supervisor: Danis Burris MD Hemoglobin (Bld) [Mass/Vol] 13.6 g/dL Normal 12.0-16.0 [facility] Comment on above: Performed By: #### C DP, CP, HCG #### [facility] [address] [place] [address] Title Supervisor: Danis Burris MD Immature granulocytes/100 WBC (Bld) 1 % Normal 0-5 [facility] Comment on above: Performed By: #### C DP, CP, HCG #### [facility] [address] [phone] Title Supervisor: Danis Burris MD Lymphocytes (Bld) [#/Vol] 2.84 10*3/uL Normal 1.00-4.80 [facility] Comment on above: Performed By: #### C DP, CP, HCG #### [facility] [address] [place] [address] Title Supervisor: Danis Burris MD Lymphocytes/100 WBC (Bld) 33 % Normal 15-40 [facility] Comment on above: Performed By: #### C DP, CP, HCG #### [facility] [address] [place] [address] Title Supervisor: Danis Burris MD MCH (RBC) [Entitic mass] 31.5 pg Normal 26.0-34.0 [facility] Comment on above: Performed By: #### C DP, CP, HCG #### [facility] [address] [place] [address] Title Supervisor: Danis Burris MD MCHC (RBC) [Mass/Vol] 33.5 g/dL Normal 31.0-37.0 [facility] Comment on above: Performed By: #### C DP, CP, HCG #### [facility] [address] [place], [place] [phone] Title Supervisor: Danis Burris MD MCV (RBC) [Entitic vol] 94.0 fL Normal 80.0-100.0 [facility] Comment on above: Performed By: #### C DP, CP, HCG #### [facility] [address] [place] [address] Title Supervisor: Danis Burris MD Monocytes (Bld) [#/Vol] 0.53 10*3/uL Normal 0.00-1.00 [facility] Comment on above: Performed By: #### C DP, CP, HCG #### [facility] [address] [place] [address] Title Supervisor: Danis Burris MD Monocytes/100 WBC (Bld) 6 % Normal 4-8 [facility] Comment on above: Performed By: #### C DP, CP, HCG #### [facility] [address] [place] [phone] Title Supervisor: Danis Burris MD Neutrophil (Seg) 59 % Normal 47-75 [facility] Comment on above: Performed By: #### C DP, CP, HCG #### [facility] [address] [place] [address] Title Supervisor: Danis Burris MD Platelet mean volume (Bld) [Entitic vol] 9.9 fL Normal 6.0-12.0 [facility] Comment on above: Performed By: #### C DP, CP, HCG #### [facility] [address] [place], [place] [phone] Title Supervisor: Danis Burris MD Platelets (Bld) [#/Vol] 213 10*3/uL Normal 140-450 [facility] Comment on above: Performed By: #### C DP, CP, HCG #### [facility] [address] [place] [id number] Title Supervisor: Danis Burris MD RBC (Bld) [#/Vol] 4.32 10*6/uL Normal 4.00-5.20 [facility] Comment on above: Performed By: #### C SUSY WILSON, HCG #### [facility] [address] [place], [place] [id number] Title Supervisor: Danis Burris MD WBC (Bld) [#/Vol] 8.6 10*3/uL Normal 3.5-11.0 [facility] Comment on above: Performed By: #### C KATIE CP, HCG #### [facility] [address] [place] [address] Title Supervisor: Danis Burris MD CT CERVICAL SPINE WO [...] Julián Montes MD 06/14/25 Final result Normal [facility] CT CHEST ABDOMEN PELVIS W CO NTRASTon [...] MD 06/14/25 Edited Result - FINAL Normal [facility] CT Cervical spine WO contras ton 06-14-2025 1. No acute bony injury to the cervical spine. 2. Postsurgical change as described. 3. Mild interval arthritic progression of decrease in height of the disc space at C3-C4. [facility] CONSOLIDATED EXAMINATION: CT CERVICAL SPINE WO CONTRAST [...] is intact. There is no mastoid effusion. [facility] Julián Moran MD - 06/14/2025 EXAMINATION: CT CERVICAL SPINE [...] height of the disc space at C3-C4. [facility] Radiology Study observation (narrative) [facility] CT Cervical spine WO contras tOrdered By: Julián Montes on 06-14-2025 [facility] Work Phone: CT Chest and Abdomen and [...] 3. Other incidental findings as described above. [facility] CONSOLIDATED EXAMINATION: CT CHES T ABDOMEN PELVIS [...] is unremarkable. The uterus is surgically absent. [facility] Julián Montes MD - 06/14/2025 EXAMINATION: [...] 3. Other incidental findings as described above. [facility] Radiology Study observation (narrative) [facility] CT HEAD WO CONTRASTon 2024 CT HEAD [...] Rica Dexter DO 06/14/25 Final result Normal [facility] CT Head WO contraston 2024 No acute intracranial abnormality identified. [facility] CONSOLIDATED EXAM: CT HEAD WO CONTRAST STUDY [...] face and scalp are within normal limits. [facility] Rica Dexter DO - 06/14/2025 EXAM: CT HEAD WO [...] limits. IMPRESSION: No acute intracranial abnormality identified. [facility] Radiology Study observation (narrative) [facility] CT Head WO contrastOrdered B y: Rica Dexter on 06-14-2025 [facility] Work Phone: CT LUMBAR SPINE WO CONTRASTo [...] Julián Montes MD 06/14/25 Final result Normal [facility] Comp Metabolic Profon 2024 Albumin [Mass/Vol] 4.1 g/dL Normal 3.5-5.2 [facility] Comment on above: Performed By: #### C DP, CP, HCG #### [facility] [address] [place] [address] Title Supervisor: Danis Burris MD Albumin/Glob Ratio 1.7 Normal 1.0-2.5 [facility] Comment on above: Performed By: #### C DP, CP, HCG #### [facility] [address] [place] [address] Title Supervisor: Danis Burris MD Alkaline Phos 72 U/L Normal 35-104 [facility] Comment on above: Performed By: #### C DP, CP, HCG #### [facility] [address] [place] [address] Title Supervisor: Danis Burris MD ALT [Catalytic activity/Vol] 43 U/L High 5-33 [facility] Comment on above: Performed By: #### C DP, CP, HCG #### [facility] [address] [place] [address] Title Supervisor: Danis Burris MD Anion gap [Moles/Vol] 12 mmol/L Normal 9-17 [facility] Comment on above: Performed By: #### C DP, CP, HCG #### [facility] [address] [place], [place] [phone] Title Supervisor: Danis Burris MD AST [Catalytic activity/Vol] 27 U/L Normal <32 [facility] Comment on above: Performed By: #### C DP, CP, HCG #### [facility] [address] [phone] Title Supervisor: Danis Burris MD Bilirubin [Mass/Vol] 0.3 mg/dL Normal 0.3-1.2 [facility] Comment on above: Performed By: #### C DP, CP, HCG #### [facility] [address] [place] [address] Title Supervisor: Danis Burris MD Calcium [Mass/Vol] 8.7 mg/dL Normal 8.6-10.4 [facility] Comment on above: Performed By: #### C DP, CP, HCG #### [facility] [address] [place], [place] [phone] Title Supervisor: Danis Burris MD Chloride [Moles/Vol] 108 mmol/L High 98-107 [facility] Comment on above: Performed By: #### C DP, CP, HCG #### [facility] [address] [place] [phone] Title Supervisor: Danis Burris MD CO2 [Moles/Vol] 21 mmol/L Normal 20-31 [facility] Comment on above: Performed By: #### C DP, CP, HCG #### [facility] [address] [place] [address] Title Supervisor: Danis Burris MD Creatinine [Mass/Vol] 0.9 mg/dL Normal 0.5-0.9 [facility] Comment on above: Performed By: #### C DP, CP, HCG #### [facility] [address] [place], [place] [id number] Title Supervisor: Danis Burris MD GFR/1.73 sq M.predicted among non-blacks MDRD (S/P/Bld) [Vol rate/Area] 78 mL/min/{1.73_m2} Normal >60 [facility] Comment on above: Result Comment: These results [...] By: #### C DP, CP, HCG #### [facility] [address] [place] [address] Title Supervisor: Danis Burris MD Glucose [Mass/Vol] 105 mg/dL High 70-99 [facility] Comment on above: Performed By: #### C DP, CP, HCG #### [facility] [address] [place], [place] [id number] Title Supervisor: Danis Burris MD Potassium [Moles/Vol] 3.7 mmol/L Normal 3.7-5.3 [facility] Comment on above: Performed By: #### C DP, CP, HCG #### [facility] [address] [place] [address] Title Supervisor: Danis Burris MD Protein [Mass/Vol] 6.5 g/dL Normal 6.4-8.3 [facility] Comment on above: Performed By: #### C DP, CP, HCG #### [facility] [address] [place] [address] Title Supervisor: Danis Burris MD Sodium [Moles/Vol] 141 mmol/L Normal 135-144 [facility] Comment on above: Performed By: #### C DP, CP, HCG #### [facility] [address] [place] [address] Title Supervisor: Danis Burris MD Urea nitrogen [Mass/Vol] 11 mg/dL Normal 6-20 [facility] Comment on above: Performed By: #### C DP, CP, HCG #### [facility] [address] [place] [address] Title Supervisor: Danis Burris MD Comprehensive Metabolic [facility]ane [facility] 06-14-2025 Albumin [Mass/Vol] 4.1 g/dL 3.5 - 5.2 g/dL [facility] Albumin/Globulin [Mass ratio] 1.7 {ratio} 1.0 - 2.5 [facility] ALP [Catalytic activity/Vol] 72 U/L 35 - 104 U/L [facility] ALT [Catalytic activity/Vol] 43 U/L High 5 - 33 U/L [facility] Anion gap [Moles/Vol] 12 mmol/L 9 - 17 mmol/L [facility] AST [Catalytic activity/Vol] 27 U/L NINF - 32 U/L [facility] Bilirubin [Mass/Vol] 0.3 mg/dL 0.3 - 1 .2 mg/dL [facility] Calcium [Mass/Vol] 8.7 mg/dL 8.6 - 10. 4 mg/dL [facility] Chloride [Moles/Vol] 108 mmol/L High 98 - 10 7 mmol/L [facility] CO2 [Moles/Vol] 21 mmol/L 20 - 31 mmol/L [facility] Creatinine [Mass/Vol] 0.9 mg/dL 0.5 - 0.9 mg/dL [facility] Est, Glom Filt Rate 78 - PINF [facility] Comment on above: These results are not [...] 105 mg/dL High 70 - 99 mg/dL [facility] Interpretation and review of laboratory results Abnormal [facility] Potassium [Moles/Vol] 3.7 mmol/L 3.7 - 5.3 mmol/L [facility] Protein [Mass/Vol] 6.5 g/dL 6.4 - 8.3 g/dL [facility] Sodium [Moles/Vol] 141 mmol/L 135 - 144 mmol/L [facility] Urea nitrogen [Mass/Vol] 11 mg/dL 6 - 20 mg/dL [facility] HCG Qualitative, Serumon HCG ( test) Ql Negative NEGATIVE [facility] Comment on above: Specimens with hCG l evels near the threshold of the test (25 mIU/mL) may give a negative or indeterminate result. In such cases, another test should be performed with a new specimen in 48-72 hours. If early is suspected clinically in this setting, correlation with quantitative serum b-hCG level is suggested. [facility] has confirmed the use of plasma for this test. This has not been cleared or approved by the U.S. Food and Drug Administration. The FDA has determined that such clearance is not necessary. [facility] HCG Screen, Bloodon 06-14-20 25 HCG Screen, Blood Negative Normal NEG [facility] Comment on above: Result Comment: Spec imens with hCG levels near the threshold of the test (25 mIU/mL) may give a negative or indeterminate result. In such cases, another test should be performed with a new specimen in 48-72 hours. If early is suspected clinically in this setting, correlation with quantitative serum b-hCG level is suggested. [facility] has confirmed the use of plasma for this test. This has not been cleared or approved by the U.S. Food and Drug Administration. The FDA has determined that such clearance is not necessary. Performed By: #### C DP, CP, HCG #### [facility] [address] [place] [address] Title Supervisor: Danis Burris MD XR HIP RIGHT (2-3 [...] Carol Cohen DO 06/14/25 Final result Normal [facility] XR Hip - right 2 Viewson 1. No fracture of the visualized pelvis or right hip is seen. 2. Degenerative joint space narrowing is starting to develop. 3. There is subchondral cystic change, sclerosis and proliferative arthritic change predominantly off the acetabulum suggesting some early osteoarthritis. [facility] CONSOLIDATED EXAM: XR HIP RIGHT (2-3 VIEWS). [...] arthritic proliferative changes. Soft tissues are satisfactory. [facility]IS CONSOLIDATED Carol Cohen DO - 06/14/2025 [...] off the acetabulum suggesting some early osteoarthritis. [facility] Radiology Study observation (narrative) [facility] XR Hip - right 2 ViewsOrdere d By: Carol Cohen on 06-14-2025 [employer] Work Phone: CNOVon 11-11-2024 CNOV Office Visit (OTMBHT ) AURORA MONTAGUE ([id number]) 1975 F Date Time Provider Department 11/11/24 11:30 AM JUAN MANUEL YU During your visit today, we recorded the following information about you: Juan Manuel Yu PA 11/11/2024 12:24 PM Signed Juan Manuel Yu PA-C, [facility] Orthopaedic Surgery at [place] [address] Office: [phone] Patient info: Aurora Montague ([id number]) Service date: 11/11/2024 Referred by: Bhavana Mckay [address] [place] [address] If Consult requested for an opinion regarding the evaluation and treatment of the above. My final impression and recommendations will be communicated back to the requesting physician by way of the shared medical record or letter via US mail. PCP: MD Nelson Chief Complaint: Left shoulder pain. Patient presents [...] 6 AM (more content not included)... Normal [facility] MR Brain WO and W contrast [...] typical imaging appearance for a demyelinating process. [employer] Transcribe Date/Time: Nov 11 2024 2:54P Dictated by : NATALY ROBLERO DO This examination was interpreted and the report reviewed and electronically signed by: NATALY ROBLERO DO on Nov 11 2024 3:02PM [facility] DIVISION OF RADIOLOGY * * *Final Report* * * DATE OF EXAM: Nov 11 2024 2:45PM [facility] 0295 - MRI BRAIN WO/W IVCON / [...] imaged at C5. DIVISION OF RADIOLOGY Provider, [facility] - 11/11/2024 * * *Final Report* * [...] typical imaging appearance for a demyelinating process. [employer]: [employer] Transcribe Date/Time: Nov 11 2024 2:54P Dictated by : NATALY ROBLERO DO This examination was interpreted and the report reviewed and electronically signed by: NATALY ROBLERO DO on Nov 11 2024 3:02PM EST [facility] Radiology Study observation (narrative) [facility] MR Brain WO and W contrast I VOrdered By: Ccf Provider on 11-11-2024 [facility] MRI BRAIN WO/W IVCONon 11-11 MRI BRAIN WO/W IVCON * * *Final Report* * * DATE OF EXAM: Nov 11 2024 2:45PM [facility] 0295 - MRI BRAIN WO/W IVCON / [...] typical imaging appearance for a demyelinating process. [employer] Transcribe Date/Time: Nov 11 2024 2:54P Dictated by : NATALY ROBLERO DO This examination was interpreted and the report reviewed and electronically signed by: NATALY ROBLERO DO on Nov 11 2024 3:02PM EST [id number] Normal [facility] CNOVon 10-28-2024 CNOV Office Visit (ALFONZO ) AURORA MONTAGUE ([id number]) 1975 F Date Time Provider Department 10/28/24 2:00 PM BHAVANA MCKAY During your visit today, we recorded the following information about you: Temperature Pulse Blood pressure Weight 98.4 degrees 78/minute 122/75 97.5 kg Height 1.702 m Bhavana Mckay MD 10/28/2024 7:55 PM Signed [facility] New Patient Evaluation Consulting Provider: Rakesh Thompson [address] [address] [facility] [address] The patient presents with a chief complaint [...] or assisted with the encounter were: Aurora Ji (friend) Bhavana Mckay MD Chief Complaint/Issues: Aurora Montague is a 49 year old female seen in the [facility] for: Frequent falls Vision [...] hyperglycemic and was told that by her CATCH BASIN CLEANER ([place]) at her PCP's nurse. She is afraid of that as she has a family hx of diabetes, runs strong on her mother's side. She has a strong family hx of fibromyalgia and one aunt has and MD. 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 (more content not included)... Normal [facility] XR SHLDR >/=3V AP/ANDREA AP/OTH R [...] other significant abnormality. --- IMPRESSION: Normal study. [employer]: [employer] Transcribe Date/Time: Oct 28 2024 5:55P Dictated by : CLIFF GOTTI MD This examination was interpreted and the report reviewed and electronically signed by: CLIFF GOTTI MD on Oct 28 2024 5:56PM EST [id number] N Normal [facility] XR Shoulder - left 3 Viewson 10-28-2024 IMPRESSION: Normal study. [employer]: [employer] Transcribe Date/Time: Oct 28 2024 5:55P Dictated by : CLIFF GOTTI MD This examination was interpreted and the report reviewed and electronically signed by: CLIFF GOTTI MD on Oct 28 2024 5:56PM EST DIVISION OF RADIOLOGY * * *Final Report* * * DATE OF EXAM: Oct 28 2024 3:36PM M2X 5252 - XR SHLDR >/=3V AP/ANDREA AP/OTHR LT / PROCEDURE REASON: Left shoulder pain, unspecified chronicity * * * * Physician Interpretation * * * * HISTORY: Left shoulder pain, unspecified chronicity . TECHNIQUE: XR SHLDR >/=3V AP/ANDERA AP/OTHR LT Laterality: LEFT Number of different views (projections): 3 COMPARISON: None available. RESULT: Incomplete evaluation of the spinal fusion hardware. No acute fracture or dislocation. Acromioclavicular and glenohumeral joints are unremarkable. Acromiohumeral interval is preserved. No soft tissue swelling. There is no evidence of acute process in the included chest. No other significant abnormality. --- DIVISION OF RADIOLOGY Provider, [facility] - 10/28/2024 * * *Final Report* * [...] significant abnormality. --- IMPRESSION IMPRESSION: Normal study. [employer]: [employer] Transcribe Date/Time: Oct 28 2024 5:55P Dictated by : CLFIF GOTTI MD This examination was interpreted and the report reviewed and electronically signed by: CLIFF GOTTI MD on Oct 28 2024 5:56PM EST [facility] Radiology Study observation (narrative) [facility] XR Shoulder - left 3 ViewsOr dered By: Ccf Provider on 10-28-2024 [facility] IGP,APTIMA HPV,AGE GDLNon AGE GDLN ACOG TESTING Note . [facility] Comment on above: TESTS RESULT FLAG UN ITS REF RANGE LAB Clinician Provided Cytology Information Source.............Vagina No. of containers..01 ThinPrep Vial Age Algo ACOG Adrianna... FLAG LEGEND: L-Low Normal,H-High Normal,LL-Alert Low,HH-Alert High <-Panic Low,>-Panic High,A-Abnormal,AA-Critical Abnormal Performed at: 01 =[address] [address] Amanda Vidal MD, HPV APTIMA Negative Negative [facility] e Comment on above: This nucleic acid am plification test detects fourteen high- risk HPV types (16,18,31,33,35,39,45,51,52,56,58,59,66,68) without differentiation. Performed at: =[address] [id number] Title Supervisor: Amanda Vidal MD, Phone: [phone] Performed at: [address] [id number] Title Supervisor: Amanda Vidal MD, Phone: [phone] IGP, APTIMA HPV, RFX 16/18,45 Note . [facility] Comment on above: TESTS RESULT FLAG UN ITS REF RANGE LAB DIAGNOSIS: 02 NEGATIVE FOR INTRAEPITHELIAL LESION OR MALIGNANCY. Specimen adequacy: 02 Satisfactory for evaluation. Performed by: 02 Aurora Doe, Beautician Apprentice (ASCP) . 02 Note: Note 02 The [...] <-Panic Low,>-Panic High,A-Abnormal,AA-Critical Abnormal Performed at: [address] [address] Amanda Vidal MD, SPATULA-ALONE VAG[facility] Healthcar e ALL CBC WITH AUTO DIFFon BASOPHILS ABSOLUTE AUTO 0 [facility] Basophils/100 WBC (Bld) 0.3 % 0.2 - 2.0 % [facility] Eosinophils/100 WBC (Bld) 1.1 % 0.9 - [...] [facility] TBH EO # 0.1 [facility] Healthcar e TBH PLT 234 [facility] Healthcar e TB RBC 4.18 Low [facility] Healthcar e TB WBC 7.5 [facility] Healthcar e CNPNon 10-03-2024 CNPN Telephone (LOORRM) AURORA MONTAGUE ([id number]) 1975 F Date Time Provider Department 10/03/24 [...] Status:Closed by DEYA STAPLETON on 10/03/24 Normal [facility] Urinalysis macro (dipstick) panel (U)on 09-28-2024 Bilirubin, UA Negative Negative - 4(70) +++ mg/dL [facility] Blood, UA Positive Negative - 50 Raj/mcL [facility] Comment on above: trace-intact Clarity, UA Clear [facility] Healthca re Color, UA Yellow [facility] Glucose, UA Negative Negative - 1999(110) ++++ mg/dL [facility] Interpretation and review of laboratory results Abnormal [facility] Ketones, UA Negative Negative - 160(16) ++++ mg/dL [facility] Leukocytes, UA Negative Negative - 500+++ Alex/mcL [facility] Nitrite, UA Negative Negative - Positive [facility] pH, UA 6.5 5 - 9 [facility] Protein, UA Negative Negative - 1999(20) ++++ mg/dL [facility] Spec Grav, UA 1.03 1 - 1.03 [facility] Urobilinogen, UA 1.0 0.2 - 12 mg/dL [facility] 09-06-2024 CNOV Office Visit (SPMIND ) AURORA MONTAGUE ([id number]) 1975 F Date Time Provider Department 09/06/24 [...] (100mg qAM), Klonopin (1mg BID) -Previously tried: [place], robaxin, diclofenac 75mg BID ,medrol dose [...] and Invizia plate with Dr. Harvey at [facility] Office visit 5/10/24: Here today for evaluation of her low [...] with coughing/sneezing (more content not included)... Normal [facility] CNTHERAPYon 07-27-2024 CNTHERAPY OT/PT/Speech Visit (LOPTRM) AURORA MONTAGUE ([id number]) 1975 F Date Time Provider Department 07/27/24 3:45 PM NELLA DUPONT Date Time Provider Department Center 07/27/2024 3:45 PM [id number] DUPONT Sunitha Tyson Reason for Visit: PT Discharge [752] [...] 1 tablet by mouth every afternoon. Normal [facility] CNTHERAPYon 07-08-2024 CNTHERAPY OT/PT/Speech Visit (LOPTRM) AURORA MONTAGUE ([id number]) 1975 F Date Time Provider Department 07/08/24 1:45 PM ANGELIC POPE Date Time Provider Department Center 07/08/2024 1:45 PM [id number] POPE Reason for Visit: Physical Therapy [503] [...] Take 1 tablet by mouth every afternoon. Business Information Manager: Addendum Therapy (PT/OT/Speech/Resp) ID: [id number] 07/08/2024 2:36 PM Author: ANGELIC POPE Signed by ANGELIC POPE PT on 07/08/2024 at 2:36 PM * * * This document replaces document [id number] * * * Document text: Program_ID:[id number] Access Code: [email or web address] URL: [email or web address] Date: 07-08-2024 Prepared By: Nella Dupont Program [...] 3 sets - 10 reps ----- Normal [facility] THERAPY NTon 07-08-2024 THERAPY NT HNO ID: [id number] Author: ANGELIC POPE PT Service: ? Author Type: Physical Therapist Type: Therapy (PT/OT/Speech/Resp) Filed: 07/08/2024 14:36 Note Text: Program_ID:[id number] Access Code: [email or web address] URL: [email or web address] Date: 07-08-2024 Prepared By: Nella Dupont Program [...] - 3 sets - 10 reps Normal [facility] SURGICAL PATHOLOGYOrdered By : Dalila Logan on 04-28-2024 Case Report Surgical Pathology Report Case: [id number] Authorizing Provider: Ashley Shah MD Collected: 04/26/2024 11:12 AM Ordering Location: Ambulatory Surgery Received: 04/26/2024 11:32 PM Pathologist: Dalila Logan MD Specimens: A) - Small Bowel, Duodenum, Biopsy, r/o celiac B) - Stomach, Antrum, Biopsy, r/o hpylori C) - Stomach, Biopsy, body r/o hpylori D) - Colon, Biopsy, random colon r/o microscopic colitis E) - Colon, Sigmoid, Polyp, polyp x1 [facility] Work Phone: Diagnosis Comment x5rpzRVhDJFloSJcNLDu N StjkoDuBKHwfBJrG3Mcwh oxKQilLO8rOC5zfUvzzRA dxYVrGNBtOnOsx1ovp235 zEVxp4rgGXIOkfmlsGw8z PykK30tz3C7TchpE28gqB TiBGE6FLXcOACrcLVrFJK aUCF7FOSekJEuA6ehAEGm GE1zheuiFZjkFBawZQLfg AS4WJDbfRAmC3TqKLDcTW ouBPPwhdp6UlGtVb6jdEB yeTcyMFxwYXJkXHBsYWlu IGSwYlUuxDPdSN02wWKnx XciNYS6CDWapEX8TQlePU HBQGAyJ4Jgd33oPSaaieC zQTbksYogAHFzo08pyWOz dCBFLiBccGFyfQ== [facility] Work Phone: FINAL DIAGNOSIS r0mleWHvMJKrlFSiXIZa N XgouwMiBHEgkNJqE0Mfce aoHWewNY2mUR8agNdwpGQ hySKeUAMuOlQsg7sjm452 yNKwq2yaURBBhadseTd8g QryS12dj0N5ZrxeZ35sjM OrFDY8IVRrOSCrvMVuVBK iSVV8GDAsuNQpE1hjBZTy CO0xuagoKBwfELzxNFIua VF3APDrwQZiO5YoGGRpFK htIORbvhj0TlPlDi2shAQ yeTcyMFxwYXJkXHBsYWlu XGZzMjBccGFyIEEuICBTb SGejSRuzeSgk8IxkjZtSC T6k5XwzzCeCAVooJ5xt0m kuLFxSR7PuB2eRC2xvWZu cNXqj5Shd7r9pHPxuiHki DxrpBYsU9LmpMLqEZRyw6 ijV1hkKVEtjj4ukDYgjUT 5XHBhciAtTmVnYXRpdmUg Pd5hTOQ8v3Jvxjj8rNClS K7oABMgiTqaYmCizVIgXB WpFQDrtyidJZEfHj5aLKX 4y01mU6maYUWqpXN1fQnn HzjslPW7OXWkvcTeR4Swt HJpYyBhbnRyYWwgbXVjb3 ScQJwqnUsvqkUpI2YovsQ bZ7YdkANmbAO3kQjmvPEb EI6LyjVzrJE3v34ilyPue 9bbB3pyDEV8sQAkzyLpKE 2hFMjvqUvzd6ZoR4UyekM vcmdhbmlzbXMgXHBhclxw KOVcLn5qKPB5h62sD9nsX NFzSMjqPEYay0GrfRgvVQ QkFHjct9BcpSQjf6q6nyB vUqCrtOOwa0Lpb3d2lRHo tmTmgQjghDAsC3OvhGSwN NGwf2sbB6xcVRTxhj9lwL QrsHU8UBXzgvHvVc6qyFa ifE9gu7BzmF3pd5jmQwGg otowKP0wGNZyWhXBLEadD 75vRQC4AXEpp5NgHE9fg1 1zIFxwYXJccGFyIEQuICB Ne8gxukrutdHiSO5fMMVo lV2lx9fjrQOvQO7Wj0kkf asrJJ92G85nHCW5bFIfDQ 1rdJUkk0OvpjFke5rpOMG gfzPnOfUyIHWroiTcXg3i CVWnlLv0jUOaKMgsGK27y I9sEKRsmDBorT8iqMHhjA I6kS1qJGOfDVDvuUHfaTF zaWFccGFyXHBhciBFLiAg B03in40hUGZiT67yeUUcX NPcwTieNYL2h462EHNqle NoQ57tw26sOhIdsONmp7V bz8q8lJUyOAvbfe0crAUl R21tfTnxAIRwHK2dZ1U7c XZlIGZvciBkeXNwbGFzaW LiHKJbJJZkr70xZG28BXy wYXJ9 [facility] Work Phone: Gross Description i8jxpUXeNZRksEUfVOJs N PxcfxXbZGRdhIXqF4Wpgg ctWQwaQS7zQJ1stVvvsWW mqZAaNZWgHaIwb1kcn766 rQLxm3rmBDBHuwfzmGo8z JgqR61ds9D6ImeoJ06zhH OxXWU1YTItBMXdeLEdJDU aGBZ3KHDsuYIqY3roQRDl LP5gahjxAPbmXGsyHVTgh CT7ZFKrsVYcM7RwQCNeXV vwMDMhagg3RyEaHx7jkPZ joXdiCGcyQkjjqXnjt6Sf dCBcXGlkIDUxMDAwIFxcb uezETb6ERIfAEytlBQiSG 1sbUpvDiwrrQtbj5FlrJA cXGlkIDUxMDAyIFxcZGIg J5JHSDTsHiS0UTN0VKLlV Fs5EOh2SD5CZvWrYPO5DD OhJxnnIsCdDQq8COliJF9 BWJCrBEN1QiF6NjR7SRS6 XHO5RYxrkWIwUBhcg5WwW pUhGQTiEXabkfW1CUUnhy JioDwmwL2gSqDeXtNCRtW IfSNdbPMFc7zrpDyvZMZp XJHpcK0mSUJvj4MzhNnuJ XJccGFyZFxzYjMwXGVwaW WOy5NiSPsjJYPuABYurWP Wz0PsJCkfiGEikhmafpCe RMTkI2WjrrIvLCzmCOUyz a0rvCoiXGVgYGN9u41ovJ plW3MkBF2bNAZuhzntc17 ndDV3qULbzYNnWNsomeQm DCZkzqrheN5jKG62JRifV O9jRCafMR6gWQHjVqRBf8 JdoQx3DZA3Si7qaHAbMKQ opiFimoElQ7Xkq6M0cAIm b3lsdEjcp1OjoJIsXR4rf KIgd9gaWZBehQRkPER2BG xcaWQgNTEwMDIgXFxkYiB CMdCfKhW6MfG2LAq3BhNm DOm6MXpyB1UBKVBuHUK6C hD7FwTaAeZ2YTa4JJRMZe 8aZNThNFelMoG7KjEaYHB 6ZSZjVNg7TFIzYKhvleTl URykQeigRCzqJ65jiJEuJ FxzYjEwNVxlcGljWHNiMT I1PIRlKwRmBv1cX7ZqcKG rxTcfMG28vdSdXCIVcU3z a8zchJHtVWUdquUqi8OkE PlyjOjjQZAnDtTzk2TiGW xlcGljWHNhMzBccGxhaW5 cZnMyMCBSZWNlaXZlZCBp yuYbd9LfEXgezdRloxWaf HmpSJEzVLOtbjJcZoO2PT 9cVNPpIwEbcNxtg8UdHCN aF4NsB1W1vH0bAUXgNUMc VCT1MMVoOgF1KFAgEiQfn B4pJX49QJzbaFYxtXHkpS D9NOAovB2nk94gASGve2N obQPaImehJHBfU5AiM8Mq lvG3PUYuiscwQycikTixl 2VjdCBcXGlkIDUxMDAyIF quDPOdS2WMYAXaYcJ3FCM 1CWIpTZr9XIq5XP3JXaWa KQS0NSOmMncxXDBmQBq3U LxqCV1WORUeBJZ7YpX5Ib DwGBI4YIP5IFmxgYIqCKh hl2SlOlWfDAKnFXxcmpE6 RQQkarJxf1NrSTOxXEItR 1hzYjEwNVxmczIyIEMuIF A8w91iP3zmUOWkz2JceZx wYXJccGFyZFxzYjMwXGVw aACMr7DgTMbmIZAeAJRfr ZHGq6LlPQfbxXHeqsjaem JsMRXrH0AnptUpVMcuURO rhp5msJdsTTRwZEJ4r11o uKjcR4LaGN8iCTSqljglm 06wsNS5eWEofFGmLBvcpo HqXKUmlczbqT3hXR66PJf yKW7uXXwnGP3bKBEfBoRY r2BcuQe5XYK5Hb1wxGJcN CRxieFwzaAtX1Pwf8Y2bE Qkc8gjuAonu8JpdHPnQK2 yoTSuv0pnXWBbwZQsCGO6 IFxcaWQgNTEwMDIgXFxkY sBSXwLuPuL2XlV6IDx7Mr MoWHd4FRhnO6COSAPeXAF 1HpW4IDV7FvG5AKh8EBUE Fg1uMDXjPUxwTtK9GnYpP KX1SAWvWVy4EGTfGDajvb FkQZoaJbisSOwnT65jpWD yZFxzYjEwNVxlcGljWHNi WII8DDJsPwEaNN0xQ95kf 26hTBYbj7IqqEmkGSEvzB LpEAbcOxZuQZQmrBWJa9W zSHhrSWNzVLAbqHHJw6Gy MFxwbGFpblxmczIwIFJlY 4UmirJfPYxnSTFcnr9etY zaTVBwILXgaLv8tNSyHOF epXXtNUOfp0VlwQEtEAZr e2U2RIAfy4S0WZTaJ6wwG UqoqGatXmA8mtAoUiQigG ZoJqBhtRXcVqYlS45uQDO aaUGlfGcpi4YioGq7pTMd QXjtDU9jHOIqZRXrISV7R V11CPPzbCFbGPP3KM2hwT zcFEY0LTwiNCJnW7UyI8X oNObhVMV6NPPgZzEzMUCz BH1AAjMkQQF2QkakXPM8N gV2RXx3VOYSXhBuKyZjHB SzEra1CKfoEZg0XAj1DIy XJhSvAeF0QdEuIlYmMHP3 NDUxNSBcXHQgMiBcXHNzI QIlBKxkkEMuUC1yyDvzAV IdNKMhOIM5TRIqdKSYh4B rESNwWbQrYzFXKtGYr1ue rzkbL3hldD6hPAuvOB2ib LSfrSLtDMBauzWxm7UuEV xlcGljWHNiMzBccGxhaW5 cZnMyMCBSZWNlaXZlZCBp fbBpf6PaNLrzfxFuxgCkd bZwsZikG6Hkl7BwqWVnUM Tlj9B9XTZjl9O6LLAlWYG cgMStziieZX3hIWjfOM9l IGbdVV6wYKSsQsVPw3Zze Mb9JST2Yy0ukNIbVSEben DbbaSvZ7Mxb4G1iISxNGe lGISjrQKnANnvEXPyD5Sx SnVuZSAyNiwgMjAyNCAxO jDbTZNIKQGfozBOgj0iqo HmjJQbbF1olSlwwrRoTDJ zz1VdGLGkZYNvO3bxlwYy AD6tGWQknT6kNxjmMHWiG CBFdWNsaWQgQXZlLiwgQ2 prdmUhRG9rUBRFVNC3LGS 7IAspPOXmc1RaWDnymZkg CTJcNhP5TXFxjTWdXWN0M B7ksKhcNCQxY7YcT7Kcdq H0TEVglg8= [facility] Work Phone: Performing Lab l9aqwUSkDHQwqCJfKaMe M MXhFDOaz5vzQYNnhLTdQe EwMzNcZnRuYmpcdWMxXGR yDfFlh0saf965gDGmg3ql CNBuGvG6wDPhWUBzwIKkD 111NQFoIImai6lll3ToUI XakCEou7U0AOUBpjvlrZn 1fEdnQ77vo7M6HlgsJ5qg DYGxHXElZ9WyBS7jYAZvH ek5TEU5OAT6DHQyTGNdL3 PxAB6sVUUemMMeJMw0m5k znWceVQRuGTX3m8ksFEsd eaCiKK7rdz9osLb2f1jwg zEgRGVmYXVsdCBQYXJhZ3 XroLxnPu9zxQb7vDagEbz eJXN3Jdj3BU4jbx82vtl2 nQwpUSAmupneLeV0JRfiC EUhkwjlUNc0VUagEGEvyE V6RAHqbHFyH2MnEMppHH1 abze9PXC4HXtaIQKzAqO0 NDBcaGVhZGVyeTcyMFxmb 668VOL8IsHlIX1hE8Sxk3 H3lR1kySGkEPJnoNDrTmS pADAegk5qwCVhYBgar7Mz LZQ1raU3wDTltFWdNRDuP M42Cbtud5MgMvxfy3LoW8 4mdVY3UAvcm7whWF0mIfG 6tqSaDVvnx1muwQ3kNdI7 IMeoCQ5dYI8gJAAnxP3ti mxjXHBnYnJkcmhlYWRccG izaeZzHy6zaMzaVTO2EUs gX0imyU1oZpW8PCboJ8sn wY8kEVd7EVyzmDN2ZQUbk D1pJG8vbzapr8iuSQywRU tcRIPmqlM1jkTkFZHwxYV oI7RcsC2rYYGoHY0piesb v4udPOF9MMebJEGmICQ5K gZgNCGhl6Oorfq6DpEck3 KfaXBaLYjeW03be654CHM qglZxW6uzcYRsioaciIQx wzmtUGeqcxC9FNXvGQErX WluXGYxXGZzMjBcbGFuZz EwMzNcaGljaFxmMVxkYmN qFPYeEWexL9jnQbBuHtVp ZOQJwSElvq1whNvbCKsot ZEttPCtxOE1eE6tBMJvwh Pbxg0eKUFdnGEIvUV4JNd brxLwB3gbcxgdVZQ4OEGo PAX2B6efEDVCoxShUDAnZ BWmzALeXWGSMIE0DXJ0UO DhANYEVLZsNMR7NOF5PAU wOTRccGFyXHBhclxwYXJk XHBsYWluXGYwXGZzMjRcc ZnrvE0zBlWxEtRtQOiuWE 8vBUYkN4bhkCDnTQCbOQA tM7gdBrMllK6lmNlyNYjw ZjJcZnMyMFxsdHJjaCBMY SOxzmL0d7A6SEyozPOzla xmMVxmczIwXGxhbmcxMDM wBXpxJ0tyTkHkDNWbiCft XVmae5FaCNYgUPQbDfQkZ EidQBK5l1K1SBaelBZnay KIGlHCPR8yqVRpyorlUH8 ELlxwbGFpblxmMVxmczIy SKggdlbgBIEvSHmwK7guR yPyUONitGcdPVjya6WsZD YxXGZzMjJccGFyfQ== [facility] Work Phone: [facility] Work Phone: EGD Study observation Narrat maximo 04-26-2024 [facility] Gastroenterology Gastrointestinal Endoscopy Patient Name: Aurora Montague Procedure Date: 04/26/2024 11:07 AM Date of : 1975 Admit Type: Outpatient Age: 49 Room: [place] [address] Gender: Female Note Status: Finalized Attending MD: Ashley Shah MD, [id number] Procedure: Upper GI endoscopy Indications: Dyspepsia, Heartburn, [...] verified by the physician, the nurse, the waistband setter and the armorer technician in the procedure room. Mental Status [...] Normal hypopharynx. (more content not included)... [employer] [facility] Radiology Study observation (narrative) [facility] Flexible sigmoidoscopy study on 04-26-2024 [facility] Gastroenterology Gastrointestinal Endoscopy Patient Name: Aurora Montague Procedure Date: 04/26/2024 11:20 AM Date of : 1975 Admit Type: Outpatient Age: 49 Room: [facility] Gender: Female Note Status: Finalized Attending MD: Ashley Shah MD, [id number] Procedure: Colonoscopy Indications: Lower abdominal pain, Rectal [...] verified by the physician, the nurse, the waistband setter and the armorer technician in the procedure room. Mental Status [...] bowel preparation was evaluated using the BBPS (Kempner Bowel Preparation Scale) with scores of: Right [...] MAC anesthesia (more content not included)... [employer] [facility] Radiology Study observation (narrative) [facility] CT Abdomen and Pelvis W cont rast [...] any questions regarding this interpretation, please call [phone]. If you are unable to reach us at the number above, please feel free to contact [facility] eRadiology at [phone]. DIVISION OF RADIOLOGY * * *Final Report* * * DATE OF EXAM: Mar 21 2024 8:39AM [facility] 0530 - CT ABD/PEL W IVCON [...] No additional findings. DIVISION OF RADIOLOGY Provider, [facility] - 03/21/2024 * * *Final Report* * * DATE OF EXAM: Mar 21 2024 8:39AM [facility] 0530 - CT ABD/PEL W IVCON [...] any questions regarding this interpretation, please call [phone]. If you are unable to reach us at the number above, please feel free to contact [facility] eRadiology at [phone]. [facility] Radiology Study observation (narrative) [facility] CT Abdomen and Pelvis W cont rast IVOrdered By: Ccf Provider on 03-21-2024 [facility] CBC W Auto Differential pane l (Bld)on 02-29-2024 Basophils (Bld) [#/Vol] 0.03 10*3/uL [facility] Basophils/100 WBC (Bld) 0.4 % [facility] Differential cell count method Nom (Bld) Auto [facility] Eosinophils (Bld) [#/Vol] 0.06 10*3/uL [facility] Eosinophils/100 WBC (Bld) 0.8 % [facility] Erythrocyte distribution width (RBC) [Ratio] 12.9 % 11.5 - 15.0 % [facility] Hematocrit (Bld) [Volume fraction] 42.9 % 36.0 - 46.0 % [facility] Hemoglobin (Bld) [Mass/Vol] 14.6 g/dL 11.5 - 15.5 g/dL [facility] Immature granulocytes (Bld) [#/Vol] [facility] Immature granulocytes/100 WBC (Bld) 0.1 % [facility] Lymphocytes (Bld) [#/Vol] 2.44 10*3/uL [facility] Lymphocytes/100 WBC (Bld) 34.0 % [facility] MCH (RBC) [Entitic mass] 32.4 pg 26.0 - 34.0 pg [facility] MCHC (RBC) [Mass/Vol] 34.0 g/dL 30.5 - 36.0 g/dL [facility] MCV (RBC) [Entitic vol] 95.1 fL 80.0 - 100.0 fL [facility] Monocytes (Bld) [#/Vol] 0.50 10*3/uL [facility] Monocytes/100 WBC (Bld) 7.0 % [facility] Neutrophils (Bld) [#/Vol] 4.13 10*3/uL [facility] Neutrophils/100 WBC (Bld) 57.7 % [facility] Nucleated RBC (Bld) [#/Vol] [facility] Nucleated RBC/100 WBC (Bld) [Ratio] 0.0 % /100 WBC [facility] Platelet mean volume (Bld) [Entitic vol] 10.8 fL 9.0 - 12.7 fL [facility] Platelets (Bld) [#/Vol] 253 10*3/uL [facility] RBC (Bld) [#/Vol] 4.51 10*6/uL 3.90 - 5.2 0 m/uL [facility] WBC (Bld) [#/Vol] 7.17 10*3/uL [facility] Comprehensive metabolic 2000 panelon 02-29-2024 Albumin [Mass/Vol] 4.5 g/dL 3.9 - 4.9 g/dL [facility] ALP [Catalytic activity/Vol] 75 U/L 34 - 123 U/L [facility] ALT [Catalytic activity/Vol] 17 U/L 7 - 38 U/L [facility] Anion gap [Moles/Vol] 11 mmol/L 9 - 18 mmol/L [facility] AST [Catalytic activity/Vol] 17 U/L 13 - 35 U/L [facility] Bilirubin [Mass/Vol] 0.5 mg/dL 0.2 - 1 .3 mg/dL [facility] Calcium [Mass/Vol] 9.3 mg/dL 8.5 - 10. 2 mg/dL [facility] Chloride [Moles/Vol] 104 mmol/L 97 - 10 5 mmol/L [facility] CO2 [Moles/Vol] 24 mmol/L 22 - 30 mmol/L [facility] Creatinine [Mass/Vol] 1.03 mg/dL High 0.58 - 0.96 mg/dL [facility] GFR/1.73 sq M.predicted among non-blacks MDRD (S/P/Bld) [Vol rate/Area] 68 mL/min/{1.73_m2} - PINF [facility] Comment on above: Estimated Glomerular Filtration Rate [...] [Mass/Vol] 91 mg/dL 74 - 99 mg/dL [facility] Comment on above: The [place] Diabete s Association (ADA) provides guidance for [...] Standards of Medical Care in Diabetes 2016, [place] Diabetes Association. Diabetes Care. 2016.39(Suppl 1). Interpretation and review of laboratory results Abnormal [facility] Potassium [Moles/Vol] 4.3 mmol/L 3.7 - 5.1 mmol/L [facility] Protein [Mass/Vol] 7.2 g/dL 6.3 - 8.0 g/dL [facility] Sodium [Moles/Vol] 139 mmol/L 136 - 144 mmol/L [facility] Urea nitrogen [Mass/Vol] 11 mg/dL 7 - 21 mg/dL [facility] XR Lumbar spine AP and Later panda 02-19-2024 IMPRESSION: Mild to moderate lumbar degenerative changes. [employer]: DAMON Transcribe Date/Time: Feb 19 2024 4:22P Dictated by : SARAH SEBASTIAN MD This examination was interpreted and the report reviewed and electronically signed by: VEE ALEXANDER MD on Feb 19 2024 6:07PM [facility] DIVISION OF RADIOLOGY * * *Final Report* [...] IMPRESSION: Mild to moderate lumbar degenerative changes. [employer]: DAMON Transcribe Date/Time: Feb 19 2024 4:22P Dictated by : SARAH SEBASTIAN MD This examination was interpreted and the report reviewed and electronically signed by: VEE ALEXANDER MD on Feb 19 2024 6:07PM EST [facility] Radiology Study observation (narrative) [facility] XR Lumbar spine AP and Later alOrdered By: Ccf Provider on 02-19-2024 [facility] MR Cervical spine WO contras ton 04-21-2023 IMPRESSION: Cervical spondylosis and postoperative changes. Mild spinal canal stenosis at C3-C4. Varying degrees of up to moderate to severe foraminal stenoses, most notable at C5-C6 Anatomic Variant: None. Assume 7 cervical vertebrae with counting from the craniocervical junction. [employer]: DAMON Transcribe Date/Time: Apr 21 2023 7:54A Dictated by : NATALY ROBLERO DO This examination was interpreted and the report reviewed and electronically signed by: NATALY ROBLERO DO on Apr 21 2023 8:02AM [facility] DIVISION OF RADIOLOGY * * *Final Report* * * DATE OF EXAM: Apr 20 2023 4:35PM [facility] 0297 - MRI CERVICAL SPINE WO [...] foramina are patent. DIVISION OF RADIOLOGY Provider, [facility] - 04/21/2023 * * *Final Report* * * DATE OF EXAM: Apr 20 2023 4:35PM [facility] 0297 - MRI CERVICAL SPINE WO [...] vertebrae with counting from the craniocervical junction. [employer] Transcribe Date/Time: Apr 21 2023 7:54A Dictated by : NATALY ROBLERO DO This examination was interpreted and the report reviewed and electronically signed by: NATALY ROBLERO DO on Apr 21 2023 8:02AM EST [facility] MR Cervical spine WO contras tOrdered By: Ccf Provider on 04-21-2023 [facility] MR Cervical spine WO contras ton 04-20-2023 Radiology Study observation (narrative) [facility] EMG(NEURO/NI)on 04-03-[address] [facility] [address] Cervical spine WO contras ton 03-25-2023 IMPRESSION: Multilevel degenerative changes of the cervical spine, most pronounced at C5-C6 and moderate bilateral neural foraminal narrowing. Anatomic Variant: None. Assume 7 cervical vertebrae with counting from the craniocervical junction. [employer]: [employer]ON Transcribe Date/Time: Mar 25 2023 4:30P Dictated by : RORO SHER MD This examination was interpreted and the report reviewed and electronically signed by: RORO SHER MD on Mar 25 2023 4:37PM [facility] DIVISION OF RADIOLOGY * * *Final Report* * * DATE OF EXAM: Mar 25 2023 3:37PM [facility] 0505 - CT CERVICAL SPINE WO [...] and fusion extending from C4 to C7. Se[employer] Pant[employer]ose (topogram) images: No significant findings. Alignment: Alignment [...] patent. DIVISION OF RADIOLOGY Provider, Bobbi Constantino [facility] - 03/25/2023 * * *Final Report* * * DATE OF EXAM: Mar 25 2023 3:37PM [facility] 0505 - CT CERVICAL SPINE WO [...] and fusion extending from C4 to C7. [employer]ose (topogram) images: No significant findings. Alignment: Alignment [...] vertebrae with counting from the craniocervical junction. [employer]: DAMON Transcribe Date/Time: Mar 25 2023 4:30P Dictated by : RORO SHER MD This examination was interpreted and the report reviewed and electronically signed by: RORO SHER MD on Mar 25 2023 4:37PM EST [facility] Radiology Study observation (narrative) [facility] CT Cervical spine WO contras tOrdered By: Ccf Provider on 03-25-[address] [facility] [address] FACIAL BONES W CONon 05-0 CT FACIAL BONES W CON EXAMINATION: CT FACIAL BONES W CON HISTORY: Toothache left jaw pain and facial pain COMPARISON: CT from [facility] 11/05/2016 of the cervical spine TECHNIQUE: 100 [...] substantially changed as compared to study from [facility] on 11/05/2016 indicating this is a benign reactive lymph node. 5. No evidence for sinusitis. 6. No evidence for facial bone fracture. Electronically authenticated by: KELLEE CANO Date: 2023-03-08 20:44 Normal [facility] CBC AUTO DIFFon 03-02-2023 BASO # 0.0 103/ul Normal 0.0-0.1 [facility] Comment on above: Performed By: #### I NSULIN #### [facility] [address] [address] [address] Milad Garcia Basophils/100 WBC (Bld) 0.4 % Normal 0.2-2.0 [facility] Comment on above: Performed By: #### I NSULIN #### [facility] [address] [address] [address] Milad Garcia EO # 0.1 103/ul Normal 0.0-0.7 [facility] Comment on above: Performed By: #### I NSULIN #### [facility] [address] [place] [address] Dr. Milad Garcia Eosinophils/100 WBC (Bld) 1.3 % Normal 0.9-7.0 [facility] Comment on above: Performed By: #### I NSULIN #### [facility] [address] [place] [address] Dr. Milad Garcia Erythrocyte distribution width (RBC) [Ratio] 12.9 % Normal 11.0-15.0 [facility] Comment on above: Performed By: #### I NSULIN #### [facility] [address] [place] [address] Dr. Milad Garcia Hematocrit (Bld) [Volume fraction] 40.2 % Normal 36.0-48.0 [facility] Comment on above: Performed By: #### I NSULIN #### [facility] [address] [place] [address] Dr. Milad Garcia Hemoglobin (Bld) [Mass/Vol] 13.6 g/dL Normal 12.0-16.0 [facility] Comment on above: Performed By: #### I NSULIN #### [facility] [address] [place] [address] Dr. Milad Garcia IG # 0.02 10e3/ul Normal 0.00-0.03 [facility] Comment on above: Performed By: #### I NSULIN #### [facility] [address] [place] [address] Dr. Milad Garcia IG % 0.3 % Normal 0.0-0.5 [facility] Comment on above: Performed By: #### I NSULIN #### [facility] [address] [address] [address] Milad Garcia LYMPH # 2.8 103/ul Normal 1.2-3.8 [facility] Comment on above: Performed By: #### I NSULIN #### [facility] [address] [address] [address] Milad Garcia Lymphocytes/100 WBC (Bld) 37.5 % Normal 20.5-60.0 [facility] Comment on above: Performed By: #### I NSULIN #### [facility] [address] [place] [address] Dr. Milad Garcia MANUAL DIFF REQ NO Normal [facility] Comment on above: Performed By: #### I NSULIN #### [facility] [address] [place] [address] Dr. Milad Garcia MCH (RBC) [Entitic mass] 31.6 pg Normal 26.7-34.0 [facility] Comment on above: Performed By: #### I NSULIN #### [facility] [address] [place] [address] Dr. Milad Garcia MCHC (RBC) [Mass/Vol] 33.8 g/dL Normal 29.9-35.2 [facility] Comment on above: Performed By: #### I NSULIN #### [facility] [address] [place] [address] Dr. Milad Garcia MCV (RBC) [Entitic vol] 93.3 fL Normal 81.0-99.0 [facility] Comment on above: Performed By: #### I NSULIN #### [facility] [address] [place] [address] Dr. Milad Garcia MONO # 0.6 103/ul Normal 0.3-0.8 [facility] Comment on above: Performed By: #### I NSULIN #### [facility] [address] [place] [address] Dr. Milad Garcia Monocytes/100 WBC (Bld) 8.0 % Normal 1.7-12.0 [facility] Comment on above: Performed By: #### I NSULIN #### [facility] [address] [address] [address] Milad Garcia NEUT # 3.9 103/ul Normal 1.4-6.5 [facility] Comment on above: Performed By: #### I NSULIN #### [facility] [address] [place] [address] Dr. Milad Garcia Neutrophils/100 WBC (Bld) 52.5 % Normal 43.0-75.0 [facility] Comment on above: Performed By: #### I NSULIN #### [facility] [address] [place] [address] Dr. Milad Garcia Platelet mean volume (Bld) [Entitic vol] 9.4 fL Critically low 9.5-13.5 [facility] Comment on above: Performed By: #### I NSULIN #### [facility] [address] [place] [address] Dr. Milad Garcia PLT 252 103/ul Normal 150-450 [facility] Comment on above: Performed By: #### I NSULIN #### [facility] [address] [place] [address] Dr. Milad Garcia RBC 4.31 106/ul Normal 4.20-5.40 [facility] Comment on above: Performed By: #### I NSULIN #### [facility] [address] [place] [address] Dr. Milad Garcia WBC 7.4 103/ul Normal 4.0-11.0 [facility] Comment on above: Performed By: #### I NSULIN #### [facility] [address] [place] [address] Dr. Milad Garcia INSULINon 02-02-2023 Insulin 15.5 uIU/mL Normal 2.6-24.9 [facility] Comment on above: Performed By: #### I NSULIN #### [facility] [address] [place] [address] Dr. Milad Garcia OCC BLD IMMUNO SCREENon 04-0 OCCULT BLOOD Positive Abnormal NEGATIVE [facility] Comment on above: Performed By: #### I NSULIN #### [facility] [address] [place] [address] Dr. Milad Garcia CBC AUTO DIFFon 01-31-2023 BASO # 0.0 103/ul Normal 0.0-0.1 [facility] Comment on above: Performed By: #### I NSULIN #### [facility] [address] [place] [address] Dr. Milad Garcia Basophils/100 WBC (Bld) 0.1 % Critically low 0.2-2.0 [facility] Comment on above: Performed By: #### I NSULIN #### [facility] [address] [place] [address] Dr. Milad Garcia EO # 0.0 103/ul Normal 0.0-0.7 [facility] Comment on above: Performed By: #### I NSULIN #### [facility] [address] [place] [address] Dr. Milad Garcia Eosinophils/100 WBC (Bld) 0.0 % Critically low 0.9-7.0 [facility] Comment on above: Performed By: #### I NSULIN #### [facility] [address] [place] [address] Dr. Milad Garcia Erythrocyte distribution width (RBC) [Ratio] 13.1 % Normal 11.0-15.0 [facility] Comment on above: Performed By: #### I NSULIN #### [facility] [address] [place] [address] Dr. Milad Garcia Hematocrit (Bld) [Volume fraction] 40.2 % Normal 36.0-48.0 [facility] Comment on above: Performed By: #### I NSULIN #### [facility] [address] [place] [address] Dr. Milad Garcia Hemoglobin (Bld) [Mass/Vol] 13.8 g/dL Normal 12.0-16.0 [facility] Comment on above: Performed By: #### I NSULIN #### [facility] [address] [place] [address] Dr. Milad Garcia IG # 0.07 10e3/ul Critically high 0.00-0.03 [place] Comment on above: Performed By: #### I NSULIN #### [facility] [address] [place] [address] Dr. Milad Garcia IG % 0.4 % Normal 0.0-0.5 [facility] Comment on above: Performed By: #### I NSULIN #### [facility] [address] [address] [address] Milad Garcia LYMPH # 3.0 103/ul Normal 1.2-3.8 [facility] Comment on above: Performed By: #### I NSULIN #### [facility] [address] [place] [address] Dr. Milad Garcia Lymphocytes/100 WBC (Bld) 18.7 % Critically low 20.5-60.0 [facility] Comment on above: Performed By: #### I NSULIN #### [facility] [address] [place] [address] Dr. Milad Garcia MANUAL DIFF REQ NO Normal [facility] Comment on above: Performed By: #### I NSULIN #### [facility] [address] [place] [address] Dr. Milad Garcia MCH (RBC) [Entitic mass] 31.7 pg Normal 26.7-34.0 [facility] Comment on above: Performed By: #### I NSULIN #### [facility] [address] [place] [address] Dr. Milad Garcia MCHC (RBC) [Mass/Vol] 34.3 g/dL Normal 29.9-35.2 [facility] Comment on above: Performed By: #### I NSULIN #### [facility] [address] [place] [address] Dr. Milad Garcia MCV (RBC) [Entitic vol] 92.4 fL Normal 81.0-99.0 [facility] Comment on above: Performed By: #### I NSULIN #### [facility] [address] [place] [address] Dr. Milad Garcia MONO # 1.0 103/ul Critically high 0.3-0.8 [facility] Comment on above: Performed By: #### I NSULIN #### [facility] [address] [address] [address] Milad Garcia Monocytes/100 WBC (Bld) 5.9 % Normal 1.7-12.0 [facility] Comment on above: Performed By: #### I NSULIN #### [facility] [address] [address] [address] Milad Garcia NEUT # 12.0 103/ul Critically high 1.4-6.5 [facility] Comment on above: Performed By: #### I NSULIN #### [facility] [address] [place] [address] Dr. Milad Garcia Neutrophils/100 WBC (Bld) 74.9 % Normal 43.0-75.0 [facility] Comment on above: Performed By: #### I NSULIN #### [facility] [address] [place] [address] Dr. Milad Garcia Platelet mean volume (Bld) [Entitic vol] 10.0 fL Normal 9.5-13.5 [facility] Comment on above: Performed By: #### I NSULIN #### [facility] [address] [place] [address] Dr. Milad Garcia PLT 300 103/ul Normal 150-450 [facility] Comment on above: Performed By: #### I NSULIN #### [facility] [address] [place] [address] Dr. Milad Garcia RBC 4.35 106/ul Normal 4.20-5.40 [facility] Comment on above: Performed By: #### I NSULIN #### [facility] [address] [place] [address] Dr. Milad Garcia WBC 16.0 103/ul Critically high 4.0-11.0 [facility] Comment on above: Performed By: #### I NSULIN #### [facility] [address] [place] [address] Dr. Milad Garcia FREE THYROXINE INDEX T7on FTI 1.28 Critically low 1.30-4.50 [facility] Comment on above: Performed By: #### L IPID, TSH, CMP, T7 #### [facility] [address] [address] [address] Milad Garcia T3U 32.0 % Normal 30.0-39.0 [facility] Comment on above: Performed By: #### L IPID, TSH, CMP, T7 #### [facility] [address] [address] [address] Milad Garcia T4 [Mass/Vol] 4.00 ug/dL Critically low 4.80-13.90 [place] Comment on above: Performed By: #### L IPID, TSH, CMP, T7 #### [facility] [address] [address] [address] Milad Garcia GLYCOHEMOGLOBIN A1Con 2022 ADA RECOMMENDATION SEE BELOW Normal [facility] Comment on above: Result Comment: ADA RECOMMENDED LIMIT 4.0 - 6.0 ADA THERAPEUTIC TARGET < 7.0 ACTION SUGGESTED > 7.0 Performed By: #### A 1C #### [facility] [address] [address] [address] Milad Garcia Glucose [Mass/Vol] 103 mg/dL Normal [facility] Comment on above: Performed By: #### A 1C #### [facility] [address] [address] [address] Milad Garcia HbA1c (Bld) [Mass fraction] 5.2 % Normal 4.5-6.2 [facility] Comment on above: Performed By: #### A 1C #### [facility] [address] [address] [address] Milad Garcia IRONon 01-31-2023 Iron [Mass/Vol] 88.0 ug/dL Normal 50.0-170.0 [facility] Comment on above: Performed By: #### I SATNAM #### [facility] [address] [place] [address] Dr. Milad Garcia LIPID PROFILEon 01-31-2023 CHOL-HDL RATIO NORM SEE BELOW Normal [facility] Comment on above: Result Comment: 3.3 - 4.4 LOW RISK 4.4 - 7.1 AVERAGE RISK 7.1 - 11.0 MODERATE RISK >11.0 HIGH RISK Performed By: #### L IPID, TSH, CMP, T7 #### [facility] [address] [address] [address] Milad Garcia Cholesterol [Mass/Vol] 194 mg/dL Normal <=200 [facility] Comment on above: Performed By: #### L IPID, TSH, CMP, T7 #### [facility] [address] [address] [address] Milad Garcia Cholesterol in HDL [Mass/Vol] 73 mg/dL Critically high 40-60 [facility] Comment on above: Performed By: #### L IPID, TSH, CMP, T7 #### [facility] [address] [address] [address] Milad Garcia Cholesterol in LDL [Mass/Vol] 105.0 mg/dL Normal [facility] Comment on above: Performed By: #### L IPID, TSH, CMP, T7 #### [facility] [address] [address] [address] Milad Garcia Cholesterol.total/Ch olesterol in HDL [Mass ratio] 2.7 {ratio} Normal [facility] Comment on above: Performed By: #### L IPID, TSH, CMP, T7 #### [facility] [address] [address] [address] Milad Garcia HDL NORMAL > or = 60 mg/dl - LO W CARDIOVASCULAR RISK <40 mg/dl - HIGH CARDIOVASCULAR RISK Normal [facility] Comment on above: Performed By: #### L IPID, TSH, CMP, T7 #### [facility] [address] [address] [address] Milad Garcia LDL CALC NORMAL SEE BELOW Normal [facility] Comment on above: Result Comment: <100 mg/dl OPTIMAL 100 - 129 mg/dl NEAR OR ABOVE OPTIMAL 130 - 159 mg/dl BORDERLINE HIGH 160 - 189 mg/dl HIGH >190 mg/dl VERY HIGH Performed By: #### L IPID, TSH, CMP, T7 #### [facility] [address] [address] [address] Milad Garcia Triglyceride [Mass/Vol] 80 mg/dL Normal <=150 [facility] Comment on above: Performed By: #### L IPID, TSH, CMP, T7 #### [facility] [address] [address] [address] Milad Garcia VLDL CALC 16.0 mg/dL Normal [facility] Comment on above: Performed By: #### L IPID, TSH, CMP, T7 #### [facility] [address] [address] [address] Milad Garcia PROF 14(COMP METB)on 023 Albumin [Mass/Vol] 4.0 g/dL Normal 3.4-5.0 [facility] Comment on above: Performed By: #### L IPID, TSH, CMP, T7 #### [facility] [address] [place] [address] Dr. Milad Garcia Albumin/Globulin [Mass ratio] 1.4 {ratio} Normal [facility] Comment on above: Performed By: #### L IPID, TSH, CMP, T7 #### [facility] [address] [place] [address] Dr. Milad Garcia ALP [Catalytic activity/Vol] 61 U/L Normal 46-116 [facility] Comment on above: Performed By: #### L IPID, TSH, CMP, T7 #### [facility] [address] [place] [address] Dr. Milad Garcia ALT [Catalytic activity/Vol] 20 U/L Normal 14-59 [facility] Comment on above: Performed By: #### L IPID, TSH, CMP, T7 #### [facility] [address] [place] [address] Dr. Milad Garcia Anion gap [Moles/Vol] 14.2 mmol/L Normal [facility] Comment on above: Performed By: #### L IPID, TSH, CMP, T7 #### [facility] [address] [place] [address] Dr. Milad Garcia AST [Catalytic activity/Vol] 7 U/L Critically low 15-37 [facility] Comment on above: Performed By: #### L IPID, TSH, CMP, T7 #### [facility] [address] [address] [address] Milad Garcia Bilirubin [Mass/Vol] 0.3 mg/dL Normal 0.2-1.0 [facility] Comment on above: Performed By: #### L IPID, TSH, CMP, T7 #### [facility] [address] [address] [address] Milad Garcia Calcium [Mass/Vol] 9.0 mg/dL Normal 8.5-10.1 [facility] Comment on above: Performed By: #### L IPID, TSH, CMP, T7 #### [facility] [address] [place] [address] Dr. Milad Garcia Chloride [Moles/Vol] 106 mmol/L Normal 98-107 [facility] Comment on above: Performed By: #### L IPID, TSH, CMP, T7 #### [facility] [address] [place] [address] Dr. Milad Garcia CO2 [Moles/Vol] 25.6 mmol/L Normal 21.0-32.0 [facility] Comment on above: Performed By: #### L IPID, TSH, CMP, T7 #### [facility] [address] [place] [address] Dr. Milad Garcia Creatinine [Mass/Vol] 0.87 mg/dL Normal 0.55-1.02 [facility] Comment on above: Performed By: #### L IPID, TSH, CMP, T7 #### [facility] [address] [place] [address] Dr. Milad Garcia EGFR-AF GABONESE >60 Normal >=60 [facility] Comment on above: Performed By: #### L IPID, TSH, CMP, T7 #### [facility] [address] [place] [address] Dr. Milad Garcia EGFR-NON AF GABONESE >60 Normal >=60 [facility] Comment on above: Performed By: #### L IPID, TSH, CMP, T7 #### [facility] [address] [place] [address] Dr. Milad Garcia Globulin (S) [Mass/Vol] 2.9 g/dL Normal [facility] Comment on above: Performed By: #### L IPID, TSH, CMP, T7 #### [facility] [address] [address] [address] Milad Garcia Glucose [Mass/Vol] 90 mg/dL Normal 74-106 [facility] Comment on above: Performed By: #### L IPID, TSH, CMP, T7 #### [facility] [address] [place] [address] Dr. Milad Garcia Potassium [Moles/Vol] 3.8 mmol/L Normal 3.5-5.1 [facility] Comment on above: Performed By: #### L IPID, TSH, CMP, T7 #### [facility] [address] [place] [address] Dr. Milad Garcia Protein [Mass/Vol] 6.9 g/dL Normal 6.4-8.2 [facility] Comment on above: Performed By: #### L IPID, TSH, CMP, T7 #### [facility] [address] [place] [address] Dr. Milad Garcia Sodium [Moles/Vol] 142 mmol/L Normal 136-145 [facility] Comment on above: Performed By: #### L IPID, TSH, CMP, T7 #### [facility] [address] [place] [address] Dr. Milad Garcia Urea nitrogen [Mass/Vol] 15.0 mg/dL Normal 7.0-18.0 [facility] Comment on above: Performed By: #### L IPID, TSH, CMP, T7 #### [facility] [address] [place] [address] Dr. Milad Garcia Urea nitrogen/Creatinine [Mass ratio] 17.2 mg/mg Normal [facility] Comment on above: Performed By: #### L IPID, TSH, CMP, T7 #### [facility] [address] [place] [address] Dr. Milad Garcia TSHon 01-31-2023 TSH 0.493 uIU/mL Normal 0.358-3.[address] [facility] Comment on above: Performed By: #### L IPID, TSH, CMP, T7 #### [facility] [address] [address] [address] Milad Garcia CBC AUTO DIFFon 11-27-2022 BASO # 0.0 103/ul Normal 0.0-0.1 [facility] Comment on above: Performed By: #### C BC #### [facility] [address] [address] [address] Milad Garcia Basophils/100 WBC (Bld) 0.4 % Normal 0.2-2.0 [facility] Comment on above: Performed By: #### C BC #### [facility] [address] [place] [address] Dr. Milad Garcia EO # 0.1 103/ul Normal 0.0-0.7 [facility] Comment on above: Performed By: #### C BC #### [facility] [address] [place] [address] Dr. Milad Garcia Eosinophils/100 WBC (Bld) 0.9 % Normal 0.9-7.0 [facility] Comment on above: Performed By: #### C BC #### [facility] [address] [place] [address] Dr. Milad Garcia Erythrocyte distribution width (RBC) [Ratio] 13.0 % Normal 11.0-15.0 [facility] Comment on above: Performed By: #### C BC #### [facility] [address] [place] [address] Dr. Milad Garcia Hematocrit (Bld) [Volume fraction] 42.0 % Normal 36.0-48.0 [facility] Comment on above: Performed By: #### C BC #### [facility] [address] [place] [address] Dr. Milad Garcia Hemoglobin (Bld) [Mass/Vol] 13.3 g/dL Normal 12.0-16.0 [facility] Comment on above: Performed By: #### C BC #### [facility] [address] [place] [address] Dr. Milad Garcia IG # 0.02 10e3/ul Normal 0.00-0.03 [facility] Comment on above: Performed By: #### C BC #### [facility] [address] [place] [address] Dr. Milad Garcia IG % 0.2 % Normal 0.0-0.5 [facility] Comment on above: Performed By: #### C BC #### [facility] [address] [place] [address] Dr. Milad Garcia LYMPH # 2.8 103/ul Normal 1.2-3.8 [facility] Comment on above: Performed By: #### C BC #### [facility] [address] [place] [address] Dr. Milad Garcia Lymphocytes/100 WBC (Bld) 32.2 % Normal 20.5-60.0 [facility] Comment on above: Performed By: #### C BC #### [facility] [address] [place] [address] Dr. Milad Garcia MANUAL DIFF REQ NO Normal [facility] Comment on above: Performed By: #### C BC #### [facility] [address] [place] [address] Dr. Milad Garcia MCH (RBC) [Entitic mass] 31.5 pg Normal 26.7-34.0 [facility] Comment on above: Performed By: #### C BC #### [facility] [address] [place] [address] Dr. Milad Garcia MCHC (RBC) [Mass/Vol] 31.7 g/dL Normal 29.9-35.2 [facility] Comment on above: Performed By: #### C BC #### [facility] [address] [place] [address] Dr. Milad Garcia MCV (RBC) [Entitic vol] 99.5 fL Critically high 81.0-99.0 [facility] Comment on above: Performed By: #### C BC #### [facility] [address] [place] [address] Dr. Milad Garcia MONO # 0.6 103/ul Normal 0.3-0.8 [facility] Comment on above: Performed By: #### C BC #### [facility] [address] [place] [address] Dr. Milad Garcia Monocytes/100 WBC (Bld) 6.8 % Normal 1.7-12.0 [facility] Comment on above: Performed By: #### C BC #### [facility] [address] [place] [address] Dr. Milad Garcia NEUT # 5.1 103/ul Normal 1.4-6.5 [facility] Comment on above: Performed By: #### C BC #### [facility] [address] [place] [address] Dr. Milad Garcia Neutrophils/100 WBC (Bld) 59.5 % Normal 43.0-75.0 [facility] Comment on above: Performed By: #### C BC #### [facility] [address] [place] [address] Dr. Milad Garcia Platelet mean volume (Bld) [Entitic vol] 10.0 fL Normal 9.5-13.5 [facility] Comment on above: Performed By: #### C BC #### [facility] [address] [place] [address] Dr. Milad Garcia PLT 247 103/ul Normal 150-450 [facility] Comment on above: Performed By: #### C BC #### [facility] [address] [place] [address] Dr. Milad Garcia RBC 4.22 106/ul Normal 4.20-5.40 [facility] Comment on above: Performed By: #### C BC #### [facility] [address] [place] [address] Dr. Milad Garcia WBC 8.6 103/ul Normal 4.0-11.0 [facility] Comment on above: Performed By: #### C BC #### [facility] [address] [place] [address] Dr. Milad Garcia LIPASEon 11-27-2022 Lipase [Catalytic activity/Vol] 50.0 U/L Critically low 73.0-393.0 [facility] Comment on above: Performed By: #### I NAELULIN #### [facility] [address] [address] [address] Milad Garcia PROF 14(COMP METB)on 023 Albumin [Mass/Vol] 3.7 g/dL Normal 3.4-5.0 [facility] Comment on above: Performed By: #### I NSULIN #### [facility] [address] [address] [address] Milad Garcia Albumin/Globulin [Mass ratio] 1.3 {ratio} Normal [facility] Comment on above: Performed By: #### I NSULIN #### [facility] [address] [address] [address] Milad Garcia ALP [Catalytic activity/Vol] 72 U/L Normal 46-116 [facility] Comment on above: Performed By: #### I NSULIN #### [facility] [address] [place] [address] Dr. Milad Garcia ALT [Catalytic activity/Vol] 14 U/L Normal 14-59 [facility] Comment on above: Performed By: #### I NSULIN #### [facility] [address] [address] [address] Milad Garcia Anion gap [Moles/Vol] 11.5 mmol/L Normal [facility] Comment on above: Performed By: #### I NSULIN #### [facility] [address] [place] [address] Dr. Milad Garcia AST [Catalytic activity/Vol] 13 U/L Critically low 15-37 [facility] Comment on above: Performed By: #### I NSULIN #### [facility] [address] [address] [address] Milad Garcia Bilirubin [Mass/Vol] 0.3 mg/dL Normal 0.2-1.0 [facility] Comment on above: Performed By: #### I NSULIN #### [facility] [address] [address] [address] Milad Garcia Calcium [Mass/Vol] 8.8 mg/dL Normal 8.5-10.1 [facility] Comment on above: Performed By: #### I NSULIN #### [facility] [address] [address] [address] Milad Garcia Chloride [Moles/Vol] 105 mmol/L Normal 98-107 [facility] Comment on above: Performed By: #### I NSULIN #### [facility] [address] [address] [address] Milad Garcia CO2 [Moles/Vol] 26.1 mmol/L Normal 21.0-32.0 [facility] Comment on above: Performed By: #### I NSULIN #### [facility] [address] [address] [address] Milad Garcia Creatinine [Mass/Vol] 0.78 mg/dL Normal 0.55-1.02 [facility] Comment on above: Performed By: #### I NSULIN #### [facility] [address] [place] [address] Dr. Milad Garcia EGFR-AF GABONESE >60 Normal >=60 [facility] Comment on above: Performed By: #### I NSULIN #### [facility] [address] [address] [address] Milad Garcia EGFR-NON AF GABONESE >60 Normal >=60 [facility] Comment on above: Performed By: #### I NSULIN #### [facility] [address] [place] [address] Dr. Milad Garcia Globulin (S) [Mass/Vol] 2.9 g/dL Normal [facility] Comment on above: Performed By: #### I NSULIN #### [facility] [address] [address] [address] Milad Garcia Glucose [Mass/Vol] 112 mg/dL Critically high 74-106 [facility] Comment on above: Performed By: #### I NSULIN #### [facility] [address] [address] [address] Milad Garcia Potassium [Moles/Vol] 3.6 mmol/L Normal 3.5-5.1 [facility] Comment on above: Performed By: #### I NSULIN #### [facility] [address] [address] [address] Milad Garcia Protein [Mass/Vol] 6.6 g/dL Normal 6.4-8.2 [facility] Comment on above: Performed By: #### I NSULIN #### [facility] [address] [address] [address] Milad Garcia Sodium [Moles/Vol] 139 mmol/L Normal 136-145 [facility] Comment on above: Performed By: #### I NSULIN #### [facility] [address] [address] [address] Milad Garcia Urea nitrogen [Mass/Vol] 10.0 mg/dL Normal 7.0-18.0 [facility] Comment on above: Performed By: #### I NSULIN #### [facility] [address] [place] [address] Dr. Milad Garcia Urea nitrogen/Creatinine [Mass ratio] 12.8 mg/mg Normal [facility] Comment on above: Performed By: #### I NSULIN #### [facility] [address] [address] [address] Milad Garcia TROPONIN, HIGH SENSITIVITYon 11-27-2022 HSTROP <4.0 Normal 4.0-51.3 [facility] Comment on above: Result Comment: CUT- OFF POINTS HAVE BEEN ESTABLISHED BASED ON THE FOURTH UNIVERSAL DEFINITIONS OF MYOCARDIAL INFARCTION. THE UPPER REFERENCE LIMIT (URL) OF TROPONIN, DEFINED THE 99TH PERCENTILE OF cTnI DISTRIBUTION IN A REFERENCE POPULATION, HAS BEEN CONFIRMED THE DECISION THRESHOLD FOR [place] DIAGNOSIS. Performed By: #### L IPA, HSTROPN, CMP #### [facility] [address] [address] [address] Milad Garcia XR RIBS LT PA [...] by: DANIS ORTEGA Date: 2022-11-27 17:27 Normal [facility] MG MAMM RT DIAG FUon 023 MG MAMM RT DIAG FU Patient: AURORA MONTAGUE Exam Date: 11/07/2022 : 1975 Gender:F Ordering : DR TANG MCGEE . Admission #: [id number] Family : Order #: [id number] CLICK HERE TO VIEW EXAM RADIOLOGY REPORT [...] lung cancer at age 73. LOCATION: [facility] BREAST COMPOSITION: Heterogeneously dense,which may [...] M.D. on 11/07/2022 at 11:04 Normal [facility] US BREAST RIGHT LIMITEDon US BREAST RIGHT LIMITED Patient: AURORA MONTAGUE Exam Date: 11/07/2022 : 1975 Gender:F Ordering : DR TANG MCGEE . Admission #: [id number] Family : Order #: [id number] CLICK HERE TO VIEW EXAM RADIOLOGY REPORT PROCEDURE: MAMMOGRAM RIGHT DIAGNOSTIC DIGITAL FOLLOW UP, 11/07/2022, 10:21 ULTRASOUND BREAST RIGHT LIMITED, 11/07/2022, 10:53 COMPARISON: MG MAMM DX 3D RT CAD, 08/19/2021. MAMMO POST BIOPSY RIGHT, 02/13/2021. MG MAMM SCREEN DANA W CAD, 07/20/2017. MG MAMM SCREEN 3D DANA CAD, 09/02/2022. INDICATIONS: Abnormal findings on diagnostic imaging of breast Calculator Name [facility] Breast Cancer Risk Assessment Tool 5 Year Breast Cancer Risk 1.40% Lifetime Breast Cancer Risk 12.50% Personal Breast Cancer No Personal Ovarian Cancer No Treatments None Family Cancers Sister with cervical cancer at age 42; Sister with kidney cancer at age 59; Father with lung cancer at age 72. LOCATION: [facility] BREAST COMPOSITION: Heterogeneously dense,which may [...] Hernandez M.D. on 11/07/2022 at 11:04 Normal [facility] XR CSPINE MIN 4 VIEWSon XR CSPINE [...] DANIS BERGER Date: 2022-09-03 18:43 Normal [facility] MAMM SCREEN 3D DANA CADon 09-02-2022 MG MAMM SCREEN 3D DANA CAD Patient: AURORA MONTAGUE Exam Date: 09/02/2022 : 1975 Gender:F Ordering : DR TANG MCGEE . Admission #: [id number] Family : Order #: [id number] CLICK HERE TO VIEW EXAM RADIOLOGY REPORT [...] lung cancer at age 73. LOCATION: [facility] BREAST COMPOSITION: Heterogeneously dense,which may [...] Berger MD on 09/03/2022 at 08:25 Normal [facility] XR CHEST 2 Von 05-22-2022 [...] by: DANIS BERGER Date: 2022-05-22 16:45 Normal [facility] PAP ACOG PANEL 2: 30 to 65on 04-25-2022 . . Normal [facility] Comment on above: Result Comment: Perf ormed at: WB Performed By: #### I NSULIN #### [facility] [address] [place] [address] Dr. Milad Garcia Age Gdln ACOG Testing 30-65 Normal [facility] Comment on above: Performed By: #### I NSULIN #### [facility] [address] [address] [address] Milad Garcia DIAGNOSIS: Comment Normal [facility] Comment on above: Result Comment: NEGA TIVE FOR INTRAEPITHELIAL LESION OR MALIGNANCY. THIS SPECIMEN WAS RESCREENED PART OF OUR YOUTH ACCOMMODATION SUPPORT WORKER PROGRAM. Performed at: WB Performed By: #### I NSULIN #### [facility] [address] [place] [address] Dr. Milad Garcia HPV Aptima Negative Normal Negative [facility] Comment on above: Result Comment: This nucleic acid amplification test detects fourteen high-risk HPV types (16,18,31,33,35,39,45,51,52,56,58,59,66,68) without differentiation. Performed at: =G Performed By: #### I NSULIN #### [facility] [address] [place] [address] Dr. Milad Garcia Methodology: Comment Normal [facility] Comment on above: Result Comment: This liquid based ThinPrep(R) pap test was screened with the use of an image guided system. Performed at: WB Performed By: #### I NSULIN #### [facility] [address] [place] [address] Dr. Milad Garcia Note: Comment Normal [facility] Comment on above: Result Comment: The Pap smear is a screening test designed to aid in the detection of premalignant and malignant conditions of the uterine cervix. It is not a diagnostic procedure and should not be used as the sole means of detecting cervical cancer. Both false-positive and false-negative reports do occur. . Performed at: WB Performed By: #### I NSULIN #### [facility] [address] [address] [address] Milad Garcia Performed by: Comment Normal [facility] Comment on above: Result Comment: Micaela Fernandez, Beautician Apprentice (ASCP) Performed at: WB Performed By: #### I NSULIN #### [facility] [address] [place], [place] [address] Dr. Milad Garcia QC reviewed by: Comment Normal [facility] Comment on above: Result Comment: Brando Ruby, Beautician Apprentice (ASCP) Performed at: WB Performed By: #### I NSULIN #### [facility] [address] [address] [address] Milad Garcia Specimen adequacy: Comment Normal [facility] Comment on above: Result Comment: Sati sfactory for evaluation. No endocervical component is identified. Performed at: WB Performed By: #### I NSULIN #### [facility] [address] [address] [address] Milad Garcia MRI LSPINE WO CONon [...] PATIENCE HERNANDEZ Date: 2022-04-15 10:32 Normal [facility] SYMPTOMATIC COVID-19 ANTIGEN on 04-09-2022 EUA Statement SEE BELOW Normal [facility] Comment on above: Result Comment: This [...] sooner. Performed By: #### I NSULIN #### [facility] [address] [place] [address] Dr. Milad Garcia SARS-CoV-2 (COVID-19) RNA TINO+probe Ql (Unsp spec) Positive Critically abnormal NEGATIVE [facility] Comment on above: Performed By: #### I NSULIN #### [facility] [address] [address] [address] Milad Garcia CULTURE URINEon 04-04-2022 CULTURE URINE Culture Observations : LIGHT GROWTH OF MIXED GENITAL JOSEFA. NO POTENTIAL PATHOGENS SEEN. Normal [facility] Comment on above: Performed By: #### I NSULIN #### [facility] [address] [place] [address] Dr. Milad Garcia UA RANDOM W/MICROSCOPICon BACTERIA TRACE Abnormal NONE SEEN [facility] Comment on above: Performed By: #### U AMIC #### [facility] [address] [address] [address] Milad Garcia Bilirubin Ql (U) Negative Normal NEGATIVE [facility] Comment on above: Performed By: #### U AMIC #### [facility] [address] [address] [address] Milad Garcia CAST NONE SEEN Normal NONE SEEN [facility] Comment on above: Performed By: #### U AMIC #### [facility] [address] [address] [address] Milad Garcia Clarity (U) CLEAR Normal CLEAR [facility] Comment on above: Performed By: #### U AMIC #### [facility] [address] [place] [address] Dr. Milad Garcia Color (U) LT. YELLOW Normal YELLOW [facility] Comment on above: Performed By: #### U AMIC #### [facility] [address] [place] [address] Dr. Milad Garcia Crystals LM Nom (Urine sed) NONE SEEN Normal NONE SEEN [facility] Comment on above: Performed By: #### U AMIC #### [facility] [address] [address] [address] Milad Garcia Epithelial cells LM Ql (Urine sed) RARE Normal NONE SEEN /RARE [facility] Comment on above: Performed By: #### U AMIC #### [facility] [address] [address] [address] Milad Garcia Glucose Ql (U) Negative Normal NEGATIVE [facility] Comment on above: Performed By: #### U AMIC #### [facility] [address] [address] [address] Milad Garcia Hemoglobin Ql (U) TRACE-INTACT Abnormal NEGATIVE [facility] Comment on above: Performed By: #### U AMIC #### [facility] [address] [place] [address] Dr. Milad Garcia Ketones Ql (U) Negative Normal NEGATIVE [facility] Comment on above: Performed By: #### U AMIC #### [facility] [address] [address] [address] Milad Garcia LEUKOCYTES Negative Normal NEGATIVE [facility] Comment on above: Performed By: #### U AMIC #### [facility] [address] [address] [address] Milad Garcia MUCOUS NONE SEEN Normal NONE SEEN [facility] Comment on above: Performed By: #### U AMIC #### [facility] [address] [address] [address] Milad Garcia Nitrite Ql (U) Negative Normal NEGATIVE [facility] [place] Comment on above: Performed By: #### U AMIC #### [facility] [address] [place] [address] Dr. Milad Garcia pH (U) 6.5 [pH] Normal 5-9 [facility] Comment on above: Performed By: #### U AMIC #### [facility] [address] [place] [address] Dr. Milad Garcia RBC 0-2 Normal 0-2 [facility] Comment on above: Performed By: #### U AMIC #### [facility] [address] [place] [address] Dr. Milad Garcia SPEC GRAVITY <=1.005 Abnormal 1.005-<=1.02 5 [facility] Comment on above: Performed By: #### U AMIC #### [facility] [address] [place] [address] Dr. Milad Garcia UA PROTEIN Negative Normal NEGATIVE/ TRACE [facility] Comment on above: Performed By: #### U AMIC #### [facility] [address] [place] [address] Dr. Milad Garcia Urobilinogen Qn (U) 0.2 {Dior'U}/dL Normal 0.2 - 1. 0 [facility] Comment on above: Performed By: #### U AMIC #### [facility] [address] [place] [address] Dr. Milad Garcia WBC NONE SEEN Normal NONE SEEN [facility] Comment on above: Performed By: #### U AMIC #### [facility] [address] [place] [address] Dr[address] Milad Garcia XR LSPINE MIN 4 [...] PATIENCE HERNANDEZ Date: 2022-04-04 17:30 Normal [facility] XR foot RT min 3V*on 022 XR foot RT min 3V* [facility] Other XR foot RT min 3V* [facility] [employer] Other XR foot RT min 3V* [address] [place] [address] [employer] Other XR foot RT min 3V* [place] [address] [employer] Other XR foot RT min 3V* XRay Report [facility] Other XR foot RT min 3V* Signed [facility] Other XR foot RT min 3V* Patient: Aurora Montague MR#: [id number] [facility] Other XR foot RT min 3V* [id number] [facility] Other XR foot RT min 3V* : 1975 Acct:[id number] [facility] Other XR foot RT min 3V* Age/Sex: 46 / F ADM Date: 11/14/21 [facility] Other XR foot RT min 3V* Loc: XDUCLY Room: Type: REG CLI [facility] Other XR foot RT min 3V* Attending Dr: José Miguel Beltran PA-C [facility] Other XR foot RT min 3V* Ordering Provider: José Miguel Beltran [employer] Other XR foot RT min 3V* Date of Service: 11/14/21 [facility] Other XR foot RT min 3V* XR/XR foot RT min 3V*: Injury of right foot, initial encounter [facility] Other XR foot RT min 3V* Copies to: José Miguel Beltran [facility] Other XR foot RT min 3V* RIGHT FOOT - 3 views [facility] Other XR foot RT min 3V* COMPARISON: None [facility] Other XR foot RT min 3V* Reason for exam: Proximal phalanx pain of the third, fourth and fifth digits status post injury for [facility] Other XR foot RT min 3V* 1 day. [facility] Other XR foot RT min 3V* No focal soft tissue abnormality is noted. No acute bony process is seen. Joint spaces appear [facility] Other XR foot RT min 3V* well-maintained. No bony erosions. [facility] Other XR foot RT min 3V* XR/XR foot RT min 3V* [facility] Other XR foot RT min 3V* IMPRESSION: [facility] Other XR foot RT min 3V* NO ACUTE BONY INJURY. [facility] Other XR foot RT min 3V* Impression dictated by: Ruben Kelsey Jr., D.OJuan J11/14/2021 3:49 PM cicayda [facility] Other XR foot RT min 3V* Dictation Location: [address] [facility] Other XR foot RT min 3V* Transcribed By: PWS 11/14/21 1541 [facility] Other XR foot RT min 3V* Dictated By: Ruben Kelsey Jr, DO 11/14/21 1540 [facility] Other XR foot RT min 3V* Signed By: [facility] Other XR foot RT min 3V* 11/14/[address] [place] [address] [employer] Other Progress Noteon 03-16-2018 HIM IP Note OR Business Information Manager [facility] Vital Signs Date Time Vital Sign Value Performing Clinician Facility 08-03-2025 15:01-0400 Diastolic blood pressure 55 mm[Hg] Flower Sharron CASINO ASSISTANT MANAGER-C Work Phone: [facility] 08-03-2025 15:01-0400 Heart rate 66 /min Flower Sharron CASINO ASSISTANT MANAGER-C Work Phone: [facility] 08-03-2025 15:01-0400 Respiratory rate 18 /min Flower Kraftmer CASINO ASSISTANT MANAGER-C Work Phone: [facility] 08-03-2025 15:01-0400 SaO2% (BldA) [Mass fraction] 94 % Flower Sharron CASINO ASSISTANT MANAGER-C Work Phone: [facility] 08-03-2025 15:01-0400 Systolic blood pressure 114 mm[Hg] Flowermarvin Kraftmer CASINO ASSISTANT MANAGER-C Work Phone: [facility] 08-03-2025 14:00-0400 Body temperature 98.5 [degF] Flower Kraftmer CASINO ASSISTANT MANAGER-C Work Phone: [facility] 08-03-2025 13:59-0400 Body height 170.18 cm Flowermarvin Mcdermott CASINO ASSISTANT MANAGER-C Work Phone: [facility] 08-03-2025 13:59-0400 Body weight 90 kg Flower Sharron CASINO ASSISTANT MANAGER-C Work Phone: [facility] 07-10-2025 14:55-0400 Body mass index (BMI) [Ratio] [...] Hospital 06-27-2025 11:31-0400 Body weight 94 kg [facility] 06-14-2025 16:32-0400 Body temperature 98.6 [degF] Deon Fuentes MD [facility] 06-14-2025 16:32-0400 Diastolic blood pressure 56 mm[Hg] Deon Fuentes MD [facility] Phone[facility] 06-14-2025 16:32-0400 Heart rate 54 /min Deon Fuentes MD [facility] Phone[facility] 06-14-2025 16:32-0400 Respiratory rate 18 /min Deon Fuentes MD [facility] Phone[facility] 06-14-2025 16:32-0400 SaO2% (BldA) [Mass fraction] 98 % Deon Fuentes MD [facility] Phone[facility] 06-14-2025 16:32-0400 Systolic blood pressure 126 mm[Hg] Deon Fuentes MD Work Phone[email or web address] 06-14-2025 13:45-0400 Body height 172.1 cm Deon Fuentes MD Work Phone: [facility] 06-14-2025 13:45-0400 Body mass index (BMI) [Ratio] 33.39 kg/m2 Deon Fuentes MD Work Phone: [facility] 06-14-2025 13:45-0400 Body weight 98.88 kg Deon Fuentes MD Work Phone: [facility] 10-28-2024 14:05-0500 Body height 170.2 cm Bhavana Mckay MD Work Phone: [facility] Comment on above: per patient 10-28-2024 14:05-0500 Body mass index (BMI) [Ratio] 33.67 kg/m2 Bhavana Mckay MD Work Phone: [facility] 10-28-2024 14:05-0500 Body temperature 98.4 [degF] Bhavana Mckay MD Work Phone: [facility] 10-28-2024 14:05-0500 Body weight 97.52 kg Bhavana Mckay MD Work Phone: [facility] Comment on above: per patient 10-28-2024 14:05-0500 Diastolic blood pressure 75 mm[Hg] Bhavana Mckay MD Work Phone: [facility] 10-28-2024 14:05-0500 Heart rate 78 /min Bhavana Mckay MD Work Phone: [facility] 10-28-2024 14:05-0500 Systolic blood pressure 122 mm[Hg] Bhavana Mckay MD Work Phone: [facility] 10-03-2024 10:22-0500 Body mass index (BMI) [Ratio] [...] 120 mm[Hg] Tang Everardo DO Work Phone: [facility] 09-06-2024 11:06-0500 Body height 170.2 cm Rakesh Thompson PA-C Work Phone: [facility] 09-06-2024 11:06-0500 Body mass index (BMI) [Ratio] 33.67 kg/m2 Rakesh Allenay PA-C Work Phone: [facility] 09-06-2024 11:06-0500 Body weight 97.52 kg Rakesh Allenay PA-C Work Phone: [facility] 04-26-2024 11:55-0400 Diastolic blood pressure 67 mm[Hg] Ashley Shah MD Work Phone: [facility] 04-26-2024 11:55-0400 Heart rate 75 /min Ashley Shah MD Work Phone: [facility] 04-26-2024 11:55-0400 Respiratory rate 24 /min Ashley Shah MD Work Phone: [facility] 04-26-2024 11:55-0400 SaO2% (BldA) [Mass fraction] 100 % Ashley Shah MD Work Phone: [facility] 04-26-2024 11:55-0400 Systolic blood pressure 111 mm[Hg] Ashley Shah MD Work Phone: [facility] 04-26-2024 10:42-0400 Body height 170.2 cm Ashley Shah MD Work Phone: [facility] 04-26-2024 10:42-0400 Body mass index (BMI) [Ratio] 33.67 kg/m2 Ashley Shah MD Work Phone: [facility] 04-26-2024 10:42-0400 Body weight 97.52 kg Ashley Shah MD Work Phone: [facility] 03-11-2024 11:20-0400 Body height 170.2 cm Rakesh Godfray PA-C Work Phone: [facility] 03-11-2024 11:20-0400 Body mass index (BMI) [Ratio] 33.67 kg/m2 Rakesh Godfray PA-C Work Phone: [facility] 03-11-2024 11:20-0400 Body weight 97.52 kg Rakesh Godfray PA-C Work Phone: [facility] 03-11-2024 11:20-0400 Diastolic blood pressure 68 mm[Hg] Rakesh Godfray PA-C Work Phone: [facility] 03-11-2024 11:20-0400 Heart rate 71 /min Rakesh Godfray PA-C Work Phone: [facility] 03-11-2024 11:20-0400 Systolic blood pressure 129 mm[Hg] Rakesh Godfray PA-C Work Phone: [facility] 02-29-2024 13:15-0400 Body height 172.7 cm Ashley Shah MD Work Phone: [facility] 02-29-2024 13:15-0400 Body mass index (BMI) [Ratio] 32.69 kg/m2 Ashley Shah MD Work Phone: [facility] 02-29-2024 13:15-0400 Body weight 97.52 kg Ashley Shah MD Work Phone: [facility] 02-29-2024 13:15-0400 Diastolic blood pressure 69 mm[Hg] Ashley Shah MD Work Phone: [facility] 02-29-2024 13:15-0400 Heart rate 76 /min Ashley Shah MD Work Phone: [facility] 02-29-2024 13:15-0400 Systolic blood pressure 101 mm[Hg] Ashley Shah MD Work Phone: [facility] 02-19-2024 11:20-0400 Body height 170.2 cm Rakesh Thompson PA-C Work Phone: [facility] 02-19-2024 11:20-0400 Body weight 96.16 kg Rakesh Thompson PA-C Work Phone: [facility] 02-15-2024 15:56-0400 Body height 172.09 cm [facility] 02-15-2024 15:56-0400 Body mass index (BMI) [Ratio] 33.7 kg/m2 [facility] 02-15-2024 15:56-0400 Body temperature 98.3 [degF] [facility] 02-15-2024 15:56-0400 Body weight 99.79 kg [facility] 02-15-2024 15:56-0400 Heart rate 87 /min [facility] 02-15-2024 15:56-0400 Respiratory rate 18 /min [facility] 02-15-2024 15:56-0400 SaO2% (BldA) [Mass fraction] 96 % [facility] 03-10-2023 10:03-0400 Body height 170.2 cm Rakesh Jesusdominick PA-C Work Phone: [facility] 03-10-2023 10:03-0400 Body weight 96.16 kg Rakesh Jesusdominick PA-C Work Phone: [facility] 09-26-2022 15:05-0500 Body height 175.26 cm José Miguel Fuentes Other [facility] Other 09-26-2022 15:05-0500 Body mass index (BMI) [Ratio] 30.86 kg/m2 José Miguel Fuentes Other [facility] Other 09-26-2022 15:05-0500 Body temperature 98.4 [degF] José Miguel Fuentes Other [facility] Other 09-26-2022 15:05-0500 Body weight 94.8 kg José Miguel Fuentes Other [facility] Other 09-26-2022 15:05-0500 Diastolic blood pressure 65 mm[Hg] José Miguel Fuentes Other [facility] Other 09-26-2022 15:05-0500 Respiratory rate 18 /min José Miguel Fuentes Other [facility] Other 09-26-2022 15:05-0500 SaO2% (BldA) [Mass fraction] 97 % José Miguel Fuentes Other [facility] Other 09-26-2022 15:05-0500 Systolic blood pressure 110 mm[Hg] José Miguel Fuentes Other [facility] Other 02-06-2022 11:30-0400 Body height 175.26 cm Armand De Paz Other [facility] Other 02-06-2022 11:30-0400 Body mass index (BMI) [Ratio] 29.53 kg/m2 Armand De Paz Other [facility] Other 02-06-2022 11:30-0400 Body weight 90.72 kg Armand De Paz Other [facility] Other 11-14-2021 15:20-0500 Body height 175.26 cm José Miguel Beltran Other [facility] Other 11-14-2021 15:20-0500 Body mass index (BMI) [Ratio] 29.89 kg/m2 José Miguel Beltran Other [facility] Other 11-14-2021 15:20-0500 Body temperature 97.3 [degF] José Miguel Beltran Other [facility] Other 11-14-2021 15:20-0500 Body weight 91.81 kg José Miguel Beltran Other [facility] Other 11-14-2021 15:20-0500 Diastolic blood pressure 78 mm[Hg] José Miguel Beltran Other [facility] Other 11-14-2021 15:20-0500 Respiratory rate 18 /min José Miguel Beltran Other [facility] Other 11-14-2021 15:20-0500 SaO2% (BldA) [Mass fraction] 97 % José Miguel Beltran Other [facility] Other 11-14-2021 15:20-0500 Systolic blood pressure 130 mm[Hg] José Miguel Beltran Other [facility] Other Encounters Encounter Date Encounter Type Care Provider Facility Start: 08-03-2025 End: 08-03-2025 Emergency department patient visit Flower SONGC Work Phone: -Emergency Room Work Phone: Start: 07-24-2025 [facility] Start: 07-14-2025 End: 07-14-2025 E-mail encounter from caregiver Rakesh Kandi DENNISON Work Phone: [facility] Start: 07-14-2025 End: 07-14-2025 Patient encounter procedure Rakesh Allenmicheal DENNISON Work Phone: [facility] Comment on above: appointment Thursday Start: 07-10-2025 End: 07-10-2025 Office outpatient visit 15 minutes Tang Everardo DO Work Phone: [facility] Comment on above: Labial abscess; Yeast infection Start: 07-10-2025 End: 07-10-2025 ambulatory TANG EVERARDO Not Available Start: 07-10-2025 End: 07-10-2025 Bamboo flowsheet Tang Everardo DO Work Phone: [facility] Start: 07-10-2025 End: 07-10-2025 Bamboo flowsheet Tang Everardo DO Work Phone: [facility] Start: 06-27-2025 End: 06-27-2025 Telemedicine consultation with patient Rakesh Allenmicheal DENNISON Work Phone: [facility] Start: 06-27-2025 End: 06-27-2025 ambulatory Rakesh Allenmicheal HENRY-Dayna Work Phone: [facility] Comment on above: Closed compression f racture of L2 vertebra, initial encounter (HCC) (Primary Dx) Start: 06-27-2025 End: 06-27-2025 ambulatory NON STAFF [facility] Work Phone: Start: 06-27-2025 End: 06-27-2025 Patient encounter procedure Mckenna Paul [facility]ANVI [facility] Neurosurgery Work Phone: Start: 06-22-2025 End: 06-22-2025 Admission to same day surgery center Juan Manuelewa HENRY Work Phone: [facility] Start: 06-22-2025 End: 06-22-2025 E-mail encounter from caregiver Juan Manuel Yu ELAINE Work Phone: [facility] Start: 06-20-2025 ambulatory NON STAFF Facility:[facility] Start: 06-20-2025 Registered Recurring Renea Hill MD [facility] Start: 06-16-2025 End: 06-19-2025 ambulatory Rakesh Thompson PA-C Work Phone: [facility] Comment on above: Compression Factor o n my L2 Start: 06-16-2025 End: 06-19-2025 Telephone encounter Rakesh Thompson PA-C Work Phone: Neurology Comment on above: Returning Patient's Call Start: 06-14-2025 End: 06-14-2025 Emergency department patient visit Deon Fuentes MD Work Phone: [facility] Comment on above: Motor [...] 11-11-2024 Subsequent hospital visit by physician Salomon [facility] Alejandra (I-Stat/3t) [facility] Comment on above: Demyelinating diseas e of central nervous system (HCC) [G37.9] Start: 11-11-2024 End: 11-11-2024 ambulatory BHAVANA MCKAY Facility:[facility] Start: 11-11-2024 End: 11-11-2024 Office outpatient new 30 minutes Juan Manuel HENRY Work Phone: [facility]opa[facility] Comment on above: 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); C7 radiculopathy; Left shoulder pain, unspecified chronicity Start: 10-28-2024 End: 10-28-2024 Subsequent hospital visit by physician Xr dayna Roberts 1 Xray [facility] Comment on above: Left shoulder pain, unspecified chronicity [M25.512] Start: 10-28-2024 End: 10-28-2024 ambulatory BHAVANA MCKAY Facility:[facility] Start: 10-28-2024 End: 10-28-2024 Patient encounter procedure Bhavana Mckay MD Work Phone: [facility] Comment on above: Demyelinating diseas [...] ambulatory Rakesh Thompson PA-C Work Phone: [facility] Comment on above: MRI Start: 10-03-2024 End: 10-03-2024 Bamboo flowsheet Tang Everardo DO Work Phone: [facility] Start: 10-03-2024 End: 10-09-2024 Bamboo flowsheet Tang Everardo DO Work Phone: [...] DO Work Phone: [facility] Start: 09-06-2024 End: 09-06-2024 ambulatory RAKESH THOMPSON Facility:[facility] Start: 09-06-2024 End: 09-06-2024 Patient encounter procedure Rakesh Thompson PA-C Work Phone: [facility] Comment on above: Chronic midline low back [...] 07-27-2024 ambulatory Nella Gill PT Work Phone: [facility] Comment on above: Chronic midline low back pain without sciatica (Primary Dx) Start: 07-08-2024 End: 07-08-2024 ambulatory Angelic Pope PT Work Phone: [facility] Comment on above: Chronic midline low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 in the process. [facility]12-02-2024 Miscellaneous Notes* Telephone Encounter - Deya Stapleton - 10/03/2024 4:19 PM EST Patient came in to the office today for her MRI appointment.The patient's MRI was not authorized toproceed. I brought the patient back and explained to her that it appears she was sent a My Chart message regarding the MRI and the financial aspect of it. Patient was very understanding and I suggested that we rescheduled the appointment in case there was still a chance that the approval is still in the process. documented in this encounterRiverview Health Institute12-02-2024 History of Present illness Narrative* Ekta Olson LPN - 10/03/2024 10:00 AM EST Reason for Appointment: Patient ID: Lana Montague [...] nursing note reviewed. Exam conducted with a spa associate present. Vitals: Estimated body mass index is [...] difficulty and patient given mammogram order to havescheduled/obtained. Orders Placed This Encounter Procedures Bilateral screening mammogram CHLAMYDIA TRACHOMATIS (GENITO/STI) Neisseria gonorrhea DNA probe, direct Follow Up: Patient is to return in one year for annual unless needed otherwise. Documented by Ekta Olson LPN on behalf of: Tang Mcgee DO documented in this encounterEllett Memorial [id number] History of Present illness Narrative* Ekta Olson LPN - 09/28/2024 2:50 PM EST Reason for Appointment: Patient ID: Lana Montague is a 49 y.o. female who presents for Vaginitis/Bacterial Vaginosis and UTIconcerns Patient presents today for Acute Visit. MEDICATIONS [...] nursing note reviewed. Exam conducted with a spa associate present. Vitals: Estimated body mass index is [...] Pt given order for UA to have obtainedin 7 weeks. Documented by Ekta Olson LPN on behalf of: Tang Mcgee DO documented in this encounterEllett Memorial [id number] History of Present illness Narrative* Rakesh Thompson PA-C - 09/06/2024 11:15 AM EST Images from the original note were not [...] (100mg qAM), Klonopin (1mg BID) -Previously tried: [place], robaxin, diclofenac 75mg BID ,medrol dose [...] and Invizia plate with Dr. Harvey at [facility] Office visit 03/11/24: Here today for evaluation [...] Some dexterity issues. States this has gotten alittle worse in the right hand. Still weakness [...] C6 corpectomy and fusion on 11/18/16 at [facility]. Prior to surgery she had severe pain [...] the face. Seen in ED and prescribed [place] as well as amoxicillin for possible tooth infection. 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 Treating providers: --Neurosurgery Dr. [...] injections or therapy that may be appropriate. Inaddition I do suspect that there is a [...] of her upper extremity symptoms. At this pointthe patient is really not interested in any Surgery unless it is mandatory. I advised her that it is definitely not a mandatory procedure I do not think that her deficits worsening are considerably related to these findings. PAIN EVALUATION 09/05/2024 2236 09/06/2024 1103 09/06/2024 1106 Pain Level: 8 8 8 Pain Location: Back Back-Lower Back-Lower neck neck Description: Aching;Burning;Contraction;Cramping;Pulsating;Radiating;Sharp;Shooting;Stabbing; Stiffness;Tightness;Tingling Sharp;Radiating;Burning;Stabbing Radiating;Burning;Stabbing;Sharp Duration Amount of Time: 2 [...] no palpable subluxation or step-off, tenderness to midlinelumbar spine and lumbar paraspinals at and below [...] and fusion extending from C4 to C7. Seamer Panty Hose (topogram) images: No significant findings. Alignment: Alignment [...] upper limb and additional studies of the rightupper limb disclose the followin. Sensory and motor nerve conduction responses within normal limits 2. 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 Continued pain posterior neck.No recent radicular arm pain. She had a neck specific PT session 03/18/24 and states she was told tocontinue her HEP since she was already doing [...] which included preparing to see the patient, [id number] patient care, completing clinical documentation, obtaining and/or reviewing separately obtained history, performing a medically appropriate examination, counseling and educating the pat ient/family/caregiver, and ordering medications, tests, or procedures. SIGNATURE: Rakesh Thompson PA-C PATIENT NAME: Aurora Montague DATE: September 06, 2024 TIME: 11:15 AM documented in this encounterRiverview Health Institute11-05-2024 NoteHNO ID: [id number] Author: RAKESH THOMPSON PA-C Service: ? Author Type: Physician Polisher Sand Type: Progress Notes Filed: 09/07/2024 09:35 Note [...] (100mg qAM), Klonopin (1mg BID) -Previously tried: [place], robaxin, diclofenac 75mg BID ,medrol dose [...] and Invizia plate with Dr. Harvey at [facility] Office visit 03/11/24: Here today for evaluation [...] Office visit 03/10/23: History (more content not included)...[facility]11-04-2024 Telephone encounter Note* Telephone Encounter - Yadira Ramírez MA - 09/05/2024 9:09 AM EST Pharmacy calling in requesting refills as follows: Requested Prescriptions Pending Prescriptions Disp Refills hyoscyamine (LEVSIN) 0.125 mg tablet [Pharmacy Med Name: HYOSCYAMINE SULF 0.125 MG TAB] 60 tablet 1 Sig: TAKE 1 TABLET BY MOUTH TWO TIMES A DAY AT 6 AM AND 9 PM [facility] - 02/29/2024 [facility]11-04-2024 Miscellaneous Notes* Telephone Encounter - Yadira Ramírez MA - 09/05/2024 9:09 AM EST Pharmacy calling in requesting refills as follows: Requested Prescriptions Pending Prescriptions Disp Refills hyoscyamine (LEVSIN) 0.125 mg tablet [Pharmacy Med Name: HYOSCYAMINE SULF 0.125 MG TAB] 60 tablet 1 Sig: TAKE 1 TABLET BY MOUTH TWO TIMES A DAY AT 6 AM AND 9 PM [facility] - 02/29/2024 documented in this encounterRiverview Health Institute09-30-2024 Telephone encounter Note * Telephone Encounter - Whitney Thorpe LPN - 08/01/2024 12:50 PM EDT Refill Request Last office visit: 02/29/24 Request [...] above. Please process accordingly. Whitney Thorpe LPN [facility]09-30-2024 Miscellaneous Notes* Telephone Encounter - Whitney Thorpe LPN - 08/01/2024 12:50 PM EDT Refill Request Last office visit: 02/29/24 Request [...] accordingly. Whitney Thorpe LPN documented in this encounterRiverview Health Institute09-26-2024 Telephone encounter Note * Telephone Encounter - Yadira Ramírez MA - 07/28/2024 7:13 AM EDT Pharmacy has requested the following refill(s): Requested Prescriptions Pending Prescriptions Disp Refills sucralfate (CARAFATE) 1 gram tablet [Pharmacy Med Name: SUCRALFATE 1 GM TABLET] 60 tablet 0 Sig: TAKE 1 TABLET BY MOUTH TWO TIMES A DAY BEFORE MEALS. [facility]09-26-2024 Miscellaneous Notes* Telephone Encounter - Yadira Ramírez MA - 07/28/2024 7:13 AM EDT Pharmacy has requested the following refill(s): Requested Prescriptions Pending Prescriptions Disp Refills sucralfate (CARAFATE) 1 gram tablet [Pharmacy Med Name: SUCRALFATE 1 GM TABLET] 60 tablet 0 Sig: TAKE 1 TABLET BY MOUTH TWO TIMES A DAY BEFORE MEALS. documented in this encounterRiverview Health Institute09-25-2024 NoteHNO ID: [id number] Author: NELLA DUPONT PT Service: ? Author [...] treatment included: Therapeutic exercise, Neuromuscular re-education, and Self-retirement management. Patient has had improvements in lumbar ROM, LE and core strength, ability to perform functional activities, and decreased pain since initiating physical therapy services. Patient continues to have LBP and hip pain. Is going to follow up with physician. Goals for Episode of Care: created on 05/27/24 through 07/27/24 Updated 07/27/24 Grants in home exercise program. MET Patient will [...] a lot today. She went into a [employer] kitchen, and they had a board she [...] Intervention: Education in proprioceptive/kinesth (more content not included)...[facility]09-25-2024 History of Present illness Narrative* Nella Dupont, PT - 07/27/2024 3:45 PM EDT Images from the original note were not [...] from Physical Therapy services due to goal achievementand maximal benefit.. Patient was seen for 4 visits from Start of Care Date: 05/27/24 to 07/27/2024 and treatment included: Therapeutic exercise, Neuromuscular re-education, and Self-retirement management. Patient has had improvements in lumbar ROM, LE and core strength, ability to perform functionalactivities, and decreased pain since initiating physical therapy services. Patient continues to have LBP and hip pain. Is going to follow up with physician. Goals for Episode of Care: created on 05/27/24 through 07/27/24 Updated 07/27/24 Grants in home exercise program. MET Patient will decrease pain rating by 2 points to meet minimal clinical important difference for numeric pain rating scale. Not MET Patient will demonstrate increase in R LE strength to 4+/5 during manual muscle testing in order toimprove function for basic self-care tasks, home management tasks, and moderate to heavy functionaltasks. MET Patient will increase flexibility of bilateral hamstrings to WNL to improve ability to maintain proper posture, improve mechanics, and decrease pain. Not MET Perform ADLs and work duties with decreased report of symptoms/pain in 8 weeks. Not MET SUBJECTIVE: Patient reports that she is having trouble with her right arm. Just woke up one morningand could not move it. She is hurting a lot today. She went into a [employer] kitchen, and they had a board she [...] exercises in regards to decreasing fatigue , improvingfitness, increase ease of ADL, and ROM and [...] 1617 Nella Dupont PT documented in this encounterRiverview Health Institute09-06-2024 History of Present illness Narrative* Angelic Pope, PT - 07/08/2024 2:36 PM EDT Program_ID:[id number] Access Code: [email or web address] URL: [email or web address] Date: 07-08-2024 Prepared By: Nella Dupont Program [...] weekly - 3 sets - 10 reps * Angelic Pope PT - 07/08/2024 1:51 PM EDT Episode Visit Count: 3 Therapist That Will [...] in car more recently. 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 Pt feels like the [...] Home Exercise Program Assigned: 1: Access Code: [email or web address] URL: [email or web address] Date: 07/08/2024 Prepared by: Angelic Pope Exercises [...] 1434 Angelic Pope PT documented in this encounterRiverview Health Institute09-06-2024 NoteHNO ID: [id number] Author: ANGELIC POPE PT Service: ? Author [...] Home Exercise Program Assigned: 1: Access Code: [email or web address] URL: [email or web address] Date: 07/08/2024 Prepared by: Angelic Pope Exercises [...] Session Stop Time : 1434 Angelic Pope [facility]08-26-2024 Telephone encounter Note* Telephone Encounter - Yadira Ramírez MA - 06/27/2024 7:42 AM EDT Pharmacy calls in requesting the following refill(s): Requested Prescriptions Pending Prescriptions Disp Refills sucralfate (CARAFATE) 1 gram tablet [Pharmacy Med Name: SUCRALFATE 1 GM TABLET] 60 tablet 0 Sig: TAKE 1 TABLET BY MOUTH TWO TIMES A DAY BEFORE MEALS. [facility]08-26-2024 Miscellaneous Notes* Telephone Encounter - Yadira Ramírez MA - 06/27/2024 7:42 AM EDT Pharmacy calls in requesting the following refill(s): Requested Prescriptions Pending Prescriptions Disp Refills sucralfate (CARAFATE) 1 gram tablet [Pharmacy Med Name: SUCRALFATE 1 GM TABLET] 60 tablet 0 Sig: TAKE 1 TABLET BY MOUTH TWO TIMES A DAY BEFORE MEALS. documented in this encounterRiverview Health Institute08-16-2024 History of Present illness Narrative* Nella Dupont, PT - 06/17/2024 3:58 PM EDT Program_ID:[id number] Access Code: [email or web address] URL: [email or web address] Date: 06-17-2024 Prepared By: Nella Dupont Program [...] weekly - 1 sets - 10 reps * Nella Dupont, PT - 06/17/2024 3:21 PM EDT Episode Visit Count: 2 Therapist That Will [...] this visit, with increased difficulty of exercises performedtoday. The patient will continue to benefit from ongoing skilled physical therapy to progress toward set goals. PLAN FOR NEXT VISIT: Progress as able SUBJECTIVE: Patient reports that things have been good. Her hip feels the same. She can feel it in her back andthen in the side of her foot. Feels like it is going to [employer]. Pain: Pain Pain Level: 4 Pain Location: [...] exercises in regards to decreasing fatigue , improvingfitness, increase ease of ADL, and ROM and [...] 1604 Nella Dupont PT documented in this encounterRiverview Health Institute07-26-2024 History of Present illness Narrative* Nella Dupont PT - 05/27/2024 2:34 PM EDT Program_ID:[id number] Access Code: [email or web address] URL: [email or web address] Date: 05-27-2024 Prepared By: Nella Dupont Program [...] x weekly - sets - 2 reps * Nella Dupont PT - 05/27/2024 2:07 PM EDT Images from the original note were not [...] of Care: created on 05/27/24 through 07/26/24 Grants in home exercise program. Patient will decrease pain rating by 2 points to meet minimal clinical important difference for numeric pain rating scale. Patient will demonstrate increase in R LE strength to 4+/5 during manual muscle testing in order toimprove function for basic self-care tasks, home management tasks, and moderate to heavy functionaltasks. 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 It runs in her family. 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, spoke to [facility]. Resubmitted additional information via fax to . Freya Kirby RN [facility]06-26-2024 Telephone encounter Note* Telephone Encounter - Freya Kirby RN - 04/27/2024 11:10 AM EDT Images from the original note were not included. [facility]06-26-2024 Miscellaneous Notes* Telephone Encounter - Freya Kirby RN - 04/27/2024 11:10 AM EDT Call to [facility], spoke to [facility]. Resubmitted additional information via fax to . Freya Kirby RN * Telephone Encounter - Freya Kirby RN - 04/27/2024 11:10 AM EDT Images from the original note were not included. documented in this encounterRiverview Health Institute06-25-2024 Nurse Note* Maribell Becerra RN - 04/26/2024 11:42 AM EDT POST OP LEARNING RESPONSE INSTRUCTION PROVIDED TO: [...] Maribell Becerra RN In Department: AMBULATORY SURGERY [facility]06-25-2024 Nurse Note* Maribell Becerra RN - 04/26/2024 11:42 AM EDT POST OP LEARNING RESPONSE INSTRUCTION PROVIDED TO: [...] Maribell Becerra RN In Department: AMBULATORY SURGERY * Tracie Caballero RN - 04/26/2024 10:44 AM EDT PRE OP LEARNING ASSESSMENT PROCEDURE/SURGERY: GI PROCEDURES: [...] In Department: AMBULATORY SURGERY documented in this encounterRiverview Health Institute06-25-2024 History and physical note * Ashley Shah MD - 04/26/2024 10:45 AM EDT SEDATION HISTORY AND PHYSICAL EXAM SERVICE DATE: [...] DATE: April 26, 2024 TIME: 11:01 AM [facility]06-25-2024 History and physical note* Ashley Shah MD - 04/26/2024 10:45 AM EDT SEDATION HISTORY AND PHYSICAL EXAM SERVICE DATE: [...] 2024 TIME: 11:01 AM documented in this encounterRiverview Health Institute06-25-2024 Nurse Note* Tracie Caballero RN - 04/26/2024 10:44 AM EDT PRE OP LEARNING ASSESSMENT PROCEDURE/SURGERY: GI PROCEDURES: Colonoscopy and EGD READINESS TO LEARN COGNITIVE ABILITY: Alert and oriented MOTIVATION TO LEARN: Interested FAMILY SUPPORT: High - Very involved in pt care PATIENT LEARNS BEST BY: Individual Instruction Written Instruction - Hand-outs Verbal Instruction FACTORS AFFECTING LEARNING: None PHYSICAL LIMITATIONS AFFECTING LEARNING: None Electronically Signed By: Tracie Caballero RN In Department: AMBULATORY SURGERY [facility]05-20-2024 History of Present illness Narrative* Delfina Jurado RT(R) - 03/21/2024 9:00 AM EDT Radiology Service Progress Note DATE OF SERVICE: [...] PATIENT PRESENTS WITH AN IMPLANTABLE OR ATTACHED BELT SPLICER: No ALLERGIES: Reviewed and unchanged CONTRAST ALLERGY: [...] creatinine assay has traceable calibration to isotope dilution- mass spectrometry. Refer to KDIGO guidelines for clinical interpretation. In patients with unstable renal function, e.g. those with acute kidney injury, the eGFRmay not accurately reflect actual GFR. P.O.C.T. RESULTS: POC done: Yes, See Lab Tab March 21, 2024 TREATMENT: N/A PERIPHERAL IV DATA: Ambulatory: A peripheral IV was started in the Right antecubital site with a Angio cath: 22 gauge. RADIOLOGY DEPARTMENT: CT; Exam(s) Completed: Abdomen/Pelvis SIGNATURE: RT Joanie(R) PATIENT NAME: Aurora Montague DATE: March 21, 2024 TIME: 8:10 AM documented in this encounterRiverview Health Institute05-17-2024 History of Present illness Narrative* Breann Gonzalez PT, DPT - 03/18/2024 2:40 PM EDT Program_ID:[id number] Access Code: [email or web address] URL: [email or web address] Date: 03-18-2024 Prepared By: Breann Gonzalez Program [...] weekly - 2 sets - 15 reps * Breann Gonzalez PT, DPT - 03/18/2024 1:54 PM EDT Images from the original note were not [...] working, lifting, recreational activities, gripping . She presentswith impairments in ADL's, overall function, posture, strength, and tissue tenderness. PROMIS (Patient- Reported Outcomes Measurement Information System) scores were reviewed [...] on functional outcome measure score. Evaluation required moderatedecision making skills. Goals for Episode of Care: created on 03/18/24 through 05/13/24 Pt will exhibit proper posturing and scapular retraction throughout session to aid in postural awareness and optimal mechanics through functional tasks of daily living. Grants in home exercise program. Patient will decrease pain to 1/10 with functional activities to allow patient to improve tolerancethrough ADLs. Restore pain free cervical ROM to WNL to allow for improved tolerance through ADLs. 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) Recreation / Current Exercise: lifting, hiking, kayaking Hobbies / Interests: gardening Intake Information: Prescription present Previous Treatment: Surgery , Pain meds Red Flags Vertebral Fracture Red Flags: Female Vertebral Fracture Clinical Reasoning: Proceed with caution due to the above (1- 2) risk factors Cancer Clinical Reasoning: No identified [...] Elbow Flexion (C6): 5/5 Hand Strength R Supervisor Frame Sample And Pattern Position 1 (lbs): 78 lbs R Supervisor Frame Sample And Pattern Position 2 (lbs): 65 lbs R Supervisor Frame Sample And Pattern Position 3 (lbs): 55 lbs L Supervisor Frame Sample And Pattern Position 1 (lbs): 70 lbs L Supervisor Frame Sample And Pattern Position 2 (lbs): 80 lbs L Supervisor Frame Sample And Pattern Position 3 (lbs): 70 lbs Education: Education [...] 1400 Session Stop Time : 1446 Breann Gonzalez, PT, DPT documented in this encounterRiverview Health Institute05-10-2024 History of Present illness Narrative* Rakesh Thompson PA-C - 03/11/2024 11:15 AM EDT Images from the original note were not [...] (100mg qAM), Klonopin (1mg BID) -Previously tried: [place], robaxin, diclofenac 75mg BID ,medrol dose [...] and Invizia plate with Dr. Harvey at [facility] Office visit 02/19/24: Pain is currently 2/10. [...] Some dexterity issues. States this has gotten alittle worse in the right hand. Still weakness [...] C6 corpectomy and fusion on 11/18/16 at [facility]. Prior to surgery she had severe pain [...] the face. Seen in ED and prescribed [place] as well as amoxicillin for possible tooth infection. 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 Treating providers: --Neurosurgery Dr. [...] injections or therapy that may be appropriate. Inaddition I do suspect that there is a [...] of her upper extremity symptoms. At this pointthe patient is really not interested in any Surgery unless it is mandatory. I advised her that it is definitely not a mandatory procedure I do not think that her deficits worsening are considerably related to these findings. PAIN EVALUATION 03/11/2024 0914 03/11/2024 1118 Pain Level: 7 5 Pain Location: Back-Lower Back-Lower Description: Aching;Burning;Cramping;Numbness;Sharp;Shooting;Spasm;Stabbing;Stiffness;Throbbi ng;Tightness Throbbing;Radiating;Sharp Duration Amount of Time: -- 5 Duration Units: -- Months Frequency: Continuous Continuous Intervention/Comfort measure: Medication;Relaxation;Cold;Massage;Pillow support Medication Litigation: No Workers' Compensation: No [...] no palpable subluxation or step-off, tenderness to midlinelumbar spine and lumbar paraspinals at and below [...] Normal FADIR Normal Normal Log-roll Hips: negative Panhandle's (modified):negative Thigh thrust: negative Prone extension: states [...] and fusion extending from C4 to C7. Seamer Panty Hose (topogram) images: No significant findings. Alignment: Alignment [...] upper limb and additional studies of the rightupper limb disclose the followin. Sensory and motor nerve conduction responses within normal limits 2. 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 Re-evaluate after PT course and consideradvanced imaging for interventional planning if pain persists. 1. Imaging/diagnostics: none 2. Physical therapy: start PT 3. Medication: none 4. Referrals: PT 5. Considerations: lumbar MRI, orthopedics for hip pain 6. Follow up: 2 months I spent a total of 25 minutes on the date of the service which included preparing to see the patient, [id number] patient care, completing clinical documentation, obtaining and/or reviewing separately obtained history, performing a medically appropriate examination, counseling and educating the pat ient/family/caregiver, independently interpreting results (not separately reported), and communicating results to the patient/family/caregiver. 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 documented in this encounterRiverview Health Institute04-19-2024 History of Present illness Narrative* Michelle Pope, RT(R) - 02/19/2024 12:30 PM EDT Radiology Service Progress Note PATIENT NAME: Aurora Montague DATE OF SERVICE: February 19, 2024 TIME: 12:33 PM PATIENT IDENTITY VERIFICATION COMPLETED USING TWO (2) IDENTIFIERS: Name and Date of confirmedby patient verbally. FALL SCREENING: Has the patient had 2 falls in the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 Start Date End Date Hugo Damon MD [address] [facility] [place] [address] PCP - General Family Medicine 02/19/23 Flower Mcdermott, CATCH BASIN CLEANER [address] [facility] [place] [address] Internal Medicine 02/19/23 Hugo Damon MD [address] [facility] [place] [address] Referring Family Medicine 12/01/23 Dragline Operator Relationship Specialty Start Date End Date Hugo Damon MD [address] [facility] [place] [address] PCP - General Family Medicine 02/19/23 Flower Mcdermott, CATCH BASIN CLEANER [address] [facility] [place] [address] Internal Medicine 02/19/23 Hugo Damon MD [address] [facility] [place] [address] Referring Family Medicine 12/01/23 Dragline Operator Relationship Specialty Start Date End Date Hugo Damon MD [address] [facility] [place] [address] PCP - General Family Medicine 02/19/23 Flower Mcdermott, [employer] [address] [facility] [place] [address] Internal Medicine 02/19/23 Hugo Damon MD [address] [facility] [place] [address] Referring Family Medicine 12/01/23 Dragline Operator Relationship Specialty Start Date End Date Hugo Damon MD [address] [facility] [place] [address] PCP - General Family Medicine 02/19/23 Flower Mcdermott, [employer] CLE[employer]ER [address] [facility] [place] [address] Internal Medicine 02/19/23 Hugo Damon MD [address] [facility] [place] [address] Referring Family Medicine 12/01/23 Dragline Operator Relationship Specialty Start Date End Date Hugo Damon MD [address] [facility] [place] [address] PCP - General Family Medicine 02/19/23 Flower Mcdermott, [employer] CLE[employer]ER [address] [facility] [place] [address] Internal Medicine 02/19/23 Hugo Damon MD [address] [facility] [place] [address] Referring Family Medicine 12/01/23 Dragline Operator Relationship Specialty Start Date End Date Hugo Damon MD [address] [facility] [place] [address] PCP - General Family Medicine 02/19/23 Flower Mcdermott, [employer] CLE[employer]ER [address] [facility] [place] [address] Internal Medicine 02/19/23 Hugo Damon MD [address] [facility] [place] [address] Referring Family Medicine 12/01/23 Dragline Operator Relationship Specialty Start Date End Date Hugo Damon MD [address] [facility] [place] [address] PCP - General Family Medicine 02/19/23 Flower Mcdermott, [employer] CLE[employer]ER [address] [facility] [place] [address] Internal Medicine 02/19/23 Hugo Damon MD [address] [facility] [place] [address] Referring Family Medicine 12/01/23 Dragline Operator Relationship Specialty Start Date End Date Hugo Damon MD [address] [facility] [place] [address] PCP - General Family Medicine 02/19/23 Flower Mcdermott, [employer] CLE[employer]ER [address] [facility] [place] [address] Internal Medicine 02/19/23 Hugo Damon MD [address] [facility] [place] [address] Referring Family Medicine 12/01/23 Dragline Operator Relationship Specialty Start Date End Date Hugo Damon MD [address] [facility] [place] [address] PCP - General Family Medicine 02/19/23 Flower Mcdermott, [employer] CLE[employer]ER [address] [facility] [place] [address] Internal Medicine 02/19/23 Hugo Damon MD [address] [facility] [place] [address] Referring Family Medicine 12/01/23 Dragline Operator Relationship Specialty Start Date End Date Hugo Damon MD [address] [facility] [place] [address] PCP - General Family Medicine 02/19/23 Flower Mcdermott, [employer] CLE[employer]ER [address] [facility] [place] [address] Internal Medicine 02/19/23 Hugo Damon MD [address] [facility] [place] [address] Referring Family Medicine 12/01/23 Dragline Operator Relationship Specialty Start Date End Date Hugo Damon MD [address] [facility] [place] [address] PCP - General Family Medicine 02/19/23 Flower Mcdermott, [employer] CLE[employer]ER [address] [facility] [place] [address] Internal Medicine 02/19/23 Dragline Operator Relationship Specialty Start Date End Date Hugo Damon MD [address] [facility] [place] [address] PCP - General Family Medicine 02/19/23 Flower Mcdermott, [employer] CLE[employer]ER [address] [facility] [place] [address] Internal Medicine 02/19/23 Dragline Operator Relationship Specialty Start Date End Date Hugo Damon MD [address] [facility] [place] [address] PCP - General Family Medicine 02/19/23 Flower Mcdermott, C[employer] CLE[employer]ER [address] [facility] [place] [address] Internal Medicine 02/19/23 Hugo Damon MD [address] [facility] [place] [address] Referring Family Medicine 12/01/23 Dragline Operator Relationship Specialty Start Date End Date Hugo Damon MD [address] [facility] [place] [address] PCP - General Family Medicine 02/19/23 Flower Mcdermott, C[employer] CLE[employer]ER [address] [facility] [place] [address] Internal Medicine 02/19/23 Hugo Damon MD [address] [facility] [place] [address] Referring Family Medicine 12/01/23 Dragline Operator Relationship Specialty Start Date End Date Hugo Damon MD [address] [facility] [place] [address] PCP - General Family Medicine 02/19/23 Flower Mcdermott, C[employer] CLE[employer]ER [address] [facility] [place] [address] Internal Medicine 02/19/23 Hugo Damon MD [address] [facility] [place] [address] Referring Family Medicine 12/01/23 Dragline Operator Relationship Specialty Start Date End Date Hugo Damon MD [address] [facility] [place] [address] PCP - General Family Medicine 02/19/23 Flower Mcdermott, C[employer] CLE[employer]ER [address] [facility] [place] [address] Internal Medicine 02/19/23 Hugo Damon MD [address] [facility] [place] [address] Referring Family Medicine 12/01/23 Dragline Operator Relationship Specialty Start Date End Date Hugo Damon MD [address] [facility] [place] [address] PCP - General Family Medicine 02/19/23 Flower Mcdermott, C[employer] CLE[employer]ER [address] [facility] [place] [address] Internal Medicine 02/19/23 Hugo Damon MD [address] [facility] [place] [address] Referring Family Medicine 12/01/23 Dragline Operator Relationship Specialty Start Date End Date Hugo Damon MD [address] [facility] [place] [address] PCP - General Family Medicine 02/19/23 Flower Mcdermott CNP [address] [facility] [place] [address] Internal Medicine 02/19/23 Hugo Damon MD [address] [facility] [place] [address] Referring Family Medicine 12/01/23 Dragline Operator Relationship Specialty Start Date End Date Hugo Damon MD [address] [facility] [place] [address] PCP - General Family Medicine 02/19/23 Flower Mcdermott, NAHUM [address] [facility] [place] [address] Internal Medicine 02/19/23 Hugo Damon MD [address] [facility] [place] [address] Referring Family Medicine 12/01/23 Dragline Operator Relationship Specialty Start Date End Date Flower Mcdermott APRN - [employer] [address] [facility] [address] PCP - General 06/14/25 Team Status: Active Member Role Status Dates NON STAFF Primary Care Provider Active Start: June 20, 2025 Sukumar Hill MD Attending Provider Active Start: June 20, 2025 Goals (unrecognized section and content) Goals may be documented in a n alternate section Ordered Prescriptions (unrec ognized section and content) Prescription Sig Dispense Quantity Refills Last Filled Start Date End Date oxyCODONE-acetamin ophen (PERCOCET) 5-325 MG per tabletIndications: Closed compression fracture of L2 lumbar vertebra, initial encounter (HCC) Take 1 tablet by mouth every 6 [...] of L2 lumbar vertebra, initial encounter (HCC) Take 1 tablet by mouth every 6 [...] BE BASED ON THE PRIMARY CLINICAL RECORDS. [employer] provides no warranty or guarantee of the accuracy or completeness of information in this document.
== END 2025-08-11 11:06 | disposition home or self-care (01) ==
LOC: US 11:05
PROVIDERS: PCP Nurse Practitioner Family; Visit Provider Nurse Practitioner Family
DX: R10.11 Right upper quadrant pain (principal); K80.20 Calculus of gallbladder without cholecystitis without obstruction
CPT/HCPCS: 76705

== ENCOUNTER 2025-10-16 12:50 | Outpatient (REF) | payer OTHER, SELFPAY ==
[2025-10-18 10:08] LABS: Age Gdln ACOG Testing Note (.); IGP, Aptima HPV, rfx 16/18,45 Note (.)
== END 2025-10-16 12:51 | disposition home or self-care (01) ==
LOC: LAB 12:50
PROVIDERS: PCP Nurse Practitioner Family; Visit Provider Obstetrics & Gynecology
DX: Z01.419 Encounter for gynecological examination (general) (routine) without abnormal findings (principal); Z90.710 Acquired absence of both cervix and uterus
CPT/HCPCS: 88175